=== PATIENT | female | born 1940 | race Caucasian/White ===

== ENCOUNTER → 2016-09-17 | Outpatient (CLI) | payer OTHER, BC ==
[~2016-09-17] MED LIST: ASPEC81 PO; BIOTCAP2 PO; CHOL100010 PO; CLON1TAB3 PO; CPXI INJ; CYAN100020 PO; CZR25 PO; FENT25DI2 TD; FLV400 PO; GABA800T2 PO; GLC/500 PO; GLIP-197 PO; ISOS30TA35 PO; LEVO50TA PO; LISI20TA3 PO; METH500T37 PO; METO-551 PO; NITR0.4D6; OMEP40CA PO; PANT40TA PO; PROP20TA67 PO; SIMV20TA5 PO; VITA1CRE PO; WARF1TAB6 PO; ZNT/150 PO
--- NOTE | 2016-09-17 15:05 | DIAGNOSTIC IMAGING REPORT ---
ABDOMEN AND PELVIS CT WITH ORAL CONTRAST CT DOSE: 959.81 mGycm HISTORY: Generalized abdominal pain. TECHNIQUE: Multiaxial CT images of the abdomen and pelvis were performed following the use of oral contrast. COMPARISON STUDY: Abdomen and pelvis CT 06/04/2015. FINDINGS: The lung bases are clear. No pneumoperitoneum. No pneumatosis. No suspicious lytic or blastic osseous lesions. Degenerative changes within the lumbar spine are again noted. Cholecystectomy. The unenhanced liver, spleen, pancreas, and adrenal glands are unremarkable. There are punctate bilateral intrarenal calculi. No hydronephrosis. Normal bladder. The uterus and appendix are surgically absent. No retroperitoneal lymphadenopathy. A few colonic diverticula. No bowel wall thickening or obstruction. IMPRESSION: 1. No bowel wall thickening or obstruction. 2. Punctate bilateral intrarenal calculi. No hydronephrosis. 3. Colonic diverticulosis. 4. Postoperative changes as described above. Electronically signed by: Kristopher Farooq M.D. 09/17/2016 3:03 PM Dictated Date/Time: 09/17/2016 2:55 PM
== END | disposition home or self-care (01) ==
LOC: C.CTS 11:51
DX: R10.9 Unspecified abdominal pain (principal); N20.2 Calculus of kidney with calculus of ureter; K57.30 Diverticulosis of large intestine without perforation or abscess without bleeding

== ENCOUNTER → 2016-12-30 | Outpatient (CLI) | payer OTHER, BC ==
[~2016-12-30] MED LIST changes: +ASPI81TA28 PO; +CHOLCAP2 PO; +CMD5 PO; +FING1CAP PO; +FNTTP25 TD; +FOLI1TAB7 PO; +FOLI400T41 PO; +GLC500 PO; +GLIP10TA10 PO; +HYDR-5688 PO; +LEVO75TA5 PO; +LSN20 PO; +NIFE60TA55 PO; +NORT10CA4 PO; +NRN600 PO; +NRN800 PO; +PANT40TA2 PO; +PIOG1TAB25 PO; +PRCSR30 PO; +PRED10TA PO; +RANI150T2 PO; +ROPI1TAB29 PO; +SENN8.6T7 PO; +ULT50 PO; +VALE530C3 PO; +WARF-285 PO
--- NOTE | 2016-12-30 15:08 | MAMMOGRAPHY REPORT ---
BILATERAL DIGITAL SCREENING MAMMOGRAM WITH CAD: 12/30/2016 CLINICAL HISTORY: Routine screening. Patient has no complaints. TECHNIQUE: Current study was also evaluated with a Computer Aided Detection (CAD) system. Bilatera l CC and MLO views were obtained. COMPARISON: Comparison is made to exam dated: 12/18/2015 mammogram - [facility]. BREAST COMPOSITION: The tissue of both breasts is almost entirely fatty. FINDINGS: No suspicious masses, calcifications, or areas of architectural distortion are noted in e ither breast. There has been no significant interval change compared to prior exams. Scattered bilat eral benign-appearing calcifications are not significantly changed. IMPRESSION: ACR BI-RADS CATEGORY 2: BENIGN There is no mammographic evidence of malignancy. A 1 year screening mammogram is recommended. The p atient will receive written notification of the results. Approximately 10% of breast cancers are not detected with mammography. A negative mammographic repor t should not delay biopsy if a clinically suggestive mass is present. Isabel Raphael M.D. ah/:12/30/2016 10:03:16 Attending Technologist: Tana TABOR(R)(M), [facility] Blending Technician: Smiley Tabares, [facility] letter sent: Normal 1/2 BI-RADS Code: ACR BI-RADS Category 2: Benign
== END | disposition home or self-care (01) ==
LOC: C.MAMM 09:28
DX: Z12.31 Encounter for screening mammogram for malignant neoplasm of breast (principal)

== ENCOUNTER → 2017-01-11 | Outpatient (CLI) | payer OTHER, BC ==
[2017-01-11 12:10] LABS: BASO % 0.3 %; BASO ABS # 0.02 K/uL (0-0.2); COMPLETE YES; EOS % 2.5 %; HEMATOCRIT 34.3 % (37-47); IG% 0.1 %; LYMPH % 9.8 %; LYMPH ABS # 0.74 K/uL (1.2-3.4); MEAN CELL VOLUME 93.5 fL (80-100); MEAN CORPUSCULAR HEMOGLOBIN 30.2 pg (25-34); MEAN CORPUSCULAR HGB CONC 32.4 g/dl (32-36); MEAN PLATELET VOLUME 11.4 fL (7.4-10.4); MONO % 9.8 %; NEUT % 77.5 %; PLATELET COUNT 266 K/uL (130-400); RED BLOOD COUNT 3.67 M/uL (4.2-5.4); WHITE BLOOD COUNT 7.57 K/uL (4.8-10.8)
== END | disposition home or self-care (01) ==
LOC: C.LAB 10:14
PROVIDERS: ATTEND Psychiatry & Neurology Neurology
DX: G35 Multiple sclerosis (principal)

== ENCOUNTER → 2017-02-22 | Outpatient (CLI) | payer OTHER, BC ==
[~2017-02-22] MED LIST changes: +GABA-113 PO
--- NOTE | 2017-02-22 12:18 | DIAGNOSTIC IMAGING REPORT ---
ULTRASOUND RIGHT VENOUS DOPP LOWER EXT UNILAT CLINICAL HISTORY: Right leg pain. COMPARISON STUDY: December 2013 FINDINGS: There is echogenic fibrin stranding extending from the common femoral vein to the popliteal vein. This is likely chronic. No acute intraluminal thrombus is visualized. Incidental note is made of a 12 mm cystic structure within the right medial thigh. This abuts the superficial muscle fascia but appears to lie within the subcutaneous fat. IMPRESSION: 1. No evidence of acute right lower extremity DVT 2. Fibrin stranding extending from the common femoral vein to the popliteal vein. This is felt to be chronic 3. 12 mm cystic focus within the fat of the right medial thigh Electronically signed by: Adam Khoury M.D. 02/22/2017 12:17 PM Dictated Date/Time: 02/22/2017 12:14 PM
== END | disposition home or self-care (01) ==
LOC: C.ULTRBC 11:32
DX: M79.661 Pain in right lower leg (principal); I82.501 Chronic embolism and thrombosis of unspecified deep veins of right lower extremity; M79.89 Other specified soft tissue disorders

== ENCOUNTER → 2017-05-27 | Outpatient (CLI) | payer OTHER, BC ==
[~2017-05-27] MED LIST changes: -CMD5 PO; -FOLI400T41 PO; -GABA-113 PO; -HYDR-5688 PO; -NORT10CA4 PO; -NRN600 PO; -PANT40TA2 PO; -PRCSR30 PO; +PRT/40 PO; -SENN8.6T7 PO
[2017-05-27 11:04] LABS: BASO % 0.2 %; BASO ABS # 0.01 K/uL (0-0.2); COMPLETE YES; EOS % 7.7 %; HEMATOCRIT 31.4 % (37-47); IG% 0.2 %; LYMPH % 5.9 %; LYMPH ABS # 0.36 K/uL (1.2-3.4); MEAN CELL VOLUME 92.1 fL (80-100); MEAN CORPUSCULAR HEMOGLOBIN 30.8 pg (25-34); MEAN CORPUSCULAR HGB CONC 33.4 g/dl (32-36); MEAN PLATELET VOLUME 10.6 fL (7.4-10.4); MONO % 14.5 %; NEUT % 71.5 %; PLATELET COUNT 253 K/uL (130-400); RED BLOOD COUNT 3.41 M/uL (4.2-5.4); WHITE BLOOD COUNT 6.13 K/uL (4.8-10.8)
== END | disposition home or self-care (01) ==
LOC: C.LAB 09:38
PROVIDERS: ATTEND Physician Assistant
DX: G35 Multiple sclerosis (principal)

== ENCOUNTER 2017-06-19 07:35 | Emergency (ER) | payer OTHER, BC ==
[~2017-06-19] VITALS: Ht 152.4 cm; Wt 80.0 kg
[~2017-06-19 07:35] MED LIST changes: -ASPI81TA28 PO; -CHOLCAP2 PO; -FING1CAP PO; -FNTTP25 TD; -FOLI1TAB7 PO; -GLC500 PO; -GLIP10TA10 PO; -LEVO75TA5 PO; -LSN20 PO; -NIFE60TA55 PO; -NRN800 PO; -PIOG1TAB25 PO; -PRED10TA PO; -PRT/40 PO; -RANI150T2 PO; -ROPI1TAB29 PO; -ULT50 PO; -VALE530C3 PO; -WARF-285 PO
[2017-06-19 07:41] VITALS: TEMP 36.4; Ht 152.4 cm; Wt 80.0 kg
[2017-06-19] MEDS ORDERED: MoRPHine SULFATE 2 MG/ML CARP IV STA ×3 (08:14→14:12)
[2017-06-19] MEDS ORDERED: FNTTP25 TD (08:38)
[2017-06-19] MEDS ORDERED: FING1CAP PO (08:38)
[2017-06-19] MEDS ORDERED: ROPI1TAB29 PO (08:38)
[2017-06-19] MEDS ORDERED: PRT/40 PO (08:38)
[2017-06-19] MEDS ORDERED: CHOLCAP2 PO (08:38)
[2017-06-19] MEDS ORDERED: GLC500 PO (08:38)
[2017-06-19] MEDS ORDERED: PIOG1TAB25 PO (08:38)
[2017-06-19] MEDS ORDERED: FOLI1TAB7 PO (08:38)
[2017-06-19] MEDS ORDERED: ULT50 PO (08:38)
[2017-06-19] MEDS ORDERED: NIFE60TA55 PO (08:38)
[2017-06-19] MEDS ORDERED: LEVO75TA5 PO (08:38)
[2017-06-19] MEDS ORDERED: NRN800 PO (08:38)
[2017-06-19] MEDS ORDERED: LSN20 PO (08:38)
[2017-06-19] MEDS ORDERED: RANI150T2 PO (08:38)
[2017-06-19] MEDS ORDERED: WARF-285 PO (08:38)
[2017-06-19] MEDS ORDERED: ASPI81TA28 PO (08:38)
[2017-06-19] MEDS ORDERED: GLIP10TA10 PO (08:38)
[2017-06-19] MEDS ORDERED: VALE530C3 PO (08:38)
[2017-06-19] MEDS ORDERED: PROMETHAZINE HCL INJ 12.5 MG in SODIUM CHLORIDE 0.9% 50ML 50 ML IV STA (08:45)
[2017-06-19 08:49] LABS: BASO % 0.6 %; BASO ABS # 0.03 K/uL (0-0.2); COMPLETE YES; EOS % 4.7 %; HEMATOCRIT 34.5 % (37-47); IG% 0.2 %; LYMPH % 8.1 %; LYMPH ABS # 0.43 K/uL (1.2-3.4); MEAN CORPUSCULAR HEMOGLOBIN 31.2 pg (25-34); MEAN CORPUSCULAR HGB CONC 33.9 g/dl (32-36); MEAN PLATELET VOLUME 10.5 fL (7.4-10.4); MONO % 14.8 %; NEUT % 71.6 %; PLATELET COUNT 301 K/uL (130-400); RED BLOOD COUNT 3.75 M/uL (4.2-5.4); WHITE BLOOD COUNT 5.34 K/uL (4.8-10.8)
[2017-06-19 09:06] LABS: URINE APPEARANCE CLEAR (CLEAR); URINE BILIRUBIN NEG (NEG); URINE COLOR YELLOW; URINE EPITHELIAL CELL AUTO >30 /lpf (0-5); URINE NITRITE NEG (NEG); URINE SPECIFIC GRAVITY 1.015 (1.000-1.030); UROBILINOGEN NEG (NEG)
[2017-06-19 09:08] LABS: BUN/CREATININE RATIO 17.8 (10-20); CALCIUM 9.5 mg/dl (8.5-10.1); CREATININE 1.4 mg/dl (0.60-1.20); POTASSIUM 4.6 mmol/L (3.5-5.1)
[2017-06-19 09:09] LABS: ALB/GLOB RATIO 0.8 (0.9-2)
[2017-06-19 09:09] LABS: MANUAL MICROSCOPIC REQUIRED? NO; REVIEW REQ? NO
--- NOTE | 2017-06-19 09:51 | DIAGNOSTIC IMAGING REPORT ---
LUMBAR SPINE 5 VIEWS HISTORY: lumbar back pain COMPARISON: None. FINDINGS: There is no fracture. No subluxation. Cholecystectomy. Mild levoscoliosis of the lumbar spine. Mild to moderate facet degenerative changes most pronounced within the lower lumbar spine. Mild disc space narrowing at L4-L5 and L5-S1. Endplate osteophytes throughout the lumbar spine. IMPRESSION: No fracture or subluxation within the lumbar spine. Degenerative changes and levoscoliosis as described above. Electronically signed by: Kristopher Farooq M.D. 06/19/2017 9:50 AM Dictated Date/Time: 06/19/2017 9:49 AM
--- NOTE | 2017-06-19 09:52 | DIAGNOSTIC IMAGING REPORT ---
LEFT HIP 2 VIEWS HISTORY: Left hip pain COMPARISON: None. FINDINGS: There is no fracture or dislocation. Soft tissues are unremarkable. No radiopaque foreign bodies. IMPRESSION: No fracture or dislocation within the left hip. Electronically signed by: Kristopher Farooq M.D. 06/19/2017 9:51 AM Dictated Date/Time: 06/19/2017 9:50 AM
[2017-06-19] MEDS ORDERED: OPTIRAY 320 IV PRN (11:00)
--- NOTE | 2017-06-19 12:16 | DIAGNOSTIC IMAGING REPORT ---
ABDOMEN AND PELVIS CT WITH IV CONTRAST CT DOSE: 635.36 mGy.cm HISTORY: Left abd pain/flank pain TECHNIQUE: Multiaxial CT images of the abdomen and pelvis were performed following the use of intravenous contrast. A dose lowering technique was utilized adhering to the principles of ALARA. COMPARISON STUDY: Abdomen and pelvis CT 09/17/2016. FINDINGS: Mild dependent changes seen at the lung bases. No pneumoperitoneum. No pneumatosis. Degenerative changes within the lumbar spine are again noted. Cholecystectomy. The liver, pancreas, spleen, adrenal glands are unremarkable. There are few punctate bilateral renal calculi. No ureteral calculi. No hydronephrosis. No retroperitoneal lymphadenopathy. The bladder is unremarkable. The uterus and appendix are surgically absent. Colonic diverticulosis. No bowel wall thickening or obstruction. IMPRESSION: 1. Bilateral nephrolithiasis. No ureteral stones. No hydronephrosis. 2. Colonic diverticulosis. 3. No bowel wall thickening or obstruction. Electronically signed by: Kristopher Farooq M.D. 06/19/2017 12:14 PM Dictated Date/Time: 06/19/2017 12:09 PM
[2017-06-19] MEDS ORDERED: PRED10TA PO (14:22)
[2017-06-19 15:25] VITALS: BP 161/72; PULSE 61; O2SAT 96
--- NOTE | 2017-06-21 05:33 | EMERGENCY ROOM VISIT NOTE ---
ED Visit Note First contact with patient: 07:46 Physician Crisis Manager Supervision Note: I interviewed and examined the patient. Discussed with Michael Rene PA-C and agree with findings and plan as documented in the note. Any exceptions or clarifications are listed here: [None]. XRay results were reviewed with pt and her . Lab work reveals a mild renal insufficiency c/w previous history. Pt continued to complain of pain, CT abd pelvis was ordered and is negative for acute inflammatory process. Pt was informed her chronic narcotic Rx would need to be written by her PCP/neurologist. Pt was d/c to the care of and will return to the ED for worsening of symptoms or any medical concerns. Documented By: Blanka Dodge
--- NOTE | 2017-06-21 15:05 | EMERGENCY ROOM VISIT NOTE ---
History First contact with patient: 07:58 Chief Complaint: PAIN (GENERALIZED) Stated Complaint: SEVERE PAIN IN LT HIP AND BACK History of Present Illness The patient is a 77 year old white female who presents to the Emergency Room with complaints of severe left-sided body pain extends from her abdomen through her left calf. Patient has chronic lower extremity pain, but states it is worse today. She feels as though it must be coming from her hip. With further questioning, she actually has left-sided back pain, left-sided abdominal pain, left-sided hip pain, and pain into her left thigh and calf. She denies any numbness or tingling. There were no falls. She is on narcotics. She uses fennel patches 25 g daily. She has been doubling her patches over the last week. She states she will run out of them. She did call Dr. Pierce's office for refill on Tuesday, but has not heard back from the office. She denies any chest pain or shortness of breath. Her accompanies her today. She denies any urinary symptoms. No cold symptoms such as fevers, chills, sweats, nausea, vomiting, or diarrhea. Review of Systems REVIEW OF SYSTEM: HEENT: No dizziness or tinnitus. There is no difficulty swallowing and no oral lesions are present. LYMPH: No adenopathy. PULMONARY: No cough, shortness of breath, sputum production or hemoptysis. CARDIOVASCULAR: No chest pain, palpitations, shortness of breath or peripheral edema. GASTROINTESTINAL: No diarrhea, constipation, nausea, vomiting. GENITOURINARY: No frequency, urgency or nocturia. NEUROLOGIC: No weakness, muscle tenderness, epilepsy or history of neurological problems. No history of chronic headaches. MUSCULOSKELETAL: No history of joint tenderness/swelling. Positive history of arthritis and arthralgias. Positive history of MS. SKIN: No rashes or lesions. PSYCHIATRIC: Positive history of depression. ENDOCRINE: No history of thyroid disorders, or abnormal hair growth. Positive history of diabetes. Past Medical/Surgical History Medical Problems: (1) Blindness of both eyes (2) Diabetes (3) DVT (deep venous thrombosis) (4) Heart disease (5) HTN (hypertension) (6) MS (multiple sclerosis) Surgical Problems: (1) Hx of cholecystectomy (2) Stented coronary artery Family History Diabetes mellitus FHx: heart disease Hypertension Social History Smoking Status: Never Smoker Smokeless Tobacco Use: No Alcohol Use: none Drug Use: none Marital Status: Housing Status: lives with significant other Occupation Status: retired Current/Historical Medications Scheduled Aspirin (Aspirin Ec), 81 MG PO DAILY Biotin (Biotin 5000), 1 CAP PO QAM Cholecalciferol (D3-50), 1 CAP PO WK Cyanocobalamin (Vitamin B12), 1 TAB PO DAILY Fentanyl (Fentanyl), 1 PATCH TD [id number] Fingolimod Hcl (Gilenya), 1 CAP PO DAILY Folic Acid (Folvite), 1 MG PO DAILY Gabapentin (Gabapentin), 1 TAB PO TID Glipizide (Glipizide), 1 TAB PO BID Levothyroxine Sodium (Levothyroxine Sodium), 1 TAB PO DAILY Lisinopril (Prinivil), 1 TAB PO DAILY Lisinopril (Lisinopril), 1 TAB PO DAILY Metformin HCl (Metformin HCl), 1 TAB PO DAILY Metoprolol Tartrate (Lopressor), 50 MG PO DAILY Nifedipine (Procardia Xl Ext Rel), 1 TAB PO DAILY Pantoprazole (Pantoprazole Sodium), 1 TAB PO DAILY Pioglitazone Hcl (Pioglitazone Hcl), 1 TAB PO DAILY Prednisone Tab (Prednisone), 10 MG PO DIRECTED Ranitidine HCl (Ranitidine HCl), 1 TAB PO BID Ropinirole HCl (Ropinirole HCl), 1 TAB PO BID Simvastatin (Zocor), 1 TAB PO HS Tramadol HCl (Tramadol HCl), 1 TAB PO PRN Valerian (Valeriana Officinali (Valerian Root), 1 CAP PO HS Warfarin Sodium (Warfarin Sodium), 1 TAB PO DAILY Scheduled PRN Clonazepam (Klonopin), 1 MG PO TID PRN for ANXIETY Nitroglycerin (Nitroglycerin), for Chest Pain Allergies Coded Allergies: [place] Blue FCF (Verified Allergy, Unknown, UNKNOWN, 06/19/17) Dimethyl Fumarate (Verified Allergy, Unknown, UNKNOWN, 06/19/17) Physical Exam Vital Signs Date Time Temp Pulse Resp B/P (MAP) Pulse Ox O2 Delivery O2 Flow Rate FiO2 06/19/17 15:25 61 16 161/72 96 06/19/17 14:40 58 17 175/75 95 Room Air 06/19/17 14:01 61 17 182/70 95 Room Air 06/19/17 13:03 62 06/19/17 12:00 63 17 145/82 91 Room Air 06/19/17 11:44 61 14 151/73 95 Room Air 06/19/17 11:00 62 16 166/81 97 Room Air 06/19/17 10:37 58 22 155/71 94 Room Air 06/19/17 09:03 58 18 155/71 98 Room Air 06/19/17 08:55 63 06/19/17 07:41 36.4 64 18 132/71 96 Room Air Physical Exam Gen.: Frail, elderly white female, in no acute distress. Obese. Laying on a bed. Alert and oriented. She does not appear in 06/14 pain. Skin:Warm and dry with good turgor. No rashes or lesions. No ecchymosis or erythema. The patient is not diaphoretic. No abrasions. HEENT: Normocephalic atraumatic. Eyes PERRLA, EOMI. No conjunctiva or scleral injection. Nares patent bilaterally without turbinate enlargement. No significant drainage. No epistaxis. Oropharynx without erythema or exudate. Uvula midline, oral mucosa moist. No lesions present. Heart: Heart RRR. No MGR. Peripheral pulses are 2+. Lungs: Lungs are clear to auscultation. No rhonchi or wheezing. Mild basilar crackles. Fair air movement. The patient is able to take a deep breath. Abdomen: Abdomen was inspected, auscultated, and palpated. Obese. Bowel sounds present x 4. Soft, left-sided tenderness to palpation. No hepato- splenomegaly. No masses noted. No rebound, negative Tavarez sign. No pain over McBurney's point. Mild left CVA tenderness. Musculoskeletal: Low back evaluation reveals no obvious asymmetry or deformity. She has discomfort with palpation from the L3 through S1 vertebrae and disc spaces. Pain extends into the left paraspinal musculature. Pain wraps around to her left flank and hip. She has tenderness with palpation over her quadriceps and hamstring musculature on the left leg. Pain extends into the left gastroc. Intact motor function to the ankle and knee without discomfort. Motion of the left hip is painful for flexion and extension but not for log rolling. She has intact motor function to the hip and is able to perform a straight leg raise with pain. Neurologic: Gross sensation is intact across both lower extremities by soft touch. Peripheral pulses are 2+. Medical Decision & Procedures ER Provider Diagnostic Interpretation: EKG obtained today shows a sinus bradycardia with a rate of 59. No acute ST or T-wave changes. This was reviewed with Dr. Dodge. Lumbar spine and left hip films obtained today arthritic change of the lumbar spine. No significant arthritis within the left hip. No evidence for fracture. CT scan imaging of the abdomen and pelvis with IV contrast was also obtained. This was read by radiology as1. Bilateral nephrolithiasis. No ureteral stones. No hydronephrosis. 2. Colonic diverticulosis. 3. No bowel wall thickening or obstruction Laboratory Results 06/19/17 08:00 Red Blood Count 3.75, Mean Corpuscular Volume 92.0, Mean Corpuscular Hemoglobin 31.2, Mean Corpuscular Hemoglobin Concent 33.9, Mean Platelet Volume 10.5, Neutrophils (%) (Auto) 71.6, Lymphocytes (%) (Auto) 8.1, Monocytes (%) (Auto) 14.8, Eosinophils (%) (Auto) 4.7, Basophils (%) (Auto) 0.6, Neutrophils # (Auto ) 3.83, Lymphocytes # (Auto) 0.43, Monocytes # (Auto) 0.79, Eosinophils # (Auto ) 0.25, Basophils # (Auto) 0.03 06/19/17 08:00 Test 06/19/17 08:00 06/19/17 08:45 White Blood Count 5.34 K/uL (4.8-10.8) Red Blood Count 3.75 M/uL (4.2-5.4) Hemoglobin 11.7 g/dL (12.0-16.0) Hematocrit 34.5 % (37-47) Mean Corpuscular Volume 92.0 fL (80-100) Mean Corpuscular Hemoglobin 31.2 pg (25-34) Mean Corpuscular Hemoglobin Concent 33.9 g/dl (32-36) Platelet Count 301 K/uL (130-400) Mean Platelet Volume 10.5 fL (7.4-10.4) Neutrophils (%) (Auto) 71.6 % Lymphocytes (%) (Auto) 8.1 % Monocytes (%) (Auto) 14.8 % Eosinophils (%) (Auto) 4.7 % Basophils (%) (Auto) 0.6 % Neutrophils # (Auto) 3.83 K/uL (1.4-6.5) Lymphocytes # (Auto) 0.43 K/uL (1.2-3.4) Monocytes # (Auto) 0.79 K/uL (0.11-0.59) Eosinophils # (Auto) 0.25 K/uL (0-0.5) Basophils # (Auto) 0.03 K/uL (0-0.2) RDW Standard Deviation 46.4 fL (36.4-46.3) RDW Coefficient of Variation 13.8 % (11.5-14.5) Immature Granulocyte % (Auto) 0.2 % Immature Granulocyte # (Auto) 0.01 K/uL (0.00-0.02) Anion Gap 6.0 mmol/L (3-11) Est Creatinine Clear Calc Drug Dose 32.0 ml/min Estimated GFR () 42.2 Estimated GFR (Non- 36.4 BUN/Creatinine Ratio 17.8 (10-20) Calcium Level 9.5 mg/dl (8.5-10.1) Total Bilirubin 0.3 mg/dl (0.2-1) Aspartate Amino Transf (AST/SGOT) 30 U/L (15-37) Alanine Aminotransferase (ALT/SGPT) 26 U/L (12-78) Alkaline Phosphatase 74 U/L (45-117) Total Protein 7.8 gm/dl (6.4-8.2) Albumin 3.4 gm/dl (3.4-5.0) Globulin 4.4 gm/dl (2.5-4.0) Albumin/Globulin Ratio 0.8 (0.9-2) Chemistry Specimen Hemolysis Urine Color YELLOW Urine Appearance CLEAR (CLEAR) Urine pH 5.0 (4.5-7.5) Urine Specific Britton 1.015 (1.000-1.030) Urine Protein NEG (NEG) Urine Glucose (UA) NEG (NEG) Urine Ketones NEG (NEG) Urine Occult Blood NEG (NEG) Urine Nitrite NEG (NEG) Urine Bilirubin NEG (NEG) Urine Urobilinogen NEG (NEG) Urine Leukocyte Esterase TRACE (NEG) Urine WBC (Auto) 1-5 /hpf (0-5) Urine RBC (Auto) 0-4 /hpf (0-4) Urine Hyaline Casts (Auto) 1-5 /lpf (0-5) Urine Epithelial Cells (Auto) >30 /lpf (0-5) Urine Bacteria (Auto) NEG (NEG) CBC, chem panel, and UA were obtained. They are unremarkable. Medications Administered Medications (Trade) Dose Ordered Sig/Love Route Start Time Stop Time Status Last Admin Dose Admin Morphine Sulfate (MoRPHine SULFATE INJ) 2 mg NOW STAT IV 06/19/17 08:14 06/19/17 08:30 DC 06/19/17 08:46 2 MG Promethazine HCl 12.5 mg/Sodium Chloride 50.5 ml @ 204 mls/hr NOW STAT IV 06/19/17 08:45 06/19/17 08:59 DC 06/19/17 09:01 204 MLS/HR Morphine Sulfate (MoRPHine SULFATE INJ) 2 mg NOW STAT IV 06/19/17 10:43 06/19/17 10:46 DC 06/19/17 11:12 2 MG Morphine Sulfate (MoRPHine SULFATE INJ) 2 mg NOW STAT IV 06/19/17 14:12 06/19/17 14:13 DC 06/19/17 14:39 2 MG Morphine 2 mg IV 3, Phenergan 12.5 mg IV ED Course Patient and her were educated regarding today's findings. Conservative care measures were discussed. IV was established. Labs were obtained. EKG was also obtained. No significant abnormalities were noted. Lumbar spine and left hip imaging was obtained. No evidence for fracture. She does have considerable arthritic change in the lumbar spine. Imaging of the abdomen and pelvis was obtained using CT. This was unremarkable. She was given multiple doses of morphine 2 mg IV for pain control. She was also given Phenergan 12.5 mg IV. She had some improvement in her pain. She was asking for additional fentanyl patches. I informed her that she must receive these through her neurologist her PCP. I did provide her with a prescription for low-dose prednisone to see if this would improve her discomfort. Continue with her fentanyl patches. She was cautioned about taking too many narcotic medications. Her is also aware. She has Percocet at home to use for breakthrough pain. She may require further imaging such as MRI, of her lumbar spine to evaluate nerve root impingement or disc pathology. Follow-up with her PCP or neurologist this week for further exam. Return to the ED for any inability to void or worsening symptoms. Patient was seen in conjunction with Dr. Dodge, who also evaluated the patient and concurred with today's diagnosis and treatment plan. Medical Decision Possibility of cardiac source, bowel obstruction, ovarian cyst, colitis, hip fracture, DJD, UTI, kidney stone, and radiculopathy were considered, among others. Impression Primary Impression: Lumbar radiculopathy, chronic Departure Information Dispostion Home / Self-Care Condition GOOD Prescriptions Prednisone Tab (PREDNISONE) 10 Mg Tab 10 MG PO DIRECTED, #7 TAB take 2 pills daily x 2 days, then take 1 pill daily x 2 days, then take 1/2 pill daily x 2 days Prov: Michael Rene,P.A. 06/19/17 Referrals Martha Pierce M.D. Forms WORK / SCHOOL INSTRUCTIONS, HOME CARE DOCUMENTATION FORM, IMPORTANT VISIT INFORMATION Patient Instructions My [facility] [employer] Additional Instructions Continue your fentanyl patches as previously directed Start prednisone daily-monitor your sugars Take your oxycodone at home if needed for breakthrough pain Ice to the low back and left hip as needed for discomfort Call your PCP and Dr. Pierce tomorrow to discuss further medication You may require MRI imaging of your lumbar spine for further evaluation Return to the ED for any other worsening of symptoms
== END 2017-06-19 15:25 | disposition home or self-care (01) ==
LOC: C.EDB 07:36
DX: M47.26 Other spondylosis with radiculopathy, lumbar region (principal); G89.29 Other chronic pain; F32.9 Major depressive disorder, single episode, unspecified; E11.9 Type 2 diabetes mellitus without complications; H54.7 Unspecified visual loss; I10 Essential (primary) hypertension; G35 Multiple sclerosis; R00.1 Bradycardia, unspecified; Z86.718 Personal history of other venous thrombosis and embolism; Z95.5 Presence of coronary angioplasty implant and graft; Z79.82 Long term (current) use of aspirin; Z79.01 Long term (current) use of anticoagulants; Z79.84 Long term (current) use of oral hypoglycemic drugs; Z83.3 Family history of diabetes mellitus; Z82.49 Family history of ischemic heart disease and other diseases of the circulatory system

== ENCOUNTER 2017-07-15 12:05 | Inpatient (IN) | payer OTHER, BC ==
[~2017-07-15] VITALS: Ht 152.4 cm; Wt 80.0 kg
[~2017-07-15 12:05] MED LIST changes: -ASPEC81 PO; +ASPI81TA28 PO; -CHOL100010 PO; +CHOLCAP2 PO; -CPXI INJ; -CZR25 PO; -FENT25DI2 TD; +FING1CAP PO; -FLV400 PO; +FNTTP25 TD; +FOLI1TAB7 PO; -GABA800T2 PO; -GLC/500 PO; +GLC500 PO; -GLIP-197 PO; +GLIP10TA10 PO; -ISOS30TA35 PO; -LEVO50TA PO; +LEVO75TA5 PO; +LSN20 PO; -METH500T37 PO; +NIFE60TA55 PO; +NRN800 PO; -OMEP40CA PO; -PANT40TA PO; +PANT40TA2 PO; +PIOG1TAB25 PO; +PRED10TA PO; -PROP20TA67 PO; +RANI150T2 PO; +ROPI1TAB29 PO; +ULT50 PO; +VALE530C3 PO; -VITA1CRE PO; +WARF-285 PO; -WARF1TAB6 PO; -ZNT/150 PO
[2017-07-15] MEDS ORDERED: ONDANSETRON INJ 2 MG/ML 2 ML VIAL IV PRN (12:30)
--- NOTE | 2017-07-15 12:49 | EMERGENCY ROOM VISIT NOTE ---
History Report prepared by Altaf: Maggie Pina Under the Supervision of: Dr. Junito Alvarado M.D. First contact with patient: 12:17 Chief Complaint: HIP PAIN Stated Complaint: LEFT HIP PAIN History of Present Illness The patient is a 77 year old female who presents to the Emergency Room with complaints of persistent left hip pain that began several weeks ago. She currently rates her discomfort as a 10/10 in severity. The patient's states that the patient was evaluated in the emergency department 2 weeks ago and was placed on Prednisone. He states that the patient followed up with her PCP's office and states that her pain has persisted. The patient states that she has been prescribed pain medications that have not alleviated her pain. She states that she is scheduled for an MRI in one week. The patient denies any rash. She states that she is on Coumadin and 81 mg of Aspirin. Source of History: patient Onset: several weeks ago Position: other (left hip) Symptom Intensity: 10/10 Timing: other (persistent) Associated Symptoms: No rash Review of Systems All systems have been listed, reviewed, and are negative other than those previously mentioned. Please see Additional Medical History Sheet. Past Medical & Surgical Medical Problems: (1) Blindness of both eyes (2) Chronic lumbosacral pain (3) Diabetes (4) DVT (deep venous thrombosis) (5) Heart disease (6) HTN (hypertension) (7) MS (multiple sclerosis) (8) Multiple sclerosis exacerbation Surgical Problems: (1) Hx of cholecystectomy (2) Stented coronary artery Family History Diabetes mellitus FHx: heart disease Hypertension Social History Smoking Status: Never Smoker Alcohol Use: none Drug Use: none Marital Status: Housing Status: lives with significant other Occupation Status: retired Current/Historical Medications Scheduled Aspirin (Aspirin Ec), 81 MG PO DAILY Biotin (Biotin 5000), 1 CAP PO QAM Cholecalciferol (D3-50), 1 CAP PO WK Cyanocobalamin (Vitamin B12), 1 TAB PO DAILY Fentanyl (Fentanyl), 1 PATCH TD [id number] Fingolimod Hcl (Gilenya), 1 CAP PO DAILY Folic Acid (Folvite), 400 MCG PO DAILY Gabapentin (Gabapentin), 1 TAB PO BID Glipizide (Glipizide), 1 TAB PO BID Levothyroxine Sodium (Levothyroxine Sodium), 1 TAB PO DAILY Lisinopril (Prinivil), 1 TAB PO DAILY Metformin HCl (Metformin HCl), 1 TAB PO DAILY Nifedipine (Procardia Xl Ext Rel), 1 TAB PO DAILY Pantoprazole (Pantoprazole Sodium), 1 TAB PO DAILY Pioglitazone Hcl (Pioglitazone Hcl), 1 TAB PO DAILY Ranitidine HCl (Ranitidine HCl), 1 TAB PO BID Ropinirole HCl (Ropinirole HCl), 1 TAB PO BID Simvastatin (Zocor), 1 TAB PO HS Tramadol HCl (Tramadol HCl), 1 TAB PO PRN Valerian (Valeriana Officinali (Valerian Root), 1 CAP PO HS Warfarin Sodium (Warfarin Sodium), 1 TAB PO UD Scheduled PRN Nitroglycerin (Nitroglycerin), for Chest Pain Allergies Coded Allergies: [place] Blue FCF (Verified Allergy, Unknown, UNKNOWN, 06/19/17) Dimethyl Fumarate (Verified Allergy, Unknown, UNKNOWN, 06/19/17) Physical Exam Vital Signs Date Time Temp Pulse Resp B/P (MAP) Pulse Ox O2 Delivery O2 Flow Rate FiO2 07/15/17 16:00 60 20 97 Nasal Cannula 2.0 07/15/17 14:32 59 16 100/51 98 Nasal Cannula 2.0 07/15/17 13:22 Nasal Cannula 2.0 07/15/17 13:22 92 Room Air 07/15/17 12:56 60 18 98 Room Air 07/15/17 12:10 36.4 64 22 156/107 96 Room Air Physical Exam GENERAL: Patient awake, alert, oriented x 3. Patient follows commands. Patient is extremely anxious and tearful, appears to be in moderate to severe distress. Patient does not appear toxic. Patient is adequately hydrated and well-nourished. SKIN: No erythema, pallor, cyanosis, rash or signs of trauma. HEENT: Normal head, pupils equal, reactive to light and accommodation. LUNGS: Clear to auscultation. No wheezes, no rales, no rhonchi. HEART: No murmurs. No gallops. No rubs ABDOMEN: Obese, soft, marked left lower quadrant tenderness. EXTREMITIES: Good range of motion of both hips. No signs of trauma. No pedal or pretibial edema. No calf or thigh tenderness. NEUROLOGIC: Cranial nerves II-XII within normal limits. No gross motor sensory function deficits. Medical Decision & Procedures ER Provider Diagnostic Interpretation: Radiology results as stated below per my review and radiologist interpretation: MRI OF THE LUMBAR SPINE WITHOUT IV CONTRAST CLINICAL HISTORY: Lumbar radiculopathy. COMPARISON STUDY: Abdominal CT dated 06/19/2017. TECHNIQUE: MRI of the lumbar spine is performed utilizing various T1 and T2-weighted sequences in the axial and sagittal planes. IV contrast was not administered for this examination. FINDINGS: Marrow signal intensity is heterogeneous. Vertebral body height is maintained throughout the lumbar spine. Minimal anterolisthesis is noted at L4-L5. Alignment is otherwise preserved. Small anterior osteophytes are seen throughout. The transverse and spinous processes appear intact. There is no evidence of spondylolysis. No destructive bony lesion is seen. Chronic degenerative endplate change is seen at all lumbar levels. No significant marrow edema is identified. Intervertebral discs: Degenerative disc desiccation and mild loss of height is seen throughout the lumbar spine. Spinal cord: The partially imaged spinal cord is normal in morphology and signal intensity. The conus medullaris terminates at the level of L1. The nerve roots of the cauda equina are normal in morphology. T12-L1: There is a small posterior disc bulge seen on the lateral projection. The central canal is clear. L1-L2: There is a posterior disc bulge eccentric to the left. There is no significant acquired compromise of the central canal. The disc bulge causes left-sided subarticular stenosis and may impinge on the exiting left L1 and the transiting left L2 nerve roots. The neural foramina are patent. L2-L3: There is a small posterior disc bulge. In conjunction with hypertrophy of the ligamentum flavum, there is minimal acquired compromise of the central canal with a minimum AP diameter of 9.5 mm. There is mild bilateral subarticular stenosis. The neural foramina are patent. L3-L4: There is posterior disc bulge with annular fissure. There is no significant acquired compromise of the central canal at this level. There is mild bilateral subarticular stenosis. Facet arthropathy causes minimal left neural foraminal stenosis. L4-L5: There is broad-based posterior disc bulge with annular fissure eccentric to the right. In conjunction with hypertrophy of the ligamentum flavum, this causes moderate acquired compromise of the central canal with a minimum AP diameter of 6 mm. There is bilateral subarticular stenosis, right greater than left with possible impingement on the exiting right L4 and both transiting nerve roots. There is minimal tethering of the cauda equina at this level. Facet arthropathy causes mild bilateral neural foraminal stenosis. L5-S1: There is a posterior disc bulge with annular fissure. There is no significant acquired compromise of the central canal at this level. There is bilateral subarticular stenosis with possible impingement on the exiting bilateral L5 and the transiting bilateral nerve roots. Facet arthropathy causes moderate bilateral neural foraminal stenosis. Sacrum: The visual sacrum is normal in morphology and signal intensity. Soft tissues: There is fatty atrophy of the paraspinous and iliopsoas musculature. The kidneys demonstrate cortical atrophy. The retroperitoneal structures are grossly unremarkable but incompletely assessed. IMPRESSION: 1. Multilevel lumbosacral spondylosis as above with acquired compromise of the central canal that is greatest at L4-L5. See discussion for detailed [id number] analysis. 2. No destructive bony lesion is seen. Dictated: 07/15/2017 2:49 PM Transcribed: 07/15/2017 3:05 PM [email or web address] Laboratory Results Test 07/15/17 13:00 Immature Granulocyte % (Auto) 0.2 % White Blood Count 5.18 K/uL (4.8-10.8) Red Blood Count 3.54 M/uL (4.2-5.4) Hemoglobin 10.9 g/dL (12.0-16.0) Hematocrit 33.1 % (37-47) Mean Corpuscular Volume 93.5 fL (80-100) Mean Corpuscular Hemoglobin 30.8 pg (25-34) Mean Corpuscular Hemoglobin Concent 32.9 g/dl (32-36) Platelet Count 227 K/uL (130-400) Mean Platelet Volume 10.3 fL (7.4-10.4) Neutrophils (%) (Auto) 73.4 % Lymphocytes (%) (Auto) 10.0 % Monocytes (%) (Auto) 11.2 % Eosinophils (%) (Auto) 4.6 % Basophils (%) (Auto) 0.6 % Neutrophils # (Auto) 3.80 K/uL (1.4-6.5) Lymphocytes # (Auto) 0.52 K/uL (1.2-3.4) Monocytes # (Auto) 0.58 K/uL (0.11-0.59) Eosinophils # (Auto) 0.24 K/uL (0-0.5) Basophils # (Auto) 0.03 K/uL (0-0.2) Immature Granulocyte # (Auto) 0.01 K/uL (0.00-0.02) Erythrocyte Sedimentation Rate 43 mm/hr (0-21) Total Bilirubin 0.2 mg/dl (0.2-1) Aspartate Amino Transf (AST/SGOT) 21 U/L (15-37) Alanine Aminotransferase (ALT/SGPT) 33 U/L (12-78) Alkaline Phosphatase 68 U/L (45-117) Total Creatine Kinase 62 U/L (26-192) Total Protein 7.1 gm/dl (6.4-8.2) Albumin 3.2 gm/dl (3.4-5.0) Globulin 3.9 gm/dl (2.5-4.0) Albumin/Globulin Ratio 0.8 (0.9-2) Laboratory results as stated above per my review. Medications Administered Medications (Trade) Dose Ordered Sig/Love Route Start Time Stop Time Status Last Admin Dose Admin Morphine Sulfate (MoRPHine SULFATE INJ) 4 mg Q1H PRN IV 07/15/17 12:30 07/15/17 23:18 DC 07/15/17 14:33 4 MG Ondansetron HCl (Zofran Inj) 4 mg Q1HWA PRN IV 07/15/17 12:30 07/15/17 23:20 DC 07/15/17 12:56 4 MG Lorazepam (Ativan Inj) 1 mg NOW STAT IV 07/15/17 13:02 07/15/17 13:03 DC 07/15/17 13:18 1 MG ED Course 1218: Past medical records reviewed. The patient was evaluated in room A12B. A complete history and physical examination was performed. 1230: Ordered Zofran Inj 4 mg IV, Morphine Sulfate 4 mg IV. 1302: Ordered Ativan Inj 1 mg IV. 1409: I reevaluated the patient and she is experiencing intractable pain. I discussed the exam findings with her and I discussed the treatment plan. She verbalized complete understanding and agreement. She is going to be evaluated for further treatment. Medical Decision Nurses notes reviewed. Medical history sheet reviewed. Differential diagnosis includes but is not limited to: intraabdominal/pelvic mass, sciatica, lumbar radiculopathy, hip fracture, degenerative joint disease, anxiety. Labs and imaging were obtained. Please see above. The patient's significant degenerative changes in her lower back which I believe is a source of her pain. The patient was complaining of significant pain and did not feel she was capable of returning home. I discussed care with the hospitalist who agreed to further evaluate the patient. The patient was given pain medication here in the ED. Medication Reconcilliation Current Medication List: was personally reviewed by me Blood Pressure Screening Patient's blood pressure: Normal blood pressure Impression Primary Impression: Spinal stenosis Additional Impressions: Degenerative joint disease Intractable pain Scribe Attestation The scribe's documentation has been prepared under my direction and personally reviewed by me in its entirety. I confirm that the note above accurately reflects all work, treatment, procedures, and medical decision making performed by me. Departure Information Dispostion Being Evaluated By Hospitalist Referrals Chris Reis PA-C (PCP) Problem Qualifiers
[2017-07-15] MEDS: MoRPHine SULFATE 4 MG/ML 1 ML CARP\\VIAL IV PRN ×2 (12:56→14:33)
[2017-07-15] MEDS ORDERED: LORAZEPAM 2 MG/ML 1 ML VIAL IV STA (13:02)
[2017-07-15 13:15] LABS: BASO % 0.6 %; BASO ABS # 0.03 K/uL (0-0.2); COMPLETE YES; EOS % 4.6 %; HEMATOCRIT 33.1 % (37-47); IG% 0.2 %; LYMPH ABS # 0.52 K/uL (1.2-3.4); MEAN CELL VOLUME 93.5 fL (80-100); MEAN CORPUSCULAR HEMOGLOBIN 30.8 pg (25-34); MEAN CORPUSCULAR HGB CONC 32.9 g/dl (32-36); MEAN PLATELET VOLUME 10.3 fL (7.4-10.4); MONO % 11.2 %; NEUT % 73.4 %; PLATELET COUNT 227 K/uL (130-400); RED BLOOD COUNT 3.54 M/uL (4.2-5.4); WHITE BLOOD COUNT 5.18 K/uL (4.8-10.8)
[2017-07-15 13:23] LABS: INR 1.9 (0.9-1.1); PROTHROMBIN TIME (PATIENT) 21.4 SECONDS (9.0-12.0)
[2017-07-15 13:43] LABS: BUN/CREATININE RATIO 18.1 (10-20); CREATININE 1.56 mg/dl (0.60-1.20); POTASSIUM 4.9 mmol/L (3.5-5.1)
[2017-07-15 13:45] LABS: ALB/GLOB RATIO 0.8 (0.9-2)
--- NOTE | 2017-07-15 15:05 | DIAGNOSTIC IMAGING REPORT ---
MRI OF THE LUMBAR SPINE WITHOUT IV CONTRAST CLINICAL HISTORY: Lumbar radiculopathy. COMPARISON STUDY: Abdominal CT dated 06/19/2017. TECHNIQUE: MRI of the lumbar spine is performed utilizing various T1 and T2-weighted sequences in the axial and sagittal planes. IV contrast was not administered for this examination. FINDINGS: Marrow signal intensity is heterogeneous. Vertebral body height is maintained throughout the lumbar spine. Minimal anterolisthesis is noted at L4-L5. Alignment is otherwise preserved. Small anterior osteophytes are seen throughout. The transverse and spinous processes appear intact. There is no evidence of spondylolysis. No destructive bony lesion is seen. Chronic degenerative endplate change is seen at all lumbar levels. No significant marrow edema is identified. Intervertebral discs: Degenerative disc desiccation and mild loss of height is seen throughout the lumbar spine. Spinal cord: The partially imaged spinal cord is normal in morphology and signal intensity. The conus medullaris terminates at the level of L1. The nerve roots of the cauda equina are normal in morphology. T12-L1: There is a small posterior disc bulge seen on the lateral projection. The central canal is clear. L1-L2: There is a posterior disc bulge eccentric to the left. There is no significant acquired compromise of the central canal. The disc bulge causes left-sided subarticular stenosis and may impinge on the exiting left L1 and the transiting left L2 nerve roots. The neural foramina are patent. L2-L3: There is a small posterior disc bulge. In conjunction with hypertrophy of the ligamentum flavum, there is minimal acquired compromise of the central canal with a minimum AP diameter of 9.5 mm. There is mild bilateral subarticular stenosis. The neural foramina are patent. L3-L4: There is posterior disc bulge with annular fissure. There is no significant acquired compromise of the central canal at this level. There is mild bilateral subarticular stenosis. Facet arthropathy causes minimal left neural foraminal stenosis. L4-L5: There is broad-based posterior disc bulge with annular fissure eccentric to the right. In conjunction with hypertrophy of the ligamentum flavum, this causes moderate acquired compromise of the central canal with a minimum AP diameter of 6 mm. There is bilateral subarticular stenosis, right greater than left with possible impingement on the exiting right L4 and both transiting nerve roots. There is minimal tethering of the cauda equina at this level. Facet arthropathy causes mild bilateral neural foraminal stenosis. L5-S1: There is a posterior disc bulge with annular fissure. There is no significant acquired compromise of the central canal at this level. There is bilateral subarticular stenosis with possible impingement on the exiting bilateral L5 and the transiting bilateral nerve roots. Facet arthropathy causes moderate bilateral neural foraminal stenosis. Sacrum: The visual sacrum is normal in morphology and signal intensity. Soft tissues: There is fatty atrophy of the paraspinous and iliopsoas musculature. The kidneys demonstrate cortical atrophy. The retroperitoneal structures are grossly unremarkable but incompletely assessed. IMPRESSION: 1. Multilevel lumbosacral spondylosis as above with acquired compromise of the central canal that is greatest at L4-L5. See discussion for detailed [id number] analysis. 2. No destructive bony lesion is seen. Dictated: 07/15/2017 2:49 PM Transcribed: 07/15/2017 3:05 PM Renate Electronically signed by: Marty Hester M.D. 07/15/2017 3:10 PM Dictated Date/Time: 07/15/2017 2:49 PM
[2017-07-15] MEDS ORDERED: IV FLUIDS COMPLETED PRN (16:30)
[2017-07-15] MEDS ORDERED: GLUCOSE 40% GEL 15 GM TUBE PO PRN (17:00)
[2017-07-15] MEDS ORDERED: DEXTROSE 50% 50 ML SYR IV PRN (17:00)
[2017-07-15] MEDS ORDERED: GLUCAGON FOR INJ 1 MG VIAL SQ PRN (17:00)
[2017-07-15] MEDS ORDERED: GLUCOSE 10 TABS/TUBE PO PRN (17:00)
[2017-07-15 17:05] VITALS: O2SAT 98; BMI 34.4
[2017-07-15] MEDS ORDERED: FOLI400T41 PO (17:09)
[2017-07-15] MEDS ORDERED: PHARMACY GLYCEMIC MGMT CONSULT PRN (18:03)
[2017-07-15 18:35] VITALS: BP 122/74; PULSE 61; TEMP 36.6; O2SAT 94
[2017-07-15] MEDS: MoRPHine SULFATE 2 MG/ML CARP IV PRN (19:13)
[2017-07-15 19:32] VITALS: O2SAT 94
[2017-07-15] MEDS ORDERED: METHYLPREDNISOLONE IV 1,000 MG in DEXTROSE 5% 250ML 250 ML IV ONE (20:30)
--- NOTE | 2017-07-15 20:51 | Pharmacy Progress Note ---
Glycemic Control Intl Consult Date of Service Jul 15, 2017. Scope Glycemic Pharmacist consulted by Lynda Shah PA-C on 07/15/17 for glycemic control and to write orders per [facility] inpatient glycemic control protocol Objective Weight (Kilograms): 80.000 Accuchecks BSG (last 24hrs): Test 07/15/17 13:00 Random Glucose 192 mg/dl (70-99) Laboratory Data (last 24hrs) Test 07/15/17 13:00 Anion Gap 8.0 mmol/L BUN/Creatinine Ratio 18.1 Blood Urea Nitrogen 28 mg/dl Creatinine 1.56 mg/dl Potassium Level 4.9 mmol/L Sodium Level 137 mmol/L White Blood Count 5.18 K/uL Red Blood Count 3.54 M/uL Hemoglobin 10.9 g/dL Hematocrit 33.1 % Mean Corpuscular Volume 93.5 fL Mean Corpuscular Hemoglobin 30.8 pg Mean Corpuscular Hemoglobin Concent 32.9 g/dl Platelet Count 227 K/uL Mean Platelet Volume 10.3 fL Neutrophils (%) (Auto) 73.4 % Lymphocytes (%) (Auto) 10.0 % Monocytes (%) (Auto) 11.2 % Eosinophils (%) (Auto) 4.6 % Basophils (%) (Auto) 0.6 % Neutrophils # (Auto) 3.80 K/uL Lymphocytes # (Auto) 0.52 K/uL Monocytes # (Auto) 0.58 K/uL Eosinophils # (Auto) 0.24 K/uL Basophils # (Auto) 0.03 K/uL Recent Pertinent Medications Outpatient Anti-diabetic Regimen: * Metformin 500 mg po daily * [id number] mg po BID * Pioglitazone 15 mg po daily * A1c = pending for tomorrow Risk Factors for Insulin Resistance: * Steroids: methylprednisolone 1000 mg IV x1 * Diet: T2DM/AHA Assessment & Plan ASSESSMENT: * 77 yo F with T2DM on 3 oral medications as outpatient (unknown efficacy, HbA1c pending). Receiving high dose steroids for possible MS exacerbation. * Will initiate weight-based, high stress insulin per glycemic calculator ( slightly looser CHO ratio for now 2nd limited history at this time) * Will have high goal range to help prevent hypoglycemia in case initial estimate of insulin needs is too aggressive PLAN FOR INPATIENT GLYCEMIC CONTROL: * Holding all outpatient oral diabetes medications * Basal insulin with LANTUS 20 units SQ x1 now then 0-20 units BID based on BSG * Correctional Insulin with NOVOLOG per scale ACHS or Q6hrs while NPO - additional check at 0200 * Goal Range: Low 140 mg/dL - High 180 mg/dL * Correction Factor: 20 mg/dL/unit * Nutritional / Prandial insulin per carb ratio of 1 unit per 8 grams CHO consumed * Please note that the plan above was derived based on current level of insulin resistance and hospital stress. These recommendations are appropriate for inpatient admission only. Plan of care upon discharge will need to be reassessed to avoid potential outpatient hypo/hyperglycemia. Thank you.
[2017-07-15] MEDS: INSULIN ASPART 100 UNITS/ML 3 ML PEN SC SCH (21:03)
[2017-07-15] MEDS ORDERED: INSULIN GLARGINE SOLOSTAR 100 UNITS/ML 3 ML PEN SC ONE (21:30)
[2017-07-15] MEDS: CHECK FENTANYL PATCH PLACEMENT SCH (23:37)
[2017-07-16 00:01] VITALS: O2SAT 96
[2017-07-16 00:13] VITALS: BP 149/79; PULSE 56; TEMP 36.6; O2SAT 96
--- NOTE | 2017-07-16 00:36 | History and Physical ---
History & Physical Date & Time of Service: Jul 16, 2017 at 16:30 Chief Complaint: Chronic Lumbosacral Pain Primary Care Physician: Chris Reis PA-C History of Present Illness Source: patient, clinic records, hospital records This is a 77yo F with a PMH of MS, DM II, HTN, HLD, CAD (s/p stents x 3 in 2008) , hypothyroidism, h/o DVT (on coumadin) who presents with worsening lower back pain over the past few weeks. Patient reports chronic lower back pain, but it has progressed in severity over the last few weeks. Was evaluated in the ER for similar symptoms 2 weeks ago and was discharged on a steroid taper, which helped somewhat. Over the last few days, pain has become sharper with radiation to L hip as well. Has also noticed weakness in her L leg with her "foot dragging " while ambulating with walker. Patient follows with Dr Pierce for MS. States that recent L leg weakness is similar to previous MS flares. Usually experiences worsening symptoms with weather changes. Denies any numbness/tingling in extremities or changes with bowel/bladder function. Patient is blind in both eyes. Takes Gilenya daily. Denies any fever, chills, URI symptoms, CP, palpitations, SOB, nausea, vomiting , dysuria, LE swelling. Past Medical/Surgical History Medical Problems: (1) Blindness of both eyes Status: Chronic (2) Diabetes Status: Chronic (3) DVT (deep venous thrombosis) Status: Resolved (4) Heart disease Status: Chronic (5) HTN (hypertension) Status: Chronic (6) MS (multiple sclerosis) Status: Chronic Surgical Problems: (1) Hx of cholecystectomy Status: Resolved (2) Stented coronary artery Status: Resolved Family History Diabetes mellitus FHx: heart disease Hypertension Social History Smoking Status: Never Smoker Drug Use: none Marital Status: Occupational Status: retired Immunizations History of Influenza Vaccine: No History of Tetanus Vaccine?: Yes History of Pneumococcal: Yes History of Hepatitis B Vaccine: No Multi-Drug Resistant Organisms History of MDRO: No Allergies Coded Allergies: [place] Blue FCF (Verified Allergy, Unknown, UNKNOWN, 06/19/17) Dimethyl Fumarate (Verified Allergy, Unknown, UNKNOWN, 06/19/17) Home Medications Scheduled Aspirin (Aspirin Ec), 81 MG PO DAILY Biotin (Biotin 5000), 1 CAP PO QAM Cholecalciferol (D3-50), 1 CAP PO WK Cyanocobalamin (Vitamin B12), 1 TAB PO DAILY Fentanyl (Fentanyl), 1 PATCH TD [id number] Fingolimod Hcl (Gilenya), 1 CAP PO DAILY Folic Acid (Folvite), 400 MCG PO DAILY Gabapentin (Gabapentin), 1 TAB PO BID Glipizide (Glipizide), 1 TAB PO BID Levothyroxine Sodium (Levothyroxine Sodium), 1 TAB PO DAILY Lisinopril (Prinivil), 1 TAB PO DAILY Metformin HCl (Metformin HCl), 1 TAB PO DAILY Nifedipine (Procardia Xl Ext Rel), 1 TAB PO DAILY Pantoprazole (Pantoprazole Sodium), 1 TAB PO DAILY Pioglitazone Hcl (Pioglitazone Hcl), 1 TAB PO DAILY Ranitidine HCl (Ranitidine HCl), 1 TAB PO BID Ropinirole HCl (Ropinirole HCl), 1 TAB PO BID Simvastatin (Zocor), 1 TAB PO HS Tramadol HCl (Tramadol HCl), 1 TAB PO PRN Valerian (Valeriana Officinali (Valerian Root), 1 CAP PO HS Warfarin Sodium (Warfarin Sodium), 1 TAB PO UD Scheduled PRN Nitroglycerin (Nitroglycerin), for Chest Pain Review of Systems Ten systems reviewed and negative except as noted in the HPI. Physical Exam Vital Signs Date Time Temp Pulse Resp B/P (MAP) Pulse Ox O2 Delivery O2 Flow Rate FiO2 07/15/17 19:32 94 Nasal Cannula 1.0 07/15/17 18:35 36.6 61 18 122/74 (90) 94 Nasal Cannula 1.0 07/15/17 17:08 36.5 60 18 120/51 98 Nasal Cannula 2.0 07/15/17 17:05 98 Nasal Cannula 2.0 07/15/17 16:00 60 20 97 Nasal Cannula 2.0 07/15/17 14:32 59 16 100/51 98 Nasal Cannula 2.0 07/15/17 13:22 Nasal Cannula 2.0 07/15/17 13:22 92 Room Air 07/15/17 12:56 60 18 98 Room Air 07/15/17 12:10 36.4 64 22 156/107 96 Room Air General Appearance: + mild distress Head: normocephalic, atraumatic Eyes: normal inspection (Blind in both eyes), PERRL, sclerae normal ENT: normal ENT inspection, hearing grossly normal, pharynx normal (moist mucous membranes ) Neck: supple, thyroid normal, trachea midline Respiratory/Chest: chest non-tender, lungs clear, normal breath sounds, no respiratory distress, no accessory muscle use Cardiovascular: regular rate, rhythm, no murmur Abdomen/GI: normal bowel sounds, soft, no organomegaly, + tenderness ( Diffusely tender) Back: normal inspection, no muscle spasm, + pertinent finding (TTP of lumbosacral spine and paraspinal muscles.) Extremities/Musculoskelatal: no calf tenderness, no pedal edema, non-tender Neurologic/Psych: reheater II-XII nml as tested, alert, normal mood/affect, oriented x 3, + motor weakness (L LE weakness. Otherwise normal MARIELA in BUE and RLE ) Skin: normal color, warm/dry, no rash Diagnostics Laboratory Results Results Past 24 Hours Test 07/15/17 13:00 07/15/17 18:06 07/15/17 19:52 Range/Units White Blood Count 5.18 4.8-10.8 K/uL Red Blood Count 3.54 4.2-5.4 M/uL Hemoglobin 10.9 12.0-16.0 g/dL Hematocrit 33.1 37-47 % Mean Corpuscular Volume 93.5 80-100 fL Mean Corpuscular Hemoglobin 30.8 25-34 pg Mean Corpuscular Hemoglobin Concent 32.9 32-36 g/dl Platelet Count 227 130-400 K/uL Mean Platelet Volume 10.3 7.4-10.4 fL Neutrophils (%) (Auto) 73.4 % Lymphocytes (%) (Auto) 10.0 % Monocytes (%) (Auto) 11.2 % Eosinophils (%) (Auto) 4.6 % Basophils (%) (Auto) 0.6 % Neutrophils # (Auto) 3.80 1.4-6.5 K/uL Lymphocytes # (Auto) 0.52 1.2-3.4 K/uL Monocytes # (Auto) 0.58 0.11-0.59 K/uL Eosinophils # (Auto) 0.24 0-0.5 K/uL Basophils # (Auto) 0.03 0-0.2 K/uL RDW Standard Deviation 48.8 36.4-46.3 fL RDW Coefficient of Variation 14.2 11.5-14.5 % Immature Granulocyte % (Auto) 0.2 % Immature Granulocyte # (Auto) 0.01 0.00-0.02 K/uL Erythrocyte Sedimentation Rate 43 0-21 mm/hr Prothrombin Time 21.4 9.0-12.0 SECONDS Prothromb Time International Ratio 1.9 0.9-1.1 Sodium Level 137 136-145 mmol/L Potassium Level 4.9 3.5-5.1 mmol/L Chloride Level 104 98-107 mmol/L Carbon Dioxide Level 25 21-32 mmol/L Anion Gap 8.0 3-11 mmol/L Blood Urea Nitrogen 28 7-18 mg/dl Creatinine 1.56 0.60-1.20 mg/dl Est Creatinine Clear Calc Drug Dose 28.7 ml/min Estimated GFR () 37.0 Estimated GFR (Non- 31.9 BUN/Creatinine Ratio 18.1 10-20 Random Glucose 192 70-99 mg/dl Calcium Level 9.0 8.5-10.1 mg/dl Total Bilirubin 0.2 0.2-1 mg/dl Aspartate Amino Transf (AST/SGOT) 21 15-37 U/L Alanine Aminotransferase (ALT/SGPT) 33 12-78 U/L Alkaline Phosphatase 68 45-117 U/L Total Creatine Kinase 62 26-192 U/L Total Protein 7.1 6.4-8.2 gm/dl Albumin 3.2 3.4-5.0 gm/dl Globulin 3.9 2.5-4.0 gm/dl Albumin/Globulin Ratio 0.8 0.9-2 Bedside Glucose 147 153 70-90 mg/dl Diagnostic Radiology Lumbar spine MRI: IMPRESSION: 1. Multilevel lumbosacral spondylosis as above with acquired compromise of the central canal that is greatest at L4-L5. See discussion for detailed [id number] analysis. 2. No destructive bony lesion is seen. Impression Assessment and Plan This is a 77yo F with a PMH of MS, DM II, HTN, HLD, CAD (s/p stents x 3 in 2008) , hypothyroidism, h/o DVT (on coumadin) who presents with worsening lower back pain over the past few weeks. Lower back pain, L hip pain: -Multifactorial, likely MS exacerbation as well as chronic degenerative changes -L LE weakness similar to previous MS flares -Initiated high dose solu-medrol -Neuro consulted for continued management -Cont home dose Gilenya -Lumbar spine MRI with multilevel lumbosacral spondylosis -Morphine 2mg Q 4 with bowel regimen -Pain management consulted -Recommend: -Continue home dose fentanyl patch, gabapentin, tramadol -Add Nucynta 50mg Q4 PRN DM II: -Hgb a1c of 8.1 in 2013 -Recheck hgb a1c -Hold home agents -Glycemic consult placed in setting of high dose steroids -BSG checks AC HS CAD (s/p stents x 3): -Asymptomatic -Continue baby aspirin, statin Hypothyroidism: -Continue home dose levothyroxine H/o DVT: -On chronic anticoagulation with coumadin -Continue home dose HTN: -Normotensive -Continue home lisinopril, nifedipine DVT Ppx: on coumadin Code status: FULL PCP: Celi Dispo: Plan to return home once medically stable Patient seen in collaboration with Dr. Zaman. Please see addendum. ADDENDUM: This is a 77 year old female with a PMH of MS, DM2, CAD presents with worsening lower back pain. Likely MS flare as per patient, she is getting weaker. Lumbar spondylosis on lumbar MRI. Plan: consult neurology for possible MS flare-up. consult pain management for lower back pain; may need Nucynta Level of Care Med/Surg Advanced Directives Existing Living Will: Yes Existing Power of County Director Welfare: Yes Resuscitation Status FULL RESUSCITATION VTE Prophylaxis VTE Risk Assessment Done? Y/N: Yes Risk Level: Moderate Given or contraindicated: Warfarin (Coumadin)
[2017-07-16] MEDS ORDERED: MAGNESIUM HYDROXIDE SUSP 30 ML UDC PO PRN (00:45)
[2017-07-16] MEDS ORDERED: POLYETHYLENE (MIRALAX) 17 GM PACK PO PRN (00:45)
[2017-07-16] MEDS ORDERED: INSULIN ASPART 100 UNITS/ML 3 ML PEN SC ONE (02:00)
[2017-07-16] MEDS: MoRPHine SULFATE 2 MG/ML CARP IV PRN ×3 (06:24→12:46)
[2017-07-16] MEDS: LEVOTHYROXINE 75 MCG TAB PO SCH (06:25)
[2017-07-16 07:53] LABS: HEMATOCRIT 34.3 % (37-47); MEAN CORPUSCULAR HEMOGLOBIN 30.6 pg (25-34); MEAN CORPUSCULAR HGB CONC 32.9 g/dl (32-36); MEAN PLATELET VOLUME 10.2 fL (7.4-10.4); PLATELET COUNT 195 K/uL (130-400); RED BLOOD COUNT 3.69 M/uL (4.2-5.4); WHITE BLOOD COUNT 2.23 K/uL (4.8-10.8)
[2017-07-16] MEDS ORDERED: NON-FORMULARY MEDICATION (Biotin (Biotin 5000) 1 CAP) PO SCH (08:00)
[2017-07-16] MEDS ORDERED: GABAPENTIN 800 MG TAB PO SCH (08:00)
[2017-07-16] MEDS: CHECK FENTANYL PATCH PLACEMENT SCH ×2 (08:00→15:43)
[2017-07-16] MEDS ORDERED: NIFEdipine 30 MG CR TAB PO SCH (08:00)
[2017-07-16] MEDS ORDERED: LISINOPRIL 20 MG TAB PO SCH (08:00)
[2017-07-16] MEDS: ONDANSETRON INJ 2 MG/ML 2 ML VIAL IV PRN ×2 (08:02→15:42)
[2017-07-16 08:05] LABS: INR 1.9 (0.9-1.1); PROTHROMBIN TIME (PATIENT) 20.6 SECONDS (9.0-12.0)
[2017-07-16 08:19] LABS: BUN/CREATININE RATIO 20.2 (10-20); CALCIUM 9.7 mg/dl (8.5-10.1); CREATININE 1.74 mg/dl (0.60-1.20); POTASSIUM 5.6 mmol/L (3.5-5.1)
[2017-07-16 08:36] VITALS: BP 170/81; PULSE 100; TEMP 36.4; O2SAT 95
[2017-07-16 08:38] LABS: ESTIMATED AVERAGE GLUCOSE 212 mg/dl; HA1C FLAG Normal (Normal)
[2017-07-16] MEDS ORDERED: FENTANYL 25 MCG/HR TDSY TD SCH (09:00)
[2017-07-16] MEDS: ASPIRIN 81 MG ECTAB PO SCH (09:20)
[2017-07-16] MEDS: RANITIDINE HCL 150 MG TAB PO SCH ×2 (09:20→20:58)
[2017-07-16] MEDS: CYANOCOBALAMIN 500 MCG TAB (VIT B-12) PO SCH (09:20)
[2017-07-16] MEDS: FoLIC ACID TAB 400 MCG TAB PO SCH (09:21)
[2017-07-16] MEDS: ROPINIROLE HCL 1 MG TAB PO SCH ×2 (09:21→20:58)
[2017-07-16] MEDS: PANTOprazole SOD 40 MG TAB PO SCH (09:21)
[2017-07-16] MEDS: ACETAMINOPHEN 325 MG TAB PO PRN (09:28)
[2017-07-16] MEDS: INSULIN ASPART 100 UNITS/ML 3 ML PEN SC SCH ×4 (09:36→21:00)
[2017-07-16] MEDS: INSULIN GLARGINE SOLOSTAR 100 UNITS/ML 3 ML PEN SC SCH ×2 (09:37→21:00)
--- NOTE | 2017-07-16 09:39 | Pharmacy Progress Note ---
Glycemic Control Progress Note Date of Service Jul 16, 2017. Scope Glycemic Pharmacist consulted for glycemic control to write orders per [facility] inpatient glycemic control protocol. Objective Accuchecks BSG (last 24hrs): Test 07/15/17 13:00 07/15/17 18:06 07/15/17 19:52 07/16/17 01:55 Random Glucose 192 mg/dl (70-99) Bedside Glucose 147 mg/dl (70-90) 153 mg/dl (70-90) 219 mg/dl (70-90) Test 07/16/17 07:27 Random Glucose 264 mg/dl (70-99) HbA1c: Test 07/16/17 07:27 Hemoglobin A1c 9.0 % (4.5-5.6) H Recent Pertinent Medications The patient is currently receiving: * Basal insulin: Lantus 20 units x 1 last night * Correctional Insulin: Novolog Correction per scale ACHS Goal Range: Low 140 mg/dL - High 180 mg/dL Correction Factor: 20 mg/dL/unit * Prandial insulin: Per carb ratio of 1 unit per 8 grams CHO consumed Outpatient Anti-Diabetic Meds Oral Agents Assessment & Plan ASSESSMENT: * 77 yo T2DM female admitted overnight with back pain - likely MS flare * Pt on orals only as outpatient and A1c this AM indicative of suboptimal outpatient control; however, given comorbidities her goal could be 8-8.5% * Pt receiving SQ basal bolus insulin regimen for hyperglycemia secondary to baseline DM (outpatient regimen on hold), stress from pain/MS flare, and high dose IV solumedrol 1 g IV administered last night * Patient Fasting BSG now 264 mg/dL, which is expected * Pharmacist overnight initiated basal/bolus regimen, wt based/stress of 3, which is appropriate given high dose IV steroids * At this point I will tighten/loosen regimen based on continuation? of IV steroids and BSG trend PLAN FOR INPATIENT GLYCEMIC CONTROL: * Oral Agents * Continue to hold outpatient oral diabetes medications. * Basal insulin * Lantus 20 units SQ BID * Reduce dose to 10-15 units once BSGs start to trend within goal range * Bolus insulin * NovoLog per scale ACHS or Q6hrs while NPO * Goal Range: Low 110 mg/dL - High 140 mg/dL * Correction Factor: 15 mg/dL/unit * Nutritional / Prandial insulin per carb ratio of 1 unit per 6 grams CHO consumed * Please note that the plan above was derived based on current level of insulin resistance and hospital stress. These recommendations are appropriate for inpatient admission only. Plan of care upon discharge will need to be reassessed to avoid potential outpatient hypo/hyperglycemia. Thank you.
--- NOTE | 2017-07-16 11:14 | Neurology Consultation ---
Neurology Consultation Date of Consultation: Jul 16, 2017. Attending Physician: Stevo Kumari MD Primary Care Physician: Chris Reis PA-C Reason for Consultation: "MS exacerbation" History of Present Illness Source: patient, clinic records, hospital records The patient is a 77-year-old female who was diagnosed with multiple sclerosis diagnosed over 20 years ago while she was living in [place]. She has been following with Dr. Pierce for greater than 10 years and has been prescribed a variety of disease modifying medications including Copaxone, and most recently Gilenya which he has been taking for the past few years. Her demyelinating disease has caused progressive difficulty with balance, coordination, and walking. 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 She follows regularly with optometry at [facility]. This patient also has a history of benign essential tremor which apparently runs in her family for which she is prescribed propranolol. Her history is also notable for chronic low back pain/radiculopathy with associated neurogenic claudication on the basis of multilevel degenerative spondylosis and stenosis. This patient presented to the emergency department yesterday with a chief complaint of left hip pain which has been bothersome for the past few weeks. The pain radiates from the left hip down the lateral aspect of the leg and into the groin. She complains of associated low back pain. The patient reports that typically, her low back pain is worse to the right, with radiation into the right leg. She also indicates that standing and bending exacerbate her left hip pain. She has been finding it difficult to get comfortable and has been finding it increasingly difficult to walk due to her pain. I reviewed the images and radiologist's interpretation of the recently completed MRI of the lumbar spine. The study reveals multilevel spondylosis, most severe at L4-5 associated central canal stenosis. There is bilateral neural compromise at L4-5 end L5-S1. There is tethering of the cauda equina at L4-5 subsequent to spondylosis at this level. Past medical history also notable for diabetes mellitus, coronary artery disease, DVT currently treated with anticoagulation, ischemic optic neuropathies. Past Medical/Surgical History Medical Problems: (1) Lumbar radiculopathy, chronic Status: Acute Family History Family history notable for diabetes mellitus and hypertension Social History Smoking Status: Never smoker Drug Use: none Marital Status: Housing Status: lives with significant other Occupation Status: retired Allergies Coded Allergies: [place] Blue FCF (Verified Allergy, Unknown, UNKNOWN, 06/19/17) Dimethyl Fumarate (Verified Allergy, Unknown, UNKNOWN, 06/19/17) Current Inpatient Medications Current Inpatient Medications Medications (Trade) Dose Ordered Sig/Love Route Start Time Stop Time Status Last Admin Dose Admin Miscellaneous (Iv Fluids Completed) 1 ea PRN PRN N/A 07/15/17 16:30 07/15/18 16:29 Acetaminophen (Tylenol Tab) 650 mg Q4H PRN PO 07/15/17 16:30 08/14/17 16:29 07/16/17 09:28 650 MG Ondansetron HCl (Zofran Inj) 4 mg Q6H PRN IV 07/15/17 16:30 08/14/17 16:29 07/16/17 08:02 4 MG Morphine Sulfate (MoRPHine SULFATE INJ) 2 mg Q4 PRN IV 07/15/17 16:30 07/29/17 16:29 07/16/17 06:24 2 MG Miscellaneous Information (Consult Glycemic Management Pharmacy) 1 ea UD PRN N/A 07/15/17 18:03 08/14/17 18:02 Insulin Glargine (Lantus Solostar Pen) Q12 SC 07/16/17 09:00 08/15/17 08:59 07/16/17 09:37 20 UNITS Insulin Aspart (novoLOG ASPART) SLIDING SCALE If C... ACHS SC 07/15/17 21:00 08/14/17 20:59 07/16/17 09:36 7 UNITS Glucose (Glucose 40% Gel) 15-30 GRAMS 15 GRAMS... UD PRN PO 07/15/17 17:00 08/14/17 16:59 Glucose (Glucose Chew Tab) 4-8 Tablets 4 Tabl... UD PRN PO 07/15/17 17:00 08/14/17 16:59 Dextrose (Dextrose 50% 50ML Syringe) 25-50ML OF 50% DW IV FOR... UD PRN IV 07/15/17 17:00 08/14/17 16:59 Glucagon (Glucagon Inj) 1 mg UD PRN SQ 07/15/17 17:00 08/14/17 16:59 Aspirin (Ecotrin Tab) 81 mg DAILY PO 07/16/17 08:00 08/15/17 07:59 07/16/17 09:20 81 MG Fentanyl (Duragesic Patch) 25 mcg Q3D@0900 TD 07/16/17 09:00 07/30/17 08:59 07/16/17 09:28 25 MCG Folic Acid (Folvite Tab) 400 mcg DAILY PO 07/16/17 08:00 08/15/17 07:59 07/16/17 09:21 400 MCG Gabapentin (Neurontin Tab) 800 mg BID PO 07/16/17 08:00 08/15/17 07:59 07/16/17 09:20 800 MG Levothyroxine Sodium (Synthroid Tab) 75 mcg DAILYBB PO 07/16/17 06:30 08/15/17 06:29 07/16/17 06:25 75 MCG Lisinopril (Zestril Tab) 20 mg DAILY PO 07/16/17 08:00 08/15/17 07:59 07/16/17 09:21 20 MG Nifedipine (Procardia Xl Tab) 60 mg DAILY PO 07/16/17 08:00 08/15/17 07:59 07/16/17 09:21 60 MG Pantoprazole Sodium (Protonix Tab) 40 mg DAILY PO 07/16/17 08:00 08/15/17 07:59 07/16/17 09:21 40 MG Ranitidine HCl (zANTac TAB) 150 mg BID PO 07/16/17 08:00 08/15/17 07:59 07/16/17 09:20 150 MG Ropinirole HCl (Requip Tab) 1 mg BID PO 07/16/17 08:00 08/15/17 07:59 07/16/17 09:21 1 MG Simvastatin (Zocor Tab) 20 mg HS PO 07/16/17 22:00 08/15/17 21:59 Tramadol HCl (Ultram Tab) 50 mg BID PRN PO 07/15/17 23:00 08/14/17 22:59 Warfarin Sodium (Coumadin Tab) 3 mg DAILY@1600 PO 07/16/17 16:00 08/15/17 15:59 Cyanocobalamin (Vitamin B-12 Tab) 1,000 mcg DAILY PO 07/16/17 08:00 08/15/17 07:59 07/16/17 09:20 1,000 MCG Miscellaneous Information (Order Awaiting Action) 1 ea QS N/A 07/15/17 23:30 08/14/17 23:29 Tapentadol (Nucynta Tab) 50 mg Q4H PRN PO 07/16/17 08:00 08/15/17 07:59 Miscellaneous (Fentanyl Patch Remove & Waste) 1 ea Q3D N/A 07/19/17 09:00 08/18/17 08:59 Miscellaneous Information (Check Fentanyl Patch Placement) 1 ea QS N/A 07/16/17 00:00 08/15/17 00:00 Magnesium Hydroxide (Milk Of Magnesia Susp) 30 ml Q12H PRN PO 07/16/17 00:45 08/15/17 00:44 Polyethylene (Miralax Powder Packet) 17 gm DAILY PRN PO 07/16/17 00:45 08/15/17 00:44 Review of Systems Constitutional: Positive for fatigue, no fever or chills Eyes: Bilateral vision loss, severe, able to make out light and shapes but no details ENT: No hearing loss or vertigo Cardiovascular: No chest pain or palpitations Respiratory: No coughing wheezing or shortness of breath Musculoskeletal: As per history of present illness Neurological: As per history of present illness A full 10 point review of systems was obtained in this patient with pertinent positives and negatives described in history of present illness and listed above. All remaining systems reviewed and are negative. Physical Exam Vital Signs (Past 24 Hrs): Date Time Temp Pulse Resp B/P (MAP) Pulse Ox O2 Delivery O2 Flow Rate FiO2 07/16/17 08:36 36.4 100 20 170/81 (110) 95 07/16/17 00:13 36.6 56 18 149/79 (102) 96 1.0 07/16/17 00:01 96 Nasal Cannula 1.0 07/15/17 19:32 94 Nasal Cannula 1.0 07/15/17 18:35 36.6 61 18 122/74 (90) 94 Nasal Cannula 1.0 07/15/17 17:08 36.5 60 18 120/51 98 Nasal Cannula 2.0 07/15/17 17:05 98 Nasal Cannula 2.0 07/15/17 16:00 60 20 97 Nasal Cannula 2.0 07/15/17 14:32 59 16 100/51 98 Nasal Cannula 2.0 07/15/17 13:22 Nasal Cannula 2.0 07/15/17 13:22 92 Room Air 07/15/17 12:56 60 18 98 Room Air 07/15/17 12:10 36.4 64 22 156/107 96 Room Air The patient is a well-developed, well-nourished, elderly female. She appears mildly uncomfortable. She was examined while lying in bed. The patient is alert and oriented to person place and time. Recent and remote memory intact. Attention and concentration normal. Patient exhibits a normal spontaneous speech pattern as well as an age-appropriate fund of knowledge and normal vocabulary. Profound vision loss throughout the visual tamayo with confrontation testing noted. Visual acuity severely impaired, unable to read or count fingers. Patient is able to perceive light with both eyes. Pupils equal round reactive to light and accommodation. Eye movements normal. No nystagmus. Facial sensation intact and symmetric. Normal facial symmetry and strength. No facial droop. Hearing intact to finger rub bilaterally. Palate elevates to midline. Shoulder shrug strength intact bilaterally. Tongue protrudes to midline. There is diminished sensation in both lower limbs corresponding to an L5 dermatome bilaterally. Sensory deficit affects all modalities including light touch, temperature, and vibration. Proprioception seems to be preserved. Deep tendon reflexes are diffusely diminished. There is no dysdiadochokinesia. Patient exhibits mild dysmetria with finger to nose bilaterally. The optic nerves and posterior segments cannot be adequately visualize with direct ophthalmoscopy due to relatively small pupil size. Carotid pulses normal bilaterally, no bruits to auscultation. Gait and station could not be tested pain and safety concerns. Muscle strength normal for the arms and legs bilaterally although there may be subtle weakness of the left lower extremity due to pain. There is no foot drop although there is mild weakness of left great toe dorsiflexion. Muscle tone normal throughout. No atrophy. Patient exhibits a bilateral upper extremity postural and action tremor as well as an associated head tremor. Laboratory Results Past 24 Hours: 07/16/17 07:27 07/16/17 07:27 Test 07/15/17 13:00 07/16/17 01:55 07/16/17 07:27 Immature Granulocyte % (Auto) 0.2 % White Blood Count 5.18 K/uL (4.8-10.8) Red Blood Count 3.54 M/uL (4.2-5.4) 3.69 M/uL (4.2-5.4) Hemoglobin 10.9 g/dL (12.0-16.0) Hematocrit 33.1 % (37-47) Mean Corpuscular Volume 93.5 fL (80-100) 93.0 fL (80-100) Mean Corpuscular Hemoglobin 30.8 pg (25-34) 30.6 pg (25-34) Mean Corpuscular Hemoglobin Concent 32.9 g/dl (32-36) 32.9 g/dl (32-36) Platelet Count 227 K/uL (130-400) Mean Platelet Volume 10.3 fL (7.4-10.4) 10.2 fL (7.4-10.4) Neutrophils (%) (Auto) 73.4 % Lymphocytes (%) (Auto) 10.0 % Monocytes (%) (Auto) 11.2 % Eosinophils (%) (Auto) 4.6 % Basophils (%) (Auto) 0.6 % Neutrophils # (Auto) 3.80 K/uL (1.4-6.5) Lymphocytes # (Auto) 0.52 K/uL (1.2-3.4) Monocytes # (Auto) 0.58 K/uL (0.11-0.59) Eosinophils # (Auto) 0.24 K/uL (0-0.5) Basophils # (Auto) 0.03 K/uL (0-0.2) Immature Granulocyte # (Auto) 0.01 K/uL (0.00-0.02) Erythrocyte Sedimentation Rate 43 mm/hr (0-21) Total Bilirubin 0.2 mg/dl (0.2-1) Aspartate Amino Transf (AST/SGOT) 21 U/L (15-37) Alanine Aminotransferase (ALT/SGPT) 33 U/L (12-78) Alkaline Phosphatase 68 U/L (45-117) Total Creatine Kinase 62 U/L (26-192) Total Protein 7.1 gm/dl (6.4-8.2) Albumin 3.2 gm/dl (3.4-5.0) Globulin 3.9 gm/dl (2.5-4.0) Albumin/Globulin Ratio 0.8 (0.9-2) Bedside Glucose 219 mg/dl (70-90) RDW Standard Deviation 47.6 fL (36.4-46.3) RDW Coefficient of Variation 14.0 % (11.5-14.5) Prothrombin Time 20.6 SECONDS (9.0-12.0) Prothromb Time International Ratio 1.9 (0.9-1.1) Anion Gap 8.0 mmol/L (3-11) Est Creatinine Clear Calc Drug Dose 25.7 ml/min Estimated GFR () 32.4 Estimated GFR (Non- 28.0 BUN/Creatinine Ratio 20.2 (10-20) Estimated Average Glucose 212 mg/dl Hemoglobin A1c 9.0 % (4.5-5.6) Calcium Level 9.7 mg/dl (8.5-10.1) Imaging This patient's last brain MRI was completed in November 2015 and revealed multiple foci of increased T2/FLAIR signal throughout the supratentorial brain parenchyma consistent with chronic foci of demyelination versus chronic cerebrovascular disease. These findings were considered unchanged compared with the previous MRI done in September 2014. Impression This is a 77-year-old female who was diagnosed with multiple sclerosis over 20 years ago. She has been taking Gilenya for several years and her MS has been stable. The medical record suggests that her vision loss is due to ischemic optic neuropathies. She has a chronic, stable, essential tremor as well as chronic low back pain/radiculopathy on the basis of degenerative lumbar spinal stenosis. This patient's presenting complaint of left hip pain radiating into the groin and down the left leg, worse with standing is most suggestive of lumbar radiculopathy rather than her multiple sclerosis. The recently completed lumbar spine MRI does suggest bilateral nerve root compromise at L4-5 and L5-S1 with associated tethering of the cauda equine at L4-5. I do find a bilateral L5 dermatomal sensory loss on examination as well as mild weakness of left great toe dorsiflexion. Plan Continue Gilenya for multiple sclerosis Continue to monitor white blood cell count. If this patient's leukopenia persists over the next 2-3 weeks, her Gilenya may need to be held. Change gabapentin from 800 mg twice a day to 600 mg 3 times a day Would check an up-to-date MRI of the brain, cervical spine, and thoracic spine to assess the status of her multiple sclerosis Duragesic and Nucynta are probably appropriate for her chronic low back pain/ radiculopathy. Pain management can probably make suggestions regarding adjusting the dosages of these medications if necessary. Given that this patient is prescribed warfarin, however, I'm uncertain if an epidural steroid injection is feasible at this time. Consultation with PT/OT
[2017-07-16] MEDS ORDERED: HydrALAZINE HCL 20 MG/ML VIAL IV. PRN (14:00)
--- NOTE | 2017-07-16 14:12 | Progress Note ---
Internal Med Progress Note Date of Service: Jul 16, 2017. Provider Documentation: SUBJECTIVE: Seen and examined at bedside States having persistent lower back pain radiating down left leg Numbness in feet resolved Also reports nausea Has left sided weakness Denies chest pain, SOB, dizziness Family at bedside OBJECTIVE: Vital Signs-as noted below Physical Exam: General Appearance:Moderately built and nourished, no apparent distress Head: normocephalic, Atraumatic Eyes: normal inspection, EOMI, PERRL Neck: supple, Trachea midline Respiratory/Chest: Normal breath sounds, CTA Cardiovascular: S1, S2, No murmur Abdomen/GI:Soft, Non tender, Bowel sounds present Back: Paraspinal tenderness L region Extremities/Musculoskelatal:normal inspection, no edema Neurologic/Psych:AAOX3, LLE weakness Skin: normal color, warm Lab data as noted below. ASSESSMENT & PLAN: Patient is a 77yr female with a PMH of MS, DM II, HTN, HLD, CAD (s/p stents x 3 in 2008), hypothyroidism, h/o DVT (on coumadin) who presents with worsening lower back pain over the past few weeks. Lower back pain, L hip pain: Likely multifactorial, Lumbar radiculopathy, Possible MS exacerbation as well as chronic degenerative changes Patient states L LE weakness similar to previous MS flares Received high dose solu-medrol on presentation Appreciate Neurology Input Continue home dose Gilenya Lumbar spine MRI with multilevel lumbosacral spondylosis Plan to get MRI Brain, Cervical and Thoracic Spine when renal function better Continue Morphine, Fentanyl patch, gabapentin, tramadol and Nucynta 50mg Q4 PRN for pain control Monitor WBC while on Gilenya. Plan to hold Gilenya if leukopenia persists in next 2-3 weeks period. Appreciate Pain management Input Neurontin dose increased to 600mg TID MARY/Hyperkalemia: Hold Lisinopril Gentle IV fluids Monitor renal function Avoid nephrotoxic agents as able DM II: Hgb a1c of 8.1 in 2012 hgb a1c:9.0, likley from recent prednisone use Hold home agents BSG checks AC HS ISS, lantus CAD (s/p stents x 3): Asymptomatic Continue aspirin, statin Hypothyroidism: Continue levothyroxine H/o DVT: On chronic anticoagulation with coumadin Continue coumadin Monitor INR HTN: Stable Hold Lisinopril secondary to MARY Nifedipine dose increased to 90mg daily DVT Ppx: on coumadin Code status: FULL PCP: Celi Dispo: Plan to return home once medically stable Vital Signs: Date Time Temp Pulse Resp B/P (MAP) Pulse Ox O2 Delivery O2 Flow Rate FiO2 07/16/17 08:36 36.4 100 20 170/81 (110) 95 07/16/17 08:30 Room Air 07/16/17 00:13 36.6 56 18 149/79 (102) 96 1.0 07/16/17 00:01 96 Nasal Cannula 1.0 07/15/17 19:32 94 Nasal Cannula 1.0 07/15/17 18:35 36.6 61 18 122/74 (90) 94 Nasal Cannula 1.0 07/15/17 17:08 36.5 60 18 120/51 98 Nasal Cannula 2.0 07/15/17 17:05 98 Nasal Cannula 2.0 07/15/17 16:00 60 20 97 Nasal Cannula 2.0 07/15/17 14:32 59 16 100/51 98 Nasal Cannula 2.0 Lab Results: Results Past 24 Hours Test 07/15/17 18:06 07/15/17 19:52 07/16/17 01:55 07/16/17 07:27 Range/Units Bedside Glucose 147 153 219 70-90 mg/dl White Blood Count 2.23 4.8-10.8 K/uL Red Blood Count 3.69 4.2-5.4 M/uL Hemoglobin 11.3 12.0-16.0 g/dL Hematocrit 34.3 37-47 % Mean Corpuscular Volume 93.0 80-100 fL Mean Corpuscular Hemoglobin 30.6 25-34 pg Mean Corpuscular Hemoglobin Concent 32.9 32-36 g/dl RDW Standard Deviation 47.6 36.4-46.3 fL RDW Coefficient of Variation 14.0 11.5-14.5 % Platelet Count 195 130-400 K/uL Mean Platelet Volume 10.2 7.4-10.4 fL Prothrombin Time 20.6 9.0-12.0 SECONDS Prothromb Time International Ratio 1.9 0.9-1.1 Sodium Level 136 136-145 mmol/L Potassium Level 5.6 3.5-5.1 mmol/L Chloride Level 102 98-107 mmol/L Carbon Dioxide Level 26 21-32 mmol/L Anion Gap 8.0 3-11 mmol/L Blood Urea Nitrogen 35 7-18 mg/dl Creatinine 1.74 0.60-1.20 mg/dl Est Creatinine Clear Calc Drug Dose 25.7 ml/min Estimated GFR () 32.4 Estimated GFR (Non- 28.0 BUN/Creatinine Ratio 20.2 10-20 Random Glucose 264 70-99 mg/dl Estimated Average Glucose 212 mg/dl Hemoglobin A1c 9.0 4.5-5.6 % Calcium Level 9.7 8.5-10.1 mg/dl
[2017-07-16] MEDS: GABAPENTIN 600 MG TAB PO SCH ×2 (14:20→20:58)
[2017-07-16] MEDS ORDERED: SODIUM CHLORIDE 0.9% 1000ML 1,000 ML IV ONE (14:30)
[2017-07-16 15:23] VITALS: BP 134/74; PULSE 60; TEMP 36.7; O2SAT 93
[2017-07-16] MEDS: TAPENTADOL HCL 50 MG TAB PO PRN (15:42)
[2017-07-16] MEDS: WARFARIN SOD 3 MG TAB PO SCH (15:43)
[2017-07-16] MEDS: SIMVASTATIN 20 MG TAB PO SCH (20:58)
[2017-07-16 23:35] VITALS: BP 131/60; PULSE 74; TEMP 36.9; O2SAT 94
[2017-07-17] MEDS: CHECK FENTANYL PATCH PLACEMENT SCH ×3 (00:03→15:59)
[2017-07-17] MEDS: MoRPHine SULFATE 2 MG/ML CARP IV PRN ×3 (02:28→15:27)
[2017-07-17] MEDS: ONDANSETRON INJ 2 MG/ML 2 ML VIAL IV PRN ×2 (02:30→14:19)
[2017-07-17] MEDS: INSULIN ASPART 100 UNITS/ML 3 ML PEN SC SCH ×6 (03:50→21:02)
[2017-07-17] MEDS: LEVOTHYROXINE 75 MCG TAB PO SCH (06:09)
[2017-07-17 06:59] VITALS: BP 161/68; PULSE 58; TEMP 36.7; O2SAT 93
[2017-07-17 07:01] LABS: COMPLETE YES; HEMATOCRIT 31.3 % (37-47); IG% 0.3 %; LYMPH % 4.9 %; LYMPH ABS # 0.38 K/uL (1.2-3.4); MEAN CELL VOLUME 93.2 fL (80-100); MEAN CORPUSCULAR HEMOGLOBIN 30.7 pg (25-34); MEAN CORPUSCULAR HGB CONC 32.9 g/dl (32-36); MEAN PLATELET VOLUME 10.1 fL (7.4-10.4); MONO % 9.2 %; NEUT % 85.6 %; PLATELET COUNT 206 K/uL (130-400); RED BLOOD COUNT 3.36 M/uL (4.2-5.4); WHITE BLOOD COUNT 7.83 K/uL (4.8-10.8)
[2017-07-17 07:29] LABS: INR 1.5 (0.9-1.1); PROTHROMBIN TIME (PATIENT) 16.8 SECONDS (9.0-12.0)
[2017-07-17 07:31] LABS: BUN/CREATININE RATIO 23.4 (10-20); CALCIUM 9.5 mg/dl (8.5-10.1); CREATININE 1.45 mg/dl (0.60-1.20); MAGNESIUM 2.2 mg/dl (1.8-2.4)
[2017-07-17] MEDS: RANITIDINE HCL 150 MG TAB PO SCH ×2 (08:29→21:04)
[2017-07-17] MEDS: PANTOprazole SOD 40 MG TAB PO SCH (08:29)
[2017-07-17] MEDS: ROPINIROLE HCL 1 MG TAB PO SCH ×2 (08:30→21:04)
[2017-07-17] MEDS: FoLIC ACID TAB 400 MCG TAB PO SCH (08:30)
[2017-07-17] MEDS: ASPIRIN 81 MG ECTAB PO SCH (08:30)
[2017-07-17] MEDS: CYANOCOBALAMIN 500 MCG TAB (VIT B-12) PO SCH (08:30)
[2017-07-17] MEDS: FINGOLIMOD HCL 0.5 MG CAP PO SCH (08:31)
[2017-07-17] MEDS: NIFEdipine 30 MG CR TAB PO SCH (08:31)
[2017-07-17] MEDS: GABAPENTIN 600 MG TAB PO SCH ×3 (08:31→21:04)
[2017-07-17] MEDS: INSULIN GLARGINE SOLOSTAR 100 UNITS/ML 3 ML PEN SC SCH ×2 (08:39→21:02)
[2017-07-17] MEDS ORDERED: DIAZEPAM 5MG TAB ONE (09:49)
[2017-07-17] MEDS ORDERED: DIAZEPAM 5MG TAB PO ONE (10:00)
--- NOTE | 2017-07-17 10:24 | Neurology Progress Notes ---
Neurology Progress Note Date of Service Jul 17, 2017. Subjective Follow-up for multiple sclerosis and lumbar radiculopathy The patient continues to complain of low back and left hip pain with radiation into the left groin and down the left leg, worse with standing. Walking to the bathroom this morning significantly aggravated her symptoms. MRI of the brain, cervical spine, and thoracic spine has been ordered. This testing should be completed today. I increased this patient's dose to gabapentin yesterday, switching from 2 times per day to 3 times per day dosing. The patient and her family are requesting an increase in her Duragesic dose. She is currently taking 25 g every 72 hours. Pain management was consulted although has not seen the patient yet. Objective Date Time Temp Pulse Resp B/P (MAP) Pulse Ox O2 Delivery O2 Flow Rate FiO2 07/17/17 06:59 36.7 58 18 161/68 (99) 93 Room Air 07/16/17 23:58 Room Air 07/16/17 23:35 36.9 74 20 131/60 (83) 94 Room Air 07/16/17 16:00 Room Air 07/16/17 15:23 36.7 60 20 134/74 (94) 93 Room Air Last 24 Hours Test 07/16/17 11:20 07/16/17 16:22 07/16/17 19:59 07/17/17 00:01 Bedside Glucose 300 mg/dl 228 mg/dl 203 mg/dl 110 mg/dl Test 07/17/17 03:48 07/17/17 06:40 07/17/17 07:08 Bedside Glucose 127 mg/dl 110 mg/dl White Blood Count 7.83 K/uL Red Blood Count 3.36 M/uL Hemoglobin 10.3 g/dL Hematocrit 31.3 % Mean Corpuscular Volume 93.2 fL Mean Corpuscular Hemoglobin 30.7 pg Mean Corpuscular Hemoglobin Concent 32.9 g/dl Platelet Count 206 K/uL Mean Platelet Volume 10.1 fL Neutrophils (%) (Auto) 85.6 % Lymphocytes (%) (Auto) 4.9 % Monocytes (%) (Auto) 9.2 % Eosinophils (%) (Auto) 0.0 % Basophils (%) (Auto) 0.0 % Neutrophils # (Auto) 6.71 K/uL Lymphocytes # (Auto) 0.38 K/uL Monocytes # (Auto) 0.72 K/uL Eosinophils # (Auto) 0.00 K/uL Basophils # (Auto) 0.00 K/uL RDW Standard Deviation 48.1 fL RDW Coefficient of Variation 14.2 % Immature Granulocyte % (Auto) 0.3 % Immature Granulocyte # (Auto) 0.02 K/uL Prothrombin Time 16.8 SECONDS Prothromb Time International Ratio 1.5 Sodium Level 140 mmol/L Potassium Level 5.0 mmol/L Chloride Level 107 mmol/L Carbon Dioxide Level 29 mmol/L Anion Gap 4.0 mmol/L Blood Urea Nitrogen 34 mg/dl Creatinine 1.45 mg/dl Est Creatinine Clear Calc Drug Dose 30.9 ml/min Estimated GFR () 40.4 Estimated GFR (Non- 34.9 BUN/Creatinine Ratio 23.4 Random Glucose 122 mg/dl Calcium Level 9.5 mg/dl Magnesium Level 2.2 mg/dl Exam: The patient is alert and fully oriented. She is pleasant and cooperative and in no acute distress. She exhibits normal attention and concentration as well as a normal fluent speech pattern. Her family is at bedside this morning. Current Inpatient Medications Medications (Trade) Dose Ordered Sig/Love Route Start Time Stop Time Status Last Admin Dose Admin Miscellaneous (Iv Fluids Completed) 1 ea PRN PRN N/A 07/15/17 16:30 07/15/18 16:29 07/17/17 02:40 1 EA Acetaminophen (Tylenol Tab) 650 mg Q4H PRN PO 07/15/17 16:30 08/14/17 16:29 07/16/17 09:28 650 MG Ondansetron HCl (Zofran Inj) 4 mg Q6H PRN IV 07/15/17 16:30 08/14/17 16:29 07/17/17 02:30 4 MG Morphine Sulfate (MoRPHine SULFATE INJ) 2 mg Q4 PRN IV 07/15/17 16:30 07/29/17 16:29 07/17/17 09:34 2 MG Miscellaneous Information (Consult Glycemic Management Pharmacy) 1 ea UD PRN N/A 07/15/17 18:03 08/14/17 18:02 Insulin Glargine (Lantus Solostar Pen) Q12 SC 07/16/17 09:00 08/15/17 08:59 07/17/17 08:39 10 UNITS Insulin Aspart (novoLOG ASPART) SLIDING SCALE If C... ACHS SC 07/15/17 21:00 08/14/17 20:59 07/17/17 08:38 8 UNITS Glucose (Glucose 40% Gel) 15-30 GRAMS 15 GRAMS... UD PRN PO 07/15/17 17:00 08/14/17 16:59 Glucose (Glucose Chew Tab) 4-8 Tablets 4 Tabl... UD PRN PO 07/15/17 17:00 08/14/17 16:59 Dextrose (Dextrose 50% 50ML Syringe) 25-50ML OF 50% DW IV FOR... UD PRN IV 07/15/17 17:00 08/14/17 16:59 Glucagon (Glucagon Inj) 1 mg UD PRN SQ 07/15/17 17:00 08/14/17 16:59 Aspirin (Ecotrin Tab) 81 mg DAILY PO 07/16/17 08:00 08/15/17 07:59 07/17/17 08:30 81 MG Fentanyl (Duragesic Patch) 25 mcg Q3D@0900 TD 07/16/17 09:00 07/30/17 08:59 07/16/17 09:28 25 MCG Folic Acid (Folvite Tab) 400 mcg DAILY PO 07/16/17 08:00 08/15/17 07:59 07/17/17 08:30 400 MCG Levothyroxine Sodium (Synthroid Tab) 75 mcg DAILYBB PO 07/16/17 06:30 08/15/17 06:29 07/17/17 06:09 75 MCG Lisinopril (Zestril Tab) 20 mg DAILY PO 07/16/17 08:00 08/15/17 07:59 Future Hold 07/16/17 09:21 20 MG Pantoprazole Sodium (Protonix Tab) 40 mg DAILY PO 07/16/17 08:00 08/15/17 07:59 07/17/17 08:29 40 MG Ranitidine HCl (zANTac TAB) 150 mg BID PO 07/16/17 08:00 08/15/17 07:59 07/17/17 08:29 150 MG Ropinirole HCl (Requip Tab) 1 mg BID PO 07/16/17 08:00 08/15/17 07:59 07/17/17 08:30 1 MG Simvastatin (Zocor Tab) 20 mg HS PO 07/16/17 22:00 08/15/17 21:59 07/16/17 20:58 20 MG Tramadol HCl (Ultram Tab) 50 mg BID PRN PO 07/15/17 23:00 08/14/17 22:59 Warfarin Sodium (Coumadin Tab) 3 mg DAILY@1600 PO 07/16/17 16:00 08/15/17 15:59 07/16/17 15:43 3 MG Cyanocobalamin (Vitamin B-12 Tab) 1,000 mcg DAILY PO 07/16/17 08:00 08/15/17 07:59 07/17/17 08:30 1,000 MCG Tapentadol (Nucynta Tab) 50 mg Q4H PRN PO 07/16/17 08:00 08/15/17 07:59 07/16/17 15:42 50 MG Miscellaneous (Fentanyl Patch Remove & Waste) 1 ea Q3D N/A 07/19/17 09:00 08/18/17 08:59 Miscellaneous Information (Check Fentanyl Patch Placement) 1 ea QS N/A 07/16/17 00:00 08/15/17 00:00 07/17/17 08:32 1 EA Magnesium Hydroxide (Milk Of Magnesia Susp) 30 ml Q12H PRN PO 07/16/17 00:45 08/15/17 00:44 07/17/17 02:28 30 ML Polyethylene (Miralax Powder Packet) 17 gm DAILY PRN PO 07/16/17 00:45 08/15/17 00:44 07/16/17 17:34 17 GM Gabapentin (Neurontin Tab) 600 mg TID PO 07/16/17 14:00 08/15/17 07:59 07/17/17 08:31 600 MG Nifedipine (Procardia Xl Tab) 90 mg DAILY PO 07/17/17 08:00 08/15/17 07:59 07/17/17 08:31 90 MG Hydralazine HCl (HydrALAZINE INJ) 10 mg Q6H PRN IV. 07/16/17 14:00 08/15/17 13:59 Impression Lumbar radiculopathy on the basis of multilevel intravertebral degenerative disc disease with associated spinal stenosis, most severe at L4-5. Multiple sclerosis, probably stable on Gilenya. (Improved leukopenia today.) Plan Patient will complete the requested MRI of the brain, cervical spine, and thoracic spine today to assess the status of her multiple sclerosis. She will continue with Gilenya for treatment of her MS. I did order this patient diazepam, as premedication, prior to her MRI per her request this morning. Continue with gabapentin 600 mg 3 times per day for chronic lumbar radiculopathy. Please consider increasing this patient's Duragesic to 50 g every 72 hours. ( Dr. Pierce has not been managing this patient's Duragesic or Nucynta.) Follow-up with recommendations from pain management when available. Consider obtaining a surgical consultation for her spinal stenosis. Dr. Pierce will be coming on service tomorrow morning and may handle any further problems pertaining to this patient's neurologic management at that time.
[2017-07-17] MEDS ORDERED: GADAVIST IV PRN (11:45)
--- NOTE | 2017-07-17 12:01 | DIAGNOSTIC IMAGING REPORT ---
THORACIC SPINE COMBO HISTORY: 77 years-old Female MS acute back pain which radiates into the left hip for approximately 3 weeks. History of multiple sclerosis. No reticular symptoms, injury or history of stroke. Concern for possible acute MS flare. COMPARISON: Lumbar spine MR 07/15/2017, CT abdomen and pelvis 06/19/2017, CT chest 06/04/2015 TECHNIQUE: Multiplanar multisequence MRI of the thoracic spine was obtained both with and without the use of 8 mL Gadavist FINDINGS: The large [id number] steel melter localizer images demonstrate mild cardiomegaly without acute abnormality identified involving the head, neck or chest. Dependent bibasilar opacities suggest atelectasis. There is no focal bone marrow edema, fracture, subluxation or marrow replacing process. Signal within the thoracic spinal cord is within normal limits. No abnormal cord enhancement identified. Conus medullaris terminates at the L1 level. Moderate multilevel endplate spurring, intervertebral disc space narrowing and facet arthropathy is noted. Posterior annular disc bulging is most pronounced at the T10-T11 and T12-L1 levels where there is flattening of the ventral thecal sac without significant central canal narrowing. At T10-T11 on the right there is moderate right foraminal narrowing secondary to combination of facet arthropathy and broad-based posterior disc bulge with posterior spondylitic spurring. At T11-T12 there is mild right foraminal stenosis. No additional significant central canal or foraminal narrowing identified throughout the thoracic spine. IMPRESSION: 1. Normal signal within the cord without abnormal signal abnormalities or enhancement to suggest multiple sclerosis. 2. Multilevel endplate spurring, intervertebral disc space narrowing and facet arthropathy as above, most pronounced at the T10-T11 and T12-L1 levels as detailed above. 3. No fracture, subluxation or focal bone marrow edema. The above report was generated using voice recognition software. It may contain grammatical, syntax or spelling errors. Electronically signed by: Hal Pratt M.D. 07/17/2017 11:59 AM Dictated Date/Time: 07/17/2017 11:49 AM
[2017-07-17] MEDS: TRAMADOL HCL 50 MG TAB PO PRN (12:19)
[2017-07-17] MEDS: FENTANYL PATCH REMOVE & WASTE SCH (12:44)
--- NOTE | 2017-07-17 12:49 | DIAGNOSTIC IMAGING REPORT ---
BRAIN COMBO FOR MS HISTORY: 77 years-old Female MS acute back pain with history of multiple sclerosis. Concern for acute multiple sclerosis flareup. COMPARISON: MRI of the brain 11/06/2015 TECHNIQUE: Multiplanar multisequence MRI the brain was obtained both with and without the use of 8 mL Gadavist utilizing multiple sclerosis institutional protocol FINDINGS: The large [id number] localizer images demonstrate no gross abnormality. There is a focal area of increased signal involving the right adame radiata on the diffusion-weighted sequence image 13 series 7 measuring 5 x 4 mm which corresponds with a focal area of increased T2/FLAIR signal within this distribution. No decreased signal on the ADC map. There is suggestion of mild enhancement within this region as seen on image 13 series 35, image 13 series 36 and image 13 series 34. The midline structures including the corpus callosum, brainstem, optic chiasm, pituitary and pineal glands are unremarkable on the sagittal T1 sequence. No cerebellar tonsillar herniation. Degenerative changes are seen involving the imaged upper cervical spine. There is no acute intracranial hemorrhage, midline shift, abnormal extra-axial collections or hydrocephalus. No intracranial mass identified. Mild to moderate cerebral and cerebellar atrophy. There is no abnormal enhancement identified. Patchy and confluent areas of T2/FLAIR prolongation are again seen within the subcortical, deep and periventricular white matter of the cerebral hemispheres bilaterally. No infratentorial lesions are identified. The pattern of disease appears generally stable from prior study with the exception of the single focus of increased T2/FLAIR signal within the right adame radiata, as described above. The major flow voids at the level of the skull base appear patent. Moderate left and small right mastoid effusions. Mild ethmoid sinus disease. Soft tissues are unremarkable. The calvarium and scalp are within normal limits. IMPRESSION: 1. Within the right daame radiata there is a 5 x 4 mm area of mildly increased signal on the T2, FLAIR and diffusion-weighted sequences, with normal signal on the ADC map demonstrating mild ill-defined enhancement. This is a nonspecific finding with differential considerations including a subacute lacunar infarction or T2 shine through with an active demyelinating plaque. Correlate with patient presentation and history. 2. Atrophy with redemonstration of otherwise stable patchy and confluent T2/FLAIR signal abnormalities within the cerebral hemispheres bilaterally as above suggesting chronic microvascular ischemic changes and/or demyelinating disease. 3. Moderate left and small right mastoid effusions. The above report was generated using voice recognition software. It may contain grammatical, syntax or spelling errors. Electronically signed by: Hal Pratt M.D. 07/17/2017 12:48 PM Dictated Date/Time: 07/17/2017 12:30 PM
[2017-07-17] MEDS: FENTANYL 25 MCG/HR TDSY TD SCH (12:50)
--- NOTE | 2017-07-17 13:04 | DIAGNOSTIC IMAGING REPORT ---
CERVICAL SPINE COMBO HISTORY: 77 years-old Female MS follow-up study in a patient with multiple sclerosis. Acute back pain. COMPARISON: Brain MRI and thoracic spine MRI of same day TECHNIQUE: Multiplanar multisequence MRI of the cervical spine was obtained both with and without the use of 8 mL Gadavist utilizing institutional multiple sclerosis protocol FINDINGS: The large [id number] [employer] localizer images demonstrate no gross abnormality. There is no cerebellar tonsillar herniation identified. Signal within the cervical spinal cord is within normal limits. No abnormal enhancement identified. There is no focal bone marrow edema, marrow replacing process, fracture or subluxation. Multilevel spondylitic changes, intervertebral disc space narrowing, disc bulging and facet arthropathy noted as below. C2-C3: Moderate intervertebral disc space narrowing with spondylitic spurring and moderate facet arthropathy. Broad-based posterior disc bulge flattens the ventral thecal sac. No central canal or foraminal narrowing. C3-C4: Moderate intervertebral disc space narrowing with posterior spondylitic spurring and moderate facet arthropathy. There is mild left foraminal stenosis. The central canal and right foramen are patent. Mild flattening of the ventral thecal sac. C4-C5: Moderate intervertebral disc space narrowing with broad-based posterior disc osteophyte complex and moderate facet arthrosis causes mild central canal, mild right and mild to moderate right foraminal stenosis. C5-C6: Moderate intervertebral disc space narrowing with broad-based posterior disc osteophyte complex favoring the left lateral recess and left foramen is noted in addition to moderate facet arthropathy. There is mild central canal, moderate left lateral recess and mild to moderate left foraminal narrowing. Mild right foraminal stenosis. C6-C7: Mild to moderate intervertebral disc space narrowing with mild to moderate facet arthropathy. Broad-based posterior disc osteophyte complex flattens the ventral thecal sac without significant central canal or foraminal narrowing. C7-T1: Mild to moderate intervertebral disc space narrowing with posterior spondylitic spurring and broad-based posterior disc bulge with moderate facet arthropathy. Flattening of the ventral thecal sac without significant central canal or foraminal stenosis. Mild endplate changes are seen within the imaged upper thoracic spine. IMPRESSION: 1. Normal signal within the cervical spinal cord without evidence of the demyelinating disease or abnormal enhancement. 2. No bone marrow or soft tissue edema, acute fracture or subluxation. 3. Multilevel discogenic degenerative changes and facet arthropathy as detailed level by level above with varying degrees of central canal and foraminal narrowing, most pronounced at the C4-C5 and C5-C6 levels. The above report was generated using voice recognition software. It may contain grammatical, syntax or spelling errors. Electronically signed by: Hal Pratt M.D. 07/17/2017 1:03 PM Dictated Date/Time: 07/17/2017 12:53 PM
--- NOTE | 2017-07-17 13:28 | Pharmacy Progress Note ---
Glycemic: Assessment & Plan Date of Service Jul 17, 2017. Assessment & Plan ASSESSMENT: * 77 yo T2DM female admitted with back pain - likely MS flare * Pt on orals only as outpatient and A1c indicative of suboptimal outpatient control; however, given comorbidities her goal could be 8-8.5% * Pt receiving SQ basal bolus insulin regimen for hyperglycemia secondary to baseline DM (outpatient regimen on hold), stress from pain/MS flare, and high dose IV solumedrol 1 g IV administered 07/15/17 ~2200 * Over the past 24 hours, pt has required ~83 units of insulin * Fasting BSG this AM = 110 mg/dL * BSGs have significantly trended down as the effects of the steroid bolus dissipate * Plan will be to loosen Novolog coverage and continue a Lantus BID based on BSG trend PLAN FOR INPATIENT GLYCEMIC CONTROL: * Oral Agents * Continue to hold outpatient oral diabetes medications. * Basal insulin: Reduce * Lantus 0-15 units SQ BID * BSG <120: HOLD * BSG 120-180: 8 UNITS * BSG >180: 14 UNITS * Bolus insulin: Loosen * NovoLog per scale ACHS or Q6hrs while NPO * Goal Range: Low 110 mg/dL - High 140 mg/dL * Correction Factor: 30 mg/dL/unit * Nutritional / Prandial insulin per carb ratio of 1 unit per 10 grams CHO consumed * Please note that the plan above was derived based on current level of insulin resistance and hospital stress. These recommendations are appropriate for inpatient admission only. Plan of care upon discharge will need to be reassessed to avoid potential outpatient hypo/hyperglycemia. Thank you.
--- NOTE | 2017-07-17 14:16 | Progress Note ---
Internal Med Progress Note Date of Service: Jul 17, 2017. Provider Documentation: SUBJECTIVE: Seen and examined at bedside States having persistent lower back pain radiating down left leg which worsens with ambulation reports nausea but no vomiting Denies chest pain, SOB, dizziness Family at bedside Patient prefers to be avoided any surgical procedure if able OBJECTIVE: Vital Signs-as noted below Physical Exam: General Appearance:Moderately built and nourished, no apparent distress Head: normocephalic, Atraumatic Eyes: normal inspection, EOMI, PERRL Neck: supple, Trachea midline Respiratory/Chest: Normal breath sounds, CTA Cardiovascular: S1, S2, No murmur Abdomen/GI:Soft, Non tender, Bowel sounds present Back: Paraspinal tenderness L region Extremities/Musculoskelatal:normal inspection, no edema Neurologic/Psych:AAOX3, LLE weakness Skin: normal color, warm Lab data as noted below. ASSESSMENT & PLAN: Patient is a 77yr female with a PMH of MS, DM II, HTN, HLD, CAD (s/p stents x 3 in 2008), hypothyroidism, h/o DVT (on coumadin) who presents with worsening lower back pain over the past few weeks. Lower back pain, L hip pain: Likely multifactorial, Lumbar radiculopathy, less likely MS exacerbation, chronic degenerative changes Patient states L LE weakness similar to previous MS flares Received high dose solu-medrol on presentation Appreciate Neurology Input Continue home dose Gilenya Lumbar spine MRI with multilevel lumbosacral spondylosis MRI Brain, Cervical and Thoracic Spine as below Continue Morphine, Fentanyl patch, gabapentin, tramadol and Nucynta 50mg Q4 PRN for pain control Monitor WBC while on Gilenya. Plan to hold Gilenya if leukopenia persists in next 2-3 weeks period. Appreciate Pain management Input Neurontin dose increased to 600mg TID Patient prefers to avoid any surgical procedure if able May need SI injection, await for pain management input Will consider Orthopedics eval if patient agreeable continue current meds MARY/Hyperkalemia: Hold Lisinopril Cr better S/P IV fluids Monitor renal function Avoid nephrotoxic agents as able DM II: Hgb a1c of 8.1 in 2012 hgb a1c:9.0, likley from recent prednisone use Hold home agents BSG checks AC HS ISS, lantus CAD (s/p stents x 3): Asymptomatic Continue aspirin, statin Also on coumadin Hypothyroidism: Continue levothyroxine H/o DVT: On chronic anticoagulation with coumadin Continue coumadin Monitor INR: subtherapeutic INR:1.5 today HTN: Stable, labile Hold Lisinopril secondary to MARY Nifedipine dose increased to 90mg daily DVT Ppx: on coumadin Code status: FULL PCP: Celi Dispo: Plan to return home once medically stable PROCEDURES: MRI Brain: 1. Within the right adame radiata there is a 5 x 4 mm area of mildly increased signal on the T2, FLAIR and diffusion-weighted sequences, with normal signal on the ADC map demonstrating mild ill-defined enhancement. This is a nonspecific finding with differential considerations including a subacute lacunar infarction or T2 shine through with an active demyelinating plaque. Correlate with patient presentation and history. 2. Atrophy with redemonstration of otherwise stable patchy and confluent T2/FLAIR signal abnormalities within the cerebral hemispheres bilaterally as above suggesting chronic microvascular ischemic changes and/or demyelinating disease. 3. Moderate left and small right mastoid effusions. MRI C-spine: 1. Normal signal within the cervical spinal cord without evidence of the demyelinating disease or abnormal enhancement. 2. No bone marrow or soft tissue edema, acute fracture or subluxation. 3. Multilevel discogenic degenerative changes and facet arthropathy as detailed level by level above with varying degrees of central canal and foraminal narrowing, most pronounced at the C4-C5 and C5-C6 levels. MRI T-spine: 1. Normal signal within the cord without abnormal signal abnormalities or enhancement to suggest multiple sclerosis. 2. Multilevel endplate spurring, intervertebral disc space narrowing and facet arthropathy as above, most pronounced at the T10-T11 and T12-L1 levels as detailed above. 3. No fracture, subluxation or focal bone marrow edema. MRI L-spine: 1. Multilevel lumbosacral spondylosis as above with acquired compromise of the central canal that is greatest at L4-L5. See discussion for detailed [id number] analysis. 2. No destructive bony lesion is seen. Vital Signs: Date Time Temp Pulse Resp B/P (MAP) Pulse Ox O2 Delivery O2 Flow Rate FiO2 07/17/17 08:10 Room Air 07/17/17 06:59 36.7 58 18 161/68 (99) 93 Room Air 07/16/17 23:58 Room Air 07/16/17 23:35 36.9 74 20 131/60 (83) 94 Room Air 07/16/17 16:00 Room Air 07/16/17 15:23 36.7 60 20 134/74 (94) 93 Room Air Lab Results: Results Past 24 Hours Test 07/16/17 16:22 07/16/17 19:59 07/17/17 00:01 07/17/17 03:48 Range/Units Bedside Glucose 228 203 110 127 70-90 mg/dl Test 07/17/17 06:40 07/17/17 07:08 07/17/17 12:09 Range/Units White Blood Count 7.83 4.8-10.8 K/uL Red Blood Count 3.36 4.2-5.4 M/uL Hemoglobin 10.3 12.0-16.0 g/dL Hematocrit 31.3 37-47 % Mean Corpuscular Volume 93.2 80-100 fL Mean Corpuscular Hemoglobin 30.7 25-34 pg Mean Corpuscular Hemoglobin Concent 32.9 32-36 g/dl Platelet Count 206 130-400 K/uL Mean Platelet Volume 10.1 7.4-10.4 fL Neutrophils (%) (Auto) 85.6 % Lymphocytes (%) (Auto) 4.9 % Monocytes (%) (Auto) 9.2 % Eosinophils (%) (Auto) 0.0 % Basophils (%) (Auto) 0.0 % Neutrophils # (Auto) 6.71 1.4-6.5 K/uL Lymphocytes # (Auto) 0.38 1.2-3.4 K/uL Monocytes # (Auto) 0.72 0.11-0.59 K/uL Eosinophils # (Auto) 0.00 0-0.5 K/uL Basophils # (Auto) 0.00 0-0.2 K/uL RDW Standard Deviation 48.1 36.4-46.3 fL RDW Coefficient of Variation 14.2 11.5-14.5 % Immature Granulocyte % (Auto) 0.3 % Immature Granulocyte # (Auto) 0.02 0.00-0.02 K/uL Prothrombin Time 16.8 9.0-12.0 SECONDS Prothromb Time International Ratio 1.5 0.9-1.1 Sodium Level 140 136-145 mmol/L Potassium Level 5.0 3.5-5.1 mmol/L Chloride Level 107 98-107 mmol/L Carbon Dioxide Level 29 21-32 mmol/L Anion Gap 4.0 3-11 mmol/L Blood Urea Nitrogen 34 7-18 mg/dl Creatinine 1.45 0.60-1.20 mg/dl Est Creatinine Clear Calc Drug Dose 30.9 ml/min Estimated GFR () 40.4 Estimated GFR (Non- 34.9 BUN/Creatinine Ratio 23.4 10-20 Random Glucose 122 70-99 mg/dl Calcium Level 9.5 8.5-10.1 mg/dl Magnesium Level 2.2 1.8-2.4 mg/dl Bedside Glucose 110 114 70-90 mg/dl
[2017-07-17 14:47] VITALS: BP 109/51; PULSE 57; TEMP 36.6; O2SAT 94
[2017-07-17] MEDS: WARFARIN SOD 3 MG TAB PO SCH (15:59)
[2017-07-17] MEDS: TAPENTADOL HCL 50 MG TAB PO PRN (16:52)
[2017-07-17] MEDS: SIMVASTATIN 20 MG TAB PO SCH (21:03)
[2017-07-17 22:54] VITALS: BP 131/57; PULSE 59; TEMP 36.3; O2SAT 92
[2017-07-18] MEDS: LEVOTHYROXINE 75 MCG TAB PO SCH (05:45)
[2017-07-18] MEDS: TAPENTADOL HCL 50 MG TAB PO PRN (05:45)
[2017-07-18 07:18] VITALS: BP 145/54; PULSE 55; TEMP 36.4; O2SAT 92
[2017-07-18 07:23] LABS: BASO % 0.2 %; BASO ABS # 0.01 K/uL (0-0.2); COMPLETE YES; EOS % 2.5 %; HEMATOCRIT 32.7 % (37-47); LYMPH % 9.4 %; LYMPH ABS # 0.38 K/uL (1.2-3.4); MEAN CELL VOLUME 94.8 fL (80-100); MEAN CORPUSCULAR HEMOGLOBIN 30.7 pg (25-34); MEAN CORPUSCULAR HGB CONC 32.4 g/dl (32-36); MEAN PLATELET VOLUME 10.6 fL (7.4-10.4); MONO % 15.4 %; NEUT % 72.5 %; PLATELET COUNT 214 K/uL (130-400); RED BLOOD COUNT 3.45 M/uL (4.2-5.4); WHITE BLOOD COUNT 4.03 K/uL (4.8-10.8)
[2017-07-18 07:36] LABS: INR 1.6 (0.9-1.1)
--- NOTE | 2017-07-18 07:47 | Pharmacy Progress Note ---
Glycemic: Assessment & Plan Date of Service Jul 18, 2017. Assessment & Plan ASSESSMENT: * 77 yo T2DM female admitted with back pain - likely MS flare * Pt on orals only as outpatient and A1c indicative of suboptimal outpatient control; however, given comorbidities her goal could be 8-8.5% * Pt receiving SQ basal bolus insulin regimen for hyperglycemia secondary to baseline DM (outpatient regimen on hold), stress from pain/MS flare, and high dose IV solumedrol 1 g IV administered 07/15/17 ~2200 * On 07/16 (the day following the solumedrol bolus) --> pt required 83 units of insulin total * Over the past 24 hours, her needs have dramatically decreased and she has only required 39 units of insulin * Fasting BSG this AM = 73 mg/dL which is below goal range * Hold basal insulin for today and re-evaluate need for maybe a small daily dose in the AM * Restart oral metformin and pioglitazone as we may be nearing discharge PLAN FOR INPATIENT GLYCEMIC CONTROL: * Oral Agents * Add Metformin 500 mg PO daily * Add Pioglitazone 15 mg PO daily * Basal insulin: Hold - reevaluate tomorrow * Bolus insulin: * NovoLog per scale ACHS or Q6hrs while NPO * Goal Range: Low 110 mg/dL - High 140 mg/dL * Correction Factor: 25 mg/dL/unit * Nutritional / Prandial insulin per carb ratio of 1 unit per 9 grams CHO consumed * Please note that the plan above was derived based on current level of insulin resistance and hospital stress. These recommendations are appropriate for inpatient admission only. Plan of care upon discharge will need to be reassessed to avoid potential outpatient hypo/hyperglycemia. Thank you.
[2017-07-18 07:58] LABS: BUN/CREATININE RATIO 21.1 (10-20); CALCIUM 9.3 mg/dl (8.5-10.1); CREATININE 1.55 mg/dl (0.60-1.20); MAGNESIUM 2.4 mg/dl (1.8-2.4); POTASSIUM 5.1 mmol/L (3.5-5.1)
[2017-07-18] MEDS: INSULIN GLARGINE SOLOSTAR 100 UNITS/ML 3 ML PEN SC SCH (08:44)
[2017-07-18] MEDS: PIOGLITAZONE TAB 15 MG TAB PO SCH (08:46)
[2017-07-18] MEDS: ROPINIROLE HCL 1 MG TAB PO SCH ×2 (08:47→21:47)
[2017-07-18] MEDS: FoLIC ACID TAB 400 MCG TAB PO SCH (08:47)
[2017-07-18] MEDS: CYANOCOBALAMIN 500 MCG TAB (VIT B-12) PO SCH (08:47)
[2017-07-18] MEDS: RANITIDINE HCL 150 MG TAB PO SCH ×2 (08:47→21:47)
[2017-07-18] MEDS: METFORMIN HCL 500 MG TAB PO SCH (08:47)
[2017-07-18] MEDS: FINGOLIMOD HCL 0.5 MG CAP PO SCH (08:47)
[2017-07-18] MEDS: PANTOprazole SOD 40 MG TAB PO SCH (08:47)
[2017-07-18] MEDS: GABAPENTIN 600 MG TAB PO SCH ×2 (08:47→11:44)
[2017-07-18] MEDS: ASPIRIN 81 MG ECTAB PO SCH (08:47)
[2017-07-18] MEDS: NIFEdipine 30 MG CR TAB PO SCH (08:47)
[2017-07-18] MEDS: INSULIN ASPART 100 UNITS/ML 3 ML PEN SC SCH ×4 (08:48→21:49)
[2017-07-18] MEDS: CHECK FENTANYL PATCH PLACEMENT SCH ×4 (08:49→23:41)
[2017-07-18] MEDS: MoRPHine SULFATE 2 MG/ML CARP IV PRN ×2 (08:52→18:36)
--- NOTE | 2017-07-18 09:32 | Clinical Documentation Query ---
CLINICAL DOCUMENTATION QUERY Dr. BOBO, In your clinical opinion is this patient being managed for: ( X ) Chronic kidney disease, stage 3 ( ) Not Agree ( ) Other explanation of clinical findings (Please Explain) ( ) Unable to determine (Please Define) ( ) Need to Discuss The medical record reflects the following clinical findings, treatment, and risk factors. Clinical Indicators: 77 yo female presenting with back and hip pain. Review of GFR range over the past 2 years reveals a range of 31.9-40.4 Treatment: monitor PRP's, treat comorbid diseases Risk Factors:DM, age, HTN, heart disease Please clarify and document your clinical opinion in the progress notes and discharge summary. Terms such as "probable", "suspected", "likely", "questionable", "possible", or "still to be ruled out" are acceptable. IF IN AGREEMENT, YOU MUST DOCUMENT ABOVE DIAGNOSTIC STATEMENT IN DAILY PROGRESS NOTES AND DISCHARGE SUMMARY. This document is not part of the patient's record. Thank You, Karoline Hernandez, LISETTE [phone]
--- NOTE | 2017-07-18 10:16 | Neurology Progress Notes ---
Neurology Progress Note Date of Service Jul 18, 2017. Subjective Patient is accompanied by her and daughter at the bedside. She has significant low back and left lower extremity pain with weakness in the left leg. This is somewhat better since admission but still prominent. She continues to have tremor in her arms as before. She has no other new weakness, numbness, vision, or other new issue, such as would be related to her MS. MRI of the brain showed extensive white matter changes bilaterally, periventricular early consistent with MS. There are "Carreno's fingers" noted periventricular early bilaterally, which is her reminiscent of multiple sclerosis lesions. Otherwise, I cannot distinguish MS in this setting from chronic ischemia. There was 1 new slightly enhancing lesion on the right. This is likely subacute. Incidentally, there was some left greater than right mastoiditis changes present. MRI of the cervical spine shows some degenerative changes and no MS lesions. MRI of the thoracic spine showed no MS lesions. MRI of the lumbar spine showed diffuse degenerative changes of disc in bone with significant spinal stenosis at L5. I have reviewed the MRI films of the brain and lumbar spine with the patient and her family as well as all of the MRI reports. Objective Date Time Temp Pulse Resp B/P (MAP) Pulse Ox O2 Delivery O2 Flow Rate FiO2 07/18/17 08:00 Room Air 07/18/17 07:18 36.4 55 16 145/54 (84) 92 07/18/17 00:00 Room Air 07/17/17 22:54 36.3 59 18 131/57 (81) 92 Room Air 07/17/17 20:00 Room Air 07/17/17 16:00 Room Air 07/17/17 14:47 36.6 57 20 109/51 (70) 94 Last 24 Hours Test 07/17/17 12:09 07/17/17 15:49 07/17/17 16:03 07/17/17 19:58 Bedside Glucose 114 mg/dl 185 mg/dl 126 mg/dl Troponin I < 0.015 ng/ml Test 07/17/17 20:47 07/18/17 06:48 Troponin I < 0.015 ng/ml White Blood Count 4.03 K/uL Red Blood Count 3.45 M/uL Hemoglobin 10.6 g/dL Hematocrit 32.7 % Mean Corpuscular Volume 94.8 fL Mean Corpuscular Hemoglobin 30.7 pg Mean Corpuscular Hemoglobin Concent 32.4 g/dl Platelet Count 214 K/uL Mean Platelet Volume 10.6 fL Neutrophils (%) (Auto) 72.5 % Lymphocytes (%) (Auto) 9.4 % Monocytes (%) (Auto) 15.4 % Eosinophils (%) (Auto) 2.5 % Basophils (%) (Auto) 0.2 % Neutrophils # (Auto) 2.92 K/uL Lymphocytes # (Auto) 0.38 K/uL Monocytes # (Auto) 0.62 K/uL Eosinophils # (Auto) 0.10 K/uL Basophils # (Auto) 0.01 K/uL RDW Standard Deviation 50.4 fL RDW Coefficient of Variation 14.6 % Immature Granulocyte % (Auto) 0.0 % Immature Granulocyte # (Auto) 0.00 K/uL Prothrombin Time 17.0 SECONDS Prothromb Time International Ratio 1.6 Sodium Level 142 mmol/L Potassium Level 5.1 mmol/L Chloride Level 104 mmol/L Carbon Dioxide Level 29 mmol/L Anion Gap 9.0 mmol/L Blood Urea Nitrogen 33 mg/dl Creatinine 1.55 mg/dl Est Creatinine Clear Calc Drug Dose 28.9 ml/min Estimated GFR () 37.3 Estimated GFR (Non- 32.2 BUN/Creatinine Ratio 21.1 Random Glucose 73 mg/dl Calcium Level 9.3 mg/dl Magnesium Level 2.4 mg/dl Imaging: BRAIN COMBO FOR MS HISTORY: 77 years-old Female MS acute back pain with history of multiple sclerosis. Concern for acute multiple sclerosis flareup. COMPARISON: MRI of the brain 11/06/2015 TECHNIQUE: Multiplanar multisequence MRI the brain was obtained both with and without the use of 8 mL Gadavist utilizing multiple sclerosis institutional protocol FINDINGS: The large [id number] localizer images demonstrate no gross abnormality. There is a focal area of increased signal involving the right adame radiata on the diffusion-weighted sequence image 13 series 7 measuring 5 x 4 mm which corresponds with a focal area of increased T2/FLAIR signal within this distribution. No decreased signal on the ADC map. There is suggestion of mild enhancement within this region as seen on image 13 series 35, image 13 series 36 and image 13 series 34. The midline structures including the corpus callosum, brainstem, optic chiasm, pituitary and pineal glands are unremarkable on the sagittal T1 sequence. No cerebellar tonsillar herniation. Degenerative changes are seen involving the imaged upper cervical spine. There is no acute intracranial hemorrhage, midline shift, abnormal extra-axial collections or hydrocephalus. No intracranial mass identified. Mild to moderate cerebral and cerebellar atrophy. There is no abnormal enhancement identified. Patchy and confluent areas of T2/FLAIR prolongation are again seen within the subcortical, deep and periventricular white matter of the cerebral hemispheres bilaterally. No infratentorial lesions are identified. The pattern of disease appears generally stable from prior study with the exception of the single focus of increased T2/FLAIR signal within the right adame radiata, as described above. The major flow voids at the level of the skull base appear patent. Moderate left and small right mastoid effusions. Mild ethmoid sinus disease. Soft tissues are unremarkable. The calvarium and scalp are within normal limits. IMPRESSION: 1. Within the right adame radiata there is a 5 x 4 mm area of mildly increased signal on the T2, FLAIR and diffusion-weighted sequences, with normal signal on the ADC map demonstrating mild ill-defined enhancement. This is a nonspecific finding with differential considerations including a subacute lacunar infarction or T2 shine through with an active demyelinating plaque. Correlate with patient presentation and history. 2. Atrophy with redemonstration of otherwise stable patchy and confluent T2/FLAIR signal abnormalities within the cerebral hemispheres bilaterally as above suggesting chronic microvascular ischemic changes and/or demyelinating disease. 3. Moderate left and small right mastoid effusions. The above report was generated using voice recognition software. It may contain grammatical, syntax or spelling errors. Electronically signed by: Hal Pratt M.D. 07/17/2017 12:48 PM MRI OF THE LUMBAR SPINE WITHOUT IV CONTRAST CLINICAL HISTORY: Lumbar radiculopathy. COMPARISON STUDY: Abdominal CT dated 06/19/2017. TECHNIQUE: MRI of the lumbar spine is performed utilizing various T1 and T2-weighted sequences in the axial and sagittal planes. IV contrast was not administered for this examination. FINDINGS: Marrow signal intensity is heterogeneous. Vertebral body height is maintained throughout the lumbar spine. Minimal anterolisthesis is noted at L4-L5. Alignment is otherwise preserved. Small anterior osteophytes are seen throughout. The transverse and spinous processes appear intact. There is no evidence of spondylolysis. No destructive bony lesion is seen. Chronic degenerative endplate change is seen at all lumbar levels. No significant marrow edema is identified. Intervertebral discs: Degenerative disc desiccation and mild loss of height is seen throughout the lumbar spine. Spinal cord: The partially imaged spinal cord is normal in morphology and signal intensity. The conus medullaris terminates at the level of L1. The nerve roots of the cauda equina are normal in morphology. T12-L1: There is a small posterior disc bulge seen on the lateral projection. The central canal is clear. L1-L2: There is a posterior disc bulge eccentric to the left. There is no significant acquired compromise of the central canal. The disc bulge causes left-sided subarticular stenosis and may impinge on the exiting left L1 and the transiting left L2 nerve roots. The neural foramina are patent. L2-L3: There is a small posterior disc bulge. In conjunction with hypertrophy of the ligamentum flavum, there is minimal acquired compromise of the central canal with a minimum AP diameter of 9.5 mm. There is mild bilateral subarticular stenosis. The neural foramina are patent. L3-L4: There is posterior disc bulge with annular fissure. There is no significant acquired compromise of the central canal at this level. There is mild bilateral subarticular stenosis. Facet arthropathy causes minimal left neural foraminal stenosis. L4-L5: There is broad-based posterior disc bulge with annular fissure eccentric to the right. In conjunction with hypertrophy of the ligamentum flavum, this causes moderate acquired compromise of the central canal with a minimum AP diameter of 6 mm. There is bilateral subarticular stenosis, right greater than left with possible impingement on the exiting right L4 and both transiting nerve roots. There is minimal tethering of the cauda equina at this level. Facet arthropathy causes mild bilateral neural foraminal stenosis. L5-S1: There is a posterior disc bulge with annular fissure. There is no significant acquired compromise of the central canal at this level. There is bilateral subarticular stenosis with possible impingement on the exiting bilateral L5 and the transiting bilateral nerve roots. Facet arthropathy causes moderate bilateral neural foraminal stenosis. Sacrum: The visual sacrum is normal in morphology and signal intensity. Soft tissues: There is fatty atrophy of the paraspinous and iliopsoas musculature. The kidneys demonstrate cortical atrophy. The retroperitoneal structures are grossly unremarkable but incompletely assessed. IMPRESSION: 1. Multilevel lumbosacral spondylosis as above with acquired compromise of the central canal that is greatest at L4-L5. See discussion for detailed [id number] analysis. 2. No destructive bony lesion is seen. Exam: She is awake and alert. Speech is without aphasia dysarthric. Mood is reasonable and affect is appropriate. Thought processes are intact for long and short-term memory. Extraocular eye muscles are intact without nystagmus. There is no facial droop. Tongue is midline. With outstretched arms, there is no drift but she does have significant postural and action tremor bilaterally. There is no resting tremor. Strength is symmetrical in the arms bilaterally both proximally and distally. The right lower extremity has diffusely normal strength proximally and distally. The left lower extremity is 4/5 diffusely. Reflexes are trace to absent in all 4 limbs. Toes are downgoing with plantar stimulation bilaterally. Current Inpatient Medications Medications (Trade) Dose Ordered Sig/Love Route Start Time Stop Time Status Last Admin Dose Admin Miscellaneous (Iv Fluids Completed) 1 ea PRN PRN N/A 07/15/17 16:30 07/15/18 16:29 07/17/17 02:40 1 EA Acetaminophen (Tylenol Tab) 650 mg Q4H PRN PO 07/15/17 16:30 08/14/17 16:29 07/16/17 09:28 650 MG Ondansetron HCl (Zofran Inj) 4 mg Q6H PRN IV 07/15/17 16:30 08/14/17 16:29 07/17/17 14:19 4 MG Miscellaneous Information (Consult Glycemic Management Pharmacy) 1 ea UD PRN N/A 07/15/17 18:03 08/14/17 18:02 Insulin Glargine (Lantus Solostar Pen) Q12 SC 07/16/17 09:00 08/15/17 08:59 07/17/17 21:02 8 UNITS Insulin Aspart (novoLOG ASPART) SLIDING SCALE If C... ACHS SC 07/15/17 21:00 08/14/17 20:59 07/18/17 08:48 5 UNITS Glucose (Glucose 40% Gel) 15-30 GRAMS 15 GRAMS... UD PRN PO 07/15/17 17:00 08/14/17 16:59 Glucose (Glucose Chew Tab) 4-8 Tablets 4 Tabl... UD PRN PO 07/15/17 17:00 08/14/17 16:59 Dextrose (Dextrose 50% 50ML Syringe) 25-50ML OF 50% DW IV FOR... UD PRN IV 07/15/17 17:00 08/14/17 16:59 Glucagon (Glucagon Inj) 1 mg UD PRN SQ 07/15/17 17:00 08/14/17 16:59 Aspirin (Ecotrin Tab) 81 mg DAILY PO 07/16/17 08:00 08/15/17 07:59 07/18/17 08:47 81 MG Folic Acid (Folvite Tab) 400 mcg DAILY PO 07/16/17 08:00 08/15/17 07:59 07/18/17 08:47 400 MCG Levothyroxine Sodium (Synthroid Tab) 75 mcg DAILYBB PO 07/16/17 06:30 08/15/17 06:29 07/18/17 05:45 75 MCG Lisinopril (Zestril Tab) 20 mg DAILY PO 07/16/17 08:00 08/15/17 07:59 Future Hold 07/16/17 09:21 20 MG Pantoprazole Sodium (Protonix Tab) 40 mg DAILY PO 07/16/17 08:00 08/15/17 07:59 07/18/17 08:47 40 MG Ranitidine HCl (zANTac TAB) 150 mg BID PO 07/16/17 08:00 08/15/17 07:59 07/18/17 08:47 150 MG Ropinirole HCl (Requip Tab) 1 mg BID PO 07/16/17 08:00 08/15/17 07:59 07/18/17 08:47 1 MG Simvastatin (Zocor Tab) 20 mg HS PO 07/16/17 22:00 08/15/17 21:59 07/17/17 21:03 20 MG Tramadol HCl (Ultram Tab) 50 mg BID PRN PO 07/15/17 23:00 08/14/17 22:59 07/17/17 12:19 50 MG Warfarin Sodium (Coumadin Tab) 3 mg DAILY@1600 PO 07/16/17 16:00 08/15/17 15:59 07/17/17 15:59 3 MG Cyanocobalamin (Vitamin B-12 Tab) 1,000 mcg DAILY PO 07/16/17 08:00 12/11/17 07:59 07/18/17 08:47 1,000 MCG Miscellaneous Information (Check Fentanyl Patch Placement) 1 ea QS N/A 07/16/17 00:00 08/15/17 00:00 07/18/17 08:49 1 EA Magnesium Hydroxide (Milk Of Magnesia Susp) 30 ml Q12H PRN PO 07/16/17 00:45 08/15/17 00:44 07/17/17 02:28 30 ML Polyethylene (Miralax Powder Packet) 17 gm DAILY PRN PO 07/16/17 00:45 08/15/17 00:44 07/16/17 17:34 17 GM Nifedipine (Procardia Xl Tab) 90 mg DAILY PO 07/17/17 08:00 08/15/17 07:59 07/18/17 08:47 90 MG Hydralazine HCl (HydrALAZINE INJ) 10 mg Q6H PRN IV. 07/16/17 14:00 08/15/17 13:59 Gadobutrol (Gadavist) 8 mmol UD PRN IV 07/17/17 11:45 07/21/17 11:44 Fentanyl (Duragesic Patch) 25 mcg Q3D@1200 TD 07/17/17 12:00 07/31/17 11:59 07/17/17 12:50 25 MCG Miscellaneous (Fentanyl Patch Remove & Waste) 1 ea Q3D@1200 N/A 07/17/17 12:30 08/16/17 12:29 07/17/17 12:44 1 EA Metformin HCl (Glucophage Tab) 500 mg DAILY PO 07/18/17 08:00 08/17/17 07:59 07/18/17 08:47 500 MG Pioglitazone HCl (ACTos TAB) 15 mg DAILY PO 07/18/17 08:00 08/17/17 07:59 07/18/17 08:46 15 MG Gabapentin (Neurontin Cap) 900 mg BID PO 07/18/17 20:00 08/17/17 19:59 Morphine Sulfate (MoRPHine SULFATE INJ) 2 mg Q8H PRN IV 07/18/17 09:00 08/01/17 08:59 Gabapentin (Neurontin Tab) 600 mg QDL PO 07/18/17 12:00 08/17/17 11:59 Docusate Sodium (coLACE CAP) 100 mg BID PO 07/18/17 20:00 08/17/17 19:59 Impression 1. The acute low back and left lower extremity pain She has known lumbar spinal stenosis and suspected left leg radiculopathy likely L5 over S1. MRI shows significant spinal stenosis around the L5 level. She is not getting adequate pain relief currently. 2. Multiple sclerosis. She has been fairly stable on Gilenya. This will be kept the same. She has 1 new lesion of a subacute nature on the right. I am not sure this correlates with any clinical symptomatology. 3. Bilateral essential tremor, significant, help somewhat with propranolol. Plan 1. Tapering prednisone course, 60 mg today, 50 mg tomorrow, and tapering by 10 mg a day until off Take with food and watch glucose 2. Continue physical therapy. Consider [facility] stay 3. Consider lumbar injection by Pain Management. This should give her considerable help. We are trying to avoid surgery if possible. 4. I think it is reasonable to increase the fentanyl patch to 37.5 mg instead of 25 5. I see no need for any additional neurologic testing at this time. I spoke with Dr. Kumari regarding this case including differential diagnosis and treatment options. I spent a total of 45 minutes with this patient including records review, discussion at the bedside with the patient and her family, and discussion with her care providers including nursing staff and physician.
--- NOTE | 2017-07-18 11:00 | Pain Management Consultation ---
Pain Management Consultation Date of Consultation Jul 18, 2017. Reason for Consultation 77-year-old female with long-standing history of low back pain and fairly recent onset of about 3 months worth of left lower extremity radicular symptoms down her L4 dermatome. He denies any trauma or falls or etiology of her pain. She states that her pain is worse with ambulation and activities of daily living and slightly improved with rest. She denies any bowel or bladder incontinence motor weakness foot drop or any falls recently. She denies any night sweats or fever or chills. She reports the pain ranges between 6 and 10 out of 10 currently 6 out of 10 characterizes sharp shooting and radiating down her left lower extremity predominantly. She also notes some pain over her proximal left buttock with some radiation into left hip. She reports long-standing utilization of fentanyl patches as prescribed by her primary care physician up at [facility]. The patient reports that she recently presented to their office and requested an increase in her final patches and was denied pending further workup. She readily admits that she doubled her fentanyl patches on her own despite knowing the risks of oversedation, overdose, respiratory depression. She reports she doesn't understand why no one will give her additional fentanyl. She reports that she has had some additional weakness in her left lower extremity and attributes this to possibly her multiple sclerosis which she's had is a long-standing diagnosis. 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 She has not previously had epidural steroid injections or adjuvant medications to diminish her pain. She has utilized tramadol off for the last 2 months on a when necessary basis to diminish breakthrough pain. She's tried stretching as well as oral steroids without relief of her pain. Pain Location 1 - 2 - Past Medical/Surgical History (1) Chest pain (2) Lumbar radiculopathy, chronic (3) Multiple sclerosis exacerbation (4) Chronic lumbosacral pain (5) Degenerative joint disease (6) Spinal stenosis (7) Intractable pain (8) Diabetes (9) Heart disease (10) HTN (hypertension) (11) DVT (deep venous thrombosis) (12) MS (multiple sclerosis) (13) Blindness of both eyes (14) Stented coronary artery (15) Hx of cholecystectomy (16) Lumbar radiculopathy, chronic Family History Diabetes mellitus FHx: heart disease Hypertension Family Hx Review: history personally reviewed by me Social / Work History Smokeless Tobacco Use: No Drug Use: none Marital Status: Occupation: retired Allergies Coded Allergies: [place] Blue FCF (Verified Allergy, Unknown, UNKNOWN, 06/19/17) Dimethyl Fumarate (Verified Allergy, Unknown, UNKNOWN, 06/19/17) Medications Current Inpatient Medications Medications (Trade) Dose Ordered Sig/Love Route Start Time Stop Time Status Last Admin Dose Admin Miscellaneous (Iv Fluids Completed) 1 ea PRN PRN N/A 07/15/17 16:30 07/15/18 16:29 07/17/17 02:40 1 EA Acetaminophen (Tylenol Tab) 650 mg Q4H PRN PO 07/15/17 16:30 08/14/17 16:29 07/16/17 09:28 650 MG Ondansetron HCl (Zofran Inj) 4 mg Q6H PRN IV 07/15/17 16:30 08/14/17 16:29 07/17/17 14:19 4 MG Miscellaneous Information (Consult Glycemic Management Pharmacy) 1 ea UD PRN N/A 07/15/17 18:03 08/14/17 18:02 Insulin Glargine (Lantus Solostar Pen) Q12 SC 07/16/17 09:00 08/15/17 08:59 07/17/17 21:02 8 UNITS Insulin Aspart (novoLOG ASPART) SLIDING SCALE If C... ACHS SC 07/15/17 21:00 08/14/17 20:59 07/18/17 08:48 5 UNITS Glucose (Glucose 40% Gel) 15-30 GRAMS 15 GRAMS... UD PRN PO 07/15/17 17:00 08/14/17 16:59 Glucose (Glucose Chew Tab) 4-8 Tablets 4 Tabl... UD PRN PO 07/15/17 17:00 08/14/17 16:59 Dextrose (Dextrose 50% 50ML Syringe) 25-50ML OF 50% DW IV FOR... UD PRN IV 07/15/17 17:00 08/14/17 16:59 Glucagon (Glucagon Inj) 1 mg UD PRN SQ 07/15/17 17:00 08/14/17 16:59 Aspirin (Ecotrin Tab) 81 mg DAILY PO 07/16/17 08:00 08/15/17 07:59 07/18/17 08:47 81 MG Folic Acid (Folvite Tab) 400 mcg DAILY PO 07/16/17 08:00 08/15/17 07:59 07/18/17 08:47 400 MCG Levothyroxine Sodium (Synthroid Tab) 75 mcg DAILYBB PO 07/16/17 06:30 08/15/17 06:29 07/18/17 05:45 75 MCG Lisinopril (Zestril Tab) 20 mg DAILY PO 07/16/17 08:00 08/15/17 07:59 Future Hold 07/16/17 09:21 20 MG Pantoprazole Sodium (Protonix Tab) 40 mg DAILY PO 07/16/17 08:00 08/15/17 07:59 07/18/17 08:47 40 MG Ranitidine HCl (zANTac TAB) 150 mg BID PO 07/16/17 08:00 08/15/17 07:59 07/18/17 08:47 150 MG Ropinirole HCl (Requip Tab) 1 mg BID PO 07/16/17 08:00 08/15/17 07:59 07/18/17 08:47 1 MG Simvastatin (Zocor Tab) 20 mg HS PO 07/16/17 22:00 08/15/17 21:59 07/17/17 21:03 20 MG Tramadol HCl (Ultram Tab) 50 mg BID PRN PO 07/15/17 23:00 08/14/17 22:59 07/17/17 12:19 50 MG Warfarin Sodium (Coumadin Tab) 3 mg DAILY@1600 PO 07/16/17 16:00 08/15/17 15:59 07/17/17 15:59 3 MG Cyanocobalamin (Vitamin B-12 Tab) 1,000 mcg DAILY PO 07/16/17 08:00 08/15/17 07:59 07/18/17 08:47 1,000 MCG Miscellaneous Information (Check Fentanyl Patch Placement) 1 ea QS N/A 07/16/17 00:00 08/15/17 00:00 07/18/17 08:49 1 EA Magnesium Hydroxide (Milk Of Magnesia Susp) 30 ml Q12H PRN PO 07/16/17 00:45 08/15/17 00:44 07/17/17 02:28 30 ML Polyethylene (Miralax Powder Packet) 17 gm DAILY PRN PO 07/16/17 00:45 08/15/17 00:44 07/16/17 17:34 17 GM Nifedipine (Procardia Xl Tab) 90 mg DAILY PO 07/17/17 08:00 08/15/17 07:59 07/18/17 08:47 90 MG Hydralazine HCl (HydrALAZINE INJ) 10 mg Q6H PRN IV. 07/16/17 14:00 08/15/17 13:59 Gadobutrol (Gadavist) 8 mmol UD PRN IV 07/17/17 11:45 07/21/17 11:44 Fentanyl (Duragesic Patch) 25 mcg Q3D@1200 TD 07/17/17 12:00 07/31/17 11:59 07/17/17 12:50 25 MCG Miscellaneous (Fentanyl Patch Remove & Waste) 1 ea Q3D@1200 N/A 07/17/17 12:30 08/16/17 12:29 07/17/17 12:44 1 EA Metformin HCl (Glucophage Tab) 500 mg DAILY PO 07/18/17 08:00 08/17/17 07:59 07/18/17 08:47 500 MG Pioglitazone HCl (ACTos TAB) 15 mg DAILY PO 07/18/17 08:00 08/17/17 07:59 07/18/17 08:46 15 MG Gabapentin (Neurontin Cap) 900 mg BID PO 07/18/17 20:00 08/17/17 19:59 Morphine Sulfate (MoRPHine SULFATE INJ) 2 mg Q8H PRN IV 07/18/17 09:00 08/01/17 08:59 Gabapentin (Neurontin Tab) 600 mg QDL PO 07/18/17 12:00 08/17/17 11:59 Docusate Sodium (coLACE CAP) 100 mg BID PO 07/18/17 20:00 08/17/17 19:59 Review of Systems 10 point review of systems was otherwise negative aside from HPI Physical Exam Height & Weight: Height 5 feet, 0.00 inches. Weight 80.000 (Kilograms) 176 (Pounds) Last Vital Signs Documentation Date Time Temp Pulse Resp B/P (MAP) Pulse Ox O2 Delivery O2 Flow Rate FiO2 07/18/17 08:00 Room Air 07/18/17 07:18 36.4 55 16 145/54 (84) 92 07/16/17 00:13 1.0 Exam: GENERAL: 77-year-old female who is awake, alert and oriented. Appears well developed. Is in no distress at the present time. She is petite and overweight and significantly deconditioned PSYCHIATRIC: Demonstrates normal and clear sensorium. Mood and affect are appropriate. Short-term and long-term memory is intact. HEAD AND NECK: No obvious trauma. Demonstrates full range of motion of the cervical spine. No lymphadenopathy is noted. Trachea midline. EARS, EYES AND NOSE: Mucous membranes pink and moist. No mucosal lesions noted. Tongue midline. LUNGS: No audible wheezes or rhonchi. Normal chest excursion. CARDIAC: Regular rate and rhythm. ABDOMEN: Normal bowel sounds. Soft nontender. No organomegaly appreciated. Obese BACK: Inspection of the lumbar spine demonstrates slight loss of lumbar lordosis. No lesions are noted in the lumbar spine region. Provocative testing of the facet joints bilaterally is negative. She is tender over the left greater trochanter nontender over the right. She is exquisitely tender over her left sacroiliac joint nontender over the right. She has a negative Fabere bilaterally negative Gaenslen's bilaterally. No myofascial tenderness or trigger points identifiable in the paraspinous musculature. Neurologically, straight leg raising is negative bilaterally past 90 and no changes noted Achilles stretch. She has decreased range of motion in all planes of her lumbar spine. NEUROLOGICAL: Cranial nerves II through XII grossly intact. No gross sensory or motor deficits noted in the upper extremity. Sensation and motor strength in the lower extremity are symmetrical without deficit. No pathologic reflexes are noted in the lower extremities. Gait is [unremarkable]. Reflexes: patellar Reflex L [+ 1] R [+ 1] Achilles Reflex L [+ 1] R [+ 1] Laboratory Laboratory Results (Last CBC): 07/18/17 06:48 Red Blood Count 3.45 L, Mean Corpuscular Volume 94.8, Mean Corpuscular Hemoglobin 30.7, Mean Corpuscular Hemoglobin Concent 32.4, Mean Platelet Volume 10.6 H, Neutrophils (%) (Auto) 72.5, Lymphocytes (%) (Auto) 9.4, Monocytes (%) ( Auto) 15.4, Eosinophils (%) (Auto) 2.5, Basophils (%) (Auto) 0.2, Neutrophils # (Auto) 2.92, Lymphocytes # (Auto) 0.38 L, Monocytes # (Auto) 0.62 H, Eosinophils # (Auto) 0.10, Basophils # (Auto) 0.01 Imaging MRI: enhanced, non enhanced, reports reviewed MRI Findings Patient: LAURYN JO [address] [facility] Rec: [id number] Address2: Acct ID: [id number] [facility] Zip: [place] Date: 1940 Sex: F Room/Bed: [facility] Ref Phy: Chris Reis PA-C SC: [id number] Att Phy: Stevo Kumari MD Report #: [id number] Karlee Phy: Chris Reis PA-C Test: BRCMS Admit Phy: Patricia Zaman DO Hod Carrier: EDGAR Interpreting Phy: Juan Carlos Pratt D.O. Diagnosis: CHRONIC LUMBOSACRAL PAIN Ordering Phy: Eladio Collins MD Service Date: 07/17/17 Admit Date: 07/15/1711/10/17 MNE: [id number] CONF: DICTATED BY: Juan Carlos Pratt D.O.]] CC: Eladio Collins M.D. Lazorka, Jeremy D. PA-C Vangala, Satish K., MD Endcc: [~ rep ct add3]] BRAIN COMBO FOR MS HISTORY: 77 years-old Female MS acute back pain with history of multiple sclerosis. Concern for acute multiple sclerosis flareup. COMPARISON: MRI of the brain 11/06/2015 TECHNIQUE: Multiplanar multisequence MRI the brain was obtained both with and without the use of 8 mL Gadavist utilizing multiple sclerosis institutional protocol FINDINGS: The large ybjcf-[id number] localizer images demonstrate no gross abnormality. There is a focal area of increased signal involving the right adame radiata on the diffusion-weighted sequence image 13 series 7 measuring 5 x 4 mm which corresponds with a focal area of increased T2/FLAIR signal within this distribution. No decreased signal on the ADC map. There is suggestion of mild enhancement within this region as seen on image 13 series 35, image 13 series 36 and image 13 series 34. The midline structures including the corpus callosum, brainstem, optic chiasm, pituitary and pineal glands are unremarkable on the sagittal T1 sequence. No cerebellar tonsillar herniation. Degenerative changes are seen involving the imaged upper cervical spine. There is no acute intracranial hemorrhage, midline shift, abnormal extra-axial collections or hydrocephalus. No intracranial mass identified. Mild to moderate cerebral and cerebellar atrophy. There is no abnormal enhancement identified. Patchy and confluent areas of T2/FLAIR prolongation are again seen within the subcortical, deep and periventricular white matter of the cerebral hemispheres bilaterally. No infratentorial lesions are identified. The pattern of disease appears generally stable from prior study with the exception of the single focus of increased T2/FLAIR signal within the right adame radiata, as described above. The major flow voids at the level of the skull base appear patent. Moderate left and small right mastoid effusions. Mild ethmoid sinus disease. Soft tissues are unremarkable. The calvarium and scalp are within normal limits. IMPRESSION: 1. Within the right adame radiata there is a 5 x 4 mm area of mildly increased signal on the T2, FLAIR and diffusion-weighted sequences, with normal signal on the ADC map demonstrating mild ill-defined enhancement. This is a nonspecific finding with differential considerations including a subacute lacunar infarction or T2 shine through with an active demyelinating plaque. Correlate with patient presentation and history. 2. Atrophy with redemonstration of otherwise stable patchy and confluent T2/FLAIR signal abnormalities within the cerebral hemispheres bilaterally as above suggesting chronic microvascular ischemic changes and/or demyelinating disease. 3. Moderate left and small right mastoid effusions. Patient: LAURYN JO Address1: [address] [facility] Rec: [id number] Address2: Acct ID: [id number] [facility] Zip: [place] [address] Date: 1940 Sex: F Room/Bed: [facility] Ref Phy: Chris Reis PA-C SC: [id number] Att Phy: Stevo Kumari MD Report #: [id number] Karlee Phy: Chris Reis PA-C Test: CVC Admit Phy: Patricia Zaman DO Hod Carrier: EDGAR Interpreting Phy: Juan Carlos Pratt D.O. Diagnosis: CHRONIC LUMBOSACRAL PAIN Ordering Phy: Elaido Collins MD Service Date: 07/17/17 Admit Date: 07/15/1711/10/17 MNE: [id number] CONF: DICTATED BY: Juan Carlos Pratt D.O.]] CC: Eladio Collins M.D. Lazorka, Jeremy D. PA-C Vangala, Satish K., MD Endcc: [~ rep ct add3]] CERVICAL SPINE COMBO HISTORY: 77 years-old Female MS follow-up study in a patient with multiple sclerosis. Acute back pain. COMPARISON: Brain MRI and thoracic spine MRI of same day TECHNIQUE: Multiplanar multisequence MRI of the cervical spine was obtained both with and without the use of 8 mL Gadavist utilizing institutional multiple sclerosis protocol FINDINGS: The large dttvr-nz-fktw retail aide localizer images demonstrate no gross abnormality. There is no cerebellar tonsillar herniation identified. Signal within the cervical spinal cord is within normal limits. No abnormal enhancement identified. There is no focal bone marrow edema, marrow replacing process, fracture or subluxation. Multilevel spondylitic changes, intervertebral disc space narrowing, disc bulging and facet arthropathy noted as below. C2-C3: Moderate intervertebral disc space narrowing with spondylitic spurring and moderate facet arthropathy. Broad-based posterior disc bulge flattens the ventral thecal sac. No central canal or foraminal narrowing. C3-C4: Moderate intervertebral disc space narrowing with posterior spondylitic spurring and moderate facet arthropathy. There is mild left foraminal stenosis. The central canal and right foramen are patent. Mild flattening of the ventral thecal sac. C4-C5: Moderate intervertebral disc space narrowing with broad-based posterior disc osteophyte complex and moderate facet arthrosis causes mild central canal, mild right and mild to moderate right foraminal stenosis. C5-C6: Moderate intervertebral disc space narrowing with broad-based posterior disc osteophyte complex favoring the left lateral recess and left foramen is noted in addition to moderate facet arthropathy. There is mild central canal, moderate left lateral recess and mild to moderate left foraminal narrowing. Mild right foraminal stenosis. C6-C7: Mild to moderate intervertebral disc space narrowing with mild to moderate facet arthropathy. Broad-based posterior disc osteophyte complex flattens the ventral thecal sac without significant central canal or foraminal narrowing. C7-T1: Mild to moderate intervertebral disc space narrowing with posterior spondylitic spurring and broad-based posterior disc bulge with moderate facet arthropathy. Flattening of the ventral thecal sac without significant central canal or foraminal stenosis. Mild endplate changes are seen within the imaged upper thoracic spine. IMPRESSION: 1. Normal signal within the cervical spinal cord without evidence of the demyelinating disease or abnormal enhancement. 2. No bone marrow or soft tissue edema, acute fracture or subluxation. 3. Multilevel discogenic degenerative changes and facet arthropathy as detailed level by level above with varying degrees of central canal and foraminal narrowing, most pronounced at the C4-C5 and C5-C6 levels. Patient: LAURYN JO Address1: [address] [place] [address] Rec: [id number] Address2: Acct ID: [id number] [facility] Zip: [place] [address] Date: 1940 Sex: F Room/Bed: [facility] Ref Phy: Chris Reis PA-C SC: [id number] Att Phy: Stevo Kumari MD Report #: [id number] Karlee Phy: Chris Reis PA-C Test: TSCO Admit Phy: Patricia Zaman DO Hod Carrier: EDGAR Interpreting Phy: Juan Carlos Pratt D.O. Diagnosis: CHRONIC LUMBOSACRAL PAIN Ordering Phy: Eladio Collins MD Service Date: 07/17/17 Admit Date: 07/15/1711/10/17 MNE: PWRSCRIBE CONF: DICTATED BY: Juan Carlos Pratt D.O.]] CC: Eladio Collins M.D. Lazorka, Jeremy D. PA-C Vangala, Satish K., MD Endcc: [~ rep ct add3]] THORACIC SPINE COMBO HISTORY: 77 years-old Female MS acute back pain which radiates into the left hip for approximately 3 weeks. History of multiple sclerosis. No reticular symptoms, injury or history of stroke. Concern for possible acute MS flare. COMPARISON: Lumbar spine MR 07/15/2017, CT abdomen and pelvis 06/19/2017, CT chest 06/04/2015 TECHNIQUE: Multiplanar multisequence MRI of the thoracic spine was obtained both with and without the use of 8 mL Gadavist FINDINGS: The large wezhs-eo-qgpb retail aide localizer images demonstrate mild cardiomegaly without acute abnormality identified involving the head, neck or chest. Dependent bibasilar opacities suggest atelectasis. There is no focal bone marrow edema, fracture, subluxation or marrow replacing process. Signal within the thoracic spinal cord is within normal limits. No abnormal cord enhancement identified. Conus medullaris terminates at the L1 level. Moderate multilevel endplate spurring, intervertebral disc space narrowing and facet arthropathy is noted. Posterior annular disc bulging is most pronounced at the T10-T11 and T12-L1 levels where there is flattening of the ventral thecal sac without significant central canal narrowing. At T10-T11 on the right there is moderate right foraminal narrowing secondary to combination of facet arthropathy and broad-based posterior disc bulge with posterior spondylitic spurring. At T11-T12 there is mild right foraminal stenosis. No additional significant central canal or foraminal narrowing identified throughout the thoracic spine. IMPRESSION: 1. Normal signal within the cord without abnormal signal abnormalities or enhancement to suggest multiple sclerosis. 2. Multilevel endplate spurring, intervertebral disc space narrowing and facet arthropathy as above, most pronounced at the T10-T11 and T12-L1 levels as detailed above. 3. No fracture, subluxation or focal bone marrow edema. Patient: LAURYN JO Address1: [address] [facility] Rec: [id number] [facility]: [id number] Zip: [place] [address] Date: 1940 Sex: F Room/Bed: Ref Phy: Chris Reis PA-C SC: RUBEN Blanton Phy: Report #: [id number] Karlee Phy: Chris Reis PA-C Test: LSWOC Admit Phy: Hod Carrier: EDGAR Interpreting Phy: Marty Hester M.D. Diagnosis: LEFT HIP PAIN Ordering Phy: Junito Alvarado M.D. Service Date: 07/15/17 Admit Date: 07/15/17 MNE: [id number] CONF: DICTATED BY: Marty Hester M.D.]] CC: Chris Reis PA-C, Theodore, M.D. Endcc: [~ rep ct add3]] MRI OF THE LUMBAR SPINE WITHOUT IV CONTRAST CLINICAL HISTORY: Lumbar radiculopathy. COMPARISON STUDY: Abdominal CT dated 06/19/2017. TECHNIQUE: MRI of the lumbar spine is performed utilizing various T1 and T2-weighted sequences in the axial and sagittal planes. IV contrast was not administered for this examination. FINDINGS: Marrow signal intensity is heterogeneous. Vertebral body height is maintained throughout the lumbar spine. Minimal anterolisthesis is noted at L4-L5. Alignment is otherwise preserved. Small anterior osteophytes are seen throughout. The transverse and spinous processes appear intact. There is no evidence of spondylolysis. No destructive bony lesion is seen. Chronic degenerative endplate change is seen at all lumbar levels. No significant marrow edema is identified. Intervertebral discs: Degenerative disc desiccation and mild loss of height is seen throughout the lumbar spine. Spinal cord: The partially imaged spinal cord is normal in morphology and signal intensity. The conus medullaris terminates at the level of L1. The nerve roots of the cauda equina are normal in morphology. T12-L1: There is a small posterior disc bulge seen on the lateral projection. The central canal is clear. L1-L2: There is a posterior disc bulge eccentric to the left. There is no significant acquired compromise of the central canal. The disc bulge causes left-sided subarticular stenosis and may impinge on the exiting left L1 and the transiting left L2 nerve roots. The neural foramina are patent. L2-L3: There is a small posterior disc bulge. In conjunction with hypertrophy of the ligamentum flavum, there is minimal acquired compromise of the central canal with a minimum AP diameter of 9.5 mm. There is mild bilateral subarticular stenosis. The neural foramina are patent. L3-L4: There is posterior disc bulge with annular fissure. There is no significant acquired compromise of the central canal at this level. There is mild bilateral subarticular stenosis. Facet arthropathy causes minimal left neural foraminal stenosis. L4-L5: There is broad-based posterior disc bulge with annular fissure eccentric to the right. In conjunction with hypertrophy of the ligamentum flavum, this causes moderate acquired compromise of the central canal with a minimum AP diameter of 6 mm. There is bilateral subarticular stenosis, right greater than left with possible impingement on the exiting right L4 and both transiting nerve roots. There is minimal tethering of the cauda equina at this level. Facet arthropathy causes mild bilateral neural foraminal stenosis. L5-S1: There is a posterior disc bulge with annular fissure. There is no significant acquired compromise of the central canal at this level. There is bilateral subarticular stenosis with possible impingement on the exiting bilateral L5 and the transiting bilateral nerve roots. Facet arthropathy causes moderate bilateral neural foraminal stenosis. Sacrum: The visual sacrum is normal in morphology and signal intensity. Soft tissues: There is fatty atrophy of the paraspinous and iliopsoas musculature. The kidneys demonstrate cortical atrophy. The retroperitoneal structures are grossly unremarkable but incompletely assessed. IMPRESSION: 1. Multilevel lumbosacral spondylosis as above with acquired compromise of the central canal that is greatest at L4-L5. See discussion for detailed [id number] analysis. 2. No destructive bony lesion is seen. Past Records Previous Records: none available for review [place] Drug Monitoring Program Search Results: patient reviewed within database Opioid Risk Assessment Risk assessment performed, moderate risk identified 1 practice noted to be prescribing fentanyl patches and a second practice is noted to be prescribing tramadol. She does have consistent use of the same pharmacy. She does predominantly utilize Medicare for insurance but does have private pay noted for tramadol Assessment 1. Multiple sclerosis 2. History of DVT on Coumadin with a current INR of 1.6 3. Multifactorial multilevel lumbar spinal stenosis worst at L4 to 5 4. Lumbar radiculitis 5. Opiate dependence Recommendations 1. Will speak with Dr. Kumari about the feasibility of holding her Coumadin during this hospitalization in preparation for an L4 to 5 interlaminar lumbar epidural steroid injection. I spoke with the patient about epidural steroid injections and she wishes for more conservative measures and would like to have injection performed prior to the hospital discharge. We will monitor her INR and once it is less than 1.3 with plan for epidural steroid injection at that time 2. Would not recommend increase in fentanyl patch at this time due to pain being predominantly neuropathic in character 3. Will discontinue Nucynta. Patient may utilize tramadol for when necessary breakthrough pain 4. We will increase gabapentin to 900 mg a.m. and daily at bedtime and 600 mg at lunch. 5. Consider addition of antidepressant in the future for adjunctive pain relief.
[2017-07-18 11:02] VITALS: BP 140/60
[2017-07-18 11:26] VITALS: Ht 152.4 cm; Wt 80.0 kg
[2017-07-18] MEDS: TRAMADOL HCL 50 MG TAB PO PRN ×2 (11:44→17:39)
--- NOTE | 2017-07-18 14:48 | Progress Note ---
Internal Med Progress Note Date of Service: Jul 18, 2017. Provider Documentation: SUBJECTIVE: Seen and examined at bedside' States back pain is controlled with meds No new complaints Denies Nausea, vomiting, chest pain, SOB, dizziness Patient prefers to be avoided any surgical procedure if able OBJECTIVE: Vital Signs-as noted below Physical Exam: General Appearance:Moderately built and nourished, no apparent distress Head: normocephalic, Atraumatic Eyes: normal inspection, EOMI, PERRL Neck: supple, Trachea midline Respiratory/Chest: Normal breath sounds, CTA Cardiovascular: S1, S2, No murmur Abdomen/GI:Soft, Non tender, Bowel sounds present Back: Paraspinal tenderness L region Extremities/Musculoskelatal:normal inspection, no edema Neurologic/Psych:AAOX3, LLE weakness Skin: normal color, warm Lab data as noted below. ASSESSMENT & PLAN: Patient is a 77yr female with a PMH of MS, DM II, HTN, HLD, CAD (s/p stents x 3 in 2008), hypothyroidism, h/o DVT (on coumadin) who presents with worsening lower back pain over the past few weeks. Lower back pain, L hip pain: Lumbar radiculitis Likely multifactorial, Lumbar radiculopathy, less likely MS exacerbation, chronic degenerative changes Patient states L LE weakness similar to previous MS flares Received high dose solu-medrol on presentation Continue prednisone taper per Neurology (Start 60mg today>>> taper down by 10mg till stop) Appreciate Neurology/Pain management Input Continue home dose Gilenya Lumbar spine MRI with multilevel lumbosacral spondylosis/ spinal stenosis MRI Brain, Cervical and Thoracic Spine as below Continue Morphine, Fentanyl patch, gabapentin, tramadol as per pain management DC Nucynta Monitor WBC while on Gilenya. Plan to hold Gilenya if leukopenia persists in next 2-3 weeks period. Appreciate Pain management Input Planned for L4 to 5 interlaminar lumbar epidural steroid injection once INR <1.3 Patient prefers to avoid any surgical procedure if able Hold coumadin today. Plan to resume as able May need rehab placement MARY on CKD III Hyperkalemia: Hold Lisinopril for now Cr better S/P IV fluids Monitor renal function Avoid nephrotoxic agents as able DM II: Hgb a1c of 8.1 in 2012 hgb a1c:9.0, likley from recent prednisone use Hold home agents BSG checks AC HS ISS, lantus CAD (s/p stents x 3): Asymptomatic Continue aspirin, statin Also on coumadin Hypothyroidism: Continue levothyroxine H/o DVT: On chronic anticoagulation with coumadin coumadin on hold for epidural steroid injection Monitor INR: subtherapeutic INR:1.6 today HTN: Stable, labile Hold Lisinopril secondary to MARY Nifedipine dose increased to 90mg daily DVT Ppx: on coumadin Code status: FULL PCP: Celi Disposition: May need rehab placement PROCEDURES: MRI Brain: 1. Within the right adame radiata there is a 5 x 4 mm area of mildly increased signal on the T2, FLAIR and diffusion-weighted sequences, with normal signal on the ADC map demonstrating mild ill-defined enhancement. This is a nonspecific finding with differential considerations including a subacute lacunar infarction or T2 shine through with an active demyelinating plaque. Correlate with patient presentation and history. 2. Atrophy with redemonstration of otherwise stable patchy and confluent T2/FLAIR signal abnormalities within the cerebral hemispheres bilaterally as above suggesting chronic microvascular ischemic changes and/or demyelinating disease. 3. Moderate left and small right mastoid effusions. MRI C-spine: 1. Normal signal within the cervical spinal cord without evidence of the demyelinating disease or abnormal enhancement. 2. No bone marrow or soft tissue edema, acute fracture or subluxation. 3. Multilevel discogenic degenerative changes and facet arthropathy as detailed level by level above with varying degrees of central canal and foraminal narrowing, most pronounced at the C4-C5 and C5-C6 levels. MRI T-spine: 1. Normal signal within the cord without abnormal signal abnormalities or enhancement to suggest multiple sclerosis. 2. Multilevel endplate spurring, intervertebral disc space narrowing and facet arthropathy as above, most pronounced at the T10-T11 and T12-L1 levels as detailed above. 3. No fracture, subluxation or focal bone marrow edema. MRI L-spine: 1. Multilevel lumbosacral spondylosis as above with acquired compromise of the central canal that is greatest at L4-L5. See discussion for detailed [id number] analysis. 2. No destructive bony lesion is seen. Vital Signs: Date Time Temp Pulse Resp B/P (MAP) Pulse Ox O2 Delivery O2 Flow Rate FiO2 07/18/17 15:48 36.9 60 18 106/67 (80) 94 Room Air 07/18/17 08:00 Room Air 07/18/17 07:18 36.4 55 16 145/54 (84) 92 07/18/17 00:00 Room Air 07/17/17 22:54 36.3 59 18 131/57 (81) 92 Room Air 07/17/17 20:00 Room Air Lab Results: Results Past 24 Hours Test 07/17/17 19:58 07/17/17 20:47 07/18/17 06:48 07/18/17 07:46 Range/Units Bedside Glucose 126 66 70-90 mg/dl Troponin I < 0.015 0-0.045 ng/ml White Blood Count 4.03 4.8-10.8 K/uL Red Blood Count 3.45 4.2-5.4 M/uL Hemoglobin 10.6 12.0-16.0 g/dL Hematocrit 32.7 37-47 % Mean Corpuscular Volume 94.8 80-100 fL Mean Corpuscular Hemoglobin 30.7 25-34 pg Mean Corpuscular Hemoglobin Concent 32.4 32-36 g/dl Platelet Count 214 130-400 K/uL Mean Platelet Volume 10.6 7.4-10.4 fL Neutrophils (%) (Auto) 72.5 % Lymphocytes (%) (Auto) 9.4 % Monocytes (%) (Auto) 15.4 % Eosinophils (%) (Auto) 2.5 % Basophils (%) (Auto) 0.2 % Neutrophils # (Auto) 2.92 1.4-6.5 K/uL Lymphocytes # (Auto) 0.38 1.2-3.4 K/uL Monocytes # (Auto) 0.62 0.11-0.59 K/uL Eosinophils # (Auto) 0.10 0-0.5 K/uL Basophils # (Auto) 0.01 0-0.2 K/uL RDW Standard Deviation 50.4 36.4-46.3 fL RDW Coefficient of Variation 14.6 11.5-14.5 % Immature Granulocyte % (Auto) 0.0 % Immature Granulocyte # (Auto) 0.00 0.00-0.02 K/uL Prothrombin Time 17.0 9.0-12.0 SECONDS Prothromb Time International Ratio 1.6 0.9-1.1 Sodium Level 142 136-145 mmol/L Potassium Level 5.1 3.5-5.1 mmol/L Chloride Level 104 98-107 mmol/L Carbon Dioxide Level 29 21-32 mmol/L Anion Gap 9.0 3-11 mmol/L Blood Urea Nitrogen 33 7-18 mg/dl Creatinine 1.55 0.60-1.20 mg/dl Est Creatinine Clear Calc Drug Dose 28.9 ml/min Estimated GFR () 37.3 Estimated GFR (Non- 32.2 BUN/Creatinine Ratio 21.1 10-20 Random Glucose 73 70-99 mg/dl Calcium Level 9.3 8.5-10.1 mg/dl Magnesium Level 2.4 1.8-2.4 mg/dl Test 07/18/17 08:11 07/18/17 11:30 07/18/17 16:04 Range/Units Bedside Glucose 101 164 106 70-90 mg/dl
[2017-07-18] MEDS ORDERED: NovoLIN-N (NPH) PER UNIT CHARGE SQ ONE (15:45)
[2017-07-18 15:48] VITALS: BP 106/67; PULSE 60; TEMP 36.9; O2SAT 94
[2017-07-18] MEDS ORDERED: HEPARIN SOD 5000 UNIT/0.5 ML CARP SQ ONE (16:00)
[2017-07-18] MEDS: ONDANSETRON INJ 2 MG/ML 2 ML VIAL IV PRN ×2 (17:37→23:39)
[2017-07-18] MEDS: ACETAMINOPHEN 325 MG TAB PO PRN (21:46)
[2017-07-18] MEDS: GABAPENTIN 300 MG CAP PO SCH (21:46)
[2017-07-18] MEDS: SIMVASTATIN 20 MG TAB PO SCH (21:47)
[2017-07-18] MEDS: DOCUSATE SODIUM 100 MG CAP PO SCH (21:48)
[2017-07-18 23:27] VITALS: BP 163/68; PULSE 70; TEMP 36.6; O2SAT 95
[2017-07-19] MEDS ORDERED: MoRPHine SULFATE 2 MG/ML CARP IV PRN (00:15)
[2017-07-19] MEDS: LEVOTHYROXINE 75 MCG TAB PO SCH (06:16)
[2017-07-19 06:17] LABS: COMPLETE YES; EOS % 0.2 %; IG% 0.2 %; LYMPH % 7.2 %; LYMPH ABS # 0.47 K/uL (1.2-3.4); MEAN CORPUSCULAR HEMOGLOBIN 30.7 pg (25-34); MEAN CORPUSCULAR HGB CONC 33.1 g/dl (32-36); MEAN PLATELET VOLUME 10.7 fL (7.4-10.4); MONO % 5.1 %; NEUT % 87.3 %; PLATELET COUNT 240 K/uL (130-400); RED BLOOD COUNT 3.87 M/uL (4.2-5.4); WHITE BLOOD COUNT 6.53 K/uL (4.8-10.8)
[2017-07-19 06:30] LABS: INR 1.5 (0.9-1.1); PROTHROMBIN TIME (PATIENT) 15.8 SECONDS (9.0-12.0)
[2017-07-19 06:56] LABS: BUN/CREATININE RATIO 18.4 (10-20); CALCIUM 9.3 mg/dl (8.5-10.1); CREATININE 1.56 mg/dl (0.60-1.20); MAGNESIUM 2.2 mg/dl (1.8-2.4); POTASSIUM 5.4 mmol/L (3.5-5.1)
[2017-07-19 07:03] VITALS: BP 158/76; PULSE 67; TEMP 36.8; O2SAT 92
[2017-07-19] MEDS: ASPIRIN 81 MG ECTAB PO SCH (08:11)
[2017-07-19] MEDS: GABAPENTIN 300 MG CAP PO SCH ×2 (08:11→21:26)
[2017-07-19] MEDS: TRAMADOL HCL 50 MG TAB PO PRN ×2 (08:11→18:09)
[2017-07-19] MEDS: DOCUSATE SODIUM 100 MG CAP PO SCH ×2 (08:11→21:25)
[2017-07-19] MEDS: RANITIDINE HCL 150 MG TAB PO SCH ×2 (08:11→21:25)
[2017-07-19] MEDS: FINGOLIMOD HCL 0.5 MG CAP PO SCH (08:11)
[2017-07-19] MEDS: METFORMIN HCL 500 MG TAB PO SCH (08:11)
[2017-07-19] MEDS: FoLIC ACID TAB 400 MCG TAB PO SCH (08:11)
[2017-07-19] MEDS: PIOGLITAZONE TAB 15 MG TAB PO SCH (08:11)
[2017-07-19] MEDS: NIFEdipine 30 MG CR TAB PO SCH (08:11)
[2017-07-19] MEDS: PANTOprazole SOD 40 MG TAB PO SCH (08:11)
[2017-07-19] MEDS: CYANOCOBALAMIN 500 MCG TAB (VIT B-12) PO SCH (08:11)
[2017-07-19] MEDS: ROPINIROLE HCL 1 MG TAB PO SCH ×2 (08:11→21:26)
[2017-07-19] MEDS: CHECK FENTANYL PATCH PLACEMENT SCH ×3 (08:18→23:44)
[2017-07-19] MEDS: INSULIN ASPART 100 UNITS/ML 3 ML PEN SC SCH ×4 (08:18→21:28)
--- NOTE | 2017-07-19 08:28 | Neurology Progress Notes ---
Neurology Progress Note Date of Service Jul 19, 2017. Subjective Patient is feeling little better this morning. She had increased pain last night requiring morphine. She is up sitting in the chair eating breakfast. She denies confusion, headaches, vision problems, or dizziness. Objective Date Time Temp Pulse Resp B/P (MAP) Pulse Ox O2 Delivery O2 Flow Rate FiO2 07/19/17 07:03 36.8 67 18 158/76 (103) 92 Room Air 07/19/17 01:46 Room Air 07/18/17 23:27 36.6 70 18 163/68 (99) 95 Room Air 07/18/17 16:10 Room Air 07/18/17 15:48 36.9 60 18 106/67 (80) 94 Room Air Last 24 Hours Test 07/18/17 11:30 07/18/17 16:04 07/18/17 20:37 07/19/17 05:54 Bedside Glucose 164 mg/dl 106 mg/dl 174 mg/dl White Blood Count 6.53 K/uL Red Blood Count 3.87 M/uL Hemoglobin 11.9 g/dL Hematocrit 36.0 % Mean Corpuscular Volume 93.0 fL Mean Corpuscular Hemoglobin 30.7 pg Mean Corpuscular Hemoglobin Concent 33.1 g/dl Platelet Count 240 K/uL Mean Platelet Volume 10.7 fL Neutrophils (%) (Auto) 87.3 % Lymphocytes (%) (Auto) 7.2 % Monocytes (%) (Auto) 5.1 % Eosinophils (%) (Auto) 0.2 % Basophils (%) (Auto) 0.0 % Neutrophils # (Auto) 5.71 K/uL Lymphocytes # (Auto) 0.47 K/uL Monocytes # (Auto) 0.33 K/uL Eosinophils # (Auto) 0.01 K/uL Basophils # (Auto) 0.00 K/uL RDW Standard Deviation 46.6 fL RDW Coefficient of Variation 13.7 % Immature Granulocyte % (Auto) 0.2 % Immature Granulocyte # (Auto) 0.01 K/uL Prothrombin Time 15.8 SECONDS Prothromb Time International Ratio 1.5 Sodium Level 138 mmol/L Potassium Level 5.4 mmol/L Chloride Level 102 mmol/L Carbon Dioxide Level 27 mmol/L Anion Gap 9.0 mmol/L Blood Urea Nitrogen 29 mg/dl Creatinine 1.56 mg/dl Est Creatinine Clear Calc Drug Dose 28.7 ml/min Estimated GFR () 37.0 Estimated GFR (Non- 31.9 BUN/Creatinine Ratio 18.4 Random Glucose 191 mg/dl Calcium Level 9.3 mg/dl Magnesium Level 2.2 mg/dl Exam: She is awake and alert. Speech is without aphasia or dysarthria. Mood and affect are normal appropriate. Thought processes seem intact. Extraocular eye muscles are intact without nystagmus. There is no facial droop. Tongue is midline. Stance sitting up in chair is normal. Coordination is normal in the arms. Strength is symmetrical in the arms. Leg strength is as per yesterday. Current Inpatient Medications Medications (Trade) Dose Ordered Sig/Love Route Start Time Stop Time Status Last Admin Dose Admin Miscellaneous (Iv Fluids Completed) 1 ea PRN PRN N/A 07/15/17 16:30 07/15/18 16:29 07/17/17 02:40 1 EA Acetaminophen (Tylenol Tab) 650 mg Q4H PRN PO 07/15/17 16:30 08/14/17 16:29 07/18/17 21:46 650 MG Ondansetron HCl (Zofran Inj) 4 mg Q6H PRN IV 07/15/17 16:30 08/14/17 16:29 07/18/17 23:39 4 MG Miscellaneous Information (Consult Glycemic Management Pharmacy) 1 ea UD PRN N/A 07/15/17 18:03 08/14/17 18:02 Insulin Aspart (novoLOG ASPART) SLIDING SCALE If C... ACHS SC 07/15/17 21:00 08/14/17 20:59 07/19/17 08:18 10 UNITS Glucose (Glucose 40% Gel) 15-30 GRAMS 15 GRAMS... UD PRN PO 07/15/17 17:00 08/14/17 16:59 Glucose (Glucose Chew Tab) 4-8 Tablets 4 Tabl... UD PRN PO 07/15/17 17:00 08/14/17 16:59 Dextrose (Dextrose 50% 50ML Syringe) 25-50ML OF 50% DW IV FOR... UD PRN IV 07/15/17 17:00 08/14/17 16:59 Glucagon (Glucagon Inj) 1 mg UD PRN SQ 07/15/17 17:00 08/14/17 16:59 Aspirin (Ecotrin Tab) 81 mg DAILY PO 07/16/17 08:00 08/15/17 07:59 07/19/17 08:11 81 MG Folic Acid (Folvite Tab) 400 mcg DAILY PO 07/16/17 08:00 08/15/17 07:59 07/19/17 08:11 400 MCG Levothyroxine Sodium (Synthroid Tab) 75 mcg DAILYBB PO 07/16/17 06:30 08/15/17 06:29 07/19/17 06:16 75 MCG Lisinopril (Zestril Tab) 20 mg DAILY PO 07/16/17 08:00 08/15/17 07:59 Future Hold 07/16/17 09:21 20 MG Pantoprazole Sodium (Protonix Tab) 40 mg DAILY PO 07/16/17 08:00 08/15/17 07:59 07/19/17 08:11 40 MG Ranitidine HCl (zANTac TAB) 150 mg BID PO 07/16/17 08:00 08/15/17 07:59 07/19/17 08:11 150 MG Ropinirole HCl (Requip Tab) 1 mg BID PO 07/16/17 08:00 08/15/17 07:59 07/19/17 08:11 1 MG Simvastatin (Zocor Tab) 20 mg HS PO 07/16/17 22:00 08/15/17 21:59 07/18/17 21:47 20 MG Tramadol HCl (Ultram Tab) 50 mg BID PRN PO 07/15/17 23:00 08/14/17 22:59 07/19/17 08:11 50 MG Warfarin Sodium (Coumadin Tab) 3 mg DAILY@1600 PO 07/16/17 16:00 08/15/17 15:59 Future Hold 07/17/17 15:59 3 MG Cyanocobalamin (Vitamin B-12 Tab) 1,000 mcg DAILY PO 07/16/17 08:00 08/15/17 07:59 07/19/17 08:11 1,000 MCG Miscellaneous Information (Check Fentanyl Patch Placement) 1 ea QS N/A 07/16/17 00:00 08/15/17 00:00 07/19/17 08:18 1 EA Magnesium Hydroxide (Milk Of Magnesia Susp) 30 ml Q12H PRN PO 07/16/17 00:45 08/15/17 00:44 07/17/17 02:28 30 ML Polyethylene (Miralax Powder Packet) 17 gm DAILY PRN PO 07/16/17 00:45 08/15/17 00:44 07/16/17 17:34 17 GM Nifedipine (Procardia Xl Tab) 90 mg DAILY PO 07/17/17 08:00 08/15/17 07:59 07/19/17 08:11 90 MG Hydralazine HCl (HydrALAZINE INJ) 10 mg Q6H PRN IV. 07/16/17 14:00 08/15/17 13:59 Gadobutrol (Gadavist) 8 mmol UD PRN IV 07/17/17 11:45 07/21/17 11:44 Fentanyl (Duragesic Patch) 25 mcg Q3D@1200 TD 07/17/17 12:00 07/31/17 11:59 07/17/17 12:50 25 MCG Miscellaneous (Fentanyl Patch Remove & Waste) 1 ea Q3D@1200 N/A 07/17/17 12:30 08/16/17 12:29 07/17/17 12:44 1 EA Metformin HCl (Glucophage Tab) 500 mg DAILY PO 07/18/17 08:00 08/17/17 07:59 07/19/17 08:11 500 MG Pioglitazone HCl (ACTos TAB) 15 mg DAILY PO 07/18/17 08:00 08/17/17 07:59 07/19/17 08:11 15 MG Gabapentin (Neurontin Cap) 900 mg BID PO 07/18/17 20:00 08/17/17 19:59 07/19/17 08:11 900 MG Morphine Sulfate (MoRPHine SULFATE INJ) 2 mg Q8H PRN IV 07/18/17 09:00 08/01/17 08:59 07/18/17 18:36 2 MG Gabapentin (Neurontin Tab) 600 mg QDL PO 07/18/17 12:00 08/17/17 11:59 07/18/17 11:44 600 MG Docusate Sodium (coLACE CAP) 100 mg BID PO 07/18/17 20:00 08/17/17 19:59 07/19/17 08:11 100 MG Prednisone (PredniSONE TAB) 50 mg ONE ONCE PO 07/20/17 14:00 07/20/17 14:01 Impression 1. The acute low back and left lower extremity pain She has known lumbar spinal stenosis and suspected left leg radiculopathy likely L5 or S1. MRI shows significant spinal stenosis around the L5 level. She received adequate pain relief last night. 2. Multiple sclerosis. She has been fairly stable on Gilenya. This will be kept the same. She has 1 new lesion of a subacute nature on the right. I am not sure this correlates with any clinical symptomatology. 3. Bilateral essential tremor, significant, help somewhat with propranolol. Plan 1. Continue the tapering prednisone course, decreasing by 10 mg daily until off. Take with food and watch glucose 2. Continue physical therapy. Consider [facility] stay 3. Consider lumbar injection by Pain Management. This should give her considerable help. We are trying to avoid surgery if possible. 4. I will defer all treatment of her pain to Pain Management for now. I will follow.
[2017-07-19] MEDS ORDERED: FENTANYL PATCH REMOVE & WASTE SCH (09:00)
[2017-07-19] MEDS ORDERED: PHYTONADIONE 5 MG TAB PO ONE (10:00)
[2017-07-19] MEDS ORDERED: INSULIN HUMAN NPH SC ONE (11:00)
--- NOTE | 2017-07-19 11:01 | Pharmacy Progress Note ---
Glycemic Control Progress Note Date of Service Jul 19, 2017. Scope Glycemic Pharmacist consulted for glycemic control to write orders per [facility] inpatient glycemic control protocol. Objective Accuchecks BSG (last 24hrs): Test 07/18/17 11:30 07/18/17 16:04 07/18/17 20:37 07/19/17 05:54 Bedside Glucose 164 mg/dl (70-90) 106 mg/dl (70-90) 174 mg/dl (70-90) Random Glucose 191 mg/dl (70-99) Test 07/19/17 07:30 Bedside Glucose 164 mg/dl (70-90) HbA1c: Test 07/16/17 07:27 Hemoglobin A1c 9.0 % (4.5-5.6) H Recent Pertinent Medications The patient is currently receiving: * Basal insulin: NPH 32 units x 1 last evening (to coincide with prednisone dose) * Correctional Insulin: Novolog Correction per scale ACHS Goal Range: Low 110 mg/dL - High 140 mg/dL Correction Factor: 30 mg/dL/unit * Prandial insulin: Per carb ratio of 1 unit per 10 grams CHO consumed * Oral Agents: Metformin + Actos Outpatient Anti-Diabetic Meds Oral Agents Assessment & Plan ASSESSMENT: * See progress note from 07/18 for more background info, in short: * Pt receiving SQ basal bolus insulin regimen for hyperglycemia secondary to baseline DM (outpatient regimen on hold), steroids * Patient is currently receiving an average of 50 units of insulin per day * BSGs ranging 106 - 191 mg/dl over the past 24hrs * NPH dose (0.4 units/kg) was ordered yesterday afternoon when prednisone dose was ordered - this seemed to work well to cover BSGs * I spoke with Dr. Figueroa this AM as no prednisone was ordered today but a 50 mg dose was ordered tomorrow * A prednisone taper has been ordered as per neuro's recs with 50 mg to start today * Will plan to continue utilizing NPH to cover the steroid dose (0.4 units/kg for doses 40 mg or greater) * I had tightened the CF/CR this AM due to a slightly higher fasting (from the prednisone dose given later) but will plan to loosen back to 30 and 10 now that the NPH has been ordered PLAN FOR INPATIENT GLYCEMIC CONTROL: * NPH 32 units x 1 to coincide with prednisone dose * Will continue to order one time doses of NPH to coincide with prednisone doses * CF tightened to 20 this AM, loosen back to 30 with lunch * CR tightened to 7 this AM, loosen back to 10 with lunch * Will place metformin on hold tomorrow AM since patient will be NPO for an epidural injection and CrCl borderline for holding altogether RECOMMENDATIONS FOR DISCHARGE: * A1c 9%, above goal * May consider initiating a single daily dose of basal insulin or a GLP-1 agent on discharge or have patient f/u with outpatient provider to discuss options Thank you.
--- NOTE | 2017-07-19 11:10 | Pain Clinic Return Visit ---
Pain Clinic Return Visit Date of Service Jul 19, 2017. Reason For Visit 77-year-old female with long-standing history of low back pain and fairly recent onset of about 3 months worth of left lower extremity radicular symptoms down her L4 dermatome. She states that her pain continues to be worse with ambulation and activities of daily living and slightly improved with rest. She had an exacerbation of pain yesterday requiring morphine 2 mg. She denies any bowel or bladder incontinence motor weakness foot drop or any falls. She denies any night sweats or fever or chills. She reports the pain ranges between 3 and 10 out of 10 currently 4 out of 10 characterizes sharp shooting and radiating down her left lower extremity predominantly. She also notes some pain over her proximal left buttock with some radiation into left hip the same as yesterday. Home Medications Scheduled Aspirin (Aspirin Ec), 81 MG PO DAILY Biotin (Biotin 5000), 1 CAP PO QAM Cholecalciferol (D3-50), 1 CAP PO WK Cyanocobalamin (Vitamin B12), 1 TAB PO DAILY Fentanyl (Fentanyl), 1 PATCH TD [id number] Fingolimod Hcl (Gilenya), 1 CAP PO DAILY Folic Acid (Folvite), 400 MCG PO DAILY Gabapentin (Gabapentin), 1 TAB PO BID Glipizide (Glipizide), 1 TAB PO BID Levothyroxine Sodium (Levothyroxine Sodium), 1 TAB PO DAILY Lisinopril (Prinivil), 1 TAB PO DAILY Metformin HCl (Metformin HCl), 1 TAB PO DAILY Nifedipine (Procardia Xl Ext Rel), 1 TAB PO DAILY Pantoprazole (Pantoprazole Sodium), 1 TAB PO DAILY Pioglitazone Hcl (Pioglitazone Hcl), 1 TAB PO DAILY Ranitidine HCl (Ranitidine HCl), 1 TAB PO BID Ropinirole HCl (Ropinirole HCl), 1 TAB PO BID Simvastatin (Zocor), 1 TAB PO HS Tramadol HCl (Tramadol HCl), 1 TAB PO PRN Valerian (Valeriana Officinali (Valerian Root), 1 CAP PO HS Warfarin Sodium (Warfarin Sodium), 1 TAB PO UD Scheduled PRN Nitroglycerin (Nitroglycerin), for Chest Pain Allergies Coded Allergies: Harrison Blue FCF (Verified Allergy, Unknown, UNKNOWN, 06/19/17) Dimethyl Fumarate (Verified Allergy, Unknown, UNKNOWN, 06/19/17) Medications & Allergies Reconciled: Yes Review of Systems 10 point review of systems was otherwise negative aside from HPI Objective Date Time Temp Pulse Resp B/P (MAP) Pulse Ox O2 Delivery O2 Flow Rate FiO2 07/19/17 08:00 Room Air 07/19/17 07:03 36.8 67 18 158/76 (103) 92 Room Air 07/19/17 01:46 Room Air 07/18/17 23:27 36.6 70 18 163/68 (99) 95 Room Air 07/18/17 16:10 Room Air 07/18/17 15:48 36.9 60 18 106/67 (80) 94 Room Air Height 5 feet, 0.00 inches. Weight 80.000 (Kilograms) 176 (Pounds) Physical Exam GENERAL: 77-year-old female who is awake, alert and oriented. Appears well developed. Is in no distress at the present time. She is petite and overweight and significantly deconditioned PSYCHIATRIC: Demonstrates normal and clear sensorium. Mood and affect are appropriate. Short-term and long-term memory is intact. HEAD AND NECK: No obvious trauma. Demonstrates full range of motion of the cervical spine. No lymphadenopathy is noted. Trachea midline. EARS, EYES AND NOSE: Mucous membranes pink and moist. No mucosal lesions noted. Tongue midline. LUNGS: No audible wheezes or rhonchi. Normal chest excursion. CARDIAC: Regular rate and rhythm. ABDOMEN: Normal bowel sounds. Soft nontender. No organomegaly appreciated. Obese BACK: Inspection of the lumbar spine demonstrates slight loss of lumbar lordosis. No lesions are noted in the lumbar spine region. Provocative testing of the facet joints bilaterally is negative. She is tender over the left greater trochanter nontender over the right. She is exquisitely tender over her left sacroiliac joint nontender over the right. She has a negative Fabere bilaterally negative Gaenslen's bilaterally. No myofascial tenderness or trigger points identifiable in the paraspinous musculature. Neurologically, straight leg raising is negative bilaterally past 90 and no changes noted Achilles stretch. She has decreased range of motion in all planes of her lumbar spine. NEUROLOGICAL: Cranial nerves II through XII grossly intact. No gross sensory or motor deficits noted in the upper extremity. Sensation and motor strength in the lower extremity are symmetrical without deficit. No pathologic reflexes are noted in the lower extremities. Gait is [unremarkable]. Reflexes: patellar Reflex L [+ 1] R [+ 1] Achilles Reflex L [+ 1] R [+ 1] Laboratory Laboratory Findings Test 06/19/17 08:00 06/19/17 08:45 07/15/17 13:00 07/16/17 07:27 Range/Units Chemistry Specimen Hemolysis Urine Color YELLOW Urine Appearance CLEAR CLEAR Urine pH 5.0 4.5-7.5 Urine Specific [place] 1.015 1.000-1.030 Urine Protein NEG NEG Urine Glucose (UA) NEG NEG Urine Ketones NEG NEG Urine Occult Blood NEG NEG Urine Nitrite NEG NEG Urine Bilirubin NEG NEG Urine Urobilinogen NEG NEG Urine Leukocyte Esterase TRACE H NEG Urine WBC (Auto) 1-5 0-5 /hpf Urine RBC (Auto) 0-4 0-4 /hpf Urine Hyaline Casts (Auto) 1-5 0-5 /lpf Urine Epithelial Cells (Auto) >30 H 0-5 /lpf Urine Bacteria (Auto) NEG NEG Erythrocyte Sedimentation Rate 43 H 0-21 mm/hr Total Bilirubin 0.2 0.2-1 mg/dl Aspartate Amino Transferase (AST) 21 15-37 U/L Alanine Aminotransferase (ALT) 33 12-78 U/L Alkaline Phosphatase 68 45-117 U/L Total Creatine Kinase 62 26-192 U/L Total Protein 7.1 6.4-8.2 gm/dl Albumin 3.2 L 3.4-5.0 gm/dl Globulin 3.9 2.5-4.0 gm/dl Albumin/Globulin Ratio 0.8 L 0.9-2 Estimated Average Glucose 212 mg/dl Hemoglobin A1c 9.0 H 4.5-5.6 % Test 07/17/17 20:47 07/19/17 05:54 07/19/17 07:30 Range/Units Troponin I < 0.015 0-0.045 ng/ml White Blood Count 6.53 4.8-10.8 K/uL Red Blood Count 3.87 L 4.2-5.4 M/uL Hemoglobin 11.9 L 12.0-16.0 g/dL Hematocrit 36.0 L 37-47 % Mean Corpuscular Volume 93.0 80-100 fL Mean Corpuscular Hemoglobin 30.7 25-34 pg Mean Corpuscular Hemoglobin Concent 33.1 32-36 g/dl Platelet Count 240 130-400 K/uL Mean Platelet Volume 10.7 H 7.4-10.4 fL Neutrophils (%) (Auto) 87.3 % Lymphocytes (%) (Auto) 7.2 % Monocytes (%) (Auto) 5.1 % Eosinophils (%) (Auto) 0.2 % Basophils (%) (Auto) 0.0 % Neutrophils # (Auto) 5.71 1.4-6.5 K/uL Lymphocytes # (Auto) 0.47 L 1.2-3.4 K/uL Monocytes # (Auto) 0.33 0.11-0.59 K/uL Eosinophils # (Auto) 0.01 0-0.5 K/uL Basophils # (Auto) 0.00 0-0.2 K/uL RDW Standard Deviation 46.6 H 36.4-46.3 fL RDW Coefficient of Variation 13.7 11.5-14.5 % Immature Granulocyte % (Auto) 0.2 % Immature Granulocyte # (Auto) 0.01 0.00-0.02 K/uL Prothrombin Time 15.8 H 9.0-12.0 SECONDS Prothrombin Time INR 1.5 H 0.9-1.1 Sodium Level 138 136-145 mmol/L Potassium Level 5.4 H 3.5-5.1 mmol/L Chloride Level 102 98-107 mmol/L Carbon Dioxide Level 27 21-32 mmol/L Anion Gap 9.0 3-11 mmol/L Blood Urea Nitrogen 29 H 7-18 mg/dl Creatinine 1.56 H 0.60-1.20 mg/dl Est Creatinine Clear Calc Drug Dose 28.7 ml/min Estimated GFR () 37.0 Estimated GFR (Non- 31.9 BUN/Creatinine Ratio 18.4 10-20 Random Glucose 191 H 70-99 mg/dl Calcium Level 9.3 8.5-10.1 mg/dl Magnesium Level 2.2 1.8-2.4 mg/dl POC Glucose 164 H 70-90 mg/dl Assessment 1. Multiple sclerosis 2. History of DVT on Coumadin with a current INR of 1.6 3. Multifactorial multilevel lumbar spinal stenosis worst at L4 to 5 4. Lumbar radiculitis 5. Opiate dependence Recommendations 1. We'll give her a dose of vitamin K today to ensure her INR is acceptable for a L4 to 5 interlaminar lumbar epidural steroid injection tomorrow at 8 AM. Consent was signed and orders were placed to make her nothing by mouth and for radiology fluoroscopic guidance 2. Would not recommend increase in fentanyl patch at this time due to pain being predominantly neuropathic in character 3. PT and OT 4. Continue gabapentin at 900 mg a.m. and daily at bedtime and 600 mg at lunch. 5. Consider addition of antidepressant in the future for adjunctive pain relief.
[2017-07-19] MEDS: GABAPENTIN 600 MG TAB PO SCH (12:27)
[2017-07-19] MEDS: MoRPHine SULFATE 2 MG/ML CARP IV PRN (12:28)
[2017-07-19] MEDS ORDERED: LIDODERM (LIDOCAINE) PATCH 5% TD ONE (13:00)
[2017-07-19 15:26] VITALS: BP 139/73; PULSE 62; TEMP 36.6; O2SAT 92
--- NOTE | 2017-07-19 16:28 | Progress Note ---
Medicine Progress Note Date & Time of Visit: Jul 19, 2017 at 16:02. Subjective patient seen sitting at the edge of the bed, not in distress very pleasant states back pain is about the same denies leg weakness/paresthesias no other symptoms Objective Last 8 Hrs Date Time Temp Pulse Resp B/P (MAP) Pulse Ox O2 Delivery O2 Flow Rate FiO2 07/19/17 15:26 36.6 62 20 139/73 (95) 92 Room Air Physical Exam: General- oriented x 3, not in distress, speaks in sentences with no effort Head- atraumatic Eyes- PERRL, EOMI, anicteric ENT- oropharynx clear Neck- supple, no JVD, no adenopathy, no thyromegaly Lungs- clear breath sounds bilaterally, no rales/wheezes Heart- regular rhythm; no murmur, normal rate Abdomen- normal bowel sounds, soft, nontender Extremities- no pretibial edema, no calf tenderness; peripheral pulses intact Back- (+) tenderness on the low back Neuro- alert, oriented x 3; no gross focal deficits Skin- warm & dry Laboratory Results: Last 24 Hours Test 07/18/17 16:04 07/18/17 20:37 07/19/17 05:54 07/19/17 07:30 Bedside Glucose 106 mg/dl 174 mg/dl 164 mg/dl White Blood Count 6.53 K/uL Red Blood Count 3.87 M/uL Hemoglobin 11.9 g/dL Hematocrit 36.0 % Mean Corpuscular Volume 93.0 fL Mean Corpuscular Hemoglobin 30.7 pg Mean Corpuscular Hemoglobin Concent 33.1 g/dl Platelet Count 240 K/uL Mean Platelet Volume 10.7 fL Neutrophils (%) (Auto) 87.3 % Lymphocytes (%) (Auto) 7.2 % Monocytes (%) (Auto) 5.1 % Eosinophils (%) (Auto) 0.2 % Basophils (%) (Auto) 0.0 % Neutrophils # (Auto) 5.71 K/uL Lymphocytes # (Auto) 0.47 K/uL Monocytes # (Auto) 0.33 K/uL Eosinophils # (Auto) 0.01 K/uL Basophils # (Auto) 0.00 K/uL RDW Standard Deviation 46.6 fL RDW Coefficient of Variation 13.7 % Immature Granulocyte % (Auto) 0.2 % Immature Granulocyte # (Auto) 0.01 K/uL Prothrombin Time 15.8 SECONDS Prothromb Time International Ratio 1.5 Sodium Level 138 mmol/L Potassium Level 5.4 mmol/L Chloride Level 102 mmol/L Carbon Dioxide Level 27 mmol/L Anion Gap 9.0 mmol/L Blood Urea Nitrogen 29 mg/dl Creatinine 1.56 mg/dl Est Creatinine Clear Calc Drug Dose 28.7 ml/min Estimated GFR () 37.0 Estimated GFR (Non- 31.9 BUN/Creatinine Ratio 18.4 Random Glucose 191 mg/dl Calcium Level 9.3 mg/dl Magnesium Level 2.2 mg/dl Test 07/19/17 11:19 07/19/17 11:54 Bedside Glucose 191 mg/dl Potassium Level 4.6 mmol/L Assessment & Plan Patient is a 77yr female with a PMH of MS, DM II, HTN, HLD, CAD (s/p stents x 3 in 2008), hypothyroidism, h/o DVT (on coumadin) who presents with worsening lower back pain over the past few weeks. LOW BACK PAIN SECONDARY, LUMBAR SPINE STENOSIS, RADICULOPATHY Lumbar spine MRI with multilevel lumbosacral spondylosis/ spinal stenosis -- Pain Management consulted -- on Fentanyl Patch, Gapabentin, Tramadol, PRN Morphine -- for Epidural Steroid Injection tomorrow AM Vit K given, ff up INR ASA held MARY on CKD III Hyperkalemia: Hold Lisinopril for now Cr better, likely this is her new baseline -- monitor crea DM II: Hgb a1c of 8.1 in 2012 hgb a1c:9.0, likley from recent prednisone use Hold home agents BSG checks AC HS ISS, lantus CAD (s/p stents x 3): Asymptomatic Continue aspirin, statin Also on coumadin Hypothyroidism: Continue levothyroxine H/o DVT: On chronic anticoagulation with coumadin coumadin on hold for epidural steroid injection Monitor INR: subtherapeutic -- Vit K given, ff up INR HTN: Stable, labile Hold Lisinopril secondary to MARY Nifedipine dose increased to 90mg daily DVT Ppx: on coumadin Code status: FULL PCP: Celi Disposition: May need rehab placement Current Inpatient Medications: Current Inpatient Medications Medications (Trade) Dose Ordered Sig/Love Route Start Time Stop Time Status Last Admin Dose Admin Miscellaneous (Iv Fluids Completed) 1 ea PRN PRN N/A 07/15/17 16:30 07/15/18 16:29 07/17/17 02:40 1 EA Acetaminophen (Tylenol Tab) 650 mg Q4H PRN PO 07/15/17 16:30 08/14/17 16:29 07/18/17 21:46 650 MG Ondansetron HCl (Zofran Inj) 4 mg Q6H PRN IV 07/15/17 16:30 08/14/17 16:29 07/18/17 23:39 4 MG Miscellaneous Information (Consult Glycemic Management Pharmacy) 1 ea UD PRN N/A 07/15/17 18:03 08/14/17 18:02 Insulin Aspart (novoLOG ASPART) SLIDING SCALE If C... ACHS SC 07/15/17 21:00 08/14/17 20:59 07/19/17 12:31 6 UNITS Glucose (Glucose 40% Gel) 15-30 GRAMS 15 GRAMS... UD PRN PO 07/15/17 17:00 08/14/17 16:59 Glucose (Glucose Chew Tab) 4-8 Tablets 4 Tabl... UD PRN PO 07/15/17 17:00 08/14/17 16:59 Dextrose (Dextrose 50% 50ML Syringe) 25-50ML OF 50% DW IV FOR... UD PRN IV 07/15/17 17:00 08/14/17 16:59 Glucagon (Glucagon Inj) 1 mg UD PRN SQ 07/15/17 17:00 08/14/17 16:59 Folic Acid (Folvite Tab) 400 mcg DAILY PO 07/16/17 08:00 08/15/17 07:59 07/19/17 08:11 400 MCG Levothyroxine Sodium (Synthroid Tab) 75 mcg DAILYBB PO 07/16/17 06:30 08/15/17 06:29 07/19/17 06:16 75 MCG Lisinopril (Zestril Tab) 20 mg DAILY PO 07/16/17 08:00 08/15/17 07:59 Future Hold 07/16/17 09:21 20 MG Pantoprazole Sodium (Protonix Tab) 40 mg DAILY PO 07/16/17 08:00 08/15/17 07:59 07/19/17 08:11 40 MG Ranitidine HCl (zANTac TAB) 150 mg BID PO 07/16/17 08:00 08/15/17 07:59 07/19/17 08:11 150 MG Ropinirole HCl (Requip Tab) 1 mg BID PO 07/16/17 08:00 08/15/17 07:59 07/19/17 08:11 1 MG Simvastatin (Zocor Tab) 20 mg HS PO 07/16/17 22:00 08/15/17 21:59 07/18/17 21:47 20 MG Tramadol HCl (Ultram Tab) 50 mg BID PRN PO 07/15/17 23:00 08/14/17 22:59 07/19/17 08:11 50 MG Warfarin Sodium (Coumadin Tab) 3 mg DAILY@1600 PO 07/16/17 16:00 08/15/17 15:59 Future Hold 07/17/17 15:59 3 MG Cyanocobalamin (Vitamin B-12 Tab) 1,000 mcg DAILY PO 07/16/17 08:00 08/15/17 07:59 07/19/17 08:11 1,000 MCG Miscellaneous Information (Check Fentanyl Patch Placement) 1 ea QS N/A 07/16/17 00:00 08/15/17 00:00 07/19/17 15:43 1 EA Magnesium Hydroxide (Milk Of Magnesia Susp) 30 ml Q12H PRN PO 07/16/17 00:45 08/15/17 00:44 07/17/17 02:28 30 ML Polyethylene (Miralax Powder Packet) 17 gm DAILY PRN PO 07/16/17 00:45 08/15/17 00:44 07/16/17 17:34 17 GM Nifedipine (Procardia Xl Tab) 90 mg DAILY PO 07/17/17 08:00 08/15/17 07:59 07/19/17 08:11 90 MG Hydralazine HCl (HydrALAZINE INJ) 10 mg Q6H PRN IV. 07/16/17 14:00 08/15/17 13:59 Gadobutrol (Gadavist) 8 mmol UD PRN IV 07/17/17 11:45 07/21/17 11:44 Fentanyl (Duragesic Patch) 25 mcg Q3D@1200 TD 07/17/17 12:00 07/31/17 11:59 07/17/17 12:50 25 MCG Miscellaneous (Fentanyl Patch Remove & Waste) 1 ea Q3D@1200 N/A 07/17/17 12:30 08/16/17 12:29 07/17/17 12:44 1 EA Metformin HCl (Glucophage Tab) 500 mg DAILY PO 07/18/17 08:00 08/17/17 07:59 Future hold 07/19/17 08:11 500 MG Pioglitazone HCl (ACTos TAB) 15 mg DAILY PO 07/18/17 08:00 08/17/17 07:59 07/19/17 08:11 15 MG Gabapentin (Neurontin Cap) 900 mg BID PO 07/18/17 20:00 08/17/17 19:59 07/19/17 08:11 900 MG Morphine Sulfate (MoRPHine SULFATE INJ) 2 mg Q8H PRN IV 07/18/17 09:00 08/01/17 08:59 07/19/17 12:28 2 MG Gabapentin (Neurontin Tab) 600 mg QDL PO 07/18/17 12:00 08/17/17 11:59 07/19/17 12:27 600 MG Docusate Sodium (coLACE CAP) 100 mg BID PO 07/18/17 20:00 08/17/17 19:59 07/19/17 08:11 100 MG Prednisone (PredniSONE TAB) 50 mg Taper QAM PO 07/19/17 11:00 07/24/17 10:59 07/19/17 12:27 50 MG Lidocaine (Lidoderm Patch 5%) 1 patch QAM TD 07/20/17 08:00 08/19/17 07:59 Miscellaneous (Remove Lidoderm Patch) 1 ea DAILY@21 N/A 07/19/17 21:00 08/18/17 20:59
[2017-07-19] MEDS: ONDANSETRON INJ 2 MG/ML 2 ML VIAL IV PRN (18:08)
[2017-07-19] MEDS: SIMVASTATIN 20 MG TAB PO SCH (21:25)
[2017-07-19 23:56] VITALS: BP 152/84; PULSE 64; TEMP 36.7; O2SAT 92
[2017-07-20] VITALS (7 sets, daily range): BP systolic 125–175; BP diastolic 67–87; PULSE 57–67; TEMP 36.3–37; O2SAT 94–98
[2017-07-20] MEDS ORDERED: INSULIN ASPART 100 UNITS/ML 3 ML PEN SC SCH (02:00)
[2017-07-20] MEDS: MoRPHine SULFATE 2 MG/ML CARP IV PRN ×3 (04:08→15:42)
[2017-07-20 05:18] LABS: INR 1.1 (0.9-1.1); PROTHROMBIN TIME (PATIENT) 11.7 SECONDS (9.0-12.0)
[2017-07-20 05:33] LABS: BUN/CREATININE RATIO 18.3 (10-20); CALCIUM 9.8 mg/dl (8.5-10.1); CREATININE 1.48 mg/dl (0.60-1.20); POTASSIUM 4.7 mmol/L (3.5-5.1)
[2017-07-20] MEDS: LEVOTHYROXINE 75 MCG TAB PO SCH (05:47)
[2017-07-20] MEDS ORDERED: TRIAMCINOLONE ACET 40 MG/ML VIAL ONE ×2 (08:09→09:18)
[2017-07-20] MEDS: INSULIN ASPART 100 UNITS/ML 3 ML PEN SC SCH ×4 (09:32→20:44)
[2017-07-20] MEDS: CHECK FENTANYL PATCH PLACEMENT SCH ×2 (09:32→15:36)
[2017-07-20] MEDS: FoLIC ACID TAB 400 MCG TAB PO SCH (09:37)
[2017-07-20] MEDS: FINGOLIMOD HCL 0.5 MG CAP PO SCH (09:37)
[2017-07-20] MEDS: DOCUSATE SODIUM 100 MG CAP PO SCH (09:37)
[2017-07-20] MEDS: ROPINIROLE HCL 1 MG TAB PO SCH ×2 (09:37→20:38)
[2017-07-20] MEDS: PANTOprazole SOD 40 MG TAB PO SCH (09:37)
[2017-07-20] MEDS: PIOGLITAZONE TAB 15 MG TAB PO SCH (09:37)
[2017-07-20] MEDS: GABAPENTIN 300 MG CAP PO SCH ×2 (09:37→20:37)
[2017-07-20] MEDS: NIFEdipine 30 MG CR TAB PO SCH (09:37)
[2017-07-20] MEDS: RANITIDINE HCL 150 MG TAB PO SCH ×2 (09:38→20:38)
[2017-07-20] MEDS: CYANOCOBALAMIN 500 MCG TAB (VIT B-12) PO SCH (09:38)
[2017-07-20] MEDS: ONDANSETRON INJ 2 MG/ML 2 ML VIAL IV PRN ×2 (09:42→15:42)
[2017-07-20] MEDS ORDERED: NURSING VERBAL MED ORDER ONE (09:45)
[2017-07-20] MEDS ORDERED: MIDAZOLAM HCL 1 MG/ML 2ML VIAL ONE ×2 (11:31→12:10)
[2017-07-20] MEDS ORDERED: SODIUM CHLORIDE 0.9% PF 50 ML VIAL ONE (11:33)
[2017-07-20] MEDS ORDERED: LIDOCAINE HCL 1% 20 ML VIAL ONE (11:33)
[2017-07-20] MEDS ORDERED: INSULIN HUMAN NPH SC ONE (11:45)
--- NOTE | 2017-07-20 11:47 | Pain Management Progress Note ---
Pain Management Progress Note Date of Service Jul 20, 2017. Subjective Continues to experience her typical left lower extremity radicular pain today. He reports no changes in symptoms. She consents to proceed with an intralaminar epidural steroid injection today. Her INR is 1.1 this morning. Objective Vital Signs: Last Vital Signs Documentation Date Time Temp Pulse Resp B/P (MAP) Pulse Ox O2 Delivery O2 Flow Rate FiO2 07/20/17 09:34 67 164/87 (112) 07/20/17 07:40 Room Air 07/20/17 06:54 36.7 18 97 07/16/17 00:13 1.0 Physical Exam: Porsha is awake and alert. She appears to be acute discomfort. She is extremely anxious. She continues to have positive straight-leg raising on the left side. Laboratory Laboratory Findings 07/19/17 05:54 Red Blood Count 3.87 L, Mean Corpuscular Volume 93.0, Mean Corpuscular Hemoglobin 30.7, Mean Corpuscular Hemoglobin Concent 33.1, Mean Platelet Volume 10.7 H, Neutrophils (%) (Auto) 87.3, Lymphocytes (%) (Auto) 7.2, Monocytes (%) ( Auto) 5.1, Eosinophils (%) (Auto) 0.2, Basophils (%) (Auto) 0.0, Neutrophils # ( Auto) 5.71, Lymphocytes # (Auto) 0.47 L, Monocytes # (Auto) 0.33, Eosinophils # (Auto) 0.01, Basophils # (Auto) 0.00 Assessment 1. Lumbar spinal stenosis from multifactorial reasons with left lower extremity radicular pain. 2. Anxiety. Recommendations 1. Proceed with interlaminar or transforaminal epidural steroid injection today.
[2017-07-20] MEDS ORDERED: FENTANYL CITRATE INJ 50 MCG/1 ML 2 ML VIAL ONE (12:05)
[2017-07-20] MEDS ORDERED: ATROPINE SULFATE 0.1 MG/ML 5ML SYR IV PRN (12:30)
[2017-07-20] MEDS ORDERED: FENTANYL CITRATE INJ 50 MCG/1 ML 2 ML VIAL IV PRN (12:30)
[2017-07-20] MEDS ORDERED: EpHEDrine SULFATE INJ 50 MG/ML AMP IV PRN (12:30)
[2017-07-20] MEDS ORDERED: MEPERIDINE HCL 25 MG/ML CARP IV PRN (12:30)
[2017-07-20] MEDS ORDERED: HYDROmorphone INJ 1 MG/ML SYR IV PRN (12:30)
[2017-07-20] MEDS ORDERED: ONDANSETRON INJ 2 MG/ML 2 ML VIAL IV PRN (12:30)
[2017-07-20] MEDS ORDERED: LABETALOL HCL IV 5 MG/ML 20ML IV PRN (12:30)
--- NOTE | 2017-07-20 12:46 | [facility] Operative Report ---
Operative Report Operative Date Jul 20, 2017. Pre-Operative Diagnosis Lumbar spinal stenosis Post-Operative Diagnosis same Procedure(s) Performed Left L4/L5 Lumbar Epidural steroid Injection Surgeon Dr Durán Academic Success Coordinator Surgeon(s) none Estimated Blood Loss o ml Findings See below Specimens none Anesthesia monitored anesthesia care Disposition Recovery Room / PACU Indications Lumbar spinal stenosis with left leg radicular pain. Description of Procedure INTERLAMINAR EPIDURAL STEROID INJECTION Diagnosis: Lumbar radiculitis, intervertebral disc disease Level injected: Left L4/L5 interlaminar. Surgeon: Dr. Durán Prior to starting, the Patients diagnosis and the procedure were reviewed with the patient in detail. Possible risks, complications and alternative therapies were also reviewed. Patients questions were answered. Informed consent was obtained. Allergies and medication list was reviewed. The patient was brought to the fluoroscopy room and placed in prone position on the table. Immediately prior to starting the procedure, a time out was conducted with the staff and the patient where the patient was identified, proposed procedure was verified, consent was reviewed and the proper site for the planned procedure was identified. Fluoroscopy was utilized in performing the procedure to assist the placement of the needle, to evaluate the final position of the needle prior to injection and to avoid intravascular injection. Monitors used included intermittent blood pressure with automated device, continuous pulse oximetry and level of consciousness. Patient was not given any intravenous sedation and constant verbal contact was maintained throughout the procedure. Biplanar fluoroscopy was used to assist the placement of the needle and to evaluate final needle position prior to injection. Lumbar-sacral area was prepped with DuraPrep and Betadine solution. Sterile drapes were applied. A true AP view of the superior endplate of the L5 vertebra was obtained. Skin and soft tissue over the inferior aspect of the interlaminar laminar notch was infiltrated with 1 mL of 1% Xylocaine using a 25 gauge needle. Midline approach was utilized. A 20 gauge, 3.5 inch Tuohy needle was then inserted through the anesthetized area and advanced under fluoroscopic guidance through the intraspinous ligaments. C-arm was then turned to a true lateral view and the needle was advanced through the ligamentum flavum into the epidural space with [id number] technique with air. Upon entering the epidural space the patient did not experience pain or paresthesia. Bevel of the needle was directed in the cephalad direction. 6 inch micro bore tubing was attached to the needle and aspiration via the needle demonstrated no CSF or blood. In a lateral view, 1cc Isovue 300 contrast was injected via the needle under live fluoroscopy. The contrast was noted to be in the dorsal epidural space. No subarachnoid spread of contrast was noted. Presence of contrast was verified and contralateral oblique view. Finally, an AP view was then checked and additional 1cc of the contrast was injected under live fluoroscopy. Neither subdural or subarachnoid spread nor intravascular uptake was noted on plain fluoroscopy. No vascular uptake was noted on a 10 second run of digital subtraction angiography at rate of 8 fps. Next, 60 mg Kenalog followed by 3cc of preservation free 0.9% saline was injected via the epidural needle gradually. Patient did not experience any pain , paresthesia or discomfort throughout the injection period. Needle was flushed with additional 0.5 ML of saline withdrawn. Adequate hemostasis was noted. A sterile Band-Aid was applied at the injection site. Patient was then placed in sitting position. Patient was monitored for additional 30 minutes in the waiting area and discharged with an accompanying adult. Discharge instructions were reviewed with the Patient. Any specific questions were answered. Patient voiced understanding of the instructions. Follow-up appointment has been scheduled. I attest to the content of the Intraoperative Record and any orders documented therein. Any exceptions are noted below.
--- NOTE | 2017-07-20 13:22 | Anesthesiology Progress Note ---
Anesthesia Post Op Note Date & Time Jul 20, 2017 at 13:21 Vital Signs Pain Intensity: 0 Vital Signs Past 12 Hours Date Time Temp Pulse Resp B/P (MAP) Pulse Ox O2 Delivery O2 Flow Rate FiO2 07/20/17 13:10 37.0 60 16 125/67 (86) 96 Nasal Cannula 2.0 07/20/17 13:00 36.5 59 18 192/88 99 Nasal Cannula 2 07/20/17 12:50 59 18 190/81 99 Nasal Cannula 2 07/20/17 12:45 60 18 173/88 98 Nasal Cannula 2 07/20/17 12:42 37.5 60 18 197/109 95 Nasal Cannula 2 07/20/17 09:34 67 164/87 (112) 07/20/17 07:40 Room Air 07/20/17 06:54 36.7 61 18 157/69 (98) 97 Room Air Notes Mental Status: alert / awake / arousable, participated in evaluation Pt Amnestic to Procedure: Yes Nausea / Vomiting: adequately controlled Pain: adequately controlled Airway Patency, RR, SpO2: stable & adequate BP & HR: stable & adequate Hydration State: stable & adequate Anesthetic Complications: no major complications apparent
[2017-07-20] MEDS: GABAPENTIN 600 MG TAB PO SCH (13:47)
[2017-07-20] MEDS: LIDODERM (LIDOCAINE) PATCH 5% TD SCH (13:47)
[2017-07-20] MEDS: FENTANYL PATCH REMOVE & WASTE SCH (13:47)
[2017-07-20] MEDS: FENTANYL 25 MCG/HR TDSY TD SCH (13:48)
--- NOTE | 2017-07-20 15:08 | Progress Note ---
Medicine Progress Note Date & Time of Visit: Jul 20, 2017 at 14:59. Subjective patient s/p lumbar spine epidural injection today states low back pain is better, still reports LLQ pain and tenderness no BM x 4 days, (+) flatus denies other symptoms Objective Last 8 Hrs Date Time Temp Pulse Resp B/P (MAP) Pulse Ox O2 Delivery O2 Flow Rate FiO2 07/20/17 14:58 36.3 65 18 136/81 (99) 94 Nasal Cannula 2.5 07/20/17 14:16 36.4 64 18 152/78 (102) 94 Nasal Cannula 2.0 07/20/17 13:40 36.6 66 20 175/76 (109) 98 Room Air 07/20/17 13:10 37.0 60 16 125/67 (86) 96 Nasal Cannula 2.0 07/20/17 13:00 36.5 59 18 192/88 99 Nasal Cannula 2 07/20/17 12:50 59 18 190/81 99 Nasal Cannula 2 07/20/17 12:45 60 18 173/88 98 Nasal Cannula 2 07/20/17 12:42 37.5 60 18 197/109 95 Nasal Cannula 2 07/20/17 09:34 67 164/87 (112) 07/20/17 07:40 Room Air Physical Exam: General- oriented x 3, not in distress, speaks in sentences with no effort Eyes- EOMI, anicteric Neck- supple, no JVD Lungs- clear breath sounds b/l no rales/wheezes Heart- regular rhythm; no murmur, normal rate Abdomen- normal bowel sounds, soft, (+) LLQ tenderness Extremities- no pretibial edema, no calf tenderness; peripheral pulses intact Neuro- alert, oriented x 3; no gross focal deficits Skin- warm & dry Laboratory Results: Last 24 Hours Test 07/19/17 16:45 07/19/17 19:52 07/20/17 01:58 07/20/17 04:44 Bedside Glucose 141 mg/dl 379 mg/dl 172 mg/dl Prothrombin Time 11.7 SECONDS Prothromb Time International Ratio 1.1 Sodium Level 138 mmol/L Potassium Level 4.7 mmol/L Chloride Level 102 mmol/L Carbon Dioxide Level 32 mmol/L Anion Gap 4.0 mmol/L Blood Urea Nitrogen 27 mg/dl Creatinine 1.48 mg/dl Est Creatinine Clear Calc Drug Dose 30.3 ml/min Estimated GFR () 39.5 Estimated GFR (Non- 34.0 BUN/Creatinine Ratio 18.3 Random Glucose 136 mg/dl Calcium Level 9.8 mg/dl Test 07/20/17 09:29 07/20/17 10:55 07/20/17 13:28 Bedside Glucose 118 mg/dl 113 mg/dl 160 mg/dl Assessment & Plan Patient is a 77yr female with a PMH of MS, DM II, HTN, HLD, CAD (s/p stents x 3 in 2008), hypothyroidism, h/o DVT (on coumadin) who presents with worsening lower back pain over the past few weeks. LOW BACK PAIN SECONDARY, LUMBAR SPINE STENOSIS, RADICULOPATHY Lumbar spine MRI with multilevel lumbosacral spondylosis/ spinal stenosis -- Pain Management consulted -- on Fentanyl Patch, Gapabentin, Tramadol, PRN Morphine -- : Epidural Steroid Injection Vit K given, INR 1.0 ASA held -- will monitor response will discuss with Pain Mgt if Coumadin and ASA may be resumed tomorrow LLQ PAIN -- r/o Diverticulitis -- Check CT abdomen/Pelvis CONSTIPATION -- add Senokot S PRN Dulcolax Suppository and Lactulose MARY on CKD III Hyperkalemia: Hold Lisinopril for now Cr better, likely this is her new baseline -- monitor crea DM II: Hgb a1c of 8.1 in 2012 hgb a1c:9.0, likley from recent prednisone use Hold home agents BSG checks AC HS ISS, lantus CAD (s/p stents x 3): Asymptomatic ASA and coumadin on hold in light of epidural injection today Hypothyroidism: Continue levothyroxine H/o DVT: On chronic anticoagulation with coumadin coumadin on hold for epidural steroid injection Monitor INR: subtherapeutic -- INR 1.0 possible resumption of Coumadin tomorrow HTN: Stable, labile Hold Lisinopril secondary to MARY Nifedipine dose increased to 90mg daily -- continue to monitor DVT Ppx: SCDs coumadin on hold Code status: FULL PCP: Celi Disposition: Rehab Current Inpatient Medications: Current Inpatient Medications Medications (Trade) Dose Ordered Sig/Love Route Start Time Stop Time Status Last Admin Dose Admin Miscellaneous (Iv Fluids Completed) 1 ea PRN PRN N/A 07/15/17 16:30 07/15/18 16:29 07/17/17 02:40 1 EA Acetaminophen (Tylenol Tab) 650 mg Q4H PRN PO 07/15/17 16:30 08/14/17 16:29 07/18/17 21:46 650 MG Ondansetron HCl (Zofran Inj) 4 mg Q6H PRN IV 07/15/17 16:30 08/14/17 16:29 07/20/17 09:42 4 MG Miscellaneous Information (Consult Glycemic Management Pharmacy) 1 ea UD PRN N/A 07/15/17 18:03 08/14/17 18:02 Insulin Aspart (novoLOG ASPART) SLIDING SCALE If C... ACHS SC 07/15/17 21:00 08/14/17 20:59 07/20/17 14:10 4 UNITS Glucose (Glucose 40% Gel) 15-30 GRAMS 15 GRAMS... UD PRN PO 07/15/17 17:00 08/14/17 16:59 Glucose (Glucose Chew Tab) 4-8 Tablets 4 Tabl... UD PRN PO 07/15/17 17:00 08/14/17 16:59 Dextrose (Dextrose 50% 50ML Syringe) 25-50ML OF 50% DW IV FOR... UD PRN IV 07/15/17 17:00 08/14/17 16:59 Glucagon (Glucagon Inj) 1 mg UD PRN SQ 07/15/17 17:00 08/14/17 16:59 Folic Acid (Folvite Tab) 400 mcg DAILY PO 07/16/17 08:00 08/15/17 07:59 07/20/17 09:37 400 MCG Levothyroxine Sodium (Synthroid Tab) 75 mcg DAILYBB PO 07/16/17 06:30 08/15/17 06:29 07/19/17 06:16 75 MCG Lisinopril (Zestril Tab) 20 mg DAILY PO 07/16/17 08:00 08/15/17 07:59 Future Hold 07/16/17 09:21 20 MG Pantoprazole Sodium (Protonix Tab) 40 mg DAILY PO 07/16/17 08:00 08/15/17 07:59 07/20/17 09:37 40 MG Ranitidine HCl (zANTac TAB) 150 mg BID PO 07/16/17 08:00 08/15/17 07:59 07/20/17 09:38 150 MG Ropinirole HCl (Requip Tab) 1 mg BID PO 07/16/17 08:00 08/15/17 07:59 07/20/17 09:37 1 MG Simvastatin (Zocor Tab) 20 mg HS PO 07/16/17 22:00 08/15/17 21:59 07/19/17 21:25 20 MG Tramadol HCl (Ultram Tab) 50 mg BID PRN PO 07/15/17 23:00 08/14/17 22:59 07/19/17 18:09 50 MG Warfarin Sodium (Coumadin Tab) 3 mg DAILY@1600 PO 07/16/17 16:00 08/15/17 15:59 Future hold 07/17/17 15:59 3 MG Cyanocobalamin (Vitamin B-12 Tab) 1,000 mcg DAILY PO 07/16/17 08:00 08/15/17 07:59 07/20/17 09:38 1,000 MCG Miscellaneous Information (Check Fentanyl Patch Placement) 1 ea QS N/A 07/16/17 00:00 08/15/17 00:00 07/20/17 09:32 1 EA Magnesium Hydroxide (Milk Of Magnesia Susp) 30 ml Q12H PRN PO 07/16/17 00:45 08/15/17 00:44 07/17/17 02:28 30 ML Polyethylene (Miralax Powder Packet) 17 gm DAILY PRN PO 07/16/17 00:45 08/15/17 00:44 07/16/17 17:34 17 GM Nifedipine (Procardia Xl Tab) 90 mg DAILY PO 07/17/17 08:00 08/15/17 07:59 07/20/17 09:37 90 MG Hydralazine HCl (HydrALAZINE INJ) 10 mg Q6H PRN IV. 07/16/17 14:00 08/15/17 13:59 Gadobutrol (Gadavist) 8 mmol UD PRN IV 07/17/17 11:45 07/21/17 11:44 Fentanyl (Duragesic Patch) 25 mcg Q3D@1200 TD 07/17/17 12:00 07/31/17 11:59 07/20/17 13:48 25 MCG Miscellaneous (Fentanyl Patch Remove & Waste) 1 ea Q3D@1200 N/A 07/17/17 12:30 08/16/17 12:29 07/20/17 13:47 1 EA Metformin HCl (Glucophage Tab) 500 mg DAILY PO 07/18/17 08:00 08/17/17 07:59 Future hold 07/19/17 08:11 500 MG Pioglitazone HCl (ACTos TAB) 15 mg DAILY PO 07/18/17 08:00 08/17/17 07:59 07/20/17 09:37 15 MG Gabapentin (Neurontin Cap) 900 mg BID PO 07/18/17 20:00 08/17/17 19:59 07/20/17 09:37 900 MG Gabapentin (Neurontin Tab) 600 mg QDL PO 07/18/17 12:00 08/17/17 11:59 07/20/17 13:47 600 MG Docusate Sodium (coLACE CAP) 100 mg BID PO 07/18/17 20:00 08/17/17 19:59 07/20/17 09:37 100 MG Lidocaine (Lidoderm Patch 5%) 1 patch QAM TD 07/20/17 08:00 08/19/17 07:59 07/20/17 13:47 1 PATCH Miscellaneous (Remove Lidoderm Patch) 1 ea DAILY@21 N/A 07/19/17 21:00 08/18/17 20:59 07/19/17 21:27 1 EA Morphine Sulfate (MoRPHine SULFATE INJ) 2 mg Q4H PRN IV 07/20/17 09:45 08/03/17 09:44 07/20/17 09:43 2 MG Fentanyl Citrate (Fentanyl Inj) 50 mcg Q5M PRN IV 07/20/17 12:30 07/20/17 18:00 Hydromorphone HCl (Dilaudid Inj) 0.5 mg Q5M PRN IV 07/20/17 12:30 07/20/17 18:00 Meperidine HCl (Demerol Inj) 25 mg Q5M PRN IV 07/20/17 12:30 07/20/17 18:00 Ondansetron HCl (Zofran Inj) 4 mg ONE PRN IV 07/20/17 12:30 07/20/17 18:00 Labetalol HCl (Normodyne IV) 5 mg Q5M PRN IV 07/20/17 12:30 07/20/17 18:00 Ephedrine Sulfate (EpHEDrine SULFATE INJ) 5 mg Q5M PRN IV 07/20/17 12:30 07/20/17 18:00 Atropine Sulfate (Atropine Sulfate 0.1MG/Ml Inj) 0.5 mg Q1M PRN IV 07/20/17 12:30 07/20/17 18:00 Prednisone (PredniSONE TAB) 40 mg Taper QAM PO 07/21/17 08:00 07/25/17 07:59
[2017-07-20] MEDS ORDERED: LACTULOSE SYRUP 30 GM/45 ML UDP PO PRN (15:15)
[2017-07-20] MEDS ORDERED: BISACODYL 10 MG SUPP PR PRN (15:15)
--- NOTE | 2017-07-20 15:21 | Pharmacy Progress Note ---
Pharmacy Glycemic Short Note 2 Date of Service Jul 20, 2017. OUTPATIENT ANTIDIABETIC REGIMEN: * Metformin, glipizide and pioglitazone ASSESSMENT: * Patient remains on a prednisone taper and using the NPH to cover this has been working well * She was NPO for 1/2 of today because of going to the OR for an epidural injection * She still received her prednisone dose but I will plan to cut the NPH dose by ~1/3 since she did not have her breakfast and lunch today * Of note, she had a very high BSG last night but this was due to eating a frosty and not being covered PLAN FOR INPATIENT GLYCEMIC CONTROL: * Resume metformin tomorrow since diet resumed * Continue Actos * NPH 22 units x 1 today, will order further doses tomorrow * Continue Novolog ACHS * Goal 110-140 * CF 30 * CR 10
[2017-07-20] MEDS ORDERED: DOCUSATE SODIUM/SENNA 50/8.6MG TAB PO ONE (15:30)
--- NOTE | 2017-07-20 16:27 | DIAGNOSTIC IMAGING REPORT ---
ADDENDUM Impression #4- Moderate thickening of the left piriformis musculature appears unchanged from comparison study suggesting chronic piriformis syndrome. Correlate with patient history. Electronically signed by: Hal Pratt M.D. 07/20/2017 5:19 PM Dictated Date/Time: 07/20/2017 5:18 PM ORIGINAL REPORT ABDOMEN AND PELVIS CT WITHOUT CONTRAST CT DOSE: 877.57 mGy.cm HISTORY: Acute left lower quadrant abdominal pain with concern for possible acute diverticulitis. r/o diverticulitis TECHNIQUE: Multiaxial CT images of the abdomen and pelvis were performed without contrast. A dose lowering technique was utilized adhering to the principles of ALARA. COMPARISON STUDY: Spot fluoroscopic images from epidural injection of same day, CT abdomen and pelvis 06/19/2017. FINDINGS: The imaged lung bases are generally clear with mild dependent bibasilar atelectasis and/or minimal pleural parenchymal scarring. There is no pneumoperitoneum identified. Imaged inferior cardiac chambers are unremarkable. Coronary arterial calcifications are noted. Evaluation of the solid abdominal organs is limited without use of contrast. Within the limitations of the study, the liver, and adrenal glands are unremarkable. Prior cholecystectomy. No intrahepatic biliary ductal dilation. There are a few scattered nonspecific calcifications throughout the splenic parenchyma. Moderate to extensive diffuse pancreatic atrophy. Nonspecific perinephric stranding is present bilaterally. There are at least 3 nonobstructing calculi of the right kidney, largest of which measures 4 mm within the interpolar right kidney. No definite left-sided renal calculi, ureteral calculi or obstructive uropathy. Mild nonspecific perinephric stranding is again seen. Urinary bladder is partially collapsed. Prior hysterectomy. Abdominal aorta is normal in course and caliber with moderate atrophy chronic plaquing. No bulky adenopathy. There is no bowel obstruction or focal bowel wall thickening. There is mild colonic diverticulosis without CT evidence of acute diverticulitis. The appendix is not definitively visualized. No secondary signs of acute appendicitis. Injection granulomas of the gluteal tissues noted. There is a moderate amount of air in the posterior epidural space extending from L3-L4 through the lower sacrum. Mild amount of air is also seen tracking along the neurovascular bundle within the left sciatic notch and adjacent to the left Piriformis musculature. No associated significant inflammatory stranding identified. No focal fluid collections. Degenerative changes are noted throughout the spine and pelvis. The bones appear osteopenic. IMPRESSION: 1. Moderate amount of air within the posterior epidural space extends from L3-L4 through the lower sacrum with mild amount of air also noted tracking along the neurovascular bundle of the left sciatic notch and tracking along the left Piriformis musculature. This is likely related to patient's recent epidural injection. No associated soft tissue collection or significant inflammatory changes. 2. Mild colonic diverticulosis without diverticulitis. 3. Nonobstructing right-sided nephrolithiasis. Electronically signed by: Hal Pratt M.D. 07/20/2017 4:26 PM Dictated Date/Time: 07/20/2017 4:14 PM
[2017-07-20] MEDS: SIMVASTATIN 20 MG TAB PO SCH (20:38)
[2017-07-21] MEDS: CHECK FENTANYL PATCH PLACEMENT SCH ×4 (00:15→23:54)
[2017-07-21] MEDS: MoRPHine SULFATE 2 MG/ML CARP IV PRN ×2 (02:58→08:47)
[2017-07-21] MEDS: LEVOTHYROXINE 75 MCG TAB PO SCH (06:08)
[2017-07-21 07:05] VITALS: BP 175/80; PULSE 63; TEMP 36.8; O2SAT 94
[2017-07-21] MEDS ORDERED: INSULIN HUMAN NPH SC ONE (08:00)
[2017-07-21] MEDS: LIDODERM (LIDOCAINE) PATCH 5% TD SCH (08:50)
[2017-07-21] MEDS: ONDANSETRON INJ 2 MG/ML 2 ML VIAL IV PRN ×2 (08:53→14:47)
--- NOTE | 2017-07-21 08:59 | Neurology Progress Notes ---
Neurology Progress Note Date of Service Jul 21, 2017. Subjective Patient is in a lot of left low back pain. She points to her left SI joint area and feels that this is tender. The L3-4 epidural steroid injection done yesterday did not help her pain. Nursing reports no new issues otherwise. Glucose levels have been elevated since the injection. Objective Date Time Temp Pulse Resp B/P (MAP) Pulse Ox O2 Delivery O2 Flow Rate FiO2 07/21/17 07:05 36.8 63 18 175/80 (111) 94 Room Air 07/21/17 00:02 Room Air 07/20/17 23:56 36.7 57 18 128/72 (90) 95 Room Air 07/20/17 16:23 Room Air 07/20/17 14:58 36.3 65 18 136/81 (99) 94 Nasal Cannula 2.5 07/20/17 14:16 36.4 64 18 152/78 (102) 94 Nasal Cannula 2.0 07/20/17 13:40 36.6 66 20 175/76 (109) 98 Room Air 07/20/17 13:10 37.0 60 16 125/67 (86) 96 Nasal Cannula 2.0 07/20/17 13:00 36.5 59 18 192/88 99 Nasal Cannula 2 07/20/17 12:50 59 18 190/81 99 Nasal Cannula 2 07/20/17 12:45 60 18 173/88 98 Nasal Cannula 2 07/20/17 12:42 37.5 60 18 197/109 95 Nasal Cannula 2 07/20/17 09:34 67 164/87 (112) Last 24 Hours Test 07/20/17 09:29 07/20/17 10:55 07/20/17 13:28 07/20/17 16:53 Bedside Glucose 118 mg/dl 113 mg/dl 160 mg/dl 242 mg/dl Test 07/20/17 20:14 07/21/17 08:09 Bedside Glucose 274 mg/dl Exam: She is awake and alert. Speech is normal without aphasia or dysarthria. Mood is down and affect is appropriate. She is tearful and in pain. Extraocular eye muscles are intact without nystagmus. There is no facial droop. Mentation thought processes are intact. Right lower extremity is 5/5 strength diffusely with good tone and no atrophy. Left lower extremity strength had 4/5 strength proximally in the hip flexor and quadriceps muscles secondary to giveaway weakness from pain. Distally in the left lower extremity strength is 5/5. Toes are downgoing with plantar stimulation bilaterally. Reflexes are 1/4 in the quadriceps and right Achilles and absent in the left Achilles tendons. Arm strength is symmetrical and there are no abnormal involuntary movements. Patient is tender over the left SI joint area. Current Inpatient Medications Medications (Trade) Dose Ordered Sig/Love Route Start Time Stop Time Status Last Admin Dose Admin Miscellaneous (Iv Fluids Completed) 1 ea PRN PRN N/A 07/15/17 16:30 07/15/18 16:29 07/17/17 02:40 1 EA Acetaminophen (Tylenol Tab) 650 mg Q4H PRN PO 07/15/17 16:30 08/14/17 16:29 07/18/17 21:46 650 MG Ondansetron HCl (Zofran Inj) 4 mg Q6H PRN IV 07/15/17 16:30 08/14/17 16:29 07/20/17 15:42 4 MG Miscellaneous Information (Consult Glycemic Management Pharmacy) 1 ea UD PRN N/A 07/15/17 18:03 08/14/17 18:02 Insulin Aspart (novoLOG ASPART) SLIDING SCALE If C... ACHS SC 07/15/17 21:00 08/14/17 20:59 07/20/17 20:44 5 UNITS Glucose (Glucose 40% Gel) 15-30 GRAMS 15 GRAMS... UD PRN PO 07/15/17 17:00 08/14/17 16:59 Glucose (Glucose Chew Tab) 4-8 Tablets 4 Tabl... UD PRN PO 07/15/17 17:00 08/14/17 16:59 Dextrose (Dextrose 50% 50ML Syringe) 25-50ML OF 50% DW IV FOR... UD PRN IV 07/15/17 17:00 08/14/17 16:59 Glucagon (Glucagon Inj) 1 mg UD PRN SQ 07/15/17 17:00 08/14/17 16:59 Folic Acid (Folvite Tab) 400 mcg DAILY PO 07/16/17 08:00 08/15/17 07:59 07/20/17 09:37 400 MCG Levothyroxine Sodium (Synthroid Tab) 75 mcg DAILYBB PO 07/16/17 06:30 08/15/17 06:29 07/21/17 06:08 75 MCG Lisinopril (Zestril Tab) 20 mg DAILY PO 07/16/17 08:00 08/15/17 07:59 Future Hold 07/16/17 09:21 20 MG Pantoprazole Sodium (Protonix Tab) 40 mg DAILY PO 07/16/17 08:00 08/15/17 07:59 07/20/17 09:37 40 MG Ranitidine HCl (zANTac TAB) 150 mg BID PO 07/16/17 08:00 08/15/17 07:59 07/20/17 20:38 150 MG Ropinirole HCl (Requip Tab) 1 mg BID PO 07/16/17 08:00 08/15/17 07:59 07/20/17 20:38 1 MG Simvastatin (Zocor Tab) 20 mg HS PO 07/16/17 22:00 08/15/17 21:59 07/20/17 20:38 20 MG Tramadol HCl (Ultram Tab) 50 mg BID PRN PO 07/15/17 23:00 08/14/17 22:59 07/19/17 18:09 50 MG Cyanocobalamin (Vitamin B-12 Tab) 1,000 mcg DAILY PO 07/16/17 08:00 08/15/17 07:59 07/20/17 09:38 1,000 MCG Miscellaneous Information (Check Fentanyl Patch Placement) 1 ea QS N/A 07/16/17 00:00 08/15/17 00:00 07/21/17 08:01 1 EA Magnesium Hydroxide (Milk Of Magnesia Susp) 30 ml Q12H PRN PO 07/16/17 00:45 08/15/17 00:44 07/17/17 02:28 30 ML Polyethylene (Miralax Powder Packet) 17 gm DAILY PRN PO 07/16/17 00:45 08/15/17 00:44 07/16/17 17:34 17 GM Nifedipine (Procardia Xl Tab) 90 mg DAILY PO 07/17/17 08:00 08/15/17 07:59 07/20/17 09:37 90 MG Hydralazine HCl (HydrALAZINE INJ) 10 mg Q6H PRN IV. 07/16/17 14:00 08/15/17 13:59 Gadobutrol (Gadavist) 8 mmol UD PRN IV 07/17/17 11:45 07/21/17 11:44 Fentanyl (Duragesic Patch) 25 mcg Q3D@1200 TD 07/17/17 12:00 07/31/17 11:59 07/20/17 13:48 25 MCG Miscellaneous (Fentanyl Patch Remove & Waste) 1 ea Q3D@1200 N/A 07/17/17 12:30 08/16/17 12:29 07/20/17 13:47 1 EA Metformin HCl (Glucophage Tab) 500 mg DAILY PO 07/18/17 08:00 08/17/17 07:59 Future Hold 07/19/17 08:11 500 MG Pioglitazone HCl (ACTos TAB) 15 mg DAILY PO 07/18/17 08:00 08/17/17 07:59 07/20/17 09:37 15 MG Gabapentin (Neurontin Cap) 900 mg BID PO 07/18/17 20:00 08/17/17 19:59 07/20/17 20:37 900 MG Gabapentin (Neurontin Tab) 600 mg QDL PO 07/18/17 12:00 08/17/17 11:59 07/20/17 13:47 600 MG Lidocaine (Lidoderm Patch 5%) 1 patch QAM TD 07/20/17 08:00 08/19/17 07:59 07/20/17 13:47 1 PATCH Miscellaneous (Remove Lidoderm Patch) 1 ea DAILY@21 N/A 07/19/17 21:00 08/18/17 20:59 07/20/17 20:38 1 EA Morphine Sulfate (MoRPHine SULFATE INJ) 2 mg Q4H PRN IV 07/20/17 09:45 08/03/17 09:44 07/21/17 02:58 2 MG Prednisone (PredniSONE TAB) 40 mg Taper QAM PO 07/21/17 08:00 07/25/17 07:59 Senna/Docusate Sodium (Senokot S Tab) 1 tab QAM PO 07/21/17 08:00 08/20/17 07:59 Bisacodyl (Dulcolax Supp) 10 mg DAILY PRN VA 07/20/17 15:15 08/19/17 15:14 Lactulose (Chronulac Syrup) 30 gm BID PRN PO 07/20/17 15:15 08/19/17 15:14 Impression 1. The acute low back and left lower extremity pain She has known lumbar spinal stenosis and known radiculopathy, in the right lower extremity as far back as 2009, and in the left lower extremity this year. MRI shows significant spinal stenosis around the L5 level. She is not getting adequate pain relief and the L3/4 epidural steroid injection yesterday did not help. I have discussed this case with pain management at bedside today and they are concerned about an SI joint origin to the pain and want to inject the left SI joint. Given her pain pattern around the left groin it, proximal anterior thigh, and left lower quadrant abdominally, this may be a little higher at L2 or L3. 2. Multiple sclerosis. She has been fairly stable on [place]. This will be kept the same. She has 1 new lesion of a subacute nature on the right. I am not sure this correlates with any clinical symptomatology. 3. Bilateral essential tremor, significant, help somewhat with propranolol. This is stable Plan 1. Continue the tapering prednisone course, decreasing by 10 mg daily until off. Take with food and watch glucose 2. Continue physical therapy. Consider [facility] stay 3. Pain management is considering left SI joint injection We are trying to avoid surgery if possible. 4. Consider increasing gabapentin to 900 milligrams 3 times a day. 5. Consider increasing tramadol usage. I will follow. I spoke with Dr. Figueroa regarding this case including differential diagnosis and treatment options.
[2017-07-21 09:02] LABS: BUN/CREATININE RATIO 19.8 (10-20); CREATININE 1.48 mg/dl (0.60-1.20); POTASSIUM 4.2 mmol/L (3.5-5.1)
--- NOTE | 2017-07-21 09:09 | Anesthesiology Progress Note ---
Anesthesia Post Op Note Date & Time Jul 21, 2017 at 09:07 Vital Signs Pain Intensity: 10.0 Vital Signs Past 12 Hours Date Time Temp Pulse Resp B/P (MAP) Pulse Ox O2 Delivery O2 Flow Rate FiO2 07/21/17 07:05 36.8 63 18 175/80 (111) 94 Room Air 07/21/17 00:02 Room Air 07/20/17 23:56 36.7 57 18 128/72 (90) 95 Room Air Notes Mental Status: alert / awake / arousable, participated in evaluation Pt Amnestic to Procedure: Yes Nausea / Vomiting: adequately controlled Pain: see Notes Airway Patency, RR, SpO2: stable & adequate BP & HR: stable & adequate Hydration State: stable & adequate Anesthetic Complications: no major complications apparent Pt in tears c/o terrible pain in her left hip. Dr. Welch notified.
--- NOTE | 2017-07-21 09:14 | DIAGNOSTIC IMAGING REPORT ---
LEFT HIP 2 VIEWS CLINICAL HISTORY: Left hip and groin pain. FINDINGS: AP and frog-leg views of the left hip are compared to study dated 06/19/2017. The skeletal structures are osteopenic. No fracture is seen in the left hip or the visualized left hemipelvis. Mild arthritic change and joint space narrowing are observed in the left hip. Enthesophytes arise from the greater trochanter of left femur and the left anterior superior iliac spine. The left sacroiliac joint is normal as imaged. The overlying soft tissues are within normal limits. A calcified granuloma is noted in the left gluteal region. IMPRESSION: Osteopenia and mild arthritic change as above. No acute bony abnormality seen in the left hip and there has been no significant change from 06/19/2017. Electronically signed by: Marty Hester M.D. 07/21/2017 9:12 AM Dictated Date/Time: 07/21/2017 9:11 AM
[2017-07-21] MEDS: ROPINIROLE HCL 1 MG TAB PO SCH ×2 (09:26→21:32)
[2017-07-21] MEDS: PANTOprazole SOD 40 MG TAB PO SCH (09:26)
[2017-07-21] MEDS: PIOGLITAZONE TAB 15 MG TAB PO SCH (09:27)
[2017-07-21] MEDS: RANITIDINE HCL 150 MG TAB PO SCH ×2 (09:27→21:32)
[2017-07-21] MEDS: DOCUSATE SODIUM/SENNA 50/8.6MG TAB PO SCH (09:27)
[2017-07-21] MEDS ORDERED: MoRPHine SULFATE 2 MG/ML CARP IV ONE (09:30)
[2017-07-21] MEDS ORDERED: METFORMIN HCL 500 MG TAB PO ONE (09:30)
[2017-07-21] MEDS: NIFEdipine 30 MG CR TAB PO SCH (09:31)
[2017-07-21] MEDS: FINGOLIMOD HCL 0.5 MG CAP PO SCH (09:32)
[2017-07-21] MEDS: CYANOCOBALAMIN 500 MCG TAB (VIT B-12) PO SCH (09:33)
[2017-07-21] MEDS: GABAPENTIN 300 MG CAP PO SCH ×3 (09:33→21:30)
[2017-07-21] MEDS: FoLIC ACID TAB 400 MCG TAB PO SCH (09:33)
[2017-07-21] MEDS: INSULIN ASPART 100 UNITS/ML 3 ML PEN SC SCH ×4 (09:48→21:27)
--- NOTE | 2017-07-21 09:49 | Pain Management Progress Note ---
Pain Management Progress Note Date of Service Jul 21, 2017. Subjective Patient has history of low back pain with radiation towards the left lower extremity and underwent a left paramedian L4-5 interlaminar CARTER performed by Dr. Durán yesterday 07/20/2017. The patient is reporting no improvement in her low back or left lower extremity pain since the time of this procedure. She is having severe pain in the left lumbosacral region extending towards the hip and groin and occasionally the medial thigh. She describes the pain as fairly constant, aching and sharp in characteristic aggravated with any movements. She reports an inability to stand or ambulate due to the pain. Patient rates her current pain at a 6-8/10, ranging between a 3-8/10. Patient denies any bowel or bladder incontinence. Patient expresses no side effects from the epidural procedure. She has no further constitutional complaints at this time. Plan of care discussed with Dr. Winifred Welch. Attending physician addendum Approximately noon 07/21/2017 I had a discussion with the patient and her daughter. The patient reported that she was having improvement of her low back pain as well as resolution of her radicular symptoms distal to her knee. She continues to request an increase in her fentanyl patch. Pain Location 1 - 2 - Objective Vital Signs: Last Vital Signs Documentation Date Time Temp Pulse Resp B/P (MAP) Pulse Ox O2 Delivery O2 Flow Rate FiO2 07/21/17 07:05 36.8 63 18 175/80 (111) 94 Room Air 07/20/17 14:58 2.5 Physical Exam: General: Patient sitting up upon entering the room in apparent distress aggravated with any movements. Speech and thought process appropriate. Mood and affect appropriate. Cognition intact. Back/spine: Loss of lumbar lordosis. No evidence of edema, erythema or skin breakdown at site of CARTER. Patient is closely tender over the left SI joint to provocative testing and moderately tender to the left gluteal region. Patient moderately tender to provocative testing of the right SI joint. No focal facet joint tenderness. Moderately tender in the paravertebral musculature to lumbar sacral junction. Range of motion limited in all planes. Lower extremities: SLR negative with slight increase in axial pain. Teo maneuver was marginally positive on the left and equivocal on the right. Thigh thrust test was positive on the left and negative on the right. Patient is tender over the left greater trochanter to direct palpation and minimally tender correspondingly on the right. Left hip is tender with internal and external rotation. She is tender to palpation along the inguinal ligament without evidence of inguinal adenopathy. No visible abnormalities. Neurologic: Cranial nerves grossly intact. Ambulatory function not witnessed. Laboratory Laboratory Findings 07/19/17 05:54 Red Blood Count 3.87 L, Mean Corpuscular Volume 93.0, Mean Corpuscular Hemoglobin 30.7, Mean Corpuscular Hemoglobin Concent 33.1, Mean Platelet Volume 10.7 H, Neutrophils (%) (Auto) 87.3, Lymphocytes (%) (Auto) 7.2, Monocytes (%) ( Auto) 5.1, Eosinophils (%) (Auto) 0.2, Basophils (%) (Auto) 0.0, Neutrophils # ( Auto) 5.71, Lymphocytes # (Auto) 0.47 L, Monocytes # (Auto) 0.33, Eosinophils # (Auto) 0.01, Basophils # (Auto) 0.00 Assessment 1. Lumbago 2. Left lower extremity radicular pain 3. Sacroiliitis 4. Left hip pain 5. Multiple sclerosis Recommendations 1. We discussed etiologies and treatment options. Will request left-sided hip series x-ray. 2. Will discuss the possibility of pursuing a left SI joint injection for diagnostic/therapy purposes further with Dr. Welch prior to scheduling. 3. We discussed the possibility of benefit from CARTER over the next 3-7 days Attending physician addendum 4. Recommend deferring a left SI joint injection for the time being until we see full effect of her interlaminar epidural steroid injection at the 10-14 day shahrzad postinjection as she is starting to get benefit with improvement in her low back pain and resolution of her distal to the knee radicular symptoms. 5. She may utilize [place] 5/325 mg 1 by mouth every 4 when necessary pain. Orders were written, and tramadol discontinued as breakthrough pain medication 6. Will initiate nortriptyline 10 mg by mouth daily at bedtime and increase her gabapentin to 900 mg by mouth 3 times a day. 7. Recommend reconditioning with physical therapy post discharge to improve pain, function, and instruct her on lumbar spine protective techniques 8. I did attempt to explain this to her daughter and the patient, however these seemed frustrated by lack of progress in her pain. I did express to them that I had counseled the patient preinjection, that it would take up to 2 weeks for maximal effect of epidural steroid injections and there is nothing that I can do to make this process go any faster. 9. She may continue her oral steroids under the direction of the hospitalist service. 10. I will speak with Dr. Alfaro in regards to these concerns.
[2017-07-21 11:19] VITALS: BP 168/82; PULSE 59; TEMP 36.9; O2SAT 92
[2017-07-21] MEDS ORDERED: CLONIDINE HCL 0.1 MG TAB PO PRN (11:45)
[2017-07-21] MEDS ORDERED: D5W AND NSS 1,000 ML IV SCH (12:15)
[2017-07-21 12:50] VITALS: BP 186/80
[2017-07-21] MEDS: HYDROCODONE/ACETAMOPHEN 5/325MG TAB PO PRN ×2 (13:45→21:33)
[2017-07-21] MEDS: MoRPHine SULFATE 4 MG/ML 1 ML CARP\\VIAL IV PRN (14:48)
[2017-07-21 14:56] VITALS: BP 109/56; PULSE 61; TEMP 36.7; O2SAT 95
--- NOTE | 2017-07-21 15:19 | Pharmacy Progress Note ---
Pharmacy Glycemic Short Note 2 Date of Service Jul 21, 2017. ASSESSMENT: * Ms. Muhammad received 43 units of insulin yesterday with BSGs ranging from 113 -274 mg/dL in the past 24 hours * BSG management has been difficult due to: * ongoing oral steroid taper * changes to NPO status * receiving an epidural steroid injection yesterday * ongoing pain * The NPH dose was reduced yesterday because of getting it later in the day, however, she could have used the full dose * She received the 0.4 unit/kg dose of NPH today but BSGs have remained elevated - most likely from the epidural steroid injection * Will plan to tighten the CF/CR further and further doses of NPH will need to be guided by the BSGs PLAN FOR INPATIENT GLYCEMIC CONTROL: * Metformin was held today for NPO status - can resume tomorrow, continue pioglitazone * NPH 32 units x 1 today, further doses to be ordered daily * Bolus insulin * NovoLog per scale ACHS or Q6hrs while NPO * Goal Range: Low 110 mg/dL - High 140 mg/dL * TIGHTEN Correction Factor to : 25 mg/dL/unit * TIGHTEN Nutritional / Prandial insulin to carb ratio of 1 unit per 8 grams CHO consumed
[2017-07-21] MEDS ORDERED: LACTULOSE SYRUP 30 GM/45 ML UDP PO ONE (15:45)
[2017-07-21] MEDS ORDERED: BISACODYL 10 MG SUPP PR PRN (15:45)
--- NOTE | 2017-07-21 15:51 | Progress Note ---
Medicine Progress Note Date & Time of Visit: Jul 21, 2017 at 15:50. Subjective tearful, still having significant pain today pain mostly in the LLQ and groin no BMs yet denies chest pain, dyspnea, dizziness, nausea, palpitations no other symptoms Objective Last 8 Hrs Date Time Temp Pulse Resp B/P (MAP) Pulse Ox O2 Delivery O2 Flow Rate FiO2 07/21/17 14:56 36.7 61 18 109/56 (73) 95 Room Air 07/21/17 12:50 186/80 (115) 07/21/17 11:19 36.9 59 16 168/82 (110) 92 Room Air Physical Exam: General- oriented x 3, not in distress, speaks in sentences with no effort Eyes- EOMI, anicteric Neck- sno JVD Lungs- clear breath sounds bilaterally, no rales/wheezes Heart- regular rhythm; no murmur, normal rate Abdomen- normal bowel sounds, soft, (+) LLQ tenderness Extremities- no pretibial edema, no calf tenderness; peripheral pulses intact Neuro- alert, oriented x 3; no gross focal deficits Skin- warm & dry Laboratory Results: Last 24 Hours Test 07/20/17 16:53 07/20/17 20:14 07/21/17 07:29 07/21/17 08:09 Bedside Glucose 242 mg/dl 274 mg/dl 182 mg/dl Sodium Level 136 mmol/L Potassium Level 4.2 mmol/L Chloride Level 100 mmol/L Carbon Dioxide Level 29 mmol/L Anion Gap 8.0 mmol/L Blood Urea Nitrogen 29 mg/dl Creatinine 1.48 mg/dl Est Creatinine Clear Calc Drug Dose 30.3 ml/min Estimated GFR () 39.5 Estimated GFR (Non- 34.0 BUN/Creatinine Ratio 19.8 Random Glucose 185 mg/dl Calcium Level 10.0 mg/dl Test 07/21/17 11:16 Bedside Glucose 265 mg/dl Assessment & Plan Patient is a 77yr female with a PMH of MS, DM II, HTN, HLD, CAD (s/p stents x 3 in 2008), hypothyroidism, h/o DVT (on coumadin) who presents with worsening lower back pain over the past few weeks. LOW BACK PAIN SECONDARY, LUMBAR SPINE STENOSIS, RADICULOPATHY Lumbar spine MRI with multilevel lumbosacral spondylosis/ spinal stenosis -- Pain Management consulted -- on Fentanyl Patch, Gapabentin, Tramadol, PRN Morphine -- : Epidural Steroid Injection Vit K given ASA held -- still having significant pain [place] PRN ordered Nortryptiline added Gabapentin increased Morphine increased Fentanyl continued -- continue to monitor response -- discussed with Dr. Welch may resume coumadin, heparin for DVT prophylaxis LLQ PAIN -- CT abdomen/Pelvis: no diverticulitis -- may be related to lumbar spine stenosis CONSTIPATION -- add Senokot S -- Lactulose ordered PRN Dulcolax suppository MARY on CKD III Hyperkalemia: Hold Lisinopril for now Cr better, likely this is her new baseline -- monitor crea DM II: Hgb a1c of 8.1 in 2012 hgb a1c:9.0, likely from recent prednisone use Hold home agents BSG checks AC HS ISS, lantus CAD (s/p stents x 3): Asymptomatic ASA and coumadin resumed Hypothyroidism: Continue levothyroxine H/o DVT: On chronic anticoagulation with coumadin coumadin on hold for epidural steroid injection Monitor INR: subtherapeutic -- INR 1.0 coumadin resumed HTN: Stable, labile Hold Lisinopril secondary to MARY Nifedipine dose increased to 90mg daily -- continue to monitor DVT Ppx: SCDs coumadin + heparin subcutaneously Code status: FULL PCP: Celi Disposition: Rehab Current Inpatient Medications: Current Inpatient Medications Medications (Trade) Dose Ordered Sig/Love Route Start Time Stop Time Status Last Admin Dose Admin Miscellaneous (Iv Fluids Completed) 1 ea PRN PRN N/A 07/15/17 16:30 07/15/18 16:29 07/17/17 02:40 1 EA Acetaminophen (Tylenol Tab) 650 mg Q4H PRN PO 07/15/17 16:30 08/14/17 16:29 07/18/17 21:46 650 MG Ondansetron HCl (Zofran Inj) 4 mg Q6H PRN IV 07/15/17 16:30 08/14/17 16:29 07/21/17 14:47 4 MG Miscellaneous Information (Consult Glycemic Management Pharmacy) 1 ea UD PRN N/A 07/15/17 18:03 08/14/17 18:02 Insulin Aspart (novoLOG ASPART) SLIDING SCALE If C... ACHS SC 07/15/17 21:00 08/14/17 20:59 07/21/17 13:36 8 UNITS Glucose (Glucose 40% Gel) 15-30 GRAMS 15 GRAMS... UD PRN PO 07/15/17 17:00 08/14/17 16:59 Glucose (Glucose Chew Tab) 4-8 Tablets 4 Tabl... UD PRN PO 07/15/17 17:00 08/14/17 16:59 Dextrose (Dextrose 50% 50ML Syringe) 25-50ML OF 50% DW IV FOR... UD PRN IV 07/15/17 17:00 08/14/17 16:59 Glucagon (Glucagon Inj) 1 mg UD PRN SQ 07/15/17 17:00 08/14/17 16:59 Folic Acid (Folvite Tab) 400 mcg DAILY PO 07/16/17 08:00 08/15/17 07:59 07/21/17 09:33 400 MCG Levothyroxine Sodium (Synthroid Tab) 75 mcg DAILYBB PO 07/16/17 06:30 08/15/17 06:29 07/21/17 06:08 75 MCG Lisinopril (Zestril Tab) 20 mg DAILY PO 07/16/17 08:00 08/15/17 07:59 Future Hold 07/16/17 09:21 20 MG Pantoprazole Sodium (Protonix Tab) 40 mg DAILY PO 07/16/17 08:00 08/15/17 07:59 07/21/17 09:26 40 MG Ranitidine HCl (zANTac TAB) 150 mg BID PO 07/16/17 08:00 08/15/17 07:59 07/21/17 09:27 150 MG Ropinirole HCl (Requip Tab) 1 mg BID PO 07/16/17 08:00 08/15/17 07:59 07/21/17 09:26 1 MG Simvastatin (Zocor Tab) 20 mg HS PO 07/16/17 22:00 08/15/17 21:59 07/20/17 20:38 20 MG Cyanocobalamin (Vitamin B-12 Tab) 1,000 mcg DAILY PO 07/16/17 08:00 08/15/17 07:59 07/21/17 09:33 1,000 MCG Miscellaneous Information (Check Fentanyl Patch Placement) 1 ea QS N/A 07/16/17 00:00 08/15/17 00:00 07/21/17 08:01 1 EA Magnesium Hydroxide (Milk Of Magnesia Susp) 30 ml Q12H PRN PO 07/16/17 00:45 08/15/17 00:44 07/17/17 02:28 30 ML Polyethylene (Miralax Powder Packet) 17 gm DAILY PRN PO 07/16/17 00:45 08/15/17 00:44 07/16/17 17:34 17 GM Nifedipine (Procardia Xl Tab) 90 mg DAILY PO 07/17/17 08:00 08/15/17 07:59 07/21/17 09:31 90 MG Hydralazine HCl (HydrALAZINE INJ) 10 mg Q6H PRN IV. 07/16/17 14:00 08/15/17 13:59 Fentanyl (Duragesic Patch) 25 mcg Q3D@1200 TD 07/17/17 12:00 07/31/17 11:59 07/20/17 13:48 25 MCG Miscellaneous (Fentanyl Patch Remove & Waste) 1 ea Q3D@1200 N/A 07/17/17 12:30 08/16/17 12:29 07/20/17 13:47 1 EA Metformin HCl (Glucophage Tab) 500 mg DAILY PO 07/18/17 08:00 08/17/17 07:59 Future hold 07/19/17 08:11 500 MG Pioglitazone HCl (ACTos TAB) 15 mg DAILY PO 07/18/17 08:00 08/17/17 07:59 07/21/17 09:27 15 MG Lidocaine (Lidoderm Patch 5%) 1 patch QAM TD 07/20/17 08:00 08/19/17 07:59 07/21/17 08:50 1 PATCH Miscellaneous (Remove Lidoderm Patch) 1 ea DAILY@21 N/A 07/19/17 21:00 08/18/17 20:59 07/20/17 20:38 1 EA Prednisone (PredniSONE TAB) 40 mg Taper QAM PO 07/21/17 08:00 07/25/17 07:59 07/21/17 09:34 40 MG Senna/Docusate Sodium (Senokot S Tab) 1 tab QAM PO 07/21/17 08:00 08/20/17 07:59 07/21/17 09:27 1 TAB Bisacodyl (Dulcolax Supp) 10 mg DAILY PRN [place] 07/20/17 15:15 08/19/17 15:14 Lactulose (Chronulac Syrup) 30 gm BID PRN PO 07/20/17 15:15 08/19/17 15:14 Morphine Sulfate (MoRPHine SULFATE INJ) 4 mg Q4H PRN IV 07/21/17 09:30 08/03/17 09:44 07/21/17 14:48 4 MG Clonidine HCl (Catapres Tab) 0.1 mg Q6H PRN PO 07/21/17 11:45 08/20/17 11:44 07/21/17 12:53 0.1 MG Gabapentin (Neurontin Cap) 900 mg TID PO 07/21/17 14:00 08/20/17 13:59 07/21/17 13:33 900 MG Nortriptyline HCl (Pamelor Cap) 10 mg HS PO 07/21/17 22:00 08/20/17 21:59 Acetaminophen/ Hydrocodone Bitart ([place] 5/325 Tab) 1 tab Q4H PRN PO 07/21/17 13:45 08/04/17 13:44 07/21/17 13:45 1 TAB
[2017-07-21] MEDS ORDERED: ASPIRIN 81 MG ECTAB PO STA (16:12)
[2017-07-21] MEDS: WARFARIN SOD 3 MG TAB PO SCH (17:32)
[2017-07-21] MEDS: HEPARIN SOD 5000 UNIT/0.5 ML CARP SQ SCH (21:29)
[2017-07-21] MEDS: NORTRIPTYLINE HCL 10 MG CAP PO SCH (21:30)
[2017-07-21] MEDS: SIMVASTATIN 20 MG TAB PO SCH (21:32)
[2017-07-21 23:59] VITALS: O2SAT 94
[2017-07-22] VITALS (7 sets, daily range): BP systolic 107–161; BP diastolic 63–77; PULSE 54–72; TEMP 36.5–36.9; O2SAT 91–98
[2017-07-22] MEDS: MoRPHine SULFATE 4 MG/ML 1 ML CARP\\VIAL IV PRN ×2 (01:58→07:12)
[2017-07-22] MEDS: HYDROCODONE/ACETAMOPHEN 5/325MG TAB PO PRN ×2 (05:04→17:45)
[2017-07-22] MEDS: LEVOTHYROXINE 75 MCG TAB PO SCH (05:05)
[2017-07-22] MEDS: HEPARIN SOD 5000 UNIT/0.5 ML CARP SQ SCH (05:11)
[2017-07-22] MEDS ORDERED: INSULIN HUMAN NPH SC ONE (08:00)
[2017-07-22 08:01] LABS: INR 0.9 (0.9-1.1); PROTHROMBIN TIME (PATIENT) 9.5 SECONDS (9.0-12.0)
[2017-07-22 08:15] LABS: BUN/CREATININE RATIO 22.8 (10-20); CALCIUM 9.4 mg/dl (8.5-10.1); CREATININE 1.59 mg/dl (0.60-1.20); POTASSIUM 4.3 mmol/L (3.5-5.1)
[2017-07-22] MEDS: PIOGLITAZONE TAB 15 MG TAB PO SCH (08:34)
[2017-07-22] MEDS: ASPIRIN 81 MG ECTAB PO SCH (08:35)
[2017-07-22] MEDS: FoLIC ACID TAB 400 MCG TAB PO SCH (08:35)
[2017-07-22] MEDS: CYANOCOBALAMIN 500 MCG TAB (VIT B-12) PO SCH (08:35)
[2017-07-22] MEDS: RANITIDINE HCL 150 MG TAB PO SCH ×2 (08:36→21:04)
[2017-07-22] MEDS: METFORMIN HCL 500 MG TAB PO SCH (08:37)
[2017-07-22] MEDS: PANTOprazole SOD 40 MG TAB PO SCH (08:37)
[2017-07-22] MEDS: ROPINIROLE HCL 1 MG TAB PO SCH ×2 (08:38→21:04)
[2017-07-22] MEDS: GABAPENTIN 300 MG CAP PO SCH ×3 (08:38→21:05)
[2017-07-22] MEDS: DOCUSATE SODIUM/SENNA 50/8.6MG TAB PO SCH (08:38)
[2017-07-22] MEDS: FINGOLIMOD HCL 0.5 MG CAP PO SCH (08:39)
[2017-07-22] MEDS: CHECK FENTANYL PATCH PLACEMENT SCH ×2 (08:39→15:57)
[2017-07-22] MEDS: LIDODERM (LIDOCAINE) PATCH 5% TD SCH (08:40)
[2017-07-22] MEDS: NIFEdipine 30 MG CR TAB PO SCH (08:40)
[2017-07-22] MEDS: INSULIN ASPART 100 UNITS/ML 3 ML PEN SC SCH ×4 (08:43→21:05)
--- NOTE | 2017-07-22 09:34 | Pharmacy Progress Note ---
Pharmacy Glycemic Short Note 2 Date of Service Jul 22, 2017. OUTPATIENT ANTIDIABETIC REGIMEN: * Metformin 500mg PO Daily * Glipizide 10mg PO BIDM * Pioglitazone 15mg PO Daily * A1c = 9% on 07/16/17 ASSESSMENT: * BSGs 169, 264, 233, 265, 185 over the past 24hrs * Pt has been receiving ~ 50 units of insulin per day {while oral agents are on hold} with near adequate control. * SQ basal bolus insulin regimen changed from Lantus + NovoLog to NPH + NovoLog to match steroid induced hyperglycemia with once daily prednisone. * Prednisone tapering from 40mg daily to 30mg daily today. Expect decrease in total daily insulin dose needed. * Recommended dose of NPH is 0.3 units/kg for 30mg of prednisone. PLAN FOR INPATIENT GLYCEMIC CONTROL: * Hold outpatient oral diabetes medications * Basal insulin * reduce NPH from 32 units to 24 units (0.3 units/kg) to cover 30mg of prednisone daily. * Bolus insulin: no changes needed * NovoLog per scale ACHS or Q6hrs while NPO * Goal Range: Low 110 mg/dL - High 140 mg/dL * Correction Factor: 25 mg/dL/unit * Nutritional / Prandial insulin per carb ratio of 1 unit per 8 grams CHO consumed PLAN FOR DISCHARGE: * Pt may require basal insulin at discharge with A1c >9% * May consider d/c one oral outpatient agent (glipizide or actos) with the addition of basal insulin
[2017-07-22] MEDS ORDERED: LIDOCAINE HCL 2% LOCAL 50ML VIAL ONE (10:51)
[2017-07-22] MEDS ORDERED: TRIAMCINOLONE ACET 40 MG/ML VIAL ONE (10:51)
[2017-07-22] MEDS ORDERED: CONRAY 30% 150ML BOTTLE ONE (10:52)
[2017-07-22] MEDS ORDERED: BUPIVACAINE 0.5 % 5 MG/1 ML MPF 30ML VIAL ONE (10:52)
--- NOTE | 2017-07-22 11:11 | Pain Management Progress Note ---
Pain Management Progress Note Date of Service Jul 22, 2017. Subjective Luisana reports significant improvement of her radicular component. However, she continues experience exquisite pain over left SI joint. She reports pain to be sharp and stabbing and occurs with any movement including log rolling. Denies any side effects from the epidural steroid injection. Pain Location 1 - Objective Vital Signs: Last Vital Signs Documentation Date Time Temp Pulse Resp B/P (MAP) Pulse Ox O2 Delivery O2 Flow Rate FiO2 07/22/17 08:00 Room Air 07/22/17 07:16 36.8 56 18 129/74 (92) 91 07/20/17 14:58 2.5 Physical Exam: Exam demonstrates her to be awake and alert. She is extremely anxious. Straight raising is negative bilaterally. Provocative testing of the SI joint reproduces her pain on the left buttock region. Laboratory Laboratory Findings 07/19/17 05:54 Red Blood Count 3.87 L, Mean Corpuscular Volume 93.0, Mean Corpuscular Hemoglobin 30.7, Mean Corpuscular Hemoglobin Concent 33.1, Mean Platelet Volume 10.7 H, Neutrophils (%) (Auto) 87.3, Lymphocytes (%) (Auto) 7.2, Monocytes (%) ( Auto) 5.1, Eosinophils (%) (Auto) 0.2, Basophils (%) (Auto) 0.0, Neutrophils # ( Auto) 5.71, Lymphocytes # (Auto) 0.47 L, Monocytes # (Auto) 0.33, Eosinophils # (Auto) 0.01, Basophils # (Auto) 0.00 Assessment 1. Multilevel spinal stenosis. 2. Lumbar radiculitis. 3. Left sacroiliitis. 4. Anxiety. Recommendations 1. Recommend SI joint injection left side today. Patient resumed her Coumadin yesterday and has received 3 mg. Her INR this morning is 0.9. Because she is not nothing by mouth, she would not be receiving IV sedation and the procedure will be performed under local anesthetic. Informed consent was obtained.
--- NOTE | 2017-07-22 11:50 | Pain Clinic Procedure Note ---
Pain Management Procedure Note Date of Procedure Jul 22, 2017. Procedure Description Procedure: Left SI joint injection. Procedure Time Out: side/site verified, patient ID confirmed, correct procedure Consent Obtained: written Performed By: Dr. Durán Indications: diagnostic, therapeutic Contraindications: none Pre Procedure Vital Signs Date Time Temp Pulse Resp B/P (MAP) Pulse Ox O2 Delivery O2 Flow Rate FiO2 07/22/17 08:00 Room Air 07/22/17 07:16 36.8 56 18 129/74 (92) 91 Room Air ASA Class: 3 Description: SACROILIAC JOINT INJECTION Diagnosis: Inflammatory Sacroiliitis and Lumbago Side: Left. Surgeon: Dr. Durán Prior to starting, the Patients diagnosis and the procedure were reviewed with the patient in detail. Possible risks, complications and alternative therapies were also reviewed. Patients questions were answered. Informed consent was obtained. Allergies and medication list was reviewed. The patient was brought to the fluoroscopy room and placed in prone position on the table. Immediately prior to starting the procedure, a time out was conducted with the staff and the patient where the patient was identified, proposed procedure was verified, consent was reviewed and the proper site for the planned procedure was identified. Fluoroscopy was utilized in performing the procedure to assist the placement of the needle, to evaluate the final position of the needle prior to injection and to avoid intravascular injection. Monitors used included intermittent blood pressure with automated device, continuous pulse oximetry and level of consciousness. Patient was not given any intravenous sedation and constant verbal contact was maintained throughout the procedure. Biplanar fluoroscopy was used to assist in the placement of the needle as well as evaluate final needle position prior to the injection. On examination, no signs of skin breakdown or infection were noted at the injection site. Lumbar-sacral area was prepped with duraprep and Betadine solution. Sterile drapes were applied. Posterior superior iliac spine was identified by palpation and under fluoroscopy. Fluoroscope was rotated in the axial plane to obtain an ideal view if the inferior portion of the posterior aspect of the sacroiliac joint. Fluoroscope was then angled in a slight caudal direction. Skin and subcutaneous tissues were infiltrated with local anesthetic and a 22 gauge 3.5 inch Quincke point spinal needle with approximately 15 degree curve was advanced through the skin and subcutaneous tissues towards the sacroiliac joint under direct fluoroscopic guidance into the affected joint. Needle position was verified to be in the joint in a lateral view. 0.5 cc of Isovue 300 was injected via the needle and the contrast was noted to confirm intra-articular needle placement. Next, a solution containing 40 mg of Triamcinalone acetonide and 3cc of 0.5% Bupivacaine-MPF was injected. Needle was then flushed with 0.5 cc of the local anesthetic and withdrawn. Adequate hemostasis was noted. A sterile band aid was applied at the injection site. Patient was monitored for additional 30 minutes in the waiting area and discharged with an accompanying adult. Discharge instructions were reviewed with the Patient. Any specific questions were answered. Emergency phone numbers and contact information was relayed. Patient voiced understanding of the instructions. Follow-up appointment has been scheduled. Complications: none Patient Tolerated Procedure: well Post-Procedure Vital Signs: Vital Signs Date Time Temp Pulse Resp B/P (MAP) Pulse Ox O2 Delivery O2 Flow Rate FiO2 07/22/17 08:00 Room Air 07/22/17 07:16 36.8 56 18 129/74 (92) 91 07/20/17 14:58 2.5 Discharge Instructions: reviewed & understood
[2017-07-22] MEDS ORDERED: FENTANYL PATCH REMOVE & WASTE ONE (12:00)
[2017-07-22] MEDS ORDERED: FENTANYL 25 MCG/HR TDSY TD ONE (12:30)
[2017-07-22] MEDS: WARFARIN SOD 3 MG TAB PO SCH (16:00)
--- NOTE | 2017-07-22 20:03 | Progress Note ---
Medicine Progress Note Date & Time of Visit: Jul 22, 2017 at 19:57. Subjective patient seen resting in bed s/p SI joint injection today tolerated well left sided pain is much better, able to ambulate better no other symptoms Objective Last 8 Hrs Date Time Temp Pulse Resp B/P (MAP) Pulse Ox O2 Delivery O2 Flow Rate FiO2 07/22/17 16:45 Room Air 07/22/17 14:41 36.9 64 18 107/63 (78) 94 Room Air 07/22/17 12:30 36.7 72 16 150/67 97 Room Air 07/22/17 12:00 36.5 72 16 150/67 98 Room Air Physical Exam: General- oriented x 3, not in distress, speaks in sentences with no effort Eyes- anicteric Neck- no JVD Lungs- clear BS BL Heart- regular rhythm; no murmur, normal rate Abdomen- normal bowel sounds, soft, (+) mild LLQ tenderness Extremities- no pretibial edema, no calf tenderness; peripheral pulses intact Neuro- alert, oriented x 3; no gross focal deficits Skin- warm & dry Laboratory Results: Last 24 Hours Test 07/21/17 20:04 07/22/17 07:28 07/22/17 07:30 07/22/17 07:32 Bedside Glucose 264 mg/dl 169 mg/dl Prothrombin Time 9.5 SECONDS Prothromb Time International Ratio 0.9 Sodium Level 137 mmol/L Potassium Level 4.3 mmol/L Chloride Level 99 mmol/L Carbon Dioxide Level 29 mmol/L Anion Gap 9.0 mmol/L Blood Urea Nitrogen 36 mg/dl Creatinine 1.59 mg/dl Est Creatinine Clear Calc Drug Dose 28.2 ml/min Estimated GFR () 36.2 Estimated GFR (Non- 31.2 BUN/Creatinine Ratio 22.8 Random Glucose 170 mg/dl Calcium Level 9.4 mg/dl Test 07/22/17 13:07 Bedside Glucose 111 mg/dl Assessment & Plan Patient is a 77yr female with a PMH of MS, DM II, HTN, HLD, CAD (s/p stents x 3 in 2008), hypothyroidism, h/o DVT (on coumadin) who presents with worsening lower back pain over the past few weeks. LOW BACK PAIN secondary to LUMBAR SPINE STENOSIS, RADICULOPATHY, LEFT SACROILIITIS Lumbar spine MRI with multilevel lumbosacral spondylosis/ spinal stenosis -- Pain Management consulted -- on Fentanyl Patch, Gapabentin, Tramadol, PRN Morphine -- : Epidural Steroid Injection Vit K given ASA held 07/22/17: SI Joint Injection -- pain significantly improved [place] PRN ordered Nortryptiline added Gabapentin increased Morphine increased Fentanyl continued -- continue to monitor response -- resume heparin tomorrow coumadin and aspirin may be resumed today as per Dr. Durán LLQ PAIN -- CT abdomen/Pelvis: no diverticulitis -- may be related to lumbar spine stenosis, sacroiliitis CONSTIPATION -- add Senokot S -- Lactulose ordered PRN Dulcolax suppository MARY on CKD III Hyperkalemia: Hold Lisinopril for now -- monitor crea DM II: Hgb a1c of 8.1 in 2012 hgb a1c:9.0, likely from recent prednisone use Hold home agents BSG checks AC HS ISS, lantus CAD (s/p stents x 3): Asymptomatic ASA and coumadin resumed Hypothyroidism: Continue levothyroxine H/o DVT: On chronic anticoagulation with coumadin Monitor INR: subtherapeutic -- INR 0.9 coumadin resumed HTN: Stable, labile Hold Lisinopril secondary to MARY Nifedipine dose increased to 90mg daily -- continue to monitor DVT Ppx: SCDs coumadin + heparin subcutaneously Code status: FULL PCP: Celi Disposition: patient prefers to go home with home health if possible, will repeat PT/OT eval tomorrow Current Inpatient Medications: Current Inpatient Medications Medications (Trade) Dose Ordered Sig/Love Route Start Time Stop Time Status Last Admin Dose Admin Miscellaneous (Iv Fluids Completed) 1 ea PRN PRN N/A 07/15/17 16:30 07/15/18 16:29 07/17/17 02:40 1 EA Acetaminophen (Tylenol Tab) 650 mg Q4H PRN PO 07/15/17 16:30 08/14/17 16:29 07/18/17 21:46 650 MG Ondansetron HCl (Zofran Inj) 4 mg Q6H PRN IV 07/15/17 16:30 08/14/17 16:29 07/21/17 14:47 4 MG Miscellaneous Information (Consult Glycemic Management Pharmacy) 1 ea UD PRN N/A 07/15/17 18:03 08/14/17 18:02 Insulin Aspart (novoLOG ASPART) SLIDING SCALE If C... ACHS SC 07/15/17 21:00 08/14/17 20:59 07/22/17 17:42 12 UNITS Glucose (Glucose 40% Gel) 15-30 GRAMS 15 GRAMS... UD PRN PO 07/15/17 17:00 08/14/17 16:59 Glucose (Glucose Chew Tab) 4-8 Tablets 4 Tabl... UD PRN PO 07/15/17 17:00 08/14/17 16:59 Dextrose (Dextrose 50% 50ML Syringe) 25-50ML OF 50% DW IV FOR... UD PRN IV 07/15/17 17:00 08/14/17 16:59 Glucagon (Glucagon Inj) 1 mg UD PRN SQ 07/15/17 17:00 08/14/17 16:59 Folic Acid (Folvite Tab) 400 mcg DAILY PO 07/16/17 08:00 08/15/17 07:59 07/22/17 08:35 400 MCG Levothyroxine Sodium (Synthroid Tab) 75 mcg DAILYBB PO 07/16/17 06:30 08/15/17 06:29 07/22/17 05:05 75 MCG Lisinopril (Zestril Tab) 20 mg DAILY PO 07/16/17 08:00 08/15/17 07:59 Future Hold 07/16/17 09:21 20 MG Pantoprazole Sodium (Protonix Tab) 40 mg DAILY PO 07/16/17 08:00 08/15/17 07:59 07/22/17 08:37 40 MG Ranitidine HCl (zANTac TAB) 150 mg BID PO 07/16/17 08:00 08/15/17 07:59 07/22/17 08:36 150 MG Ropinirole HCl (Requip Tab) 1 mg BID PO 07/16/17 08:00 08/15/17 07:59 07/22/17 08:38 1 MG Simvastatin (Zocor Tab) 20 mg HS PO 07/16/17 22:00 08/15/17 21:59 07/21/17 21:32 20 MG Cyanocobalamin (Vitamin B-12 Tab) 1,000 mcg DAILY PO 07/16/17 08:00 08/15/17 07:59 07/22/17 08:35 1,000 MCG Miscellaneous Information (Check Fentanyl Patch Placement) 1 ea QS N/A 07/16/17 00:00 08/15/17 00:00 07/22/17 15:57 1 EA Magnesium Hydroxide (Milk Of Magnesia Susp) 30 ml Q12H PRN PO 07/16/17 00:45 08/15/17 00:44 07/17/17 02:28 30 ML Polyethylene (Miralax Powder Packet) 17 gm DAILY PRN PO 07/16/17 00:45 08/15/17 00:44 07/16/17 17:34 17 GM Nifedipine (Procardia Xl Tab) 90 mg DAILY PO 07/17/17 08:00 08/15/17 07:59 07/22/17 08:40 90 MG Hydralazine HCl (HydrALAZINE INJ) 10 mg Q6H PRN IV. 07/16/17 14:00 08/15/17 13:59 Metformin HCl (Glucophage Tab) 500 mg DAILY PO 07/18/17 08:00 08/17/17 07:59 Future hold 07/22/17 08:37 500 MG Pioglitazone HCl (ACTos TAB) 15 mg DAILY PO 07/18/17 08:00 08/17/17 07:59 07/22/17 08:34 15 MG Lidocaine (Lidoderm Patch 5%) 1 patch QAM TD 07/20/17 08:00 08/19/17 07:59 07/22/17 08:40 1 PATCH Miscellaneous (Remove Lidoderm Patch) 1 ea DAILY@21 N/A 07/19/17 21:00 08/18/17 20:59 07/21/17 21:31 1 EA Prednisone (PredniSONE TAB) 30 mg Taper QAM PO 07/21/17 08:00 07/25/17 07:59 07/22/17 08:37 30 MG Senna/Docusate Sodium (Senokot S Tab) 1 tab QAM PO 07/21/17 08:00 08/20/17 07:59 07/22/17 08:38 1 TAB Bisacodyl (Dulcolax Supp) 10 mg DAILY PRN [place] 07/20/17 15:15 08/19/17 15:14 Lactulose (Chronulac Syrup) 30 gm BID PRN PO 07/20/17 15:15 08/19/17 15:14 Morphine Sulfate (MoRPHine SULFATE INJ) 4 mg Q4H PRN IV 07/21/17 09:30 08/03/17 09:44 07/22/17 07:12 4 MG Clonidine HCl (Catapres Tab) 0.1 mg Q6H PRN PO 07/21/17 11:45 08/20/17 11:44 07/21/17 12:53 0.1 MG Gabapentin (Neurontin Cap) 900 mg TID PO 07/21/17 14:00 08/20/17 13:59 07/22/17 14:36 900 MG Nortriptyline HCl (Pamelor Cap) 10 mg HS PO 07/21/17 22:00 08/20/17 21:59 07/21/17 21:30 10 MG Acetaminophen/ Hydrocodone Bitart ([place] 5/325 Tab) 1 tab Q4H PRN PO 07/21/17 13:45 08/04/17 13:44 07/22/17 17:45 1 TAB Warfarin Sodium (Coumadin Tab) 3 mg DAILY@16 PO 07/21/17 16:30 08/20/17 16:29 07/22/17 16:00 3 MG Aspirin (Ecotrin Tab) 81 mg QAM PO 07/22/17 08:00 08/21/17 07:59 07/22/17 08:35 81 MG Insulin Human NPH (novoLIN-N NPH) 20 units QDB SC 07/23/17 08:00 08/22/17 07:59 Heparin Sodium (Porcine) (Heparin Sq 5000 Unit/0.5ml) 5,000 unit Q8H SQ 07/23/17 09:00 08/22/17 08:59
[2017-07-22] MEDS: SIMVASTATIN 20 MG TAB PO SCH (21:04)
[2017-07-22] MEDS: NORTRIPTYLINE HCL 10 MG CAP PO SCH (21:07)
[2017-07-23] MEDS: CHECK FENTANYL PATCH PLACEMENT SCH ×4 (00:14→15:35)
[2017-07-23 00:30] VITALS: O2SAT 94
[2017-07-23] MEDS: LEVOTHYROXINE 75 MCG TAB PO SCH (06:04)
[2017-07-23] MEDS: HYDROCODONE/ACETAMOPHEN 5/325MG TAB PO PRN ×3 (06:05→17:54)
[2017-07-23 07:14] VITALS: BP 135/79; PULSE 64; TEMP 36.5; O2SAT 98
[2017-07-23 07:43] VITALS: O2SAT 94
[2017-07-23 07:43] LABS: PROTHROMBIN TIME (PATIENT) 11.1 SECONDS (9.0-12.0)
[2017-07-23] MEDS ORDERED: INSULIN HUMAN NPH SC SCH ×2 (08:00→08:30)
[2017-07-23 08:04] LABS: BUN/CREATININE RATIO 24.7 (10-20); CALCIUM 9.3 mg/dl (8.5-10.1); CREATININE 1.46 mg/dl (0.60-1.20); POTASSIUM 4.1 mmol/L (3.5-5.1)
[2017-07-23] MEDS: GABAPENTIN 300 MG CAP PO SCH ×3 (09:11→21:04)
[2017-07-23] MEDS: FoLIC ACID TAB 400 MCG TAB PO SCH (09:11)
[2017-07-23] MEDS: PANTOprazole SOD 40 MG TAB PO SCH (09:12)
[2017-07-23] MEDS: ASPIRIN 81 MG ECTAB PO SCH (09:12)
[2017-07-23] MEDS: RANITIDINE HCL 150 MG TAB PO SCH ×2 (09:12→21:04)
[2017-07-23] MEDS: ROPINIROLE HCL 1 MG TAB PO SCH ×2 (09:13→21:04)
[2017-07-23] MEDS: METFORMIN HCL 500 MG TAB PO SCH (09:13)
[2017-07-23] MEDS: PIOGLITAZONE TAB 15 MG TAB PO SCH (09:14)
[2017-07-23] MEDS: CYANOCOBALAMIN 500 MCG TAB (VIT B-12) PO SCH (09:14)
[2017-07-23] MEDS: DOCUSATE SODIUM/SENNA 50/8.6MG TAB PO SCH (09:15)
[2017-07-23] MEDS: NIFEdipine 30 MG CR TAB PO SCH (09:15)
[2017-07-23] MEDS: LIDODERM (LIDOCAINE) PATCH 5% TD SCH (09:16)
[2017-07-23] MEDS: INSULIN ASPART 100 UNITS/ML 3 ML PEN SC SCH ×4 (09:22→21:09)
[2017-07-23] MEDS: INSULIN HUMAN NPH SC SCH (09:23)
[2017-07-23] MEDS: HEPARIN SOD 5000 UNIT/0.5 ML CARP SQ SCH ×2 (09:23→18:02)
[2017-07-23] MEDS: FINGOLIMOD HCL 0.5 MG CAP PO SCH (09:29)
--- NOTE | 2017-07-23 11:01 | Pharmacy Progress Note ---
Pharmacy Glycemic Short Note 2 Date of Service Jul 23, 2017. OUTPATIENT ANTIDIABETIC REGIMEN: * Metformin 500mg PO Daily * Glipizide 10mg PO BIDM * Pioglitazone 15mg PO Daily * A1c = 9% on 07/16/17 ASSESSMENT: * BSGs 169, 111, 284, 296, 180 over the past 24hrs * Pt has been receiving ~ 60 units of insulin per day {while oral agents are on hold} with near adequate control. AM bsgs are in goal range but dinner and HS BSGs hyperglycemic d/t prednisone and insufficient NPH dosing. * SQ basal bolus insulin regimen changed from Lantus + NovoLog to NPH + NovoLog to match steroid induced hyperglycemia with once daily prednisone. * Prednisone tapering daily therefore I have been tapering the NPH daily per recommended weight/mg prednisone regimen dosing. * Rec dose of NPH is 0.4 units/kg for 40mg of prednisone. {gave NPH 32 units on 07/21 with 40mg prednisone but, BSGs 185, 265, 233, 264} * Rec dose of NPH is 0.3 units/kg for 30mg of prednisone. {gave NPH 24 units on 07/22 with 30mg prednisone but, BSGs 169, 111, 284, 296} * Rec dose of NPH is 0.2 units/kg for 20mg of prednisone. {today, will increase back to 32 units today since patient appears more insulin resistant than typical weight based NPH/prednisone dosing. PLAN FOR INPATIENT GLYCEMIC CONTROL: * Hold outpatient oral diabetes medications * Basal insulin * Increase NPH from 24 units to 32 units (0.4 units/kg) to prednisone daily. * Bolus insulin: no changes needed. Will loosen parameters if BSGs start trending downwards with increased NPH dosing. * NovoLog per scale ACHS or Q6hrs while NPO * Goal Range: Low 110 mg/dL - High 140 mg/dL * Correction Factor: 25 mg/dL/unit * Nutritional / Prandial insulin per carb ratio of 1 unit per 8 grams CHO consumed PLAN FOR DISCHARGE: * Pt may require basal insulin at discharge with A1c >9% * May consider d/c one oral outpatient agent (glipizide or actos) with the addition of basal insulin
--- NOTE | 2017-07-23 12:09 | Progress Note ---
Medicine Progress Note Date & Time of Visit: Jul 23, 2017 at 12:04. Subjective patient seen resting in bed not in distress, but states her LLQ /inguinal pain is mild-moderate today denies other symptoms Objective Last 8 Hrs Date Time Temp Pulse Resp B/P (MAP) Pulse Ox O2 Delivery O2 Flow Rate FiO2 07/23/17 07:43 94 Room Air 07/23/17 07:14 36.5 64 18 135/79 (97) 98 Room Air Physical Exam: General- oriented x 3, not in distress, speaks in sentences with no effort Eyes- anicteric Neck- no JVD Lungs- clear breath sounds bilaterally, no rales/wheezes Heart- regular rhythm; no murmur, normal rate Abdomen- normal bowel sounds, soft, (+) mild LLQ tenderness Extremities- no pretibial edema, no calf tenderness; peripheral pulses intact Neuro- alert, oriented x 3; no gross focal deficits Skin- warm & dry Laboratory Results: Last 24 Hours Test 07/22/17 13:07 07/22/17 16:53 07/22/17 20:47 07/23/17 07:05 Bedside Glucose 111 mg/dl 284 mg/dl 296 mg/dl Prothrombin Time 11.1 SECONDS Prothromb Time International Ratio 1.0 Sodium Level 136 mmol/L Potassium Level 4.1 mmol/L Chloride Level 101 mmol/L Carbon Dioxide Level 27 mmol/L Anion Gap 8.0 mmol/L Blood Urea Nitrogen 36 mg/dl Creatinine 1.46 mg/dl Est Creatinine Clear Calc Drug Dose 30.7 ml/min Estimated GFR () 40.1 Estimated GFR (Non- 34.6 BUN/Creatinine Ratio 24.7 Random Glucose 166 mg/dl Calcium Level 9.3 mg/dl Test 07/23/17 07:44 07/23/17 11:26 Bedside Glucose 180 mg/dl 226 mg/dl Assessment & Plan Patient is a 77yr female with a PMH of MS, DM II, HTN, HLD, CAD (s/p stents x 3 in 2008), hypothyroidism, h/o DVT (on coumadin) who presents with worsening lower back pain over the past few weeks. LOW BACK PAIN secondary to LUMBAR SPINE STENOSIS, RADICULOPATHY, LEFT SACROILIITIS Lumbar spine MRI with multilevel lumbosacral spondylosis/ spinal stenosis -- Pain Management consulted -- on Fentanyl Patch, Gapabentin, Tramadol, PRN Morphine -- : Epidural Steroid Injection Vit K given ASA held 07/22/17: SI Joint Injection -- pain significantly improved after SI joint injection [place] PRN ordered Nortryptiline added Gabapentin increased Morphine increased Fentanyl continued -- having increased pain again today, but not as intense as 2 days ago PT/OT -- Heparin for DVT proph coumadin and aspirin also resumed LLQ PAIN -- CT abdomen/Pelvis: no diverticulitis -- may be related to lumbar spine stenosis, sacroiliitis CONSTIPATION -- added Senokot S -- Lactulose ordered PRN Dulcolax suppository -- resolving MARY on CKD III Hyperkalemia: Hold Lisinopril for now -- monitor crea DM II: hgb a1c:9.0, likely from recent prednisone use Hold home agents BSG checks AC HS ISS, lantus CAD (s/p stents x 3): Asymptomatic ASA and coumadin resumed Hypothyroidism: Continue levothyroxine H/o DVT: On chronic anticoagulation with coumadin Monitor INR: subtherapeutic -- INR 1.0 coumadin 5mg daily HTN: Stable, labile Hold Lisinopril secondary to MARY Nifedipine dose increased to 90mg daily -- continue to monitor DVT Ppx: SCDs coumadin + heparin subcutaneously Code status: FULL PCP: Celi Disposition: patient prefers to go home with home health if possible, will repeat PT/OT eval Current Inpatient Medications: Current Inpatient Medications Medications (Trade) Dose Ordered Sig/Love Route Start Time Stop Time Status Last Admin Dose Admin Miscellaneous (Iv Fluids Completed) 1 ea PRN PRN N/A 07/15/17 16:30 07/15/18 16:29 07/17/17 02:40 1 EA Acetaminophen (Tylenol Tab) 650 mg Q4H PRN PO 07/15/17 16:30 08/14/17 16:29 07/18/17 21:46 650 MG Ondansetron HCl (Zofran Inj) 4 mg Q6H PRN IV 07/15/17 16:30 08/14/17 16:29 07/21/17 14:47 4 MG Miscellaneous Information (Consult Glycemic Management Pharmacy) 1 ea UD PRN N/A 07/15/17 18:03 08/14/17 18:02 Insulin Aspart (novoLOG ASPART) SLIDING SCALE If C... ACHS SC 07/15/17 21:00 08/14/17 20:59 07/23/17 09:22 10 UNITS Glucose (Glucose 40% Gel) 15-30 GRAMS 15 GRAMS... UD PRN PO 07/15/17 17:00 08/14/17 16:59 Glucose (Glucose Chew Tab) 4-8 Tablets 4 Tabl... UD PRN PO 07/15/17 17:00 08/14/17 16:59 Dextrose (Dextrose 50% 50ML Syringe) 25-50ML OF 50% DW IV FOR... UD PRN IV 07/15/17 17:00 08/14/17 16:59 Glucagon (Glucagon Inj) 1 mg UD PRN SQ 07/15/17 17:00 08/14/17 16:59 Folic Acid (Folvite Tab) 400 mcg DAILY PO 07/16/17 08:00 08/15/17 07:59 07/23/17 09:11 400 MCG Levothyroxine Sodium (Synthroid Tab) 75 mcg DAILYBB PO 07/16/17 06:30 08/15/17 06:29 07/23/17 06:04 75 MCG Lisinopril (Zestril Tab) 20 mg DAILY PO 07/16/17 08:00 08/15/17 07:59 Future Hold 07/16/17 09:21 20 MG Pantoprazole Sodium (Protonix Tab) 40 mg DAILY PO 07/16/17 08:00 08/15/17 07:59 07/23/17 09:12 40 MG Ranitidine HCl (zANTac TAB) 150 mg BID PO 07/16/17 08:00 08/15/17 07:59 07/23/17 09:12 150 MG Ropinirole HCl (Requip Tab) 1 mg BID PO 07/16/17 08:00 08/15/17 07:59 07/23/17 09:13 1 MG Simvastatin (Zocor Tab) 20 mg HS PO 07/16/17 22:00 08/15/17 21:59 07/22/17 21:04 20 MG Cyanocobalamin (Vitamin B-12 Tab) 1,000 mcg DAILY PO 07/16/17 08:00 08/15/17 07:59 07/23/17 09:14 1,000 MCG Miscellaneous Information (Check Fentanyl Patch Placement) 1 ea QS N/A 07/16/17 00:00 08/15/17 00:00 07/23/17 08:00 1 EA Magnesium Hydroxide (Milk Of Magnesia Susp) 30 ml Q12H PRN PO 07/16/17 00:45 08/15/17 00:44 07/17/17 02:28 30 ML Polyethylene (Miralax Powder Packet) 17 gm DAILY PRN PO 07/16/17 00:45 08/15/17 00:44 07/16/17 17:34 17 GM Nifedipine (Procardia Xl Tab) 90 mg DAILY PO 07/17/17 08:00 08/15/17 07:59 07/23/17 09:15 90 MG Hydralazine HCl (HydrALAZINE INJ) 10 mg Q6H PRN IV. 07/16/17 14:00 08/15/17 13:59 Metformin HCl (Glucophage Tab) 500 mg DAILY PO 07/18/17 08:00 08/17/17 07:59 Future hold 07/23/17 09:13 500 MG Pioglitazone HCl (ACTos TAB) 15 mg DAILY PO 07/18/17 08:00 08/17/17 07:59 07/23/17 09:14 15 MG Lidocaine (Lidoderm Patch 5%) 1 patch QAM TD 07/20/17 08:00 08/19/17 07:59 07/23/17 09:16 1 PATCH Miscellaneous (Remove Lidoderm Patch) 1 ea DAILY@21 N/A 07/19/17 21:00 08/18/17 20:59 07/22/17 21:08 1 EA Prednisone (PredniSONE TAB) 20 mg Taper QAM PO 07/21/17 08:00 07/25/17 07:59 07/23/17 09:12 20 MG Senna/Docusate Sodium (Senokot S Tab) 1 tab QAM PO 07/21/17 08:00 08/20/17 07:59 07/23/17 09:15 1 TAB Bisacodyl (Dulcolax Supp) 10 mg DAILY PRN TN 07/20/17 15:15 08/19/17 15:14 Lactulose (Chronulac Syrup) 30 gm BID PRN PO 07/20/17 15:15 08/19/17 15:14 07/22/17 22:53 30 GM Morphine Sulfate (MoRPHine SULFATE INJ) 4 mg Q4H PRN IV 07/21/17 09:30 08/03/17 09:44 07/22/17 07:12 4 MG Clonidine HCl (Catapres Tab) 0.1 mg Q6H PRN PO 07/21/17 11:45 08/20/17 11:44 07/21/17 12:53 0.1 MG Gabapentin (Neurontin Cap) 900 mg TID PO 07/21/17 14:00 08/20/17 13:59 07/23/17 09:11 900 MG Nortriptyline HCl (Pamelor Cap) 10 mg HS PO 07/21/17 22:00 08/20/17 21:59 07/22/17 21:07 10 MG Acetaminophen/ Hydrocodone Bitart ([place] 5/325 Tab) 1 tab Q4H PRN PO 07/21/17 13:45 08/04/17 13:44 07/23/17 06:05 1 TAB Warfarin Sodium (Coumadin Tab) 3 mg DAILY@16 PO 07/21/17 16:30 08/20/17 16:29 07/22/17 16:00 3 MG Aspirin (Ecotrin Tab) 81 mg QAM PO 07/22/17 08:00 08/21/17 07:59 07/23/17 09:12 81 MG Heparin Sodium (Porcine) (Heparin Sq 5000 Unit/0.5ml) 5,000 unit Q8H SQ 07/23/17 09:00 08/22/17 08:59 07/23/17 09:23 5,000 UNIT Insulin Human NPH (novoLIN-N NPH) 32 units DAILY SC 07/23/17 08:40 08/22/17 08:39 07/23/17 09:23 32 UNITS
[2017-07-23 14:26] VITALS: BP 135/73; PULSE 64; TEMP 36.8; O2SAT 96
[2017-07-23 16:00] VITALS: O2SAT 96
[2017-07-23] MEDS ORDERED: WARFARIN SOD 5 MG TAB PO SCH (16:00)
[2017-07-23] MEDS: ONDANSETRON INJ 2 MG/ML 2 ML VIAL IV PRN (17:54)
[2017-07-23] MEDS: NORTRIPTYLINE HCL 10 MG CAP PO SCH (21:04)
[2017-07-23] MEDS: SIMVASTATIN 20 MG TAB PO SCH (21:05)
[2017-07-24 00:13] VITALS: BP 181/77; PULSE 59; TEMP 36.7; O2SAT 96
[2017-07-24] MEDS: CHECK FENTANYL PATCH PLACEMENT SCH ×4 (00:25→08:00)
[2017-07-24] MEDS: HEPARIN SOD 5000 UNIT/0.5 ML CARP SQ SCH ×2 (00:29→08:59)
[2017-07-24 01:30] VITALS: BP 161/68; PULSE 59
[2017-07-24] MEDS: ONDANSETRON INJ 2 MG/ML 2 ML VIAL IV PRN (05:20)
[2017-07-24] MEDS: HYDROCODONE/ACETAMOPHEN 5/325MG TAB PO PRN ×2 (05:20→12:33)
[2017-07-24] MEDS: LEVOTHYROXINE 75 MCG TAB PO SCH (06:22)
[2017-07-24 06:58] LABS: INR 1.4 (0.9-1.1); PROTHROMBIN TIME (PATIENT) 15.1 SECONDS (9.0-12.0)
[2017-07-24 07:03] VITALS: BP 180/80; PULSE 62; TEMP 36.6; O2SAT 91
[2017-07-24 07:22] LABS: BUN/CREATININE RATIO 23.9 (10-20); CALCIUM 9.2 mg/dl (8.5-10.1); CREATININE 1.47 mg/dl (0.60-1.20); POTASSIUM 4.3 mmol/L (3.5-5.1)
[2017-07-24 08:38] VITALS: BP 133/50; PULSE 70
[2017-07-24] MEDS: PANTOprazole SOD 40 MG TAB PO SCH (08:39)
[2017-07-24] MEDS: DOCUSATE SODIUM/SENNA 50/8.6MG TAB PO SCH (08:39)
[2017-07-24] MEDS: ROPINIROLE HCL 1 MG TAB PO SCH (08:39)
[2017-07-24] MEDS: NIFEdipine 30 MG CR TAB PO SCH (08:40)
[2017-07-24] MEDS: RANITIDINE HCL 150 MG TAB PO SCH (08:41)
[2017-07-24] MEDS: CYANOCOBALAMIN 500 MCG TAB (VIT B-12) PO SCH (08:42)
[2017-07-24] MEDS: PIOGLITAZONE TAB 15 MG TAB PO SCH (08:42)
[2017-07-24] MEDS: GABAPENTIN 300 MG CAP PO SCH (08:42)
[2017-07-24] MEDS: FoLIC ACID TAB 400 MCG TAB PO SCH (08:42)
[2017-07-24] MEDS: FINGOLIMOD HCL 0.5 MG CAP PO SCH (08:44)
[2017-07-24] MEDS: LIDODERM (LIDOCAINE) PATCH 5% TD SCH (08:44)
[2017-07-24] MEDS: ASPIRIN 81 MG ECTAB PO SCH (08:45)
[2017-07-24] MEDS: INSULIN ASPART 100 UNITS/ML 3 ML PEN SC SCH ×2 (08:51→12:36)
[2017-07-24] MEDS: INSULIN HUMAN NPH SC SCH (08:53)
[2017-07-24 10:11] VITALS: O2SAT 94
[2017-07-24 10:14] VITALS: BP 133/50; PULSE 70; TEMP 36.6; O2SAT 94
--- NOTE | 2017-07-24 10:57 | Pharmacy Progress Note ---
Pharmacy Glycemic Short Note 2 Date of Service Jul 24, 2017. OUTPATIENT ANTIDIABETIC REGIMEN: * Metformin 500mg PO Daily * Glipizide 10mg PO BIDM * Pioglitazone 15mg PO Daily * A1c = 9% on 07/16/17 ASSESSMENT: * Pt has been receiving ~ 60-70 units of insulin per day {while oral agents are on hold} with near adequate control. AM bsgs are in goal range but dinner and HS BSGs hyperglycemic d/t prednisone and insufficient NPH dosing. * SQ basal bolus insulin regimen changed from Lantus + NovoLog to NPH + NovoLog to match steroid induced hyperglycemia with once daily prednisone. * Prednisone tapering daily therefore I have been tapering the NPH daily per recommended weight/mg prednisone regimen dosing. * Rec dose of NPH is 0.4 units/kg for 40mg of prednisone. {gave NPH 32 units on 07/21 with 40mg prednisone but, BSGs 185, 265, 233, 264} * Rec dose of NPH is 0.3 units/kg for 30mg of prednisone. {gave NPH 24 units on 07/22 with 30mg prednisone but, BSGs 169, 111, 284, 296} * Rec dose of NPH is 0.2 units/kg for 20mg of prednisone. {gave NPH 32 units on 07/23 with 20mg prednisone but, BSGs 180, 226, 170, 217} * Patient appears more insulin resistant than typical weight based NPH/ prednisone dosing. * FDA has updated its recommendations on the use of metformin with renal impairment. It is appropriate to initiate metformin when eGFR >45 ml/min. If eGFR later falls below 45 ml/min the benefits/risks need assessed. The ADA and others suggest it is reasonable to decrease the dose by 50% (or use one-half the maximum recommended dose) and monitor renal function every 3 months in those with an eGFR less than 45 ml/min. Pt is currently appropriately ordered half dosing of metformin, however eGFR is hovering right around 30 ml/min- use with metformin is contraindicated with eGFR <30 ml/min. Will hold metformin with current calculated eGFR. PLAN FOR INPATIENT GLYCEMIC CONTROL: * Outpatient oral diabetes medications * Hold Glipizide * Hold Metformin * Continue Actos 15mg PO daily * Basal insulin * Continue 32 units (0.4 units/kg) to prednisone daily. * May need to lower dose tomorrow since today is the last dose of prednisone * Bolus insulin: tighten parameters for BSGs trending upwards throughout the day. Also, holding metformin for elevated Scr/decreased CrCl * NovoLog per scale ACHS or Q6hrs while NPO * Goal Range: Low 110 mg/dL - High 140 mg/dL * Correction Factor: 20 mg/dL/unit * Nutritional / Prandial insulin per carb ratio of 1 unit per 7 grams CHO consumed PLAN FOR DISCHARGE: * Pt may require basal insulin at discharge with A1c >9% * May consider d/c one oral outpatient agent (glipizide or actos) with the addition of basal insulin * Could consider once daily NPH in the morning since patient seems to have somewhat adequate basal insulin secretion from HS --> AM. Expensive, 24hr insulin (Lantus) may not be needed. * Could also consider NPH/regular pre-mixed insulin once daily in the morning with breakfast. * Both of these options are relatively inexpensive (~$25/vial at [facility])
--- NOTE | 2017-07-24 11:24 | Progress Note ---
Medicine Progress Note Date & Time of Visit: Jul 24, 2017 at 11:18. Subjective seen resting in bed, comfortable, in good spirits states she feels much better pain scale ids about 3/10, patient smiling, pleasant denies dizziness, weakness, chest pain, dyspnea, palpitations, abdominal pain, problems with urination/BM denies other symptoms states she is ready and would like to be discharged today no other symptoms Objective Last 8 Hrs Date Time Temp Pulse Resp B/P (MAP) Pulse Ox O2 Delivery O2 Flow Rate FiO2 07/24/17 10:14 36.6 70 19 94 Room Air 07/24/17 10:11 94 Room Air 07/24/17 08:38 70 133/50 (77) 07/24/17 07:03 36.6 62 19 180/80 (113) 91 Room Air Physical Exam: General- oriented x 3, not in distress, speaks in sentences with no effort Eyes- anicteric Neck- no JVD Lungs- clear breath sounds bilaterally, no rales/wheezes Heart- regular rhythm; no murmur, normal rate Abdomen- normal bowel sounds, soft, (+) NO LLQ tenderness Back- NO tenderness Extremities- no pretibial edema, no calf tenderness; peripheral pulses intact Neuro- alert, oriented x 3; no gross focal deficits Skin- warm & dry Laboratory Results: Last 24 Hours Test 07/23/17 11:26 07/23/17 16:40 07/23/17 20:19 07/24/17 06:11 Bedside Glucose 226 mg/dl 170 mg/dl 217 mg/dl Prothrombin Time 15.1 SECONDS Prothromb Time International Ratio 1.4 Sodium Level 138 mmol/L Potassium Level 4.3 mmol/L Chloride Level 104 mmol/L Carbon Dioxide Level 29 mmol/L Anion Gap 6.0 mmol/L Blood Urea Nitrogen 35 mg/dl Creatinine 1.47 mg/dl Est Creatinine Clear Calc Drug Dose 30.5 ml/min Estimated GFR () 39.8 Estimated GFR (Non- 34.3 BUN/Creatinine Ratio 23.9 Random Glucose 142 mg/dl Calcium Level 9.2 mg/dl Test 07/24/17 07:32 Bedside Glucose 141 mg/dl Assessment & Plan Patient is a 77yr female with a PMH of MS, DM II, HTN, HLD, CAD (s/p stents x 3 in 2008), hypothyroidism, h/o DVT (on coumadin) who presents with worsening lower back pain over the past few weeks. LOW BACK PAIN secondary to LUMBAR SPINE STENOSIS, RADICULOPATHY, LEFT SACROILIITIS Lumbar spine MRI with multilevel lumbosacral spondylosis/ spinal stenosis -- Pain Management consulted -- on Fentanyl Patch, Gapabentin, Tramadol, PRN Morphine -- : Epidural Steroid Injection Vit K given ASA held 07/22/17: SI Joint Injection -- pain significantly improved after SI joint injection [place] PRN ordered Nortryptiline added Gabapentin increased Morphine increased Fentanyl continued -- pain much better after SI joint injection PT: recommend to return home, use walker all the time -- Heparin for DVT proph given coumadin and aspirin also resumed -- ff up with [facility]- Dr. Durán in 1-2 weeks LLQ PAIN -- CT abdomen/Pelvis: no diverticulitis -- may be related to lumbar spine stenosis, sacroiliitis -- resolved CONSTIPATION -- added Senokot S -- Lactulose ordered PRN Dulcolax suppository -- resolved MARY on CKD III crea 1.4-1.5 -- Hold Lisinopril for now -- monitor crea as outpatient and resume Lisinopril accordingly DM II: hgb a1c:9.0, likely from recent prednisone use -- continue usual regimen monitor closely as outpatient CAD (s/p stents x 3): Asymptomatic ASA and coumadin resumed Hypothyroidism: Continue levothyroxine History of DVT: On chronic anticoagulation with coumadin given Vit K to reverse INR for Lumbar spine Injection -- INR 1.5 advised to take coumadin 5mg 07/24/17 then call Primary Care Physician/Coumadin Clinic 07/25/17 to request for INR check and advice on coumadin dose HTN: Stable, labile Hold Lisinopril secondary to MARY Nifedipine dose increased to 90mg daily -- continue to monitor as outpatient DVT Ppx: SCDs coumadin + heparin subcutaneously Code status: FULL PCP: Celi Disposition: d/c home with home health ff up with [facility]in Clinic 07/25 ff up with PCP in 1 week ff up with [facility] Dr. Durán in 1 week Current Inpatient Medications: Current Inpatient Medications Medications (Trade) Dose Ordered Sig/Love Route Start Time Stop Time Status Last Admin Dose Admin Miscellaneous (Iv Fluids Completed) 1 ea PRN PRN N/A 07/15/17 16:30 07/15/18 16:29 07/17/17 02:40 1 EA Acetaminophen (Tylenol Tab) 650 mg Q4H PRN PO 07/15/17 16:30 08/14/17 16:29 07/18/17 21:46 650 MG Ondansetron HCl (Zofran Inj) 4 mg Q6H PRN IV 07/15/17 16:30 08/14/17 16:29 07/24/17 05:20 4 MG Miscellaneous Information (Consult Glycemic Management Pharmacy) 1 ea UD PRN N/A 07/15/17 18:03 08/14/17 18:02 Insulin Aspart (novoLOG ASPART) SLIDING SCALE If C... ACHS SC 07/15/17 21:00 08/14/17 20:59 07/24/17 08:51 10 UNITS Glucose (Glucose 40% Gel) 15-30 GRAMS 15 GRAMS... UD PRN PO 07/15/17 17:00 08/14/17 16:59 Glucose (Glucose Chew Tab) 4-8 Tablets 4 Tabl... UD PRN PO 07/15/17 17:00 08/14/17 16:59 Dextrose (Dextrose 50% 50ML Syringe) 25-50ML OF 50% DW IV FOR... UD PRN IV 07/15/17 17:00 08/14/17 16:59 Glucagon (Glucagon Inj) 1 mg UD PRN SQ 07/15/17 17:00 08/14/17 16:59 Folic Acid (Folvite Tab) 400 mcg DAILY PO 07/16/17 08:00 08/15/17 07:59 07/24/17 08:42 400 MCG Levothyroxine Sodium (Synthroid Tab) 75 mcg DAILYBB PO 07/16/17 06:30 08/15/17 06:29 07/24/17 06:22 75 MCG Lisinopril (Zestril Tab) 20 mg DAILY PO 07/16/17 08:00 08/15/17 07:59 Future Hold 07/16/17 09:21 20 MG Pantoprazole Sodium (Protonix Tab) 40 mg DAILY PO 07/16/17 08:00 08/15/17 07:59 07/24/17 08:39 40 MG Ranitidine HCl (zANTac TAB) 150 mg BID PO 07/16/17 08:00 08/15/17 07:59 07/24/17 08:41 150 MG Ropinirole HCl (Requip Tab) 1 mg BID PO 07/16/17 08:00 08/15/17 07:59 07/24/17 08:39 1 MG Simvastatin (Zocor Tab) 20 mg HS PO 07/16/17 22:00 08/15/17 21:59 07/23/17 21:05 20 MG Cyanocobalamin (Vitamin B-12 Tab) 1,000 mcg DAILY PO 07/16/17 08:00 08/15/17 07:59 07/24/17 08:42 1,000 MCG Miscellaneous Information (Check Fentanyl Patch Placement) 1 ea QS N/A 07/16/17 00:00 08/15/17 00:00 07/24/17 08:00 1 EA Magnesium Hydroxide (Milk Of Magnesia Susp) 30 ml Q12H PRN PO 07/16/17 00:45 08/15/17 00:44 07/17/17 02:28 30 ML Polyethylene (Miralax Powder Packet) 17 gm DAILY PRN PO 07/16/17 00:45 08/15/17 00:44 07/16/17 17:34 17 GM Nifedipine (Procardia Xl Tab) 90 mg DAILY PO 07/17/17 08:00 08/15/17 07:59 07/24/17 08:40 90 MG Hydralazine HCl (HydrALAZINE INJ) 10 mg Q6H PRN IV. 07/16/17 14:00 08/15/17 13:59 07/24/17 07:19 10 MG Metformin HCl (Glucophage Tab) 500 mg DAILY PO 07/18/17 08:00 08/17/17 07:59 Future Hold 07/23/17 09:13 500 MG Pioglitazone HCl (ACTos TAB) 15 mg DAILY PO 07/18/17 08:00 08/17/17 07:59 07/24/17 08:42 15 MG Lidocaine (Lidoderm Patch 5%) 1 patch QAM TD 07/20/17 08:00 08/19/17 07:59 07/24/17 08:44 1 PATCH Miscellaneous (Remove Lidoderm Patch) 1 ea DAILY@21 N/A 07/19/17 21:00 08/18/17 20:59 07/23/17 21:05 1 EA Prednisone (PredniSONE TAB) 10 mg Taper QAM PO 07/21/17 08:00 07/25/17 07:59 07/24/17 08:40 10 MG Senna/Docusate Sodium (Senokot S Tab) 1 tab QAM PO 07/21/17 08:00 08/20/17 07:59 07/24/17 08:39 1 TAB Bisacodyl (Dulcolax Supp) 10 mg DAILY PRN [place] 07/20/17 15:15 08/19/17 15:14 Lactulose (Chronulac Syrup) 30 gm BID PRN PO 07/20/17 15:15 08/19/17 15:14 07/22/17 22:53 30 GM Morphine Sulfate (MoRPHine SULFATE INJ) 4 mg Q4H PRN IV 07/21/17 09:30 08/03/17 09:44 07/22/17 07:12 4 MG Clonidine HCl (Catapres Tab) 0.1 mg Q6H PRN PO 07/21/17 11:45 08/20/17 11:44 07/21/17 12:53 0.1 MG Gabapentin (Neurontin Cap) 900 mg TID PO 07/21/17 14:00 08/20/17 13:59 07/24/17 08:42 900 MG Nortriptyline HCl (Pamelor Cap) 10 mg HS PO 07/21/17 22:00 08/20/17 21:59 07/23/17 21:04 10 MG Acetaminophen/ Hydrocodone Bitart ([place] 5/325 Tab) 1 tab Q4H PRN PO 07/21/17 13:45 08/04/17 13:44 07/24/17 05:20 1 TAB Aspirin (Ecotrin Tab) 81 mg QAM PO 07/22/17 08:00 08/21/17 07:59 07/24/17 08:45 81 MG Heparin Sodium (Porcine) (Heparin Sq 5000 Unit/0.5ml) 5,000 unit Q8H SQ 07/23/17 09:00 08/22/17 08:59 07/24/17 00:29 5,000 UNIT Insulin Human NPH (novoLIN-N NPH) 32 units DAILY SC 07/23/17 08:40 08/22/17 08:39 07/24/17 08:53 32 UNITS Fentanyl (Duragesic Patch) 25 mcg Q3D@0900 TD 07/25/17 09:00 08/08/17 08:59 Miscellaneous (Fentanyl Patch Remove & Waste) 1 ea Q3D@0859 N/A 07/25/17 08:59 08/24/17 08:58 Miscellaneous Information (Check Fentanyl Patch Placement) 1 ea QS N/A 07/23/17 16:00 08/22/17 15:59 07/23/17 15:35 1 EA Warfarin Sodium (Coumadin Tab) 5 mg DAILY@16 PO 07/23/17 16:00 08/20/17 16:29 07/23/17 15:37 5 MG
[2017-07-24] MEDS ORDERED: WARF-285 PO (11:38)
[2017-07-24] MEDS ORDERED: SENN8.6T7 PO (11:39)
[2017-07-24] MEDS ORDERED: HYDR-5688 PO (11:39)
[2017-07-24] MEDS ORDERED: NORT10CA4 PO (11:39)
[2017-07-24] MEDS ORDERED: NRN600 PO (11:39)
[2017-07-24] MEDS ORDERED: PRCSR30 PO (11:39)
[2017-07-24] MEDS ORDERED: CMD5 PO (11:39)
--- NOTE | 2017-07-24 11:44 | Discharge Instructions ---
Discharge Instructions Date of Service Jul 24, 2017. Admission Reason for Admission: Chronic Lumbosacral Pain Discharge Discharge Diagnosis / Problem: LUMBAR SPINE STENOSIS, SACROILIITIS Discharge Goals Goal(s): Diagnostic testing, Therapeutic intervention Activity Recommendations Activity Limitations: as noted below (NO HEAVY EXERTION UNTIL RE-EVALUATED BY PRIMARY CARE PHYSICIAN) Lifting Limitations: until after follow-up appointment Exercise/Sports Limitations: until after follow-up appointment . Instructions / Follow-Up Instructions / Follow-Up PLEASE REVIEW YOUR NEW MEDICATION LIST AND FOLLOW INSTRUCTIONS CAREFULLY. NO BATHING IN THE TUB UNTIL FOLLOW UP WITH PRIMARY CARE PHYSICIAN. DRINK PLENTY OF FLUIDS. CALL YOUR PRIMARY CARE PHYSICIAN TOMORROW 07/25/17 TO REQUEST FOR REPEAT BLOODWORK (INR) AND FURTHER ADVICE REGARDING COUMADIN DOSING. FOLLOW UP WITH PRIMARY CARE PHYSICIAN IN 3-5 DAYS. FOLLOW UP WITH [facility] DR. CHRIS IN 1 WEEK. TEL NO. Current Hospital Diet Patient's current hospital diet: Diabetes Type 2 Diet, AHA Diet (Heart Healthy) Discharge Diet Recommended Diet: AHA Diet (Heart Healthy), Diabetes Type 2 Diet Procedures Procedures Performed: Left L4/L5 Lumbar Epidural steroid Injection; SI joint injection Pending Studies Studies pending at discharge: yes List of pending studies: CALL YOUR PRIMARY CARE PHYSICIAN TOMORROW 07/25/17 TO REQUEST FOR REPEAT BLOODWORK (INR) AND FURTHER ADVICE REGARDING COUMADIN DOSING. Laboratory Results Hemoglobin A1c Test 07/16/17 07:27 Range/Units Estimated Average Glucose 212 mg/dl Hemoglobin A1c 9.0 H 4.5-5.6 % Medical Emergencies . Who to Call and When: Medical Emergencies: If at any time you feel your situation is an emergency, please call 911 immediately. . Non-Emergent Contact Non-Emergency issues call your: Primary Care Provider, Specialist ([facility] Nurse) Call Non-Emergent contact if: you have a fever, your pain is not controlled, your pain is worsening, wound has increased drainage, wound has increased redness, wound has increased pain, you have any medication questions . . "Provider Documentation" section prepared by John Figueroa. . VTE Core Measure Inpt VTE Proph given/why not?: Warfarin (Coumadin)
--- NOTE | 2017-07-24 12:21 | Discharge Summary ---
Discharge Summary Date of Service Jul 24, 2017. Discharge Summary Admission Date: Jul 17, 2017 at 14:18 Discharge Date: Jul 24, 2017 Discharge Disposition: Home with services Principal Diagnosis: LOW BACK PAIN secondary to LUMBAR SPINE STENOSIS, RADICULOPATHY, LEFT SACROILIITIS Secondary Diagnoses/Problems: Please refer to hospital course below. Procedures: MRI OF THE LUMBAR SPINE WITHOUT IV CONTRAST CLINICAL HISTORY: Lumbar radiculopathy. COMPARISON STUDY: Abdominal CT dated 06/19/2017. TECHNIQUE: MRI of the lumbar spine is performed utilizing various T1 and T2-weighted sequences in the axial and sagittal planes. IV contrast was not administered for this examination. FINDINGS: Marrow signal intensity is heterogeneous. Vertebral body height is maintained throughout the lumbar spine. Minimal anterolisthesis is noted at L4-L5. Alignment is otherwise preserved. Small anterior osteophytes are seen throughout. The transverse and spinous processes appear intact. There is no evidence of spondylolysis. No destructive bony lesion is seen. Chronic degenerative endplate change is seen at all lumbar levels. No significant marrow edema is identified. Intervertebral discs: Degenerative disc desiccation and mild loss of height is seen throughout the lumbar spine. Spinal cord: The partially imaged spinal cord is normal in morphology and signal intensity. The conus medullaris terminates at the level of L1. The nerve roots of the cauda equina are normal in morphology. T12-L1: There is a small posterior disc bulge seen on the lateral projection. The central canal is clear. L1-L2: There is a posterior disc bulge eccentric to the left. There is no significant acquired compromise of the central canal. The disc bulge causes left-sided subarticular stenosis and may impinge on the exiting left L1 and the transiting left L2 nerve roots. The neural foramina are patent. L2-L3: There is a small posterior disc bulge. In conjunction with hypertrophy of the ligamentum flavum, there is minimal acquired compromise of the central canal with a minimum AP diameter of 9.5 mm. There is mild bilateral subarticular stenosis. The neural foramina are patent. L3-L4: There is posterior disc bulge with annular fissure. There is no significant acquired compromise of the central canal at this level. There is mild bilateral subarticular stenosis. Facet arthropathy causes minimal left neural foraminal stenosis. L4-L5: There is broad-based posterior disc bulge with annular fissure eccentric to the right. In conjunction with hypertrophy of the ligamentum flavum, this causes moderate acquired compromise of the central canal with a minimum AP diameter of 6 mm. There is bilateral subarticular stenosis, right greater than left with possible impingement on the exiting right L4 and both transiting nerve roots. There is minimal tethering of the cauda equina at this level. Facet arthropathy causes mild bilateral neural foraminal stenosis. L5-S1: There is a posterior disc bulge with annular fissure. There is no significant acquired compromise of the central canal at this level. There is bilateral subarticular stenosis with possible impingement on the exiting bilateral L5 and the transiting bilateral nerve roots. Facet arthropathy causes moderate bilateral neural foraminal stenosis. Sacrum: The visual sacrum is normal in morphology and signal intensity. Soft tissues: There is fatty atrophy of the paraspinous and iliopsoas musculature. The kidneys demonstrate cortical atrophy. The retroperitoneal structures are grossly unremarkable but incompletely assessed. IMPRESSION: 1. Multilevel lumbosacral spondylosis as above with acquired compromise of the central canal that is greatest at L4-L5. See discussion for detailed [id number]-[id number] analysis. 2. No destructive bony lesion is seen. THORACIC SPINE COMBO HISTORY: 77 years-old Female MS acute back pain which radiates into the left hip for approximately 3 weeks. History of multiple sclerosis. No reticular symptoms, injury or history of stroke. Concern for possible acute MS flare. COMPARISON: Lumbar spine MR 07/15/2017, CT abdomen and pelvis 06/19/2017, CT chest 06/04/2015 TECHNIQUE: Multiplanar multisequence MRI of the thoracic spine was obtained both with and without the use of 8 mL Gadavist FINDINGS: The large mviid-hd-irdp halal butcher localizer images demonstrate mild cardiomegaly without acute abnormality identified involving the head, neck or chest. Dependent bibasilar opacities suggest atelectasis. There is no focal bone marrow edema, fracture, subluxation or marrow replacing process. Signal within the thoracic spinal cord is within normal limits. No abnormal cord enhancement identified. Conus medullaris terminates at the L1 level. Moderate multilevel endplate spurring, intervertebral disc space narrowing and facet arthropathy is noted. Posterior annular disc bulging is most pronounced at the T10-T11 and T12-L1 levels where there is flattening of the ventral thecal sac without significant central canal narrowing. At T10-T11 on the right there is moderate right foraminal narrowing secondary to combination of facet arthropathy and broad-based posterior disc bulge with posterior spondylitic spurring. At T11-T12 there is mild right foraminal stenosis. No additional significant central canal or foraminal narrowing identified throughout the thoracic spine. IMPRESSION: 1. Normal signal within the cord without abnormal signal abnormalities or enhancement to suggest multiple sclerosis. 2. Multilevel endplate spurring, intervertebral disc space narrowing and facet arthropathy as above, most pronounced at the T10-T11 and T12-L1 levels as detailed above. 3. No fracture, subluxation or focal bone marrow edema. CERVICAL SPINE COMBO HISTORY: 77 years-old Female MS follow-up study in a patient with multiple sclerosis. Acute back pain. COMPARISON: Brain MRI and thoracic spine MRI of same day TECHNIQUE: Multiplanar multisequence MRI of the cervical spine was obtained both with and without the use of 8 mL Gadavist utilizing institutional multiple sclerosis protocol FINDINGS: The large nlvpv-hh-gbpu halal butcher localizer images demonstrate no gross abnormality. There is no cerebellar tonsillar herniation identified. Signal within the cervical spinal cord is within normal limits. No abnormal enhancement identified. There is no focal bone marrow edema, marrow replacing process, fracture or subluxation. Multilevel spondylitic changes, intervertebral disc space narrowing, disc bulging and facet arthropathy noted as below. C2-C3: Moderate intervertebral disc space narrowing with spondylitic spurring and moderate facet arthropathy. Broad-based posterior disc bulge flattens the ventral thecal sac. No central canal or foraminal narrowing. C3-C4: Moderate intervertebral disc space narrowing with posterior spondylitic spurring and moderate facet arthropathy. There is mild left foraminal stenosis. The central canal and right foramen are patent. Mild flattening of the ventral thecal sac. C4-C5: Moderate intervertebral disc space narrowing with broad-based posterior disc osteophyte complex and moderate facet arthrosis causes mild central canal, mild right and mild to moderate right foraminal stenosis. C5-C6: Moderate intervertebral disc space narrowing with broad-based posterior disc osteophyte complex favoring the left lateral recess and left foramen is noted in addition to moderate facet arthropathy. There is mild central canal, moderate left lateral recess and mild to moderate left foraminal narrowing. Mild right foraminal stenosis. C6-C7: Mild to moderate intervertebral disc space narrowing with mild to moderate facet arthropathy. Broad-based posterior disc osteophyte complex flattens the ventral thecal sac without significant central canal or foraminal narrowing. C7-T1: Mild to moderate intervertebral disc space narrowing with posterior spondylitic spurring and broad-based posterior disc bulge with moderate facet arthropathy. Flattening of the ventral thecal sac without significant central canal or foraminal stenosis. Mild endplate changes are seen within the imaged upper thoracic spine. IMPRESSION: 1. Normal signal within the cervical spinal cord without evidence of the demyelinating disease or abnormal enhancement. 2. No bone marrow or soft tissue edema, acute fracture or subluxation. 3. Multilevel discogenic degenerative changes and facet arthropathy as detailed level by level above with varying degrees of central canal and foraminal narrowing, most pronounced at the C4-C5 and C5-C6 levels. BRAIN COMBO FOR MS HISTORY: 77 years-old Female MS acute back pain with history of multiple sclerosis. Concern for acute multiple sclerosis flareup. COMPARISON: MRI of the brain 11/06/2015 TECHNIQUE: Multiplanar multisequence MRI the brain was obtained both with and without the use of 8 mL Gadavist utilizing multiple sclerosis institutional protocol FINDINGS: The large upmbi-ly-lsys localizer images demonstrate no gross abnormality. There is a focal area of increased signal involving the right adame radiata on the diffusion-weighted sequence image 13 series 7 measuring 5 x 4 mm which corresponds with a focal area of increased T2/FLAIR signal within this distribution. No decreased signal on the ADC map. There is suggestion of mild enhancement within this region as seen on image 13 series 35, image 13 series 36 and image 13 series 34. The midline structures including the corpus callosum, brainstem, optic chiasm, pituitary and pineal glands are unremarkable on the sagittal T1 sequence. No cerebellar tonsillar herniation. Degenerative changes are seen involving the imaged upper cervical spine. There is no acute intracranial hemorrhage, midline shift, abnormal extra-axial collections or hydrocephalus. No intracranial mass identified. Mild to moderate cerebral and cerebellar atrophy. There is no abnormal enhancement identified. Patchy and confluent areas of T2/FLAIR prolongation are again seen within the subcortical, deep and periventricular white matter of the cerebral hemispheres bilaterally. No infratentorial lesions are identified. The pattern of disease appears generally stable from prior study with the exception of the single focus of increased T2/FLAIR signal within the right adame radiata, as described above. The major flow voids at the level of the skull base appear patent. Moderate left and small right mastoid effusions. Mild ethmoid sinus disease. Soft tissues are unremarkable. The calvarium and scalp are within normal limits. IMPRESSION: 1. Within the right adame radiata there is a 5 x 4 mm area of mildly increased signal on the T2, FLAIR and diffusion-weighted sequences, with normal signal on the ADC map demonstrating mild ill-defined enhancement. This is a nonspecific finding with differential considerations including a subacute lacunar infarction or T2 shine through with an active demyelinating plaque. Correlate with patient presentation and history. 2. Atrophy with redemonstration of otherwise stable patchy and confluent T2/FLAIR signal abnormalities within the cerebral hemispheres bilaterally as above suggesting chronic microvascular ischemic changes and/or demyelinating disease. 3. Moderate left and small right mastoid effusions. ADDENDUM Impression #4- Moderate thickening of the left piriformis musculature appears unchanged from comparison study suggesting chronic piriformis syndrome. Correlate with patient history. Electronically signed by: Hal Pratt M.D. 07/20/2017 5:19 PM Dictated Date/Time: 07/20/2017 5:18 PM ORIGINAL REPORT ABDOMEN AND PELVIS CT WITHOUT CONTRAST CT DOSE: 877.57 mGy.cm HISTORY: Acute left lower quadrant abdominal pain with concern for possible acute diverticulitis. r/o diverticulitis TECHNIQUE: Multiaxial CT images of the abdomen and pelvis were performed without contrast. A dose lowering technique was utilized adhering to the principles of ALARA. COMPARISON STUDY: Spot fluoroscopic images from epidural injection of same day, CT abdomen and pelvis 06/19/2017. FINDINGS: The imaged lung bases are generally clear with mild dependent bibasilar atelectasis and/or minimal pleural parenchymal scarring. There is no pneumoperitoneum identified. Imaged inferior cardiac chambers are unremarkable. Coronary arterial calcifications are noted. Evaluation of the solid abdominal organs is limited without use of contrast. Within the limitations of the study, the liver, and adrenal glands are unremarkable. Prior cholecystectomy. No intrahepatic biliary ductal dilation. There are a few scattered nonspecific calcifications throughout the splenic parenchyma. Moderate to extensive diffuse pancreatic atrophy. Nonspecific perinephric stranding is present bilaterally. There are at least 3 nonobstructing calculi of the right kidney, largest of which measures 4 mm within the interpolar right kidney. No definite left-sided renal calculi, ureteral calculi or obstructive uropathy. Mild nonspecific perinephric stranding is again seen. Urinary bladder is partially collapsed. Prior hysterectomy. Abdominal aorta is normal in course and caliber with moderate atrophy chronic plaquing. No bulky adenopathy. There is no bowel obstruction or focal bowel wall thickening. There is mild colonic diverticulosis without CT evidence of acute diverticulitis. The appendix is not definitively visualized. No secondary signs of acute appendicitis. Injection granulomas of the gluteal tissues noted. There is a moderate amount of air in the posterior epidural space extending from L3-L4 through the lower sacrum. Mild amount of air is also seen tracking along the neurovascular bundle within the left sciatic notch and adjacent to the left Piriformis musculature. No associated significant inflammatory stranding identified. No focal fluid collections. Degenerative changes are noted throughout the spine and pelvis. The bones appear osteopenic. IMPRESSION: 1. Moderate amount of air within the posterior epidural space extends from L3-L4 through the lower sacrum with mild amount of air also noted tracking along the neurovascular bundle of the left sciatic notch and tracking along the left Piriformis musculature. This is likely related to patient's recent epidural injection. No associated soft tissue collection or significant inflammatory changes. 2. Mild colonic diverticulosis without diverticulitis. 3. Nonobstructing right-sided nephrolithiasis. LEFT HIP 2 VIEWS CLINICAL HISTORY: Left hip and groin pain. FINDINGS: AP and frog-leg views of the left hip are compared to study dated 06/19/2017. The skeletal structures are osteopenic. No fracture is seen in the left hip or the visualized left hemipelvis. Mild arthritic change and joint space narrowing are observed in the left hip. Enthesophytes arise from the greater trochanter of left femur and the left anterior superior iliac spine. The left sacroiliac joint is normal as imaged. The overlying soft tissues are within normal limits. A calcified granuloma is noted in the left gluteal region. IMPRESSION: Osteopenia and mild arthritic change as above. No acute bony abnormality seen in the left hip and there has been no significant change from 06/19/2017. Consultations: Pain Management Dr. Durán, Neurologist Dr. Pierce Pending Studies/Follow-Up: Please refer to hospital course below. Medication Reconciliation New Medications: Gabapentin (Gabapentin) 600 Mg Tab 1.5 TAB PO TID for 30 Days, #45 TABS 0 Refills Hydrocodone/Acetaminophen 5MG/325MG (Moshannon 5MG/325MG) Tab 1 TAB PO Q4H PRN for Pain for 7 Days, #15 TAB 0 Refills PRN PAIN Nifedipine (Adalat Cc Ext Rel) 30 Mg Tab 90 MG PO DAILY for 30 Days, #90 TAB 2 Refills Nortriptyline HCl (Nortriptyline HCl) 10 Mg Cap 10 MG PO HS for 15 Days, #15 CAP 0 Refills Sennosides-Docusate Sodium (Senokot S) 1 Tab Tab 1 TAB PO QAM for 15 Days, #15 TAB 2 Refills Warfarin Sod (Coumadin) 5 Mg Tab 5 MG PO UD for 1 Day take 1 tab on 07/24/17 Changed Medications: Warfarin Sodium (Warfarin Sodium) 3 Mg Tab 1 TAB PO UD for 30 Days (Medication details modified) resume taking 3mg po daily on 07/25/17; call Primary Care Physician on 07/25/17 for repeat INR and further advice on coumadin dose Continued Medications: Aspirin (Aspirin Ec) 81 Mg Tab 81 MG PO DAILY Biotin (Biotin 5000) 5 Mg Cap 1 CAP PO QAM Cholecalciferol (D3-50) 50,000 Unit Cap 1 CAP PO WK Cyanocobalamin (Vitamin B12) 1,000 Mcg Tab 1 TAB PO DAILY Fentanyl (Fentanyl) 25 Mcg Tdsy 1 PATCH TD [id number] Fingolimod Hcl (Gilenya) 0.5 Mg Cap 1 CAP PO DAILY Folic Acid (Folvite) 400 Mcg Tab 400 MCG PO DAILY, TAB Glipizide (Glipizide) 10 Mg Tab 1 TAB PO BID Levothyroxine Sodium (Levothyroxine Sodium) 75 Mcg Tab 1 TAB PO DAILY Metformin HCl (Metformin HCl) 500 Mg Tab 1 TAB PO DAILY Nitroglycerin (Nitroglycerin) 0.4 Mg/Hr Dis PRN for Chest Pain Pantoprazole (Pantoprazole Sodium) 40 Mg Tab 1 TAB PO DAILY Pioglitazone Hcl (Pioglitazone Hcl) 15 Mg Tab 1 TAB PO DAILY Ranitidine HCl (Ranitidine HCl) 150 Mg Tab 1 TAB PO BID Ropinirole HCl (Ropinirole HCl) 1 Mg Tab 1 TAB PO BID Simvastatin (Zocor) 20 Mg Tab 1 TAB PO HS, TAB Valerian (Valeriana Officinali (Valerian Root) 530 Mg Cap 1 CAP PO HS Discontinued Medications: Gabapentin (Gabapentin) 800 Mg Tab 1 TAB PO BID Lisinopril (Prinivil) 20 Mg Tab 1 TAB PO DAILY, TAB Nifedipine (Procardia Xl Ext Rel) 60 Mg Tab 1 TAB PO DAILY Tramadol HCl (Tramadol HCl) 50 Mg Tab 1 TAB PO PRN for Pain Admission Information HPI (per Admitting provider): This is a 77yo F with a PMH of MS, DM II, HTN, HLD, CAD (s/p stents x 3 in 2008) , hypothyroidism, h/o DVT (on coumadin) who presents with worsening lower back pain over the past few weeks. Patient reports chronic lower back pain, but it has progressed in severity over the last few weeks. Was evaluated in the ER for similar symptoms 2 weeks ago and was discharged on a steroid taper, which helped somewhat. Over the last few days, pain has become sharper with radiation to L hip as well. Has also noticed weakness in her L leg with her "foot dragging " while ambulating with walker. Patient follows with Dr Pierce for MS. States that recent L leg weakness is similar to previous MS flares. Usually experiences worsening symptoms with weather changes. Denies any numbness/tingling in extremities or changes with bowel/bladder function. Patient is blind in both eyes. Takes Gilenya daily. Denies any fever, chills, URI symptoms, CP, palpitations, SOB, nausea, vomiting , dysuria, LE swelling. Physical Exam (per Admitting): General Appearance: + mild distress Head: normocephalic, atraumatic Eyes: normal inspection (Blind in both eyes), PERRL, sclerae normal ENT: normal ENT inspection, hearing grossly normal, pharynx normal (moist mucous membranes ) Neck: supple, thyroid normal, trachea midline Respiratory/Chest: chest non-tender, lungs clear, normal breath sounds, no respiratory distress, no accessory muscle use Cardiovascular: regular rate, rhythm, no murmur Abdomen/GI: normal bowel sounds, soft, no organomegaly, + tenderness ( Diffusely tender) Back: normal inspection, no muscle spasm, + pertinent finding (TTP of lumbosacral spine and paraspinal muscles.) Extremities/Musculoskelatal: no calf tenderness, no pedal edema, non-tender Neurologic/Psych: filling and packing supervisor II-XII nml as tested, alert, normal mood/affect, oriented x 3, + motor weakness (L LE weakness. Otherwise normal MARIELA in BUE and RLE ) Skin: normal color, warm/dry, no rash Hospital Course Patient is a 77yr female with a PMH of MS, DM II, HTN, HLD, CAD (s/p stents x 3 in 2008), hypothyroidism, h/o DVT (on coumadin) who presents with worsening lower back pain over the past few weeks. LOW BACK PAIN secondary to LUMBAR SPINE STENOSIS, RADICULOPATHY, LEFT SACROILIITIS --Lumbar spine MRI with multilevel lumbosacral spondylosis/ spinal stenosis (Full Reports in the Procedure Section above) -- Pain Management consulted- Dt. Welch, Dr. Durán -- placed on Fentanyl Patch, Gapabentin, Tramadol, PRN Morphine -- : Left L4/L5 Lumbar Epidural steroid Injection Vit K given ASA held 07/22/17: SI Joint Injection -- pain significantly improved after SI joint injection Moshannon PRN ordered Nortryptiline added Gabapentin increased Morphine increased Fentanyl continued -- pain much better after SI joint injection continue Fentanyl patch, PRN Moshannon, Nortriptyline, Gabapentin increased PT: recommend to return home, use walker all the time -- Heparin for DVT proph given coumadin and aspirin also resumed -- ff up with [facility]- Dr. Durán in 1-2 weeks LLQ PAIN -- CT abdomen/Pelvis: no diverticulitis -- may be related to lumbar spine stenosis, sacroiliitis -- resolved CONSTIPATION -- added Senokot S -- Lactulose ordered PRN Dulcolax suppository -- resolved MARY on CKD III crea 1.4-1.5 -- Hold Lisinopril for now -- monitor crea as outpatient and resume Lisinopril accordingly DM II: hgb a1c:9.0, likely from recent prednisone use -- continue usual regimen monitor closely as outpatient CAD (s/p stents x 3): Asymptomatic ASA and coumadin resumed Hypothyroidism: Continue levothyroxine History of DVT: On chronic anticoagulation with coumadin given Vit K to reverse INR for Lumbar spine Injection -- INR 1.5 advised to take coumadin 5mg 07/24/17 then call Primary Care Physician/Coumadin Clinic 07/25/17 to request for INR check and advice on coumadin dose HTN: Stable, labile Hold Lisinopril secondary to MARY Nifedipine dose increased to 90mg daily -- continue to monitor as outpatient DVT Ppx: SCDs coumadin + heparin subcutaneously Code status: FULL PCP: Celi Disposition: d/c home with home health ff up with [facility] Clinic 07/25 ff up with PCP in 1 week ff up with [facility] Dr. Durán in 1 week Total time spent on discharge = 50 mins This includes examination of the patient, discharge planning, medication reconciliation, and communication with other providers. Discharge Instructions Discharge Instructions Date of Service Jul 24, 2017. Admission Reason for Admission: Chronic Lumbosacral Pain Discharge Discharge Diagnosis / Problem: LUMBAR SPINE STENOSIS, SACROILIITIS Discharge Goals Goal(s): Diagnostic testing, Therapeutic intervention Activity Recommendations Activity Limitations: as noted below (NO HEAVY EXERTION UNTIL RE-EVALUATED BY PRIMARY CARE PHYSICIAN) Lifting Limitations: until after follow-up appointment Exercise/Sports Limitations: until after follow-up appointment . Instructions / Follow-Up Instructions / Follow-Up PLEASE REVIEW YOUR NEW MEDICATION LIST AND FOLLOW INSTRUCTIONS CAREFULLY. NO BATHING IN THE TUB UNTIL FOLLOW UP WITH PRIMARY CARE PHYSICIAN. DRINK PLENTY OF FLUIDS. CALL YOUR PRIMARY CARE PHYSICIAN TOMORROW 07/25/17 TO REQUEST FOR REPEAT BLOODWORK (INR) AND FURTHER ADVICE REGARDING COUMADIN DOSING. FOLLOW UP WITH PRIMARY CARE PHYSICIAN IN 3-5 DAYS. FOLLOW UP WITH FINAL TESTER DR. DURÁN IN 1 WEEK. TEL NO. Current Hospital Diet Patient's current hospital diet: Diabetes Type 2 Diet, AHA Diet (Heart Healthy) Discharge Diet Recommended Diet: AHA Diet (Heart Healthy), Diabetes Type 2 Diet Procedures Procedures Performed: Left L4/L5 Lumbar Epidural steroid Injection; SI joint injection Pending Studies Studies pending at discharge: yes List of pending studies: CALL YOUR PRIMARY CARE PHYSICIAN TOMORROW 07/25/17 TO REQUEST FOR REPEAT BLOODWORK (INR) AND FURTHER ADVICE REGARDING COUMADIN DOSING. Laboratory Results Hemoglobin A1c Test 07/16/17 07:27 Range/Units Estimated Average Glucose 212 mg/dl Hemoglobin A1c 9.0 H 4.5-5.6 % Medical Emergencies . Who to Call and When: Medical Emergencies: If at any time you feel your situation is an emergency, please call 911 immediately. . Non-Emergent Contact Non-Emergency issues call your: Primary Care Provider, Specialist (Panel Builder) Call Non-Emergent contact if: you have a fever, your pain is not controlled, your pain is worsening, wound has increased drainage, wound has increased redness, wound has increased pain, you have any medication questions . . "Provider Documentation" section prepared by John Figueroa. . VTE Core Measure Inpt VTE Proph given/why not?: Warfarin (Coumadin)
[2017-07-25] MEDS ORDERED: FENTANYL PATCH REMOVE & WASTE SCH (08:59)
[2017-07-25] MEDS ORDERED: FENTANYL 25 MCG/HR TDSY TD SCH (09:00)
== END 2017-07-24 13:07 | disposition home health service (06) | DRG 552 ==
LOC: C.EDB 12:06 → C.MS4W 16:18 → ENRESERV 16:59 → OBSVTOIN 07-17 14:18
PROVIDERS: ADMIT Family Medicine; ATTEND Internal Medicine
PROC: 3E0S33Z Introduction of Anti-inflammatory into Epidural Space, Percutaneous Approach (ICD-10-PCS; principal; 2017-07-20 08:45)
PROC: 3E0U33Z Introduction of Anti-inflammatory into Joints, Percutaneous Approach (ICD-10-PCS; 2017-07-22)
PROC: 3E0U3BZ Introduction of Anesthetic Agent into Joints, Percutaneous Approach (ICD-10-PCS; 2017-07-22)
DX: M51.16 Intervertebral disc disorders with radiculopathy, lumbar region (principal); N17.9 Acute kidney failure, unspecified; M48.062 Spinal stenosis, lumbar region with neurogenic claudication; M47.26 Other spondylosis with radiculopathy, lumbar region; M46.1 Sacroiliitis, not elsewhere classified; G35 Multiple sclerosis; G25.0 Essential tremor; E87.5 Hyperkalemia; R10.32 Left lower quadrant pain; K59.00 Constipation, unspecified; E11.9 Type 2 diabetes mellitus without complications; I12.9 Hypertensive chronic kidney disease with stage 1 through stage 4 chronic kidney disease, or unspecified chronic kidney disease; N18.3 Chronic kidney disease, stage 3 (moderate); I25.10 Atherosclerotic heart disease of native coronary artery without angina pectoris; E03.9 Hypothyroidism, unspecified; E78.5 Hyperlipidemia, unspecified; H47.013 Ischemic optic neuropathy, bilateral; Z86.718 Personal history of other venous thrombosis and embolism; Z95.5 Presence of coronary angioplasty implant and graft; Z79.01 Long term (current) use of anticoagulants; Z79.82 Long term (current) use of aspirin; Z79.84 Long term (current) use of oral hypoglycemic drugs; Z79.891 Long term (current) use of opiate analgesic; Z79.899 Other long term (current) drug therapy; Z83.3 Family history of diabetes mellitus; Z82.49 Family history of ischemic heart disease and other diseases of the circulatory system

== ENCOUNTER 2017-08-31 13:55 | Emergency (ER) | payer OTHER, BC ==
[~2017-08-31] VITALS: Ht 152.4 cm; Wt 82.0 kg
[~2017-08-31 13:55] MED LIST changes: -CLON1TAB3 PO; +CMD5 PO; -FOLI1TAB7 PO; +FOLI400T41 PO; +GABA-113 PO; +HYDR-5688 PO; -LISI20TA3 PO; -LSN20 PO; -METO-551 PO; -NIFE60TA55 PO; -NRN800 PO; +PRCSR30 PO; -PRED10TA PO; +SENN8.6T7 PO; -ULT50 PO
[2017-08-31 13:58] VITALS: TEMP 36.7; Ht 152.4 cm; Wt 82.0 kg
[2017-08-31 14:28] VITALS: O2SAT 97
--- NOTE | 2017-08-31 15:17 | EMERGENCY ROOM VISIT NOTE ---
History Report prepared by Altaf: Angela Cruz Under the Supervision of: Dr. Blanka Dodge M.D. First contact with patient: 15:09 Chief Complaint: NEURO SYMPTOMS Stated Complaint: MS, LAZY RT LEG Nursing Triage Summary: spouse reports when pt awoke this am did not recognize him and grandkids. had right foot drop last approx 2 hours . smile equal unable to tell what town knows at hospital and [facility] History of Present Illness The patient is a 77 year old female who presents to the Emergency Room with complaints of neurological symptoms beginning at 0800 this morning. Per her family, the patient woke up at 0800 this morning and did not recognize her grandchildren or family. Her family states that the patient has MS and that she was dragging her leg this morning, but that this does happen sometimes when she has an MS flare-up. Her family states that the patient's symptoms lasted for about 2 hours, and that her symptoms started to get better as the day went on. The patient denies having vomiting, diarrhea, urinary symptoms, and recent stresses. She reports that she had toast with jelly and water during the 2 hours she had her symptoms. The patient's family states that the patient has a history of hypertension and diabetes. Source of History: patient, family Onset: 0800 this morning Position: other (global) Quality: other (neurological symptoms) Timing: intermittent Associated Symptoms: No vomiting, No diarrhea, No urinary symptoms Review of Systems See HPI for pertinent positives & negatives. A total of 10 systems reviewed and were otherwise negative. Past Medical & Surgical Medical Problems: (1) Blindness of both eyes (2) Chronic lumbosacral pain (3) Diabetes (4) DVT (deep venous thrombosis) (5) Heart disease (6) HTN (hypertension) (7) MS (multiple sclerosis) (8) Multiple sclerosis exacerbation Surgical Problems: (1) Hx of cholecystectomy (2) Stented coronary artery Family History Diabetes mellitus FHx: heart disease Hypertension Social History Smoking Status: Never Smoker Alcohol Use: none Drug Use: none Marital Status: Housing Status: lives with significant other Occupation Status: retired Current/Historical Medications Scheduled Aspirin (Aspirin Ec), 81 MG PO DAILY Biotin (Biotin 5000), 1 CAP PO QAM Cholecalciferol (D3-50), 1 CAP PO WK Cyanocobalamin (Vitamin B12), 1 TAB PO DAILY Fentanyl (Fentanyl), 1 PATCH TD [id number] Fingolimod Hcl (Gilenya), 1 CAP PO DAILY Folic Acid (Folvite), 400 MCG PO DAILY Gabapentin (Neurontin), 300 MG PO TID Glipizide (Glipizide), 1 TAB PO BID Levothyroxine Sodium (Levothyroxine Sodium), 1 TAB PO DAILY Lisinopril (Lisinopril), 20 MG PO QAM Metformin HCl (Metformin HCl), 1 TAB PO DAILY Nifedipine (Nifedipine Er), 30 MG PO TID Pantoprazole (Pantoprazole Sodium), 1 TAB PO DAILY Ranitidine HCl (Ranitidine HCl), 1 TAB PO BID Ropinirole HCl (Ropinirole HCl), 1 TAB PO BID Sennosides-Docusate Sodium (Senokot S), 1 TAB PO QAM Simvastatin (Zocor), 1 TAB PO HS Valerian (Valeriana Officinali (Valerian Root), 1 CAP PO HS Warfarin Sod (Jantoven), 2 MG PO 2XWK Warfarin Sod (Jantoven), 3 MG PO 5XWK Scheduled PRN Hydrocodone/Acetaminophen 5MG/325MG ([place] 5MG/325MG), 1 TAB PO Q4H PRN for Pain Nitroglycerin (Nitroglycerin), for Chest Pain Promethazine (Phenergan ), 12.5 MG PO QAM PRN for Nausea Allergies Coded Allergies: Allopurinol (Unverified Allergy, Unknown, COUGH, 08/31/17) [place] Blue FCF (Verified Allergy, Unknown, UNKNOWN, 06/19/17) Dimethyl Fumarate (Verified Allergy, Unknown, UNKNOWN, 06/19/17) Physical Exam Vital Signs Date Time Temp Pulse Resp B/P (MAP) Pulse Ox O2 Delivery O2 Flow Rate FiO2 08/31/17 19:10 67 18 135/66 95 08/31/17 18:19 69 18 135/66 95 Room Air 08/31/17 18:19 67 08/31/17 17:29 72 20 143/68 96 Room Air 08/31/17 16:43 71 24 154/62 95 Room Air 08/31/17 15:30 74 24 172/86 94 Room Air 08/31/17 14:28 97 Room Air 08/31/17 14:27 71 20 148/82 98 08/31/17 14:20 72 08/31/17 13:58 36.7 74 18 155/77 97 Room Air Physical Exam Vital signs reviewed. General: Elderly-appearing female, obese, well-appearing, in no significant distress. HEENT: No scleral icterus, PERRLA, neck supple. Atraumatic. Cardiovascular: Regular rate and rhythm, no extra sounds. Pulmonary: Clear to auscultation bilaterally, normal work of breathing. Abdomen: Soft, nontender, nondistended, positive bowel sounds. Musculoskeletal: Atraumatic, no peripheral edema. Neurologic: Patient awake alert and oriented x 3. 4/5 strength to right lower extremity, 5/5 strength to left lower extremity. Cranial nerves 2 through 12 grossly intact. Skin: Warm, dry, no rash Medical Decision & Procedures ER Provider Diagnostic Interpretation: Radiology results as stated below per my review and radiologist interpretation: CHEST ONE VIEW PORTABLE CLINICAL HISTORY: 77 years-old Female presenting with CVA Sx. TECHNIQUE: Portable upright AP view of the chest was obtained. COMPARISON: 12/11/2013. FINDINGS: Atherosclerosis of the aortic arch. Cardiac silhouette normal in size. Lungs and pleural spaces clear. Degenerative changes of the thoracic spine. Upper abdomen normal. IMPRESSION: 1. No acute cardiopulmonary disease. Electronically signed by: Roland Koenig M.D. 08/31/2017 3:41 PM Dictated Date/Time: 08/31/2017 3:[address] SCAN OF THE BRAIN WITHOUT IV CONTRAST CLINICAL HISTORY: Strokelike symptoms. COMPARISON STUDY: CT of the brain dated 12/30/2008. TECHNIQUE: Unenhanced axial CT scan of the brain is performed from the vertex to the skull base. A dose lowering technique was utilized adhering to the principles of ALARA. CT DOSE: 921.40 mGy.cm FINDINGS: Brain parenchyma: There are age-related involutional changes noting moderate subcortical and periventricular microangiopathic change. There is no hemorrhage, mass effect, or evidence of acute territorial ischemia by CT criteria. Helms-white matter is preserved. No extra-axial fluid collection is seen. Ventricles, sulci, cisterns: Prominent secondary to involutional change. Intracranial vasculature: There is atherosclerotic calcification of the cavernous carotid and vertebral arteries. Calvarium: Unremarkable. Sinuses and mastoids: The visualized paranasal sinuses are clear. There is a trace left mastoid effusion. The right mastoid air cells are well pneumatized. Orbits: The bony orbits are grossly intact. IMPRESSION: There is no hemorrhage, mass effect, or evidence of acute territorial ischemia by CT criteria. Electronically signed by: Marty Hester M.D. 08/31/2017 4:36 PM Dictated Date/Time: 08/31/2017 4:32 PM Laboratory Results 08/31/17 15:51 Red Blood Count 3.38, Mean Corpuscular Volume 93.8, Mean Corpuscular Hemoglobin 32.5, Mean Corpuscular Hemoglobin Concent 34.7, Mean Platelet Volume 10.3, Neutrophils (%) (Auto) 79.7, Lymphocytes (%) (Auto) 3.4, Monocytes (%) (Auto) 14.2, Eosinophils (%) (Auto) 2.3, Basophils (%) (Auto) 0.2, Neutrophils # (Auto ) 4.49, Lymphocytes # (Auto) 0.19, Monocytes # (Auto) 0.80, Eosinophils # (Auto ) 0.13, Basophils # (Auto) 0.01 08/31/17 15:51 Test 08/31/17 15:51 08/31/17 18:18 White Blood Count 5.63 K/uL (4.8-10.8) Red Blood Count 3.38 M/uL (4.2-5.4) Hemoglobin 11.0 g/dL (12.0-16.0) Hematocrit 31.7 % (37-47) Mean Corpuscular Volume 93.8 fL (80-100) Mean Corpuscular Hemoglobin 32.5 pg (25-34) Mean Corpuscular Hemoglobin Concent 34.7 g/dl (32-36) Platelet Count 285 K/uL (130-400) Mean Platelet Volume 10.3 fL (7.4-10.4) Neutrophils (%) (Auto) 79.7 % Lymphocytes (%) (Auto) 3.4 % Monocytes (%) (Auto) 14.2 % Eosinophils (%) (Auto) 2.3 % Basophils (%) (Auto) 0.2 % Neutrophils # (Auto) 4.49 K/uL (1.4-6.5) Lymphocytes # (Auto) 0.19 K/uL (1.2-3.4) Monocytes # (Auto) 0.80 K/uL (0.11-0.59) Eosinophils # (Auto) 0.13 K/uL (0-0.5) Basophils # (Auto) 0.01 K/uL (0-0.2) RDW Standard Deviation 50.6 fL (36.4-46.3) RDW Coefficient of Variation 14.8 % (11.5-14.5) Immature Granulocyte % (Auto) 0.2 % Immature Granulocyte # (Auto) 0.01 K/uL (0.00-0.02) Urine Color YELLOW Urine Appearance CLEAR (CLEAR) Urine pH 5.0 (4.5-7.5) Urine Specific [place] 1.034 (1.000-1.030) Urine Protein NEG (NEG) Urine Glucose (UA) 3+ (NEG) Urine Ketones NEG (NEG) Urine Occult Blood NEG (NEG) Urine Nitrite NEG (NEG) Urine Bilirubin NEG (NEG) Urine Urobilinogen NEG (NEG) Urine Leukocyte Esterase TRACE (NEG) Urine WBC (Auto) 10-30 /hpf (0-5) Urine RBC (Auto) 0-4 /hpf (0-4) Urine Hyaline Casts (Auto) 1-5 /lpf (0-5) Urine Epithelial Cells (Auto) >30 /lpf (0-5) Urine Bacteria (Auto) NEG (NEG) Anion Gap 10.0 mmol/L (3-11) Est Creatinine Clear Calc Drug Dose 33.1 ml/min Estimated GFR () 43.3 Estimated GFR (Non- 37.4 BUN/Creatinine Ratio 17.3 (10-20) Calcium Level 9.2 mg/dl (8.5-10.1) Magnesium Level 1.7 mg/dl (1.8-2.4) Total Bilirubin 0.2 mg/dl (0.2-1) Direct Bilirubin mg/dl (0-0.2) Aspartate Amino Transf (AST/SGOT) 15 U/L (15-37) Alanine Aminotransferase (ALT/SGPT) 26 U/L (12-78) Alkaline Phosphatase 57 U/L (45-117) Total Creatine Kinase 68 U/L (26-192) Creatine Kinase MB 0.7 ng/ml (0.5-3.6) Creatine Kinase MB Ratio 1.0 (0-3.0) Total Protein 6.5 gm/dl (6.4-8.2) Albumin 3.0 gm/dl (3.4-5.0) Beta-Hydroxybutyric Acid 0.87 mg/dL (0.2-2.81) Thyroid Stimulating Hormone (TSH) 1.960 uIu/ml (0.300-4.500) Chemistry Specimen Hemolysis Bedside Glucose 347 mg/dl (70-90) Laboratory results per my review. Medications Administered Medications (Trade) Dose Ordered Sig/Love Route Start Time Stop Time Status Last Admin Dose Admin Insulin Human Regular (novoLIN-R U-100 PER UNIT) 10 units NOW STAT SC 08/31/17 17:19 08/31/17 17:20 DC 08/31/17 17:28 10 UNITS Insulin Human Regular (novoLIN-R) 6 units NOW STAT SC 08/31/17 18:23 08/31/17 18:24 DC 08/31/17 18:47 6 UNITS ECG Indication: weakness Rate (beats per minute): 74 Rhythm: sinus with SA Findings: no acute ischemic change, no ectopy ED Course 151: Past medical records reviewed. The patient was evaluated in room B10. A complete history and physical examination was performed. 1719: Ordered Insulin Human Regular 10 units SC. 1737: I checked on the patient and reassessed her. 1823: Ordered Insulin Human Regular 6 units SC. 1835: Upon reevaluation, the patient appeared to have improvement of her symptoms. I discussed findings with her. She verbalized agreement of the treatment plan. She was discharged home. Medical Decision Differential diagnosis: Etiologies such as metabolic, infection, hypo/hyperglycemia, electrolyte abnormalities, cardiac sources, intracerebral event, toxicologic, neurologic, as well as others were entertained. This patient was evaluated and appeared to be in no significant distress. IV access was obtained and laboratory work was drawn. The patient was placed on the cardiac cath lab manager and found to be in a normal sinus rhythm. Laboratory work reveals a hyperglycemia. The patient has not evaluated her blood glucose level today. It seems that she may be a poorly controlled diabetic. It is difficult to say if this episode represents a TIA or hyper/hyperglycemia. The patient was given 10 units of subcutaneous regular insulin and observed for the better part of an hour. Her blood glucose dropped by 20 points. The patient was anxious for discharge and did not want to wait any longer. We did discuss the option of admission for which she adamantly refused. The patient was given 6 units of regular insulin subcutaneously and advised to check her blood sugar this evening. She will eat a high-protein snack prior to going to bed and will follow-up with her physician tomorrow morning at 10 AM as scheduled. She will return to the ER for worsening of symptoms or any medical concerns. Medication Reconcilliation Current Medication List: was personally reviewed by me Blood Pressure Screening Patient's blood pressure: Elevated blood pressure Blood pressure disposition: Elevated BP felt to be situational Impression Primary Impression: Altered mental status Additional Impression: Hyperglycemia Scribe Attestation The scribe's documentation has been prepared under my direction and personally reviewed by me in its entirety. I confirm that the note above accurately reflects all work, treatment, procedures, and medical decision making performed by me. Departure Information Dispostion Home / Self-Care Referrals Chris Reis PA-C (PCP) Forms HOME CARE DOCUMENTATION FORM, IMPORTANT VISIT INFORMATION, WORK / SCHOOL INSTRUCTIONS Patient Instructions My [facility] Additional Instructions Diagnosis: Hyperglycemia, altered mental status Please check your blood sugar prior to going to bed this evening. Have a high-protein snack prior to bedtime. Follow-up with your primary care provider tomorrow as scheduled. Return to the ER immediately for worsening of symptoms or any medical concerns. Problem Qualifiers
--- NOTE | 2017-08-31 15:42 | DIAGNOSTIC IMAGING REPORT ---
CHEST ONE VIEW PORTABLE CLINICAL HISTORY: 77 years-old Female presenting with CVA Sx. TECHNIQUE: Portable upright AP view of the chest was obtained. COMPARISON: 12/11/2013. FINDINGS: Atherosclerosis of the aortic arch. Cardiac silhouette normal in size. Lungs and pleural spaces clear. Degenerative changes of the thoracic spine. Upper abdomen normal. IMPRESSION: 1. No acute cardiopulmonary disease. Electronically signed by: Roland Koenig M.D. 08/31/2017 3:41 PM Dictated Date/Time: 08/31/2017 3:40 PM
[2017-08-31] MEDS ORDERED: WARF3TAB6 PO (15:46)
[2017-08-31] MEDS ORDERED: WARF2TAB8 PO (15:46)
[2017-08-31] MEDS ORDERED: NIFE1TAB53 PO (15:48)
[2017-08-31] MEDS ORDERED: LSN20 PO (15:48)
[2017-08-31] MEDS ORDERED: PROM12.57 PO (15:49)
[2017-08-31 16:18] LABS: BASO % 0.2 %; BASO ABS # 0.01 K/uL (0-0.2); COMPLETE YES; EOS % 2.3 %; HEMATOCRIT 31.7 % (37-47); IG% 0.2 %; LYMPH % 3.4 %; LYMPH ABS # 0.19 K/uL (1.2-3.4); MEAN CELL VOLUME 93.8 fL (80-100); MEAN CORPUSCULAR HEMOGLOBIN 32.5 pg (25-34); MEAN CORPUSCULAR HGB CONC 34.7 g/dl (32-36); MEAN PLATELET VOLUME 10.3 fL (7.4-10.4); MONO % 14.2 %; NEUT % 79.7 %; PLATELET COUNT 285 K/uL (130-400); RED BLOOD COUNT 3.38 M/uL (4.2-5.4); WHITE BLOOD COUNT 5.63 K/uL (4.8-10.8)
[2017-08-31 16:35] LABS: URINE APPEARANCE CLEAR (CLEAR); URINE BILIRUBIN NEG (NEG); URINE COLOR YELLOW; URINE EPITHELIAL CELL AUTO >30 /lpf (0-5); URINE NITRITE NEG (NEG); URINE SPECIFIC GRAVITY 1.034 (1.000-1.030); UROBILINOGEN NEG (NEG); ZZUR CULT IF INDIC CLEAN CATCH YES
--- NOTE | 2017-08-31 16:38 | DIAGNOSTIC IMAGING REPORT ---
CT SCAN OF THE BRAIN WITHOUT IV CONTRAST CLINICAL HISTORY: Strokelike symptoms. COMPARISON STUDY: CT of the brain dated 12/30/2008. TECHNIQUE: Unenhanced axial CT scan of the brain is performed from the vertex to the skull base. A dose lowering technique was utilized adhering to the principles of ALARA. CT DOSE: 921.40 mGy.cm FINDINGS: Brain parenchyma: There are age-related involutional changes noting moderate subcortical and periventricular microangiopathic change. There is no hemorrhage, mass effect, or evidence of acute territorial ischemia by CT criteria. Helms-white matter is preserved. No extra-axial fluid collection is seen. Ventricles, sulci, cisterns: Prominent secondary to involutional change. Intracranial vasculature: There is atherosclerotic calcification of the cavernous carotid and vertebral arteries. Calvarium: Unremarkable. Sinuses and mastoids: The visualized paranasal sinuses are clear. There is a trace left mastoid effusion. The right mastoid air cells are well pneumatized. Orbits: The bony orbits are grossly intact. IMPRESSION: There is no hemorrhage, mass effect, or evidence of acute territorial ischemia by CT criteria. Electronically signed by: Marty Hester M.D. 08/31/2017 4:36 PM Dictated Date/Time: 08/31/2017 4:32 PM
[2017-08-31 16:41] LABS: MANUAL MICROSCOPIC REQUIRED? NO; REVIEW REQ? NO
[2017-08-31 17:07] LABS: ALKALINE PHOSPHATASE 57 U/L (45-117); ALT/SGPT 26 U/L (12-78); AST/SGOT 15 U/L (15-37); BLOOD UREA NITROGEN 24 mg/dl (7-18); BUN/CREATININE RATIO 17.3 (10-20); CALCIUM 9.2 mg/dl (8.5-10.1); CARBON DIOXIDE 24 mmol/L (21-32); CHLORIDE 100 mmol/L (98-107); CREATININE 1.37 mg/dl (0.60-1.20); GLUCOSE 364 mg/dl (70-99); MAGNESIUM 1.7 mg/dl (1.8-2.4); POTASSIUM 3.9 mmol/L (3.5-5.1); SODIUM 134 mmol/L (136-145)
[2017-08-31] MEDS ORDERED: NovoLIN-R INSULIN PER UNIT CHARGE SC STA (17:19)
[2017-08-31 17:21] LABS: BETA-HYDROXYBUTYRATE 0.87 mg/dL (0.2-2.81)
[2017-08-31] MEDS ORDERED: INSULIN HUMAN REGULAR SC STA (18:23)
[2017-08-31 19:10] VITALS: BP 135/66; PULSE 67; O2SAT 95
== END 2017-08-31 18:40 | disposition home or self-care (01) ==
LOC: C.EDB 13:56
DX: R41.82 Altered mental status, unspecified (principal); E11.65 Type 2 diabetes mellitus with hyperglycemia; G35 Multiple sclerosis; I10 Essential (primary) hypertension; Z79.01 Long term (current) use of anticoagulants; Z79.82 Long term (current) use of aspirin; Z79.84 Long term (current) use of oral hypoglycemic drugs; Z79.899 Other long term (current) drug therapy; Z86.718 Personal history of other venous thrombosis and embolism; Z86.79 Personal history of other diseases of the circulatory system; Z82.49 Family history of ischemic heart disease and other diseases of the circulatory system; Z83.3 Family history of diabetes mellitus

== ENCOUNTER → 2017-11-09 | Outpatient (CLI) | payer OTHER, BC ==
[~2017-11-09] MED LIST changes: -CMD5 PO; +LSN20 PO; +NIFE1TAB53 PO; -PIOG1TAB25 PO; -PRCSR30 PO; +PROM12.57 PO; -WARF-285 PO; +WARF2TAB8 PO; +WARF3TAB6 PO
[2017-11-09 12:12] LABS: BASO % 0.5 %; BASO ABS # 0.03 K/uL (0-0.2); EOS % 2.7 %; EOS ABS # 0.16 K/uL (0-0.5); HEMATOCRIT 33.7 % (37-47); HEMOGLOBIN 11.2 g/dL (12.0-16.0); IG# 0.01 K/uL (0.00-0.02); LYMPH % 5.7 %; LYMPH ABS # 0.34 K/uL (1.2-3.4); MEAN CELL VOLUME 96.6 fL (80-100); MEAN CORPUSCULAR HEMOGLOBIN 32.1 pg (25-34); MEAN CORPUSCULAR HGB CONC 33.2 g/dl (32-36); MEAN PLATELET VOLUME 10.9 fL (7.4-10.4); MONO % 14.3 %; MONO ABS # 0.85 K/uL (0.11-0.59); NEUT % 76.6 %; NEUT ABS # 4.55 K/uL (1.4-6.5); PLATELET COUNT 272 K/uL (130-400); RED CELL DISTRIBUTION WIDTH CV 13.7 % (11.5-14.5); RED CELL DISTRIBUTION WIDTH SD 48.4 fL (36.4-46.3); WHITE BLOOD COUNT 5.94 K/uL (4.8-10.8)
[2017-11-09 12:26] LABS: ALBUMIN 3.2 gm/dl (3.4-5.0); ALT/SGPT 26 U/L (12-78); BLOOD UREA NITROGEN 19 mg/dl (7-18); CALCIUM 9.3 mg/dl (8.5-10.1); CARBON DIOXIDE 27 mmol/L (21-32); CREATININE 1.16 mg/dl (0.60-1.20); GLUCOSE 252 mg/dl (70-99); POTASSIUM 4.1 mmol/L (3.5-5.1); SODIUM 137 mmol/L (136-145)
[2017-11-09 12:39] LABS: ALKALINE PHOSPHATASE 59 U/L (45-117); AST/SGOT 14 U/L (15-37); TOTAL PROTEIN 7.2 gm/dl (6.4-8.2)
== END | disposition home or self-care (01) ==
LOC: C.LAB 10:45
PROVIDERS: ATTEND Physician Assistant
DX: G35 Multiple sclerosis (principal); E55.9 Vitamin D deficiency, unspecified; R25.1 Tremor, unspecified; E53.8 Deficiency of other specified B group vitamins; R41.3 Other amnesia

== ENCOUNTER 2017-11-18 11:05 | Emergency (ER) | payer OTHER, BC ==
[~2017-11-18] VITALS: Ht 152.4 cm; Wt 82.0 kg
[~2017-11-18 11:05] MED LIST changes: -BIOTCAP2 PO; -FOLI400T41 PO; -NIFE1TAB53 PO; -WARF2TAB8 PO; -WARF3TAB6 PO
[2017-11-18 11:07] VITALS: TEMP 36.4; Ht 152.4 cm; Wt 82.0 kg
[2017-11-18] MEDS ORDERED: BIOTCAP2 PO (11:28)
[2017-11-18] MEDS ORDERED: NTRGSL/4 UT (11:41)
[2017-11-18] MEDS ORDERED: HYDR-3419 PO (11:41)
[2017-11-18] MEDS ORDERED: GABA800T PO (11:41)
[2017-11-18] MEDS ORDERED: TRAMADOL HCL 50 MG TAB PO STA (11:58)
[2017-11-18] MEDS ORDERED: ACETAMINOPHEN 500 MG TAB PO STA (11:58)
[2017-11-18 12:35] LABS: BASO % 0.2 %; BASO ABS # 0.01 K/uL (0-0.2); EOS % 1.1 %; EOS ABS # 0.06 K/uL (0-0.5); HEMATOCRIT 36.1 % (37-47); HEMOGLOBIN 11.8 g/dL (12.0-16.0); IG# 0.01 K/uL (0.00-0.02); LYMPH ABS # 0.34 K/uL (1.2-3.4); MEAN CELL VOLUME 94.5 fL (80-100); MEAN CORPUSCULAR HEMOGLOBIN 30.9 pg (25-34); MEAN CORPUSCULAR HGB CONC 32.7 g/dl (32-36); MEAN PLATELET VOLUME 10.6 fL (7.4-10.4); MONO % 11.9 %; MONO ABS # 0.67 K/uL (0.11-0.59); NEUT % 80.6 %; NEUT ABS # 4.56 K/uL (1.4-6.5); PLATELET COUNT 287 K/uL (130-400); RED CELL DISTRIBUTION WIDTH CV 13.6 % (11.5-14.5); RED CELL DISTRIBUTION WIDTH SD 47.1 fL (36.4-46.3); WHITE BLOOD COUNT 5.65 K/uL (4.8-10.8)
[2017-11-18 12:41] LABS: INR 2.1 (0.9-1.1); PTT PATIENT 31.7 SECONDS (21.0-31.0)
[2017-11-18 12:45] LABS: CALCIUM 9.7 mg/dl (8.5-10.1); CREATININE 1.24 mg/dl (0.60-1.20)
--- NOTE | 2017-11-18 12:53 | EMERGENCY ROOM VISIT NOTE ---
History Report prepared by Altaf: Juan Aguilar Under the Supervision of: Dr. Bhavesh Rod M.D. First contact with patient: 11:31 Chief Complaint: REFERRED BY DOCTOR Stated Complaint: HEAD INJURY History of Present Illness The patient is a 77 year old white female with a past medical history of visual impairment, DVT on Coumadin, DM, HTN, MS, s/p coronary stent who presents to the ED with a cc of constant head pain s/p fall occurring last night (about 7.5 hours ago). Patient reports slipping out of bed and hitting her head. She rates her pain as a 9/10 in severity. Pain has been worsening since it began. She describes her pain as "sharp". Patient is on Coumadin for DVT. She was seen by her PCP this morning for the fall, and had an outpatient CT ordered, but it was ordered incorrectly and will now not be covered by insurance. Patient notes that she has fallen three times this week. She denies passing out prior to the fall. She reports falling when getting up to go to the bathroom. Positive neck pain. Negative chest pain. Patient notes that she has a walker at home, but only uses it occasionally. Source of History: patient Onset: about 7.5 hours ago Position: head Symptom Intensity: 9/10 Quality: sharp Timing: constant, worsening Associated Symptoms: + neck pain, No chest pain Review of Systems See HPI for pertinent positives and negatives. A total of ten systems were reviewed and were otherwise negative. Past Medical & Surgical Medical Problems: (1) Blindness of both eyes (2) Chronic lumbosacral pain (3) Diabetes (4) DVT (deep venous thrombosis) (5) Heart disease (6) HTN (hypertension) (7) MS (multiple sclerosis) (8) Multiple sclerosis exacerbation Surgical Problems: (1) Hx of cholecystectomy (2) Stented coronary artery Family History Diabetes mellitus FHx: heart disease Hypertension Social History Smoking Status: Never Smoker Alcohol Use: none Drug Use: none Marital Status: Housing Status: lives with significant other Occupation Status: retired Current/Historical Medications Scheduled Aspirin (Aspirin Ec), 81 MG PO DAILY Biotin (Biotin 5000), 5 MG PO QAM Cholecalciferol (D3-50), 50,000 UNITS PO WK Cyanocobalamin (Vitamin B12), 1,000 MG PO DAILY Fentanyl (Fentanyl), 25 MCG TD [id number] Fingolimod Hcl (Gilenya), 0.5 MG PO DAILY Folic Acid (Folvite), 400 MCG PO DAILY Gabapentin (Neurontin), 800 MG PO TID Glipizide (Glipizide), 10 MG PO BID Levothyroxine Sodium (Levothyroxine Sodium), Unknown Dose PO DAILY Metformin HCl (Metformin HCl), 500 MG PO DAILY Nifedipine (Nifedipine Er), 30 MG PO TID Nitroglycerin (Nitrostat), 0.4 MG UT PRN Pantoprazole (Pantoprazole Sodium), 40 MG PO DAILY Ranitidine HCl (Ranitidine HCl), 150 MG PO BID Ropinirole HCl (Ropinirole HCl), 1 TAB PO BID Sennosides-Docusate Sodium (Senokot S), 1 TAB PO QAM Simvastatin (Zocor), 20 MG PO HS Warfarin Sod (Jantoven), 2 MG PO 2XWK Warfarin Sod (Jantoven), 3 MG PO 5XWK Scheduled PRN Hydrocodon/Acetaminophen 5MG/300MG (Vicodin (5MG/300MG)), 1 TAB PO QID PRN for Pain Allergies Coded Allergies: Allopurinol (Unverified Allergy, Unknown, COUGH, 11/18/17) [place] Blue FCF (Verified Allergy, Unknown, UNKNOWN, 11/18/17) Dimethyl Fumarate (Verified Allergy, Unknown, UNKNOWN, 11/18/17) Physical Exam Vital Signs Date Time Temp Pulse Resp B/P (MAP) Pulse Ox O2 Delivery O2 Flow Rate FiO2 11/18/17 13:01 55 16 178/74 96 Room Air 11/18/17 11:07 36.4 83 18 159/73 96 Room Air Physical Exam GENERAL: Awake, alert, well-appearing, NAD HENT: Normocephalic. Small contusion/abrasion to the right parietal area, hemostatic. No evidence of depressed skull fracture. EYES: Normal conjunctiva. Sclera non-icteric. NECK: Supple. No nuchal rigidity. FROM. No midline c-spine TTP. RESPIRATORY: CTAB, no rhonchi, wheezing, crackles CARDIAC: RRR, no MRG ABDOMEN: Soft, NTND, BS+ MSK: No LE edema. No reproducible leg, arm, chest, back, abdominal, or pelvic TTP. NEURO: GCS 15, CN 2-12 intact, moves all 4s on command SKIN: No rash or jaundice noted. Medical Decision & Procedures ER Provider Diagnostic Interpretation: Radiology results as stated below per my review and radiologist interpretation: CT SCAN OF THE BRAIN WITHOUT IV CONTRAST FINDINGS: Brain parenchyma: There are age-related involutional changes noting moderate subcortical and periventricular microangiopathic change. There is no hemorrhage, mass effect, or evidence of acute territorial ischemia by CT criteria. Helms-white matter is preserved. No extra-axial fluid collection is seen. Ventricles, sulci, cisterns: Prominent secondary to involutional change. Intracranial vasculature: There is atherosclerotic calcification of the cavernous carotid and vertebral arteries. Calvarium: The skeletal structures are osteopenic. No depressed calvarial fracture is seen. Soft tissues: There is a small high right parietal scalp hematoma. Sinuses and mastoids: Trace mucosal thickening is seen in the right maxillary antrum. Moderate mucosal thickening is noted in the ethmoid sinuses. There is a trace left mastoid effusion. The right mastoid air cells are well pneumatized. Orbits: The bony orbits are grossly intact. IMPRESSION: There is no hemorrhage, mass effect, or evidence of acute territorial ischemia by CT criteria. Electronically signed by: Marty Hester M.D. 11/18/2017 1:19 PM Laboratory Results 11/18/17 12:15 Red Blood Count 3.82, Mean Corpuscular Volume 94.5, Mean Corpuscular Hemoglobin 30.9, Mean Corpuscular Hemoglobin Concent 32.7, Mean Platelet Volume 10.6, Neutrophils (%) (Auto) 80.6, Lymphocytes (%) (Auto) 6.0, Monocytes (%) (Auto) 11.9, Eosinophils (%) (Auto) 1.1, Basophils (%) (Auto) 0.2, Neutrophils # (Auto ) 4.56, Lymphocytes # (Auto) 0.34, Monocytes # (Auto) 0.67, Eosinophils # (Auto ) 0.06, Basophils # (Auto) 0.01 11/18/17 12:15 Test 11/18/17 12:15 White Blood Count 5.65 K/uL (4.8-10.8) Red Blood Count 3.82 M/uL (4.2-5.4) Hemoglobin 11.8 g/dL (12.0-16.0) Hematocrit 36.1 % (37-47) Mean Corpuscular Volume 94.5 fL (80-100) Mean Corpuscular Hemoglobin 30.9 pg (25-34) Mean Corpuscular Hemoglobin Concent 32.7 g/dl (32-36) Platelet Count 287 K/uL (130-400) Mean Platelet Volume 10.6 fL (7.4-10.4) Neutrophils (%) (Auto) 80.6 % Lymphocytes (%) (Auto) 6.0 % Monocytes (%) (Auto) 11.9 % Eosinophils (%) (Auto) 1.1 % Basophils (%) (Auto) 0.2 % Neutrophils # (Auto) 4.56 K/uL (1.4-6.5) Lymphocytes # (Auto) 0.34 K/uL (1.2-3.4) Monocytes # (Auto) 0.67 K/uL (0.11-0.59) Eosinophils # (Auto) 0.06 K/uL (0-0.5) Basophils # (Auto) 0.01 K/uL (0-0.2) RDW Standard Deviation 47.1 fL (36.4-46.3) RDW Coefficient of Variation 13.6 % (11.5-14.5) Immature Granulocyte % (Auto) 0.2 % Immature Granulocyte # (Auto) 0.01 K/uL (0.00-0.02) Prothrombin Time 21.3 SECONDS (9.0-12.0) Prothromb Time International Ratio 2.1 (0.9-1.1) Activated Partial Thromboplast Time 31.7 SECONDS (21.0-31.0) Partial Thromboplastin Ratio 1.2 Anion Gap 8.0 mmol/L (3-11) Est Creatinine Clear Calc Drug Dose 36.6 ml/min Estimated GFR () 48.9 Estimated GFR (Non- 42.2 BUN/Creatinine Ratio 24.4 (10-20) Calcium Level 9.7 mg/dl (8.5-10.1) Laboratory results reviewed by me Medications Administered Medications (Trade) Dose Ordered Sig/Love Route Start Time Stop Time Status Last Admin Dose Admin Acetaminophen (Tylenol Tab) 500 mg NOW STAT PO 11/18/17 11:58 11/18/17 12:02 DC 11/18/17 12:23 500 MG Tramadol HCl (Ultram Tab) 25 mg NOW STAT PO 11/18/17 11:58 11/18/17 12:02 DC 11/18/17 12:23 25 MG ED Course 1144: The patient was evaluated in room B5. A complete history and physical exam was performed. 1335: I reevaluated the patient. Discussed results and discharge instructions: she verbalized understanding and agreement. The patient is ready for discharge. Medical Decision The patient is a 77 year old white female with a past medical history of visual impairment, DVT on Coumadin, DM, HTN, MS, s/p coronary stent who presents to the ED with a cc of constant head pain s/p fall occurring last night (about 7.5 hours ago). Differential diagnosis: Etiologies such as fracture, dislocation, intra-abdominal, pneumothorax, intrathoracic , intracranial, neurologic, as well as other traumatic pathologies were entertained. Prior records were reviewed. Patient was seen and evaluated the bedside. Patient did have a fall earlier this morning around 4 AM. Patient states that she did get up had a fall fell forward from standing onto a hard surface. Patient denies any LOC, tongue biting, bowel or bladder incontinence. Patient has no prior history of seizures. Patient does have a baseline tremor. Patient states that she uses a walker but only occasionally. I did discuss the bedside that it would be important that the patient uses a walker at all times to help avoid mechanical falls. Again patient denies any syncope. Patient does take Coumadin was seen as an outpatient in clinic. There was a CT scan ordered however was unable to be obtained and would require prior authorizations the patient was referred here for further evaluation and treatment. On exam the patient does have a mild abrasion to the right parietal area. Patient has a nonfocal neurologic exam. Patient did have blood work completed including coag studies. Patient does have chronic but stable anemia. Patient does have mild elevations in her BUN and creatinine compared to prior however this is likely just mild dehydration. Patient's INR is therapeutic at 2.1. Patient did have a CT of the brain. Patient was also given medications for symptom control. Patient CT the brain negative acute. Patient's headache only mildly improved. She was given some Fioricet as well. Patient was told that if she has any persistent headache troubled word finding, dysarthria, numbness, or weakness she should return. Patient was deemed suitable for outpatient follow-up and treatment this time. Patient was told that her INR was therapeutic. Patient was given strict follow- up, discharge, and return precautions. All questions were answered. Patient was deemed suitable for outpatient follow-up at this time. Patient agreed with the plan of care and was safely discharged home. Medication Reconcilliation Current Medication List: was personally reviewed by me Blood Pressure Screening Patient's blood pressure: Elevated blood pressure Blood pressure disposition: Referred to PCP Impression Primary Impression: Fall Additional Impressions: Headache Contusion Anemia Scribe Attestation The scribe's documentation has been prepared under my direction and personally reviewed by me in its entirety. I confirm that the note above accurately reflects all work, treatment, procedures, and medical decision making performed by me. Departure Information Dispostion Home / Self-Care Referrals Chris Reis PA-C (PCP) Patient Instructions Bruises Contusions, ED Mechanical Fall, My [facility], [facility] Additional Instructions Please return to the emergency department if you have worsening or recurrent symptoms not amenable to at-home treatment. Please call for a follow-up appointment with her primary care physician. Please take your medications as prescribed. If you have other concerns and/or complaints please feel free to also call your primary care physician's office or return the ED for further evaluation, management, and treatment. You may take tylenol 500 mg every 6 hours as needed for pain. Consider returning if you have worsening or persistent headache, numbness, weakness, word finding difficulty or slurred speech. Your INR was therapeutic at 2.1 today. Consider applying ice and/or compression bandage to contusion on your head to help w/ swelling and pain. Take your medications as prescribed. You have been examined and treated today on an emergency basis only. This is not a substitute for, or an effort to provide, complete comprehensive medical care. It is impossible to recognize and treat all injuries or illnesses in a single emergency department visit. It is therefore important that you follow up closely with [facility], your PCP, and/or your specialist(s). Call as soon as possible for an appointment. Thank you for your time and consideration. I look forward to speaking with you again soon. Please don't hesitate to call us if you have any questions. Problem Qualifiers Primary Impression: Fall Encounter type: initial encounter Qualified Codes: W19.XXXA - Unspecified fall, initial encounter Additional Impressions: Headache Headache type: unspecified Headache chronicity pattern: acute headache Intractability: not intractable Qualified Codes: R51 - Headache Contusion Encounter type: initial encounter Contusion area: head Contusion of head detail: scalp Qualified Codes: S00.03XA - Contusion of scalp, initial encounter Anemia Anemia type: unspecified type Qualified Codes: D64.9 - Anemia, unspecified
[2017-11-18 13:01] VITALS: O2SAT 96
--- NOTE | 2017-11-18 13:20 | DIAGNOSTIC IMAGING REPORT ---
CT SCAN OF THE BRAIN WITHOUT IV CONTRAST CLINICAL HISTORY: Fall. COMPARISON STUDY: CT of the brain dated 08/31/2017. TECHNIQUE: Unenhanced axial CT scan of the brain is performed from the vertex to the skull base. A dose lowering technique was utilized adhering to the principles of ALARA. CT DOSE: 638.56 mGycm FINDINGS: Brain parenchyma: There are age-related involutional changes noting moderate subcortical and periventricular microangiopathic change. There is no hemorrhage, mass effect, or evidence of acute territorial ischemia by CT criteria. Helms-white matter is preserved. No extra-axial fluid collection is seen. Ventricles, sulci, cisterns: Prominent secondary to involutional change. Intracranial vasculature: There is atherosclerotic calcification of the cavernous carotid and vertebral arteries. Calvarium: The skeletal structures are osteopenic. No depressed calvarial fracture is seen. Soft tissues: There is a small high right parietal scalp hematoma. Sinuses and mastoids: Trace mucosal thickening is seen in the right maxillary antrum. Moderate mucosal thickening is noted in the ethmoid sinuses. There is a trace left mastoid effusion. The right mastoid air cells are well pneumatized. Orbits: The bony orbits are grossly intact. IMPRESSION: There is no hemorrhage, mass effect, or evidence of acute territorial ischemia by CT criteria. Electronically signed by: Marty Hester M.D. 11/18/2017 1:19 PM Dictated Date/Time: 11/18/2017 1:17 PM
[2017-11-18] MEDS ORDERED: BUTALBITAL/ACETAMIN/CAFFEINE TAB PO STA (13:32)
[2017-11-18 14:16] VITALS: BP 168/70; PULSE 79
[2017-11-18] MEDS ORDERED: WARF2TAB8 PO (15:46)
[2017-11-18] MEDS ORDERED: WARF3TAB6 PO (15:46)
[2017-11-18] MEDS ORDERED: NIFE30TA86 PO (15:48)
[2017-11-18] MEDS ORDERED: FOLI400T41 PO (17:09)
== END 2017-11-18 14:19 | disposition home or self-care (01) ==
LOC: C.EDB 11:07
DX: S00.03XA Contusion of scalp, initial encounter (principal); W06.XXXA Fall from bed, initial encounter; D64.9 Anemia, unspecified; Z86.718 Personal history of other venous thrombosis and embolism; Z79.01 Long term (current) use of anticoagulants; E11.9 Type 2 diabetes mellitus without complications; I10 Essential (primary) hypertension; G35 Multiple sclerosis; H54.8 Legal blindness, as defined in USA; Z90.49 Acquired absence of other specified parts of digestive tract; Z95.5 Presence of coronary angioplasty implant and graft; Z83.3 Family history of diabetes mellitus; Z82.49 Family history of ischemic heart disease and other diseases of the circulatory system; Z79.82 Long term (current) use of aspirin; Z79.84 Long term (current) use of oral hypoglycemic drugs; Z79.899 Other long term (current) drug therapy; Z88.8 Allergy status to other drugs, medicaments and biological substances; R25.1 Tremor, unspecified

== ENCOUNTER → 2018-04-05 | Day surgery (SDC) | payer OTHER, BC ==
[2018-03-16 14:59] VITALS: Ht 152.4 cm; Wt 85.9 kg
[~2018-04-05] VITALS: Ht 152.4 cm; Wt 85.9 kg
[~2018-04-05] MED LIST changes: +500ML BSS 0.3ML EPI 1:1000PF IRRIG ONE; +ACETAMINOPHEN 325 MG TAB PO PRN; +ACT15 PO; +AMVISC PLUS 0.8ML SYRINGE INT OCU ONE; +ATROPINE SULFATE 0.1 MG/ML 5ML SYR IV PRN; +BIOTCAP2 PO; +BSS FLUSH ONE; -CHOLCAP2 PO; +CYCLOPENTOLATE HCL 1% OP SOLN PER DROP CHARGE OPL ONE; +ENDOCOAT 0.85ML SYRINGE INT OCU ONE; +EpHEDrine SULFATE INJ 50 MG/ML AMP IV PRN; +EpINEphrine INJ 1MG/ML AMP 1 MG/ML AMP ONE; +FOLI400T41 PO; -GABA-113 PO; +GABA800T PO; -GLIP10TA10 PO; +HYDR-3419 PO; -HYDR-5688 PO; +HydrALAZINE HCL 20 MG/ML VIAL ONE; +LACTATED RINGER'S 1000ML 500 ML IV SCH; +LIDOCAINE 4% OP SOLN DROP CHARGE ONE; +LIDOCAINE 4% OP SOLN DROP CHARGE OPL SCH; +LIDOCAINE HCL 1% MPF 2 ML VIAL ONE; -LSN20 PO; +MIDAZOLAM HCL 1 MG/ML 2ML VIAL ONE; +MIX: 4ML BSS 1ML EPI 1:1000 PF TOP ONE; +MOXIFLOXACIN OPH SOLN PER DROP CHARGE ONE; -NITR0.4D6; +NTRGSL/4 UT; +NURSING VERBAL MED ORDER ONE; -PANT40TA2 PO; +PHENYLEPHRINE HCL 2.5% OP SOLN PER DROP CHARGE OPL ONE; +POVIDONE-IODINE OP SOLN 30 ML BTL ONE; -PROM12.57 PO; +PROP80TA2 PO; +PROPARACAINE 0.5% OP SOLN PER DROP CHARGE OPL SCH; +TOBRAMYCIN/DEXAMETHASONE OPH OINT PER APPLN CHARGE ONE; +TROPICAMIDE 1% OP SOLN PER DROP CHARGE OPL ONE; -VALE530C3 PO; +VITA10004 PO; +WARF3TAB6 PO
[2018-04-05] MEDS: PHENYLEPHRINE HCL 2.5% OP SOLN PER DROP CHARGE OPL SCH ×3 (08:36→08:46)
[2018-04-05] MEDS: TROPICAMIDE 1% OP SOLN PER DROP CHARGE OPL SCH ×3 (08:37→08:47)
[2018-04-05] MEDS: CYCLOPENTOLATE HCL 1% OP SOLN PER DROP CHARGE OPL SCH ×3 (08:38→08:48)
[2018-04-05] MEDS: MOXIFLOXACIN OPH SOLN PER DROP CHARGE OPL SCH ×3 (08:39→08:54)
--- NOTE | 2018-04-05 08:40 | History & Physical Bridge - SC ---
H&P Re-Evaluation Bridge Note: I have examined the patient, reviewed the History & Physical and in the interval since the performance of the History & Physical I have noted the following changes of clinical significance: No changes noted
--- NOTE | 2018-04-05 09:50 | [facility] Post Operative Brief Note ---
Immediate Operative Summary Operative Date Apr 05, 2018. Pre-Operative Diagnosis Left Eye Cataract Post-Operative Diagnosis Same Procedure(s) Performed Left Cataract Phacoemulsification With Intraocular Lens Implant Surgeon Dr. Deborah Figueroa Cooking Instructor Surgeon(s) None Estimated Blood Loss 0 Findings Consistent with Post-Op Diagnosis Specimens None Anesthesia Type MAC Complication(s) none Disposition Accompanied Pt To Recover: no Disposition:
--- NOTE | 2018-04-05 09:51 | [facility] Operative Report ---
Operative Report Date of Service Apr 05, 2018. Operative Report DATE OF OPERATION: 04/05/18 PREOPERATIVE DIAGNOSIS: Senile nuclear cataract, left eye POSTOPERATIVE DIAGNOSIS: Senile nuclear cataract, left eye PROCEDURE PERFORMED: Phacoemulsification with intraocular lens implantation, left eye SURGEON: Dr. David Figueroa ANESTHESIA: Topical with 1% intracameral lidocaine and monitored anesthesia care COMPLICATIONS: None DESCRIPTION OF PROCEDURE: After positively identifying the patient both verbally and by wristband in the preoperative area, the left eye was marked as the operative eye. The patient was then brought back to the operating room by the anesthesia and nursing staff where they were given a drop of Lidocaine and betadine into the operative eye. They were then sterilely prepped and draped in the standard fashion typical for ophthalmic surgery. Steri-strips were placed along the upper eyelids to keep the lashes back, and a lid speculum was placed into the operative eye. At this point, a documented time out was performed with members of the ophthalmology, nursing, and anesthesia staffs all agreeing upon the correct patient, correct location for surgery, correct procedure, and correct type and power of intraocular lens to be implanted. The microscope was then swung into position. First, a paracentesis wound was made using a sideport blade. Then, in sequence, 1% preservative-free lidocaine followed by Endocoat viscoelastic was injected into the anterior chamber. Next , the main incision was made with a keratome blade in triplanar fashion. A sharp cystotome was introduced into the eye and used to create a tear in the anterior capsule, which was directed into a continuous curvilinear capsulorrhexis using Utrata forceps. Hydrodissection was then performed with BSS on a flat-tip cannula. Next, the phacoemulsification handpiece was introduced into the eye and used to remove the nucleus in a [id number] fashion. This was done without complication and then the irrigation-aspiration handpiece was introduced into the eye and used to remove all remaining cortical and epinuclear material. Amvisc was then injected into the anterior chamber as well as into the capsular bag and using the lens injector system, an MX60 23.5 D lens, serial number [id number], and expiration date 10/2020 was injected into the capsular bag and rotated into the correct position. Next, the irrigation- aspiration handpiece was used to remove all remaining Amvisc. BSS was used to hydrate the main wound, and then BSS was injected into the paracentesis site to reach physiologic pressure and then the main wound was checked and found to be watertight. The patient was given drops of Vigamox and Tobradex ointment into the operative eye, and then the surrounding area was cleaned and dried. A clear plastic shield was placed over the eye and the patient was then sat up and taken from the operating room by the anesthesia staff having tolerated the procedure well and suffering no complications. DISPOSITION: The patient was returned to the recovery room in stable condition. I attest to the content of the Intraoperative Record and any orders documented therein. Any exceptions are noted below.
--- NOTE | 2018-04-05 09:52 | Discharge Instructions-SurgCtr ---
Discharge Instructions Date of Service Apr 05, 2018. Visit Reason for Visit: Cataract Left Eye Discharge Discharge Diagnosis / Problem: left cataract Discharge Goals Goal(s): Decrease discomfort, Improve function Medications Stopped Medications Name(s): metformin last dose tuesday Activity Recommendations Activity Limitations: as noted below Anesthesia . Post Anesthesia Instructions: If you have had General Anesthesia or IV Sedation: * Do not drive today. * Resume driving when surgeon permits. * Do not make important decisions or sign legal documents today. * Call surgeon for: 1. Temperature elevations greater than 101 degrees F. 2. Uncontrollable pain. 3. Excessive bleeding. 4. Persistent nausea and vomiting. 5. Medication intolerance (nausea, vomiting or rash). * For nausea and vomiting use only clear liquids such as: tea, soda, bouillon until nausea subsides, then gradually increase diet as tolerated. * If you have any concerns or questions, call your surgeon's office. If physician is unavailable and it is an emergency, call 911 or go to the nearest emergency room. . Instructions / Follow-Up Instructions / Follow-Up ACTIVITY RECOMMENDATIONS: * Light activities. * You may walk outside, read, watch television. * You may notice redness on the white part of the eye and some blurry vision - this is normal. MEDICATIONS: Resume previous medications unless instructed otherwise by your surgeon. Start all eye drops at 12 pm today: * Eye drops (today): Prednisone - one drop in operative eye every 2 hours while awake Ofloxacin - one drop in operative eye every 2 hours while awake Ketorolac - one drop in operative eye 4 times daily SPECIAL CARE INSTRUCTIONS: * Tape plastic shield over eye to sleep at night. Call your doctor at with any concerns or problems. FOLLOW UP VISIT: Follow-up with Dr Figueroa at [place] office as scheduled. Diet Recommendations Home Diet: no limitations Procedures Procedures Performed: Left Cataract Phacoemulsification With Intraocular Lens Implant Pending Studies Studies pending at discharge: no Medical Emergencies . Who to Call and When: Medical Emergencies: If at any time you feel your situation is an emergency, please call 911 immediately. . Non-Emergent Contact Non-Emergency issues call your: Surgeon . . "Provider Documentation" section prepared by David Figueroa. .
[2018-04-05 09:55] VITALS: TEMP 36.6
--- NOTE | 2018-04-05 10:10 | Anesthesia Progress Nt - [facility] ---
Anesthesia Post Op Note Date & Time Apr 05, 2018 at 10:10 Vital Signs Pain Intensity: 0 Vital Signs Past 12 Hours Date Time Temp Pulse Resp B/P (MAP) Pulse Ox O2 Delivery O2 Flow Rate FiO2 04/05/18 09:55 36.6 60 20 175/72 (106) 97 Room Air 04/05/18 08:29 36.4 60 24 185/81 (115) 90 Room Air Notes Mental Status: alert / awake / arousable, participated in evaluation Pt Amnestic to Procedure: Yes Nausea / Vomiting: adequately controlled Pain: adequately controlled Airway Patency, RR, SpO2: stable & adequate BP & HR: stable & adequate Hydration State: stable & adequate Anesthetic Complications: no major complications apparent
[2018-04-05 10:25] VITALS: BP 150/59; PULSE 78; O2SAT 95
== END | disposition home or self-care (01) ==
LOC: X.SURG 07:48
PROVIDERS: ATTEND Ophthalmology
DX: E11.36 Type 2 diabetes mellitus with diabetic cataract (principal); H25.12 Age-related nuclear cataract, left eye; G35 Multiple sclerosis; I25.2 Old myocardial infarction; I48.91 Unspecified atrial fibrillation; Z86.718 Personal history of other venous thrombosis and embolism; I10 Essential (primary) hypertension; G20 Parkinson's disease; Z86.73 Personal history of transient ischemic attack (TIA), and cerebral infarction without residual deficits; E66.9 Obesity, unspecified; Z68.37 Body mass index [BMI] 37.0-37.9, adult

== ENCOUNTER → 2018-04-19 | Day surgery (SDC) | payer OTHER, BC ==
[2018-04-18 08:21] VITALS: Ht 152.4 cm; Wt 86.4 kg
[~2018-04-19] VITALS: Ht 152.4 cm; Wt 86.4 kg
[~2018-04-19] MED LIST changes: -CYCLOPENTOLATE HCL 1% OP SOLN PER DROP CHARGE OPL ONE; -LIDOCAINE 4% OP SOLN DROP CHARGE OPL SCH; +LIDOCAINE 4% OP SOLN DROP CHARGE OPR SCH; -NURSING VERBAL MED ORDER ONE; -PHENYLEPHRINE HCL 2.5% OP SOLN PER DROP CHARGE OPL ONE; -PROPARACAINE 0.5% OP SOLN PER DROP CHARGE OPL SCH; +PROPARACAINE 0.5% OP SOLN PER DROP CHARGE OPR SCH; -TROPICAMIDE 1% OP SOLN PER DROP CHARGE OPL ONE
[2018-04-19] MEDS: PHENYLEPHRINE HCL 2.5% OP SOLN PER DROP CHARGE OPR SCH ×3 (08:17→08:30)
[2018-04-19] MEDS: TROPICAMIDE 1% OP SOLN PER DROP CHARGE OPR SCH ×3 (08:18→08:31)
[2018-04-19] MEDS: CYCLOPENTOLATE HCL 1% OP SOLN PER DROP CHARGE OPR SCH ×3 (08:19→08:32)
[2018-04-19] MEDS: MOXIFLOXACIN OPH SOLN PER DROP CHARGE OPR SCH ×3 (08:20→08:35)
--- NOTE | 2018-04-19 09:06 | [facility] Post Operative Brief Note ---
Immediate Operative Summary Operative Date Apr 19, 2018. Pre-Operative Diagnosis Right eye cataract Post-Operative Diagnosis same as preop Procedure(s) Performed Right Cataract Phacoemulsification With Intraocular Lens Implant Surgeon Carolina Plaster Machine Tender Surgeon(s) none Estimated Blood Loss 0ml Findings Consistent with Post-Op Diagnosis Specimens none per surgeon Anesthesia Type MAC Complication(s) none Disposition Accompanied Pt To Recover: no Disposition:
--- NOTE | 2018-04-19 09:07 | [facility] Operative Report ---
Operative Report Date of Service Apr 19, 2018. Operative Report Phaco with monofocal IOL DATE OF OPERATION: 04/19/18 PREOPERATIVE DIAGNOSIS: Senile nuclear cataract, right eye POSTOPERATIVE DIAGNOSIS: Senile nuclear cataract, right eye PROCEDURE PERFORMED: Phacoemulsification with intraocular lens implantation, right eye SURGEON: Dr. David Figueroa ANESTHESIA: Topical with 1% intracameral lidocaine and monitored anesthesia care COMPLICATIONS: None DESCRIPTION OF PROCEDURE: After positively identifying the patient both verbally and by wristband in the preoperative area, the right eye was marked as the operative eye. The patient was then brought back to the operating room by the anesthesia and nursing staff where they were given a drop of Lidocaine and betadine into the operative eye. They were then sterilely prepped and draped in the standard fashion typical for ophthalmic surgery. Steri-strips were placed along the upper eyelids to keep the lashes back, and a lid speculum was placed into the operative eye. At this point, a documented time out was performed with members of the ophthalmology, nursing, and anesthesia staffs all agreeing upon the correct patient, correct location for surgery, correct procedure, and correct type and power of intraocular lens to be implanted. The microscope was then swung into position. First, a paracentesis wound was made using a sideport blade. Then, in sequence, 1% preservative-free lidocaine followed by Endocoat viscoelastic was injected into the anterior chamber. Next , the main incision was made with a keratome blade in triplanar fashion. A sharp cystotome was introduced into the eye and used to create a tear in the anterior capsule, which was directed into a continuous curvilinear capsulorrhexis using Utrata forceps. Hydrodissection was then performed with BSS on a flat-tip cannula. Next, the phacoemulsification handpiece was introduced into the eye and used to remove the nucleus in a [id number] fashion. This was done without complication and then the irrigation-aspiration handpiece was introduced into the eye and used to remove all remaining cortical and epinuclear material. Amvisc was then injected into the anterior chamber as well as into the capsular bag and using the lens injector system, an MX60 23.5 D lens, serial number [id number], and expiration date 11/2020 was injected into the capsular bag and rotated into the correct position. Next, the irrigation- aspiration handpiece was used to remove all remaining Amvisc. BSS was used to hydrate the main wound, and then BSS was injected into the paracentesis site to reach physiologic pressure and then the main wound was checked and found to be watertight. The patient was given drops of Vigamox and Tobradex ointment into the operative eye, and then the surrounding area was cleaned and dried. A clear plastic shield was placed over the eye and the patient was then sat up and taken from the operating room by the anesthesia staff having tolerated the procedure well and suffering no complications. DISPOSITION: The patient was returned to the recovery room in stable condition. I attest to the content of the Intraoperative Record and any orders documented therein. Any exceptions are noted below.
[2018-04-19 09:08] VITALS: TEMP 36.2
--- NOTE | 2018-04-19 09:08 | Discharge Instructions-SurgCtr ---
Discharge Instructions Date of Service Apr 19, 2018. Visit Reason for Visit: Cataract Right Eye Discharge Discharge Diagnosis / Problem: right cataract Discharge Goals Goal(s): Decrease discomfort, Improve function Activity Recommendations Activity Limitations: as noted below Anesthesia . Post Anesthesia Instructions: If you have had General Anesthesia or IV Sedation: * Do not drive today. * Resume driving when surgeon permits. * Do not make important decisions or sign legal documents today. * Call surgeon for: 1. Temperature elevations greater than 101 degrees F. 2. Uncontrollable pain. 3. Excessive bleeding. 4. Persistent nausea and vomiting. 5. Medication intolerance (nausea, vomiting or rash). * For nausea and vomiting use only clear liquids such as: tea, soda, bouillon until nausea subsides, then gradually increase diet as tolerated. * If you have any concerns or questions, call your surgeon's office. If physician is unavailable and it is an emergency, call 911 or go to the nearest emergency room. . Instructions / Follow-Up Instructions / Follow-Up ACTIVITY RECOMMENDATIONS: * Light activities. * You may walk outside, read, watch television. * You may notice redness on the white part of the eye and some blurry vision - this is normal. MEDICATIONS: Resume previous medications unless instructed otherwise by your surgeon. Start all eye drops at 11 am today: * Eye drops (today): Prednisone - one drop in operative eye every 2 hours while awake Ofloxacin - one drop in operative eye every 2 hours while awake Ketorolac - one drop in operative eye 4 times daily SPECIAL CARE INSTRUCTIONS: * Tape plastic shield over eye to sleep at night. Call your doctor at with any concerns or problems. FOLLOW UP VISIT: Follow-up with Dr Figueroa at [facility] as scheduled. Diet Recommendations Home Diet: no limitations Procedures Procedures Performed: Right Cataract Phacoemulsification With Intraocular Lens Implant Pending Studies Studies pending at discharge: no Medical Emergencies . Who to Call and When: Medical Emergencies: If at any time you feel your situation is an emergency, please call 911 immediately. . Non-Emergent Contact Non-Emergency issues call your: Surgeon . . "Provider Documentation" section prepared by David Figueroa. .
--- NOTE | 2018-04-19 09:40 | Anesthesia Progress Nt - [facility] ---
Anesthesia Post Op Note Date & Time Apr 19, 2018 at 09:40 Vital Signs Pain Intensity: 0 Vital Signs Past 12 Hours Date Time Temp Pulse Resp B/P (MAP) Pulse Ox O2 Delivery O2 Flow Rate FiO2 04/19/18 09:08 36.2 54 24 151/74 (99) 95 Room Air 04/19/18 07:56 36.4 54 20 200/83 (122) 97 Room Air Notes Mental Status: alert / awake / arousable, participated in evaluation Pt Amnestic to Procedure: Yes Nausea / Vomiting: adequately controlled Pain: adequately controlled Airway Patency, RR, SpO2: stable & adequate BP & HR: stable & adequate Hydration State: stable & adequate Anesthetic Complications: no major complications apparent
[2018-04-19 09:42] VITALS: BP 179/75; PULSE 56; O2SAT 95
== END | disposition home or self-care (01) ==
LOC: X.SURG 07:36
PROVIDERS: ATTEND Ophthalmology
DX: H25.11 Age-related nuclear cataract, right eye (principal); G35 Multiple sclerosis; I10 Essential (primary) hypertension; I25.2 Old myocardial infarction; G20 Parkinson's disease; E11.9 Type 2 diabetes mellitus without complications; Z79.899 Other long term (current) drug therapy; Z79.84 Long term (current) use of oral hypoglycemic drugs; Z86.718 Personal history of other venous thrombosis and embolism; Z86.73 Personal history of transient ischemic attack (TIA), and cerebral infarction without residual deficits; Z98.42 Cataract extraction status, left eye; I48.91 Unspecified atrial fibrillation; M19.90 Unspecified osteoarthritis, unspecified site

== ENCOUNTER 2019-09-19 18:21 | Inpatient (IN) ==
--- NOTE | 2019-09-19 19:20 | XRay Report ---
XR chest 1V portable CLINICAL HISTORY: Shortness of breath COMPARISON STUDY: 08/31/2017 FINDINGS: The heart is borderline enlarged. There is a prominent left cardiac phrenic angle fat pad. There is subtle increased density within the right hemithorax. This could be artifactual, or related to asymmetric edema or a right lung inflammatory process. A follow-up PA and lateral study is recomme nded.[ IMPRESSION: Subtle increased right lung markings. It is unclear whether this is artifactual, related to asymmetric edema, or a right lung inflammatory process. A follow-up PA and lateral study is recomm ended. ACT 112: Negative or not required by law. Electronically signed by: Adam Khoury M.D. 09/19/2019 7:19 PM
[2019-09-19] MEDS ORDERED: ALBUT/IPRATROP 3MG/0.5MG NEB 3 ML VIAL NEB ONE (19:25)
[2019-09-19 19:39] LABS: Basophils # (auto) 0.01 K/uL (0-0.2); Basophils % (auto) 0.1 %; Hematocrit (blood only) 31.2 % (37-47); Hemoglobin 10.3 g/dL (12.0-16.0); Immature Granulocytes # (auto) 0.01 K/uL (0.00-0.02); Immature Granulocytes % (auto) 0.1 %; Lymphocytes # (auto) 0.64 K/uL (1.2-3.4); Lymphocytes % (auto) 6.9 %; Mean Corpuscular Hemoglobin 33.3 pg (25-34); Mean Platelet Volume 10.8 fL (7.4-10.4); Monocytes # (auto) 0.33 K/uL (0.11-0.59); Monocytes % (auto) 3.5 %; Neutrophils # (auto) 8.33 K/uL (1.4-6.5); Neutrophils % (auto) 89.4 %; Platelet Count 291 K/uL (130-400); RDW Coefficient of Variation 13.3 % (11.5-14.5); RDW Standard Deviation 48.8 fL (36.4-46.3); Red Blood Count 3.09 M/uL (4.2-5.4); White Blood Count 9.32 K/uL (4.8-10.8)
[2019-09-19 19:45] LABS: Oxygen Saturation VBG 71.4 %; pH VBG 7.38 (7.36-7.41)
[2019-09-19 19:54] LABS: INR 1.9 (0.9-1.1); Partial Thromboplastin Ratio 1.2; Partial Thromboplastin Time 32.3 Seconds (21.0-31.0); Prothrombin Time 18.5 Seconds (9.0-12.0)
[2019-09-19 20:09] LABS: Albumin Globulin Ratio 0.8 (0.9-2); Albumin Level 3.3 gm/dl (3.4-5.0); BUN Creatinine Ratio 10.8 (10-20); Bilirubin,Total 0.3 mg/dl (0.2-1); Creatinine Clr Calc Pharmacy 31.7 ml/min; Est GFR (African American) 36.2; Est GFR (Non-African American) 31.3; Total Protein 7.3 gm/dl (6.4-8.2); Troponin I 0.097 ng/ml (0-0.045)
[2019-09-19 20:11] LABS: Influenza A virus by PCR Neg for Influ A (Neg); Influenza B virus by PCR Neg for Influ B (Neg)
[2019-09-19] MEDS ORDERED: ASPIRIN CHEW 324 MG PO STA (20:12)
[2019-09-19 20:21] LABS: Beta-Hydroxybutyrate 3.46 mg/dl (0.2-2.81)
[2019-09-19 20:30] LABS: Magnesium 1.4 mg/dl (1.8-2.4); Thyroid Stimulating Hormone 0.604 uIu/ml (0.300-4.500)
[2019-09-19] MEDS ORDERED: FUROSEMIDE 40 MG/4 ML VIAL IV STA (20:43)
[2019-09-19] MEDS ORDERED: ASPIRIN 81 MG CHEW ONE (20:49)
[2019-09-19] MEDS ORDERED: MAGNESIUM SULFATE / D5W 1 GM/100 ML BAG IV STA (20:56)
[2019-09-19] MEDS ORDERED: INSULIN HUMAN REGULAR PER UNIT 10 UNITS in SYRINGE 9.9 ML IV STA (21:04)
[2019-09-19] MEDS ORDERED: INSULIN GLARGINE SOLOSTAR 100 UNITS/ML 3 ML PEN SC STA (21:07)
--- NOTE | 2019-09-19 21:36 | History & Physical Report ---
Date of Service September 19, 2019 Assessment & Plan (1) Acute on chronic respiratory failure with hypoxia: Please refer to Dr. Julian's addendum for assessment and plan. History of Present Illness Chief Complaint: Shortness of breath Primary Care Provider: Chris Hernandezfrancisco jvito 79-year-old female who presents the ED for evaluation of shortness of breath. Patient reports her symptoms began 3 days ago. She was seen by her PCP yesterday who placed her on prednisone. Shortness of breath progressively worse today. She also reports a persistent chest pain that developed today. Describes the pain as midsternally with radiation up into the neck and is a burning sensation. Patient reports taking 4 nitroglycerin at home without any relief of the discomfort. She reportedly received 3 nitroglycerin for EMS and currently reports she is chest pain-free. Patient reports orthopnea, worsening lower extremity edema, and abdominal distention. She does not weigh herself on a daily basis. She reports a dry, nonproductive cough that developed today. Chronically wears 2.5 L of oxygen at home. Patient had a fall last week. Reports that when she stood up, her legs simply would not go forward and she stumbled backwards falling onto her oxygen tank. She denies any loss of consciousness. No lightheadedness, dizziness, diaphoresis. She denies abdominal pain, nausea, vomiting, diarrhea. No fevers or chills. She denies any urinary symptoms. In the ED, patient was found to be hypoxic at 85%, this improved with oxygen 4 L via nasal cannula. Labs show elevated troponin 0.09, glucose 446, lactate 4.6, BNP 4776. CXR suggesting asymmetric pulmonary edema. Patient was given nebulizer treatment, full dose aspirin, Lasix 40 mg IV. Allergies Allergy/AdvReac Type Severity Reaction Status Date / Time allopurinol Allergy Unknown COUGH Verified 09/19/19 21:24 blue dye Allergy Unknown BRILLIANT Verified 09/19/19 23:05 BLUE FCF dimethyl fumarate Allergy Unknown UNKNOWN Verified 09/19/19 21:24 Home Medications Home Medications Medication Instructions Recorded Confirmed Type Oxygen Home #1 ea 05/25/19 09/03/19 History ascorbic acid (vitamin C) 1,000 mg 1,000 mg PO Q12H 05/25/19 09/19/19 History tablet,extended release aspirin 81 mg tablet,delayed 81 mg PO DAILY tab 05/25/19 09/19/19 History release biotin 5 mg tablet 5 tab PO DAILY tab 05/25/19 09/19/19 History cyanocobalamin (vitamin B-12) 2,000 mcg PO DAILY tab 05/25/19 09/19/19 History 1,000 mcg tablet fentanyl 25 mcg/hr transdermal 1 patch TD .COMPLEX ea 05/25/19 09/19/19 History patch lidocaine 5 % topical patch See Rx Instructions TRANSDERMAL 05/25/19 09/19/19 History .COMPLEX ea pioglitazone 15 mg tablet 15 mg PO DAILY tab 05/25/19 09/19/19 History warfarin 1 mg tablet 4.5 mg PO DAILY tab 05/25/19 09/19/19 History buspirone 10 mg tablet 10 mg PO BID 09/03/19 09/19/19 History carbamazepine 200 mg tablet 200 mg PO DAILY tab 09/03/19 09/19/19 History dulaglutide 1.5 mg/0.5 mL 1.5 mg SQ WEEKLY ml 09/03/19 09/19/19 History subcutaneous pen injector furosemide 40 mg tablet 40 mg PO DAILY PRN 09/03/19 09/19/19 History gabapentin 800 mg tablet 800 mg PO TID #270 tab 09/03/19 09/19/19 Rx glipizide 10 mg tablet 10 mg PO BID 09/03/19 09/19/19 History isosorbide mononitrate 60 mg 60 mg PO DAILY 09/03/19 09/19/19 History tablet,extended release 24 hr levothyroxine 100 mcg tablet 100 mcg PO DAILY 09/03/19 09/19/19 History lorazepam 0.5 mg tablet 0.5 mg PO DAILY PRN 09/03/19 09/19/19 History metformin 500 mg tablet 500 mg PO QAM 09/03/19 09/19/19 History nitroglycerin 0.4 mg sublingual 0.4 mg SL Q5M PRN 09/03/19 09/19/19 History tablet potassium chloride 10 mEq 10 meq PO DAILY 09/03/19 09/19/19 History tablet,extended release acetaminophen [Tylenol] 650 mg PO Q6 PRN 09/19/19 09/19/19 History albuterol sulfate 2.5 mg INHALATION Q4 PRN 09/19/19 09/19/19 History ergocalciferol (vitamin D2) 1,250 mcg PO WK 09/19/19 09/19/19 History [Vitamin D2] folic acid 0.4 mg PO DAILY 09/19/19 09/19/19 History hydrochlorothiazide 12.5 mg PO DAILY 09/19/19 09/19/19 History promethazine 12.5 - 25 mg PO UD PRN 09/19/19 09/19/19 History propranolol 80 mg PO .STOPPED PER PT 09/19/19 09/19/19 History ranitidine HCl 150 mg PO BID 09/19/19 09/19/19 History senna 8.6 mg PO BID 09/19/19 09/19/19 History vitamin E 1,000 unit PO DAILY 09/19/19 09/19/19 History Past Med/Surg History Medical History CAD (coronary artery disease) July 2009 -NSTEMI 2009-2 KYLER to circumflex obtuse marginal, 1 KYLER to RCA Carotid artery stenosis Chronic diastolic CHF (congestive heart failure) Chronic respiratory failure with hypoxia CKD (chronic kidney disease), stage III DM type 2 (diabetes mellitus, type 2) Dyslipidemia History of DVT (deep vein thrombosis) Hypertension Hypothyroidism Interstitial lung disease Legally blind Multiple sclerosis Seizure disorder Surgical History History of hysterectomy History of tonsillectomy Hx of cholecystectomy Family History Mother Heart disease Social History Preferred Language: [place] Beliefs That Will Affect Care: None Current Living Situation: Spouse and Family Feels Safe at Home: Yes Safety Concerns: Feels Safe At This Time Smoking Status: Never smoker Hx Alcohol Use: No Hx Substance Use: No Review of Systems Review of Systems: ROS per HPI, all other systems reviewed and negative Physical Exam Constitutional: WD/WN, vitals as above + obese Eyes: Blind ENMT: external ear and nose normal, oropharynx normal Respiratory: normal respiratory effort and able to speak in complete sentences; no respiratory distress Auscultation: + crackles (Bilateral, mid to lower lung tamayo) Cardiovascular: Rate/Rhythm: regular rate and regular rhythm Vessels: normal peripheral pulses Extremities: + pedal edema (Trace, bilateral) Gastrointestinal (Abdomen): normal bowel sounds, soft, nontender, no hepatosplenomegaly Musculoskeletal: no cyanosis or clubbing, extremities motor strength 5/5 Skin: no rashes, warm and dry Neurologic: PERRL, EOMI, accommodation nl, no face palsy, no dysarthria Psychiatric: A+Ox3, euthymic affect Results & Data Vital Signs (Past 12 Hours) Vital Signs Temp Pulse Pulse Resp BP Pulse Ox 09/19/19 20:50 110 H 17 97 09/19/19 20:40 108 H 18 100 09/19/19 20:31 107 H 30 H 125/69 96 09/19/19 20:30 107 H 27 H 97 09/19/19 20:20 104 H 20 97 09/19/19 20:10 100 H 19 96 09/19/19 20:00 100 H 29 H 95 09/19/19 19:50 99 H 22 97 09/19/19 19:40 99 H 29 H 97 09/19/19 19:39 100 H 100 H 27 H 95 09/19/19 19:31 102 H 35 H 143/53 H 95 09/19/19 19:30 102 H 26 H 85 L 09/19/19 19:20 106 H 28 H 95 09/19/19 19:11 105 H 27 H 96 09/19/19 18:58 94 09/19/19 18:56 93 09/19/19 18:36 36.9 C 115 H 35 H 173/86 H 94 09/19/19 18:32 105 H 15 173/86 H 94 Laboratory Results Short CBC 09/19/19 Range/Units 19:26 WBC 9.32 (4.8-10.8) K/uL Hgb 10.3 L (12.0-16.0) g/dL Hct 31.2 L (37-47) % Plt Count 291 (130-400) K/uL BMP 09/19/19 19:26 Sodium 133 L Potassium 4.0 Chloride 97 L Carbon Dioxide 26 BUN 17 Creatinine 1.57 H Glucose 446 H* Calcium 9.0 Cardiac Enzymes 09/19/19 Range/Units 19:26 Troponin I 0.097 H* (0-0.045) ng/ml Liver Function 09/19/19 Range/Units 19:26 Total Bilirubin 0.3 (0.2-1) mg/dl AST 16 (15-37) U/L ALT 22 (12-78) U/L Alkaline Phosphatase 56 (45-117) U/L Albumin 3.3 L (3.4-5.0) gm/dl Diagnostic Findings CXR IMPRESSION: Subtle increased right lung markings. It is unclear whether this is artifactual, related to asymmetric edema, or a right lung inflammatory process. A follow-up PA and lateral study is recommended. Supervising Physician Co-Signing Physician Notes IM ATTENDING : Patient seen and examined. History obtained from patient, family, and records. Preceding documentation by CARLOS Us reviewed. FINAL ASSESSMENT AND PLAN as follows : Acute on chronic hypoxemic respiratory failure (hx chronic O2 for possible ILD as per records) Secondary to decompensated HF hx chronic diastolic heart failure (EF 50%, TTE 2018) Dietary indiscretion ([employer] chips consumption), viral bronchitis,? uncontrolled BP, ARF on CRI contributory to CHF Chest pain, troponin elevation secondary to CHF, uncontrolled BP History CAD status post stent possible ACS given patient account of chest pain being similar to heart attack in the past DM2, insulin requiring Suboptimal control as of recent hemoglobin A1c of 9 from 2017 Patient markedly hyperglycemic after recent outpatient steroid course for viral bronchitis. Chronic anemia secondary to CKD, hemoglobin at baseline Recurrent DVT on Coumadin, INR slightly subtherapeutic History MS/tremors, stable as per outpatient [facility] Neurology visit 2 weeks ago. Chronic pain on Fentanyl patch ? Functional disability PCU Supplemental O2 Diuretic Rx Strict I/Os, daily weights, CHF education Daily renal function while on diuretic Rx Titrate BP meds, initiate Norvasc if still uncontrolled TTE, Cardiology consult RE decompensated CHF, chest pain Follow troponin, n.p.o. after midnight, hold Coumadin until patient seen by Cardiology in a.m. Supportive measures for viral bronchitis Stop outpatient prednisone course Basal insulin adjusted for n.p.o. status after midnight, ISS BG goal [id number], carb count coverage, update hemoglobin A1c PT OT eval DVT prophylaxis. IV heparin while INR subtherapeutic while Coumadin on hold Full code Patient's great granddaughter requesting updates for providers. Ms. Diazissa Deric, contact #[phone].
[2019-09-19] MEDS: ALBUMIN 25% 50 ML IV STA ×2 (22:02→23:52)
--- NOTE | 2019-09-19 22:52 | Emergency Department Note ---
Entered by Jagjit Miranda acting as a scribe for Dash Grubbs M.D. History of Present Illness General Chief complaint: Shortness of Breath/Dyspnea Stated complaint: RESP DIFF. Time Seen by Provider: 09/19/19 19:10 Source: patient, family () and RN notes reviewed History of Present Illness Onset (ago): hour(s) (throughout today) Location: chest Pain Consistency: + other (worsening) Maximum Pain Intensity: 5 Quality: + other (shortness of breath) Associated symptoms: + chest pain and + other (-abdominal pain; -sinus congestion; +woresning tremors ); no nausea/vomiting Treatments prior to arrival: other (duobeb, albuterol, and 3 nitro ) The patient is a 79 year old female, with past medical history of MS, CAD, GERD, and diabetes, who presents to the Emergency Room with complaints of worsening shortness of breath throughout today. The RN of the patient states that the patient received a duoneb treatment, albuterol treatment, and 3 nitro en route via EMS. The RN also reports that the patient is on 2.5 L of oxygen at all times at home, but she states that the patient is currently on 4 liters. The patient states she will experience shortness of breath and chest pain with walking. The patient denies recent fall, abdominal pain, nausea, or sinus congestion. The patient notes she experiences tremors, but she states that her tremors have been worse recently. The of the patient states the patient was put on prednisone two days ago via the patients PCP, Dr. Reis. The or the patient cannot recall why the patient was put on the prednisone. The patient denies being a smoker. The patient states she has been on oxygen for the last 3 years. Home Medications Home Medications Medication Instructions Recorded Confirmed Type Oxygen Home #1 ea 05/25/19 09/03/19 History ascorbic acid (vitamin C) 1,000 mg 1,000 mg PO Q12H 05/25/19 09/19/19 History tablet,extended release aspirin 81 mg tablet,delayed 81 mg PO DAILY tab 05/25/19 09/19/19 History release biotin 5 mg tablet 5 tab PO DAILY tab 05/25/19 09/19/19 History cyanocobalamin (vitamin B-12) 2,000 mcg PO DAILY tab 05/25/19 09/19/19 History 1,000 mcg tablet fentanyl 25 mcg/hr transdermal 1 patch TD .COMPLEX ea 05/25/19 09/19/19 History patch lidocaine 5 % topical patch See Rx Instructions TRANSDERMAL 05/25/19 09/19/19 History .COMPLEX ea pioglitazone 15 mg tablet 15 mg PO DAILY tab 05/25/19 09/19/19 History warfarin 1 mg tablet 4.5 mg PO DAILY tab 05/25/19 09/19/19 History buspirone 10 mg tablet 10 mg PO BID 09/03/19 09/19/19 History carbamazepine 200 mg tablet 200 mg PO DAILY tab 09/03/19 09/19/19 History dulaglutide 1.5 mg/0.5 mL 1.5 mg SQ WEEKLY ml 09/03/19 09/19/19 History subcutaneous pen injector furosemide 40 mg tablet 40 mg PO DAILY PRN 09/03/19 09/19/19 History gabapentin 800 mg tablet 800 mg PO TID #270 tab 09/03/19 09/19/19 Rx glipizide 10 mg tablet 10 mg PO BID 09/03/19 09/19/19 History isosorbide mononitrate 60 mg 60 mg PO DAILY 09/03/19 09/19/19 History tablet,extended release 24 hr levothyroxine 100 mcg tablet 100 mcg PO DAILY 09/03/19 09/19/19 History lorazepam 0.5 mg tablet 0.5 mg PO DAILY PRN 09/03/19 09/19/19 History metformin 500 mg tablet 500 mg PO QAM 09/03/19 09/19/19 History nitroglycerin 0.4 mg sublingual 0.4 mg SL Q5M PRN 09/03/19 09/19/19 History tablet potassium chloride 10 mEq 10 meq PO DAILY 09/03/19 09/19/19 History tablet,extended release acetaminophen [Tylenol] 650 mg PO Q6 PRN 09/19/19 09/19/19 History albuterol sulfate 2.5 mg INHALATION Q4 PRN 09/19/19 09/19/19 History ergocalciferol (vitamin D2) 1,250 mcg PO WK 09/19/19 09/19/19 History [Vitamin D2] folic acid 0.4 mg PO DAILY 09/19/19 09/19/19 History hydrochlorothiazide 12.5 mg PO DAILY 09/19/19 09/19/19 History promethazine 12.5 - 25 mg PO UD PRN 09/19/19 09/19/19 History propranolol 80 mg PO .STOPPED PER PT 09/19/19 09/19/19 History ranitidine HCl 150 mg PO BID 09/19/19 09/19/19 History senna 8.6 mg PO BID 09/19/19 09/19/19 History vitamin E 1,000 unit PO DAILY 09/19/19 09/19/19 History Allergies Allergy/AdvReac Type Severity Reaction Status Date / Time allopurinol Allergy Unknown COUGH Verified 09/19/19 21:24 dimethyl fumarate Allergy Unknown UNKNOWN Verified 09/19/19 21:24 [place] [facility] Allergy Unknown UNKNOWN Uncoded 09/19/19 21:24 Past Med/Surg History Medical History CAD (coronary artery disease) July 2009 -NSTEMI 2009-2 KYLER to circumflex obtuse marginal, 1 KYLER to RCA Carotid artery stenosis Chronic diastolic CHF (congestive heart failure) Chronic respiratory failure with hypoxia CKD (chronic kidney disease), stage III DM type 2 (diabetes mellitus, type 2) Dyslipidemia History of DVT (deep vein thrombosis) Hypertension Hypothyroidism Interstitial lung disease Legally blind Multiple sclerosis Seizure disorder Surgical History History of hysterectomy History of tonsillectomy Hx of cholecystectomy Family History Mother Heart disease Social History Feels Safe at Home: Yes Smoking Status: Never smoker Hx Alcohol Use: No Review of Systems See HPI for pertinent positives & negatives. and A total of 10 systems reviewed and were otherwise negative Physical Exam Vital Signs Vital Signs - 24 hr 09/19/19 18:32 09/19/19 18:36 09/19/19 18:56 Temperature 36.9 C Temperature Source Oral Pulse Rate 105 H 115 H Pulse Rate [Left Finger] Pulse Rate from SpO2 Sensor 105 H Respiratory Rate 15 35 H Respiratory Effort / Characteristics Spontaneous Labored Short of Breath Respiratory Depth Shallow Respiratory Pattern Rapid/Shallow Tachypnea Blood Pressure 173/86 H 173/86 H Blood Pressure Mean 125 115 Blood Pressure Position Sitting Pulse Oximetry 94 94 93 Oxygen Delivery Method Nasal Cannula Nasal Cannula Oxygen Flow Rate 3 3 Fraction of Inspired Oxygen Sepsis Recent Fever Within 48 Hours No Sepsis Action Taken by Nursing No Action Required 09/19/19 18:58 09/19/19 19:11 09/19/19 19:20 Temperature Temperature Source Pulse Rate 105 H 106 H Pulse Rate [Left Finger] Pulse Rate from SpO2 Sensor 105 H 111 H Respiratory Rate 27 H 28 H Respiratory Effort / Characteristics Respiratory Depth Respiratory Pattern Blood Pressure Blood Pressure Mean Blood Pressure Position Pulse Oximetry 94 96 95 Oxygen Delivery Method Nasal Cannula Oxygen Flow Rate 3 Fraction of Inspired Oxygen Sepsis Recent Fever Within 48 Hours Sepsis Action Taken by Nursing 09/19/19 19:30 09/19/19 19:31 09/19/19 19:39 Temperature Temperature Source Pulse Rate 102 H 102 H 100 H Pulse Rate [Left Finger] 100 H Pulse Rate from SpO2 Sensor 101 H 102 H Respiratory Rate 26 H 35 H 27 H Respiratory Effort / Characteristics Spontaneous Labored Respiratory Depth Respiratory Pattern Blood Pressure 143/53 H Blood Pressure Mean 90 Blood Pressure Position Pulse Oximetry 85 L 95 95 Oxygen Delivery Method BiPAP Oxygen Flow Rate Fraction of Inspired Oxygen 30 Sepsis Recent Fever Within 48 Hours Sepsis Action Taken by Nursing 09/19/19 19:40 09/19/19 19:50 09/19/19 20:00 Temperature Temperature Source Pulse Rate 99 H 99 H 100 H Pulse Rate [Left Finger] Pulse Rate from SpO2 Sensor 100 H 99 H 100 H Respiratory Rate 29 H 22 29 H Respiratory Effort / Characteristics Respiratory Depth Respiratory Pattern Blood Pressure Blood Pressure Mean Blood Pressure Position Pulse Oximetry 97 97 95 Oxygen Delivery Method BiPAP Nasal Cannula Oxygen Flow Rate 3 Fraction of Inspired Oxygen Sepsis Recent Fever Within 48 Hours Sepsis Action Taken by Nursing 09/19/19 20:10 09/19/19 20:20 09/19/19 20:30 Temperature Temperature Source Pulse Rate 100 H 104 H 107 H Pulse Rate [Left Finger] Pulse Rate from SpO2 Sensor 100 H 104 H 115 H Respiratory Rate 19 20 27 H Respiratory Effort / Characteristics Respiratory Depth Respiratory Pattern Blood Pressure Blood Pressure Mean Blood Pressure Position Pulse Oximetry 96 97 97 Oxygen Delivery Method Oxygen Flow Rate Fraction of Inspired Oxygen Sepsis Recent Fever Within 48 Hours Sepsis Action Taken by Nursing 09/19/19 20:31 09/19/19 20:40 09/19/19 20:50 Temperature Temperature Source Pulse Rate 107 H 108 H 110 H Pulse Rate [Left Finger] Pulse Rate from SpO2 Sensor 139 H 107 H 110 H Respiratory Rate 30 H 18 17 Respiratory Effort / Characteristics Respiratory Depth Respiratory Pattern Blood Pressure 125/69 Blood Pressure Mean 89 Blood Pressure Position Pulse Oximetry 96 100 97 Oxygen Delivery Method Oxygen Flow Rate Fraction of Inspired Oxygen Sepsis Recent Fever Within 48 Hours Sepsis Action Taken by Nursing 09/19/19 21:00 09/19/19 21:01 09/19/19 21:10 Temperature Temperature Source Pulse Rate 114 H 112 H 112 H Pulse Rate [Left Finger] Pulse Rate from SpO2 Sensor 116 H 112 H 118 H Respiratory Rate 23 26 H 26 H Respiratory Effort / Characteristics Respiratory Depth Respiratory Pattern Blood Pressure Blood Pressure Mean Blood Pressure Position Pulse Oximetry 98 99 93 Oxygen Delivery Method Oxygen Flow Rate Fraction of Inspired Oxygen Sepsis Recent Fever Within 48 Hours Sepsis Action Taken by Nursing 09/19/19 21:20 09/19/19 21:30 09/19/19 21:31 Temperature Temperature Source Pulse Rate 109 H 108 H 109 H Pulse Rate [Left Finger] Pulse Rate from SpO2 Sensor 109 H 108 H 111 H Respiratory Rate 23 23 29 H Respiratory Effort / Characteristics Respiratory Depth Respiratory Pattern Blood Pressure 104/86 Blood Pressure Mean 91 Blood Pressure Position Pulse Oximetry 99 99 100 Oxygen Delivery Method Oxygen Flow Rate Fraction of Inspired Oxygen Sepsis Recent Fever Within 48 Hours Sepsis Action Taken by Nursing 09/19/19 21:40 09/19/19 21:50 09/19/19 22:00 Temperature Temperature Source Pulse Rate 110 H 113 H 107 H Pulse Rate [Left Finger] Pulse Rate from SpO2 Sensor 110 H 113 H 107 H Respiratory Rate 27 H 19 22 Respiratory Effort / Characteristics Respiratory Depth Respiratory Pattern Blood Pressure Blood Pressure Mean Blood Pressure Position Pulse Oximetry 100 100 98 Oxygen Delivery Method Oxygen Flow Rate Fraction of Inspired Oxygen Sepsis Recent Fever Within 48 Hours Sepsis Action Taken by Nursing 09/19/19 22:02 09/19/19 22:10 09/19/19 22:27 Temperature Temperature Source Pulse Rate 108 H 107 H Pulse Rate [Left Finger] Pulse Rate from SpO2 Sensor 123 H 106 H Respiratory Rate 25 H 26 H Respiratory Effort / Characteristics Respiratory Depth Respiratory Pattern Blood Pressure 129/77 Blood Pressure Mean 79 Blood Pressure Position Pulse Oximetry 92 93 Oxygen Delivery Method Nasal Cannula Oxygen Flow Rate 3 Fraction of Inspired Oxygen Sepsis Recent Fever Within 48 Hours Sepsis Action Taken by Nursing GENERAL: Awake, alert, uncomfortable-appearing, in respiratory distress HENT: Normocephalic, atraumatic. EYES: Normal conjunctiva. Sclera non-icteric. NECK: Supple. No nuchal rigidity. RESPIRATORY: Increased work of breathing. Scattered wheezes. Tachypneic. CARDIAC: Tachycardic rate. Normal rhythm. Extremities warm and well perfused. GI: Soft, non-distended. No tenderness to palpation. RECTAL: Deferred. MUSCULOSKELETAL: Atraumatic. Chest examination reveals no tenderness. LOWER EXTREMITIES: Calves are equal size bilaterally and non-tender. Minimal pedal edema NEURO: No motor deficits noted but with tremor. No facial droop. SKIN: Warm and dry. No rash or jaundice noted. Course Course 1909: Past medical records reviewed. The patient was evaluated in room C4. A complete history and physical exam was performed. 1934: I reevaluated and updated the patient. The patient was put on BIPAP, and she reports of mild improvement. 2046: I reviewed the patient's case with Dr. [facility]. Dr. Julian will evaluate the patient for further management. Consultations Consultation #1: I reviewed the patient's case [facility] Hilar[facility] chaidez. Dr. Julian will evaluate the patient for further management. Time: 20:47 Administered Medications Discontinued Medications Albuterol (Duoneb) 12 ml NEB ONE ONE Stop: 09/19/19 19:26 Last Admin: 09/19/19 19:35 Dose: 12 ml Documented by: [id number] Aspirin (Aspirin) 324 mg PO NOW STA Stop: 09/19/19 20:13 Last Admin: 09/19/19 20:30 Dose: 324 mg Documented by: [id number] Aspirin (Aspirin Chew) Confirm Administered Dose 81 mg .ROUTE .STK-MED ONE Stop: 09/19/19 20:50 Last Admin: 09/19/19 21:55 Dose: Not Given Documented by: [id number] Furosemide (Lasix) 40 mg IV NOW STA Stop: 09/19/19 20:44 Last Admin: 09/19/19 20:45 Dose: 40 mg Documented by: [id number] Magnesium Sulfate/Dextrose (Magnesium Sulfate / D5w) 1 gm in 100 mls @ 100 mls/hr IV Q1H STA Stop: 09/19/19 21:55 Last Admin: 09/19/19 21:56 Dose: 100 mls/hr Documented by: [id number] Insulin Human Regular 10 units (/ Syringe) 10 mls @ 60 mls/min IV ONE STA Stop: 09/19/19 21:05 Last Admin: 09/19/19 21:56 Dose: 60 mls/min Documented by: [id number] Cosigned by: [id number] Insulin Glargine (Lantus Solostar Pen) 30 units SC NOW STA Stop: 09/19/19 21:08 Last Admin: 09/19/19 21:57 Dose: 30 units Documented by: [id number] Cosigned by: [id number] Critical Care Time Critical Care Time: Yes Total Critical Care Time: 44 I have personally spent 44 minutes of critical care time in the direct management of this patient. This includes bedside care, interpretation of diagno stic studies, and testing, discussion with consultants, patient, and family members, and other required patient management activities. This 44 minutes is in excess of all separately billable procedures. Medical Decision Making Differential Diagnosis Differential diagnosis: Etiologies such as infections, reactive airway disease, pneumonia, pneumothorax, COPD, CHF, cardiac ischemia, pulmonary embolism, musculoskeletal, gas trointestinal, as well as others were entertained. Medical Records Attestation: I reviewed the patient's medical records. Home Medications Current Medication List: was personally reviewed by me Laboratory Data Attestation: I reviewed the patient's lab results. Result diagrams: 09/19/19 19:26 09/19/19 19:26 Lab Results 09/19/19 09/19/19 09/19/19 Range/Units 19:26 19:26 19:26 WBC 9.32 (4.8-10.8) K/uL RBC 3.09 L (4.2-5.4) M/uL Hgb 10.3 L (12.0-16.0) g/dL Hct 31.2 L (37-47) % MCV 101.0 H (80-100) fL MCH 33.3 (25-34) pg MCHC 33.0 (32-36) g/dL RDW Std Deviation 48.8 H (36.4-46.3) fL RDW Coeff of Gillian 13.3 (11.5-14.5) % Plt Count 291 (130-400) K/uL MPV 10.8 H (7.4-10.4) fL Immature Gran % (Auto) 0.1 % Neut % (Auto) 89.4 % Lymph % (Auto) 6.9 % [place] % (Auto) 3.5 % Eos % (Auto) 0.0 % Baso % (Auto) 0.1 % Immature Gran # (Auto) 0.01 (0.00-0.02) K/uL Neut # (Auto) 8.33 H (1.4-6.5) K/uL Lymph # (Auto) 0.64 L (1.2-3.4) K/uL [place] # (Auto) 0.33 (0.11-0.59) K/uL Eos # (Auto) 0.00 (0-0.5) K/uL Baso # (Auto) 0.01 (0-0.2) K/uL PT 18.5 H (9.0-12.0) Seconds INR 1.9 H (0.9-1.1) APTT 32.3 H (21.0-31.0) Seconds PTT Ratio 1.2 VBG pH (7.36-7.41) VBG pCO2 (38-50) mmHg VBG pO2 mmHg VBG HCO3 mmol/L VBG O2 Saturation % VBG Base Excess mEq/L Barometric Pressure mm/Hg Sodium 133 L (136-145) mmol/L Potassium 4.0 (3.5-5.1) mmol/L Chloride 97 L (98-107) mmol/L Carbon Dioxide 26 (21-32) mmol/L Anion Gap 10.0 (3-11) BUN 17 (7-18) mg/dl Creatinine 1.57 H (0.6-1.2) mg/dl Est Cr Clr Drug Dosing 31.7 ml/min Est GFR ( Amer) 36.2 Est GFR (Non-Af Amer) 31.3 BUN/Creatinine Ratio 10.8 (10-20) Glucose 446 H* (70-99) mg/dl POC Glucose (70-99) mg/dl Lactate (0.4-2.0) mmol/L Calcium 9.0 (8.5-10.1) mg/dl Magnesium (1.8-2.4) mg/dl Total Bilirubin 0.3 (0.2-1) mg/dl AST 16 (15-37) U/L ALT 22 (12-78) U/L Alkaline Phosphatase 56 (45-117) U/L Troponin I 0.097 H* (0-0.045) ng/ml NT-Pro-B Natriuret Pep (0-1800) pg/ml Total Protein 7.3 (6.4-8.2) gm/dl Albumin 3.3 L (3.4-5.0) gm/dl Globulin 4.0 (2.5-4.0) gm/dl Albumin/Globulin Ratio 0.8 L (0.9-2) Beta-Hydroxybutyric Acd 3.46 H (0.2-2.81) mg/dl Procalcitonin (0-0.5) ng/ml TSH (0.300-4.500) uIu/ml Influenza Type A (PCR) (Neg) Influenza Type B (PCR) (Neg) 09/19/19 09/19/19 09/19/19 Range/Units 19:27 19:27 19:27 WBC (4.8-10.8) K/uL RBC (4.2-5.4) M/uL Hgb (12.0-16.0) g/dL Hct (37-47) % MCV (80-100) fL MCH (25-34) pg MCHC (32-36) g/dL RDW Std Deviation (36.4-46.3) fL RDW Coeff of Gillian (11.5-14.5) % Plt Count (130-400) K/uL MPV (7.4-10.4) fL Immature Gran % (Auto) % Neut % (Auto) % Lymph % (Auto) % [place] % (Auto) % Eos % (Auto) % Baso % (Auto) % Immature Gran # (Auto) (0.00-0.02) K/uL Neut # (Auto) (1.4-6.5) K/uL Lymph # (Auto) (1.2-3.4) K/uL [place] # (Auto) (0.11-0.59) K/uL Eos # (Auto) (0-0.5) K/uL Baso # (Auto) (0-0.2) K/uL PT (9.0-12.0) Seconds INR (0.9-1.1) APTT (21.0-31.0) Seconds PTT Ratio VBG pH 7.38 (7.36-7.41) VBG pCO2 44 (38-50) mmHg VBG pO2 40 mmHg VBG HCO3 25 mmol/L VBG O2 Saturation 71.4 % VBG Base Excess 0 mEq/L Barometric Pressure 732.0 mm/Hg Sodium (136-145) mmol/L Potassium (3.5-5.1) mmol/L Chloride (98-107) mmol/L Carbon Dioxide (21-32) mmol/L Anion Gap (3-11) BUN (7-18) mg/dl Creatinine (0.6-1.2) mg/dl Est Cr Clr Drug Dosing ml/min Est GFR ( Amer) Est GFR (Non-Af Amer) BUN/Creatinine Ratio (10-20) Glucose (70-99) mg/dl POC Glucose (70-99) mg/dl Lactate 4.6 H* (0.4-2.0) mmol/L Calcium (8.5-10.1) mg/dl Magnesium 1.4 L (1.8-2.4) mg/dl Total Bilirubin (0.2-1) mg/dl AST (15-37) U/L ALT (12-78) U/L Alkaline Phosphatase (45-117) U/L Troponin I (0-0.045) ng/ml NT-Pro-B Natriuret Pep 4776 H (0-1800) pg/ml Total Protein (6.4-8.2) gm/dl Albumin (3.4-5.0) gm/dl Globulin (2.5-4.0) gm/dl Albumin/Globulin Ratio (0.9-2) Beta-Hydroxybutyric Acd (0.2-2.81) mg/dl Procalcitonin (0-0.5) ng/ml TSH 0.604 (0.300-4.500) uIu/ml Influenza Type A (PCR) (Neg) Influenza Type B (PCR) (Neg) 09/19/19 09/19/19 09/19/19 Range/Units 19:27 19:29 21:34 WBC (4.8-10.8) K/uL RBC (4.2-5.4) M/uL Hgb (12.0-16.0) g/dL Hct (37-47) % MCV (80-100) fL MCH (25-34) pg MCHC (32-36) g/dL RDW Std Deviation (36.4-46.3) fL RDW Coeff of Gillian (11.5-14.5) % Plt Count (130-400) K/uL MPV (7.4-10.4) fL Immature Gran % (Auto) % Neut % (Auto) % Lymph % (Auto) % [place] % (Auto) % Eos % (Auto) % Baso % (Auto) % Immature Gran # (Auto) (0.00-0.02) K/uL Neut # (Auto) (1.4-6.5) K/uL Lymph # (Auto) (1.2-3.4) K/uL [place] # (Auto) (0.11-0.59) K/uL Eos # (Auto) (0-0.5) K/uL Baso # (Auto) (0-0.2) K/uL PT (9.0-12.0) Seconds INR (0.9-1.1) APTT (21.0-31.0) Seconds PTT Ratio VBG pH (7.36-7.41) VBG pCO2 (38-50) mmHg VBG pO2 mmHg VBG HCO3 mmol/L VBG O2 Saturation % VBG Base Excess mEq/L Barometric Pressure mm/Hg Sodium (136-145) mmol/L Potassium (3.5-5.1) mmol/L Chloride (98-107) mmol/L Carbon Dioxide (21-32) mmol/L Anion Gap (3-11) BUN (7-18) mg/dl Creatinine (0.6-1.2) mg/dl Est Cr Clr Drug Dosing ml/min Est GFR ( Amer) Est GFR (Non-Af Amer) BUN/Creatinine Ratio (10-20) Glucose (70-99) mg/dl POC Glucose (70-99) mg/dl Lactate 5.9 H* (0.4-2.0) mmol/L Calcium (8.5-10.1) mg/dl Magnesium (1.8-2.4) mg/dl Total Bilirubin (0.2-1) mg/dl AST (15-37) U/L ALT (12-78) U/L Alkaline Phosphatase (45-117) U/L Troponin I (0-0.045) ng/ml NT-Pro-B Natriuret Pep (0-1800) pg/ml Total Protein (6.4-8.2) gm/dl Albumin (3.4-5.0) gm/dl Globulin (2.5-4.0) gm/dl Albumin/Globulin Ratio (0.9-2) Beta-Hydroxybutyric Acd (0.2-2.81) mg/dl Procalcitonin < 0.05 (0-0.5) ng/ml TSH (0.300-4.500) uIu/ml Influenza Type A (PCR) Neg for Influ A (Neg) Influenza Type B (PCR) Neg for Influ B (Neg) 09/19/19 Range/Units 21:53 WBC (4.8-10.8) K/uL RBC (4.2-5.4) M/uL Hgb (12.0-16.0) g/dL Hct (37-47) % MCV (80-100) fL MCH (25-34) pg MCHC (32-36) g/dL RDW Std Deviation (36.4-46.3) fL RDW Coeff of Gillian (11.5-14.5) % Plt Count (130-400) K/uL MPV (7.4-10.4) fL Immature Gran % (Auto) % Neut % (Auto) % Lymph % (Auto) % [place] % (Auto) % Eos % (Auto) % Baso % (Auto) % Immature Gran # (Auto) (0.00-0.02) K/uL Neut # (Auto) (1.4-6.5) K/uL Lymph # (Auto) (1.2-3.4) K/uL [place] # (Auto) (0.11-0.59) K/uL Eos # (Auto) (0-0.5) K/uL Baso # (Auto) (0-0.2) K/uL PT (9.0-12.0) Seconds INR (0.9-1.1) APTT (21.0-31.0) Seconds PTT Ratio VBG pH (7.36-7.41) VBG pCO2 (38-50) mmHg VBG pO2 mmHg VBG HCO3 mmol/L VBG O2 Saturation % VBG Base Excess mEq/L Barometric Pressure mm/Hg Sodium (136-145) mmol/L Potassium (3.5-5.1) mmol/L Chloride (98-107) mmol/L Carbon Dioxide (21-32) mmol/L Anion Gap (3-11) BUN (7-18) mg/dl Creatinine (0.6-1.2) mg/dl Est Cr Clr Drug Dosing ml/min Est GFR ( Amer) Est GFR (Non-Af Amer) BUN/Creatinine Ratio (10-20) Glucose (70-99) mg/dl POC Glucose 430 H* (70-99) mg/dl Lactate (0.4-2.0) mmol/L Calcium (8.5-10.1) mg/dl Magnesium (1.8-2.4) mg/dl Total Bilirubin (0.2-1) mg/dl AST (15-37) U/L ALT (12-78) U/L Alkaline Phosphatase (45-117) U/L Troponin I (0-0.045) ng/ml NT-Pro-B Natriuret Pep (0-1800) pg/ml Total Protein (6.4-8.2) gm/dl Albumin (3.4-5.0) gm/dl Globulin (2.5-4.0) gm/dl Albumin/Globulin Ratio (0.9-2) Beta-Hydroxybutyric Acd (0.2-2.81) mg/dl Procalcitonin (0-0.5) ng/ml TSH (0.300-4.500) uIu/ml Influenza Type A (PCR) (Neg) Influenza Type B (PCR) (Neg) Imaging Data Radiologist's Impression: Radiology results as stated below per my review and the radiologist's interpretation: XR chest 1V portable CLINICAL HISTORY: Shortness of breath COMPARISON STUDY: 08/31/2017 FINDINGS: The heart is borderline enlarged. There is a prominent left cardiac phrenic angle fat pad. There is subtle increased density within the right hemithorax. This could be artifactual, or related to asymmetric edema or a right lung inflammatory process. A follow-up PA and lateral study is recommended.[ IMPRESSION: Subtle increased right lung markings. It is unclear whether this is artifactual, related to asymmetric edema, or a right lung inflammatory process. A follow-up PA and lateral study is recommended. ACT 112: Negative or not required by law. Electronically signed by: Adam Khoury M.D. 09/19/2019 7:19 PM ECG Data Attestation: I personally reviewed and interpreted this ECG as follows: Indication: + SOB/dyspnea Rate (beats per minute): 107 Rhythm: + sinus tachycardia ECG ST segments: no ST depression and no ST elevation ECG Findings: + PACs and + Other (T wave flattening laterally ) Blood Pressure Blood Pressure Findings: Elevated blood pressure Blood Pressure Disposition: further management by hospitalist MDM Narrative 79-year-old female with a history including MS, diabetes, tremor, hypertension, CAD status post stenting, hypothyroidism, DVT on Coumadin presenting today via ambulance with complaints of 2 days of worsening shortness of breath prickly worse today. Normally on chronic oxygen at 2 L with increased work of breathing today. PCP started on prednisone 2 days ago. No significant new edema. Increased work of breathing and tachypneic and tachycardic upon evaluation in the room. Not apparently significantly hypoxic but with a work of breathing transition quickly to BiPAP. Received DuoNebs prior to arrival given an add itional here. Given her anticoagulation low suspicion for PE. Patient states she is having some exertional chest pain and worsening shortness of breath with exertion today concerning with a cardiac history and believe this is likely more related to underlying respiratory problem rather than primarily cardiac. Query demand situation. EKG and troponin were completed however with mild elevation. Chest x-ray shows evidence of slightly increased right lung markings possibly asymmetric edema versus inflammatory process. No evidence of acute hepatitis or pancreatitis. Do not believe this represents PE with anticoagulation. Patient on BiPAP had improvement of symptoms. VBG is unimpressive and patient without significant leukocytosis. Given aspirin and Lasix. Hypomagnesemia noted. Discussed with the [facility] further care in the inpatient setting. Believe she is likely suffering from some fluid overload causing some demand ischemia. Impression & Plan Respiratory failure, Non-ST elevation [place] (NSTEMI), Breath shortness, Fluid overload Discharge Plan Visit Data Chief Complaint: Shortness of Breath/Dyspnea Stated Complaint: RESP DIFF. ED Provider: Dash Grubbs Discharge Problem: Respiratory failure, Non-ST elevation [place] (NSTEMI), Breath shortness, Fluid overload Patient Disposition: Being Evaluated by Hospitalist Discharge Instructions Interventions: ED Discharge Assessment Last Done: 09/19/19 22:27 Forms Stand Alone Forms: My [facility] Prescriptions Prescriptions: No Action lidocaine 5 % adhesive patch,medicated See Rx Instructions transdermal .COMPLEX RF: 0 fentanyl 25 mcg/hr patch 72 hour 1 patch TD .COMPLEX RF: 0 biotin 5 mg tablet 5 tab PO DAILY RF: 0 warfarin 1 mg tablet 4.5 mg PO DAILY RF: 0 aspirin 81 mg tablet,delayed release (DR/EC) 81 mg PO DAILY RF: 0 cyanocobalamin (vitamin B-12) 1,000 mcg tablet 2,000 mcg PO DAILY RF: 0 pioglitazone 15 mg tablet 15 mg PO DAILY RF: 0 ascorbic acid (vitamin C) 1,000 mg tablet extended release 1,000 mg PO Q12H RF: 0 (DME) Oxygen Home Liters Per Minute See Dose Instructions .ROUTE .MEDSUPPLY Qty: 1 RF: 0 buspirone 10 mg tablet 10 mg PO BID RF: 0 carbamazepine 200 mg tablet 200 mg PO DAILY RF: 0 furosemide 40 mg tablet 40 mg PO DAILY PRN (Reason: Edema) RF: 0 glipizide 10 mg tablet 10 mg PO BID RF: 0 isosorbide mononitrate 60 mg tablet extended release 24 hr 60 mg PO DAILY RF: 0 potassium chloride [Klor-Con 10] 10 mEq tablet extended release 10 meq PO DAILY RF: 0 levothyroxine [Synthroid] 100 mcg tablet 100 mcg PO DAILY RF: 0 lorazepam 0.5 mg tablet 0.5 mg PO DAILY PRN (Reason: Anxiety) RF: 0 Trulicity 1.5 mg/0.5 mL pen injector 1.5 mg SQ WEEKLY RF: 0 metformin 500 mg tablet 500 mg PO QAM RF: 0 nitroglycerin 0.4 mg tablet, sublingual 0.4 mg SL Q5M PRN (Reason: Chest Pain) RF: 0 gabapentin 800 mg tablet 800 mg PO TID Qty: 270 RF: 3 promethazine 12.5 mg tablet 12.5 - 25 mg PO UD PRN (Reason: Nausea) RF: 0 ranitidine HCl 150 mg tablet 150 mg PO BID RF: 0 senna 8.6 mg Capsule 8.6 mg PO BID RF: 0 hydrochlorothiazide 12.5 mg tablet 12.5 mg PO DAILY RF: 0 vitamin E 1,000 unit Capsule 1,000 unit PO DAILY RF: 0 acetaminophen [Tylenol] 325 mg Tablet 650 mg PO Q6 PRN (Reason: Pain) RF: 0 albuterol sulfate 2.5 mg /3 mL (0.083 %) Solution For Nebulization 2.5 mg INHALATION Q4 PRN (Reason: Shortness Of Breath) RF: 0 folic acid 400 mcg Tablet 0.4 mg PO DAILY RF: 0 propranolol 80 mg capsule,extended release 24 hr 80 mg PO .STOPPED PER PT RF: 0 ergocalciferol (vitamin D2) [Vitamin D2] 1,250 mcg (50,000 unit) Capsule 1,250 mcg PO WK RF: 0 Referrals Referrals: Chris Reis PA-C [Primary Care Provider] - The scribe's documentation has been prepared under my direction and personally reviewed by me in its entirety. I confirm that the note above accurately reflects all work, treatment, procedures, and medical decision making performed by me.
[2019-09-19] MEDS ORDERED: LORazepam 0.25 MG/0.5 ML VIAL IV PRN (23:01)
[2019-09-19] MEDS ORDERED: NITROGLYCERIN SL 0.4 MG/TAB TAB SL PRN (23:01)
[2019-09-19] MEDS ORDERED: HYDROmorphone INJ 0.5 MG/0.5 ML SYR IV PRN (23:01)
[2019-09-19] MEDS ORDERED: PROMETHAZINE HCL 12.5 MG in SODIUM CHLORIDE 0.9% 50 ML IV PRN (23:01)
[2019-09-19] MEDS ORDERED: GLUCOSE 40% GEL 15 GM TUBE PO PRN (23:01)
[2019-09-19] MEDS ORDERED: DEXTROSE 50% 50 ML SYRINGE IV PRN (23:01)
[2019-09-19] MEDS ORDERED: Heparin IV Standard *NO* Bolus STA (23:01)
[2019-09-19] MEDS ORDERED: CARBOHYDRATES FOR HYPOGLYCEMIA PO PRN (23:01)
[2019-09-19] MEDS ORDERED: ACETAMINOPHEN 325 MG TAB PO PRN (23:01)
[2019-09-19] MEDS ORDERED: GLUCOSE 10 TABS/TUBE PO PRN (23:01)
[2019-09-19] MEDS ORDERED: OXYCODONE HCL IR 5 MG TAB (IMMEDIATE RELEASE) PO PRN (23:01)
[2019-09-19] MEDS ORDERED: GLUCAGON FOR INJ 1 MG VIAL SQ PRN (23:01)
[2019-09-19] MEDS ORDERED: MAGNESIUM SULFATE / D5W 1 GM/100 ML BAG IV ONE (23:15)
[2019-09-19] MEDS ORDERED: METOPROLOL TARTRATE 1 MG/ML VIAL IV STA (23:17)
[2019-09-19] MEDS ORDERED: fentaNYL 25 MCG/HR TDSY TD SCH (23:30)
[2019-09-19] MEDS: HEPARIN SODIUM/DEXTROSE 25,000 UNITS/500 ML BAG IV SCH (23:59)
[2019-09-20] MEDS: INSULIN ASPART 100 UNITS/ML 3 ML PEN SC SCH ×5 (00:07→20:55)
[2019-09-20] MEDS: guaiFENesin 600 MG TABCR PO SCH ×3 (00:07→20:53)
[2019-09-20 00:22] LABS: Appearance Urine Clear (Clear); Bilirubin Urine Negative (Negative); Blood Urine Negative (Negative); Color Urine Yellow; Glucose Urine UA 3+ (Negative); Ketones Urine Negative (Negative); Leukocyte Esterase Urine Negative (Negative); Nitrite Urine Negative (Negative); Protein Urine Negative (Negative); Specific Gravity Urine 1.015 (1.000-1.030); Urobilinogen Urine Negative (Negative)
[2019-09-20] MEDS: LEVALBUTEROL 1.25MG/0.5ML NEB INH SCH ×4 (00:24→19:41)
[2019-09-20] MEDS: IPRATROPIUM BROMIDE NEB SOLN 0.02% 2.5 ML VIAL INH SCH ×4 (00:24→19:41)
[2019-09-20] MEDS ORDERED: INSULIN GLARGINE SOLOSTAR 100 UNITS/ML 3 ML PEN SC STA ×2 (00:40→06:07)
[2019-09-20] MEDS ORDERED: XOPENEX/ATROVENT 1.25mg/0.5MG NEB COMBO NEB SCH (01:00)
[2019-09-20] MEDS: PROPRANOLOL HCL 60 MG LA CAP PO SCH (06:09)
[2019-09-20] MEDS: LEVOTHYROXINE SODIUM 100 MCG TABLET PO SCH (06:10)
[2019-09-20 06:20] LABS: Basophils # (auto) 0.01 K/uL (0-0.2); Basophils % (auto) 0.1 %; Eosinophils # (auto) 0.01 K/uL (0-0.5); Eosinophils % (auto) 0.1 %; Hematocrit (blood only) 28.1 % (37-47); Hemoglobin 9.3 g/dL (12.0-16.0); Immature Granulocytes # (auto) 0.02 K/uL (0.00-0.02); Immature Granulocytes % (auto) 0.2 %; Lymphocytes # (auto) 0.89 K/uL (1.2-3.4); Lymphocytes % (auto) 9.2 %; Mean Corpuscular Hemoglobin 33.2 pg (25-34); Mean Corpuscular Hgb Conc 33.1 g/dL (32-36); Mean Corpuscular Volume 100.4 fL (80-100); Mean Platelet Volume 10.1 fL (7.4-10.4); Monocytes # (auto) 1.02 K/uL (0.11-0.59); Monocytes % (auto) 10.6 %; Neutrophils % (auto) 79.8 %; Platelet Count 244 K/uL (130-400); RDW Coefficient of Variation 13.2 % (11.5-14.5); RDW Standard Deviation 48.5 fL (36.4-46.3); White Blood Count 9.65 K/uL (4.8-10.8)
[2019-09-20 06:46] LABS: BUN Creatinine Ratio 13.6 (10-20); Calcium 8.9 mg/dl (8.5-10.1); Creatinine Clr Calc Pharmacy 32.8 ml/min; Est GFR (African American) 40.6; Potassium 3.6 mmol/L (3.5-5.1)
[2019-09-20 07:01] LABS: Troponin I 0.266 ng/ml (0-0.045)
[2019-09-20 07:06] LABS: Estimated Average Glucose 203 mg/dl; Hemoglobin A1C 8.7 % (4.5-5.6)
[2019-09-20 07:07] LABS: INR 1.7 (0.9-1.1); Partial Thromboplastin Ratio 2.2; Prothrombin Time 16.8 Seconds (9.0-12.0)
[2019-09-20 07:09] LABS: Partial Thromboplastin Time 60.9 Seconds (21.0-31.0)
[2019-09-20] MEDS ORDERED: PROPRANOLOL HCL 60 MG LA CAP PO SCH (09:00)
[2019-09-20] MEDS: GABAPENTIN 800 MG TAB PO SCH ×3 (09:11→20:53)
[2019-09-20] MEDS: CYANOCOBALAMIN 500 MCG TABLET (VITAMIN B-12) PO SCH (09:11)
[2019-09-20] MEDS: ISOSORBIDE MONO EXTENDED REL 60 MG TABCR PO SCH (09:12)
[2019-09-20] MEDS: ASPIRIN 81 MG ECTAB PO SCH (09:12)
[2019-09-20] MEDS: POTASSIUM CHLORIDE 20 MEQ TABCR PO SCH (09:12)
[2019-09-20] MEDS: FAMOTIDINE 20 MG TAB PO SCH (09:12)
[2019-09-20] MEDS: carBAMazepine 200 MG TABLET PO SCH (09:12)
[2019-09-20] MEDS: CHECK FENTANYL PATCH PLACEMENT SCH ×3 (09:13→23:16)
[2019-09-20] MEDS: ALBUMIN 25% 50 ML with FUROSEMIDE 60 MG IV SCH (09:27)
--- NOTE | 2019-09-20 10:43 | Cardiology Consultation ---
Date of Consultation September 20, 2019 Assessment & Plan (1) Acute on chronic respiratory failure with hypoxia: Multifactorial decline. Possible component of angina and diastolic heart failure present though initial exacerbation appears to be pulmonary in etiology followed by additional corticosteroid. Patient has responded to therapies. Chest x-ray exam does not suggest profound volume overload but agree with cautious diuresis. Blood sugars significantly elevated, patient more anemic than past BMP, troponin are both elevated however EKG and echocardiogram without significant change with preserved LV systolic function IV heparin will be continued unless anemia becomes more profound or bleeding evident Will titrate therapeutic medications adding increased nitrates for blood pressure control. Single additional dose of albumin furosemide will be given but no further pending clinical course Ultimately goals medical stabilization, no indications for acute coronary invention/cardiac catheterization at this time (2) CKD (chronic kidney disease), stage III: (3) Chronic diastolic CHF (congestive heart failure): (4) Interstitial lung disease: (5) Hypertension: (6) CAD (coronary artery disease): (7) DM type 2 (diabetes mellitus, type 2): History of Present Illness Reason for Consultation: Elevated troponin acute dyspnea with respiratory failure Requesting Physician: Dr. Olmos Attending Physician: Luis Olmos MD History of Present Illness Patient is a 79-year-old female with chronic complex medical issues which include 1. ASCVD. Non ST segment elevation [place] in July 2009. Cardiac catheterization at [facility] in 2009 receiving a total of 3 drug eluting stents including 2 stents to the circumflex obtuse marginal territory in 1 drug eluting stent to the right coronary artery. Patient has chronic class 2- 3 angina pectoris with negative stress nuclear imaging June 2018 2. Chronic hypoxemic respiratory failure, on supplemental oxygen, 2.5 liters/minute via nasal cannula 28/03 with recent increased to 4 L nasal cannula 3. Possible interstitial lung disease with chronic left basilar atelectasis 4. Moderate asymptomatic carotid artery stenosis, followed by [facility] [place] [facility] 5. Hypertension 6. Dyslipidemia 7. Type 2 diabetes mellitus 8. History of multiple recurrent DVT's (RLE), prescribed chronic coumadin anticoagulation. s. 9. Multiple sclerosis with chronic parkinsonian-like tremor 10. History of seizure disorder. 11. Hypothyroidism Patient presents noting acute decline in overall function over the past 2 weeks notes possible viral exposure with worsening cough and wheezing. Saw primary provider 3 days prior to admission was begun on oral prednisone for symptoms. Date of admission she began experiencing worsening dyspnea as well as chest pressure pain upper epigastric and lower substernal region. Sublingual nitroglycerin appeared to aid in symptoms but did not relieve it completely until ER visit. On presentation patient was significantly hypoxic with marked hyperglycemia, anemia, elevated lactate BNP and troponin. Patient has responded to initial therapies that included albuterol nebulizer, sublingual nitroglycerin and single dose of IV furosemide with brisk diuresis. Patient currently without acute symptoms. Notes increasing dyspnea and weakness times several days to weeks. Notes a fall approximately 2 weeks ago striking her back. Denies headache or visual changes chronic tremor remains present. Notes no bleeding difficulties melena medication of the hemoglobins are trending downward. Has chronic leg tenderness no rash or erythema. Appetite and weight per patient stable no acute indigestion or reflux. Propanolol recently increased due to increasing tremor though patient does not feel she is currently taking increased dose Allergies Allergy/AdvReac Type Severity Reaction Status Date / Time allopurinol Allergy Unknown COUGH Verified 09/19/19 21:24 blue dye Allergy Unknown BRILLIANT Verified 09/19/19 23:05 BLUE FCF dimethyl fumarate Allergy Unknown UNKNOWN Verified 09/19/19 21:24 Home Medications Home Medications Medication Instructions Recorded Confirmed Type Oxygen Home #1 ea 05/25/19 09/03/19 History ascorbic acid (vitamin C) 1,000 mg 1,000 mg PO Q12H 05/25/19 09/19/19 History tablet,extended release aspirin 81 mg tablet,delayed 81 mg PO DAILY tab 05/25/19 09/19/19 History release biotin 5 mg tablet 5 tab PO DAILY tab 05/25/19 09/19/19 History cyanocobalamin (vitamin B-12) 2,000 mcg PO DAILY tab 05/25/19 09/19/19 History 1,000 mcg tablet fentanyl 25 mcg/hr transdermal 1 patch TD .COMPLEX ea 05/25/19 09/19/19 History patch lidocaine 5 % topical patch See Rx Instructions TRANSDERMAL 05/25/19 09/19/19 History .COMPLEX ea pioglitazone 15 mg tablet 15 mg PO DAILY tab 05/25/19 09/19/19 History warfarin 1 mg tablet 4.5 mg PO DAILY tab 05/25/19 09/19/19 History buspirone 10 mg tablet 10 mg PO BID 09/03/19 09/19/19 History carbamazepine 200 mg tablet 200 mg PO DAILY tab 09/03/19 09/19/19 History dulaglutide 1.5 mg/0.5 mL 1.5 mg SQ WEEKLY ml 09/03/19 09/19/19 History subcutaneous pen injector furosemide 40 mg tablet 40 mg PO DAILY PRN 09/03/19 09/19/19 History gabapentin 800 mg tablet 800 mg PO TID #270 tab 09/03/19 09/19/19 Rx glipizide 10 mg tablet 10 mg PO BID 09/03/19 09/19/19 History isosorbide mononitrate 60 mg 60 mg PO DAILY 09/03/19 09/19/19 History tablet,extended release 24 hr levothyroxine 100 mcg tablet 100 mcg PO DAILY 09/03/19 09/19/19 History lorazepam 0.5 mg tablet 0.5 mg PO DAILY PRN 09/03/19 09/19/19 History metformin 500 mg tablet 500 mg PO QAM 09/03/19 09/19/19 History nitroglycerin 0.4 mg sublingual 0.4 mg SL Q5M PRN 09/03/19 09/19/19 History tablet potassium chloride 10 mEq 10 meq PO DAILY 09/03/19 09/19/19 History tablet,extended release acetaminophen [Tylenol] 650 mg PO Q6 PRN 09/19/19 09/19/19 History albuterol sulfate 2.5 mg INHALATION Q4 PRN 09/19/19 09/19/19 History ergocalciferol (vitamin D2) 1,250 mcg PO WK 09/19/19 09/19/19 History [Vitamin D2] folic acid 0.4 mg PO DAILY 09/19/19 09/19/19 History hydrochlorothiazide 12.5 mg PO DAILY 09/19/19 09/19/19 History promethazine 12.5 - 25 mg PO UD PRN 09/19/19 09/19/19 History propranolol 80 mg PO .STOPPED PER PT 09/19/19 09/19/19 History ranitidine HCl 150 mg PO BID 09/19/19 09/19/19 History senna 8.6 mg PO BID 09/19/19 09/19/19 History vitamin E 1,000 unit PO DAILY 09/19/19 09/19/19 History Patient History Medical History CAD (coronary artery disease) July 2009 -NSTEMI 2009-2 KYLER to circumflex obtuse marginal, 1 KYLER to RCA Carotid artery stenosis Chronic diastolic CHF (congestive heart failure) Chronic respiratory failure with hypoxia CKD (chronic kidney disease), stage III DM type 2 (diabetes mellitus, type 2) Dyslipidemia History of DVT (deep vein thrombosis) Hypertension Hypothyroidism Interstitial lung disease Legally blind Multiple sclerosis Seizure disorder Surgical History History of hysterectomy History of tonsillectomy Hx of cholecystectomy Family History Mother Heart disease Social History Preferred Language: Slovak Communication Ability: Effective Beliefs That Will Affect Care: None Current Living Situation: Spouse and Family Feels Safe at Home: Yes Safety Concerns: Feels Safe At This Time Smoking Status: Never smoker Hx Alcohol Use: No Hx Substance Use: No Review of Systems Review of Systems: All systems reviewed & are unremarkable except as noted in HPI & below Physical Exam Constitutional: WD/WN, vitals as above + obese Eyes: PERRL, conjunctivae normal, anicteric sclerae ENMT: external ear and nose normal, oropharynx normal Neck: trachea midline, no thyromegaly + thick neck Respiratory: Auscultation: + diminished lung sounds and + wheezes (More pronounced with cough) Cardiovascular: Rate/Rhythm: regular rate and regular rhythm Heart Sounds: normal S1 and normal S2; no gallop and no murmur Palpation: normal PMI Vessels: normal carotid upstroke and radial pulses present; no JVD and no carotid bruit Extremities: no edema Gastrointestinal (Abdomen): normal bowel sounds, soft, nontender, no hepatosplenomegaly Musculoskeletal: no cyanosis or clubbing, extremities motor strength 5/5 Skin: no rashes, warm and dry Neurologic: PERRL, EOMI, accommodation nl, no face palsy, no dysarthria Psychiatric: A+Ox3, euthymic affect Results & Data Vital Signs (Past 12 Hours) Vital Signs Temp Pulse Pulse Resp BP Pulse Ox 09/20/19 07:51 36.6 C 80 20 157/77 H 96 09/20/19 07:34 88 18 97 09/20/19 04:40 36.7 C 87 20 161/85 H 100 09/20/19 00:27 88 20 97 09/20/19 00:00 117 H 09/19/19 23:02 36.7 C 105 H 22 180/83 H 100 Laboratory Results Laboratory Results - last 24 hr 09/19/19 09/19/19 09/19/19 19:26 19:26 19:26 WBC 9.32 RBC 3.09 L Hgb 10.3 L Hct 31.2 L MCV 101.0 H MCH 33.3 MCHC 33.0 RDW Std Deviation 48.8 H RDW Coeff of Gillian 13.3 Plt Count 291 MPV 10.8 H Immature Gran % (Auto) 0.1 Neut % (Auto) 89.4 Lymph % (Auto) 6.9 Stevens % (Auto) 3.5 Eos % (Auto) 0.0 Baso % (Auto) 0.1 Immature Gran # (Auto) 0.01 Neut # (Auto) 8.33 H Lymph # (Auto) 0.64 L Stevens # (Auto) 0.33 Eos # (Auto) 0.00 Baso # (Auto) 0.01 PT 18.5 H INR 1.9 H APTT 32.3 H PTT Ratio 1.2 VBG pH VBG pCO2 VBG pO2 VBG HCO3 VBG O2 Saturation VBG Base Excess Barometric Pressure Sodium 133 L Potassium 4.0 Chloride 97 L Carbon Dioxide 26 Anion Gap 10.0 BUN 17 Creatinine 1.57 H Est Cr Clr Drug Dosing 31.7 Est GFR ( Amer) 36.2 Est GFR (Non-Af Amer) 31.3 BUN/Creatinine Ratio 10.8 Glucose 446 H* POC Glucose Estimat Average Glucose Hemoglobin A1c Lactate Calcium 9.0 Magnesium Total Bilirubin 0.3 AST 16 ALT 22 Alkaline Phosphatase 56 Troponin I 0.097 H* NT-Pro-B Natriuret Pep Total Protein 7.3 Albumin 3.3 L Globulin 4.0 Albumin/Globulin Ratio 0.8 L Triglycerides Cholesterol LDL Cholesterol, Calc VLDL Cholesterol, Calc HDL Cholesterol Cholesterol/HDL Ratio Beta-Hydroxybutyric Acd 3.46 H Procalcitonin TSH Urine Color Urine Appearance Urine pH Ur Specific [place] Urine Protein Urine Glucose (UA) Urine Ketones Urine Blood Urine Nitrite Urine Bilirubin Urine Urobilinogen Ur Leukocyte Esterase Carbamazepine Influenza Type A (PCR) Influenza Type B (PCR) 09/19/19 09/19/19 09/19/19 19:27 19:27 19:27 WBC RBC Hgb Hct MCV MCH MCHC RDW Std Deviation RDW Coeff of Gillian Plt Count MPV Immature Gran % (Auto) Neut % (Auto) Lymph % (Auto) Stevens % (Auto) Eos % (Auto) Baso % (Auto) Immature Gran # (Auto) Neut # (Auto) Lymph # (Auto) Stevens # (Auto) Eos # (Auto) Baso # (Auto) PT INR APTT PTT Ratio VBG pH 7.38 VBG pCO2 44 VBG pO2 40 VBG HCO3 25 VBG O2 Saturation 71.4 VBG Base Excess 0 Barometric Pressure 732.0 Sodium Potassium Chloride Carbon Dioxide Anion Gap BUN Creatinine Est Cr Clr Drug Dosing Est GFR ( Amer) Est GFR (Non-Af Amer) BUN/Creatinine Ratio Glucose POC Glucose Estimat Average Glucose Hemoglobin A1c Lactate 4.6 H* Calcium Magnesium 1.4 L Total Bilirubin AST ALT Alkaline Phosphatase Troponin I NT-Pro-B Natriuret Pep 4776 H Total Protein Albumin Globulin Albumin/Globulin Ratio Triglycerides Cholesterol LDL Cholesterol, Calc VLDL Cholesterol, Calc HDL Cholesterol Cholesterol/HDL Ratio Beta-Hydroxybutyric Acd Procalcitonin TSH 0.604 Urine Color Urine Appearance Urine pH Ur Specific [place] Urine Protein Urine Glucose (UA) Urine Ketones Urine Blood Urine Nitrite Urine Bilirubin Urine Urobilinogen Ur Leukocyte Esterase Carbamazepine Influenza Type A (PCR) Influenza Type B (PCR) 09/19/19 09/19/19 09/19/19 19:27 19:29 21:34 WBC RBC Hgb Hct MCV MCH MCHC RDW Std Deviation RDW Coeff of Gillian Plt Count MPV Immature Gran % (Auto) Neut % (Auto) Lymph % (Auto) Stevens % (Auto) Eos % (Auto) Baso % (Auto) Immature Gran # (Auto) Neut # (Auto) Lymph # (Auto) Stevens # (Auto) Eos # (Auto) Baso # (Auto) PT INR APTT PTT Ratio VBG pH VBG pCO2 VBG pO2 VBG HCO3 VBG O2 Saturation VBG Base Excess Barometric Pressure Sodium Potassium Chloride Carbon Dioxide Anion Gap BUN Creatinine Est Cr Clr Drug Dosing Est GFR ( Amer) Est GFR (Non-Af Amer) BUN/Creatinine Ratio Glucose POC Glucose Estimat Average Glucose Hemoglobin A1c Lactate 5.9 H* Calcium Magnesium Total Bilirubin AST ALT Alkaline Phosphatase Troponin I NT-Pro-B Natriuret Pep Total Protein Albumin Globulin Albumin/Globulin Ratio Triglycerides Cholesterol LDL Cholesterol, Calc VLDL Cholesterol, Calc HDL Cholesterol Cholesterol/HDL Ratio Beta-Hydroxybutyric Acd Procalcitonin < 0.05 TSH Urine Color Urine Appearance Urine pH Ur Specific [place] Urine Protein Urine Glucose (UA) Urine Ketones Urine Blood Urine Nitrite Urine Bilirubin Urine Urobilinogen Ur Leukocyte Esterase Carbamazepine Influenza Type A (PCR) Neg for Influ A Influenza Type B (PCR) Neg for Influ B 09/19/19 09/19/19 09/19/19 21:53 23:00 23:01 WBC RBC Hgb Hct MCV MCH MCHC RDW Std Deviation RDW Coeff of Gillian Plt Count MPV Immature Gran % (Auto) Neut % (Auto) Lymph % (Auto) Stevens % (Auto) Eos % (Auto) Baso % (Auto) Immature Gran # (Auto) Neut # (Auto) Lymph # (Auto) Stevens # (Auto) Eos # (Auto) Baso # (Auto) PT INR APTT PTT Ratio VBG pH VBG pCO2 VBG pO2 VBG HCO3 VBG O2 Saturation VBG Base Excess Barometric Pressure Sodium Potassium Chloride Carbon Dioxide Anion Gap BUN Creatinine Est Cr Clr Drug Dosing Est GFR ( Amer) Est GFR (Non-Af Amer) BUN/Creatinine Ratio Glucose POC Glucose 430 H* 411 H* 434 H* Estimat Average Glucose Hemoglobin A1c Lactate Calcium Magnesium Total Bilirubin AST ALT Alkaline Phosphatase Troponin I NT-Pro-B Natriuret Pep Total Protein Albumin Globulin Albumin/Globulin Ratio Triglycerides Cholesterol LDL Cholesterol, Calc VLDL Cholesterol, Calc HDL Cholesterol Cholesterol/HDL Ratio Beta-Hydroxybutyric Acd Procalcitonin TSH Urine Color Urine Appearance Urine pH Ur Specific [place] Urine Protein Urine Glucose (UA) Urine Ketones Urine Blood Urine Nitrite Urine Bilirubin Urine Urobilinogen Ur Leukocyte Esterase Carbamazepine Influenza Type A (PCR) Influenza Type B (PCR) 09/19/19 09/20/19 09/20/19 23:30 00:10 00:10 WBC RBC Hgb Hct MCV MCH MCHC RDW Std Deviation RDW Coeff of Gillian Plt Count MPV Immature Gran % (Auto) Neut % (Auto) Lymph % (Auto) Stevens % (Auto) Eos % (Auto) Baso % (Auto) Immature Gran # (Auto) Neut # (Auto) Lymph # (Auto) Stevens # (Auto) Eos # (Auto) Baso # (Auto) PT INR APTT PTT Ratio VBG pH VBG pCO2 VBG pO2 VBG HCO3 VBG O2 Saturation VBG Base Excess Barometric Pressure Sodium Potassium Chloride Carbon Dioxide Anion Gap BUN Creatinine Est Cr Clr Drug Dosing Est GFR ( Amer) Est GFR (Non-Af Amer) BUN/Creatinine Ratio Glucose POC Glucose Estimat Average Glucose Hemoglobin A1c Lactate Calcium Magnesium Total Bilirubin AST ALT Alkaline Phosphatase Troponin I 0.106 H* NT-Pro-B Natriuret Pep Total Protein Albumin Globulin Albumin/Globulin Ratio Triglycerides Cholesterol LDL Cholesterol, Calc VLDL Cholesterol, Calc HDL Cholesterol Cholesterol/HDL Ratio Beta-Hydroxybutyric Acd Procalcitonin TSH Urine Color Yellow Urine Appearance Clear Urine pH 5.0 Ur Specific [place] 1.015 Urine Protein Negative Urine Glucose (UA) 3+ H Urine Ketones Negative Urine Blood Negative Urine Nitrite Negative Urine Bilirubin Negative Urine Urobilinogen Negative Ur Leukocyte Esterase Negative Carbamazepine 4.1 Influenza Type A (PCR) Influenza Type B (PCR) 09/20/19 09/20/19 09/20/19 06:02 06:03 06:11 WBC RBC Hgb Hct MCV MCH MCHC RDW Std Deviation RDW Coeff of Gillian Plt Count MPV Immature Gran % (Auto) Neut % (Auto) Lymph % (Auto) Stevens % (Auto) Eos % (Auto) Baso % (Auto) Immature Gran # (Auto) Neut # (Auto) Lymph # (Auto) Stevens # (Auto) Eos # (Auto) Baso # (Auto) PT INR APTT PTT Ratio VBG pH VBG pCO2 VBG pO2 VBG HCO3 VBG O2 Saturation VBG Base Excess Barometric Pressure Sodium Potassium Chloride Carbon Dioxide Anion Gap BUN Creatinine Est Cr Clr Drug Dosing Est GFR ( Amer) Est GFR (Non-Af Amer) BUN/Creatinine Ratio Glucose POC Glucose 323 H* 342 H* Estimat Average Glucose 203 Hemoglobin A1c 8.7 H Lactate Calcium Magnesium Total Bilirubin AST ALT Alkaline Phosphatase Troponin I NT-Pro-B Natriuret Pep Total Protein Albumin Globulin Albumin/Globulin Ratio Triglycerides Cholesterol LDL Cholesterol, Calc VLDL Cholesterol, Calc HDL Cholesterol Cholesterol/HDL Ratio Beta-Hydroxybutyric Acd Procalcitonin TSH Urine Color Urine Appearance Urine pH Ur Specific [place] Urine Protein Urine Glucose (UA) Urine Ketones Urine Blood Urine Nitrite Urine Bilirubin Urine Urobilinogen Ur Leukocyte Esterase Carbamazepine Influenza Type A (PCR) Influenza Type B (PCR) 09/20/19 09/20/19 09/20/19 06:11 06:11 06:12 WBC 9.65 RBC 2.80 L Hgb 9.3 L Hct 28.1 L MCV 100.4 H MCH 33.2 MCHC 33.1 RDW Std Deviation 48.5 H RDW Coeff of Gillian 13.2 Plt Count 244 MPV 10.1 Immature Gran % (Auto) 0.2 Neut % (Auto) 79.8 Lymph % (Auto) 9.2 Stevens % (Auto) 10.6 Eos % (Auto) 0.1 Baso % (Auto) 0.1 Immature Gran # (Auto) 0.02 Neut # (Auto) 7.70 H Lymph # (Auto) 0.89 L Stevens # (Auto) 1.02 H Eos # (Auto) 0.01 Baso # (Auto) 0.01 PT 16.8 H INR 1.7 H APTT 60.9 H* PTT Ratio 2.2 VBG pH VBG pCO2 VBG pO2 VBG HCO3 VBG O2 Saturation VBG Base Excess Barometric Pressure Sodium 136 Potassium 3.6 Chloride 99 Carbon Dioxide 31 Anion Gap 6.0 BUN 20 H Creatinine 1.43 H Est Cr Clr Drug Dosing 32.8 Est GFR ( Amer) 40.6 Est GFR (Non-Af Amer) 35.0 BUN/Creatinine Ratio 13.6 Glucose 295 H POC Glucose Estimat Average Glucose Hemoglobin A1c Lactate Calcium 8.9 Magnesium 2.0 Total Bilirubin AST ALT Alkaline Phosphatase Troponin I 0.266 H* NT-Pro-B Natriuret Pep Total Protein Albumin Globulin Albumin/Globulin Ratio Triglycerides 120 Cholesterol 199 LDL Cholesterol, Calc 116 VLDL Cholesterol, Calc 24 HDL Cholesterol 59 Cholesterol/HDL Ratio 3 Beta-Hydroxybutyric Acd Procalcitonin TSH Urine Color Urine Appearance Urine pH Ur Specific [place] Urine Protein Urine Glucose (UA) Urine Ketones Urine Blood Urine Nitrite Urine Bilirubin Urine Urobilinogen Ur Leukocyte Esterase Carbamazepine Influenza Type A (PCR) Influenza Type B (PCR) 09/20/19 06:12 WBC RBC Hgb Hct MCV MCH MCHC RDW Std Deviation RDW Coeff of Gillian Plt Count MPV Immature Gran % (Auto) Neut % (Auto) Lymph % (Auto) Stevens % (Auto) Eos % (Auto) Baso % (Auto) Immature Gran # (Auto) Neut # (Auto) Lymph # (Auto) Stevens # (Auto) Eos # (Auto) Baso # (Auto) PT INR APTT PTT Ratio VBG pH VBG pCO2 VBG pO2 VBG HCO3 VBG O2 Saturation VBG Base Excess Barometric Pressure Sodium Potassium Chloride Carbon Dioxide Anion Gap BUN Creatinine Est Cr Clr Drug Dosing Est GFR ( Amer) Est GFR (Non-Af Amer) BUN/Creatinine Ratio Glucose POC Glucose Estimat Average Glucose Hemoglobin A1c Lactate 2.3 H* Calcium Magnesium Total Bilirubin AST ALT Alkaline Phosphatase Troponin I NT-Pro-B Natriuret Pep Total Protein Albumin Globulin Albumin/Globulin Ratio Triglycerides Cholesterol LDL Cholesterol, Calc VLDL Cholesterol, Calc HDL Cholesterol Cholesterol/HDL Ratio Beta-Hydroxybutyric Acd Procalcitonin TSH Urine Color Urine Appearance Urine pH Ur Specific [place] Urine Protein Urine Glucose (UA) Urine Ketones Urine Blood Urine Nitrite Urine Bilirubin Urine Urobilinogen Ur Leukocyte Esterase Carbamazepine Influenza Type A (PCR) Influenza Type B (PCR) Diagnostic Findings EKG: Sinus rhythm with nonspecific inferolateral ST segment changes unchanged from prior start outpatient study of 08/22/2019 Echocardiogram: Preliminary moderate left hypertrophy with preserved LV systolic function
[2019-09-20] MEDS: NITROGLYCERIN 2% OINTMENT 30GM TUBE EXT SCH ×3 (13:05→23:16)
--- NOTE | 2019-09-20 16:44 | Electrocardiogram Report ---
Test Reason : Blood Pressure : / mmHG Vent. Rate : 107 BPM Atrial Rate : 107 BPM P-R Int : 182 ms QRS Dur : 090 ms QT Int : 348 ms P-R-T Axes : 078 010 110 degrees QTc Int : 464 ms Sinus tachycardia with Premature atrial complexes Abnormal ECG When compared with ECG of 31-AUG-2017 14:36, ST now depressed in Lateral leads T wave inversion now evident in Lateral leads Confirmed by Nirmal Cummins ([id number]) on 09/20/2019 4:43:48 PM Referred By: REFERRED SELF Confirmed By:Nirmal Cummins
--- NOTE | 2019-09-20 17:22 | Electrocardiogram Report ---
Test Reason : Blood Pressure : / mmHG Vent. Rate : 080 BPM Atrial Rate : 080 BPM P-R Int : 204 ms QRS Dur : 086 ms QT Int : 392 ms P-R-T Axes : 068 009 196 degrees QTc Int : 452 ms Normal sinus rhythm Abnormal ECG When compared with ECG of 19-SEP-2019 18:34, (unconfirmed) Premature atrial complexes are no longer Present Nonspecific T wave abnormality now evident in Inferior leads T wave inversion now evident in Anterior leads Confirmed by Nirmal Cummins ([id number]) on 09/20/2019 5:21:59 PM Referred By: REFERRED SELF Confirmed By:Nirmal Cummins
--- NOTE | 2019-09-20 17:47 | Hospitalist Progress Note ---
Date of Service September 20, 2019 Assessment & Plan (1) Acute on chronic respiratory failure with hypoxia: Present on admission with worsening SOB associated with SOB CXR showed subtle increased right lung markings. ProBNP 4776 on admission Received Lasix 40mg IV on admission Cardiology on board Lasix 60mg with albumin given today Echo showed moderate concentric left ventricular hypertrophy. Left ventricular wall motion is normal with ejection fraction 60 to 65%. Monitor I/O Will do fluid restriction to 1.5L daily Monitor BMP while getting IV laisx Elevated troponin Possible related to demand ischemia due to CHF Troponin peak to 0.3 EKG showed no acute ischemic changes Continue heparin drip since INR subtherapeutic Will trend troponin No indications for acute coronary invention/cardiac catheterization at this time as per cardio Continue aspirin and metoprolol DM type 2 Hba1c 8.7 Will hold oral DM meds On Lantus and novolog sliding scale Continue monitor BS Elevated Lactate Mostly related to hypoxia Afebrile and no leukocytosis No sign of infection Lactic acid normalized HTN Continue BP meds Hypothyroidism Continue Levothyroxine Hx DVT on heparin drip INR 1.7 today Will resume coumadin DVT px on heparin drip CODE Status FULL CODE Subjective Pt was seen and examined Lying in bed with no distress Pt said that her breathing is slightly better today Denies any chest pain, palpitation, dizziness and SOB Physical Exam Physical Exam: General- No acute distress Head- atraumatic Eyes- PERRL, EOMI, ENT- oropharynx clear Neck- supple, no JVD Lungs- +crackles Heart- regular rhythm; no murmur Abdomen- normal bowel sounds, soft, nontender Extremities- no calf tenderness Neuro- alert, oriented x 3; PERRL, EOMI; no facial palsy; no dysarthria Skin- warm & dry Results & Data Vital Signs (Past 12 Hours) Vital Signs Temp Pulse Pulse Resp BP Pulse Ox 09/20/19 15:32 36.9 C 81 18 155/79 H 98 09/20/19 15:00 81 09/20/19 13:23 75 18 99 09/20/19 07:51 36.6 C 80 20 157/77 H 96 09/20/19 07:34 88 18 97
[2019-09-20] MEDS ORDERED: WARFARIN SOD 5 MG TAB PO ONE (18:18)
[2019-09-20] MEDS ORDERED: Nursing to Pharmacy Communication ONE (19:36)
[2019-09-20] MEDS: HEPARIN SODIUM/DEXTROSE 25,000 UNITS/500 ML BAG IV SCH (20:52)
[2019-09-20] MEDS: INSULIN GLARGINE SOLOSTAR 100 UNITS/ML 3 ML PEN SC SCH (20:54)
[2019-09-20] MEDS ORDERED: INSULIN GLARGINE SOLOSTAR 100 UNITS/ML 3 ML PEN SC SCH (21:00)
[2019-09-21] MEDS: IPRATROPIUM BROMIDE NEB SOLN 0.02% 2.5 ML VIAL INH SCH ×4 (00:10→19:41)
[2019-09-21] MEDS: LEVALBUTEROL 1.25MG/0.5ML NEB INH SCH ×4 (00:11→19:40)
[2019-09-21] MEDS: NITROGLYCERIN 2% OINTMENT 30GM TUBE EXT SCH (05:59)
[2019-09-21] MEDS: LEVOTHYROXINE SODIUM 100 MCG TABLET PO SCH (05:59)
[2019-09-21 07:10] LABS: Hematocrit (blood only) 30.2 % (37-47); Hemoglobin 9.7 g/dL (12.0-16.0); Mean Corpuscular Hgb Conc 32.1 g/dL (32-36); Mean Corpuscular Volume 102.7 fL (80-100); Mean Platelet Volume 10.3 fL (7.4-10.4); Platelet Count 239 K/uL (130-400); RDW Coefficient of Variation 13.5 % (11.5-14.5); RDW Standard Deviation 50.5 fL (36.4-46.3); Red Blood Count 2.94 M/uL (4.2-5.4); White Blood Count 6.81 K/uL (4.8-10.8)
[2019-09-21 07:32] LABS: INR 1.4 (0.9-1.1); Partial Thromboplastin Ratio 3.7; Prothrombin Time 14.3 Seconds (9.0-12.0)
[2019-09-21 07:35] LABS: Partial Thromboplastin Time 100.8 Seconds (21.0-31.0)
[2019-09-21 07:40] LABS: BUN Creatinine Ratio 13.8 (10-20); Calcium 8.8 mg/dl (8.5-10.1); Creatinine Clr Calc Pharmacy 40.3 ml/min; Est GFR (African American) 52.2; Est GFR (Non-African American) 45.1
[2019-09-21] MEDS: carBAMazepine 200 MG TABLET PO SCH (08:29)
[2019-09-21] MEDS: PROPRANOLOL HCL 60 MG LA CAP PO SCH (08:30)
[2019-09-21] MEDS: CYANOCOBALAMIN 500 MCG TABLET (VITAMIN B-12) PO SCH (08:30)
[2019-09-21] MEDS: POTASSIUM CHLORIDE 20 MEQ TABCR PO SCH (08:30)
[2019-09-21] MEDS: FAMOTIDINE 20 MG TAB PO SCH (08:30)
[2019-09-21] MEDS: ISOSORBIDE MONO EXTENDED REL 60 MG TABCR PO SCH (08:31)
[2019-09-21] MEDS: guaiFENesin 600 MG TABCR PO SCH ×2 (08:31→21:12)
[2019-09-21] MEDS: ASPIRIN 81 MG ECTAB PO SCH (08:31)
[2019-09-21] MEDS: GABAPENTIN 800 MG TAB PO SCH ×3 (08:32→21:12)
[2019-09-21] MEDS: INSULIN ASPART 100 UNITS/ML 3 ML PEN SC SCH ×4 (08:33→21:09)
[2019-09-21] MEDS: INSULIN GLARGINE SOLOSTAR 100 UNITS/ML 3 ML PEN SC SCH ×2 (08:33→21:11)
[2019-09-21] MEDS: ALBUMIN 25% 50 ML with FUROSEMIDE 60 MG IV SCH (08:34)
[2019-09-21] MEDS: CHECK FENTANYL PATCH PLACEMENT SCH ×2 (08:34→15:24)
[2019-09-21] MEDS ORDERED: CALCIUM CARBONATE 500 MG CHEWABLE TAB ONE (08:53)
[2019-09-21] MEDS ORDERED: CALCIUM CARBONATE 500 MG CHEWABLE TAB PO PRN (08:54)
--- NOTE | 2019-09-21 11:02 | Cardiology Progress Note ---
Date of Service September 21, 2019 Assessment & Plan (1) Acute on chronic respiratory failure with hypoxia: Multifactorial decline. Possible component of angina and diastolic heart failure present though initial exacerbation appears to be pulmonary in etiology followed by additional corticosteroid. Patient has responded to therapies. Chest x-ray exam does not suggest profound volume overload but agree with cautious diuresis. Blood sugars significantly elevated, patient more anemic than past BMP, troponin are both elevated however EKG and echocardiogram without significant change with preserved LV systolic function IV heparin will be continued unless anemia becomes more profound or bleeding evident Will titrate therapeutic medications adding increased nitrates for blood pressure control. Single additional dose of albumin furosemide will be given but no further pending clinical course Ultimately goals medical stabilization, no indications for acute coronary invention/cardiac catheterization at this time Troponin elevation remains flat and likely reflects acute illness and demand ischemia from acute coronary syndrome Patient clinically improved today will increase isosorbide mononitrate to 120 mg p.o. daily, discontinue Nitropaste Patient should continue oral furosemide on discharge 40 mg p.o. daily (2) CKD (chronic kidney disease), stage III: (3) Chronic diastolic CHF (congestive heart failure): (4) Interstitial lung disease: (5) Hypertension: (6) CAD (coronary artery disease): (7) DM type 2 (diabetes mellitus, type 2): Subjective Patient seen, chart medications and telemetry reviewed. Feels clinically improved other than mild nausea this morning. No worsening shortness of breath. No further chest pain or chest pressure. No dizziness or lightheadedness. No arrhythmias on telemetry. Blood sugars better controlled. Adequate diuresis with doses of furosemide received Review of Systems Review of Systems: All systems reviewed & are unremarkable except as noted in HPI & below Physical Exam Constitutional: WD/WN, vitals as above + obese Eyes: PERRL, conjunctivae normal, anicteric sclerae ENMT: external ear and nose normal, oropharynx normal Neck: trachea midline, no thyromegaly + thick neck Respiratory: Auscultation: + diminished lung sounds and + wheezes (Less prono unced than day prior) Cardiovascular: Rate/Rhythm: regular rate and regular rhythm Heart Sounds: normal S1 and normal S2; no gallop and no murmur Palpation: normal PMI Vessels: normal carotid upstroke and radial pulses present; no JVD and no carotid bruit Extremities: no edema Gastrointestinal (Abdomen): normal bowel sounds, soft, nontender, no hepatosplenomegaly Musculoskeletal: no cyanosis or clubbing, extremities motor strength 5/5 Skin: no rashes, warm and dry Neurologic: PERRL, EOMI, accommodation nl, no face palsy, no dysarthria Psychiatric: A+Ox3, euthymic affect Results & Data Vital Signs (Past 12 Hours) Vital Signs Temp Pulse Resp BP Pulse Ox 09/21/19 08:05 36.8 C 74 18 159/69 H 96 09/21/19 06:55 76 18 98 09/21/19 04:34 36.5 C 68 20 167/86 H 97 09/21/19 00:11 73 18 98 09/20/19 23:10 36.6 C 68 20 152/83 H 99 Laboratory Results Laboratory Results - last 24 hr 09/20/19 09/20/19 09/20/19 11:32 12:26 12:26 WBC RBC Hgb Hct MCV MCH MCHC RDW Std Deviation RDW Coeff of Gillian Plt Count MPV PT INR APTT PTT Ratio Sodium Potassium Chloride Carbon Dioxide Anion Gap BUN Creatinine Est Cr Clr Drug Dosing Est GFR ( Amer) Est GFR (Non-Af Amer) BUN/Creatinine Ratio Glucose POC Glucose 180 H Lactate 1.2 Calcium Troponin I 0.359 H* 09/20/19 09/20/19 09/20/19 16:08 18:26 20:02 WBC RBC Hgb Hct MCV MCH MCHC RDW Std Deviation RDW Coeff of Gillian Plt Count MPV PT INR APTT PTT Ratio Sodium Potassium Chloride Carbon Dioxide Anion Gap BUN Creatinine Est Cr Clr Drug Dosing Est GFR ( Amer) Est GFR (Non-Af Amer) BUN/Creatinine Ratio Glucose POC Glucose 219 H 260 H Lactate Calcium Troponin I 0.278 H* 09/21/19 09/21/19 09/21/19 06:46 06:46 06:46 WBC 6.81 RBC 2.94 L Hgb 9.7 L Hct 30.2 L MCV 102.7 H MCH 33.0 MCHC 32.1 RDW Std Deviation 50.5 H RDW Coeff of Gillian 13.5 Plt Count 239 MPV 10.3 PT 14.3 H INR 1.4 H APTT 100.8 H* PTT Ratio 3.7 Sodium 139 Potassium 4.0 Chloride 103 Carbon Dioxide 33 H Anion Gap 3.0 BUN 16 Creatinine 1.16 Est Cr Clr Drug Dosing 40.3 Est GFR ( Amer) 52.2 Est GFR (Non-Af Amer) 45.1 BUN/Creatinine Ratio 13.8 Glucose 112 H POC Glucose Lactate Calcium 8.8 Troponin I 09/21/19 07:25 WBC RBC Hgb Hct MCV MCH MCHC RDW Std Deviation RDW Coeff of Gillian Plt Count MPV PT INR APTT PTT Ratio Sodium Potassium Chloride Carbon Dioxide Anion Gap BUN Creatinine Est Cr Clr Drug Dosing Est GFR ( Amer) Est GFR (Non-Af Amer) BUN/Creatinine Ratio Glucose POC Glucose 120 H Lactate Calcium Troponin I
[2019-09-21] MEDS ORDERED: ISOSORBIDE MONO EXTENDED REL 60 MG TABCR PO STA (11:17)
[2019-09-21 16:05] LABS: Partial Thromboplastin Ratio 1.9
[2019-09-21 16:37] LABS: Partial Thromboplastin Time 51.3 Seconds (21.0-31.0)
--- NOTE | 2019-09-21 18:21 | Hospitalist Progress Note ---
Date of Service September 21, 2019 Assessment & Plan (1) Acute on chronic respiratory failure with hypoxia: Acute on chronic diastolic CHF Present on admission with worsening SOB associated with SOB CXR showed subtle increased right lung markings. ProBNP 4776 on admission Received Lasix 40mg IV on admission Cardiology on board Lasix 60mg with albumin given yesterday and today Pt diuresis well Echo showed moderate concentric left ventricular hypertrophy. Left ventricular wall motion is normal with ejection fraction 60 to 65%. Continue fluid restriction to 1.5L daily Case discussed with cardiology recommended to resume oral lasix 40mg OK from cardiology standpoint to discharge home Elevated troponin Possible related to demand ischemia due to CHF Troponin peak to 0.3, then trending down EKG showed no acute ischemic changes Continue heparin drip since INR subtherapeutic while in the hospital No indications for acute coronary invention/cardiac catheterization at this time as per cardio Continue aspirin and metoprolol DM type 2 Hba1c 8.7 Will hold oral DM meds On Lantus and novolog sliding scale Continue monitor BS Elevated Lactate Mostly related to hypoxia Afebrile and no leukocytosis No sign of infection Lactic acid normalized HTN Continue BP meds Hypothyroidism Continue Levothyroxine Hx DVT on heparin drip INR 1.4 today Continue coumadin DVT px on heparin drip CODE Status FULL CODE Disposition Will discharge home tomorrow Follow up with your primary care provider Subjective Pt was seen and examined Lying in bed with no distress Pt said that her breathing feels much better today She said that she is on daily oxygen use Denies any chest pain, palpitation, dizziness and SOB Physical Exam Physical Exam: General- No acute distress Head- atraumatic Eyes- PERRL, EOMI, ENT- oropharynx clear Neck- supple, no JVD Lungs- Diminished BS Heart- regular rhythm; no murmur Abdomen- normal bowel sounds, soft, nontender Extremities- no calf tenderness Neuro- alert, oriented x 3; PERRL, EOMI; no facial palsy; no dysarthria Skin- warm & dry Results & Data Vital Signs (Past 12 Hours) Vital Signs Temp Pulse Resp BP Pulse Ox 09/21/19 16:05 36.8 C 70 18 121/69 98 09/21/19 14:01 76 20 98 09/21/19 11:08 36.7 C 80 18 135/80 97 09/21/19 08:05 36.8 C 74 18 159/69 H 96 09/21/19 06:55 76 18 98
[2019-09-21] MEDS ORDERED: WARFARIN SOD 5 MG TAB PO ONE (18:45)
[2019-09-21] MEDS: HEPARIN SODIUM/DEXTROSE 25,000 UNITS/500 ML BAG IV SCH (23:20)
[2019-09-22] MEDS: IPRATROPIUM BROMIDE NEB SOLN 0.02% 2.5 ML VIAL INH SCH ×2 (00:49→06:54)
[2019-09-22] MEDS: LEVALBUTEROL 1.25MG/0.5ML NEB INH SCH ×2 (00:49→06:54)
[2019-09-22] MEDS: LEVOTHYROXINE SODIUM 100 MCG TABLET PO SCH (06:12)
[2019-09-22 06:42] LABS: INR 1.4 (0.9-1.1); Partial Thromboplastin Ratio 2.7; Prothrombin Time 14.3 Seconds (9.0-12.0)
[2019-09-22 06:52] LABS: BUN Creatinine Ratio 13.9 (10-20); Calcium 9.1 mg/dl (8.5-10.1); Est GFR (African American) 42.7; Est GFR (Non-African American) 36.9
[2019-09-22 07:14] LABS: Partial Thromboplastin Time 73.9 Seconds (21.0-31.0)
[2019-09-22] MEDS: guaiFENesin 600 MG TABCR PO SCH (08:26)
[2019-09-22] MEDS: POTASSIUM CHLORIDE 20 MEQ TABCR PO SCH (08:26)
[2019-09-22] MEDS: carBAMazepine 200 MG TABLET PO SCH (08:27)
[2019-09-22] MEDS: GABAPENTIN 800 MG TAB PO SCH (08:27)
[2019-09-22] MEDS: ASPIRIN 81 MG ECTAB PO SCH (08:27)
[2019-09-22] MEDS: PROPRANOLOL HCL 60 MG LA CAP PO SCH (08:27)
[2019-09-22] MEDS: INSULIN GLARGINE SOLOSTAR 100 UNITS/ML 3 ML PEN SC SCH (08:28)
[2019-09-22] MEDS: INSULIN ASPART 100 UNITS/ML 3 ML PEN SC SCH (08:28)
[2019-09-22] MEDS: CYANOCOBALAMIN 500 MCG TABLET (VITAMIN B-12) PO SCH (08:28)
[2019-09-22] MEDS: FAMOTIDINE 20 MG TAB PO SCH (08:28)
[2019-09-22] MEDS: CHECK FENTANYL PATCH PLACEMENT SCH ×2 (08:29)
[2019-09-22] MEDS ORDERED: ISOSORBIDE MONO EXTENDED REL 60 MG TABCR PO SCH (09:00)
--- NOTE | 2019-09-22 09:34 | Hospitalist Progress Note ---
Date of Service September 22, 2019 Assessment & Plan (1) Acute on chronic respiratory failure with hypoxia: Acute on chronic diastolic CHF Present on admission with worsening SOB associated with SOB CXR showed subtle increased right lung markings. ProBNP 4776 on admission Received Lasix 40mg IV on admission Cardiology on board Lasix 60mg with albumin given yesterday and today Pt diuresis well Echo showed moderate concentric left ventricular hypertrophy. Left ventricular wall motion is normal with ejection fraction 60 to 65%. Continue fluid restriction to 1.5L daily Case discussed with cardiology recommended to resume oral lasix 40mg daily OK from cardiology standpoint to discharge home Check BMP in 1 week Elevated troponin Possible related to demand ischemia due to CHF Troponin peak to 0.3, then trending down EKG showed no acute ischemic changes Continue heparin drip since INR subtherapeutic while in the hospital No indications for acute coronary invention/cardiac catheterization at this time as per cardio Continue aspirin and metoprolol DM type 2 Hba1c 8.7 On Lantus and novolog sliding scale Will resume oral DM meds on discharge Continue monitor BS CKD stage 3 Creatinine 1.3 today, baseline 1.4-1.5 Oral lasix resume Check BMP in 1 week Elevated Lactate Mostly related to hypoxia Afebrile and no leukocytosis No sign of infection Lactic acid normalized HTN Isosorbide mononitrate increased to 120mg yesterday BP stable Hypothyroidism Continue Levothyroxine Hx DVT on heparin drip INR 1.4 today Continue coumadin DVT px on heparin drip CODE Status FULL CODE Disposition Will discharge home today Follow up with your primary care provider Subjective Pt was seen and examined Sitting in bed with no distress Pt said that her breathing feels much better She is said that she ready to be discharge today Denies any chest pain, palpitation, dizziness and fever Physical Exam Physical Exam: General- No acute distress Head- atraumatic Eyes- PERRL, EOMI, ENT- oropharynx clear Neck- supple, no JVD Lungs- Diminished BS Heart- regular rhythm; no murmur Abdomen- normal bowel sounds, soft, nontender Extremities- no calf tenderness Neuro- alert, oriented x 3; PERRL, EOMI; no facial palsy; no dysarthria Skin- warm & dry Results & Data Vital Signs (Past 12 Hours) Vital Signs Temp Pulse Pulse Resp BP Pulse Ox 09/22/19 06:57 72 18 100 09/22/19 06:39 36.5 C 70 20 144/80 H 100 09/22/19 04:24 36.7 C 72 19 157/80 H 100 09/22/19 00:49 77 16 97 09/22/19 00:00 73 09/21/19 23:16 36.8 C 71 16 110/69 97
[2019-09-22] MEDS ORDERED: FUROSEMIDE 40 MG TAB PO SCH (09:45)
--- NOTE | 2019-09-23 07:53 | Discharge Summary ---
Date of Service September 22, 2019 Admission HPI Per Admitting Provider 79-year-old female who presents the ED for evaluation of shortness of breath. Patient reports her symptoms began 3 days ago. She was seen by her PCP yesterday who placed her on prednisone. Shortness of breath progressively worse today. She also reports a persistent chest pain that developed today. Describes the pain as midsternally with radiation up into the neck and is a burning sensation. Patient reports taking 4 nitroglycerin at home without any relief of the discomfort. She reportedly received 3 nitroglycerin for EMS and currently reports she is chest pain-free. Patient reports orthopnea, worsening lower extremity edema, and abdominal distention. She does not weigh herself on a daily basis. She reports a dry, nonproductive cough that developed today. Chronically wears 2.5 L of oxygen at home. Patient had a fall last week. Reports that when she stood up, her legs simply would not go forward and she stumbled backwards falling onto her oxygen tank. She denies any loss of consciousness. No lightheadedness, dizziness, diaphoresis. She denies abdominal pain, nausea, vomiting, diarrhea. No fevers or chills. She denies any urinary symptoms. In the ED, patient was found to be hypoxic at 85%, this improved with oxygen 4 L via nasal cannula. Labs show elevated troponin 0.09, glucose 446, lactate 4.6, BNP 4776. CXR suggesting asymmetric pulmonary edema. Patient was given nebulizer treatment, full dose aspirin, Lasix 40 mg IV. Admission Exam Per Admitting Provider Constitutional: WD/WN, vitals as above + obese Eyes: Blind ENMT: external ear and nose normal, oropharynx normal Respiratory: normal respiratory effort and able to speak in complete sentences; no respiratory distress Auscultation: + crackles (Bilateral, mid to lower lung tamayo) Cardiovascular: regular rate and regular rhythm Vessels: normal peripheral pulses Extremities: + pedal edema (Trace, bilateral) Gastrointestinal: normal bowel sounds, soft, nontender, no hepatosplenomegaly Musculoskeletal: no cyanosis or clubbing, extremities motor strength 5/5 Skin: no rashes, warm and dry Neurologic: PERRL, EOMI, accommodation nl, no face palsy, no dysarthria Psychiatric: A+Ox3, euthymic affect Principal Diagnosis Acute on chronic respiratory failure with hypoxia: Acute on chronic diastolic CHF Elevated troponin Diabetes type 2 Chronic Kidney failure stage 3 Elevated Lactate Hypertension Hypothyroidism Hx DVT Discharge Exam General- No acute distress Head- atraumatic Eyes- PERRL, EOMI, ENT- oropharynx clear Neck- supple, no JVD Lungs- Diminished BS Heart- regular rhythm; no murmur Abdomen- normal bowel sounds, soft, nontender Extremities- no calf tenderness Neuro- alert, oriented x 3; PERRL, EOMI; no facial palsy; no dysarthria Skin- warm & dry Discharge Data Allergies Allergy/AdvReac Type Severity Reaction Status Date / Time allopurinol Allergy Unknown COUGH Verified 09/19/19 21:24 blue dye Allergy Unknown BRILLIANT Verified 09/19/19 23:05 BLUE FCF dimethyl fumarate Allergy Unknown UNKNOWN Verified 09/19/19 21:24 Consultations 09/19/19 20:48 ED Decision to Admit Stat 09/19/19 23:01 Consult Cardiology Routine Consult Case Management - Discharge Planning Routine Ordered Studies XR chest 1V portable CLINICAL HISTORY: Shortness of breath COMPARISON STUDY: 08/31/2017 FINDINGS: The heart is borderline enlarged. There is a prominent left cardiac phrenic angle fat pad. There is subtle increased density within the right hemithorax. This could be artifactual, or related to asymmetric edema or a right lung inflammatory process. A follow-up PA and lateral study is recommended.[ IMPRESSION: Subtle increased right lung markings. It is unclear whether this is artifactual, related to asymmetric edema, or a right lung inflammatory process. A follow-up PA and lateral study is recommended. ACT 112: Negative or not required by law. Electronically signed by: Adam Khoury M.D. 09/19/2019 7:19 PM Dictated: 09/19/191916 Transcribed: 09/19/191916 Hospital Course (1) Acute on chronic respiratory failure with hypoxia: Acute on chronic diastolic CHF Present on admission with worsening SOB associated with SOB CXR showed subtle increased right lung markings. ProBNP 4776 on admission Received Lasix 40mg IV on admission Cardiology on board Lasix 60mg with albumin given yesterday and today Pt diuresis well Echo showed moderate concentric left ventricular hypertrophy. Left ventricular wall motion is normal with ejection fraction 60 to 65%. Continue fluid restriction to 1.5L daily Case discussed with cardiology recommended to resume oral lasix 40mg daily OK from cardiology standpoint to discharge home Check BMP in 1 week Elevated troponin Possible related to demand ischemia due to CHF Troponin peak to 0.3, then trending down EKG showed no acute ischemic changes Continue heparin drip since INR subtherapeutic while in the hospital No indications for acute coronary invention/cardiac catheterization at this time as per cardio Continue aspirin and metoprolol DM type 2 Hba1c 8.7 On Lantus and novolog sliding scale Will resume oral DM meds on discharge Continue monitor BS CKD stage 3 Creatinine 1.3 today, baseline 1.4-1.5 Oral lasix resume Check BMP in 1 week Elevated Lactate Mostly related to hypoxia Afebrile and no leukocytosis No sign of infection Lactic acid normalized HTN Isosorbide mononitrate increased to 120mg yesterday BP stable Hypothyroidism Continue Levothyroxine Hx DVT on heparin drip INR 1.4 today Continue coumadin DVT px on heparin drip CODE Status FULL CODE Disposition Will discharge home today Follow up with your primary care provider Total Time Total Time Spent Total Time Spent (In Minutes): 35 minutes Total Time Includes: Examination of the Patient, Discharge Planning, Medication Reconciliation, Communication With Other Providers and Other Discharge Plan Discharge Items Patient Disposition: Home - Self-Care Reason For Visit: RESP FAILURE Discharge Diagnosis: Acute on chronic respiratory failure with hypoxia: Acute on chronic diastolic CHF Elevated troponin Diabetes type 2 Chronic Kidney failure stage 3 Elevated Lactate Hypertension Hypothyroidism Hx DVT Activity: Resume your previous activity Non-emergency contact: 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 Call non-emergency contact if: you have any medication questions Follow-up/Referrals: Chris Reis PA-C [Primary Care Provider] - Diet: Carb Consistent or DM2 and Heart Healthy Addtl Attending Provider Instructions: Please follow up with your primary care provider on Tuesday Follow up with your cardiology ( Please call to schedule for the appointment) Check BMP within 1 week to monitor electrolytes and renal function Monitor PT/INR with the coumadin clinic (Take coumadin 5 mg today) Fall precaution Continue oxygen supplement Continue fluid restriction with 1.5L daily Encourage outpatient physical therapy (Your physician can refer you if you are interested in therapy) Pending Studies at Discharge: No Stand-Alone Forms: My Real Time Content, Smoking Cessation Medications and DC Order Prescriptions: New isosorbide mononitrate 60 mg Tablet Extended Release 24 Hr 120 mg PO DAILY 30 Days Qty: 60 RF: 0 Continued lidocaine 5 % adhesive patch,medicated See Rx Instructions transdermal .COMPLEX RF: 0 fentanyl 25 mcg/hr patch 72 hour 1 patch TD .COMPLEX RF: 0 biotin 5 mg tablet 5 tab PO DAILY RF: 0 warfarin 1 mg tablet 4.5 mg PO DAILY RF: 0 aspirin 81 mg tablet,delayed release (DR/EC) 81 mg PO DAILY RF: 0 cyanocobalamin (vitamin B-12) 1,000 mcg tablet 2,000 mcg PO DAILY RF: 0 pioglitazone 15 mg tablet 15 mg PO DAILY RF: 0 ascorbic acid (vitamin C) 1,000 mg tablet extended release 1,000 mg PO Q12H RF: 0 (DME) Oxygen Home Liters Per Minute See Dose Instructions .ROUTE .MEDSUPPLY Qty: 1 RF: 0 buspirone 10 mg tablet 10 mg PO BID RF: 0 carbamazepine 200 mg tablet 200 mg PO DAILY RF: 0 glipizide 10 mg tablet 10 mg PO BID RF: 0 potassium chloride [Klor-Con 10] 10 mEq tablet extended release 10 meq PO DAILY RF: 0 levothyroxine [Synthroid] 100 mcg tablet 100 mcg PO DAILY RF: 0 lorazepam 0.5 mg tablet 0.5 mg PO DAILY PRN (Reason: Anxiety) RF: 0 Trulicity 1.5 mg/0.5 mL pen injector 1.5 mg SQ WEEKLY RF: 0 metformin 500 mg tablet 500 mg PO QAM RF: 0 nitroglycerin 0.4 mg tablet, sublingual 0.4 mg SL Q5M PRN (Reason: Chest Pain) RF: 0 gabapentin 800 mg tablet 800 mg PO TID Qty: 270 RF: 3 promethazine 12.5 mg tablet 12.5 - 25 mg PO UD PRN (Reason: Nausea) RF: 0 ranitidine HCl 150 mg tablet 150 mg PO BID RF: 0 senna 8.6 mg Capsule 8.6 mg PO BID RF: 0 vitamin E 1,000 unit Capsule 1,000 unit PO DAILY RF: 0 acetaminophen [Tylenol] 325 mg Tablet 650 mg PO Q6 PRN (Reason: Pain) RF: 0 albuterol sulfate 2.5 mg /3 mL (0.083 %) Solution For Nebulization 2.5 mg INHALATION Q4 PRN (Reason: Shortness Of Breath) RF: 0 folic acid 400 mcg Tablet 0.4 mg PO DAILY RF: 0 propranolol 80 mg capsule,extended release 24 hr 80 mg PO .STOPPED PER PT RF: 0 ergocalciferol (vitamin D2) [Vitamin D2] 1,250 mcg (50,000 unit) Capsule 1,250 mcg PO WK RF: 0 Changed furosemide 40 mg tablet 40 mg PO DAILY 30 Days Qty: 30 RF: 0 Discontinued isosorbide mononitrate 60 mg tablet extended release 24 hr 60 mg PO DAILY RF: 0 hydrochlorothiazide 12.5 mg tablet 12.5 mg PO DAILY RF: 0 Discharge Orders: Discharge Order (Routine); Ordered 09/22/19 Ordered By: Luis Szymanski/Other Patient Handouts: Heart Failure, Heart Failure Tracking Weight, Isosorbide Dinitrate Oral tablet Admission Data Admit Date/Time: 09/19/19 22:06 Attending Provider: Luis Olmos Admit Provider: Catracho Julian Primary Care Provider: Chris Reis Other Providers: Catracho Julian ; Perez Borja Other Interventions: Discharge Summary Assessment (RN) Last Done: 09/22/19 10:16 DC Date/Time DO NOT enter until pt leaves facility: 09/22/19 11:28
== END 2019-09-22 11:28 | disposition home or self-care (01) | DRG 291 ==
LOC: ED 18:21 → 2S 22:06

== ENCOUNTER 2020-05-13 15:27 | Inpatient (IN) ==
[2020-05-13 16:03] LABS: Basophils # (auto) 0.01 K/uL (0-0.2); Basophils % (auto) 0.1 %; Eosinophils # (auto) 0.08 K/uL (0-0.5); Eosinophils % (auto) 0.7 %; Hematocrit (blood only) 30.8 % (37-47); Hemoglobin 9.9 g/dL (12.0-16.0); Immature Granulocytes # (auto) 0.03 K/uL (0.00-0.02); Immature Granulocytes % (auto) 0.3 %; Lymphocytes # (auto) 0.47 K/uL (1.2-3.4); Lymphocytes % (auto) 4.3 %; Mean Corpuscular Hemoglobin 31.7 pg (25-34); Mean Corpuscular Hgb Conc 32.1 g/dL (32-36); Mean Corpuscular Volume 98.7 fL (80-100); Mean Platelet Volume 10.5 fL (7.4-10.4); Monocytes # (auto) 1.07 K/uL (0.11-0.59); Monocytes % (auto) 9.9 %; Neutrophils # (auto) 9.17 K/uL (1.4-6.5); Neutrophils % (auto) 84.7 %; Platelet Count 244 K/uL (130-400); RDW Coefficient of Variation 12.8 % (11.5-14.5); RDW Standard Deviation 46.3 fL (36.4-46.3); Red Blood Count 3.12 M/uL (4.2-5.4); White Blood Count 10.83 K/uL (4.8-10.8)
--- NOTE | 2020-05-13 16:21 | XRay Report ---
XR chest 1V portable CLINICAL HISTORY: weakness COMPARISON STUDY: Chest radiograph September 19, 2019. Chest CT June 04, 2015. FINDINGS: Lung volumes are normal. There is no pneumothorax or pleural effusion. Apparent left basila r opacity is likely due to epicardial fat pad and atelectasis. This is unchanged. Note is made of car diomegaly without evidence for pulmonary edema. There is no consolidation. IMPRESSION: No acute cardiopulmonary findings. ACT 112: Negative or not required by law. Electronically signed by: Kd Collins M.D. 05/13/2020 4:20 PM
[2020-05-13 16:35] LABS: Alanine Aminotransferase 22 U/L (12-78); Albumin Level 3.2 gm/dl (3.4-5.0); Aspartate Aminotransferase 15 U/L (15-37); BUN Creatinine Ratio 12.4 (10-20); Blood Urea Nitrogen 19 mg/dl (7-18); Calcium 9.7 mg/dl (8.5-10.1); Carbon Dioxide 28 mmol/L (21-32); Chloride 98 mmol/L (98-107); Creatinine Clr Calc Pharmacy 29.9 ml/min; Est GFR (African American) 37.1; Glucose 144 mg/dl (70-99); Potassium 4.8 mmol/L (3.5-5.1); Sodium 134 mmol/L (136-145)
[2020-05-13] MEDS ORDERED: SODIUM CHLORIDE 0.9% 500 ML IV ONE (16:42)
[2020-05-13 16:46] LABS: Albumin Globulin Ratio 0.7 (0.9-2); Alkaline Phosphatase 59 U/L (45-117); Bilirubin,Total 0.4 mg/dl (0.2-1); Creatine Kinase 58 U/L (26-192); Globulin 4.3 gm/dl (2.5-4.0); NT Pro B Type Natriuretic Pept 1946 pg/ml (0-1800); Total Protein 7.5 gm/dl (6.4-8.2); Troponin I < 0.015 ng/ml (0-0.045)
[2020-05-13 16:50] LABS: Appearance Urine Cloudy (Clear); Bacteria Urine Automated 4+ (Negative); Bilirubin Urine Negative (Negative); Blood Urine 2+ (Negative); Color Urine Yellow; Epithelial Cell Urine Auto 0-5 /lpf (0-5); Glucose Urine UA Negative (Negative); Ketones Urine Negative (Negative); Leukocyte Esterase Urine 2+ (Negative); Nitrite Urine Positive (Negative); Protein Urine 1+ (Negative); Specific Gravity Urine 1.016 (1.000-1.030); Urobilinogen Urine Negative (Negative); WBC Urine Automated >30 /hpf (0-5)
[2020-05-13] MEDS ORDERED: LEVOFLOXACIN/D5W 750 MG/150 ML BAG IV STA (16:55)
[2020-05-13] MEDS ORDERED: PIPERACILL/TAZOBAC CONSULT ACTIVE PRN (16:55)
[2020-05-13] MEDS ORDERED: PIPERACILLIN/TAZOBACTAM 4.5 GM/120 ML BAG IV ONE (16:55)
[2020-05-13 16:59] LABS: T4 Free Thyroxine 1.42 ng/dl (0.8-1.6)
--- NOTE | 2020-05-13 18:13 | History & Physical Report ---
Date of Service May 13, 2020 Assessment & Plan (1) Urinary tract infection: Ms. Neves is a 80 yo female with h/o Multiple Sclerosis, CAD (3 stents in 2009), Diastolic Heart Failure, T2DM, CKD Stage III, history of DVT, who presents to [facility] on 05/13 after a fall at her home earlier today as well as recent history of UTI. Urinary Tract Infection - h/o urinary symptoms for the last 10 days with residual dysuria, increased urinary frequency/urgency, flank pain today - UA cloudy, positive nitrites, 2+ leuko, >30WBCs, 4+ bacteria, 2+ blood, no epithelial cells - Urine cx pending - CBC WNL - Lactate 1.6 - Initially started on Levaquin/Zosyn in the ED - Will transition to Ceftriaxone 1g IV daily x7 days for complicated UTI without increased risk for Pseudomonas UTI (not coming from skilled nursing, no risk factors) - trend CBC daily Recent Fall - suspect due to orthostatic hypotension secondary to decreased PO intake and UTI - given NSS 500cc bolus in the ED - ordered additional NSS 500cc at 80cc/hr - d/c'd home Furosemide 40 mg PO daily due to suspected dehydration - encourage PO intake while hospitalized - continue to monitor volume status clinically given h/o Diastolic Heart Failure Chronic Diastolic Heart Failure - last Echo in 09/20/2019 showed EF of 55-60% and Grade II Diastolic Dysfunction - currently euvolemic on exam (no JVD, crackles on lung exam, LE edema) - no signs of pulmonary edema on CXR - BNP 1946 today (4776 on 09/19/2019) - d/c'd home Furosemide and cautious mIVFs as mentioned above Multiple Sclerosis - with associated blindness, essential tremor, cervical/lumbosacral radiculopathy - follows with Neurology on outpatient basis - continued home Fentanyl patch for associated pain while hospitalized Type 2 Diabetes Mellitus - basal insulin and SSI while hospitalized CKD, stage III - Cr 1.53, approximate baseline - trend BMP daily Stable Angina - h/o CAD with 3 stents placed in 2009 - several times a month, resolved after resting and nitro - Troponin negative in the ED - follow clinically for chest pain in the hospital - continue home Aspirin 81 mg daily - continue Isosorbide Mononitrate 120mg daily Hypertension - continue Lisinopril 2.5, HCTZ 12.5 - given recent decreased PO intake, monitor for hypovolemia on exam and BPs Interstitial Lung Disease - uses 3-3.5 L supplemental O2 via NC at home - continue supplemental O2 while hospitalized H/o DVT - continue Warfarin 1mg PO daily while hospitalized - trend PT/INR FEN/GI: Heart Healthy/DM2 diet, mIVFs NSS 80cc/hr - 500cc bag DVT Prophylaxis: Warfarin 1 mg PO daily as mentioned above Code Status: Full Code Disposition: Med/Surg (2) Essential tremor: (3) Lumbosacral radiculopathy: (4) Cervical radiculopathy: (5) Legally blind: (6) CKD (chronic kidney disease), stage III: (7) Chronic diastolic CHF (congestive heart failure): (8) Multiple sclerosis: (9) History of DVT (deep vein thrombosis): (10) DM type 2 (diabetes mellitus, type 2): (11) Hypertension: (12) Interstitial lung disease: (13) CAD (coronary artery disease): (14) History of recent fall: History of Present Illness Chief Complaint: weakness, fall, recent UTI Primary Care Provider: Chris Reis Luisana Muhammad is a 80 yo female with h/o Multiple Sclerosis, CAD (3 stents in 2009), Diastolic Heart Failure, T2DM, CKD Stage III, history of DVT, who presents to [facility] after a fall at her home earlier today as well as recent history of UTI. Patient reports that she was standing up from a chair and walking to the kitchen table when she began to feel dizzy, lightheaded and nauseous. She subsequently lost her balance and fell on her backside; she was holding her walker to lighten the fall and denies associated LOC, head trauma, or hip/arm/leg pain after the fall. Reports that her symptoms quickly resolved after falling to the ground. Her was not able to lift her up, so they decided to call 911 and EMS transported the patient to the ED. Additionally, Ms. Muhammad reports urinary symptoms of dysuria, increased urinary frequency/urgency, flank pain and 100-101F fevers approximately 10 days ago; visited her PCP (Dr. Reis) who diagnosed her with UTI and gave her 5-day course of unknown medication (although upon searching the chart for recently filled medications, the patient filled a 5-day prescription of Amoxicillin on 05/09). The patient reports that she finished her antibiotics several days ago but her urinary symptoms only mildly improved. Denies further fevers since finishing antibiotics but reports that she has had decreased PO intake over the last several days due to feeling more fatigued. Patient reports occasional moderate substernal chest pain that radiates to her left arm, but says this has happened several times per month for ~1 year and rest/nitro completes resolves symptoms. Also reports using oxygen at home (3- 3.5L NC) due to chronic lung disease - denies past/present tobacco smoking. Chronically blind with bilateral lumbar radiculopathy, back/leg pain and facial/bilateral arm tremor secondary to MS. Occasional easy bruising secondary to warfarin use. Lives in [place], [place] with her , John, and two great-grandchildren (ages 20 and 17). Patient and her have been primary caregivers for the children. She does well with all ADLs and some iADLS but her and great- grandchildren help her with bills, transportation, shopping, etc. Denies alcohol/drug use. Allergies Allergy/AdvReac Type Severity Reaction Status Date / Time allopurinol Allergy Unknown COUGH Verified 05/13/20 18:35 blue dye Allergy Unknown BRILLIANT Verified 05/13/20 18:35 BLUE FCF dimethyl fumarate Allergy Unknown UNKNOWN Verified 05/13/20 18:35 Home Medications Home Medications Medication Instructions Recorded Confirmed Type Oxygen Home #1 ea 05/25/19 02/27/20 History aspirin 81 mg tablet,delayed 81 mg PO DAILY tab 05/25/19 05/13/20 History release biotin 5 mg tablet 5 tab PO DAILY tab 05/25/19 05/13/20 History fentanyl 25 mcg/hr transdermal 1 patch TD .COMPLEX ea 05/25/19 05/13/20 History patch pioglitazone 15 mg tablet 15 mg PO DAILY tab 05/25/19 05/13/20 History warfarin 1 mg tablet 0 mg PO DAILY tab 05/25/19 05/13/20 History buspirone 10 mg tablet 10 mg PO BID PRN 09/03/19 05/13/20 History carbamazepine 200 mg tablet 200 mg PO DAILY tab 09/03/19 05/13/20 History dulaglutide 1.5 mg/0.5 mL 0 mg SQ WEEKLY ml 09/03/19 05/13/20 History subcutaneous pen injector gabapentin 800 mg tablet 800 mg PO TID #270 tab 09/03/19 05/13/20 Rx glipizide 10 mg tablet 10 mg PO BID 09/03/19 05/13/20 History levothyroxine 100 mcg tablet 100 mcg PO DAILY 09/03/19 05/13/20 History lorazepam 0.5 mg tablet 0.5 mg PO DAILY PRN 09/03/19 05/13/20 History metformin 500 mg tablet 500 mg PO BID 09/03/19 05/13/20 History nitroglycerin 0.4 mg sublingual 0.4 mg SL Q5M PRN 09/03/19 05/13/20 History tablet acetaminophen [Tylenol] 650 mg PO Q6 PRN 09/19/19 05/13/20 History ergocalciferol (vitamin D2) 1,250 mcg PO WK 09/19/19 05/13/20 History [Vitamin D2] folic acid 0.4 mg PO DAILY 09/19/19 05/13/20 History promethazine 12.5 mg PO DAILY 09/19/19 05/13/20 History propranolol 80 mg PO BID 09/19/19 05/13/20 History senna 8.6 mg PO BID PRN 09/19/19 05/13/20 History amoxicillin 500 mg PO BID 05/13/20 05/13/20 History furosemide 40 mg PO DAILY PRN 05/13/20 05/13/20 History hydrochlorothiazide 12.5 mg PO BID 05/13/20 05/13/20 History isosorbide mononitrate 120 mg PO DAILY 05/13/20 05/13/20 History linaclotide [Linzess] 0 mcg PO DAILY 05/13/20 05/13/20 History lisinopril 2.5 mg PO DAILY 05/13/20 05/13/20 History ondansetron HCl 4 mg PO DAILY 05/13/20 05/13/20 History rosuvastatin 5 mg PO DAILY 05/13/20 05/13/20 History Past Med/Surg History Medical History CAD (coronary artery disease) July 2009 -NSTEMI 2009-2 KYLER to circumflex obtuse marginal, 1 KYLER to RCA Carotid artery stenosis Chronic diastolic CHF (congestive heart failure) Chronic respiratory failure with hypoxia CKD (chronic kidney disease), stage III DM type 2 (diabetes mellitus, type 2) Dyslipidemia History of DVT (deep vein thrombosis) Hypertension Hypothyroidism Interstitial lung disease Legally blind Multiple sclerosis Seizure disorder Surgical History History of hysterectomy History of tonsillectomy Hx of cholecystectomy Family History Mother Heart disease Social History Smoking Status: Never smoker Hx Alcohol Use: No Hx Substance Use: No Preferred Language: Serbian Communication Ability: Effective Communication Ability Comment: legally blind Lease Operator Required: No Beliefs That Will Affect Care: None Current Living Situation: Spouse and Family Other Information That Helps Us Care for You: No Feels Safe at Home: Yes Safety Concerns: Feels Safe At This Time Review of Systems Constitutional: + body aches; no fever, no chills, no weight loss and no weight gain Eyes: as per Subjective / HPI Ear, Nose, Mouth, Throat: no hearing loss Respiratory: + dyspnea and + dyspnea on exertion; no cough and no wheezing Cardiovascular: + chest pain with activity and + lightheadedness; no palpitations and no edema Gastrointestinal: + abdominal pain; no nausea and no vomiting Genitourinary: + dysuria, + difficulty urinating, + urinary frequency, + urinary urgency and + flank pain Musculoskeletal: + back pain, + radicular pain and + joint pain Neurologic: as per Subjective / HPI Hematologic / Lymphatic: + easy bruising Physical Exam Physical Exam: generalized moderate tenderness reported on palpation of entire abdomen, back and all four extremities - nonspecific Constitutional: WD/WN, vitals as above Eyes: blind in both eyes, reports seeing dim shadows ENMT: Mouth: no oropharynx abnormality Neck: trachea midline, no thyromegaly Respiratory: normal respiratory effort, lungs clear to auscultation Cardiovascular: RRR, no murmur, no edema Gastrointestinal (Abdomen): Inspection/Auscultation: abdomen normal to inspection and normal bowel sounds; abdomen not distended Skin: no rashes, warm and dry small hematoma on lower left abdomen Psychiatric: A+Ox3, euthymic affect Results & Data Results & Data ([facility]) Vital Signs (Past 12 Hours) Vital Signs Temp Pulse Resp BP Pulse Ox 05/13/20 17:41 80 16 123/64 99 05/13/20 17:31 79 13 123/66 98 05/13/20 17:30 81 18 100 05/13/20 17:00 83 20 120/52 L 99 05/13/20 16:30 84 24 136/51 L 100 05/13/20 16:00 80 20 121/75 99 05/13/20 15:46 80 24 145/78 H 97 05/13/20 15:43 84 20 99 05/13/20 15:34 82 20 179/79 H 99 05/13/20 15:27 37.7 C H 81 20 179/79 H 99 Urine Analysis / Culture Results Urinalysis: Urine Appearance Cloudy (Clear) A 05/13/20 Urine Color Yellow 05/13/20 Urine pH 7.0 (4.5-7.5) 05/13/20 Urine Protein 1+ (Negative) H 05/13/20 Ur Specific [place] 1.016 (1.000-1.030) 05/13/20 Ur Leukocyte Esterase 2+ (Negative) H 05/13/20 Urine Ketones Negative (Negative) 05/13/20 Urine Glucose (UA) Negative (Negative) 05/13/20 Urine Culture: Micro Urine Specimen 05/13/20 Code Status & VTE Plan Code Status Full Code VTE Prophylaxis Plan VTE Prophylaxis will be ordered: Yes Supervising Physician Co-Signing Physician Notes I supervised Lico Smith MD on this patient's care. I examined the patient today independently of him. I discussed the plan of care with him with the plan being as written in his note except for any following changes/exceptions: None. 80yo F w/ hx of MS who presents with fall and UTI symptoms x 10 days. Was treated with oral antibiotics (which per pharmacy external data appears to have been amoxicillin) about 10 days ago for 5 days. The symptoms improved, but did not fully resolve and have returned. Today she suffered a presyncopal event in which she felt lightheaded and dizzy and had to lie down, but did not lose consciousness or injure herself. At present, she is still tired and weak, but otherwise stable. Was cultured in the ED. Will treat with ceftriaxone IV. Presyncopal sensations may be slight hypovolemia, and she will be given gentle IV fluids as she appears mildly hypovolemic (keeping in mind her HF). Resident Activity Tracking Resident Involvement: Resident Care Provided Care Provided: Adult Hospital Medicine
--- NOTE | 2020-05-13 18:22 | Electrocardiogram Report ---
Test Reason : Blood Pressure : / mmHG Vent. Rate : 084 BPM Atrial Rate : 084 BPM P-R Int : 206 ms QRS Dur : 084 ms QT Int : 356 ms P-R-T Axes : 075 019 060 degrees QTc Int : 420 ms Normal sinus rhythm with sinus arrhythmia Normal ECG When compared with ECG of 20-SEP-2019 06:31, Nonspecific T wave abnormality no longer evident in Inferior leads T wave inversion no longer evident in Anterolateral leads Confirmed by Ashwin Humphries ([id number]) on 05/13/2020 6:21:53 PM Referred By: Confirmed By:Franco Humphries
[2020-05-13] MEDS ORDERED: GLUCAGON FOR INJ 1 MG VIAL SQ PRN (20:27)
[2020-05-13] MEDS ORDERED: CARBOHYDRATES FOR HYPOGLYCEMIA PO PRN (20:27)
[2020-05-13] MEDS ORDERED: DEXTROSE 50% 50 ML SYRINGE IV PRN (20:27)
[2020-05-13] MEDS ORDERED: GLUCOSE 10 TABS/TUBE PO PRN (20:27)
[2020-05-13] MEDS ORDERED: GLUCOSE 40% GEL 15 GM TUBE PO PRN (20:27)
[2020-05-13] MEDS ORDERED: SODIUM CHLORIDE 0.9% 500 ML IV SCH (20:30)
[2020-05-13] MEDS: GABAPENTIN 800 MG TAB PO SCH (21:06)
[2020-05-13] MEDS: hydroCHLOROthiazide 25 MG TAB PO SCH (21:06)
[2020-05-13] MEDS: CHECK FENTANYL PATCH PLACEMENT SCH (21:12)
[2020-05-13 21:26] LABS: Prothrombin Time 66.7 Seconds (9.0-12.0)
--- NOTE | 2020-05-13 21:39 | Billing Data ---
Date of Service May 13, 2020 Coding Level of Care Code 47715 Initial Inpt Care Lvl 3
[2020-05-13] MEDS: INSULIN ASPART 100 UNITS/ML 3 ML PEN SC SCH (21:44)
[2020-05-13] MEDS ORDERED: NITROGLYCERIN SL 0.4 MG/TAB TAB ONE (23:25)
[2020-05-14 05:39] LABS: Hematocrit (blood only) 27.4 % (37-47); Hemoglobin 9.1 g/dL (12.0-16.0); Mean Corpuscular Hemoglobin 32.6 pg (25-34); Mean Corpuscular Hgb Conc 33.2 g/dL (32-36); Mean Corpuscular Volume 98.2 fL (80-100); Mean Platelet Volume 10.2 fL (7.4-10.4); Platelet Count 189 K/uL (130-400); RDW Coefficient of Variation 12.8 % (11.5-14.5); RDW Standard Deviation 46.3 fL (36.4-46.3); Red Blood Count 2.79 M/uL (4.2-5.4); White Blood Count 7.68 K/uL (4.8-10.8)
[2020-05-14 06:00] LABS: Prothrombin Time 60.6 Seconds (9.0-12.0)
[2020-05-14] MEDS: LEVOTHYROXINE SODIUM 100 MCG TABLET PO SCH (06:02)
[2020-05-14 06:04] LABS: BUN Creatinine Ratio 12.9 (10-20); Calcium 8.6 mg/dl (8.5-10.1); Creatinine Clr Calc Pharmacy 30.8 ml/min; Est GFR (African American) 36.5; Est GFR (Non-African American) 31.5; Magnesium 1.1 mg/dl (1.8-2.4); Potassium 4.1 mmol/L (3.5-5.1)
[2020-05-14 06:11] LABS: Estimated Average Glucose 148 mg/dl; Hemoglobin A1C 6.8 % (4.5-5.6)
[2020-05-14 06:21] LABS: INR 6.4 (0.9-1.1)
[2020-05-14] MEDS ORDERED: cefTRIAXone SODIUM 2,000 MG in DEXTROSE 5% 50 ML IV SCH (07:00)
[2020-05-14] MEDS: ACETAMINOPHEN 325 MG TAB PO PRN (07:49)
[2020-05-14] MEDS: ROSUVASTATIN CALCIUM 5 MG TAB PO SCH (07:49)
[2020-05-14] MEDS: FOLIC ACID 400 MCG TAB PO SCH (07:50)
[2020-05-14] MEDS: ISOSORBIDE MONO EXTENDED REL 60 MG TABCR PO SCH (07:50)
[2020-05-14] MEDS: hydroCHLOROthiazide 25 MG TAB PO SCH (07:50)
[2020-05-14] MEDS: ASPIRIN 81 MG ECTAB PO SCH (07:50)
[2020-05-14] MEDS: carBAMazepine 200 MG TABLET PO SCH (07:50)
[2020-05-14] MEDS: GABAPENTIN 800 MG TAB PO SCH ×2 (07:51→14:36)
[2020-05-14] MEDS: CHECK FENTANYL PATCH PLACEMENT SCH ×2 (07:55→16:39)
[2020-05-14] MEDS: INSULIN ASPART 100 UNITS/ML 3 ML PEN SC SCH ×3 (08:56→18:23)
[2020-05-14] MEDS: MAGNESIUM SULFATE / D5W 1 GM/100 ML BAG IV SCH ×4 (09:54→16:38)
--- NOTE | 2020-05-14 09:58 | CT Scan Report ---
CT SCAN OF THE ABDOMEN AND PELVIS WITHOUT IV CONTRAST CLINICAL HISTORY: Fever. Urinary tract infection. COMPARISON STUDY: Abdominal CT dated 07/20/2017. TECHNIQUE: CT scan of the abdomen and pelvis is performed from the lung bases to the proximal femora. Images are reviewed in the axial, sagittal, and coronal planes. IV contrast was not administered for this examination. A dose lowering technique was utilized adhering to the principles of ALARA. CT DOSE: 843.33 mGy.cm FINDINGS: Lung bases: The heart is normal in size and without pericardial effusion. The coronary arteries are d ensely calcified. There is a small hiatal hernia. The lung bases are clear. Liver: The unenhanced liver is normal in size, contour, and attenuation. There is no intrahepatic page iary ductal dilatation. Gallbladder: Surgically absent noting clips in the gallbladder fossa. Spleen: Normal in size and attenuation. There are scattered calcified splenic granulomas. Pancreas: The unenhanced pancreas is moderately atrophic and grossly unremarkable. Adrenal glands: Unremarkable. Kidneys: The unenhanced kidneys demonstrate cortical atrophy. There is a 5 mm calculus in the right p roximal ureter just below the ureteropelvic junction seen on axial image #179. There is no associated hydronephrosis. An additional 4 mm nonobstructing calculus is seen in the interpolar right kidney. A punctate nonobstructing calculus is seen in the left lower pole. There is no evidence of contour def orming renal mass lesion. Abdominal vasculature: The abdominal aorta is normal in course and caliber noting advanced atheroscle rotic calcification. Bowel: There is moderate colonic diverticulosis without CT evidence of acute diverticulitis. No bowel obstruction is seen. Fecal retention is noted throughout the colon. The appendix is not identified and reported surgically absent. Peritoneum: There is no intraperitoneal free air or abdominal ascites. A small fat-containing ventral hernia is seen on image #154. Lymphadenopathy: None. Pelvic viscera: The bladder wall is mildly thickened is pericystic inflammation. The uterus is surgic ally absent. No adnexal lesion is seen. Skeletal structures: The skeletal structures are osteopenic. There is moderate to advanced lumbosacra l spondylosis. No lytic or blastic lesions are seen. IMPRESSION: 1. Findings suggest cystitis. Correlation with clinical findings and urinalysis will be required. 2. There is a 5 mm calculus in the right proximal ureter located just below the ureteropelvic junctio n. There is no associated hydronephrosis. 3. Additional small nonobstructing calculi are present in both kidneys. 4. Moderate colonic diverticulosis without CT evidence of acute diverticulitis. 5. Advanced coronary artery calcification. 6. Additional findings as above. ACT 112: Negative or not required by law. Electronically signed by: Marty Hester M.D. 05/14/2020 9:57 AM
[2020-05-14] MEDS ORDERED: PHYTONADIONE 2.5 MG in SODIUM CHLORIDE 0.9% 50 ML IV ONE (12:05)
--- NOTE | 2020-05-14 12:41 | Hospitalist Progress Note ---
Date of Service May 14, 2020 Assessment & Plan (1) Septicemia: 2nd to UTI in setting of right-sided kidney stone. blood cultures + for GNR. change to rocephin to cefepime for broader GNR coverage. repeat blood cultures in am. appreciate urology assistance. (2) Kidney stone on right side: likely cause of refractory UTI. NPO now. spoke with Dr Salvador from [facility] who plans to place right ureteral stent today. cont IVF, pain meds, etc. (3) Urinary tract infection: complicated by obstructing kidney stone on right. see above in septicemia. (4) Chronic diastolic CHF (congestive heart failure): compensated hold lasix in setting of receiving IV fluids (5) Essential tremor: noted (6) Lumbosacral radiculopathy: (7) Cervical radiculopathy: (8) Legally blind: (9) CKD (chronic kidney disease), stage III: baseline Cr about 1.3 to 1.5 bmp am (10) Multiple sclerosis: noted needs PT/OT (11) History of DVT (deep vein thrombosis): on coumadin INR supratherapeutic gave vit K 2.5mg IV x 1 with improved INR to <3 late today repeat INR am (12) DM type 2 (diabetes mellitus, type 2): novolog SSI BSGs ac/hs (13) Hypertension: cont home meds (14) Interstitial lung disease: likely cause of ILD/chronic hypoxic resp failure (15) CAD (coronary artery disease): no evidence of ACS cont normal cardiac meds (16) History of recent fall: (17) Chronic respiratory failure with hypoxia: cont NC O2 Admission and Anticipated Discharge Date Admission Date: May 13, 2020 Subjective patient w/o abdominal pain but has back pain - much of which is chronic had fevers/chills all night and this am appetite ok - did eat breakfast no dysuria is on chronic NC O2 - for several years was recently on antibiotics for UTI Review of Systems Constitutional: + fever, + chills and + fatigue Respiratory: no cough and no dyspnea Cardiovascular: no chest pain Gastrointestinal: no vomiting Physical Exam Constitutional: well developed and well nourished; no acute distress and no al tered mental status ENMT: Mouth: + dry oral mucous membranes Respiratory: normal respiratory effort, lungs clear to auscultation Cardiovascular: Rate/Rhythm: regular rate and regular rhythm Heart Sounds: normal S1 and normal S2 Vessels: posterior tibial pulses present and dorsalis pedis pulses present; no JVD Extremities: no edema Gastrointestinal (Abdomen): Inspection/Auscultation: normal bowel sounds; abdomen not distended Percussion/Palpation: + abdomen tender (Right side of abdomen ) and abdomen soft; no hepatosplenomegaly Psychiatric: A+Ox3, euthymic affect Results & Data Results & Data ([facility]) Vital Signs (Past 12 Hours) Vital Signs Temp Pulse Resp BP Pulse Ox 05/14/20 07:27 38.2 C H 05/14/20 07:25 38.6 C H 88 18 154/76 H 92 Laboratory Results Laboratory Results - last 24 hr 05/14/20 05/14/20 05/14/20 08:44 12:10 16:17 WBC RBC Hgb Hct MCV MCH MCHC RDW Std Deviation RDW Coeff of Gillian Plt Count MPV Immature Gran % (Auto) Neut % (Auto) Lymph % (Auto) Sanders % (Auto) Eos % (Auto) Baso % (Auto) Neut # (Auto) Lymph # (Auto) Sanders # (Auto) Eos # (Auto) Baso # (Auto) Immature Gran # (Auto) PT 27.3 H INR 2.7 H APTT 60.4 H* PTT Ratio 2.2 Sodium Potassium Chloride Carbon Dioxide Anion Gap BUN Creatinine Est Cr Clr Drug Dosing Est GFR ( Amer) Est GFR (Non-Af Amer) BUN/Creatinine Ratio Glucose POC Glucose 165 H 235 H Calcium Magnesium COVID-19 Eval Order SARS-CoV-2, RNA, NAAT 05/14/20 05/14/20 05/14/20 17:11 Unknown Unknown WBC RBC Hgb Hct MCV MCH MCHC RDW Std Deviation RDW Coeff of Gillian Plt Count MPV Immature Gran % (Auto) Neut % (Auto) Lymph % (Auto) Sanders % (Auto) Eos % (Auto) Baso % (Auto) Neut # (Auto) Lymph # (Auto) Sanders # (Auto) Eos # (Auto) Baso # (Auto) Immature Gran # (Auto) PT INR APTT PTT Ratio Sodium Potassium Chloride Carbon Dioxide Anion Gap BUN Creatinine Est Cr Clr Drug Dosing Est GFR ( Amer) Est GFR (Non-Af Amer) BUN/Creatinine Ratio Glucose POC Glucose 136 H Calcium Magnesium COVID-19 Eval [facility] SARS-CoV-2, RNA, NAAT NEGATIVE 05/15/20 05/15/20 05/15/20 00:07 05:50 05:50 WBC 6.74 RBC 3.11 L Hgb 9.9 L Hct 30.2 L MCV 97.1 MCH 31.8 MCHC 32.8 RDW Std Deviation 45.9 RDW Coeff of Gillian 12.9 Plt Count 204 MPV 10.4 Immature Gran % (Auto) 0.3 Neut % (Auto) 74.5 Lymph % (Auto) 9.3 Sanders % (Auto) 13.9 Eos % (Auto) 1.9 Baso % (Auto) 0.1 Neut # (Auto) 5.01 Lymph # (Auto) 0.63 L Sanders # (Auto) 0.94 H Eos # (Auto) 0.13 Baso # (Auto) 0.01 Immature Gran # (Auto) 0.02 PT INR APTT PTT Ratio Sodium Pending Potassium Pending Chloride Pending Carbon Dioxide Pending Anion Gap Pending BUN Pending Creatinine Pending Est Cr Clr Drug Dosing Pending Est GFR ( Amer) Pending Est GFR (Non-Af Amer) Pending BUN/Creatinine Ratio Pending Glucose Pending POC Glucose 211 H Calcium Pending Magnesium Pending COVID-19 Eval Order SARS-CoV-2, RNA, NAAT 05/15/20 05:50 WBC RBC Hgb Hct MCV MCH MCHC RDW Std Deviation RDW Coeff of Gillian Plt Count MPV Immature Gran % (Auto) Neut % (Auto) Lymph % (Auto) Sanders % (Auto) Eos % (Auto) Baso % (Auto) Neut # (Auto) Lymph # (Auto) Sanders # (Auto) Eos # (Auto) Baso # (Auto) Immature Gran # (Auto) PT 13.5 H INR 1.3 H APTT PTT Ratio Sodium Potassium Chloride Carbon Dioxide Anion Gap BUN Creatinine Est Cr Clr Drug Dosing Est GFR ( Amer) Est GFR (Non-Af Amer) BUN/Creatinine Ratio Glucose POC Glucose Calcium Magnesium COVID-19 Eval Order SARS-CoV-2, RNA, NAAT Diagnostic Findings CT abd/pelvis - 5mm right-sided kidney stone near UPJ PG Care Time/CCT Total # of Minutes Spent Total Time Spent with Patient: Total time spent is greater than 50% in coordination of care (as documented) at patient's floor/unit and/or counseling patient: Coding Level of Care Code 54761 Subseq Hosp Care Lvl 3 Diagnoses Septicemia A41.9 Kidney stone on right side N20.0 Urinary tract infection N39.0 Chronic diastolic CHF (congestive heart failure) I50.32 Essential tremor G25.0 Lumbosacral radiculopathy M54.17 Cervical radiculopathy M54.12 Legally blind H54.8 CKD (chronic kidney disease), stage III N18.3 Multiple sclerosis G35 History of DVT (deep vein thrombosis) Z86.718 DM type 2 (diabetes mellitus, type 2) E11.9 Hypertension I10 Interstitial lung disease J84.9 CAD (coronary artery disease) I25.10 History of recent fall Z91.81 Chronic respiratory failure with hypoxia J96.11
[2020-05-14] MEDS ORDERED: HYDROmorphone INJ 0.5 MG/0.5 ML SYR IV PRN (16:39)
[2020-05-14] MEDS: CEFEPIME 2,000 MG in SYRINGE 7.5 ML IV SCH (17:05)
[2020-05-14 17:07] LABS: INR 2.7 (0.9-1.1); Partial Thromboplastin Ratio 2.2; Prothrombin Time 27.3 Seconds (9.0-12.0)
[2020-05-14 17:15] LABS: Partial Thromboplastin Time 60.4 Seconds (21.0-31.0)
--- NOTE | 2020-05-14 18:32 | Urology Consultation ---
Date of Consultation 80-year-old female with a history of 10 days of having symptoms of urinary tract infection who yesterday fell and came to the hospital and was admitted. Because she was still having the symptoms and her urine grew out gram-negative rods a CAT scan was performed this morning and she was found to have a 5 mm nonobstructing right proximal stone a punctate left nonobstructing stone and a second nonobstructing right renal stone. The patient has multiple medical problems including COPD congestive heart failure multiple sclerosis history of DVT history of respiratory failure coronary artery disease type 2 diabetes. I was informed about the patient at 1240 and she had just finished lunch. She was not having fever since earlier in the morning and she was feeling much better after having antibiotics. Because her white blood cell count was normal and the stone was nonobstructing and she was feeling well I elected to wait until they gave her vitamin K to see if her PT improved as it was elevated at 6.4. I was concerned that placing a stent could cause bleeding that could cause obstruction and worsen her problem. I asked them to do a stat PT PTT at 4 PM and came to see her after work at 5 PM. The pro time came back down to 2.7 and when I saw the patient she seemed confused. I asked for set of vital signs and the patient had a temp of 39 4. She was having some emesis. And said that her abdomen was bothering her. It was difficult to pin down exactly where she was having pain but she did say she was having left hip pain and right upper quadrant pain. Her O2 sats are okay at 94 and her blood pressure was elevated at 180 over 90s pulse was 100. Because the patient was confused although responsive and alert I asked her for permission to place a right ureteral stent. I instructed the nurse to give a rectal suppository of Tylenol I am in the OR waiting for her to be brought down to place the stent instructed the that the main risk was inability to place a stent and that the patient could be sick even after placing a stent and that it would be difficult to remove the stone given her current condition. May 14, 2020 Assessment & Plan (1) Right ureteral stone: Plan to place right ureteral stent under sedation (2) Sepsis: History of Present Illness Attending Physician: Andrea Angela Allergies Allergy/AdvReac Type Severity Reaction Status Date / Time allopurinol Allergy Unknown COUGH Verified 05/13/20 18:35 blue dye Allergy Unknown BRILLIANT Verified 05/13/20 18:35 BLUE FCF dimethyl fumarate Allergy Unknown UNKNOWN Verified 05/13/20 18:35 Home Medications Home Medications Medication Instructions Recorded Confirmed Type Oxygen Home #1 ea 05/25/19 02/27/20 History aspirin 81 mg tablet,delayed 81 mg PO DAILY tab 05/25/19 05/13/20 History release biotin 5 mg tablet 5 tab PO DAILY tab 05/25/19 05/13/20 History fentanyl 25 mcg/hr transdermal 1 patch TD .COMPLEX ea 05/25/19 05/13/20 History patch pioglitazone 15 mg tablet 15 mg PO DAILY tab 05/25/19 05/13/20 History warfarin 1 mg tablet 0 mg PO DAILY tab 05/25/19 05/13/20 History buspirone 10 mg tablet 10 mg PO BID PRN 09/03/19 05/13/20 History carbamazepine 200 mg tablet 200 mg PO DAILY tab 09/03/19 05/13/20 History dulaglutide 1.5 mg/0.5 mL 0 mg SQ WEEKLY ml 09/03/19 05/13/20 History subcutaneous pen injector gabapentin 800 mg tablet 800 mg PO TID #270 tab 09/03/19 05/13/20 Rx glipizide 10 mg tablet 10 mg PO BID 09/03/19 05/13/20 History levothyroxine 100 mcg tablet 100 mcg PO DAILY 09/03/19 05/13/20 History lorazepam 0.5 mg tablet 0.5 mg PO DAILY PRN 09/03/19 05/13/20 History metformin 500 mg tablet 500 mg PO BID 09/03/19 05/13/20 History nitroglycerin 0.4 mg sublingual 0.4 mg SL Q5M PRN 09/03/19 05/13/20 History tablet acetaminophen [Tylenol] 650 mg PO Q6 PRN 09/19/19 05/13/20 History ergocalciferol (vitamin D2) 1,250 mcg PO WK 09/19/19 05/13/20 History [Vitamin D2] folic acid 0.4 mg PO DAILY 09/19/19 05/13/20 History promethazine 12.5 mg PO DAILY 09/19/19 05/13/20 History propranolol 80 mg PO BID 09/19/19 05/13/20 History senna 8.6 mg PO BID PRN 09/19/19 05/13/20 History amoxicillin 500 mg PO BID 05/13/20 05/13/20 History furosemide 40 mg PO DAILY PRN 05/13/20 05/13/20 History hydrochlorothiazide 12.5 mg PO BID 05/13/20 05/13/20 History isosorbide mononitrate 120 mg PO DAILY 05/13/20 05/13/20 History linaclotide [Linzess] 0 mcg PO DAILY 05/13/20 05/13/20 History lisinopril 2.5 mg PO DAILY 05/13/20 05/13/20 History ondansetron HCl 4 mg PO DAILY 05/13/20 05/13/20 History rosuvastatin 5 mg PO DAILY 05/13/20 05/13/20 History Patient History Medical History CAD (coronary artery disease) July 2009 -NSTEMI 2009-2 KYLER to circumflex obtuse marginal, 1 KYLER to RCA Carotid artery stenosis Chronic diastolic CHF (congestive heart failure) Chronic respiratory failure with hypoxia CKD (chronic kidney disease), stage III DM type 2 (diabetes mellitus, type 2) Dyslipidemia History of DVT (deep vein thrombosis) Hypertension Hypothyroidism Interstitial lung disease Legally blind Multiple sclerosis Seizure disorder Surgical History History of hysterectomy History of tonsillectomy Hx of cholecystectomy Family History Mother Heart disease Social History Smoking Status: Never smoker Hx Alcohol Use: No Hx Substance Use: No Preferred Language: French Communication Ability: Effective Group Practice Pediatrician Required: No Beliefs That Will Affect Care: None Current Living Situation: Spouse and Family Feels Safe at Home: Yes Review of Systems Constitutional: + body aches; no fever, no chills, no weight loss and no weight gain Eyes: as per Subjective / HPI Ear, Nose, Mouth, Throat: no hearing loss Respiratory: + dyspnea and + dyspnea on exertion; no cough and no wheezing Cardiovascular: + chest pain with activity and + lightheadedness; no palpitations and no edema Gastrointestinal: + abdominal pain; no nausea and no vomiting Genitourinary: + dysuria, + difficulty urinating, + urinary frequency, + urinary urgency and + flank pain Musculoskeletal: + back pain, + radicular pain and + joint pain Neurologic: as per Subjective / HPI Hematologic / Lymphatic: + easy bruising Physical Exam Physical Exam: Ill-appearing female with emesis Constitutional: + ill appearing Eyes: PERRL, conjunctivae normal, anicteric sclerae ENMT: external ear and nose normal, oropharynx normal Respiratory: + respiratory distress Cardiovascular: Rate/Rhythm: + tachycardic Gastrointestinal (Abdomen): Percussion/Palpation: + abdomen tender and abdomen soft Musculoskeletal: Extremities: + limited ROM of lower extremity Skin: no rashes, warm and dry Neurologic: patellar DTR's 2+ bilat, sensation intact Psychiatric: Orientation: cooperative Not oriented to place Lymphatic: no cervical or axillary lymphadenopathy Results & Data ([facility]) Vital Signs (Past 12 Hours) Vital Signs Temp Pulse Resp BP Pulse Ox 05/14/20 17:56 39.4 C H 101 H 24 184/78 H 96 05/14/20 15:32 36.8 C 74 16 177/76 H 100 05/14/20 13:10 36.9 C 68 16 147/70 H 100 05/14/20 12:45 36.8 C 68 16 126/74 98 05/14/20 07:27 38.2 C H 05/14/20 07:25 38.6 C H 88 18 154/76 H 92 PG Care Time/CCT Total # of Minutes Spent Total Time Spent with Patient: Total time spent is greater than 50% in coordination of care (as documented) at patient's floor/unit and/or counseling patient: Coding Level of Care Code 47158 Initial Inpt Care Lvl 3 Diagnoses Right ureteral stone N20.1 Sepsis A41.9 Sepsis type: sepsis due to unspecified organism (1) Sepsis Sepsis type: sepsis due to unspecified organism
--- NOTE | 2020-05-14 19:15 | Electrocardiogram Report ---
Test Reason : Blood Pressure : / mmHG Vent. Rate : 082 BPM Atrial Rate : 082 BPM P-R Int : 202 ms QRS Dur : 088 ms QT Int : 380 ms P-R-T Axes : 066 006 054 degrees QTc Int : 443 ms Normal sinus rhythm with sinus arrhythmia Normal ECG When compared with ECG of 13-MAY-2020 15:33, No significant change was found Confirmed by Ashwin Humphries ([id number]) on 05/14/2020 7:15:00 PM Referred By: REFERRED SELF Confirmed By:Franco Humphries
[2020-05-14] MEDS ORDERED: ACETAMINOPHEN 650 MG SUPP PR STA (19:37)
[2020-05-14] MEDS ORDERED: fentaNYL citrate 100 MCG/2 ML VIAL IV PRN (21:20)
[2020-05-14] MEDS ORDERED: ATROPINE SULFATE 0.1 MG/ML 10ML SYR IV PRN (21:20)
[2020-05-14] MEDS ORDERED: ePHEDrine sulfate 50 MG/ML AMP IV PRN (21:20)
[2020-05-14] MEDS ORDERED: ONDANSETRON INJ 2 MG/ML 2 ML VIAL IV PRN (21:20)
--- NOTE | 2020-05-14 21:20 | Anesthesiology Consultation ---
Date of Service May 14, 2020 Assessment & Plan (1) Encounter for pre-operative examination: Chart Review Chart Review: Acceptable Risk for Surgery and Patient NOT seen in Pre Admission Testing Consults Requested none ASA [id number] Proposed Anesthesia Anesthesia Type: MAC Risk / Benefits Reviewed With: PT / POA / Parent / Guardian, Accepts Plan and I nformed Consent Obtained History Surgery Operation Date: 05/14/20 19:30 Proposed Procedures p Cystoscopy - Nirmal Salvador MD s Right Ureteral Stent Insertion(Right) - Nirmal Salvador MD Height/Weight Height: 5 ft 3 in Weight: 87.4 kg Allergies Allergy/AdvReac Type Severity Reaction Status Date / Time allopurinol Allergy Unknown COUGH Verified 05/13/20 18:35 blue dye Allergy Unknown BRILLIANT Verified 05/13/20 18:35 BLUE FCF dimethyl fumarate Allergy Unknown UNKNOWN Verified 05/13/20 18:35 Medications Home Medications Medication Instructions Recorded Confirmed Last Taken Oxygen Home #1 ea 05/25/19 02/27/20 Unknown aspirin 81 mg tablet,delayed 81 mg PO DAILY tab 05/25/19 05/13/20 Unknown release biotin 5 mg tablet 5 tab PO DAILY tab 05/25/19 05/13/20 Unknown fentanyl 25 mcg/hr transdermal 1 patch TD .COMPLEX ea 05/25/19 05/13/20 05/12/20 patch pioglitazone 15 mg tablet 15 mg PO DAILY tab 05/25/19 05/13/20 Unknown warfarin 1 mg tablet 0 mg PO DAILY tab 05/25/19 05/13/20 Unknown buspirone 10 mg tablet 10 mg PO BID PRN 09/03/19 05/13/20 Unknown carbamazepine 200 mg tablet 200 mg PO DAILY tab 09/03/19 05/13/20 Unknown dulaglutide 1.5 mg/0.5 mL 0 mg SQ WEEKLY ml 09/03/19 05/13/20 Unknown subcutaneous pen injector gabapentin 800 mg tablet 800 mg PO TID #270 tab 09/03/19 05/13/20 Unknown glipizide 10 mg tablet 10 mg PO BID 09/03/19 05/13/20 Unknown levothyroxine 100 mcg tablet 100 mcg PO DAILY 09/03/19 05/13/20 Unknown lorazepam 0.5 mg tablet 0.5 mg PO DAILY PRN 09/03/19 05/13/20 Unknown metformin 500 mg tablet 500 mg PO BID 09/03/19 05/13/20 Unknown nitroglycerin 0.4 mg sublingual 0.4 mg SL Q5M PRN 09/03/19 05/13/20 Unknown tablet acetaminophen [Tylenol] 650 mg PO Q6 PRN 09/19/19 05/13/20 Unknown ergocalciferol (vitamin D2) 1,250 mcg PO WK 09/19/19 05/13/20 Unknown [Vitamin D2] folic acid 0.4 mg PO DAILY 09/19/19 05/13/20 Unknown promethazine 12.5 mg PO DAILY 09/19/19 05/13/20 Unknown propranolol 80 mg PO BID 09/19/19 05/13/20 Unknown senna 8.6 mg PO BID PRN 09/19/19 05/13/20 Unknown amoxicillin 500 mg PO BID 05/13/20 05/13/20 Unknown furosemide 40 mg PO DAILY PRN 05/13/20 05/13/20 Unknown hydrochlorothiazide 12.5 mg PO BID 05/13/20 05/13/20 Unknown isosorbide mononitrate 120 mg PO DAILY 05/13/20 05/13/20 Unknown linaclotide [Linzess] 0 mcg PO DAILY 05/13/20 05/13/20 Unknown lisinopril 2.5 mg PO DAILY 05/13/20 05/13/20 Unknown ondansetron HCl 4 mg PO DAILY 05/13/20 05/13/20 Unknown rosuvastatin 5 mg PO DAILY 05/13/20 05/13/20 Unknown Active Medications Generic Name Dose Route Start Last Admin Trade Name Gerardoq PRN Reason Stop Dose Admin Acetaminophen 650 mg 05/13/20 20:27 05/14/20 07:49 Acetaminophen 325 Mg Tab PO 06/12/20 20:26 650 mg Q4H PRN Administration pain/fever Aspirin 81 mg 05/14/20 09:00 05/14/20 07:50 Aspirin 81 Mg Ectab PO 06/13/20 08:59 81 mg DAILY NATHANIEL Administration Buspirone HCl 10 mg 05/13/20 21:00 05/14/20 07:49 Buspirone 5 Mg Tab PO 06/12/20 20:59 10 mg BID NATHANIEL Administration Carbamazepine 200 mg 05/14/20 09:00 05/14/20 07:50 Carbamazepine 200 Mg Tablet PO 06/13/20 08:59 200 mg DAILY NATHANIEL Administration Folic Acid 400 mcg 05/14/20 09:00 05/14/20 07:50 Folic Acid 400 Mcg Tab PO 06/13/20 08:59 400 mcg DAILY NATHANIEL Administration Gabapentin 800 mg 05/13/20 21:00 05/14/20 14:36 Gabapentin 800 Mg Tab PO 06/12/20 20:59 800 mg TID NATHANIEL Administration Hydrochlorothiazide 12.5 mg 05/13/20 21:00 05/14/20 07:50 Hydrochlorothiazide 25 Mg Tab PO 06/12/20 20:59 12.5 mg BID NATHANIEL Administration Hydromorphone HCl 0.25 mg 05/14/20 16:39 05/14/20 17:02 Hydromorphone Inj 0.5 Mg/0.5 Ml Syr IV 05/28/20 16:38 0.25 mg Q4H PRN Administration Pain Cefepime HCl 2,000 mg/ Syringe 20 mls @ 5.5 mls/min 05/14/20 16:00 05/14/20 17:05 IV 05/28/20 15:59 5.5 mls/min Q12H NATHANIEL Administration Protocol Insulin Aspart 0 units 05/13/20 21:00 05/14/20 18:23 Insulin Aspart 100 Units/Ml 3 Ml Pen SC 06/12/20 20:59 Not Given ACHS NATHANIEL Isosorbide Mononitrate 120 mg 05/14/20 09:00 05/14/20 07:50 Isosorbide Curry Extended Rel 60 Mg Tabcr PO 06/13/20 08:59 120 mg DAILY NATHANIEL Administration Levothyroxine Sodium 100 mcg 05/14/20 06:30 05/14/20 06:02 Levothyroxine Sodium 100 Mcg Tablet PO 06/13/20 06:29 100 mcg DAILYBB NATHANIEL Administration Lisinopril 2.5 mg 05/14/20 09:00 05/14/20 07:49 Lisinopril 2.5 Mg Tab PO 06/13/20 08:59 2.5 mg DAILY NATHANIEL Administration Miscellaneous 1 ea 05/13/20 20:45 05/14/20 16:39 Check Fentanyl Patch Placement N/A 06/12/20 20:44 1 ea QS NATHANIEL Administration Miscellaneous 1 ea 05/13/20 20:45 05/14/20 00:39 Warfarin~Order Awaiting Action N/A 06/12/20 20:44 Not Given QS NATHANIEL Rosuvastatin Calcium 5 mg 05/14/20 09:00 05/14/20 07:49 Rosuvastatin Calcium 5 Mg Tab PO 06/13/20 08:59 5 mg DAILY NATHANIEL Administration NPO Date Last Intake of Fluids: 05/14/20 Time Last Intake of Fluids: 12:00 Last Intake of Fluids Comment: "FEW BITES OF LUNCH" Date Last Intake of Solids: 05/14/20 Time Last Intake of Solids: 12:00 Past Medical History Medical History CAD (coronary artery disease) July 2009 -NSTEMI 2009-2 KYLER to circumflex obtuse marginal, 1 KYLER to RCA Carotid artery stenosis Chronic diastolic CHF (congestive heart failure) Chronic respiratory failure with hypoxia CKD (chronic kidney disease), stage III DM type 2 (diabetes mellitus, type 2) Dyslipidemia History of DVT (deep vein thrombosis) Hypertension Hypothyroidism Interstitial lung disease Legally blind Multiple sclerosis Seizure disorder Exercise / Class Metabolic Activity III < 4 Walking/Shop/Light housework Past Family History Family History Mother Heart disease Past Surgical History Surgical History History of hysterectomy History of tonsillectomy Hx of cholecystectomy Past Anesthesia History No Hx of Anesthesia Complications and No Family Hx of Anesthesia Complications History of PONV No Hx of PONV and No Hx of Motion Sickness Social History Smoking Status: Never smoker Hx Alcohol Use: No Hx Substance Use: No Physical Exam Vital Signs Last Vital Signs Temp 37.0 C 05/14/20 21:06 Pulse 95 H 05/14/20 21:06 Resp 20 05/14/20 21:06 BP 140/71 05/14/20 21:06 Pulse Ox 98 05/14/20 21:06 Constitutional + obese ENMT Mouth: + edentulous Thyromental Distance: > or= 3.5 Finger Breadths Mallampati Class: II Neck normal visual inspection Respiratory normal respiratory effort Auscultation: lungs clear to auscultation bilaterally Cardiovascular Rate/Rhythm: regular rate and regular rhythm Neurologic resting tremor Psychiatric Orientation: alert Testing Laboratory Results 05/14/20 05:27 05/14/20 05:27 PT 27.3 Seconds (9.0-12.0) H 05/14/20 16:17 INR 2.7 (0.9-1.1) H 05/14/20 16:17 APTT 60.4 Seconds (21.0-31.0) H* 05/14/20 16:17 Hemoglobin A1c 6.8 % (4.5-5.6) H 05/14/20 05:27 Urine Color Yellow 05/13/20 16:28 Urine Appearance Cloudy (Clear) A 05/13/20 16:28 Urine pH 7.0 (4.5-7.5) 05/13/20 16:28 Ur Specific [place] 1.016 (1.000-1.030) 05/13/20 16:28 Urine Protein 1+ (Negative) H 05/13/20 16:28 Urine Glucose (UA) Negative (Negative) 05/13/20 16:28 Urine Ketones Negative (Negative) 05/13/20 16:28 Urine Nitrite Positive (Negative) A 05/13/20 16:28 Ur Leukocyte Esterase 2+ (Negative) H 05/13/20 16:28 Urine WBC (Auto) >30 /hpf (0-5) H 05/13/20 16:28 Urine RBC (Auto) 10-30 /hpf (0-4) H 05/13/20 16:28 U Hyaline Cast (Auto) 1-5 /lpf (0-5) 05/13/20 16:28 U Epithel Cells (Auto) 0-5 /lpf (0-5) 05/13/20 16:28 Urine Bacteria (Auto) 4+ (Negative) H 05/13/20 16:28 05/13/20 15:50 Aerobic Blood Culture - Preliminary Blood No growth in Aerobic bottle after 24 hours. Anaerobic Blood Culture - Preliminary No growth in Anaerobic bottle after 24 hours. 05/13/20 15:40 Aerobic Blood Culture - Preliminary Blood Gram negative bacilli Anaerobic Blood Culture - Preliminary No growth in Anaerobic bottle after 24 hours. 05/13/20 16:28 Urine Culture - Preliminary Urine,Straight Cath Gram negative bacilli 05/14/20 05/14/20 17:11 12:10 POC Glucose 136 H 235 H
[2020-05-14] MEDS ORDERED: fentaNYL citrate 100 MCG/2 ML VIAL ONE (21:33)
[2020-05-14] MEDS ORDERED: LIDOCAINE HCL 2% 2 ML VIAL/AMP(20MG/ML) INFIL ONE (21:49)
[2020-05-14] MEDS ORDERED: PROPOFOL IV EMULSION 10 MG/ML 20 ML VIAL IV ONE (21:49)
[2020-05-14] MEDS ORDERED: IOTHALAMATE MEGLUMINE II 17.2% 250 ML VIAL INSTIL ONE (21:50)
--- NOTE | 2020-05-14 21:54 | Post Operative Brief Note ---
PG Immediate Post Op with CF Date of Surgery May 14, 2020 Pre & Post Diagnosis Operation Date: 05/14/20 19:30 Pre-Op Diagnosis: Right Ureteral Stone; Sepsis I identified the patient and participated in the time-out.: Yes Procedure Operation Date: 05/14/20 19:30 Actual Procedures p Cystoscopy, Bilateral Retrograde Pyelogram(Not Applicable) - Nirmal Salvador MD s Right Ureteral Stent Insertion(Right) - Nirmal Salvador MD Surgeon Nirmal Salvador MD Stacking Machine Operator none Estimated Blood Loss 5 Findings Consistent with Post-Op Diagnosis Drains Gonzalez Catheter
[2020-05-14] MEDS ORDERED: ACETAMINOPHEN 325 MG TAB PO PRN (23:35)
[2020-05-14] MEDS ORDERED: FUROSEMIDE 40 MG TAB PO PRN (23:35)
[2020-05-14] MEDS ORDERED: NITROGLYCERIN SL 0.4 MG/TAB TAB SL PRN (23:35)
--- NOTE | 2020-05-14 23:37 | Anesthesiology Progress Note ---
Date of Service May 14, 2020 Anesthesia Post Procedure Vital Signs Vital Signs: Temp Pulse Pulse Resp BP Pulse Ox 05/14/20 23:35 36.8 C 81 20 153/79 H 97 05/14/20 22:45 36.4 C L 80 19 163/72 H 96 05/14/20 22:30 77 19 158/68 H 96 05/14/20 22:20 84 23 155/83 H 97 05/14/20 22:10 82 21 159/65 H 95 05/14/20 22:00 36.5 C 87 20 108/92 98 05/14/20 21:19 36.7 C 94 H 22 160/58 H 98 05/14/20 21:06 37.0 C 95 H 20 140/71 98 05/14/20 20:00 102 H 22 176/89 H 99 05/14/20 19:38 39.1 C H 91 H 24 181/70 H 99 05/14/20 17:56 39.4 C H 101 H 24 184/78 H 96 05/14/20 15:32 36.8 C 74 16 177/76 H 100 05/14/20 13:10 36.9 C 68 16 147/70 H 100 05/14/20 12:45 36.8 C 68 16 126/74 98 05/14/20 07:27 38.2 C H 05/14/20 07:25 38.6 C H 88 18 154/76 H 92 05/14/20 00:00 37.6 C H 81 14 126/46 L 100 Pain Intensity Generalized: Pain Intensity: 2 Transfer of Care Handoff Completed per policy Notes Mental Status: alert / awake / arousable Patient Amnestic to Procedure: Yes Nausea / Vomiting: adequately controlled Pain: adequately controlled Airway Patency, RR, SpO2: stable & adequate BP & HR: stable & adequate Hydration State: stable & adequate Anesthetic Complications: no major complications apparent
[2020-05-15] MEDS: hydroCHLOROthiazide 25 MG TAB PO SCH ×2 (00:04→08:31)
[2020-05-15] MEDS: GABAPENTIN 800 MG TAB PO SCH ×4 (00:04→20:59)
[2020-05-15] MEDS: INSULIN ASPART 100 UNITS/ML 3 ML PEN SC SCH ×5 (00:08→20:59)
[2020-05-15] MEDS: CHECK FENTANYL PATCH PLACEMENT SCH ×4 (00:23→23:53)
--- NOTE | 2020-05-15 00:47 | Operative Report (OR) ---
DATE OF OPERATION: 05/13/2020 PROCEDURE PERFORMED: Cystoscopy, right stent, left retrograde. HISTORY OF PRESENTATION: The patient is a 80-year-old female with a 10-day history of urinary tract infection who came in yesterday after falling and was febrile, had a CAT scan this morning which showed a proximal right stone that appeared to be minimally obstructing. She also had an extremely elevated protime. She was given vitamin K, I was informed about this at 12:40 and got a protime at 4, that came back at 5 as 2.7. I went to see the patient who had been afebrile for most of the day and feeling well and when I saw her, she was hallucinating, did not know where was, she had a temperature of 39.4. Because of this, I elected to take her to the operating room for stent placement. DESCRIPTION OF THE PROCEDURE: The patient was taken to the operating room where she was given sedation. She was placed in dorsal lithotomy position, she was prepped and draped in the usual sterile fashion. The cystoscope was passed per urethra. There was quite a bit of debris in the bladder, appeared to be inflamed and there did actually appear to be some flow from the right ureter. However, I did a retrograde and placed a right stent of 4 x 0.8 x 24 cm stent without difficulty. Left retrograde was performed, which did not show any significant obstruction, then a Gonzalez catheter was placed. The patient was transferred to the recovery room in stable condition. I attest to the content of the Intraoperative Record and any orders documented therein. Any exception s are noted below.
[2020-05-15] MEDS: fentaNYL 25 MCG/HR TDSY TD SCH (01:45)
[2020-05-15] MEDS: CEFEPIME 2,000 MG in SYRINGE 7.5 ML IV SCH ×2 (03:32→16:09)
[2020-05-15] MEDS: LEVOTHYROXINE SODIUM 100 MCG TABLET PO SCH (05:43)
[2020-05-15 06:17] LABS: Basophils # (auto) 0.01 K/uL (0-0.2); Basophils % (auto) 0.1 %; Eosinophils # (auto) 0.13 K/uL (0-0.5); Eosinophils % (auto) 1.9 %; Hematocrit (blood only) 30.2 % (37-47); Hemoglobin 9.9 g/dL (12.0-16.0); Immature Granulocytes # (auto) 0.02 K/uL (0.00-0.02); Immature Granulocytes % (auto) 0.3 %; Lymphocytes # (auto) 0.63 K/uL (1.2-3.4); Lymphocytes % (auto) 9.3 %; Mean Corpuscular Hemoglobin 31.8 pg (25-34); Mean Corpuscular Hgb Conc 32.8 g/dL (32-36); Mean Corpuscular Volume 97.1 fL (80-100); Mean Platelet Volume 10.4 fL (7.4-10.4); Monocytes # (auto) 0.94 K/uL (0.11-0.59); Monocytes % (auto) 13.9 %; Neutrophils # (auto) 5.01 K/uL (1.4-6.5); Neutrophils % (auto) 74.5 %; Platelet Count 204 K/uL (130-400); RDW Coefficient of Variation 12.9 % (11.5-14.5); RDW Standard Deviation 45.9 fL (36.4-46.3); Red Blood Count 3.11 M/uL (4.2-5.4); White Blood Count 6.74 K/uL (4.8-10.8)
[2020-05-15 06:31] LABS: INR 1.3 (0.9-1.1); Prothrombin Time 13.5 Seconds (9.0-12.0)
[2020-05-15] MEDS: ONDANSETRON 4 MG OD TAB PO SCH (06:56)
[2020-05-15 06:58] LABS: BUN Creatinine Ratio 11.7 (10-20); Creatinine Clr Calc Pharmacy 33.7 ml/min; Est GFR (African American) 40.6; Magnesium 2.4 mg/dl (1.8-2.4); Potassium 3.8 mmol/L (3.5-5.1)
[2020-05-15] MEDS: NITROGLYCERIN SL 0.4 MG/TAB TAB SL PRN ×2 (07:22→07:42)
[2020-05-15] MEDS: LORazepam 0.5 MG TAB PO PRN (07:23)
[2020-05-15] MEDS ORDERED: MoRPHine SULFATE 2 MG/ML CARP IV STA (07:45)
--- NOTE | 2020-05-15 07:55 | Fluoroscopy Report ---
FL retrograde includes kub CLINICAL HISTORY: CYSTO/STENT COMPARISON STUDY: CT of the abdomen and pelvis May 14, 2020. FLUOROSCOPY TIME: 24 seconds. FLUOROSCOPIC IMAGES: 7 FINDINGS: Fluoroscopy was provided during bilateral retrograde exam with ureteral stent insertion. Th ere is no significant hydronephrosis. IMPRESSION: Fluoroscopy provided during bilateral retrograde exam with right ureteral stent insertio n. ACT 112: Negative or not required by law. Electronically signed by: Kd Collins M.D. 05/15/2020 7:54 AM
[2020-05-15] MEDS ORDERED: glipiZIDE 5 MG TAB PO SCH (08:00)
[2020-05-15] MEDS ORDERED: METOPROLOL TARTRATE 25 MG TAB PO STA (08:10)
[2020-05-15] MEDS ORDERED: NITROGLYCERIN 2% OINTMENT 30GM TUBE EXT ONE (08:28)
[2020-05-15] MEDS: ROSUVASTATIN CALCIUM 5 MG TAB PO SCH (08:32)
[2020-05-15] MEDS: ISOSORBIDE MONO EXTENDED REL 60 MG TABCR PO SCH (08:32)
[2020-05-15] MEDS: carBAMazepine 200 MG TABLET PO SCH (08:32)
[2020-05-15] MEDS: ASPIRIN 81 MG ECTAB PO SCH (08:32)
[2020-05-15] MEDS: FOLIC ACID 400 MCG TAB PO SCH (08:33)
[2020-05-15] MEDS ORDERED: ALUMINUM/MAGNESIUM SUSP 18 ML, LIDOCAINE HCL VISCOUS 2% 6 ML, BARCODE IDENTIFIER 1 EA PO ONE (08:50)
--- NOTE | 2020-05-15 08:54 | Hospitalist Progress Note ---
Date of Service May 15, 2020 Assessment & Plan (1) Acute and chronic respiratory failure with hypoxia: Significant respiratory distress this am in the setting of new-onset PAF, chest pain, and acute/chronic diastolic CHF. CXR c/w pulm edema. Lasix 40mg IV x 1 given. NC O2 changed to oxymask. Rate control for PAF. Control chest pain with meds. Chronic respiratory failure 2nd to ILD, on home NC O2. (2) NSTEMI (non-ST elevated myocardial infarction): EKG changes, symptoms, and initial troponin of 1 in the setting of known, long-standing CAD c/w NSTEMI. Appreciate the urgent cardiology consult by Dr Jacobson. Plan - * heparin drip now (adult, standard dosing) * nitrates topical or SL as needed for chest pain * rate control for PAF; metoprolol given this am PO * Cont aspirin * Cont statin * Check lipids in am * Cont imdur * serial troponins * in light of bacteremia, recent ureteral stent placement, etc - medically manage for now, but cardiac cath likely to be needed (3) Paroxysmal atrial fibrillation: I could not find evidence of PAF in the past. [id number] start with rate-control strategy with beta blockers. She may need rhythm control as well with amiodarone. Defer such to cardiology. Transfer to telemetry. Heparin drip started as INR <2 after reversing coumadin for urological intervention yesterday. Will need to resume coumadin in the future. (4) Acute on chronic diastolic heart failure: Decompensated clinically & radiographically this am. Lasix 40mg IV x 1 and follow response. may need additional diuresis later today. Repeat echo ordered by cardiology. (5) Septicemia: 2nd to UTI in setting of right-sided kidney stone. blood cultures also positive from 05/13/20. pathogen - e.coli, with quinolone resistance. cont cefepime - can narrow once repeat blood cultures show sterility. appreciate urology assistance. (6) Kidney stone on right side: POD #1 s/p right-sided ureteral stent. Appreciate urology assistance. Definitive stone management in the future; treat UTI/bacteremia and the heart issues. (7) Urinary tract infection: complicated by obstructing kidney stone on right and septicemia. 2nd to e.coli. see above. (8) Essential tremor: noted h/o [place] features was on inderal for such needs metoprolol for PAF rate control in [place] of inderal (9) Lumbosacral radiculopathy: (10) Cervical radiculopathy: (11) Legally blind: (12) CKD (chronic kidney disease), stage III: baseline Cr about 1.3 to 1.5 bmp again stable today BMP am (13) Multiple sclerosis: noted PT/OT when able (14) History of DVT (deep vein thrombosis): on coumadin INR was markedly supratherapeutic yesterday, s/p vit K for cystoscopy with stent placement INR now <2 heparin drip initiated for PAF, NSTEMI, and h/o DVT (15) DM type 2 (diabetes mellitus, type 2): novolog SSI BSGs elevated today due to stress of NSTEMI, infection, etc add lantus at HS (16) Hypertension: cont home meds but hold HCTZ since lasix to be given see changes above in beta silvia, etc (17) Interstitial lung disease: likely cause of chronic hypoxic resp failure (18) CAD (coronary artery disease): see discussion above in "NSTEMI" (19) History of recent fall: (20) Hypothyroidism: TSH scantly elevated on 05/13/20 leave levothyroxine dose as is for now total critical care time 75 min -- including NSTEMI and acute CHF management, initiation of heparin, coordinating care w/ cardiology, transfer of pt to higher level of care, updating daughter, etc Admission and Anticipated Discharge Date Admission Date: May 13, 2020 Subjective Called by nursing staff this am that patient had had nausea with emesis followed by 10/10 chest pain. Prior to the call had received SL nitro without relief of pain. Morphine 2mg IV x 1 also given. STAT EKG obtained - rapid a.fib with lateral ST depressions. Order for PO metoprolol given (25mg x 1). I went to assess her at bedside -- she was uncomfortable appearing, tachypneic/dyspneic, and c/o severe pain in the high epigastric region. The pain radiated into the chest and back. She said the pain was different from prior heart pain. Did eat a popcicle this am and had emesis with such. Pain was 8-9/10 during my assessment. Additional nitropaste ordered for her pain. On exam she was quite tender in the epigastric region to palpation and was wheezy with rales on lung exam with signs of resp distress (tachypnea, mild retractions, etc). Lasix 40mg IV x 1 given. Daughter arrived to bedside and I discussed with her the current issues and need for additional cardiac work-up. Told pt and her daughter she would be moved to telemetry. Shortly after my visit I called and spoke with Dr Jacobson from [facility]. Voiced my concerns that patient was having NSTEMI, rapid a.fib, etc. Was concerned that if pain was refractory would she need code heart alert. We both went back to the bedside. By that point the pt's chest pain had resolved. She only had residual back discomfort. We both agreed with IV lasix, rate (and/or rhythm) control of a.fib, moving to tele, heparin drip, and serial troponins. Review of Systems Constitutional: + fever (low grade this am ) and + fatigue Respiratory: + cough, + dyspnea and + wheezing Cardiovascular: as per Subjective / HPI, + chest pain and + dyspnea at rest Gastrointestinal: + abdominal pain, + nausea and + vomiting Genitourinary: guzman in place Musculoskeletal: as per Subjective / HPI and + back pain Physical Exam Constitutional: + acute distress (chest pain, tachypnea, mild retractions, dyspnea w/ talking), + ill appearing and + frail appearing; no altered mental status ENMT: external ear and nose normal, oropharynx normal Respiratory: + respiratory distress, + retractions and + tachypneic Auscultation: + crackles and + wheezes Cardiovascular: Rate/Rhythm: + tachycardic and + irregularly irregular Heart Sounds: normal S1 and normal S2; no murmur Vessels: + JVD, posterior tibial pulses present and dorsalis pedis pulses present Extremities: no edema Chest (Breasts): Additional Comments: nontender to palpation Gastrointestinal (Abdomen): Inspection/Auscultation: normal bowel sounds; abdomen not distended Percussion/Palpation: + abdomen tender (high epigastric region ) and abdomen soft; no hepatosplenomegaly Psychiatric: Orientation: alert and oriented x 3 Affect: + anxious affect Results & Data Results & Data ([facility]) Vital Signs (Past 12 Hours) Vital Signs Temp Pulse Pulse Resp BP Pulse Ox 05/15/20 07:44 37.4 C 84 20 135/79 91 05/15/20 07:28 36.7 C 84 22 118/61 05/15/20 05:49 99 05/15/20 03:48 36.8 C 75 20 155/82 H 92 05/15/20 02:34 36.7 C 74 20 152/75 H 96 05/15/20 01:30 36.9 C 76 16 134/70 95 05/15/20 00:26 36.5 C 75 18 148/83 H 97 05/14/20 23:35 36.8 C 81 20 153/79 H 97 05/14/20 23:10 37.2 C 87 16 163/81 H 96 05/14/20 22:45 36.4 C L 80 19 163/72 H 96 05/14/20 22:30 77 19 158/68 H 96 05/14/20 22:20 84 23 155/83 H 97 05/14/20 22:10 82 21 159/65 H 95 05/14/20 22:00 36.5 C 87 20 108/92 98 05/14/20 21:19 36.7 C 94 H 22 160/58 H 98 05/14/20 21:06 37.0 C 95 H 20 140/71 98 Laboratory Results Laboratory Results - last 24 hr 05/14/20 05/14/20 05/14/20 12:10 16:17 17:11 WBC RBC Hgb Hct MCV MCH MCHC RDW Std Deviation RDW Coeff of Gillian Plt Count MPV Immature Gran % (Auto) Neut % (Auto) Lymph % (Auto) [place] % (Auto) Eos % (Auto) Baso % (Auto) Neut # (Auto) Lymph # (Auto) [place] # (Auto) Eos # (Auto) Baso # (Auto) Immature Gran # (Auto) PT 27.3 H INR 2.7 H APTT 60.4 H* PTT Ratio 2.2 Sodium Potassium Chloride Carbon Dioxide Anion Gap BUN Creatinine Est Cr Clr Drug Dosing Est GFR ( Amer) Est GFR (Non-Af Amer) BUN/Creatinine Ratio Glucose POC Glucose 235 H 136 H Calcium Magnesium Troponin I Lipase COVID-19 Eval Order SARS-CoV-2, RNA, NAAT 05/14/20 05/14/20 05/15/20 Unknown Unknown 00:07 WBC RBC Hgb Hct MCV MCH MCHC RDW Std Deviation RDW Coeff of Gillian Plt Count MPV Immature Gran % (Auto) Neut % (Auto) Lymph % (Auto) [place] % (Auto) Eos % (Auto) Baso % (Auto) Neut # (Auto) Lymph # (Auto) [place] # (Auto) Eos # (Auto) Baso # (Auto) Immature Gran # (Auto) PT INR APTT PTT Ratio Sodium Potassium Chloride Carbon Dioxide Anion Gap BUN Creatinine Est Cr Clr Drug Dosing Est GFR ( Amer) Est GFR (Non-Af Amer) BUN/Creatinine Ratio Glucose POC Glucose 211 H Calcium Magnesium Troponin I Lipase COVID-19 Eval [facility] [place] SARS-CoV-2, RNA, NAAT NEGATIVE 05/15/20 05/15/20 05/15/20 05:50 05:50 05:50 WBC 6.74 RBC 3.11 L Hgb 9.9 L Hct 30.2 L MCV 97.1 MCH 31.8 MCHC 32.8 RDW Std Deviation 45.9 RDW Coeff of Gillian 12.9 Plt Count 204 MPV 10.4 Immature Gran % (Auto) 0.3 Neut % (Auto) 74.5 Lymph % (Auto) 9.3 [place] % (Auto) 13.9 Eos % (Auto) 1.9 Baso % (Auto) 0.1 Neut # (Auto) 5.01 Lymph # (Auto) 0.63 L [place] # (Auto) 0.94 H Eos # (Auto) 0.13 Baso # (Auto) 0.01 Immature Gran # (Auto) 0.02 PT 13.5 H INR 1.3 H APTT PTT Ratio Sodium 135 L Potassium 3.8 Chloride 99 Carbon Dioxide 27 Anion Gap 9.0 BUN 17 Creatinine 1.42 H Est Cr Clr Drug Dosing 33.7 Est GFR ( Amer) 40.6 Est GFR (Non-Af Amer) 35.0 BUN/Creatinine Ratio 11.7 Glucose 136 H POC Glucose Calcium 9.0 Magnesium 2.4 Troponin I Lipase COVID-19 Eval Order SARS-CoV-2, RNA, NAAT 05/15/20 05/15/20 08:27 08:42 WBC RBC Hgb Hct MCV MCH MCHC RDW Std Deviation RDW Coeff of Gillian Plt Count MPV Immature Gran % (Auto) Neut % (Auto) Lymph % (Auto) [place] % (Auto) Eos % (Auto) Baso % (Auto) Neut # (Auto) Lymph # (Auto) [place] # (Auto) Eos # (Auto) Baso # (Auto) Immature Gran # (Auto) PT INR APTT PTT Ratio Sodium Potassium Chloride Carbon Dioxide Anion Gap BUN Creatinine Est Cr Clr Drug Dosing Est GFR ( Amer) Est GFR (Non-Af Amer) BUN/Creatinine Ratio Glucose POC Glucose 179 H Calcium Magnesium Troponin I Pending Lipase Pending COVID-19 Eval Order SARS-CoV-2, RNA, NAAT EKG - my reading - a.fib with RVR, lateral ST segment depressions CXR - my reading - diffuse pulmonary edema PG Care Time/CCT Total # of Minutes Spent Total Time Spent with Patient: Total time spent is greater than 50% in coordination of care (as documented) at patient's floor/unit and/or counseling patient: Critical Care Time: Yes Total Critical Care Time: 75 Coding Level of Care Code None Diagnoses Acute and chronic respiratory failure with hypoxia J96.21 NSTEMI (non-ST elevated myocardial infarction) I21.4 Paroxysmal atrial fibrillation I48.0 Acute on chronic diastolic heart failure I50.33 Septicemia A41.9 Kidney stone on right side N20.0 Urinary tract infection N30.00 Urinary tract infection type: acute cystitis Hematuria presence: without hematuria Essential tremor G25.0 Lumbosacral radiculopathy M54.17 Cervical radiculopathy M54.12 Legally blind H54.8 CKD (chronic kidney disease), stage III N18.3 Multiple sclerosis G35 History of DVT (deep vein thrombosis) Z86.718 DM type 2 (diabetes mellitus, type 2) E11.69 Diabetes mellitus skilled nursing insulin use: without skilled nursing use Diabetes mellitus complication status: with other specified complication Hypertension I10 Hypertension type: essential hypertension Interstitial lung disease J84.9 CAD (coronary artery disease) I25.119 Coronary Disease-Associated Artery/Lesion type: lummi artery [place] vs. transplanted heart: lummi heart Associated angina: with unspecified angina History of recent fall Z91.81 Hypothyroidism E03.9 Hypothyroidism type: acquired Additional Codes Critical Care Time - Critical Care Time: Yes ([id number]) Time Spent (min) 75 (1) Urinary tract infection Urinary tract infection type: acute cystitis Hematuria presence: without hematuria Qualified Code(s): N30.00 - Acute cystitis without hematuria (2) DM type 2 (diabetes mellitus, type 2) Diabetes mellitus skilled nursing insulin use: without termite treater helper use Diabetes mellitus complication status: with other specified complication Qualified Code(s): E11.69 - Type 2 diabetes mellitus with other specified complication (3) CAD (coronary artery disease) Coronary Disease-Associated Artery/Lesion type: lummi artery [place] vs. transplanted heart: lummi heart Associated angina: with unspecified angina Qualified Code(s): I25.119 - Atherosclerotic heart disease of lummi coronary artery with unspecified angina pectoris (4) Hypertension Hypertension type: essential hypertension Qualified Code(s): I10 - Essential (primary) hypertension (5) Hypothyroidism Hypothyroidism type: acquired Qualified Code(s): E03.9 - Hypothyroidism, unspecified
[2020-05-15] MEDS ORDERED: fentaNYL 25 MCG/HR TDSY TD SCH (09:00)
[2020-05-15] MEDS ORDERED: PROMETHAZINE HCL 25 MG TAB PO SCH (09:00)
[2020-05-15] MEDS ORDERED: PIOGLITAZONE HCL 15 MG TAB PO SCH (09:00)
[2020-05-15] MEDS ORDERED: PROPRANOLOL HCL LA 80 MG CAPCR PO SCH (09:00)
--- NOTE | 2020-05-15 09:31 | Urology Progress Note ---
Date of Service May 15, 2020 Assessment & Plan (1) Right ureteral stone: Postop day 1 status post stent placement for sepsis with obstructing stone. Patient is tolerating. He has considerable chronic medical issues at baseline and is being supported with close medical management and monitoring. Patient is experiencing some increasing nausea. Discussed options for control including PRN medications. We will continue with supportive care. Will likely need antibiotics for the next 7 to 10 days at least depending on final cultures and sensitivities. Will likely need set up for intervention at some point once the illness and infection have subsided. We will plan to continue to be available if any new issues or problems. Otherwise agree with plan for supportive care (2) Sepsis: Admission and Anticipated Discharge Date Admission Date: May 13, 2020 Subjective Postop from stent placement for obstruction issues. Patient has been tolerating well. Had developed fevers chills and ill feelings. Also had a elevated bleeding time had to be reversed. Is having some minor chills but fevers improved. Had some considerable nausea with vomiting this morning. Has noticed some frequency and urgency. Has not had severe pain in the back and flank. Does have occasional burning and irritation. No severe episodes or major changes. Had tolerated anesthesia without major problems Review of Systems Review of Systems: All systems reviewed & are unremarkable except as noted in HPI & below Physical Exam Physical Exam: General: Alert in no acute distress. Advanced age. Chronic Medical issues. HEENT: Normocephalic. Inspection normal. Cranial Nerves 2-12 Grossly intact with some hearing issues. Normal inspection of face. Normal inspection of neck. Psychologic: Normal affect. Baseline issues with memory. Respiratory: Nonlabored. No use of accessory muscles. No tachypnea or dyspnea. Cardiovascular: No tachycardia Skin: [place] and Dry. No rashes or visible lesions. Extremities/Lymphatics: Minor Mobility issues. Slow Gait. Abdomen: Obese. No rebound or guarding. : Gonzalez in place draining clear urine Results & Data ([facility]) Vital Signs (Past 12 Hours) Vital Signs Temp Pulse Pulse Resp BP Pulse Ox 05/15/20 07:44 37.4 C 84 20 135/79 91 05/15/20 07:28 36.7 C 84 22 118/61 05/15/20 05:49 99 05/15/20 03:48 36.8 C 75 20 155/82 H 92 05/15/20 02:34 36.7 C 74 20 152/75 H 96 05/15/20 01:30 36.9 C 76 16 134/70 95 05/15/20 00:26 36.5 C 75 18 148/83 H 97 05/14/20 23:35 36.8 C 81 20 153/79 H 97 05/14/20 23:10 37.2 C 87 16 163/81 H 96 05/14/20 22:45 36.4 C L 80 19 163/72 H 96 05/14/20 22:30 77 19 158/68 H 96 05/14/20 22:20 84 23 155/83 H 97 05/14/20 22:10 82 21 159/65 H 95 05/14/20 22:00 36.5 C 87 20 108/92 98 PG Care Time/CCT Total # of Minutes Spent Total Time Spent with Patient: Total time spent is greater than 50% in coordination of care (as documented) at patient's floor/unit and/or counseling patient: Coding Level of Care Code 31178 Subseq Hosp Care Lvl 3 Diagnoses Right ureteral stone N20.1 Sepsis A41.9 Sepsis type: sepsis due to unspecified organism (1) Sepsis Sepsis type: sepsis due to unspecified organism
[2020-05-15 09:38] LABS: Troponin I 1.07 ng/ml (0-0.045)
[2020-05-15] MEDS ORDERED: Heparin IV Standard *NO* Bolus IV SCH (09:45)
--- NOTE | 2020-05-15 09:50 | XRay Report ---
XR chest 1V portable HISTORY: 80 years-old Female resp distress acute respiratory distress COMPARISON: Chest radiograph 05/13/2020 TECHNIQUE: Portable AP view of the chest FINDINGS: Cardiac silhouette is enlarged. Probable coronary artery calcifications. Pulmonary vascular congestio n with interval development of mixed interstitial and alveolar opacities. Trace pleural effusions. No pneumothorax. Degenerative changes of the shoulders and spine. There is mild gaseous distention of t he stomach. IMPRESSION: 1. Cardiomegaly with interval development of mixed interstitial and alveolar opacities suggestive of pulmonary edema. Multifocal pneumonia could appear similarly. 2. Trace pleural effusions. ACT 112: Negative or not required by law. The above report was generated using voice recognition software. It may contain grammatical, syntax o r spelling errors. Electronically signed by: Hal Pratt M.D. 05/15/2020 9:48 AM
[2020-05-15] MEDS ORDERED: FUROSEMIDE 40 MG in SYRINGE 0 ML IV SCH (10:15)
[2020-05-15] MEDS: HEPARIN SODIUM/DEXTROSE 25,000 UNITS/500 ML BAG IV SCH (11:37)
--- NOTE | 2020-05-15 12:01 | Cardiology Consultation ---
Date of Consultation May 15, 2020 Assessment & Plan (1) NSTEMI (non-ST elevated myocardial infarction): (2) Paroxysmal atrial fibrillation: (3) Acute on chronic diastolic heart failure: (4) Septicemia: The patient is typically anticoagulated with Coumadin due to her remote history of DVT. Coumadin has been discontinued, and related coagulopathy reversed in preparation for cystoscopy yesterday. Given development of atrial fibrillation, she is now on a heparin bridge. At this point I would characterize this as a non-ST segment elevation myocardial infarction as she had epigastric discomfort and shortness of breath, as well as ST segment depression on EKG. Symptoms as well as her tachycardia resolved with administration of IV furosemide and oral metoprolol. Troponin mildly elevated at 1 ng/ml. We will trend troponin levels, continue medical therapy to include aspirin, unfractionated heparin, and likely metoprolol. She is typically on propranolol on a chronic basis, but given the development of atrial fibrillation, I plan to transition her to metoprolol, once we reestablish her heart rate and blood pressure trend now that she has been transferred to telemetry. Continue rosuvastatin and isosorbide mononitrate. It sounds as if she has had symptoms suggestive of exertional angina occasionally a few times a month for at least the last year. I am not certain what the chronicity of this is. She had a nonischemic nuclear stress test in 2018, and is treated chronically with long-acting nitrate therapy. At present, with resolution of her symptoms, I do not think an emergent cardiac catheterization is indicated. Her symptoms seem to have been provoked by her tenuous volume status with mild volume overload, and atrial fibrillation related tachycardia. An echocardiogram has been requested and will be obtained. We will need to monitor her volume status closely. She typically takes furosemide 40 mg on as-needed basis, at home, typically at least once a week. DVT prophylaxis: She is on full anticoagulation dose unfractionated heparin. History of Present Illness Attending Physician: Andrea Angela History of Present Illness Luisana Muhammad is a 80 year old female seen in cardiology consultation per the request of Dr Angela for the evaluation of epigastric discomfort and atrial fibrillation with rapid ventricular rate. Her recent office visit had been with Tyrone Cortez PA-C of our practice in February, having been followed by Dr. Borja during her hospitalization September 2019, and had seen Dr. Borja in post hospital follow-up 10/11/2019. Luisana was admitted on 05/13/2020 after presenting to the emergency department with complaint of weakness, and recent fall. She had also been treated recently by her primary care provider for a urinary tract infection. She reported symptoms of dysuria and recent fevers at home. Her symptoms only partially improved after treatment with oral amoxicillin. A CT of the abdomen and pelvis performed yesterday revealed findings suggestive of cystitis per the radiology report, as well as a right ureter stone. 09/06 blood . Cultures has yielded growth of gram- negative bacilli, and her urine culture yielded growth of E. coli. The patient underwent cystoscopy, and placement of a right ureter stent last evening. This morning she had complained of epigastric discomfort, and mild chest discomfort. An EKG performed at 8 AM this morning revealed atrial fibrillation with rapid ventricular response, 149 bpm, with noted ST segment depression in the lateral leads as well as subtle J-point elevation limited to lead aVR consistent with ischemia. The patient had been assessed on an urgent basis by Dr. Angela and intervention was initiated including the administration of 40 mg of IV furosemide, 25 mg of oral metoprolol. Stat laboratories included findings of elevated troponin of 1.07 NG per mL, having had an undetectable troponin I 05/13/2020. At the time of my initial assessment of the patient in room 363, prior to transfer to PCU, she was already feeling subjectively improved. She has since been transferred to the PCU, and on telemetry, it is noted that she has reverted to sinus rhythm in the 60s. Repeat EKG is currently in process. Problem list: 1.ASCVD. Non ST segment elevation AR in July 2009. Cardiac catheterization at [facility] in 2009 receiving a total of 3 drug eluting stents including 2 stents to the circumflex obtuse marginal territory in 1 drug eluting stent to the right coronary artery. 2.Chronic diastolic heart failure compensated with preserved ejection fraction 3.Chronic hypoxemic respiratory failure, on supplemental oxygen, 2 liters/minute via nasal cannula 28/03 4.Possible interstitial lung disease, followed by Pulmonary Medicine 5.Moderate asymptomatic carotid artery stenosis, followed by Vascular Surgery 6.Hypertension 7.Dyslipidemia 8.Type 2 diabetes mellitus 9.History of multiple recurrent DVT's (RLE), prescribed chronic coumadin anticoagulation. Followed and managed by [facility]. 10.Multiple sclerosis 11.History of seizure disorder. 12.Hypothyroidism 13.Hospitalization in September for multifactorial respiratory distress. Symptoms preceded by possible viral illness treated with prednisone with worsening cough hypoxia and burning sensation mid abdomen. Patient treated for infection and possible diastolic heart failure with symptoms responding. She received only a single dose of IV furosemide. Troponins mildly elevated but flat consistent with acute illness rather than acute ischemic changes. No EKG abnormalities induced. Allergies Allergy/AdvReac Type Severity Reaction Status Date / Time allopurinol Allergy Unknown COUGH Verified 05/13/20 18:35 blue dye Allergy Unknown BRILLIANT Verified 05/13/20 18:35 BLUE FCF dimethyl fumarate Allergy Unknown UNKNOWN Verified 05/13/20 18:35 Home Medications Home Medications Medication Instructions Recorded Confirmed Type Oxygen Home #1 ea 05/25/19 02/27/20 History aspirin 81 mg tablet,delayed 81 mg PO DAILY tab 05/25/19 05/13/20 History release biotin 5 mg tablet 5 tab PO DAILY tab 05/25/19 05/13/20 History fentanyl 25 mcg/hr transdermal 1 patch TD .COMPLEX ea 05/25/19 05/13/20 History patch pioglitazone 15 mg tablet 15 mg PO DAILY tab 05/25/19 05/13/20 History warfarin 1 mg tablet 0 mg PO DAILY tab 05/25/19 05/13/20 History buspirone 10 mg tablet 10 mg PO BID PRN 09/03/19 05/13/20 History carbamazepine 200 mg tablet 200 mg PO DAILY tab 09/03/19 05/13/20 History dulaglutide 1.5 mg/0.5 mL 0 mg SQ WEEKLY ml 09/03/19 05/13/20 History subcutaneous pen injector gabapentin 800 mg tablet 800 mg PO TID #270 tab 09/03/19 05/13/20 Rx glipizide 10 mg tablet 10 mg PO BID 09/03/19 05/13/20 History levothyroxine 100 mcg tablet 100 mcg PO DAILY 09/03/19 05/13/20 History lorazepam 0.5 mg tablet 0.5 mg PO DAILY PRN 09/03/19 05/13/20 History metformin 500 mg tablet 500 mg PO BID 09/03/19 05/13/20 History nitroglycerin 0.4 mg sublingual 0.4 mg SL Q5M PRN 09/03/19 05/13/20 History tablet acetaminophen [Tylenol] 650 mg PO Q6 PRN 09/19/19 05/13/20 History ergocalciferol (vitamin D2) 1,250 mcg PO WK 09/19/19 05/13/20 History [Vitamin D2] folic acid 0.4 mg PO DAILY 09/19/19 05/13/20 History promethazine 12.5 mg PO DAILY 09/19/19 05/13/20 History propranolol 80 mg PO BID 09/19/19 05/13/20 History senna 8.6 mg PO BID PRN 09/19/19 05/13/20 History amoxicillin 500 mg PO BID 05/13/20 05/13/20 History furosemide 40 mg PO DAILY PRN 05/13/20 05/13/20 History hydrochlorothiazide 12.5 mg PO BID 05/13/20 05/13/20 History isosorbide mononitrate 120 mg PO DAILY 05/13/20 05/13/20 History linaclotide [Linzess] 0 mcg PO DAILY 05/13/20 05/13/20 History lisinopril 2.5 mg PO DAILY 05/13/20 05/13/20 History ondansetron HCl 4 mg PO DAILY 05/13/20 05/13/20 History rosuvastatin 5 mg PO DAILY 05/13/20 05/13/20 History Patient History Medical History CAD (coronary artery disease) July 2009 -NSTEMI 2009-2 KYLER to circumflex obtuse marginal, 1 KYLER to RCA Carotid artery stenosis Chronic diastolic CHF (congestive heart failure) Chronic respiratory failure with hypoxia CKD (chronic kidney disease), stage III DM type 2 (diabetes mellitus, type 2) Dyslipidemia History of DVT (deep vein thrombosis) Hypertension Hypothyroidism Interstitial lung disease Legally blind Multiple sclerosis Seizure disorder Surgical History History of hysterectomy History of tonsillectomy Hx of cholecystectomy Family History Mother Heart disease Social History Smoking Status: Never smoker Hx Alcohol Use: No Hx Substance Use: No Preferred Language: Japanese Communication Ability: Effective Tank Pumper Panelboard Required: No Beliefs That Will Affect Care: None Current Living Situation: Spouse and Family Feels Safe at Home: Yes Physical Exam Physical Exam: Temp Pulse Resp BP Pulse Ox 37.6 C H 77 20 113/70 96 05/15/20 11:00 05/15/20 11:00 05/15/20 11:00 05/15/20 11:00 05/15/20 11:00 Constitutional: + obese Respiratory: Mildly decreased breath sounds bilaterally at the bases Cardiovascular: Rate/Rhythm: regular rhythm Heart Sounds: no murmur Vessels: + JVD (Difficult to assess neck veins due to body habitus) Extremities: + edema (Trace lower extremity edema) Gastrointestinal (Abdomen): normal bowel sounds, soft, nontender, no hepatosplenomegaly Neurologic: Legally blind, no focal deficits Genitourinary: Gonzalez catheter draining clear yellow urine Results & Data ([facility]) Vital Signs (Past 12 Hours) Vital Signs Temp Pulse Pulse Resp BP Pulse Ox 05/15/20 11:00 37.6 C H 77 20 113/70 96 05/15/20 07:44 37.4 C 84 20 135/79 91 05/15/20 07:28 36.7 C 84 22 118/61 05/15/20 05:49 99 05/15/20 03:48 36.8 C 75 20 155/82 H 92 05/15/20 02:34 36.7 C 74 20 152/75 H 96 05/15/20 01:30 36.9 C 76 16 134/70 95 05/15/20 00:26 36.5 C 75 18 148/83 H 97 Laboratory Results Cardiac Enzymes 05/15/20 Range/Units 08:27 Troponin I 1.070 H* (0-0.045) ng/ml Coagulation 05/14/20 05/15/20 Range/Units 16:17 05:50 PT 27.3 H 13.5 H (9.0-12.0) Seconds APTT 60.4 H* (21.0-31.0) Seconds CBC 05/15/20 Range/Units 05:50 WBC 6.74 (4.8-10.8) K/uL RBC 3.11 L (4.2-5.4) M/uL Hgb 9.9 L (12.0-16.0) g/dL Hct 30.2 L (37-47) % Plt Count 204 (130-400) K/uL Neut # (Auto) 5.01 (1.4-6.5) K/uL Lymph # (Auto) 0.63 L (1.2-3.4) K/uL Bureau # (Auto) 0.94 H (0.11-0.59) K/uL Eos # (Auto) 0.13 (0-0.5) K/uL Baso # (Auto) 0.01 (0-0.2) K/uL Comprehensive Metabolic Panel 05/15/20 Range/Units 05:50 Sodium 135 L (136-145) mmol/L Potassium 3.8 (3.5-5.1) mmol/L Chloride 99 (98-107) mmol/L Carbon Dioxide 27 (21-32) mmol/L BUN 17 (7-18) mg/dl Creatinine 1.42 H (0.6-1.2) mg/dl Glucose 136 H (70-99) mg/dl Calcium 9.0 (8.5-10.1) mg/dl Intake and Output 05/14/20 05/15/20 05/15/20 22:59 06:59 14:59 Intake Total 1040 / 1460.25 100 / 1460.25 Output Total 705 / 2355 1350 / 2355 Balance 335 / -894.75 -1250 / -894.75 Intake: IV 200 / 520.25 MAGNESIUM SULFATE / D5W 1 gm In 200 / 400 100 ml @ 50 mls/hr IV Q2H [facility] Rx#:[id number] IV Perioperative 600 / 600 Oral 240 / 340 100 / 340 Output: Urine 600 / 900 Estimated Blood Loss 5 / 5 Urine Amount (Catheter) 100 / 1450 1350 / 1450 Gonzalez/Indwelling 100 / 1450 1350 / 1450 Other: # Unmeasured Voids 1 Weight 87.4 kg
[2020-05-15 18:02] LABS: Partial Thromboplastin Ratio 2.1
[2020-05-15 18:04] LABS: Partial Thromboplastin Time 59.5 Seconds (21.0-31.0)
--- NOTE | 2020-05-15 19:00 | Electrocardiogram Report ---
Test Reason : Blood Pressure : / mmHG Vent. Rate : 149 BPM Atrial Rate : 000 BPM P-R Int : 000 ms QRS Dur : 098 ms QT Int : 264 ms P-R-T Axes : 000 079 173 degrees QTc Int : 415 ms Atrial fibrillation with rapid ventricular response Nonspecific ST and T wave abnormality Abnormal ECG When compared with ECG of 13-MAY-2020 23:51, Atrial fibrillation has replaced Sinus rhythm Vent. rate has increased BY [address] now depressed in Lateral leads Nonspecific T wave abnormality now evident in Inferior leads Confirmed by Ashwin Humphries ([id number]) on 05/15/2020 6:59:57 PM Referred By: REFERRED SELF Confirmed By:Franco Humphries
--- NOTE | 2020-05-15 19:05 | Electrocardiogram Report ---
Test Reason : Blood Pressure : / mmHG Vent. Rate : 079 BPM Atrial Rate : 079 BPM P-R Int : 194 ms QRS Dur : 084 ms QT Int : 392 ms P-R-T Axes : 060 017 094 degrees QTc Int : 449 ms Sinus rhythm with Premature atrial complexes T wave abnormality, consider lateral ischemia Abnormal ECG When compared with ECG of 15-MAY-2020 08:00, (unconfirmed) Sinus rhythm has replaced Atrial fibrillation Vent. rate has decreased BY [address] no longer depressed in Lateral leads Confirmed by Ashwin Humphries ([id number]) on 05/15/2020 7:05:01 PM Referred By: REFERRED SELF Confirmed By:Fracno Humphries
[2020-05-15] MEDS: METOPROLOL TARTRATE 25 MG TAB PO SCH (20:59)
[2020-05-15] MEDS: SENNA 8.6 MG TAB PO PRN (21:41)
[2020-05-16] MEDS: ACETAMINOPHEN 325 MG TAB PO PRN (01:02)
[2020-05-16] MEDS: CEFEPIME 2,000 MG in SYRINGE 7.5 ML IV SCH (04:45)
--- NOTE | 2020-05-16 04:46 | Emergency Department Note ---
History of Present Illness General Chief complaint: Weakness Time Seen by Provider: 05/13/20 15:50 Source: patient, EMS, RN notes reviewed and old records reviewed Mode of arrival: EMS Limitations: no limitations History of Present Illness Provider complaint: Weakness, urinary frequency Onset (ago): day(s) 1 Location: pelvis Radiation: back Severity: moderate Pain Consistency: + intermittent and + colicky Maximum Pain Intensity: 9 Current Pain Intensity: 9 Quality: + burning Relieved By: + immobilization Exacerbated By: + movement Associated symptoms: + confusion, + fever/chills and + weakness This is a 80-year-old female who arrives via EMS from home over concerns that the patient is weak. The patient has a history of sepsis from a urinary tract infection. The patient's only complaint is she feels she is weak and that she is having urinary frequency. Home Medications Home Medications Medication Instructions Recorded Confirmed Type Oxygen Home #1 ea 05/25/19 02/27/20 History aspirin 81 mg tablet,delayed 81 mg PO DAILY tab 05/25/19 05/13/20 History release biotin 5 mg tablet 5 tab PO DAILY tab 05/25/19 05/13/20 History fentanyl 25 mcg/hr transdermal 1 patch TD .COMPLEX ea 05/25/19 05/13/20 History patch pioglitazone 15 mg tablet 15 mg PO DAILY tab 05/25/19 05/13/20 History warfarin 1 mg tablet 0 mg PO DAILY tab 05/25/19 05/13/20 History buspirone 10 mg tablet 10 mg PO BID PRN 09/03/19 05/13/20 History carbamazepine 200 mg tablet 200 mg PO DAILY tab 09/03/19 05/13/20 History dulaglutide 1.5 mg/0.5 mL 0 mg SQ WEEKLY ml 09/03/19 05/13/20 History subcutaneous pen injector gabapentin 800 mg tablet 800 mg PO TID #270 tab 09/03/19 05/13/20 Rx glipizide 10 mg tablet 10 mg PO BID 09/03/19 05/13/20 History levothyroxine 100 mcg tablet 100 mcg PO DAILY 09/03/19 05/13/20 History lorazepam 0.5 mg tablet 0.5 mg PO DAILY PRN 09/03/19 05/13/20 History metformin 500 mg tablet 500 mg PO BID 09/03/19 05/13/20 History nitroglycerin 0.4 mg sublingual 0.4 mg SL Q5M PRN 09/03/19 05/13/20 History tablet acetaminophen [Tylenol] 650 mg PO Q6 PRN 09/19/19 05/13/20 History ergocalciferol (vitamin D2) 1,250 mcg PO WK 09/19/19 05/13/20 History [Vitamin D2] folic acid 0.4 mg PO DAILY 09/19/19 05/13/20 History promethazine 12.5 mg PO DAILY 09/19/19 05/13/20 History propranolol 80 mg PO BID 09/19/19 05/13/20 History senna 8.6 mg PO BID PRN 09/19/19 05/13/20 History amoxicillin 500 mg PO BID 05/13/20 05/13/20 History furosemide 40 mg PO DAILY PRN 05/13/20 05/13/20 History hydrochlorothiazide 12.5 mg PO BID 05/13/20 05/13/20 History isosorbide mononitrate 120 mg PO DAILY 05/13/20 05/13/20 History linaclotide [Linzess] 0 mcg PO DAILY 05/13/20 05/13/20 History lisinopril 2.5 mg PO DAILY 05/13/20 05/13/20 History ondansetron HCl 4 mg PO DAILY 05/13/20 05/13/20 History rosuvastatin 5 mg PO DAILY 05/13/20 05/13/20 History Allergies Allergy/AdvReac Type Severity Reaction Status Date / Time allopurinol Allergy Unknown COUGH Verified 05/13/20 18:35 blue dye Allergy Unknown BRILLIANT Verified 05/13/20 18:35 [facility] dimethyl fumarate Allergy Unknown UNKNOWN Verified 05/13/20 18:35 Past Med/Surg History Medical History CAD (coronary artery disease) July 2009 -NSTEMI 2009-2 KYLER to circumflex obtuse marginal, 1 KYLER to RCA Carotid artery stenosis Chronic diastolic CHF (congestive heart failure) Chronic respiratory failure with hypoxia CKD (chronic kidney disease), stage III DM type 2 (diabetes mellitus, type 2) Dyslipidemia History of DVT (deep vein thrombosis) Hypertension Hypothyroidism Interstitial lung disease Legally blind Multiple sclerosis Seizure disorder Surgical History History of hysterectomy History of tonsillectomy Hx of cholecystectomy Family History Mother Heart disease Social History Smoking Status: Never smoker Hx Alcohol Use: No Hx Substance Use: No Preferred Language: Maltese Communication Ability: Effective Level Glass Vial Filler Required: No Beliefs That Will Affect Care: None Current Living Situation: Spouse and Family Feels Safe at Home: Yes Review of Systems A total of 10 systems reviewed and were otherwise negative Physical Exam VITAL SIGNS - Vital signs and nursing notes were reviewed. GENERAL - 80-year-old female appearing stated age who is in no acute distress. Communicates well with provider and answers questions appropriately. SKIN - Without rashes. HEAD - NC/AT. EYES - PERRL with EOMI bilaterally. Sclera anicteric. Palpebral conjunctiva pink and moist with no injection noted. EARS - No deformities of external structures noted on gross examination bilaterally. No pain elicited with palpation of the tragus bilaterally. External auditory canals without discharge or otorrhea. Tympanic membranes pearly graves without retraction or bulging. No fluid or purulent material visualized behind the TM. Handle of malleus, umbo, cone of light, pars tensa/flaccid all easily visualized. NOSE - Midline and without cyanosis. No epistaxis or purulent drainage noted. Septum midline without deviation or septal hematoma noted. MOUTH/OROPHARYNX - Without perioral cyanosis. Buccal mucosa pink and moist and without leukoplakia. Tongue midline with equal elevation of palate bilaterally. No tonsillar hypertrophy, erythema, or exudates noted. dentition noted. NECK - Neck with FROM. Supple to palpation. lymphadenopathy noted. No nuchal rigidity. LUNGS - Chest wall symmetric without accessory muscle use, intercostals retractions, or central cyanosis. Normal vesicular breath sounds CTA B/L. No wheezes, rales, or rhonchi appreciated. CARDIAC - RRR with S1/S2. No murmur, rubs, or gallops appreciated. ABDOMEN - Abdominal contour without pulsations or visible masses. BS normoactive all four quadrants. No tenderness, palpable masses, hepatosplenomegaly, or ascites noted. EXTREMITIES - No clubbing or peripheral cyanosis. No pretibial edema present. +3/5 radial, posterior tibial, and dorsalis pedis pulses palpated throughout. +5/5 strength noted in UE/LE bilaterally. NEUROLOGIC - Cranial nerves II through XII grossly intact. Sensory intact to light touch throughout. Patellar reflexes +2/4. PSYCH - A&Ox3 and cooperates fully with examiner. Pt is very pleasant and interacts well with examiner. Course Administered Medications Acetaminophen (Acetaminophen 325 Mg Tab) 650 mg PO Q4H PRN PRN Reason: pain/fever Stop: 06/12/20 20:26 Last Admin: 05/16/20 01:02 Dose: 650 mg Documented by: [id number] Admin: 05/14/20 07:49 Dose: 650 mg Documented by: [id number] Aspirin (Aspirin 81 Mg Ectab) 81 mg PO DAILY [facility] Stop: 06/13/20 08:59 Last Admin: 05/18/20 10:14 Dose: 81 mg Documented by: [id number] Admin: 05/17/20 08:59 Dose: 81 mg Documented by: [id number] Admin: 05/16/20 09:23 Dose: 81 mg Documented by: [id number] Admin: 05/15/20 08:32 Dose: 81 mg Documented by: [id number] Admin: 05/14/20 07:50 Dose: 81 mg Documented by: [id number] Buspirone HCl (Buspirone 5 Mg Tab) 10 mg PO BID [facility]ATHANIEL Stop: 06/12/20 20:59 Last Admin: 05/18/20 20:38 Dose: 10 mg Documented by: [id number] Admin: 05/18/20 10:14 Dose: 10 mg Documented by: [id number] Admin: 05/17/20 20:12 Dose: 10 mg Documented by: [id number] Admin: 05/17/20 08:59 Dose: 10 mg Documented by: [id number] Admin: 05/16/20 21:24 Dose: 10 mg Documented by: [id number] Admin: 05/16/20 09:23 Dose: 10 mg Documented by: [id number] Admin: 05/15/20 20:59 Dose: 10 mg Documented by: [id number] Admin: 05/15/20 08:31 Dose: 10 mg Documented by: [id number] Admin: 05/15/20 00:03 Dose: 10 mg Documented by: [id number] Admin: 05/14/20 07:49 Dose: 10 mg Documented by: [id number] Admin: 05/13/20 21:06 Dose: 10 mg Documented by: [id number] Carbamazepine (Carbamazepine 200 Mg Tablet) 200 mg PO DAILY [facility]ATH[facility]EL Stop: 06/13/20 08:59 Last Admin: 05/18/20 10:14 Dose: 200 mg Documented by: [id number] Admin: 05/17/20 09:00 Dose: 200 mg Documented by: [id number] Admin: 05/16/20 09:24 Dose: 200 mg Documented by: [id number] Admin: 05/15/20 08:32 Dose: 200 mg Documented by: [id number] Admin: 05/14/20 07:50 Dose: 200 mg Documented by: [id number] Fentanyl (Fentanyl 25 Mcg/Hr Tdsy) 25 mcg TD Q72H [facility] Stop: 05/29/20 00:59 Last Admin: 05/18/20 00:09 Dose: 25 mcg Documented by: [id number] Admin: 05/15/20 01:45 Dose: 25 mcg Documented by: [id number] Folic Acid (Folic Acid 400 Mcg Tab) 400 mcg PO DAILY NATH[facility]EL Stop: 06/13/20 08:59 Last Admin: 05/18/20 10:14 Dose: 400 mcg Documented by: [id number] Admin: 05/17/20 09:00 Dose: 400 mcg Documented by: [id number] Admin: 05/16/20 09:23 Dose: 400 mcg Documented by: [id number] Admin: 05/15/20 08:33 Dose: 400 mcg Documented by: [id number] Admin: 05/14/20 07:50 Dose: 400 mcg Documented by: [id number] Gabapentin (Gabapentin 800 Mg Tab) 800 mg PO TID NATHANIEL Stop: 06/12/20 20:59 Last Admin: 05/18/20 20:38 Dose: 800 mg Documented by: [id number] Admin: 05/18/20 16:07 Dose: 800 mg Documented by: [id number] Admin: 05/18/20 10:15 Dose: 800 mg Documented by: [id number] Admin: 05/17/20 20:11 Dose: 800 mg Documented by: [id number] Admin: 05/17/20 15:38 Dose: 800 mg Documented by: [id number] Admin: 05/17/20 09:00 Dose: 800 mg Documented by: [id number] Admin: 05/16/20 21:23 Dose: 800 mg Documented by: [id number] Admin: 05/16/20 15:06 Dose: 800 mg Documented by: [id number] Admin: 05/16/20 09:22 Dose: 800 mg Documented by: [id number] Admin: 05/15/20 20:59 Dose: 800 mg Documented by: [id number] Admin: 05/15/20 14:02 Dose: 800 mg Documented by: [id number] Admin: 05/15/20 08:31 Dose: 800 mg Documented by: [id number] Admin: 05/15/20 00:04 Dose: 800 mg Documented by: [id number] Admin: 05/14/20 14:36 Dose: 800 mg Documented by: [id number] Admin: 05/14/20 07:51 Dose: 800 mg Documented by: [id number] Admin: 05/13/20 21:06 Dose: 800 mg Documented by: [id number] Hydromorphone HCl (Hydromorphone Inj 0.5 Mg/0.5 Ml Syr) 0.25 mg IV Q4H PRN PRN Reason: Pain Stop: 05/28/20 16:38 Last Admin: 05/14/20 17:02 Dose: 0.25 mg Documented by: [id number] Heparin Sodium/Dextrose (Heparin Sodium/Dextrose) 25,000 units in 500 mls @ 14 mls/hr IV .Q24H NATHANIEL; Protocol Stop: 06/14/20 09:44 Last Titration: 05/18/20 22:42 Dose: 700 units/hr, 14 mls/hr Documented by: [id number] Cosigned by: [id number] Titration: 05/18/20 16:02 Dose: 700 units/hr, 14 mls/hr Documented by: [id number] Cosigned by: [id number] Titration: 05/18/20 15:00 Dose: 0 units/hr, 0 mls/hr Documented by: [id number] Cosigned by: [id number] Titration: 05/18/20 08:18 Dose: 900 units/hr, 18 mls/hr Documented by: [id number] Cosigned by: [id number] Admin: 05/18/20 08:18 Dose: 900 units/hr, 18 mls/hr Documented by: [id number] Cosigned by: [id number] Titration: 05/18/20 07:17 Dose: 900 units/hr, 18 mls/hr Documented by: [id number] Cosigned by: [id number] Admin: 05/17/20 20:07 Dose: 650 units/hr, 13 mls/hr Documented by: [id number] Cosigned by: [id number] Titration: 05/17/20 17:54 Dose: 650 units/hr, 13 mls/hr Documented by: [id number] Cosigned by: [id number] Titration: 05/17/20 07:14 Dose: 650 units/hr, 13 mls/hr Documented by: [id number] Cosigned by: [id number] Titration: 05/17/20 00:54 Dose: 650 units/hr, 13 mls/hr Documented by: [id number] Cosigned by: [id number] Titration: 05/17/20 00:22 Dose: 0 units/hr, 0 mls/hr Documented by: [id number] Cosigned by: [id number] Titration: 05/16/20 17:23 Dose: 800 units/hr, 16 mls/hr Documented by: [id number] Cosigned by: [id number] Titration: 05/16/20 09:38 Dose: 1,000 units/hr, 20 mls/hr Documented by: [id number] Cosigned by: [id number] Titration: 05/16/20 07:14 Dose: 0 units/hr, 0 mls/hr Documented by: [id number] Cosigned by: [id number] Titration: 05/16/20 07:01 Dose: 1,200 units/hr, 24 mls/hr Documented by: [id number] Cosigned by: [id number] Admin: 05/16/20 06:43 Dose: 1,200 units/hr, 24 mls/hr Documented by: [id number] Cosigned by: [id number] Titration: 05/16/20 06:43 Dose: 1,200 units/hr, 24 mls/hr Documented by: [id number] Cosigned by: [id number] Titration: 05/15/20 19:22 Dose: 1,200 units/hr, 24 mls/hr Documented by: [id number] Cosigned by: [id number] Titration: 05/15/20 18:34 Dose: 1,200 units/hr, 24 mls/hr Documented by: [id number] Cosigned by: [id number] Admin: 05/15/20 11:37 Dose: 1,200 units/hr, 24 mls/hr Documented by: [id number] Cosigned by: [id number] Amiodarone HCl/Dextrose (Nexterone / D5w) 360 mg in 200 mls @ 16.667 mls/hr IV .Q12H NATHANIEL Stop: 06/15/20 12:14 Last Admin: 05/18/20 12:14 Dose: 0.5 mg/min, 16.7 mls/hr Documented by: [id number] Cosigned by: [id number] Infusion: 05/18/20 12:07 Dose: 0.5 mg/min, 16.7 mls/hr Documented by: [id number] Cosigned by: [id number] Admin: 05/18/20 00:08 Dose: 0.5 mg/min, 16.7 mls/hr Documented by: [id number] Cosigned by: [id number] Infusion: 05/18/20 00:04 Dose: 0.5 mg/min, 16.7 mls/hr Documented by: [id number] Cosigned by: [id number] Admin: 05/17/20 12:05 Dose: 0.5 mg/min, 16.7 mls/hr Documented by: [id number] Cosigned by: [id number] Infusion: 05/17/20 12:05 Dose: 0.5 mg/min, 16.7 mls/hr Documented by: [id number] Cosigned by: [id number] Admin: 05/17/20 00:07 Dose: 0.5 mg/min, 16.7 mls/hr Documented by: [id number] Cosigned by: [id number] Infusion: 05/17/20 00:07 Dose: 0.5 mg/min, 16.7 mls/hr Documented by: [id number] Cosigned by: [id number] Admin: 05/16/20 12:21 Dose: 0.5 mg/min, 16.7 mls/hr Documented by: [id number] Cosigned by: [id number] Ceftriaxone Sodium 2,000 mg/ (Dextrose) 70 mls @ 140 mls/hr IV DAILY@1600 NATHANIEL Stop: 05/28/20 15:59 Last Infusion: 05/18/20 16:47 Dose: 0 mls/hr Documented by: [id number] Admin: 05/18/20 16:06 Dose: 140 mls/hr Documented by: [id number] Infusion: 05/17/20 16:05 Dose: 0 mls/hr Documented by: [id number] Admin: 05/17/20 15:35 Dose: 140 mls/hr Documented by: [id number] Infusion: 05/16/20 16:20 Dose: 0 mls/hr Documented by: [id number] Admin: 05/16/20 15:31 Dose: 140 mls/hr Documented by: [id number] Insulin Aspart (Insulin Aspart 100 Units/Ml 3 Ml Pen) 0 units SC ACHS NATHANIEL Stop: 06/12/20 20:59 Last Admin: 05/18/20 20:40 Dose: 3 units Documented by: [id number] Cosigned by: [id number] Admin: 05/18/20 18:05 Dose: 6 units Documented by: [id number] Cosigned by: [id number] Admin: 05/18/20 12:16 Dose: 8 units Documented by: [id number] Cosigned by: [id number] Admin: 05/18/20 10:16 Dose: 3 units Documented by: [id number] Cosigned by: [id number] Admin: 05/17/20 20:14 Dose: 2 units Documented by: [id number] Cosigned by: [id number] Admin: 05/17/20 17:52 Dose: 7 units Documented by: [id number] Cosigned by: [id number] Admin: 05/17/20 12:07 Dose: 12 units Documented by: [id number] Cosigned by: [id number] Admin: 05/17/20 09:02 Dose: 7 units Documented by: [id number] Cosigned by: [id number] Admin: 05/16/20 21:26 Dose: 5 units Documented by: [id number] Cosigned by: [id number] Admin: 05/16/20 17:05 Dose: 7 units Documented by: [id number] Cosigned by: [id number] Admin: 05/16/20 12:17 Dose: 5 units Documented by: [id number] Cosigned by: [id number] Admin: 05/16/20 08:00 Dose: 3 units Documented by: [id number] Cosigned by: [id number] Admin: 05/15/20 20:59 Dose: 4 units Documented by: [id number] Cosigned by: [id number] Admin: 05/15/20 17:47 Dose: 5 units Documented by: [id number] Cosigned by: [id number] Admin: 05/15/20 13:01 Dose: 5 units Documented by: [id number] Cosigned by: [id number] Admin: 05/15/20 10:00 Dose: 1 units Documented by: [id number] Cosigned by: [id number] Admin: 05/15/20 00:08 Dose: 2 units Documented by: [id number] Cosigned by: [id number] Admin: 05/14/20 18:23 Dose: Not Given Documented by: [id number] Admin: 05/14/20 12:20 Dose: 3 units Documented by: [id number] Cosigned by: [id number] Admin: 05/14/20 08:56 Dose: 3 units Documented by: [id number] Cosigned by: [id number] Admin: 05/13/20 21:44 Dose: Not Given Documented by: [id number] Insulin Glargine (Insulin Glargine Solostar 100 Units/Ml 3 Ml Pen) 10 units SC BID NATHANIEL Stop: 06/15/20 20:59 Last Admin: 05/18/20 20:38 Dose: 10 units Documented by: [id number] Cosigned by: [id number] Admin: 05/18/20 10:15 Dose: 10 units Documented by: [id number] Cosigned by: [id number] Admin: 05/17/20 20:09 Dose: 10 units Documented by: [id number] Cosigned by: [id number] Admin: 05/17/20 09:02 Dose: 10 units Documented by: [id number] Cosigned by: [id number] Admin: 05/16/20 21:24 Dose: 10 units Documented by: [id number] Cosigned by: [id number] Isosorbide Mononitrate (Isosorbide Yell Extended Rel 60 Mg Tabcr) 120 mg PO DAILY NATHANIEL Stop: 06/13/20 08:59 Last Admin: 05/18/20 10:14 Dose: 120 mg Documented by: [id number] Admin: 05/17/20 09:00 Dose: 120 mg Documented by: [id number] Admin: 05/16/20 09:22 Dose: 120 mg Documented by: [id number] Admin: 05/15/20 08:32 Dose: 120 mg Documented by: [id number] Admin: 05/14/20 07:50 Dose: 120 mg Documented by: [id number] Levothyroxine Sodium (Levothyroxine Sodium 100 Mcg Tablet) 100 mcg PO DAILYBB [facility] Stop: 06/13/20 06:29 Last Admin: 05/18/20 05:39 Dose: 100 mcg Documented by: [id number] Admin: 05/17/20 05:58 Dose: 100 mcg Documented by: [id number] Admin: 05/16/20 06:43 Dose: 100 mcg Documented by: [id number] Admin: 05/15/20 05:43 Dose: 100 mcg Documented by: [id number] Admin: 05/14/20 06:02 Dose: 100 mcg Documented by: [id number] Lorazepam (Lorazepam 0.5 Mg Tab) 0.5 mg PO DAILY PRN PRN Reason: Anxiety Stop: 06/12/20 20:26 Last Admin: 05/18/20 20:38 Dose: 0.5 mg Documented by: [id number] Admin: 05/17/20 20:08 Dose: 0.5 mg Documented by: [id number] Admin: 05/15/20 07:23 Dose: 0.5 mg Documented by: [id number] Metoprolol Tartrate (Metoprolol Tartrate 25 Mg Tab) 25 mg PO TID [facility] Stop: 06/17/20 13:59 Last Admin: 05/18/20 20:39 Dose: 25 mg Documented by: [id number] Admin: 05/18/20 12:18 Dose: 25 mg Documented by: [id number] Miscellaneous (Fentanyl Patch Remove & Waste) 1 ea N/A Q72H [facility] Stop: 06/14/20 00:58 Last Admin: 05/18/20 00:09 Dose: 1 ea Documented by: [id number] Cosigned by: [id number] Admin: 05/15/20 01:45 Dose: 1 ea Documented by: [id number] Cosigned by: [id number] Miscellaneous (Check Fentanyl Patch Placement) 1 ea N/A QS [facility] Stop: 06/14/20 07:59 Last Admin: 05/18/20 16:07 Dose: 1 ea Documented by: [id number] Admin: 05/18/20 10:15 Dose: 1 ea Documented by: [id number] Admin: 05/17/20 23:31 Dose: 1 ea Documented by: [id number] Admin: 05/17/20 15:38 Dose: 1 ea Documented by: [id number] Admin: 05/17/20 08:00 Dose: 1 ea Documented by: [id number] Admin: 05/16/20 23:42 Dose: 1 ea Documented by: [id number] Admin: 05/16/20 15:06 Dose: 1 ea Documented by: [id number] Admin: 05/16/20 08:06 Dose: 1 ea Documented by: [id number] Admin: 05/15/20 23:53 Dose: 1 ea Documented by: [id number] Admin: 05/15/20 16:04 Dose: 1 ea Documented by: [id number] Admin: 05/15/20 09:48 Dose: 1 ea Documented by: [id number] Ondansetron HCl (Ondansetron 4 Mg Od Tab) 4 mg PO DAILY [facility]ATHANIEL Stop: 06/14/20 08:59 Last Admin: 05/18/20 10:23 Dose: 4 mg Documented by: [id number] Admin: 05/17/20 09:13 Dose: 4 mg Documented by: [id number] Admin: 05/16/20 09:22 Dose: 4 mg Documented by: [id number] Admin: 05/15/20 06:56 Dose: 4 mg Documented by: [id number] Ondansetron HCl (Ondansetron Inj 2 Mg/Ml 2 Ml Vial) 4 mg IV Q4H PRN PRN Reason: Nausea Stop: 06/17/20 21:03 Last Admin: 05/18/20 21:24 Dose: 4 mg Documented by: [id number] Polyethylene Glycol (Polyethylene (Miralax) 17 Gm Pack) 17 gm PO DAILY PRN PRN Reason: Constipation Stop: 06/16/20 14:21 Last Admin: 05/17/20 15:37 Dose: 17 gm Documented by: [id number] Rosuvastatin Calcium (Rosuvastatin Calcium 5 Mg Tab) 5 mg PO DAILY [facility]ATHANIEL Stop: 06/13/20 08:59 Last Admin: 05/18/20 10:14 Dose: 5 mg Documented by: [id number] Admin: 05/17/20 08:59 Dose: 5 mg Documented by: [id number] Admin: 05/16/20 09:22 Dose: 5 mg Documented by: [id number] Admin: 05/15/20 08:32 Dose: 5 mg Documented by: [id number] Admin: 05/14/20 07:49 Dose: 5 mg Documented by: [id number] Senna/Docusate Sodium (Docusate Sodium/Senna 50/8.6mg Tab) 1 tab PO BID NATHANIEL Stop: 06/16/20 20:59 Last Admin: 05/18/20 20:39 Dose: 1 tab Documented by: [id number] Admin: 05/18/20 10:13 Dose: 1 tab Documented by: [id number] Admin: 05/17/20 20:08 Dose: 1 tab Documented by: [id number] Discontinued Medications Acetaminophen (Acetaminophen 650 Mg Supp) 650 mg OH NOW STA Stop: 05/14/20 19:38 Last Admin: 05/14/20 19:47 Dose: 650 mg Documented by: [id number] Hydrox/Mg Hydrox/Simethicone 18 ml/ Lidocaine HCl 6 ml/ [employer] 1 ea 0 ml PO ONE ONE Stop: 05/15/20 08:51 Last Admin: 05/15/20 10:00 Dose: 24 ml Documented by: [id number] Hydrochlorothiazide (Hydrochlorothiazide 25 Mg Tab) 12.5 mg PO BID NATHANIEL Stop: 06/12/20 20:59 Last Admin: 05/15/20 08:31 Dose: 12.5 mg Documented by: [id number] Admin: 05/15/20 00:04 Dose: 12.5 mg Documented by: [id number] Admin: 05/14/20 07:50 Dose: 12.5 mg Documented by: [id number] Admin: 05/13/20 21:06 Dose: 12.5 mg Documented by: [id number] Sodium Chloride (Nss) 500 mls @ 999 mls/hr IV .Q31M ONE Stop: 05/13/20 17:12 Last Infusion: 05/13/20 17:42 Dose: 0 mls/hr Documented by: [id number] Admin: 05/13/20 17:11 Dose: 999 mls/hr Documented by: [id number] Piperacillin Sod/Tazobactam Sod (Zosyn) 4.5 gm in 120 mls @ 240 mls/hr IV NOW ONE Stop: 05/13/20 17:24 Last Infusion: 05/13/20 17:47 Dose: 0 mls/hr Documented by: [id number] Admin: 05/13/20 17:14 Dose: 240 mls/hr Documented by: [id number] Levofloxacin/Dextrose (Levaquin/D5w) 750 mg in 150 mls @ 100 mls/hr IV NOW STA Stop: 05/13/20 18:24 Last Infusion: 05/13/20 21:47 Dose: 0 mls/hr Documented by: [id number] Admin: 05/13/20 18:09 Dose: 100 mls/hr Documented by: [id number] Ceftriaxone Sodium 2,000 mg/ (Dextrose) 70 mls @ 100 mls/hr IV Q24H [facility]; Protocol Stop: 05/24/20 06:59 Last Infusion: 05/14/20 07:12 Dose: 0 mls/hr Documented by: [id number] Admin: 05/14/20 06:02 Dose: 100 mls/hr Documented by: [id number] Sodium Chloride (Nss) 500 mls @ 80 mls/hr IV .Q6H15M NATHANIEL Stop: 05/14/20 02:44 Last Infusion: 05/14/20 03:49 Dose: 0 mls/hr Documented by: [id number] Admin: 05/13/20 21:14 Dose: 80 mls/hr Documented by: [id number] Magnesium Sulfate/Dextrose (Magnesium Sulfate / D5w) 1 gm in 100 mls @ 50 mls/hr IV Q2H [facility] Stop: 05/14/20 17:14 Last Infusion: 05/14/20 19:20 Dose: 0 mls/hr Documented by: [id number] Admin: 05/14/20 16:38 Dose: 50 mls/hr Documented by: [id number] Infusion: 05/14/20 16:36 Dose: 50 mls/hr Documented by: [id number] Admin: 05/14/20 14:36 Dose: 50 mls/hr Documented by: [id number] Infusion: 05/14/20 13:57 Dose: 50 mls/hr Documented by: [id number] Admin: 05/14/20 11:57 Dose: 50 mls/hr Documented by: [id number] Infusion: 05/14/20 11:54 Dose: 50 mls/hr Documented by: [id number] Admin: 05/14/20 09:54 Dose: 50 mls/hr Documented by: [id number] Phytonadione 2.5 mg/ Sodium (Chloride) 50.25 mls @ 100.5 mls/hr IV ONE ONE Stop: 05/14/20 12:34 Last Infusion: 05/14/20 13:17 Dose: 0 mls/hr Documented by: [id number] Admin: 05/14/20 12:44 Dose: 100.5 mls/hr Documented by: [id number] Cefepime HCl 2,000 mg/ Syringe 20 mls @ 5.5 mls/min IV Q12H [facility]; Protocol Stop: 05/28/20 15:59 Last Admin: 05/16/20 04:45 Dose: 5.5 mls/min Documented by: [id number] Admin: 05/15/20 16:09 Dose: 5.5 mls/min Documented by: [id number] Admin: 05/15/20 03:32 Dose: 5.5 mls/min Documented by: [id number] Admin: 05/14/20 17:05 Dose: 5.5 mls/min Documented by: [id number] Furosemide 40 mg/ Syringe 4 mls @ 4 mls/min IV 1015 [facility] Stop: 05/15/20 10:45 Last Admin: 05/15/20 11:08 Dose: 4 mls/min Documented by: [id number] Amiodarone HCl/Dextrose (Nexterone / D5w) 360 mg in 200 mls @ 33.333 mls/hr IV ONE ONE Stop: 05/16/20 12:14 Last Infusion: 05/16/20 12:40 Dose: 0 mls/hr Documented by: [id number] Cosigned by: [id number] Infusion: 05/16/20 07:01 Dose: 33.3 mls/hr Documented by: [id number] Cosigned by: [id number] Admin: 05/16/20 06:43 Dose: 33.3 mls/hr Documented by: [id number] Cosigned by: [id number] Amiodarone HCl/Dextrose (Nexterone / D5w) 150 mg in 100 mls @ 600 mls/hr IV NOW [facility] Stop: 05/16/20 06:10 Last Infusion: 05/16/20 07:10 Dose: 0 mls/hr, 0 mls/hr Documented by: [id number] Cosigned by: [id number] Admin: 05/16/20 06:13 Dose: 600 mls/hr, 600 mls/hr Documented by: [id number] Cosigned by: [id number] Furosemide 40 mg/ Syringe 4 mls @ 4 mls/min IV ONE ONE Stop: 05/16/20 10:01 Last Admin: 05/16/20 11:25 Dose: 4 mls/min Documented by: [id number] Magnesium Sulfate/Dextrose (Magnesium Sulfate / D5w) 1 gm in 100 mls @ 50 mls/hr IV ONE ONE Stop: 05/17/20 12:29 Last Infusion: 05/17/20 13:26 Dose: 0 mls/hr Documented by: [id number] Admin: 05/17/20 11:26 Dose: 50 mls/hr Documented by: [id number] Heparin Sodium (Porcine) 5,000 (units/ Syringe) 5 mls @ 10 mls/min IV ONE ONE Stop: 05/18/20 07:31 Last Admin: 05/18/20 08:18 Dose: 10 mls/min Documented by: [id number] Cosigned by: [id number] Insulin Glargine (Insulin Glargine Solostar 100 Units/Ml 3 Ml Pen) 8 units SC QAM NATHANIEL Stop: 06/15/20 08:59 Last Admin: 05/16/20 10:34 Dose: 8 units Documented by: [id number] Cosigned by: [id number] Iothalamate Meglumine (Iothalamate Meglumine Ii 17.2% 250 Ml Vial) 30 ml INSTIL ONCE ONE Stop: 05/14/20 21:51 Last Admin: 05/14/20 21:42 Dose: 11 ml Documented by: [id number] Lisinopril (Lisinopril 2.5 Mg Tab) 2.5 mg PO DAILY NATHANIEL Stop: 06/13/20 08:59 Last Admin: 05/15/20 08:32 Dose: 2.5 mg Documented by: [id number] Admin: 05/14/20 07:49 Dose: 2.5 mg Documented by: [id number] Magnesium Citrate (Magnesium Citrate 296 Ml/Btl) 148 ml PO NOW STA Stop: 05/18/20 12:47 Last Admin: 05/18/20 13:14 Dose: 148 ml Documented by: [id number] Metoprolol Tartrate (Metoprolol Tartrate 25 Mg Tab) 25 mg PO NOW STA Stop: 05/15/20 08:11 Last Admin: 05/15/20 08:30 Dose: 25 mg Documented by: [id number] Metoprolol Tartrate (Metoprolol Tartrate 25 Mg Tab) 12.5 mg PO BID NATHANIEL Stop: 06/14/20 20:59 Last Admin: 05/16/20 21:24 Dose: 12.5 mg Documented by: [id number] Admin: 05/16/20 09:23 Dose: 12.5 mg Documented by: [id number] Admin: 05/15/20 20:59 Dose: 12.5 mg Documented by: [id number] Metoprolol Tartrate (Metoprolol Tartrate 25 Mg Tab) 25 mg PO BID NATHANIEL Stop: 06/16/20 08:59 Last Admin: 05/18/20 10:14 Dose: 25 mg Documented by: [id number] Admin: 05/17/20 20:13 Dose: 25 mg Documented by: [id number] Admin: 05/17/20 08:59 Dose: 25 mg Documented by: [id number] Miscellaneous (Check Fentanyl Patch Placement) 1 ea N/A QS NATHANIEL Stop: 06/12/20 20:44 Last Admin: 05/15/20 00:23 Dose: 1 ea Documented by: [id number] Admin: 05/14/20 16:39 Dose: 1 ea Documented by: [id number] Admin: 05/14/20 07:55 Dose: 1 ea Documented by: [id number] Admin: 05/13/20 21:12 Dose: 1 ea Documented by: [id number] Miscellaneous (Warfarin~Order Awaiting Action) 1 ea N/A QS [facility] Stop: 06/12/20 20:44 Last Admin: 05/14/20 00:39 Dose: Not Given Documented by: [id number] Admin: 05/13/20 21:12 Dose: 1 ea Documented by: [id number] Morphine Sulfate (Morphine Sulfate 2 Mg/Ml Carp) 2 mg IV NOW STA Stop: 05/15/20 07:46 Last Admin: 05/15/20 08:04 Dose: 2 mg Documented by: [id number] Nitroglycerin (Nitroglycerin Sl 0.4 Mg/Tab Tab) 0.4 mg SL PRN PRN PRN Reason: Chest Pain Stop: 06/12/20 23:21 Last Admin: 05/15/20 07:42 Dose: 0.4 mg Documented by: [id number] Admin: 05/15/20 07:22 Dose: 0.4 mg Documented by: [id number] Nitroglycerin (Nitroglycerin Sl 0.4 Mg/Tab Tab) Confirm Administered Dose 0.4 mg .ROUTE .STK-MED ONE Stop: 05/13/20 23:26 Last Admin: 05/13/20 23:26 Dose: 0.4 mg Documented by: [id number] Nitroglycerin (Nitroglycerin 2% Ointment 30gm Tube) 0.5 inch EXT ONE ONE Stop: 05/15/20 08:29 Last Admin: 05/15/20 09:59 Dose: 0.5 inch Documented by: [id number] Potassium Chloride (Potassium Chloride 20 Meq Tabcr) 20 meq PO NOW STA Stop: 05/16/20 09:48 Last Admin: 05/16/20 11:25 Dose: 20 meq Documented by: [id number] Sennosides (Senna 8.6 Mg Tab) 8.6 mg PO BID PRN PRN Reason: Constipation Last Admin: 05/16/20 17:08 Dose: 8.6 mg Documented by: [id number] Admin: 05/15/20 21:41 Dose: 8.6 mg Documented by: [id number] Warfarin Sodium (Warfarin Sod 1 Mg Tab) 1 mg PO DAILY@1600 NATHANIEL Stop: 06/16/20 15:59 Last Admin: 05/17/20 15:39 Dose: 1 mg Documented by: [id number] Critical Care Time I have personally spent greater than 30 minutes of critical care time in the direct management of this patient. This includes bedside care, interpretation of diagnostic studies, and testing, discussion with consultants, patient, and family members, and other required patient management activities. This 30 minutes is in excess of all separately billable procedures. Medical Decision Making Differential Diagnosis Appendicitis, ovarian cyst, ovarian torsion, ectopic , TOA, PID, infections, diverticulitis, UTI, obstruction, mesenteric ischemia, aortic pathology, inflammatory bowel disease, renal colic, PUD, pancreatitis, biliary pathology, hernia, volvulus, constipation, as well as other pathologies. Medical Records Attestation: I reviewed the patient's medical records. Home Medications Current Medication List: was personally reviewed by me Laboratory Data Attestation: I reviewed the patient's lab results. Result diagrams: 05/18/20 06:34 05/18/20 06:34 Lab Results 05/13/20 05/13/20 05/13/20 Range/Units 15:40 15:40 16:28 WBC 10.83 H (4.8-10.8) K/uL RBC 3.12 L (4.2-5.4) M/uL Hgb 9.9 L (12.0-16.0) g/dL Hct 30.8 L (37-47) % MCV 98.7 (80-100) fL MCH 31.7 (25-34) pg MCHC 32.1 (32-36) g/dL RDW Std Deviation 46.3 (36.4-46.3) fL RDW Coeff of Glilian 12.8 (11.5-14.5) % Plt Count 244 (130-400) K/uL MPV 10.5 H (7.4-10.4) fL Immature Gran % (Auto) 0.3 % Neut % (Auto) 84.7 % Lymph % (Auto) 4.3 % Yell % (Auto) 9.9 % Eos % (Auto) 0.7 % Baso % (Auto) 0.1 % Neut # (Auto) 9.17 H (1.4-6.5) K/uL Lymph # (Auto) 0.47 L (1.2-3.4) K/uL Yell # (Auto) 1.07 H (0.11-0.59) K/uL Eos # (Auto) 0.08 (0-0.5) K/uL Baso # (Auto) 0.01 (0-0.2) K/uL Immature Gran # (Auto) 0.03 H (0.00-0.02) K/uL Sodium 134 L (136-145) mmol/L Potassium 4.8 (3.5-5.1) mmol/L Chloride 98 (98-107) mmol/L Carbon Dioxide 28 (21-32) mmol/L Anion Gap 8.0 (3-11) BUN 19 H (7-18) mg/dl Creatinine 1.53 H (0.6-1.2) mg/dl Est Cr Clr Drug Dosing 29.9 ml/min Est GFR ( Amer) 37.1 Est GFR (Non-Af Amer) 32.0 BUN/Creatinine Ratio 12.4 (10-20) Glucose 144 H (70-99) mg/dl Lactate (0.4-2.0) mmol/L Calcium 9.7 (8.5-10.1) mg/dl Total Bilirubin 0.4 (0.2-1) mg/dl AST 15 (15-37) U/L ALT 22 (12-78) U/L Alkaline Phosphatase 59 (45-117) U/L Total Creatine Kinase 58 (26-192) U/L Troponin I < 0.015 (0-0.045) ng/ml NT-Pro-B Natriuret Pep 1946 H (0-1800) pg/ml Total Protein 7.5 (6.4-8.2) gm/dl Albumin 3.2 L (3.4-5.0) gm/dl Globulin 4.3 H (2.5-4.0) gm/dl Albumin/Globulin Ratio 0.7 L (0.9-2) TSH 4.800 H (0.300-4.500) uIu/ml Free T4 1.42 (0.8-1.6) ng/dl Urine Color Yellow Urine Appearance Cloudy A (Clear) Urine pH 7.0 (4.5-7.5) Ur Specific [place] 1.016 (1.000-1.030) Urine Protein 1+ H (Negative) Urine Glucose (UA) Negative (Negative) Urine Ketones Negative (Negative) Urine Blood 2+ H (Negative) Urine Nitrite Positive A (Negative) Urine Bilirubin Negative (Negative) Urine Urobilinogen Negative (Negative) Ur Leukocyte Esterase 2+ H (Negative) Urine WBC (Auto) >30 H (0-5) /hpf Urine RBC (Auto) 10-30 H (0-4) /hpf U Hyaline Cast (Auto) 1-5 (0-5) /lpf U Epithel Cells (Auto) 0-5 (0-5) /lpf Urine Bacteria (Auto) 4+ H (Negative) 05/13/20 Range/Units 16:47 WBC (4.8-10.8) K/uL RBC (4.2-5.4) M/uL Hgb (12.0-16.0) g/dL Hct (37-47) % MCV (80-100) fL MCH (25-34) pg MCHC (32-36) g/dL RDW Std Deviation (36.4-46.3) fL RDW Coeff of Gillian (11.5-14.5) % Plt Count (130-400) K/uL MPV (7.4-10.4) fL Immature Gran % (Auto) % Neut % (Auto) % Lymph % (Auto) % Yell % (Auto) % Eos % (Auto) % Baso % (Auto) % Neut # (Auto) (1.4-6.5) K/uL Lymph # (Auto) (1.2-3.4) K/uL Yell # (Auto) (0.11-0.59) K/uL Eos # (Auto) (0-0.5) K/uL Baso # (Auto) (0-0.2) K/uL Immature Gran # (Auto) (0.00-0.02) K/uL Sodium (136-145) mmol/L Potassium (3.5-5.1) mmol/L Chloride (98-107) mmol/L Carbon Dioxide (21-32) mmol/L Anion Gap (3-11) BUN (7-18) mg/dl Creatinine (0.6-1.2) mg/dl Est Cr Clr Drug Dosing ml/min Est GFR ( Amer) Est GFR (Non-Af Amer) BUN/Creatinine Ratio (10-20) Glucose (70-99) mg/dl Lactate 1.6 (0.4-2.0) mmol/L Calcium (8.5-10.1) mg/dl Total Bilirubin (0.2-1) mg/dl AST (15-37) U/L ALT (12-78) U/L Alkaline Phosphatase (45-117) U/L Total Creatine Kinase (26-192) U/L Troponin I (0-0.045) ng/ml NT-Pro-B Natriuret Pep (0-1800) pg/ml Total Protein (6.4-8.2) gm/dl Albumin (3.4-5.0) gm/dl Globulin (2.5-4.0) gm/dl Albumin/Globulin Ratio (0.9-2) TSH (0.300-4.500) uIu/ml Free T4 (0.8-1.6) ng/dl Urine Color Urine Appearance (Clear) Urine pH (4.5-7.5) Ur Specific [place] (1.000-1.030) Urine Protein (Negative) Urine Glucose (UA) (Negative) Urine Ketones (Negative) Urine Blood (Negative) Urine Nitrite (Negative) Urine Bilirubin (Negative) Urine Urobilinogen (Negative) Ur Leukocyte Esterase (Negative) Urine WBC (Auto) (0-5) /hpf Urine RBC (Auto) (0-4) /hpf U Hyaline Cast (Auto) (0-5) /lpf U Epithel Cells (Auto) (0-5) /lpf Urine Bacteria (Auto) (Negative) Imaging Data [phone] Report Patient: LAURYN JO Date: 05/13/20 MR#: [id number]: [address] Acct ID:[id number]: Date: 1940[facility] Zip: [place] [id number] Age: 80Location: ED Sex: FRoom/Bed: Att Phy:Diagnosis: WEAKNESS Karlee Phy: Chris Reis-CService Date: 05/13/20 Fam Phy:Interpreting Phy: Kd Collins MD Admit Phy: Ordering Phy: Odell Naqvi MD cc: ~ XR chest 1V portable CLINICAL HISTORY: weakness COMPARISON STUDY: Chest radiograph September 19, 2019. Chest CT June 04, 2015. FINDINGS: Lung volumes are normal. There is no pneumothorax or pleural effusion. Apparent left basilar opacity is likely due to epicardial fat pad and atelectasis. This is unchanged. Note is made of cardiomegaly without evidence for pulmonary edema. There is no consolidation. IMPRESSION: No acute cardiopulmonary findings. ACT 112: Negative or not required by law. Electronically signed by: Kd Collins M.D. 05/13/2020 4:20 PM Dictated: 05/13/201618 Transcribed: 05/13/201618 ECG Data Attestation: I personally reviewed and interpreted this ECG as follows: Rate (beats per minute): 84 Rhythm: + sinus with SA ECG Intervals/blocks: + Normal QT-c (420) ECG Pelican: + Normal ECG ST segments: no ST depression and no ST elevation Comparison ECG Date: from (05/13/2020) Change: the following changes noted (T wave inversions normalized) MDM Narrative Patient was seen and evaluated as above in room . Review was performed of nursing notes and vital signs. I did review pertinent previous visits and patient history. After obtaining a thorough history and physical examination the above work up was performed. This 80-year-old female who presents emergency department tachycardic running a fever. A sepsis work-up was initiated. The patient does have an elevation in her white blood cell count and was started on broad-spectrum antibiotics. I did discuss the case with the hospitalist. An order was placed for continuous cardiac monitoring. The monitor shows a rate of 100 with Normal SInus rhythm. The patient was evaluated during the global COVID-19 pandemic, and that diagnosis was suspected/considered upon their initial presentation. Their evaluation, treatment and testing was consistent with current guidelines for patients who present with complaints or symptoms that may be related to COVID- 19. Impression & Plan Sepsis, Urinary tract infection Discharge Plan Visit Data Chief Complaint: Weakness ED Provider: Odell Naqvi Discharge Problem: Sepsis, Urinary tract infection Patient Disposition: Admitted As Inpatient Discharge Instructions Interventions: ED Discharge Assessment Last Done: 05/13/20 20:00 Discharge Problem: Sepsis Qualifiers: Sepsis type: sepsis due to unspecified organism Sepsis acute organ dysfunction status: unspecified Qualified Code(s): A41.9 - Sepsis, unspecified organism Urinary tract infection Qualifiers: Urinary tract infection type: site unspecified Hematuria presence: without hematuria Qualified Code(s): N39.0 - Urinary tract infection, site not specified
[2020-05-16 05:54] LABS: Hematocrit (blood only) 27.4 % (37-47); Hemoglobin 9.1 g/dL (12.0-16.0); Mean Corpuscular Hemoglobin 32.2 pg (25-34); Mean Corpuscular Hgb Conc 33.2 g/dL (32-36); Mean Corpuscular Volume 96.8 fL (80-100); Mean Platelet Volume 10.5 fL (7.4-10.4); Platelet Count 203 K/uL (130-400); RDW Coefficient of Variation 12.7 % (11.5-14.5); RDW Standard Deviation 44.8 fL (36.4-46.3); Red Blood Count 2.83 M/uL (4.2-5.4); White Blood Count 8.11 K/uL (4.8-10.8)
[2020-05-16] MEDS ORDERED: 0.2 MICRON FILTER SET 1 EA IV ONE (06:01)
[2020-05-16] MEDS ORDERED: AMIODARONE IV BOLUS & DRIP IV STA (06:01)
[2020-05-16] MEDS ORDERED: STAT IV Infusion **Titration per Protocol STA (06:01)
[2020-05-16] MEDS ORDERED: AMIODARONE / D5W 150 MG/100 ML BAG IV STA (06:01)
--- NOTE | 2020-05-16 06:08 | Communication Note ---
Date of Service: May 16, 2020 Pt reverted to AF at about 2:30 am. Per my discussion with her nurse , she is resting comfortably with ventricular rate of 110 bpm at present. Will start amiodarone infusion as rate / rhythm control is vital to minimize ongoing ischemia. Interaction between amiodarone and carbamazeinel noted. Will proceed with caution, hopefully only for short term course.
[2020-05-16] MEDS ORDERED: AMIODARONE / D5W 360 MG/200 ML BAG IV ONE (06:15)
[2020-05-16 06:18] LABS: INR 1.2 (0.9-1.1); Prothrombin Time 12.5 Seconds (9.0-12.0)
[2020-05-16 06:22] LABS: Albumin Level 2.4 gm/dl (3.4-5.0); BUN Creatinine Ratio 14.1 (10-20); Calcium 8.8 mg/dl (8.5-10.1); Creatinine Clr Calc Pharmacy 28.5 ml/min; Est GFR (African American) 33.1; Est GFR (Non-African American) 28.6; Potassium 3.6 mmol/L (3.5-5.1)
[2020-05-16 06:25] LABS: Albumin Globulin Ratio 0.6 (0.9-2); Bilirubin,Total 0.5 mg/dl (0.2-1); Total Protein 6.4 gm/dl (6.4-8.2)
[2020-05-16] MEDS: LEVOTHYROXINE SODIUM 100 MCG TABLET PO SCH (06:43)
[2020-05-16] MEDS: HEPARIN SODIUM/DEXTROSE 25,000 UNITS/500 ML BAG IV SCH (06:43)
[2020-05-16 07:06] LABS: Partial Thromboplastin Time > 139.0 Seconds (21.0-31.0)
[2020-05-16 07:08] LABS: Partial Thromboplastin Ratio > 5.0
[2020-05-16 07:10] LABS: Partial Thromboplastin Time > 139.0 Seconds (21.0-31.0)
[2020-05-16] MEDS: INSULIN ASPART 100 UNITS/ML 3 ML PEN SC SCH ×4 (08:00→21:26)
[2020-05-16] MEDS: CHECK FENTANYL PATCH PLACEMENT SCH ×3 (08:06→23:42)
[2020-05-16 08:16] LABS: Partial Thromboplastin Ratio > 5.0
[2020-05-16 08:18] LABS: Partial Thromboplastin Time > 139.0 Seconds (21.0-31.0)
[2020-05-16] MEDS ORDERED: INSULIN GLARGINE SOLOSTAR 100 UNITS/ML 3 ML PEN SC SCH (09:00)
[2020-05-16] MEDS: ROSUVASTATIN CALCIUM 5 MG TAB PO SCH (09:22)
[2020-05-16] MEDS: ONDANSETRON 4 MG OD TAB PO SCH (09:22)
[2020-05-16] MEDS: ISOSORBIDE MONO EXTENDED REL 60 MG TABCR PO SCH (09:22)
[2020-05-16] MEDS: GABAPENTIN 800 MG TAB PO SCH ×3 (09:22→21:23)
[2020-05-16] MEDS: ASPIRIN 81 MG ECTAB PO SCH (09:23)
[2020-05-16] MEDS: FOLIC ACID 400 MCG TAB PO SCH (09:23)
[2020-05-16] MEDS: METOPROLOL TARTRATE 25 MG TAB PO SCH ×2 (09:23→21:24)
[2020-05-16] MEDS: carBAMazepine 200 MG TABLET PO SCH (09:24)
[2020-05-16 09:25] LABS: Partial Thromboplastin Ratio 3.3
[2020-05-16 09:30] LABS: Partial Thromboplastin Time 90.9 Seconds (21.0-31.0)
[2020-05-16] MEDS ORDERED: POTASSIUM CHLORIDE 20 MEQ TABCR PO STA (09:47)
[2020-05-16] MEDS ORDERED: FUROSEMIDE 40 MG in SYRINGE 0 ML IV ONE (10:00)
--- NOTE | 2020-05-16 10:00 | Cardiology Progress Note ---
Date of Service May 16, 2020 Assessment & Plan (1) Acute on chronic diastolic heart failure: (2) Paroxysmal atrial fibrillation: (3) NSTEMI (non-ST elevated myocardial infarction): (4) Septicemia: (5) Acute on chronic renal failure: (6) Right ureteral stone: (7) Urinary tract infection: I had a long discussion with the patient and her daughter at bedside regarding her complex medical and cardiovascular status. I suspect her elevated troponin is related to atrial fibrillation and rapid ventricular response (demand ischemia), however, plaque rupture event not completely excluded. Recommend resting 2D transthoracic echocardiogram for further evaluation of LV systolic function and wall motion. She is currently asymptomatic without anginal symptoms at rest. Continue IV heparin infusion and single antiplatelet therapy at this time. We discussed potential invasive approach including diagnostic cardiac catheterization with intervention if indicated. Given her mildly progressive renal dysfunction, lack of symptoms currently, lack of evidence of ST elevation, I believe risk outweighs benefit of coronary angiography at this time. The potential need for dialysis due to contrast-induced nephropathy discussed. Patient states she would refuse dialysis at any point. Continue conservative medical management with consideration for invasive approach if clinical cardiovascular status deteriorates. X-ray performed 05/15/2020 demonstrates pulmonary vascular congestion with evidence of rales on examination. Recommend additional 40 mg IV Lasix today. Continue to follow fluid balance, daily weight, GFR, electrolytes. Recommend additional 20 mEq of oral potassium chloride today. In regard to atrial fibrillation, heart rate has improved slightly and she remains asymptomatic. Continue IV amiodarone infusion and oral beta-silvia therapy. Propranolol transition to metoprolol tartrate this admission. All questions answered to the satisfaction of both the patient and her daughter. Patient diet will be restarted this morning. I will continue to follow closely during hospitalization. Admission and Anticipated Discharge Date Admission Date: May 13, 2020 Subjective Patient seen and examined at the bedside. Converted to atrial fibrillation at approximately 2:45 AM. Heart rate ranging from 100 to 120 bpm overnight. Patient denies chest pain or palpitations. No recurrent chest heaviness or shortness of breath. Lying supine without conversational dyspnea. Fluid balance -1.1 L over the past 24 hours. Creatinine trending upward slightly. Repeat ECG this morning confirms presence of atrial fibrillation with rapid ventricular response. Daughter is present at bedside. She voices concern regarding potential coronary artery blockages. IV heparin on hold due to elevated APTT this morning. Intravenous amiodarone initiated overnight with mild improvement of rate control. Propranolol transition to metoprolol during hospitalization. Lisinopril and hydrochlorothiazide on hold currently. Review of Systems Review of Systems: All systems reviewed & are unremarkable except as noted in HPI & below Patient is blind. Mild hearing impairment. Physical Exam Constitutional: + obese; no acute distress Respiratory: no respiratory distress, no labored breathing, no retractions and does not use accessory muscles Auscultation: + rales (Bases bilaterally.); no rhonchi and no wheezes Cardiovascular: Rate/Rhythm: + tachycardic and + irregularly irregular Heart Sounds: normal S1 and normal S2; no murmur Vessels: + JVD (Difficult to assess due to body habitus.) and femoral pulses present; no carotid bruit and + radial pulses abnormal Extremities: no edema Gastrointestinal (Abdomen): Inspection/Auscultation: abdomen normal to inspection and normal bowel sounds; abdomen not distended Percussion/Palpation: abdomen soft; abdomen nontender, no guarding and abdomen not rigid Skin: no rashes, warm and dry Neurologic: moves all extremities; no focal motor deficits Blind. Psychiatric: A+Ox3, euthymic affect Results & Data ([facility]) Vital Signs (Past 12 Hours) Vital Signs Temp Pulse Resp BP Pulse Ox 05/16/20 08:07 36.8 C 100 H 18 90/52 L 98 05/16/20 04:57 36.4 C L 109 H 18 95/70 L 100 05/16/20 02:59 37.1 C 130 H 16 132/89 95 05/16/20 00:08 37.8 C H 87 18 131/72 98 (1) Urinary tract infection Hematuria presence: without hematuria Urinary tract infection type: site unspecified Qualified Code(s): N39.0 - Urinary tract infection, site not specified
[2020-05-16] MEDS: AMIODARONE / D5W 360 MG/200 ML BAG IV SCH (12:21)
--- NOTE | 2020-05-16 12:39 | Urology Progress Note ---
Date of Service May 16, 2020 Assessment & Plan (1) Kidney stone on right side: (2) Sepsis: (3) Right ureteral stone: antibx for 2 weeks at discharge guzman may be dced per the hospitalist service kub when able to get one downstairs Admission and Anticipated Discharge Date Admission Date: May 13, 2020 Subjective pt appears to have had an CA yesterday . She says she feels pressure in bladder but wants guzman because otherwise she wouold wet the bed . Discussed with cardiology and the hospitalist . Would discharge on appropriate antibiotic ( not macrobid)for at least 2 weeks and then macrodantin 50 mg bid . Will get kub to see if stone visible . Cardiology not sure if pt will need cath . She is poor operative candidate and if cant be cleared for anesthesia would d/c stent after 4 to 6 weeks to see if stone would pass spontaneously Results & Data ([facility]) Vital Signs (Past 12 Hours) Vital Signs Temp Pulse Resp BP Pulse Ox 05/16/20 12:00 37.0 C 94 H 16 104/60 99 05/16/20 08:07 36.8 C 100 H 18 90/52 L 98 05/16/20 04:57 36.4 C L 109 H 18 95/70 L 100 05/16/20 02:59 37.1 C 130 H 16 132/89 95 PG Care Time/CCT Total # of Minutes Spent Total Time Spent with Patient: Total time spent is greater than 50% in coordination of care (as documented) at patient's floor/unit and/or counseling patient: Coding Level of Care Code 31206 Subseq Hosp Care Lvl 3 Diagnoses Kidney stone on right side N20.0 Sepsis A41.9 Sepsis type: sepsis due to unspecified organism Sepsis acute organ dysfunction status: unspecified Right ureteral stone N20.1 (1) Sepsis Sepsis type: sepsis due to unspecified organism Sepsis acute organ dysfunction status: unspecified Qualified Code(s): A41.9 - Sepsis, unspecified organism
--- NOTE | 2020-05-16 12:46 | Electrocardiogram Report ---
Test Reason : Blood Pressure : / mmHG Vent. Rate : 119 BPM Atrial Rate : 081 BPM P-R Int : 000 ms QRS Dur : 084 ms QT Int : 378 ms P-R-T Axes : 000 056 237 degrees QTc Int : 531 ms Atrial fibrillation with rapid ventricular response T wave abnormality, consider inferolateral ischemia Prolonged QT Abnormal ECG When compared with ECG of 15-MAY-2020 11:54, Atrial fibrillation has replaced Sinus rhythm Vent. rate has increased BY 40 BPM T wave inversion now evident in Inferior leads Confirmed by Ashwin Humphries ([id number]) on 05/16/2020 12:45:58 PM Referred By: REFERRED SELF Confirmed By:Franco Humphries
[2020-05-16] MEDS: cefTRIAXone SODIUM 2,000 MG in DEXTROSE 5% 50 ML IV SCH (15:31)
[2020-05-16 16:01] LABS: Partial Thromboplastin Ratio 4.2
[2020-05-16 16:13] LABS: Partial Thromboplastin Time 117.1 Seconds (21.0-31.0)
[2020-05-16] MEDS: SENNA 8.6 MG TAB PO PRN (17:08)
--- NOTE | 2020-05-16 20:50 | Hospitalist Progress Note ---
Date of Service May 16, 2020 Assessment & Plan (1) Acute and chronic respiratory failure with hypoxia: Acute resp failure AM of 05/15 2nd to NSTEMI, rapid a.fib, and acute/chronic diastolic CHF. Marked improvement. O2 sats stable on home O2 amount today. Distress resolved. Has diuresed well since yesterday am. Chronic respiratory failure 2nd to ILD, on home NC O2. (2) NSTEMI (non-ST elevated myocardial infarction): EKG changes, symptoms, and initial troponin of 1 in the setting of known, long-standing CAD c/w NSTEMI. Peak troponin 7.9 with downtrending seen. Remains on heparin infusion. Remains on aspirin, statin, imdur, metoprolol 12.5mg BID. LDL this am 25 on lipids check. After patient converted to NSR yesterday afternoon repeat EKG showed anterolateral T wave inversions. Concern is that previously stented L Cx is culprit. Patient had been having frequent episodes of angina requiring SL nitro at home over the last 3-4 weeks. After much discussion - in light of bacteremia, recent ureteral stent placement, poor kidney function, numerous comorbidities, decompensated CHF, etc -- cardiac cath deferred at this time. Risks felt > benefits. Medically manage at this time. Control a.fib. (3) Paroxysmal atrial fibrillation: Recurrent rapid a.fib overnight. Amiodarone infusion started. Remains on heparin drip. INR had been reversed earlier this stay due to kidney stone requiring urological intervention. Remains on low-dose beta silvia. Rates modestly improved this am s/p amio initiation. Follow. Will need to resume coumadin in the near-future if procedures are not planned. (4) Acute on chronic diastolic heart failure: Improving. Additional IV lasix ordered by cardiology this am. Repeat labs and exam in am. holding PO lasix and HCTZ. Cont BB. repeat echo pending (ordered by cardiology). (5) Septicemia: 2nd to UTI in setting of right-sided kidney stone. blood cultures from admission along with urine cx with e.coli, quinolone resistant. remains on cefepime - downgrade to rocephin. blood cx's repeat from 05/15 thus far negative. when ready for PO abx transition - omnicef? other? (6) Kidney stone on right side: POD #2 s/p right-sided ureteral stent placement by Dr Salvador - appreciate his assistance. Definitive stone management in the future - timing uncertain? Dr Salvador feels she is poor candidate for lithotripsy. Will need to be decided down the line. treat UTI/bacteremia and cardiac issues. (7) Urinary tract infection: complicated by obstructing kidney stone on right and septicemia. 2nd to e.coli. see above. (8) Essential tremor: noted h/o Parkisonian features was on inderal for such needs metoprolol for PAF rate control in [place] of inderal (9) Lumbosacral radiculopathy: (10) Cervical radiculopathy: (11) Legally blind: (12) CKD (chronic kidney disease), stage III: baseline Cr about 1.3 to 1.5 Cr slightly higher today BMP am (13) Multiple sclerosis: noted PT/OT when able (14) History of DVT (deep vein thrombosis): on coumadin INR was markedly supratherapeutic at admission s/p vit K for cystoscopy with stent placement INR now <2 heparin drip initiated for PAF, NSTEMI, and h/o DVT resume coumadin in near future (15) DM type 2 (diabetes mellitus, type 2): novolog SSI BSGs elevated again today increase lantus to BID dosing adjust novolog again (16) Hypertension: cont home meds but hold HCTZ see changes above in beta silvia, etc (17) Interstitial lung disease: likely cause of chronic hypoxic resp failure (18) CAD (coronary artery disease): see discussion above in "NSTEMI" (19) History of recent fall: (20) Hypothyroidism: TSH scantly elevated on 05/13/20 leave levothyroxine dose as is for now (21) Hyponatremia: 2nd diuresis with lasix repeat BMP am daughter updated by phone again today Admission and Anticipated Discharge Date Admission Date: May 13, 2020 Subjective patient converted back to rapid a.fib overnight; night resident contacted, and amiodarone infusion was started. (was a.fib yesterday AM, then converted to NSR by mid-day yesterday) patient denies any new chest pain episodes, back pain or abdominal pain no dyspnea no orthopnea this am eating fine feels better than yesterday she is anxious -- she and her daughter spoke with cardiology this am; cath def erred; felt too risky including risk of contrast nephropathy thus cath not planned for today Review of Systems Constitutional: no fever and no chills Respiratory: no cough Cardiovascular: no chest pain Gastrointestinal: no abdominal pain, no nausea and no vomiting Physical Exam Constitutional: + ill appearing and + frail appearing; no acute distress and no altered mental status ENMT: external ear and nose normal, oropharynx normal Respiratory: no respiratory distress Auscultation: + crackles (Minimal bases); no wheezes Cardiovascular: Rate/Rhythm: + tachycardic and + irregularly irregular Heart Sounds: normal S1 and normal S2; no murmur Vessels: + JVD, posterior tibial pulses present and dorsalis pedis pulses present Extremities: no edema Gastrointestinal (Abdomen): Inspection/Auscultation: normal bowel sounds; abdomen not distended Percussion/Palpation: abdomen soft; abdomen nontender and no hepatosplenomegaly Psychiatric: Orientation: alert and oriented x 3 Affect: + anxious affect Results & Data Results & Data ([facility]) Vital Signs (Past 12 Hours) Vital Signs Temp Pulse Resp BP Pulse Ox 05/16/20 19:32 36.9 C 103 H 18 111/58 L 97 05/16/20 16:05 36.6 C 100 H 18 107/73 97 05/16/20 12:00 37.0 C 94 H 16 104/60 99 Laboratory Results Laboratory Results - last 24 hr 05/16/20 05/16/20 05/16/20 05:18 05:18 05:18 WBC 8.11 RBC 2.83 L Hgb 9.1 L Hct 27.4 L MCV 96.8 MCH 32.2 MCHC 33.2 RDW Std Deviation 44.8 RDW Coeff of Gillian 12.7 Plt Count 203 MPV 10.5 H PT 12.5 H INR 1.2 H APTT > 139.0 H* PTT Ratio 5.0 Sodium 131 L Potassium 3.6 Chloride 95 L Carbon Dioxide 30 Anion Gap 6.0 BUN 24 H Creatinine 1.68 H Est Cr Clr Drug Dosing 28.5 Est GFR ( Amer) 33.1 Est GFR (Non-Af Amer) 28.6 BUN/Creatinine Ratio 14.1 Glucose 183 H POC Glucose Calcium 8.8 Total Bilirubin 0.5 AST 43 H ALT 26 Alkaline Phosphatase 45 Total Protein 6.4 Albumin 2.4 L Globulin 4.0 Albumin/Globulin Ratio 0.6 L Triglycerides 84 Cholesterol 108 LDL Cholesterol, Calc 25 VLDL Cholesterol, Calc 17 HDL Cholesterol 66 Cholesterol/HDL Ratio 2 05/16/20 05/16/20 05/16/20 06:28 07:30 07:49 WBC RBC Hgb Hct MCV MCH MCHC RDW Std Deviation RDW Coeff of Gillian Plt Count MPV PT INR APTT > 139.0 H* > 139.0 H* PTT Ratio > 5.0 > 5.0 Sodium Potassium Chloride Carbon Dioxide Anion Gap BUN Creatinine Est Cr Clr Drug Dosing Est GFR ( Amer) Est GFR (Non-Af Amer) BUN/Creatinine Ratio Glucose POC Glucose 228 H Calcium Total Bilirubin AST ALT Alkaline Phosphatase Total Protein Albumin Globulin Albumin/Globulin Ratio Triglycerides Cholesterol LDL Cholesterol, Calc VLDL Cholesterol, Calc HDL Cholesterol Cholesterol/HDL Ratio 05/16/20 05/16/20 05/16/20 08:45 11:35 15:29 WBC RBC Hgb Hct MCV MCH MCHC RDW Std Deviation RDW Coeff of Gillian Plt Count MPV PT INR APTT 90.9 H* 117.1 H* PTT Ratio 3.3 4.2 Sodium Potassium Chloride Carbon Dioxide Anion Gap BUN Creatinine Est Cr Clr Drug Dosing Est GFR ( Amer) Est GFR (Non-Af Amer) BUN/Creatinine Ratio Glucose POC Glucose 261 H Calcium Total Bilirubin AST ALT Alkaline Phosphatase Total Protein Albumin Globulin Albumin/Globulin Ratio Triglycerides Cholesterol LDL Cholesterol, Calc VLDL Cholesterol, Calc HDL Cholesterol Cholesterol/HDL Ratio 05/16/20 16:45 WBC RBC Hgb Hct MCV MCH MCHC RDW Std Deviation RDW Coeff of Gillian Plt Count MPV PT INR APTT PTT Ratio Sodium Potassium Chloride Carbon Dioxide Anion Gap BUN Creatinine Est Cr Clr Drug Dosing Est GFR ( Amer) Est GFR (Non-Af Amer) BUN/Creatinine Ratio Glucose POC Glucose 272 H Calcium Total Bilirubin AST ALT Alkaline Phosphatase Total Protein Albumin Globulin Albumin/Globulin Ratio Triglycerides Cholesterol LDL Cholesterol, Calc VLDL Cholesterol, Calc HDL Cholesterol Cholesterol/HDL Ratio PG Care Time/CCT Total # of Minutes Spent Total Time Spent with Patient: Total time spent is greater than 50% in coordination of care (as documented) at patient's floor/unit and/or counseling patient: Coding Level of Care Code 65090 Subseq Hosp Care Lvl 3 Diagnoses Acute and chronic respiratory failure with hypoxia J96.21 NSTEMI (non-ST elevated myocardial infarction) I21.4 Paroxysmal atrial fibrillation I48.0 Acute on chronic diastolic heart failure I50.33 Septicemia A41.9 Kidney stone on right side N20.0 Urinary tract infection N39.0 Hematuria presence: without hematuria Urinary tract infection type: site unspecified Essential tremor G25.0 Lumbosacral radiculopathy M54.17 Cervical radiculopathy M54.12 Legally blind H54.8 CKD (chronic kidney disease), stage III N18.3 Multiple sclerosis G35 History of DVT (deep vein thrombosis) Z86.718 DM type 2 (diabetes mellitus, type 2) E11.69 Diabetes mellitus complication status: with other specified complication Diabetes mellitus technician terminal and repeater insulin use: without technician terminal and repeater use Hypertension I10 Hypertension type: essential hypertension Interstitial lung disease J84.9 CAD (coronary artery disease) I25.119 Associated angina: with unspecified angina Coronary Disease-Associated Artery/Lesion type: [place] artery [place] vs. transplanted heart: [place] heart History of recent fall Z91.81 Hypothyroidism E03.9 Hypothyroidism type: acquired Hyponatremia E87.1 (1) Urinary tract infection Hematuria presence: without hematuria Urinary tract infection type: site unspecified Qualified Code(s): N39.0 - Urinary tract infection, site not specified (2) DM type 2 (diabetes mellitus, type 2) Diabetes mellitus complication status: with other specified complication Diabetes mellitus [facility] insulin use: without [facility] use Qualified Code(s): E11.69 - Type 2 diabetes mellitus with other specified complication (3) CAD (coronary artery disease) Associated angina: with unspecified angina Coronary Disease-Associated Artery/Lesion type: [place] artery [place] vs. transplanted heart: [place] heart Qualified Code(s): I25.119 - Atherosclerotic heart disease of [place] coronary artery with unspecified angina pectoris (4) Hypothyroidism Hypothyroidism type: acquired Qualified Code(s): E03.9 - Hypothyroidism, unspecified (5) Hypertension Hypertension type: essential hypertension Qualified Code(s): I10 - Essential (primary) hypertension
[2020-05-16] MEDS: INSULIN GLARGINE SOLOSTAR 100 UNITS/ML 3 ML PEN SC SCH (21:24)
[2020-05-17] MEDS: AMIODARONE / D5W 360 MG/200 ML BAG IV SCH ×2 (00:07→12:05)
[2020-05-17 00:20] LABS: Partial Thromboplastin Time 84.6 Seconds (21.0-31.0)
[2020-05-17] MEDS: LEVOTHYROXINE SODIUM 100 MCG TABLET PO SCH (05:58)
[2020-05-17 07:32] LABS: Partial Thromboplastin Ratio 2.2
[2020-05-17 07:35] LABS: Partial Thromboplastin Time 61.4 Seconds (21.0-31.0)
[2020-05-17 07:42] LABS: BUN Creatinine Ratio 14.6 (10-20); Calcium 9.4 mg/dl (8.5-10.1); Creatinine Clr Calc Pharmacy 28.3 ml/min; Est GFR (African American) 33.4; Est GFR (Non-African American) 28.8; Magnesium 1.9 mg/dl (1.8-2.4); Potassium 3.7 mmol/L (3.5-5.1)
[2020-05-17] MEDS: CHECK FENTANYL PATCH PLACEMENT SCH ×3 (08:00→23:31)
[2020-05-17 08:36] LABS: Basophils # (auto) 0.01 K/uL (0-0.2); Basophils % (auto) 0.2 %; Eosinophils # (auto) 0.31 K/uL (0-0.5); Eosinophils % (auto) 5.1 %; Hematocrit (blood only) 26.9 % (37-47); Hemoglobin 9.1 g/dL (12.0-16.0); Immature Granulocytes # (auto) 0.01 K/uL (0.00-0.02); Immature Granulocytes % (auto) 0.2 %; Lymphocytes # (auto) 0.64 K/uL (1.2-3.4); Lymphocytes % (auto) 10.6 %; Mean Corpuscular Hemoglobin 32.6 pg (25-34); Mean Corpuscular Hgb Conc 33.8 g/dL (32-36); Mean Corpuscular Volume 96.4 fL (80-100); Mean Platelet Volume 10.7 fL (7.4-10.4); Monocytes # (auto) 0.98 K/uL (0.11-0.59); Monocytes % (auto) 16.2 %; Neutrophils # (auto) 4.11 K/uL (1.4-6.5); Neutrophils % (auto) 67.7 %; Platelet Count 223 K/uL (130-400); RDW Coefficient of Variation 12.7 % (11.5-14.5); RDW Standard Deviation 44.7 fL (36.4-46.3); Red Blood Count 2.79 M/uL (4.2-5.4); White Blood Count 6.06 K/uL (4.8-10.8)
[2020-05-17] MEDS: ROSUVASTATIN CALCIUM 5 MG TAB PO SCH (08:59)
[2020-05-17] MEDS: ASPIRIN 81 MG ECTAB PO SCH (08:59)
[2020-05-17] MEDS: METOPROLOL TARTRATE 25 MG TAB PO SCH ×2 (08:59→20:13)
[2020-05-17] MEDS: ISOSORBIDE MONO EXTENDED REL 60 MG TABCR PO SCH (09:00)
[2020-05-17] MEDS: carBAMazepine 200 MG TABLET PO SCH (09:00)
[2020-05-17] MEDS: FOLIC ACID 400 MCG TAB PO SCH (09:00)
[2020-05-17] MEDS: GABAPENTIN 800 MG TAB PO SCH ×3 (09:00→20:11)
[2020-05-17] MEDS: INSULIN GLARGINE SOLOSTAR 100 UNITS/ML 3 ML PEN SC SCH ×2 (09:02→20:09)
[2020-05-17] MEDS: INSULIN ASPART 100 UNITS/ML 3 ML PEN SC SCH ×4 (09:02→20:14)
[2020-05-17] MEDS: ONDANSETRON 4 MG OD TAB PO SCH (09:13)
--- NOTE | 2020-05-17 09:55 | Cardiology Progress Note ---
Date of Service May 17, 2020 Assessment & Plan (1) Acute on chronic diastolic heart failure: (2) Paroxysmal atrial fibrillation: (3) NSTEMI (non-ST elevated myocardial infarction): (4) Septicemia: (5) Acute on chronic renal failure: (6) Right ureteral stone: (7) Urinary tract infection: Patient remains in atrial fibrillation with fair rate control at rest. Recommend titration of metoprolol tartrate to 25 mg twice daily. Continue IV amiodarone infusion. Mild hypomagnesemia noted. Recommend 1 g intravenous magnesium today. Patient without recurrent anginal symptoms over the past 48 hours. Troponin peaking at 7.9 and trending downward. 2D transthoracic echocardiogram demonstrating mild left ventricular systolic dysfunction. Creatinine elevated above baseline, however, stable today. Will hold on additional Lasix at this time due to intermittent hypotension and a.m. lightheadedness, likely vasovagal origin. Continue intravenous heparin. Will ultimately require transition to oral anticoagulation, Coumadin prior to discharge. All questions answered to the satisfaction of both the patient and her daughter Admission and Anticipated Discharge Date Admission Date: May 13, 2020 Subjective Patient seen and examined at the bedside. Experienced an episode of lightheadedness after using the commode this morning. Subsequently developed some abdominal discomfort and nausea. No vomiting or diarrhea. Denies chest discomfort or unusual shortness of breath. Remains in atrial fibrillation on telemetry. Heart rate ranging from 90 to 110 bpm. Daughter present at bedside. She offers no additional concerns/complaints at this time. Review of Systems Review of Systems: All systems reviewed & are unremarkable except as noted in HPI & below Physical Exam Constitutional: + obese; no acute distress Respiratory: no respiratory distress, no labored breathing, no retractions and does not use accessory muscles Auscultation: + crackles (Dry crackles at the bases bilateral); no rhonchi and no wheezes Cardiovascular: Rate/Rhythm: + tachycardic and + irregularly irregular Heart Sounds: normal S1 and normal S2; no murmur Vessels: + JVD (Difficult to assess due to body habitus.) and femoral pulses present; no carotid bruit and + radial pulses abnormal Extremities: no edema Gastrointestinal (Abdomen): Inspection/Auscultation: abdomen normal to inspection and normal bowel sounds; abdomen not distended Percussion/Palpation: abdomen soft; abdomen nontender, no guarding and abdomen not rigid Skin: no rashes, warm and dry Neurologic: moves all extremities; no focal motor deficits Psychiatric: A+Ox3, euthymic affect Results & Data ([facility]) Vital Signs (Past 12 Hours) Vital Signs Temp Pulse Pulse Resp BP Pulse Ox 05/17/20 08:07 36.8 C 94 H 18 141/76 H 98 05/17/20 05:21 36.8 C 97 H 18 143/76 H 98 05/16/20 23:53 111 H 05/16/20 23:24 37.2 C 110 H 20 123/89 99 (1) Urinary tract infection Hematuria presence: without hematuria Urinary tract infection type: site unspecified Qualified Code(s): N39.0 - Urinary tract infection, site not specified
[2020-05-17] MEDS ORDERED: MAGNESIUM SULFATE / D5W 1 GM/100 ML BAG IV ONE (10:30)
--- NOTE | 2020-05-17 13:06 | Hospitalist Progress Note ---
Date of Service May 17, 2020 Assessment & Plan (1) Acute and chronic respiratory failure with hypoxia: Acute resp failure AM of 05/15 2nd to NSTEMI, rapid a.fib, and acute/chronic diastolic CHF. - O2 sats stable on home O2 amount today. 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 (2) NSTEMI (non-ST elevated myocardial infarction): EKG changes, symptoms, and initial troponin of 1 in the setting of known, long-standing CAD c/w NSTEMI. After much discussion - in light of bacteremia, recent ureteral stent placement, poor kidney function, numerous comorbidities, decompensated CHF, etc -- cardiac cath deferred at this time. Risks felt > benefits. - Peak troponin 7.9 with downtrending seen. - Remains on heparin infusion x 48 hours (at this point, done with NSTEMI usage, but still in atrial fibrillation). - Continue aspirin, statin, Imdur, & metoprolol (3) Paroxysmal atrial fibrillation: Recurrent rapid a.fib. - Continue amiodarone infusion - Remains on heparin drip as above - Continue beta silvia. - Will need to resume warfarin (4) Acute on chronic diastolic heart failure: Improving. - Holding PO Lasix and HCTZ. - Cont beta-silvia. (5) Urinary tract infection: Complicated by obstructing kidney stone on right and septicemia. Urine culture and blood culture from 05/13 growing E. coli. - Abx x 2 weeks per urology - End date: (6) Kidney stone on right side: S/p right-sided ureteral stent placement by Dr Salvador on 05/15/2020 - appreciate his assistance. - Definitive stone management in the future - Likely remove stent in 3-4 weeks and see if stone can pass spontaneously. (7) CKD (chronic kidney disease), stage III: Baseline Cr about 1.3 to 1.5. - Cr is 1.7 today. This represents a mild change in her renal function, but not as much given the already elevated Cr. - Monitor (8) Essential tremor: Noted. H/o Parkinsonian features. - Needs metoprolol for PAF rate control in lieu of propranolol. (9) Legally blind: Noted. (10) Multiple sclerosis: Noted. Follows with Dr. Pierce. Will inform him of her admission; however, no active neurologic events at present. - PT/OT when able (11) DM type 2 (diabetes mellitus, type 2): A1c of 6.8% this admission. - Continue Lantus 10 units BID - Sliding scale insulin - Post-meals seem the highest point and drive the evening sugar. Will increase meal-time dosing today. (12) Hypertension: BP stable today at 135/70. - Cont home meds but hold HCTZ (13) Interstitial lung disease: Likely cause of chronic hypoxic respiratory failure. (14) Hypothyroidism: TSH scantly elevated on 05/13/20 at 4.8. - Continue levothyroxine 100 mcg PO daily (15) History of DVT (deep vein thrombosis): On warfarin. INR was markedly supratherapeutic at admission s/p vit K for cystoscopy with stent placement. - Heparin drip initiated for PAF, NSTEMI, and h/o DVT Admission and Anticipated Discharge Date Admission Date: May 13, 2020 Subjective Constipation today. She had what sounds like a vasovagal episode while using the commode this morning. Reports no fevers/chills, chest pain, shortness of breath, abdominal pain, nausea, or vomiting. Physical Exam Constitutional: WD/WN, vitals as above Eyes: EOM intact bilaterally; no conjunctival abnormality ENMT: external ear and nose normal, oropharynx normal Neck: trachea midline, no thyromegaly normal visual inspection Respiratory: normal respiratory effort, lungs clear to auscultation no respiratory distress Cardiovascular: RRR, no murmur, no edema Gastrointestinal (Abdomen): Inspection/Auscultation: abdomen normal to inspection; abdomen not distended Musculoskeletal: no cyanosis or clubbing, extremities motor strength 5/5 Skin: no rashes, warm and dry Neurologic: moves all extremities and awake Psychiatric: Orientation: alert, oriented to person and cooperative Results & Data Results & Data ([facility]) Vital Signs (Past 12 Hours) Vital Signs Temp Pulse Resp BP Pulse Ox 05/17/20 12:13 36.8 C 92 H 18 136/68 98 05/17/20 08:07 36.8 C 94 H 18 141/76 H 98 05/17/20 05:21 36.8 C 97 H 18 143/76 H 98 PG Care Time/CCT Total # of Minutes Spent Total Time Spent with Patient: Total time spent is greater than 50% in coordination of care (as documented) at patient's floor/unit and/or counseling patient: Coding Level of Care Code 43902 Subseq Hosp Care Lvl 3 Diagnoses Acute and chronic respiratory failure with hypoxia J96.21 NSTEMI (non-ST elevated myocardial infarction) I21.4 Paroxysmal atrial fibrillation I48.0 Acute on chronic diastolic heart failure I50.33 Urinary tract infection N39.0 Hematuria presence: without hematuria Urinary tract infection type: site unspecified Kidney stone on right side N20.0 CKD (chronic kidney disease), stage III N18.3 Essential tremor G25.0 Legally blind H54.8 Multiple sclerosis G35 DM type 2 (diabetes mellitus, type 2) E11.69 Diabetes mellitus complication status: with other specified complication Diabetes mellitus terminal system operator insulin use: without skilled nursing use Hypertension I10 Hypertension type: essential hypertension Interstitial lung disease J84.9 Hypothyroidism E03.9 Hypothyroidism type: acquired History of DVT (deep vein thrombosis) Z86.718 (1) Urinary tract infection Hematuria presence: without hematuria Urinary tract infection type: site unspecified Qualified Code(s): N39.0 - Urinary tract infection, site not specified (2) DM type 2 (diabetes mellitus, type 2) Diabetes mellitus complication status: with other specified complication Diabetes mellitus terminal system operator insulin use: without terminal system operator use Qualified Code(s): E11.69 - Type 2 diabetes mellitus with other specified complication (3) Hypothyroidism Hypothyroidism type: acquired Qualified Code(s): E03.9 - Hypothyroidism, unspecified (4) Hypertension Hypertension type: essential hypertension Qualified Code(s): I10 - Essential (primary) hypertension
[2020-05-17] MEDS ORDERED: POLYETHYLENE (MIRALAX) 17 GM PACK PO PRN (14:22)
[2020-05-17] MEDS: cefTRIAXone SODIUM 2,000 MG in DEXTROSE 5% 50 ML IV SCH (15:35)
[2020-05-17] MEDS ORDERED: WARFARIN SOD 1 MG TAB PO SCH (16:00)
[2020-05-17] MEDS: HEPARIN SODIUM/DEXTROSE 25,000 UNITS/500 ML BAG IV SCH (20:07)
[2020-05-17] MEDS: LORazepam 0.5 MG TAB PO PRN (20:08)
[2020-05-17] MEDS: DOCUSATE SODIUM/SENNA 50/8.6MG TAB PO SCH (20:08)
[2020-05-18] MEDS: AMIODARONE / D5W 360 MG/200 ML BAG IV SCH ×2 (00:08→12:14)
[2020-05-18] MEDS: fentaNYL 25 MCG/HR TDSY TD SCH (00:09)
[2020-05-18] MEDS: LEVOTHYROXINE SODIUM 100 MCG TABLET PO SCH (05:39)
[2020-05-18 06:55] LABS: Hematocrit (blood only) 26.5 % (37-47); Hemoglobin 8.7 g/dL (12.0-16.0); Mean Corpuscular Hemoglobin 31.6 pg (25-34); Mean Corpuscular Hgb Conc 32.8 g/dL (32-36); Mean Corpuscular Volume 96.4 fL (80-100); Mean Platelet Volume 10.5 fL (7.4-10.4); Platelet Count 229 K/uL (130-400); RDW Coefficient of Variation 12.7 % (11.5-14.5); RDW Standard Deviation 44.3 fL (36.4-46.3); Red Blood Count 2.75 M/uL (4.2-5.4); White Blood Count 6.31 K/uL (4.8-10.8)
[2020-05-18 07:04] LABS: Partial Thromboplastin Ratio 1.2; Partial Thromboplastin Time 32.1 Seconds (21.0-31.0)
[2020-05-18 07:24] LABS: Albumin Level 2.2 gm/dl (3.4-5.0); BUN Creatinine Ratio 14.1 (10-20); Calcium 9.5 mg/dl (8.5-10.1); Creatinine Clr Calc Pharmacy 33.3 ml/min; Est GFR (African American) 40.6
[2020-05-18 07:27] LABS: Albumin Globulin Ratio 0.5 (0.9-2); Bilirubin,Total 0.2 mg/dl (0.2-1); Globulin 4.1 gm/dl (2.5-4.0); Phosphorus 2.5 mg/dl (2.5-4.9); Total Protein 6.3 gm/dl (6.4-8.2)
[2020-05-18] MEDS ORDERED: HEPARIN IV BOLUS 5,000 UNITS in SYRINGE 0 ML IV ONE (07:30)
[2020-05-18] MEDS: HEPARIN SODIUM/DEXTROSE 25,000 UNITS/500 ML BAG IV SCH (08:18)
[2020-05-18 09:07] LABS: Eosinophils # (auto) 0.25 K/uL (0-0.5); Eosinophils % (auto) 3.8 %; Immature Granulocytes # (auto) 0.01 K/uL (0.00-0.02); Immature Granulocytes % (auto) 0.2 %; Lymphocytes % (auto) 10.8 %; Monocytes # (auto) 0.98 K/uL (0.11-0.59); Monocytes % (auto) 15.1 %; Neutrophils # (auto) 4.57 K/uL (1.4-6.5); Neutrophils % (auto) 70.1 %
--- NOTE | 2020-05-18 09:51 | Electrocardiogram Report ---
Test Reason : Blood Pressure : / mmHG Vent. Rate : 082 BPM Atrial Rate : 108 BPM P-R Int : 000 ms QRS Dur : 090 ms QT Int : 426 ms P-R-T Axes : 000 009 179 degrees QTc Int : 497 ms Atrial fibrillation Prolonged QT Abnormal ECG When compared with ECG of 16-MAY-2020 08:51, T wave inversion no longer evident in Inferior leads T wave inversion more evident in Lateral leads Confirmed by Romario Moore [id number] on 05/18/2020 9:50:49 AM Referred By: REFERRED SELF Confirmed By:Romario Moore
[2020-05-18] MEDS: DOCUSATE SODIUM/SENNA 50/8.6MG TAB PO SCH ×2 (10:13→20:39)
[2020-05-18] MEDS: ROSUVASTATIN CALCIUM 5 MG TAB PO SCH (10:14)
[2020-05-18] MEDS: carBAMazepine 200 MG TABLET PO SCH (10:14)
[2020-05-18] MEDS: FOLIC ACID 400 MCG TAB PO SCH (10:14)
[2020-05-18] MEDS: ISOSORBIDE MONO EXTENDED REL 60 MG TABCR PO SCH (10:14)
[2020-05-18] MEDS: METOPROLOL TARTRATE 25 MG TAB PO SCH ×3 (10:14→20:39)
[2020-05-18] MEDS: ASPIRIN 81 MG ECTAB PO SCH (10:14)
[2020-05-18] MEDS: GABAPENTIN 800 MG TAB PO SCH ×3 (10:15→20:38)
[2020-05-18] MEDS: CHECK FENTANYL PATCH PLACEMENT SCH ×2 (10:15→16:07)
[2020-05-18] MEDS: INSULIN GLARGINE SOLOSTAR 100 UNITS/ML 3 ML PEN SC SCH ×2 (10:15→20:38)
[2020-05-18] MEDS: INSULIN ASPART 100 UNITS/ML 3 ML PEN SC SCH ×4 (10:16→20:40)
[2020-05-18] MEDS: ONDANSETRON 4 MG OD TAB PO SCH (10:23)
--- NOTE | 2020-05-18 11:08 | Cardiology Progress Note ---
Date of Service May 18, 2020 Assessment & Plan (1) Paroxysmal atrial fibrillation: (2) NSTEMI (non-ST elevated myocardial infarction): (3) Chronic diastolic heart failure: (4) Septicemia: (5) Acute on chronic renal failure: (6) Right ureteral stone: (7) Urinary tract infection: Titrate metoprolol tartrate to 25 mg 3 times daily. Continue IV amiodarone and heparin infusion. Consider transition to oral amiodarone in a.m. Patient chronically anticoagulated in the outpatient setting due to history of DVT. Respiratory status stable. Creatinine trending downward. Repeat chest x-ray today. Continue conservative medical management of NSTEMI at this time. Management of constipation/nausea as per internal medicine. Repeat blood and urine cultures negative from 05/15 and 05/16. Continue antibiotic therapy per direction of internal medicine. Admission and Anticipated Discharge Date Admission Date: May 13, 2020 Subjective Patient seen and examined the bedside. Complaining of nausea and abdominal discomfort this a.m. She has not had a bowel movement in 7 days. Denies recurrent chest pain or shortness of breath. No palpitations. Positional lightheadedness unchanged. Blood pressure trending upward. Telemetry reveals atrial fibrillation with heart rate averaging 90 to 95 bpm during periods of sleep however heart rates as high as 120 bpm recording during activity and agitation. Review of Systems Review of Systems: All systems reviewed & are unremarkable except as noted in HPI & below Physical Exam Constitutional: + obese; no acute distress Respiratory: no respiratory distress, no labored breathing, no retractions and does not use accessory muscles Auscultation: + crackles (Dry crackles at the bases bilateral); no rhonchi and no wheezes Cardiovascular: Rate/Rhythm: + tachycardic and + irregularly irregular Heart Sounds: normal S1 and normal S2; no murmur Vessels: + JVD (Difficult to assess due to body habitus.) and femoral pulses present; no carotid bruit and + radial pulses abnormal Extremities: no edema Gastrointestinal (Abdomen): Inspection/Auscultation: abdomen normal to inspection and normal bowel sounds; abdomen not distended Percussion/Palpation: abdomen soft; abdomen nontender, no guarding and abdomen not rigid Skin: no rashes, warm and dry Neurologic: moves all extremities; no focal motor deficits Psychiatric: A+Ox3, euthymic affect Results & Data ([facility]) Vital Signs (Past 12 Hours) Vital Signs Temp Pulse Pulse Resp BP Pulse Ox 05/18/20 08:15 36.7 C 109 H 18 148/70 H 95 05/18/20 04:00 36.8 C 112 H 19 121/77 94 05/18/20 00:17 36.6 C 87 18 116/80 97 05/18/20 00:13 91 H (1) Urinary tract infection Hematuria presence: without hematuria Urinary tract infection type: site unspecified Qualified Code(s): N39.0 - Urinary tract infection, site not specified
[2020-05-18] MEDS ORDERED: MAGNESIUM CITRATE 296 ML/BTL PO STA (12:46)
--- NOTE | 2020-05-18 12:46 | Hospitalist Progress Note ---
Date of Service May 18, 2020 Assessment & Plan (1) Acute and chronic respiratory failure with hypoxia: Acute resp failure AM of 05/15 2nd to NSTEMI, rapid a.fib, and acute/chronic diastolic CHF. - O2 sats stable on home O2 amount today. 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 (2) NSTEMI (non-ST elevated myocardial infarction): EKG changes, symptoms, and initial troponin of 1 in the setting of known, long-standing CAD c/w NSTEMI. After much discussion - in light of bacteremia, recent ureteral stent placement, poor kidney function, numerous comorbidities, decompensated CHF, etc -- cardiac cath deferred at this time. Risks felt > benefits. - Peak troponin 7.9 with downtrending seen. - Remains on heparin infusion x 48 hours (at this point, done with NSTEMI usage, but still in atrial fibrillation). - Continue aspirin, statin, Imdur, & metoprolol. (Metop adjusted by Dr. Varner today for better rate control.) (3) Paroxysmal atrial fibrillation: Recurrent rapid a.fib. - Continue amiodarone infusion - Remains on heparin drip as above - Continue beta silvia. Increased to 25 mg PO TID on 05/[address] Varner. - Will need to resume warfarin at some point, but not today. (4) Acute on chronic diastolic heart failure: Improving. - Holding PO Lasix and HCTZ. - Cont beta-silvia. (5) Urinary tract infection: Complicated by obstructing kidney stone on right and septicemia. Urine culture and blood culture from 05/13 growing E. coli. - Abx x 2 weeks per urology - End date: 05/27/2020. (6) Kidney stone on right side: S/p right-sided ureteral stent placement by Dr Salvador on 05/15/2020 - appreciate his assistance. - Definitive stone management in the future - Likely remove stent in 3-4 weeks and see if stone can pass spontaneously. (7) CKD (chronic kidney disease), stage III: Baseline Cr about 1.3 to 1.5. - Cr is 1.4 today. At baseline. - Monitor (8) Essential tremor: Noted. H/o Parkinsonian features. - Needs metoprolol for PAF rate control in lieu of propranolol. (9) Legally blind: Noted. (10) Multiple sclerosis: Noted. Follows with Dr. Pierce. Discussed with him today. Will contact with any needed changes. - PT/OT when able (11) DM type 2 (diabetes mellitus, type 2): A1c of 6.8% this admission. - Continue Lantus 10 units BID - Sliding scale insulin - Post-meals seem the highest point and drive the evening sugar. More stable today after changing meal-time. (12) Hypertension: BP stable today at 135/70. - Cont home meds but hold HCTZ (13) Interstitial lung disease: Likely cause of chronic hypoxic respiratory failure. (14) Hypothyroidism: TSH scantly elevated on 05/13/20 at 4.8. - Continue levothyroxine 100 mcg PO daily (15) History of DVT (deep vein thrombosis): On warfarin at home. INR was markedly supratherapeutic at admission s/p vit K for cystoscopy with stent placement. - Heparin drip initiated for PAF, NSTEMI, and h/o DVT Admission and Anticipated Discharge Date Admission Date: May 13, 2020 Subjective Still having abdominal pain. Reports no fevers/chills, chest pain, shortness of breath, nausea, or vomiting. Physical Exam Constitutional: WD/WN, vitals as above Eyes: EOM intact bilaterally; no conjunctival abnormality ENMT: external ear and nose normal, oropharynx normal Neck: trachea midline, no thyromegaly normal visual inspection Respiratory: normal respiratory effort, lungs clear to auscultation no respiratory distress Cardiovascular: Rate/Rhythm: + tachycardic and + irregularly irregular Heart Sounds: normal S1 and normal S2 Gastrointestinal (Abdomen): Inspection/Auscultation: abdomen normal to inspection; abdomen not distended Musculoskeletal: no cyanosis or clubbing, extremities motor strength 5/5 Skin: no rashes, warm and dry Neurologic: moves all extremities and awake Psychiatric: Orientation: alert, oriented to person and cooperative Results & Data Results & Data ([facility]) Vital Signs (Past 12 Hours) Vital Signs Temp Pulse Pulse Resp BP Pulse Ox 05/18/20 12:23 36.7 C 92 H 18 138/72 05/18/20 11:30 91 H 05/18/20 08:15 36.7 C 109 H 18 148/70 H 95 05/18/20 04:00 36.8 C 112 H 19 121/77 94 PG Care Time/CCT Total # of Minutes Spent Total Time Spent with Patient: Total time spent is greater than 50% in coordination of care (as documented) at patient's floor/unit and/or counseling patient: Coding Level of Care Code 98796 Subseq Hosp Care Lvl 3 Diagnoses Acute and chronic respiratory failure with hypoxia J96.21 NSTEMI (non-ST elevated myocardial infarction) I21.4 Paroxysmal atrial fibrillation I48.0 Acute on chronic diastolic heart failure I50.33 Urinary tract infection N39.0 Urinary tract infection type: site unspecified Hematuria presence: without hematuria Kidney stone on right side N20.0 CKD (chronic kidney disease), stage III N18.3 Essential tremor G25.0 Legally blind H54.8 Multiple sclerosis G35 DM type 2 (diabetes mellitus, type 2) E11.69 Diabetes mellitus keno terminal operator insulin use: without keno terminal operator use Diabetes mellitus complication status: with other specified complication Hypertension I10 Hypertension type: essential hypertension Interstitial lung disease J84.9 Hypothyroidism E03.9 Hypothyroidism type: acquired History of DVT (deep vein thrombosis) Z86.718 (1) Urinary tract infection Urinary tract infection type: site unspecified Hematuria presence: without hematuria Qualified Code(s): N39.0 - Urinary tract infection, site not specified (2) DM type 2 (diabetes mellitus, type 2) Diabetes mellitus keno terminal operator insulin use: without keno terminal operator use Diabetes mellitus complication status: with other specified complication Qualified Code(s): E11.69 - Type 2 diabetes mellitus with other specified complication (3) Hypertension Hypertension type: essential hypertension Qualified Code(s): I10 - Essential (primary) hypertension (4) Hypothyroidism Hypothyroidism type: acquired Qualified Code(s): E03.9 - Hypothyroidism, unsp ecified
[2020-05-18 14:57] LABS: Partial Thromboplastin Ratio 4.1
[2020-05-18 14:58] LABS: Partial Thromboplastin Time 114.2 Seconds (21.0-31.0)
[2020-05-18] MEDS: cefTRIAXone SODIUM 2,000 MG in DEXTROSE 5% 50 ML IV SCH (16:06)
[2020-05-18] MEDS: LORazepam 0.5 MG TAB PO PRN (20:38)
[2020-05-18] MEDS ORDERED: ONDANSETRON INJ 2 MG/ML 2 ML VIAL IV PRN (21:04)
[2020-05-18 22:20] LABS: Partial Thromboplastin Ratio 1.8; Partial Thromboplastin Time 49.5 Seconds (21.0-31.0)
[2020-05-19] MEDS: AMIODARONE / D5W 360 MG/200 ML BAG IV SCH (00:01)
[2020-05-19] MEDS: CHECK FENTANYL PATCH PLACEMENT SCH ×4 (00:01→23:19)
[2020-05-19 04:47] LABS: Hematocrit (blood only) 26.1 % (37-47); Hemoglobin 8.4 g/dL (12.0-16.0); Mean Corpuscular Hemoglobin 31.7 pg (25-34); Mean Corpuscular Hgb Conc 32.2 g/dL (32-36); Mean Corpuscular Volume 98.5 fL (80-100); Mean Platelet Volume 10.4 fL (7.4-10.4); Platelet Count 244 K/uL (130-400); RDW Coefficient of Variation 12.8 % (11.5-14.5); RDW Standard Deviation 45.3 fL (36.4-46.3); Red Blood Count 2.65 M/uL (4.2-5.4); White Blood Count 7.21 K/uL (4.8-10.8)
[2020-05-19 05:02] LABS: BUN Creatinine Ratio 14.9 (10-20); Calcium 8.6 mg/dl (8.5-10.1); Creatinine Clr Calc Pharmacy 34.7 ml/min; Est GFR (African American) 42.8; Est GFR (Non-African American) 36.9; Magnesium 2.3 mg/dl (1.8-2.4); Potassium 3.9 mmol/L (3.5-5.1)
[2020-05-19 05:05] LABS: Partial Thromboplastin Ratio 1.8
[2020-05-19 05:11] LABS: Troponin I 0.485 ng/ml (0-0.045)
[2020-05-19 05:19] LABS: Partial Thromboplastin Time 50.3 Seconds (21.0-31.0)
[2020-05-19] MEDS: LEVOTHYROXINE SODIUM 100 MCG TABLET PO SCH (05:54)
[2020-05-19] MEDS: HEPARIN SODIUM/DEXTROSE 25,000 UNITS/500 ML BAG IV SCH (08:35)
[2020-05-19] MEDS: ISOSORBIDE MONO EXTENDED REL 60 MG TABCR PO SCH (08:38)
[2020-05-19] MEDS: FOLIC ACID 400 MCG TAB PO SCH (08:38)
[2020-05-19] MEDS: ASPIRIN 81 MG ECTAB PO SCH (08:38)
[2020-05-19] MEDS: GABAPENTIN 800 MG TAB PO SCH ×3 (08:38→20:11)
[2020-05-19] MEDS: METOPROLOL TARTRATE 25 MG TAB PO SCH ×3 (08:38→20:10)
[2020-05-19] MEDS: carBAMazepine 200 MG TABLET PO SCH (08:38)
[2020-05-19] MEDS: ROSUVASTATIN CALCIUM 5 MG TAB PO SCH (08:38)
[2020-05-19] MEDS: INSULIN GLARGINE SOLOSTAR 100 UNITS/ML 3 ML PEN SC SCH ×2 (08:39→20:21)
[2020-05-19] MEDS: INSULIN ASPART 100 UNITS/ML 3 ML PEN SC SCH ×4 (08:39→20:22)
[2020-05-19] MEDS: DOCUSATE SODIUM/SENNA 50/8.6MG TAB PO SCH (08:42)
[2020-05-19] MEDS: ONDANSETRON 4 MG OD TAB PO SCH (08:44)
[2020-05-19] MEDS ORDERED: SODIUM CHLORIDE 0.9% 250 ML IV PRN (09:10)
--- NOTE | 2020-05-19 09:15 | Electrocardiogram Report ---
Test Reason : Blood Pressure : / mmHG Vent. Rate : 106 BPM Atrial Rate : 089 BPM P-R Int : 000 ms QRS Dur : 092 ms QT Int : 358 ms P-R-T Axes : 000 048 155 degrees QTc Int : 475 ms Atrial fibrillation with rapid ventricular response Abnormal ECG When compared with ECG of 17-MAY-2020 14:58, No significant change was found Confirmed by Rock Gabriel ([id number]) on 05/19/2020 9:15:27 AM Referred By: REFERRED SELF Confirmed By:Rock Gabriel
[2020-05-19] MEDS ORDERED: [UNRECOGNIZED DRUG - REMARK] IV ONE (09:16)
--- NOTE | 2020-05-19 09:29 | Electrocardiogram Report ---
Test Reason : Blood Pressure : / mmHG Vent. Rate : 098 BPM Atrial Rate : 111 BPM P-R Int : 000 ms QRS Dur : 092 ms QT Int : 394 ms P-R-T Axes : 000 010 172 degrees QTc Int : 503 ms Atrial fibrillation Prolonged QT Abnormal ECG When compared with ECG of 18-MAY-2020 09:58, (unconfirmed) No significant change was found Confirmed by Rock Gabriel ([id number]) on 05/19/2020 9:28:46 AM Referred By: REFERRED SELF Confirmed By:Rock Gabriel
--- NOTE | 2020-05-19 09:31 | Cardiology Progress Note ---
Date of Service May 19, 2020 Assessment & Plan (1) Paroxysmal atrial fibrillation: (2) NSTEMI (non-ST elevated myocardial infarction): (3) Chronic diastolic heart failure: (4) Septicemia: (5) Acute on chronic renal failure: (6) Right ureteral stone: (7) Urinary tract infection: (8) Anemia: Patient remains in rate controlled atrial fibrillation. continue metoprolol 25 mg TID. Stop IV amiodarone and transition to oral amiodarone 400 mg BID for now. Continue IV heparin to coumadin. Patient chronically anticoagulated in the outpatient setting due to history of DVT. Patient with slight decline in Hbg down to 8.4. Given recent NSTEMI, goal hbg around 10. Recommend transfusion of 1 PRBC. Ordered. consent signed. CBC in AM Respiratory status stable. Continue to hold diuretics for now. Monitor volume status closely post transfusion. Low threshold to resume diuretics if needed. Continue conservative medical management of NSTEMI at this time. Her episode of atypical chest pain last evening, likely non cardiac. No acute EKG changes. Troponin stable Management of constipation/nausea as per internal medicine. Constipation and nausea improving with BM last night. Repeat blood and urine cultures remain negative from 05/15 and 05/16. Continue antibiotic therapy per direction of internal medicine. Case discussed with Dr. Varner. Will follow. Admission and Anticipated Discharge Date Admission Date: May 13, 2020 Supervising Physician Co-Signing Physician Notes Patient seen and examined at the bedside. Feeling much better after a bowel movement yesterday. Previously reported nausea has resolved. Episode of epigastric discomfort noted prior to BM. No recurrent chest pain this morning. Fair heart rate control on telemetry. Troponins are not significantly elevated. PE: VSS. Gen: NAD, blind, AAOx3. Heart: Irregular, normal S1 and S2. No murmur appreciated. Lungs: Clear bilateral, no rales, rhonchi, wheeze. Abdomen: Soft, nontender, nondistended. Normal bowel sounds. Extremities: No clubbing, cyanosis, or edema. A/P: Agree with above PA-C history, physical exam, assessment and plan. IV amiodarone discontinued today. Will transition to p.o. amiodarone and continue to monitor telemetry. Patient appears compensated from a heart failure perspective today. Will not administer IV diuretic therapy. 1 unit packed red blood cells ordered due to anemia in the setting of recent NSTEMI, atrial fibrillation, and chronic anticoagulation. Repeat CBC in a.m. Discontinue IV heparin when INR is therapeutic. Subjective Patient resting in bed comfortably. She reported one episode of chest pain last night, however per description, appears to be more epigastric pain. EKG obtained, no acute changes. No elevation in troponin above baseline. Described as sharp/shooting pain. Lasting several seconds at a time. No SOB, diaphoresis, palpitations, dizziness at the time. Shortly after epigastric pain, she had several large BM's. Nausea improved this morning. No melena or hematochezia reported. Currently she is feeling well without complaints. No orthopnea, PND or edema. No SOB or chest pain. No palpitations or dizziness this morning. Review of Systems Review of Systems: All systems reviewed & are unremarkable except as noted in HPI & below Physical Exam Constitutional: WD/WN, vitals as above + obese; no acute distress Eyes: PERRL, conjunctivae normal, anicteric sclerae Neck: normal visual inspection Respiratory: normal respiratory effort, lungs clear to auscultation Auscultation: no rales, no rhonchi and no wheezes Cardiovascular: Rate/Rhythm: + irregularly irregular Heart Sounds: no murmur Vessels: no JVD Extremities: no edema Gastrointestinal (Abdomen): normal bowel sounds, soft, nontender, no hepatosplenomegaly Musculoskeletal: no cyanosis or clubbing, extremities motor strength 5/5 Skin: no rashes, warm and dry Neurologic: PERRL, EOMI, accommodation nl, no face palsy, no dysarthria Psychiatric: A+Ox3, euthymic affect Results & Data ([facility]) Vital Signs (Past 12 Hours) Vital Signs Temp Pulse Pulse Resp BP Pulse Ox 05/19/20 08:23 36.8 C 125 H 20 117/68 97 05/19/20 04:00 36.8 C 93 H 19 120/73 99 05/18/20 23:42 113 H 05/18/20 22:06 99 H 20 108/83 99 Laboratory Results 05/19/20 05/19/20 05/19/20 Range/Units 07:43 04:31 04:31 WBC (4.8-10.8) K/uL RBC (4.2-5.4) M/uL Hgb (12.0-16.0) g/dL Hct (37-47) % MCV (80-100) fL MCH (25-34) pg MCHC (32-36) g/dL RDW Std Deviation (36.4-46.3) fL RDW Coeff of Gillian (11.5-14.5) % Plt Count (130-400) K/uL MPV (7.4-10.4) fL APTT 50.3 H* (21.0-31.0) Seconds PTT Ratio 1.8 Sodium 131 L (136-145) mmol/L Potassium 3.9 (3.5-5.1) mmol/L Chloride 93 L (98-107) mmol/L Carbon Dioxide 34 H (21-32) mmol/L Anion Gap 4.0 (3-11) BUN 20 H (7-18) mg/dl Creatinine 1.36 H (0.6-1.2) mg/dl Est Cr Clr Drug Dosing 34.7 ml/min Est GFR ( Amer) 42.8 Est GFR (Non-Af Amer) 36.9 BUN/Creatinine Ratio 14.9 (10-20) Glucose 168 H (70-99) mg/dl POC Glucose 174 H (70-99) mg/dl Calcium 8.6 (8.5-10.1) mg/dl Magnesium 2.3 (1.8-2.4) mg/dl Troponin I 0.485 H* (0-0.045) ng/ml 05/19/20 05/18/20 05/18/20 Range/Units 04:31 22:41 21:47 WBC 7.21 (4.8-10.8) K/uL RBC 2.65 L (4.2-5.4) M/uL Hgb 8.4 L (12.0-16.0) g/dL Hct 26.1 L (37-47) % MCV 98.5 (80-100) fL MCH 31.7 (25-34) pg MCHC 32.2 (32-36) g/dL RDW Std Deviation 45.3 (36.4-46.3) fL RDW Coeff of Gillian 12.8 (11.5-14.5) % Plt Count 244 (130-400) K/uL MPV 10.4 (7.4-10.4) fL APTT 49.5 H* (21.0-31.0) Seconds PTT Ratio 1.8 Sodium (136-145) mmol/L Potassium (3.5-5.1) mmol/L Chloride (98-107) mmol/L Carbon Dioxide (21-32) mmol/L Anion Gap (3-11) BUN (7-18) mg/dl Creatinine (0.6-1.2) mg/dl Est Cr Clr Drug Dosing ml/min Est GFR ( Amer) Est GFR (Non-Af Amer) BUN/Creatinine Ratio (-20) Glucose (70-99) mg/dl POC Glucose (70-99) mg/dl Calcium (8.5-10.1) mg/dl Magnesium (1.8-2.4) mg/dl Troponin I 0.680 H* (0-0.045) ng/ml 05/18/20 05/18/20 05/18/20 Range/Units 20:37 16:18 14:20 WBC (4.8-10.8) K/uL RBC (4.2-5.4) M/uL Hgb (12.0-16.0) g/dL Hct (37-47) % MCV (80-100) fL MCH (25-34) pg MCHC (32-36) g/dL RDW Std Deviation (36.4-46.3) fL RDW Coeff of Gillian (11.5-14.5) % Plt Count (130-400) K/uL MPV (7.4-10.4) fL APTT 114.2 H* (21.0-31.0) Seconds PTT Ratio 4.1 Sodium (136-145) mmol/L Potassium (3.5-5.1) mmol/L Chloride (98-107) mmol/L Carbon Dioxide (21-32) mmol/L Anion Gap (3-11) BUN (7-18) mg/dl Creatinine (0.6-1.2) mg/dl Est Cr Clr Drug Dosing ml/min Est GFR ( Amer) Est GFR (Non-Af Amer) BUN/Creatinine Ratio (10-20) Glucose (70-99) mg/dl POC Glucose 207 H 183 H (70-99) mg/dl Calcium (8.5-10.1) mg/dl Magnesium (1.8-2.4) mg/dl Troponin I (0-0.045) ng/ml 05/18/20 Range/Units 11:26 WBC (4.8-10.8) K/uL RBC (4.2-5.4) M/uL Hgb (12.0-16.0) g/dL Hct (37-47) % MCV (80-100) fL MCH (25-34) pg MCHC (32-36) g/dL RDW Std Deviation (36.4-46.3) fL RDW Coeff of Gillian (11.5-14.5) % Plt Count (130-400) K/uL MPV (7.4-10.4) fL APTT (21.0-31.0) Seconds PTT Ratio Sodium (136-145) mmol/L Potassium (3.5-5.1) mmol/L Chloride (98-107) mmol/L Carbon Dioxide (21-32) mmol/L Anion Gap (3-11) BUN (7-18) mg/dl Creatinine (0.6-1.2) mg/dl Est Cr Clr Drug Dosing ml/min Est GFR ( Amer) Est GFR (Non-Af Amer) BUN/Creatinine Ratio (10-20) Glucose (70-99) mg/dl POC Glucose 255 H (70-99) mg/dl Calcium (8.5-10.1) mg/dl Magnesium (1.8-2.4) mg/dl Troponin I (0-0.045) ng/ml Diagnostic Findings EKG last evening reviewed: Afib controlled rates. Lateral ST/T wave abnormality, unchanged from prior EKG's Telemetry reviewed: Afib, rates controlled, ranging 70-100 bpm on average Medications Administered Current Inpatient Medications Acetaminophen (Acetaminophen 325 Mg Tab) 650 mg PO Q4H PRN PRN Reason: pain/fever Stop: 06/12/20 20:26 Last Admin: 05/16/20 01:02 Dose: 650 mg Documented by: Acetaminophen (Acetaminophen 325 Mg Tab) 650 mg PO Q6 PRN PRN Reason: Pain Stop: 06/13/20 23:34 Amiodarone HCl (Amiodarone 200 Mg Tab) 400 mg PO BID NATHANIEL Stop: 06/18/20 09:29 Aspirin (Aspirin 81 Mg Ectab) 81 mg PO DAILY [facility] Stop: 06/13/20 08:59 Last Admin: 05/19/20 08:38 Dose: 81 mg Documented by: Buspirone HCl (Buspirone 5 Mg Tab) 10 mg PO BID NATHANIEL Stop: 06/12/20 20:59 Last Admin: 05/19/20 08:38 Dose: 10 mg Documented by: Carbamazepine (Carbamazepine 200 Mg Tablet) 200 mg PO DAILY NATHANIEL Stop: 06/13/20 08:59 Last Admin: 05/19/20 08:38 Dose: 200 mg Documented by: Dextrose (Dextrose 50% 50 Ml Syringe) 25 - 50 ml IV UD PRN; Protocol PRN Reason: Hypoglycemia Protocol Stop: 06/12/20 20:26 Fentanyl (Fentanyl 25 Mcg/Hr Tdsy) 25 mcg TD Q72H NATHANIEL Stop: 05/29/20 00:59 Last Admin: 05/18/20 00:09 Dose: 25 mcg Documented by: Folic Acid (Folic Acid 400 Mcg Tab) 400 mcg PO DAILY NATHANIEL Stop: 06/13/20 08:59 Last Admin: 05/19/20 08:38 Dose: 400 mcg Documented by: Gabapentin (Gabapentin 800 Mg Tab) 800 mg PO TID NATHANIEL Stop: 06/12/20 20:59 Last Admin: 05/19/20 08:38 Dose: 800 mg Documented by: Glucagon (Glucagon For Inj 1 Mg Vial) 1 mg SQ UD PRN; Protocol PRN Reason: Hypoglycemia Protocol Stop: 06/12/20 20:26 Glucose (Glucose 10 Tabs/Tube) 4 - 8 tabs PO UD PRN; Protocol PRN Reason: Hypoglycemia Protocol Stop: 06/12/20 20:26 Glucose (Glucose 40% Gel 15 Gm Tube) 15 - 30 gm PO UD PRN; Protocol PRN Reason: Hypoglycemia Protocol Stop: 06/12/20 20:26 Hydromorphone HCl (Hydromorphone Inj 0.5 Mg/0.5 Ml Syr) 0.25 mg IV Q4H PRN PRN Reason: Pain Stop: 05/28/20 16:38 Last Admin: 05/14/20 17:02 Dose: 0.25 mg Documented by: Heparin Sodium/Dextrose (Heparin Sodium/Dextrose) 25,000 units in 500 mls @ 14 mls/hr IV .Q24H NATHANIEL; Protocol Stop: 06/14/20 09:44 Last Admin: 05/19/20 08:35 Dose: 700 units/hr, 14 mls/hr Documented by: Ceftriaxone Sodium 2,000 mg/ (Dextrose) 70 mls @ 140 mls/hr IV DAILY@1600 [facility] Stop: 05/28/20 15:59 Last Infusion: 05/18/20 16:47 Dose: Infused Documented by: Sodium Chloride (Nss) 250 mls @ 15 mls/hr IV .[id number] PRN PRN Reason: For Transfusion Stop: 05/19/20 19:11 Insulin Aspart (Insulin Aspart 100 Units/Ml 3 Ml Pen) 0 units SC ACHS [facility] Stop: 06/12/20 20:59 Last Admin: 05/19/20 08:39 Dose: 6 units Documented by: Insulin Glargine (Insulin Glargine Solostar 100 Units/Ml 3 Ml Pen) 10 units SC BID [facility] Stop: 06/15/20 20:59 Last Admin: 05/19/20 08:39 Dose: 10 units Documented by: Isosorbide Mononitrate (Isosorbide Jackson Extended Rel 60 Mg Tabcr) 120 mg PO DAILY NATHANIEL Stop: 06/13/20 08:59 Last Admin: 05/19/20 08:38 Dose: 120 mg Documented by: Levothyroxine Sodium (Levothyroxine Sodium 100 Mcg Tablet) 100 mcg PO DAILYBB [facility] Stop: 06/13/20 06:29 Last Admin: 05/19/20 05:54 Dose: 100 mcg Documented by: Lorazepam (Lorazepam 0.5 Mg Tab) 0.5 mg PO DAILY PRN PRN Reason: Anxiety Stop: 06/12/20 20:26 Last Admin: 05/18/20 20:38 Dose: 0.5 mg Documented by: Metoprolol Tartrate (Metoprolol Tartrate 25 Mg Tab) 25 mg PO TID [facility] Stop: 06/17/20 13:59 Last Admin: 05/19/20 08:38 Dose: 25 mg Documented by: Miscellaneous (Carbohydrates For Hypoglycemia ) 15 - 30 gm PO UD PRN PRN Reason: Hypoglycemia Protocol Stop: 06/12/20 20:26 Miscellaneous (Fentanyl Patch Remove & Waste) 1 ea N/A Q72H [facility] Stop: 06/14/20 00:58 Last Admin: 05/18/20 00:09 Dose: 1 ea Documented by: Miscellaneous (Check Fentanyl Patch Placement) 1 ea N/A QS [facility] Stop: 06/14/20 07:59 Last Admin: 05/19/20 08:36 Dose: 1 ea Documented by: Nitroglycerin (Nitroglycerin Sl 0.4 Mg/Tab Tab) 0.4 mg SL Q5M PRN PRN Reason: Chest Pain Stop: 06/13/20 23:34 Ondansetron HCl (Ondansetron 4 Mg Od Tab) 4 mg PO DAILY [facility] Stop: 06/14/20 08:59 Last Admin: 05/19/20 08:44 Dose: 4 mg Documented by: Ondansetron HCl (Ondansetron Inj 2 Mg/Ml 2 Ml Vial) 4 mg IV Q4H PRN PRN Reason: Nausea Stop: 06/17/20 21:03 Last Admin: 05/18/20 21:24 Dose: 4 mg Documented by: Polyethylene Glycol (Polyethylene (Miralax) 17 Gm Pack) 17 gm PO DAILY PRN PRN Reason: Constipation Stop: 06/16/20 14:21 Last Admin: 05/17/20 15:37 Dose: 17 gm Documented by: Rosuvastatin Calcium (Rosuvastatin Calcium 5 Mg Tab) 5 mg PO DAILY [facility] Stop: 06/13/20 08:59 Last Admin: 05/19/20 08:38 Dose: 5 mg Documented by: Senna/Docusate Sodium (Docusate Sodium/Senna 50/8.6mg Tab) 1 tab PO BID [facility] Stop: 06/16/20 20:59 Last Admin: 05/19/20 08:42 Dose: Not Given Documented by: (1) Urinary tract infection Hematuria presence: without hematuria Urinary tract infection type: site unspecified Qualified Code(s): N39.0 - Urinary tract infection, site not specified
[2020-05-19] MEDS: AMIODARONE 200 MG TAB PO SCH ×2 (09:44→20:10)
--- NOTE | 2020-05-19 15:15 | Hospitalist Progress Note ---
Date of Service May 19, 2020 Assessment & Plan (1) NSTEMI (non-ST elevated myocardial infarction): EKG changes, symptoms, and initial troponin of 1 in the setting of known, long-standing CAD c/w NSTEMI. After much discussion - in light of bacteremia, recent ureteral stent placement, poor kidney function, numerous comorbidities, decompensated CHF, etc -- cardiac cath deferred at this time. Risks felt > benefits. - Peak troponin 7.9 with downtrending seen. - Remains on heparin infusion x 48 hours (at this point, done with NSTEMI usage, but still in atrial fibrillation). - Continue aspirin, statin, Imdur, & metoprolol. (Metop adjusted by Dr. Varner on 05/18 for better rate control.) - Given 1 unit of PRBCs by cardiology today for hgb > 9. (2) Acute on chronic diastolic heart failure: Improving. - Holding PO Lasix and HCTZ. - Cont beta-silvia. - Will monitor after blood today. (3) Acute and chronic respiratory failure with hypoxia: Acute resp failure AM of 05/15 2nd to NSTEMI, rapid a.fib, and acute/chronic diastolic CHF. - O2 sats stable on home O2 amount today. 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 (4) Paroxysmal atrial fibrillation: Recurrent rapid a.fib. - Finished amiodarone infusion; now on PO. - Remains on heparin drip as above - Continue beta silvia. Increased to 25 mg PO TID on 05/[address] Varner. - Will resume warfarin today. (5) Urinary tract infection: Complicated by obstructing kidney stone on right and septicemia. Urine culture and blood culture from 05/13 growing E. coli. - Abx x 2 weeks per urology - End date: 05/27/2020. (6) Kidney stone on right side: S/p right-sided ureteral stent placement by Dr Salvador on 05/15/2020 - appreciate his assistance. - Definitive stone management in the future - Likely remove stent in 3-4 weeks and see if stone can pass spontaneously. (7) CKD (chronic kidney disease), stage III: Baseline Cr about 1.3 to 1.5. - Cr is 1.4 today. At baseline. - Monitor (8) Essential tremor: Noted. H/o Parkinsonian features. - Needs metoprolol for PAF rate control in lieu of propranolol. (9) Legally blind: Noted. (10) Multiple sclerosis: Noted. Follows with Dr. Pierce. Discussed with him today. Will contact with any needed changes. - PT/OT when able (11) DM type 2 (diabetes mellitus, type 2): A1c of 6.8% this admission. - Continue Lantus 10 units BID - Sliding scale insulin - Post-meals seem the highest point and drive the evening sugar. More stable to day after changing meal-time. (12) Hypertension: BP stable today at 135/70. - Cont home meds but hold HCTZ (13) Interstitial lung disease: Likely cause of chronic hypoxic respiratory failure. (14) Hypothyroidism: TSH scantly elevated on 05/13/20 at 4.8. - Continue levothyroxine 100 mcg PO daily (15) History of DVT (deep vein thrombosis): On warfarin at home. INR was markedly supratherapeutic at admission s/p vit K for cystoscopy with stent placement. - Heparin drip initiated for PAF, NSTEMI, and h/o DVT Admission and Anticipated Discharge Date Admission Date: May 13, 2020 Subjective No major issues today. Now having some diarrhea after all the stool softeners. Reports no fevers/chills, chest pain, shortness of breath, abdominal pain, nausea, or vomiting. Physical Exam Constitutional: WD/WN, vitals as above Eyes: EOM intact bilaterally; no conjunctival abnormality ENMT: external ear and nose normal, oropharynx normal Neck: trachea midline, no thyromegaly normal visual inspection Respiratory: normal respiratory effort, lungs clear to auscultation no respiratory distress Cardiovascular: RRR, no murmur, no edema Rate/Rhythm: + irregularly irregular; not tachycardic Heart Sounds: normal S1 and normal S2 Gastrointestinal (Abdomen): Inspection/Auscultation: abdomen normal to inspection; abdomen not distended Musculoskeletal: no cyanosis or clubbing, extremities motor strength 5/5 Skin: no rashes, warm and dry Neurologic: moves all extremities and awake Psychiatric: Orientation: alert, oriented to person and cooperative Results & Data Results & Data ([facility]) Vital Signs (Past 12 Hours) Vital Signs Temp Pulse Pulse Resp BP BP Pulse Ox 05/19/20 14:27 36.6 C 77 18 114/89 100 05/19/20 13:41 36.6 C 82 18 132/85 99 05/19/20 12:41 36.7 C 69 18 111/65 97 05/19/20 12:11 36.5 C 84 17 128/79 100 05/19/20 11:56 36.7 C 89 18 123/81 100 05/19/20 11:36 36.8 C 76 18 137/71 99 05/19/20 08:23 36.8 C 125 H 20 117/68 97 05/19/20 08:00 87 05/19/20 04:00 36.8 C 93 H 19 120/73 99 PG Care Time/CCT Total # of Minutes Spent Total Time Spent with Patient: Total time spent is greater than 50% in coordination of care (as documented) at patient's floor/unit and/or counseling patient: Coding Level of Care Code 59847 Subseq Hosp Care Lvl 2 Diagnoses NSTEMI (non-ST elevated myocardial infarction) I21.4 Acute on chronic diastolic heart failure I50.33 Acute and chronic respiratory failure with hypoxia J96.21 Paroxysmal atrial fibrillation I48.0 Urinary tract infection N39.0 Urinary tract infection type: site unspecified Hematuria presence: without hematuria Kidney stone on right side N20.0 CKD (chronic kidney disease), stage III N18.3 Essential tremor G25.0 Legally blind H54.8 Multiple sclerosis G35 DM type 2 (diabetes mellitus, type 2) E11.69 Diabetes mellitus long winder tender insulin use: without long winder tender use Diabetes mellitus complication status: with other specified complication Hypertension I10 Hypertension type: essential hypertension Interstitial lung disease J84.9 Hypothyroidism E03.9 Hypothyroidism type: acquired History of DVT (deep vein thrombosis) Z86.718 (1) Urinary tract infection Urinary tract infection type: site unspecified Hematuria presence: without hematuria Qualified Code(s): N39.0 - Urinary tract infection, site not specified (2) DM type 2 (diabetes mellitus, type 2) Diabetes mellitus long winder tender insulin use: without long winder tender use Diabetes mellitus complication status: with other specified complication Qualified Code(s): E11.69 - Type 2 diabetes mellitus with other specified complication (3) Hypertension Hypertension type: essential hypertension Qualified Code(s): I10 - Essential (primary) hypertension (4) Hypothyroidism Hypothyroidism type: acquired Qualified Code(s): E03.9 - Hypothyroidism, unspecified
[2020-05-19] MEDS: cefTRIAXone SODIUM 2,000 MG in DEXTROSE 5% 50 ML IV SCH (16:35)
[2020-05-19] MEDS: WARFARIN SOD 1 MG TAB PO SCH (16:37)
[2020-05-19] MEDS: LORazepam 0.5 MG TAB PO PRN (20:13)
[2020-05-20] MEDS: LEVOTHYROXINE SODIUM 100 MCG TABLET PO SCH (03:32)
[2020-05-20] MEDS: HEPARIN SODIUM/DEXTROSE 25,000 UNITS/500 ML BAG IV SCH (03:32)
[2020-05-20 06:32] LABS: Hematocrit (blood only) 31.2 % (37-47); Hemoglobin 10.3 g/dL (12.0-16.0); Mean Corpuscular Hemoglobin 31.7 pg (25-34); Mean Platelet Volume 10.4 fL (7.4-10.4); Platelet Count 264 K/uL (130-400); RDW Coefficient of Variation 13.7 % (11.5-14.5); RDW Standard Deviation 48.2 fL (36.4-46.3); Red Blood Count 3.25 M/uL (4.2-5.4); White Blood Count 7.16 K/uL (4.8-10.8)
[2020-05-20 06:47] LABS: Partial Thromboplastin Ratio 1.4; Partial Thromboplastin Time 38.2 Seconds (21.0-31.0); Prothrombin Time 10.3 Seconds (9.0-12.0)
[2020-05-20 07:07] LABS: BUN Creatinine Ratio 12.6 (10-20); Calcium 9.3 mg/dl (8.5-10.1); Creatinine Clr Calc Pharmacy 33.8 ml/min; Est GFR (Non-African American) 36.3; Magnesium 2.3 mg/dl (1.8-2.4); Potassium 4.4 mmol/L (3.5-5.1)
[2020-05-20] MEDS ORDERED: HEPARIN IV BOLUS 5,000 UNITS in SYRINGE 0 ML IV ONE (07:15)
[2020-05-20] MEDS: INSULIN ASPART 100 UNITS/ML 3 ML PEN SC SCH ×4 (07:59→20:24)
[2020-05-20] MEDS: INSULIN GLARGINE SOLOSTAR 100 UNITS/ML 3 ML PEN SC SCH ×2 (08:00→20:25)
[2020-05-20] MEDS: CHECK FENTANYL PATCH PLACEMENT SCH ×3 (08:03→23:38)
[2020-05-20] MEDS: AMIODARONE 200 MG TAB PO SCH ×2 (08:04→20:20)
[2020-05-20] MEDS: GABAPENTIN 800 MG TAB PO SCH ×3 (08:04→20:21)
[2020-05-20] MEDS: METOPROLOL TARTRATE 25 MG TAB PO SCH ×3 (08:06→20:20)
[2020-05-20] MEDS: carBAMazepine 200 MG TABLET PO SCH (08:06)
[2020-05-20] MEDS: ROSUVASTATIN CALCIUM 5 MG TAB PO SCH (08:07)
[2020-05-20] MEDS: FOLIC ACID 400 MCG TAB PO SCH (08:07)
[2020-05-20] MEDS: ISOSORBIDE MONO EXTENDED REL 60 MG TABCR PO SCH (08:07)
[2020-05-20] MEDS: ASPIRIN 81 MG ECTAB PO SCH (08:07)
[2020-05-20] MEDS: ONDANSETRON 4 MG OD TAB PO SCH (08:10)
--- NOTE | 2020-05-20 10:36 | Cardiology Progress Note ---
Date of Service May 20, 2020 Assessment & Plan (1) Paroxysmal atrial fibrillation: Atrial fibrillation currently persistent patient's rates coming under control with combination of metoprolol and amiodarone with anticipation of future attempt return to sinus rhythm. Anticoagulation with IV heparin with transition to warfarin ordered (2) NSTEMI (non-ST elevated myocardial infarction): Secondary to acute demand issues. No current symptoms of angina or congestive heart failure Patient on optimal regimen including beta-silvia WADE inhibitor nitrates statin and antiplatelet therapy We will continue conservative management and patient with elevated risk for intervention (3) Chronic diastolic heart failure: (4) Septicemia: (5) Acute on chronic renal failure: (6) Right ureteral stone: (7) Urinary tract infection: (8) Anemia: Hemoglobin is improved after transfusion. Patient does complain of persistent weakness will likely need physical therapy this admission Admission and Anticipated Discharge Date Admission Date: May 13, 2020 Subjective Constipation remains intermittently a problem Patient was seen and examined, chart, medications, telemetry reviewed. No chest pain or discomfort no cardiac complaints. Heart rates coming under better control. Amiodarone switched to oral Patient does note unsteadiness on standing and some difficulty with ambulation. No focal issues Constipation still an issue Physical Exam Constitutional: + obese; no acute distress Eyes: PERRL, conjunctivae normal, anicteric sclerae ENMT: external ear and nose normal, oropharynx normal Neck: + thick neck Respiratory: Auscultation: lungs clear to auscultation bilaterally Cardiovascular: Rate/Rhythm: + irregularly irregular Heart Sounds: normal S1 and normal S2; no murmur Extremities: no edema Gastrointestinal (Abdomen): Percussion/Palpation: abdomen soft; abdomen nontender Musculoskeletal: Head/Neck/Chest: normocephalic and head atraumatic Results & Data ([facility]) Vital Signs (Past 12 Hours) Vital Signs Temp Pulse Pulse Resp BP Pulse Ox 05/20/20 08:01 36.8 C 128 H 22 147/88 H 99 05/20/20 07:16 97 H 05/20/20 03:35 36.5 C 81 18 138/85 99 05/20/20 00:00 36.7 C 76 19 145/83 H 99 05/19/20 23:54 79 Laboratory Results Laboratory Results - last 24 hr 05/19/20 05/19/20 05/19/20 04:31 09:57 09:57 WBC RBC Hgb Hct MCV MCH MCHC RDW Std Deviation RDW Coeff of Gillian Plt Count MPV PT INR APTT PTT Ratio Sodium Potassium Chloride Carbon Dioxide Anion Gap BUN Creatinine Est Cr Clr Drug Dosing Est GFR ( Amer) Est GFR (Non-Af Amer) BUN/Creatinine Ratio Glucose POC Glucose Calcium Magnesium Troponin I 0.481 H* Blood Type A Positive Blood Type Recheck A Positive Antibody Screen NEGATIVE Crossmatch See Detail 05/19/20 05/19/20 05/19/20 11:38 16:22 20:17 WBC RBC Hgb Hct MCV MCH MCHC RDW Std Deviation RDW Coeff of Gillian Plt Count MPV PT INR APTT PTT Ratio Sodium Potassium Chloride Carbon Dioxide Anion Gap BUN Creatinine Est Cr Clr Drug Dosing Est GFR ( Amer) Est GFR (Non-Af Amer) BUN/Creatinine Ratio Glucose POC Glucose 237 H 218 H 254 H Calcium Magnesium Troponin I Blood Type Blood Type Recheck Antibody Screen Crossmatch 05/20/20 05/20/20 05/20/20 06:02 06:02 06:02 WBC 7.16 RBC 3.25 L Hgb 10.3 L Hct 31.2 L MCV 96.0 MCH 31.7 MCHC 33.0 RDW Std Deviation 48.2 H RDW Coeff of Gillian 13.7 Plt Count 264 MPV 10.4 PT 10.3 INR 1.0 APTT 38.2 H PTT Ratio 1.4 Sodium 133 L Potassium 4.4 Chloride 95 L Carbon Dioxide 34 H Anion Gap 4.0 BUN 17 Creatinine 1.38 H Est Cr Clr Drug Dosing 33.8 Est GFR ( Amer) 42.0 Est GFR (Non-Af Amer) 36.3 BUN/Creatinine Ratio 12.6 Glucose 141 H POC Glucose Calcium 9.3 Magnesium 2.3 Troponin I Blood Type Blood Type Recheck Antibody Screen Crossmatch 05/20/20 07:28 WBC RBC Hgb Hct MCV MCH MCHC RDW Std Deviation RDW Coeff of Gillian Plt Count MPV PT INR APTT PTT Ratio Sodium Potassium Chloride Carbon Dioxide Anion Gap BUN Creatinine Est Cr Clr Drug Dosing Est GFR ( Amer) Est GFR (Non-Af Amer) BUN/Creatinine Ratio Glucose POC Glucose 148 H Calcium Magnesium Troponin I Blood Type Blood Type Recheck Antibody Screen Crossmatch (1) Urinary tract infection Urinary tract infection type: site unspecified Hematuria presence: without hematuria Qualified Code(s): N39.0 - Urinary tract infection, site not specified
[2020-05-20 15:02] LABS: Partial Thromboplastin Ratio 3.6
[2020-05-20 15:15] LABS: Partial Thromboplastin Time 99.1 Seconds (21.0-31.0)
--- NOTE | 2020-05-20 16:26 | Hospitalist Progress Note ---
Date of Service May 20, 2020 Assessment & Plan (1) NSTEMI (non-ST elevated myocardial infarction): EKG changes, symptoms, and initial troponin of 1 in the setting of known, long-standing CAD c/w NSTEMI. After much discussion - in light of bacteremia, recent ureteral stent placement, poor kidney function, numerous comorbidities, decompensated CHF, etc -- cardiac cath deferred at this time. Risks felt > benefits. - Peak troponin on 05/15 at 7.9. - Remains on heparin infusion (at this point, done with NSTEMI usage, but still in atrial fibrillation). - Continue aspirin, statin, Imdur, & metoprolol. (Metop adjusted by Dr. Varner on 05/18 for better rate control.) - Given 1 unit of PRBCs by cardiology on 05/29 for hgb > 9. Hgb now 10.3. (2) Acute on chronic diastolic heart failure: Improving. - Holding PO Lasix and HCTZ. - Cont beta-silvia. - Monitor after blood on 05/15. Stable today. No LE edema. No rales to indicate overload. (3) Acute and chronic respiratory failure with hypoxia: Acute resp failure AM of 05/15 2nd to NSTEMI, rapid a.fib, and acute/chronic diastolic CHF. - O2 sats stable on home O2 amount today. 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 (4) Paroxysmal atrial fibrillation: Recurrent rapid a.fib. - Finished amiodarone infusion; now on PO. - Remains on heparin drip as above - Continue beta silvia. Increased to 25 mg PO TID on 05/[address] Varner. - Continue warfarin; monitor INR. (5) Urinary tract infection: Complicated by obstructing kidney stone on right and septicemia. Urine culture and blood culture from 05/13 growing E. coli. - Abx x 2 weeks per urology - End date: 05/27/2020. (6) Kidney stone on right side: S/p right-sided ureteral stent placement by Dr Salvador on 05/15/2020 - appreciate his assistance. - Definitive stone management in the future - Likely remove stent in 3-4 weeks and see if stone can pass spontaneously. (7) CKD (chronic kidney disease), stage III: Baseline Cr about 1.3 to 1.5. - Cr is 1.4 today. At baseline. - Monitor (8) Essential tremor: Noted. H/o Parkinsonian features. - Needs metoprolol for PAF rate control in lieu of propranolol. (9) Legally blind: Noted. (10) Multiple sclerosis: Noted. Follows with Dr. Pierce. Discussed with him today. Will contact with any needed changes. - PT/OT (11) DM type 2 (diabetes mellitus, type 2): A1c of 6.8% this admission. - Continue Lantus 10 units BID - Sliding scale insulin - Post-meals seem the highest point and drive the evening sugar. More stable today after changing meal-time. Sugars 150-200 today. (12) Hypertension: BP stable today at 125/70. - Cont home meds but hold HCTZ (13) Interstitial lung disease: Likely cause of chronic hypoxic respiratory failure. (14) Hypothyroidism: TSH scantly elevated on 05/13/20 at 4.8. - Continue levothyroxine 100 mcg PO daily (15) History of DVT (deep vein thrombosis): On warfarin at home. INR was markedly supratherapeutic at admission s/p vit K for cystoscopy with stent placement. - Heparin drip initiated for PAF, NSTEMI, and h/o DVT Admission and Anticipated Discharge Date Admission Date: May 13, 2020 Subjective Doing better than ever. She is in good spirits today. No further abdominal pain. Reports no fevers/chills, chest pain, shortness of breath, abdominal pain, nausea, or vomiting. Physical Exam Constitutional: WD/WN, vitals as above Eyes: EOM intact bilaterally; no conjunctival abnormality ENMT: external ear and nose normal, oropharynx normal Neck: trachea midline, no thyromegaly normal visual inspection Respiratory: normal respiratory effort, lungs clear to auscultation no respiratory distress Cardiovascular: RRR, no murmur, no edema Rate/Rhythm: + irregularly irregular; not tachycardic Heart Sounds: normal S1 and normal S2 Gastrointestinal (Abdomen): Inspection/Auscultation: abdomen normal to inspection; abdomen not distended Musculoskeletal: no cyanosis or clubbing, extremities motor strength 5/5 Skin: no rashes, warm and dry Neurologic: moves all extremities and awake Psychiatric: Orientation: alert, oriented to person and cooperative Results & Data Results & Data ([facility]) Vital Signs (Past 12 Hours) Vital Signs Temp Pulse Pulse Resp BP BP Pulse Ox 05/20/20 15:55 36.5 C 60 16 124/66 98 05/20/20 13:34 64 18 133/70 05/20/20 11:59 36.7 C 63 20 94/65 L 99 05/20/20 08:01 36.8 C 128 H 22 147/88 H 99 05/20/20 07:16 97 H PG Care Time/CCT Total # of Minutes Spent Total Time Spent with Patient: Total time spent is greater than 50% in coordination of care (as documented) at patient's floor/unit and/or counseling patient: Coding Level of Care Code 60131 Subseq Hosp Care Lvl 3 Diagnoses NSTEMI (non-ST elevated myocardial infarction) I21.4 Acute on chronic diastolic heart failure I50.33 Acute and chronic respiratory failure with hypoxia J96.21 Paroxysmal atrial fibrillation I48.0 Urinary tract infection N39.0 Urinary tract infection type: site unspecified Hematuria presence: without hematuria Kidney stone on right side N20.0 CKD (chronic kidney disease), stage III N18.3 Essential tremor G25.0 Legally blind H54.8 Multiple sclerosis G35 DM type 2 (diabetes mellitus, type 2) E11.69 Diabetes mellitus intermediate frame tender insulin use: without skilled nursing use Diabetes mellitus complication status: with other specified complication Hypertension I10 Hypertension type: essential hypertension Interstitial lung disease J84.9 Hypothyroidism E03.9 Hypothyroidism type: acquired History of DVT (deep vein thrombosis) Z86.718 (1) Urinary tract infection Urinary tract infection type: site unspecified Hematuria presence: without hematuria Qualified Code(s): N39.0 - Urinary tract infection, site not specified (2) DM type 2 (diabetes mellitus, type 2) Diabetes mellitus skilled nursing insulin use: without skilled nursing use Diabetes mellitus complication status: with other specified complication Qualified Code(s): E11.69 - Type 2 diabetes mellitus with other specified complication (3) Hypertension Hypertension type: essential hypertension Qualified Code(s): I10 - Essential (primary) hypertension (4) Hypothyroidism Hypothyroidism type: acquired Qualified Code(s): E03.9 - Hypothyroidism, unspecified
[2020-05-20] MEDS: WARFARIN SOD 1 MG TAB PO SCH (16:40)
[2020-05-20] MEDS: cefTRIAXone SODIUM 2,000 MG in DEXTROSE 5% 50 ML IV SCH (16:45)
[2020-05-20] MEDS: LORazepam 0.5 MG TAB PO PRN (20:31)
[2020-05-20 23:09] LABS: Partial Thromboplastin Ratio 1.8
[2020-05-20 23:29] LABS: Partial Thromboplastin Time 50.6 Seconds (21.0-31.0)
[2020-05-20] MEDS: fentaNYL 25 MCG/HR TDSY TD SCH (23:52)
[2020-05-21] MEDS: LEVOTHYROXINE SODIUM 100 MCG TABLET PO SCH (03:24)
[2020-05-21] MEDS: HEPARIN SODIUM/DEXTROSE 25,000 UNITS/500 ML BAG IV SCH (03:24)
[2020-05-21 07:32] LABS: Hematocrit (blood only) 30.1 % (37-47); Hemoglobin 9.6 g/dL (12.0-16.0); Mean Corpuscular Hemoglobin 31.4 pg (25-34); Mean Corpuscular Hgb Conc 31.9 g/dL (32-36); Mean Corpuscular Volume 98.4 fL (80-100); Platelet Count 302 K/uL (130-400); RDW Coefficient of Variation 13.6 % (11.5-14.5); RDW Standard Deviation 48.6 fL (36.4-46.3); Red Blood Count 3.06 M/uL (4.2-5.4); White Blood Count 8.24 K/uL (4.8-10.8)
[2020-05-21 07:56] LABS: Partial Thromboplastin Ratio 2.1; Prothrombin Time 10.5 Seconds (9.0-12.0)
[2020-05-21 07:57] LABS: Partial Thromboplastin Time 57.5 Seconds (21.0-31.0)
[2020-05-21 08:03] LABS: Est GFR (Non-African American) 36.3; Potassium 4.9 mmol/L (3.5-5.1)
[2020-05-21 08:04] LABS: BUN Creatinine Ratio 12.2 (10-20); Calcium 9.2 mg/dl (8.5-10.1); Creatinine Clr Calc Pharmacy 33.8 ml/min
[2020-05-21] MEDS: ROSUVASTATIN CALCIUM 5 MG TAB PO SCH (08:18)
[2020-05-21] MEDS: FOLIC ACID 400 MCG TAB PO SCH (08:19)
[2020-05-21] MEDS: ASPIRIN 81 MG ECTAB PO SCH (08:19)
[2020-05-21] MEDS: carBAMazepine 200 MG TABLET PO SCH (08:19)
[2020-05-21] MEDS: ISOSORBIDE MONO EXTENDED REL 60 MG TABCR PO SCH (08:19)
[2020-05-21] MEDS: CHECK FENTANYL PATCH PLACEMENT SCH ×2 (08:20→16:28)
[2020-05-21] MEDS: GABAPENTIN 800 MG TAB PO SCH ×3 (08:22→20:13)
[2020-05-21] MEDS: AMIODARONE 200 MG TAB PO SCH ×2 (08:22→20:12)
[2020-05-21] MEDS: METOPROLOL TARTRATE 25 MG TAB PO SCH (08:22)
[2020-05-21] MEDS: INSULIN GLARGINE SOLOSTAR 100 UNITS/ML 3 ML PEN SC SCH ×2 (08:24→20:46)
[2020-05-21] MEDS: INSULIN ASPART 100 UNITS/ML 3 ML PEN SC SCH ×4 (08:26→20:46)
[2020-05-21] MEDS: ONDANSETRON 4 MG OD TAB PO SCH (08:39)
--- NOTE | 2020-05-21 09:34 | Cardiology Progress Note ---
Date of Service May 21, 2020 Assessment & Plan (1) Paroxysmal atrial fibrillation: Atrial fibrillation currently persistent patient's rates coming under control with combination of metoprolol and amiodarone with anticipation of future attempt return to sinus rhythm. Anticoagulation with IV heparin with transition to warfarin ordered, INR still subtherapeutic Will simplify oral regimen Change metoprolol tartrate to metoprolol succinate 50 mg p.o. twice daily Amiodarone 200 mg p.o. twice daily to be continued as discharge dosing Patient l with indications for full anticoagulation from atrial fibrillation standpoint as well as past DVT Awaiting INR rise Continue increased activities and physical therapy (2) NSTEMI (non-ST elevated myocardial infarction): Secondary to acute demand issues. No current symptoms of angina or congestive heart failure Patient on optimal regimen including beta-silvia WADE inhibitor nitrates statin and antiplatelet therapy We will continue conservative management and patient with elevated risk for in tervention Patient agreeable with this plan (3) Chronic diastolic heart failure: (4) Septicemia: (5) Acute on chronic renal failure: (6) Right ureteral stone: (7) Urinary tract infection: (8) Anemia: Hemoglobin stable Admission and Anticipated Discharge Date Admission Date: May 13, 2020 Subjective Patient was seen and examined, chart, medications, telemetry reviewed. No chest pain or discomfort no cardiac complaints. Heart rates coming under better control. Patient feeling stronger today has ambulated in room. No fevers or chills. No dysuria No visualized bleeding issues Physical Exam Constitutional: + obese; no acute distress Eyes: PERRL, conjunctivae normal, anicteric sclerae ENMT: external ear and nose normal, oropharynx normal Neck: + thick neck Respiratory: Auscultation: lungs clear to auscultation bilaterally (Other than minimal crackles left base) Cardiovascular: Rate/Rhythm: + irregularly irregular Heart Sounds: normal S1 and normal S2; no murmur Extremities: no edema Gastrointestinal (Abdomen): Percussion/Palpation: abdomen soft; abdomen nontender Musculoskeletal: Head/Neck/Chest: normocephalic and head atraumatic Results & Data ([facility]) Vital Signs (Past 12 Hours) Vital Signs Temp Pulse Pulse Resp BP Pulse Ox 05/21/20 07:38 36.7 C 76 18 132/85 99 05/21/20 03:32 36.7 C 85 20 138/85 96 05/21/20 00:46 36.5 C 89 19 134/85 98 05/21/20 00:35 78 Laboratory Results Laboratory Results - last 24 hr 05/20/20 05/20/20 05/20/20 11:43 14:33 16:15 WBC RBC Hgb Hct MCV MCH MCHC RDW Std Deviation RDW Coeff of Gillian Plt Count MPV PT INR APTT 99.1 H* PTT Ratio 3.6 Sodium Potassium Chloride Carbon Dioxide Anion Gap BUN Creatinine Est Cr Clr Drug Dosing Est GFR ( Amer) Est GFR (Non-Af Amer) BUN/Creatinine Ratio Glucose POC Glucose 203 H 168 H Calcium 05/20/20 05/20/20 05/21/20 20:16 22:28 07:18 WBC 8.24 RBC 3.06 L Hgb 9.6 L Hct 30.1 L MCV 98.4 MCH 31.4 MCHC 31.9 L RDW Std Deviation 48.6 H RDW Coeff of Gillian 13.6 Plt Count 302 MPV 10.0 PT INR APTT 50.6 H* PTT Ratio 1.8 Sodium Potassium Chloride Carbon Dioxide Anion Gap BUN Creatinine Est Cr Clr Drug Dosing Est GFR ( Amer) Est GFR (Non-Af Amer) BUN/Creatinine Ratio Glucose POC Glucose 203 H Calcium 05/21/20 05/21/20 05/21/20 07:18 07:18 07:37 WBC RBC Hgb Hct MCV MCH MCHC RDW Std Deviation RDW Coeff of Gillian Plt Count MPV PT 10.5 INR 1.0 APTT 57.5 H* PTT Ratio 2.1 Sodium 135 L Potassium 4.9 Chloride 95 L Carbon Dioxide 34 H Anion Gap 6.0 BUN 17 Creatinine 1.38 H Est Cr Clr Drug Dosing 33.8 Est GFR ( Amer) 42.0 Est GFR (Non-Af Amer) 36.3 BUN/Creatinine Ratio 12.2 Glucose 138 H POC Glucose 158 H Calcium 9.2 (1) Urinary tract infection Urinary tract infection type: site unspecified Hematuria presence: without hematuria Qualified Code(s): N39.0 - Urinary tract infection, site not specified
[2020-05-21] MEDS ORDERED: METOPROLOL SUCC 25MG EXT REL TAB PO ONE (09:41)
--- NOTE | 2020-05-21 14:11 | Hospitalist Progress Note ---
Date of Service May 21, 2020 Assessment & Plan (1) NSTEMI (non-ST elevated myocardial infarction): EKG changes, symptoms, and initial troponin of 1 in the setting of known, long-standing CAD c/w NSTEMI. After much discussion - in light of bacteremia, recent ureteral stent placement, poor kidney function, numerous comorbidities, decompensated CHF, etc -- cardiac cath deferred at this time. Risks felt > benefits. - Peak troponin on 05/15 at 7.9. - Remains on heparin infusion (at this point, done with NSTEMI usage, but still in atrial fibrillation). Switch to Lovenox on discharge. - Continue aspirin, statin, Imdur, & metoprolol. - Doing well with no chest pain. (2) Acute on chronic diastolic heart failure: Improving. - Holding PO Lasix and HCTZ. - Cont beta-silvia. - Monitor after blood on 05/15. Stable today. No LE edema. No rales to indicate overload. (3) Acute and chronic respiratory failure with hypoxia: Acute resp failure AM of 05/15 2nd to NSTEMI, rapid a.fib, and acute/chronic diastolic CHF. - O2 sats stable on home O2 amount today. 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 (4) Paroxysmal atrial fibrillation: Recurrent rapid a.fib. - Finished amiodarone infusion; now on PO. - Remains on heparin drip as above; switch to Lovenox for discharge. - Continue beta silvia. Adjusted to metoprolol XL 50 mg PO BID by Dr. Borja. - Continue warfarin; monitor INR. (5) Urinary tract infection: Complicated by obstructing kidney stone on right and septicemia. Urine culture and blood culture from 05/13 growing E. coli. - Abx x 2 weeks per urology - Sent cefdinir 300 mg PO daily to pharmacy x 2 weeks (daily due to renal function). (6) Kidney stone on right side: S/p right-sided ureteral stent placement by Dr Salvador on 05/15/2020 - appreciate his assistance. - Definitive stone management in the future - Likely remove stent in 3-4 weeks and see if stone can pass spontaneously. (7) CKD (chronic kidney disease), stage III: Baseline Cr about 1.3 to 1.5. - Cr is 1.4 today. At baseline. - Monitor (8) Essential tremor: Noted. H/o Parkinsonian features. - Needs metoprolol for PAF rate control in lieu of propranolol. (9) Legally blind: Noted. (10) Multiple sclerosis: Noted. Follows with Dr. Pierce. Discussed with him on 05/18. Will contact with any needed changes. - PT/OT -> Doing well. (11) DM type 2 (diabetes mellitus, type 2): A1c of 6.8% this admission. - Continue Lantus 10 units BID - Sliding scale insulin - Post-meals seem the highest point and drive the evening sugar. More stable today after changing meal-time. Sugars 150-200 today. (12) Hypertension: BP stable today at 125/70. - Cont home meds but hold HCTZ (13) Interstitial lung disease: Likely cause of chronic hypoxic respiratory failure. (14) Hypothyroidism: TSH scantly elevated on 05/13/20 at 4.8. - Continue levothyroxine 100 mcg PO daily (15) History of DVT (deep vein thrombosis): On warfarin at home. INR was markedly supratherapeutic at admission s/p vit K for cystoscopy with stent placement. - Heparin drip initiated for PAF, NSTEMI, and h/o DVT Admission and Anticipated Discharge Date Admission Date: May 13, 2020 Subjective Doing well today. Ready to go home. Reports no fevers/chills, chest pain, shortness of breath, abdominal pain, nausea, or vomiting. Physical Exam Constitutional: WD/WN, vitals as above Eyes: EOM intact bilaterally; no conjunctival abnormality ENMT: external ear and nose normal, oropharynx normal Neck: trachea midline, no thyromegaly normal visual inspection Respiratory: normal respiratory effort, lungs clear to auscultation no respiratory distress Cardiovascular: RRR, no murmur, no edema Rate/Rhythm: + irregularly irregular; not tachycardic Heart Sounds: normal S1 and normal S2 Gastrointestinal (Abdomen): Inspection/Auscultation: abdomen normal to inspection; abdomen not distended Musculoskeletal: no cyanosis or clubbing, extremities motor strength 5/5 Skin: no rashes, warm and dry Neurologic: moves all extremities and awake Psychiatric: Orientation: alert, oriented to person and cooperative Results & Data Results & Data ([facility]) Vital Signs (Past 12 Hours) Vital Signs Temp Pulse Pulse Resp BP Pulse Ox 05/21/20 13:36 77 05/21/20 11:40 36.5 C 105 H 20 132/85 98 05/21/20 07:38 36.7 C 76 18 132/85 99 05/21/20 03:32 36.7 C 85 20 138/85 96 PG Care Time/CCT Total # of Minutes Spent Total Time Spent with Patient: Total time spent is greater than 50% in coordination of care (as documented) at patient's floor/unit and/or counseling patient: Coding Level of Care Code 78806 Subseq Hosp Care Lvl 2 Diagnoses NSTEMI (non-ST elevated myocardial infarction) I21.4 Acute on chronic diastolic heart failure I50.33 Acute and chronic respiratory failure with hypoxia J96.21 Paroxysmal atrial fibrillation I48.0 Urinary tract infection N39.0 Urinary tract infection type: site unspecified Hematuria presence: without hematuria Kidney stone on right side N20.0 CKD (chronic kidney disease), stage III N18.3 Essential tremor G25.0 Legally blind H54.8 Multiple sclerosis G35 DM type 2 (diabetes mellitus, type 2) E11.69 Diabetes mellitus halfway insulin use: without halfway use Diabetes mellitus complication status: with other specified complication Hypertension I10 Hypertension type: essential hypertension Interstitial lung disease J84.9 Hypothyroidism E03.9 Hypothyroidism type: acquired History of DVT (deep vein thrombosis) Z86.718 (1) Urinary tract infection Urinary tract infection type: site unspecified Hematuria presence: without hematuria Qualified Code(s): N39.0 - Urinary tract infection, site not specified (2) DM type 2 (diabetes mellitus, type 2) Diabetes mellitus halfway insulin use: without salvage determiner use Diabetes mellitus complication status: with other specified complication Qualified Code(s): E11.69 - Type 2 diabetes mellitus with other specified complication (3) Hypertension Hypertension type: essential hypertension Qualified Code(s): I10 - Essential (primary) hypertension (4) Hypothyroidism Hypothyroidism type: acquired Qualified Code(s): E03.9 - Hypothyroidism, unspecified
[2020-05-21] MEDS: WARFARIN SOD 1 MG TAB PO SCH (16:27)
[2020-05-21] MEDS: cefTRIAXone SODIUM 2,000 MG in DEXTROSE 5% 50 ML IV SCH (16:27)
--- NOTE | 2020-05-21 19:13 | XRay Report ---
KUB HISTORY: Follow up study in a patient with right ureteral calculus ureteral stone COMPARISON: CT abdomen and pelvis 05/14/2020 FINDINGS: The bowel gas pattern is non-obstructive. Right ureteral stent in place. 3 mm right renal c alculus redemonstrated. The previously noted ureteral calculus is not definitively seen. Moderate fec al retention limits the study. Moderate gaseous distention of the stomach. Cholecystectomy. No pneumo peritoneum or pneumatosis. No fracture. IMPRESSION: 1. Satisfactory positioning of the right ureteral stent. No definite ureteral calculus identified. 2. Right nephrolithiasis. 3. Moderate fecal retention limits the study. ACT 112: Negative or not required by law. The above report was generated using voice recognition software. It may contain grammatical, syntax o r spelling errors. Electronically signed by: Hal Pratt M.D. 05/21/2020 7:12 PM
[2020-05-21] MEDS: METOPROLOL SUCC 50MG EXT REL TAB PO SCH (20:13)
[2020-05-21] MEDS: LORazepam 0.5 MG TAB PO PRN (20:16)
--- NOTE | 2020-05-21 20:41 | Urology Progress Note ---
Date of Service May 21, 2020 Assessment & Plan (1) Right ureteral stone: (2) Urinary tract infection: Continue antibiotics Keflex 250 milligrams every 6 hours for a week and then start Macrodantin 50 mg at bedtime Patient will need phone visit in 2 to 3 weeks to set up possible cystoscopy and stent removal If stone fails to pass unfortunately would need urgent ureteroscopy but need to weigh this against the risk of general anesthesia for someone this ill who just had an OR Admission and Anticipated Discharge Date Admission Date: May 13, 2020 Subjective Pt states she is going home in am . Would continue keflex 250 mg q6 for 7 more days and then start macrodantin 50 mg hs. Kub tonite shows 4 to5 mm stone in r renal pelvis . Not sure pt could tolerate anesthesia for ureteroscopy . Might consider stent removal and trial of passage after a month. The stent would dilate the ureter and increase the chance that the stone might pass. Patient will need to follow-up with a phone visit in several weeks and if stable would consider cystoscopy stent removal in the office for trial of passage Results & Data ([facility]) Vital Signs (Past 12 Hours) Vital Signs Temp Pulse Pulse Resp BP Pulse Ox 05/21/20 19:27 36.6 C 100 H 18 154/92 H 99 05/21/20 18:59 90 05/21/20 14:58 36.5 C 96 H 18 146/79 H 97 05/21/20 13:36 77 05/21/20 11:40 36.5 C 105 H 20 132/85 98 PG Care Time/CCT Total # of Minutes Spent Total Time Spent with Patient: Total time spent is greater than 50% in coordination of care (as documented) at patient's floor/unit and/or counseling patient: Coding Level of Care Code 93573 Subseq Hosp Care Lvl 2 Diagnoses Right ureteral stone N20.1 Urinary tract infection N39.0 Urinary tract infection type: site unspecified Hematuria presence: without hematuria (1) Urinary tract infection Urinary tract infection type: site unspecified Hematuria presence: without hematuria Qualified Code(s): N39.0 - Urinary tract infection, site not specified
[2020-05-22] MEDS: CHECK FENTANYL PATCH PLACEMENT SCH ×2 (00:02→09:01)
[2020-05-22] MEDS: LEVOTHYROXINE SODIUM 100 MCG TABLET PO SCH (06:11)
[2020-05-22 07:22] LABS: Hemoglobin 9.4 g/dL (12.0-16.0); Mean Corpuscular Hemoglobin 31.2 pg (25-34); Mean Corpuscular Hgb Conc 31.3 g/dL (32-36); Mean Corpuscular Volume 99.7 fL (80-100); Platelet Count 323 K/uL (130-400); RDW Coefficient of Variation 13.5 % (11.5-14.5); RDW Standard Deviation 48.7 fL (36.4-46.3); Red Blood Count 3.01 M/uL (4.2-5.4); White Blood Count 8.02 K/uL (4.8-10.8)
[2020-05-22 07:41] LABS: Partial Thromboplastin Ratio 1.9; Prothrombin Time 10.4 Seconds (9.0-12.0)
[2020-05-22 07:49] LABS: Partial Thromboplastin Time 52.1 Seconds (21.0-31.0)
[2020-05-22 08:04] LABS: BUN Creatinine Ratio 15.2 (10-20); Calcium 9.4 mg/dl (8.5-10.1); Creatinine Clr Calc Pharmacy 40.4 ml/min; Est GFR (African American) 51.9; Est GFR (Non-African American) 44.7; Magnesium 2.1 mg/dl (1.8-2.4)
[2020-05-22] MEDS: METOPROLOL SUCC 50MG EXT REL TAB PO SCH (08:58)
[2020-05-22] MEDS: carBAMazepine 200 MG TABLET PO SCH (08:58)
[2020-05-22] MEDS: AMIODARONE 200 MG TAB PO SCH (08:59)
[2020-05-22] MEDS: GABAPENTIN 800 MG TAB PO SCH (08:59)
[2020-05-22] MEDS: ISOSORBIDE MONO EXTENDED REL 60 MG TABCR PO SCH (09:00)
[2020-05-22] MEDS: FOLIC ACID 400 MCG TAB PO SCH (09:00)
[2020-05-22] MEDS: INSULIN ASPART 100 UNITS/ML 3 ML PEN SC SCH ×2 (09:02→12:00)
[2020-05-22] MEDS: INSULIN GLARGINE SOLOSTAR 100 UNITS/ML 3 ML PEN SC SCH (09:06)
[2020-05-22] MEDS: ROSUVASTATIN CALCIUM 5 MG TAB PO SCH (09:08)
[2020-05-22] MEDS: ASPIRIN 81 MG ECTAB PO SCH (09:08)
[2020-05-22] MEDS: HEPARIN SODIUM/DEXTROSE 25,000 UNITS/500 ML BAG IV SCH (10:38)
--- NOTE | 2020-05-22 10:58 | Cardiology Progress Note ---
Date of Service May 22, 2020 Assessment & Plan (1) Paroxysmal atrial fibrillation: Atrial fibrillation currently persistent patient's rates coming under control with combination of metoprolol and amiodarone with anticipation of future attempt return to sinus rhythm. Anticoagulation with IV heparin with transition to warfarin ordered, INR still subtherapeutic Reviewed medications in detail with patient warfarin dosing prior to hospitalization was 4 mg alternating with 5 mg daily. Warfarin dosing will need to be increased from current order Continue increased activities and physical therapy (2) NSTEMI (non-ST elevated myocardial infarction): Secondary to acute demand issues. No current symptoms of angina or congestive heart failure Patient on optimal regimen including beta-silvia WADE inhibitor nitrates statin and antiplatelet therapy We will continue conservative management and patient with elevated risk for intervention Patient agreeable with this plan (3) Chronic diastolic heart failure: (4) Septicemia: (5) Acute on chronic renal failure: (6) Right ureteral stone: Currently not visualized on KUB. Ureteral stent in proper position (7) Urinary tract infection: (8) Anemia: Hemoglobin stable Admission and Anticipated Discharge Date Admission Date: May 13, 2020 Subjective Patient seen and examined, chart, medications, telemetry reviewed. Feels well this morning ambulatory in room anxious to be discharged. No urinary symptoms or back pain. Physical Exam Constitutional: + obese; no acute distress Eyes: PERRL, conjunctivae normal, anicteric sclerae ENMT: external ear and nose normal, oropharynx normal Neck: + thick neck Respiratory: Auscultation: lungs clear to auscultation bilaterally (Other than minimal crackles left base) Cardiovascular: Rate/Rhythm: + irregularly irregular Heart Sounds: normal S1 and normal S2; no murmur Extremities: no edema Gastrointestinal (Abdomen): Percussion/Palpation: abdomen soft; abdomen nontender Musculoskeletal: Head/Neck/Chest: normocephalic and head atraumatic Results & Data ([facility]) Vital Signs (Past 12 Hours) Vital Signs Temp Pulse Pulse Resp BP Pulse Ox 05/22/20 08:00 36.8 C 89 18 129/74 96 05/22/20 02:52 36.6 C 81 18 134/76 99 05/22/20 00:50 100 H (1) Urinary tract infection Urinary tract infection type: site unspecified Hematuria presence: without hematuria Qualified Code(s): N39.0 - Urinary tract infection, site not specified
[2020-05-22] MEDS ORDERED: ENOXAPARIN 80 MG/0.8 ML SYR SQ ONE (11:15)
[2020-05-22] MEDS: ONDANSETRON 4 MG OD TAB PO SCH (11:57)
--- NOTE | 2020-05-22 15:58 | Discharge Summary ---
Date of Service May 22, 2020 Admission HPI Per Admitting Provider Luisana Muhammad is a 80 yo female with h/o Multiple Sclerosis, CAD (3 stents in 2009), Diastolic Heart Failure, T2DM, CKD Stage III, history of DVT, who presents to [facility] after a fall at her home earlier today as well as recent history of UTI. Patient reports that she was standing up from a chair and walking to the kitchen table when she began to feel dizzy, lightheaded and nauseous. She subsequently lost her balance and fell on her backside; she was holding her walker to lighten the fall and denies associated LOC, head trauma, or hip/arm/leg pain after the fall. Reports that her symptoms quickly resolved after falling to the ground. Her was not able to lift her up, so they decided to call 911 and EMS transported the patient to the ED. Additionally, Ms. Muhammad reports urinary symptoms of dysuria, increased urinary frequency/urgency, flank pain and 100-101F fevers approximately 10 days ago; visited her PCP (Dr. Reis) who diagnosed her with UTI and gave her 5-day course of unknown medication (although upon searching the chart for recently filled medications, the patient filled a 5-day prescription of Amoxicillin on 05/09). The patient reports that she finished her antibiotics several days ago but her urinary symptoms only mildly improved. Denies further fevers since finishing antibiotics but reports that she has had decreased PO intake over the last several days due to feeling more fatigued. Patient reports occasional moderate substernal chest pain that radiates to her left arm, but says this has happened several times per month for ~1 year and rest/nitro completes resolves symptoms. Also reports using oxygen at home (3- 3.5L NC) due to chronic lung disease - denies past/present tobacco smoking. Chronically blind with bilateral lumbar radiculopathy, back/leg pain and facial/bilateral arm tremor secondary to MS. Occasional easy bruising secondary to warfarin use. Lives in [place], [place] with her , John, and two great-grandchildren (ages 20 and 17). Patient and her have been primary caregivers for the children. She does well with all ADLs and some iADLS but her and great- grandchildren help her with bills, transportation, shopping, etc. Denies alcohol/drug use. Principal Diagnosis UTI with sepsis NSTEMI Discharge Exam Constitutional WD/WN, vitals as above Eyes EOM intact bilaterally; no conjunctival abnormality ENMT external ear and nose normal, oropharynx normal Neck trachea midline, no thyromegaly normal visual inspection Respiratory normal respiratory effort, lungs clear to auscultation no respiratory distress Cardiovascular RRR, no murmur, no edema Rate/Rhythm: + irregularly irregular; not tachycardic Heart Sounds: normal S1 and normal S2 Gastrointestinal (Abdomen) Inspection/Auscultation: abdomen normal to inspection; abdomen not distended Musculoskeletal no cyanosis or clubbing, extremities motor strength 5/5 Skin no rashes, warm and dry Neurologic moves all extremities and awake Psychiatric Orientation: alert, oriented to person and cooperative Discharge Data Allergies Allergy/AdvReac Type Severity Reaction Status Date / Time allopurinol Allergy Unknown COUGH Verified 05/13/20 18:35 blue dye Allergy Unknown BRILLIANT Verified 05/13/20 18:35 BLUE FCF dimethyl fumarate Allergy Unknown UNKNOWN Verified 05/13/20 18:35 Consultations 05/13/20 17:13 ED Decision to Admit Stat 05/14/20 12:38 Consult Urology Routine 05/15/20 17:01 Consult Cardiology Routine Procedures Performed Operation Date: 05/14/20 19:30 Actual Procedures p Right Ureteral Stent Insertion(Right) - Nirmal Salvador MD s Cystoscopy, Bilateral Retrograde Pyelogram(Not Applicable) - Nirmal Salvador MD Ordered Studies 05/14/20 FL retrograde includes kub Routine 05/14/20 09:45 CT abd pelvis wo con Urgent Hospital Course (1) NSTEMI (non-ST elevated myocardial infarction): EKG changes, symptoms, and initial troponin of 1 in the setting of known, long-standing CAD c/w NSTEMI. After much discussion - in light of bacteremia, recent ureteral stent placement, poor kidney function, numerous comorbidities, decompensated CHF, etc -- cardiac cath deferred at this time. Risks felt > benefits. - Peak troponin on 05/15 at 7.9. - Continue aspirin, statin, Imdur, & metoprolol. Follow up with Dr. Borja in 1 week. (2) Acute on chronic diastolic heart failure: Improving. - Holding PO Lasix and HCTZ. - Cont beta-silvia. - Monitor after blood on 05/15. Stable today. No LE edema. No rales to indicate overload. Discharged on Lasix 40 mg PO PRN. Likely due to fluids from surgery, sepsis. (3) Acute and chronic respiratory failure with hypoxia: Acute resp failure AM of 05/15 2nd to NSTEMI, rapid a.fib, and acute/chronic diastolic CHF. - O2 sats stable on home O2 amount today. 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 (4) Paroxysmal atrial fibrillation: Recurrent rapid a.fib. - Finished amiodarone infusion; now on PO. - Adjusted to metoprolol XL 50 mg PO BID by Dr. Borja. - Continue warfarin; monitor INR. (5) Urinary tract infection: Complicated by obstructing kidney stone on right and septicemia. Urine culture and blood culture from 05/13 growing E. coli. - Abx x 2 weeks per urology - Sent cefdinir 300 mg PO daily to pharmacy x 2 weeks (daily due to renal function). (6) Kidney stone on right side: S/p right-sided ureteral stent placement by Dr Salvador on 05/15/2020 - appreciate his assistance. - Definitive stone management in the future - Likely remove stent in 3-4 weeks and see if stone can pass spontaneously. Given contact information for Urology office. (7) CKD (chronic kidney disease), stage III: Baseline Cr about 1.3 to 1.5. - Cr is 1.4 today. At baseline. - Monitor (8) Essential tremor: Noted. H/o Parkinsonian features. - Needs metoprolol for PAF rate control in lieu of propranolol. (9) Legally blind: Noted. (10) Multiple sclerosis: Noted. Follows with Dr. Pierce. Discussed with him on 05/18. Will contact with any needed changes. - PT/OT -> Doing well. (11) DM type 2 (diabetes mellitus, type 2): A1c of 6.8% this admission. - Return to home diabetic regimen given she is at goal. (12) Hypertension: BP stable today at 125/70. - Cont home meds but hold HCTZ and lisinopril on discharge. (13) Interstitial lung disease: Likely cause of chronic hypoxic respiratory failure. (14) Hypothyroidism: TSH scantly elevated on 05/13/20 at 4.8. - Continue levothyroxine 100 mcg PO daily (15) History of DVT (deep vein thrombosis): On warfarin at home. INR was markedly supratherapeutic at admission s/p vi t K for cystoscopy with stent placement. - Lovenox shots to warfarin at home. Total Time Total Time Spent Total Time Spent (In Minutes): 35 Discharge Plan Discharge Items Patient Disposition: Home - Home Health Services Reason For Visit: UTI Discharge Diagnosis: UTI and sepsis; resulting NSTEMI (heart attack) Activity: Resume your previous activity Non-emergency contact: Primary Care Provider and Swine Nutritionist Call non-emergency contact if: your symptoms worsen Follow-up/Referrals: Nirmal Salvador MD [Physician] - (Please see Dr. Salvador in 2-3 weeks to discuss stent removal. DR SESAY OFFICE WILL CALL YOU WITH AN APT DAY AND TIME) Perez Borja MD [Physician] - 06/06/20 3:00 pm (Please see Dr. Borja in 1-2 weeks to check on your heart and to check your INR.) Chris Reis PA-C [Primary Care Provider] - 06/02/20 10:00 am Diet: Carb Consistent or DM2 and Heart Healthy Addtl Attending Provider Instructions: Ms. Muhammad, You were admitted to the hospital for a UTI that was complicated by a kidney stone blocking the drainage of urine from the kidney. You required a stent to bypass the stone. You will need to be on antibiotics for 2 weeks and follow up with Dr. Salvador in the clinic to get the stent removed. You will take this antibiotic one time per day. After you finish this course of antibiotic (the cefdinir), you will take nitrofurantoin every evening before bedtime until instructed by the Urology team to stop. The stress from this illness caused a small heart attack. We had you on a heparin infusion through your IV to help keep your heart healthy. We are switching you back to warfarin to continue treatment. For the next 7 days, please use the Lovenox injections to keep your blood thin. Please follow up at Dr. Borja's office for an INR check this week or early next week to ensure your blood is reaching the right level. You will do the Lovenox injection once per day until your INR reaches 2-3. You reported that you and your have done these before, so hopefully this is not an issue. Your next injection will be tomorrow because your got your injection already today. Pending Studies at Discharge: No Stand-Alone Forms: My [facility], Smoking Cessation Medications and DC Order Prescriptions: New amiodarone 200 mg Tablet 200 mg PO BID Qty: 60 RF: 0 metoprolol succinate 50 mg Tablet Extended Release 24 Hr 50 mg PO BID Qty: 60 RF: 0 enoxaparin [Lovenox] 80 mg/0.8 mL syringe 80 mg subcut DAILY Qty: 8 RF: 0 cefdinir 300 mg capsule 300 mg PO DAILY Qty: 14 RF: 0 nitrofurantoin macrocrystal [Macrodantin] 50 mg capsule 50 mg PO HS Qty: 30 RF: 0 Continued fentanyl 25 mcg/hr patch 72 hour 1 patch TD .COMPLEX RF: 0 biotin 5 mg tablet 5 tab PO DAILY RF: 0 warfarin 1 mg tablet 0 mg PO DAILY RF: 0 aspirin 81 mg tablet,delayed release (DR/EC) 81 mg PO DAILY RF: 0 pioglitazone 15 mg tablet 15 mg PO DAILY RF: 0 (DME) Oxygen Home Liters Per Minute See Dose Instructions .ROUTE .MEDSUPPLY Qty: 1 RF: 0 buspirone 10 mg tablet 10 mg PO BID PRN (Reason: Anxiety) RF: 0 carbamazepine 200 mg tablet 200 mg PO DAILY RF: 0 glipizide 10 mg tablet 10 mg PO BID RF: 0 levothyroxine [Synthroid] 100 mcg tablet 100 mcg PO DAILY RF: 0 lorazepam 0.5 mg tablet 0.5 mg PO DAILY PRN (Reason: Anxiety) RF: 0 Trulicity 1.5 mg/0.5 mL pen injector 0 mg SQ WEEKLY RF: 0 metformin 500 mg tablet 500 mg PO BID RF: 0 nitroglycerin 0.4 mg tablet, sublingual 0.4 mg SL Q5M PRN (Reason: Chest Pain) RF: 0 gabapentin 800 mg tablet 800 mg PO TID Qty: 270 RF: 3 promethazine 12.5 mg tablet 12.5 mg PO DAILY RF: 0 senna 8.6 mg Capsule 8.6 mg PO BID PRN (Reason: Constipation) RF: 0 acetaminophen [Tylenol] 325 mg Tablet 650 mg PO Q6 PRN (Reason: Pain) RF: 0 folic acid 400 mcg Tablet 0.4 mg PO DAILY RF: 0 ergocalciferol (vitamin D2) [Vitamin D2] 1,250 mcg (50,000 unit) Capsule 1,250 mcg PO WK RF: 0 ondansetron HCl 4 mg tablet 4 mg PO DAILY RF: 0 isosorbide mononitrate 120 mg tablet extended release 24 hr 120 mg PO DAILY RF: 0 rosuvastatin 5 mg tablet 5 mg PO DAILY RF: 0 Linzess 72 mcg Capsule 0 mcg PO DAILY RF: 0 furosemide 40 mg tablet 40 mg PO DAILY PRN (Reason: Edema) RF: 0 Discontinued propranolol 80 mg capsule,extended release 24 hr 80 mg PO BID RF: 0 amoxicillin 500 mg capsule 500 mg PO BID RF: 0 lisinopril 2.5 mg tablet 2.5 mg PO DAILY RF: 0 hydrochlorothiazide 12.5 mg tablet 12.5 mg PO BID RF: 0 Discharge Orders: Discharge Order (Routine); Ordered 05/22/20 Ordered By: Joshua Szymanski/Other Patient Handouts: Managing Type 2 Diabetes, Urinary Tract Infections in Women Admission Data Admit Date/Time: 05/13/20 18:53 Attending Provider: Joshua Pozo Admit Provider: Joshua Pozo Primary Care Provider: Chris Reis Other Providers: Joshua Pozo ; Nirmal Salvador ; Kike Jacobson ; [facility] Other Interventions: Discharge Summary Assessment (RN) Last Done: 05/22/20 11:37 Coding Level of Care Code D/C Day Management >30 mins Diagnoses NSTEMI (non-ST elevated myocardial infarction) I21.4 Acute on chronic diastolic heart failure I50.33 Acute and chronic respiratory failure with hypoxia J96.21 Paroxysmal atrial fibrillation I48.0 Urinary tract infection N39.0 Urinary tract infection type: site unspecified Hematuria presence: without hematuria Kidney stone on right side N20.0 CKD (chronic kidney disease), stage III N18.3 Essential tremor G25.0 Legally blind H54.8 Multiple sclerosis G35 DM type 2 (diabetes mellitus, type 2) E11.69 Diabetes mellitus supervisor intermediates insulin use: without supervisor intermediates use Diabetes mellitus complication status: with other specified complication Hypertension I10 Hypertension type: essential hypertension Interstitial lung disease J84.9 Hypothyroidism E03.9 Hypothyroidism type: acquired History of DVT (deep vein thrombosis) Z86.718
== END 2020-05-22 14:22 | disposition home health service (06) | DRG 853 ==
LOC: ED 15:27 → 3W 18:53 → SUATTDRO 18:53 → 3W 20:00 → 2S 05-15 10:35

== ENCOUNTER 2020-05-26 07:32 | Inpatient (IN) ==
--- NOTE | 2020-05-26 07:42 | Emergency Department Note ---
History of Present Illness General Chief Complaint: Chest Pain Time Seen by Provider: 05/26/20 07:36 Source: patient, EMS, RN notes reviewed and old records reviewed Mode of arrival: EMS Limitations: no limitations History of Present Illness Provider Complaint: chest pain Onset (ago): hour(s) 4 Duration: now resolved Onset: during rest and awoke with symptoms Pain Location: substernal Pain Radiation: none Severity: moderate Current Pain Intensity: 0 Quality: + aching Relieved By: + nitroglycerin Exacerbated By: + nothing Context: + recent illness and + recent surgery Associated symptoms: + nausea and + vomiting Treatments prior to arrival: nitroglycerin This is a 80-year-old female who presents emergency department complaining of chest pain that awoke her in the middle of the night. The patient describes the pain as an ache with no radiation. Her then gave Her-2 nitro glycerin which took the pain away. The patient then became nauseated and weak and vomited. The patient recently had a hospitalization for infected kidney stone as well as urosepsis. Home Medications Home Medications Medication Instructions Recorded Confirmed Type aspirin 81 mg tablet,delayed 81 mg PO DAILY tab 05/25/19 05/26/20 History release biotin 5 mg tablet 5 tab PO DAILY tab 05/25/19 05/26/20 History fentanyl 25 mcg/hr transdermal 1 patch TD .COMPLEX ea 05/25/19 05/26/20 History patch pioglitazone 15 mg tablet 15 mg PO DAILY tab 05/25/19 05/26/20 History warfarin 1 mg tablet 0 mg PO DAILY tab 05/25/19 05/26/20 History buspirone 10 mg tablet 10 mg PO BID PRN 09/03/19 05/26/20 History carbamazepine 200 mg tablet 200 mg PO DAILY tab 09/03/19 05/26/20 History dulaglutide 1.5 mg/0.5 mL 0 mg SQ WEEKLY ml 09/03/19 05/26/20 History subcutaneous pen injector gabapentin 800 mg tablet 800 mg PO TID #270 tab 09/03/19 05/26/20 Rx glipizide 10 mg tablet 10 mg PO BID 09/03/19 05/26/20 History levothyroxine 100 mcg tablet 100 mcg PO DAILY 09/03/19 05/26/20 History lorazepam 0.5 mg tablet 0.5 mg PO DAILY PRN 09/03/19 05/26/20 History metformin 500 mg tablet 500 mg PO BID 09/03/19 05/26/20 History nitroglycerin 0.4 mg sublingual 0.4 mg SL Q5M PRN 09/03/19 05/26/20 History tablet acetaminophen [Tylenol] 650 mg PO Q6 PRN 09/19/19 05/26/20 History ergocalciferol (vitamin D2) 1,250 mcg PO WK 09/19/19 05/26/20 History [Vitamin D2] folic acid 0.4 mg PO DAILY 09/19/19 05/26/20 History promethazine 12.5 mg PO DAILY 09/19/19 05/26/20 History senna 8.6 mg PO BID PRN 09/19/19 05/26/20 History Linzess 0 mcg PO DAILY 05/13/20 05/26/20 History furosemide 40 mg PO DAILY PRN 05/13/20 05/26/20 History isosorbide mononitrate 120 mg PO DAILY 05/13/20 05/26/20 History ondansetron HCl 4 mg PO DAILY 05/13/20 05/26/20 History rosuvastatin 5 mg PO DAILY 05/13/20 05/26/20 History amiodarone 200 mg PO BID #60 tab 05/21/20 05/26/20 Rx cefdinir 300 mg PO DAILY #14 cap 05/21/20 05/26/20 Rx enoxaparin [Lovenox] 80 mg SUBCUT DAILY #8 ml 05/21/20 05/26/20 Rx metoprolol succinate 50 mg PO BID #60 tab 05/21/20 05/26/20 Rx nitrofurantoin macrocrystal 50 mg PO HS #30 cap 05/22/20 05/26/20 Rx [Macrodantin] Allergies Allergy/AdvReac Type Severity Reaction Status Date / Time allopurinol Allergy Unknown COUGH Verified 05/26/20 08:21 blue dye Allergy Unknown BRILLIANT Verified 05/26/20 08:21 BLUE FCF dimethyl fumarate Allergy Unknown UNKNOWN Verified 05/26/20 08:21 Past Med/Surg History Medical History CAD (coronary artery disease) July 2009 -NSTEMI 2009-2 KYLER to circumflex obtuse marginal, 1 KYLER to RCA Carotid artery stenosis CKD (chronic kidney disease), stage III DM type 2 (diabetes mellitus, type 2) Dyslipidemia History of DVT (deep vein thrombosis) Hypertension Hypothyroidism Interstitial lung disease Legally blind Multiple sclerosis Seizure disorder Surgical History History of hysterectomy History of tonsillectomy Hx of cholecystectomy Family History Mother Heart disease Social History Smoking Status: Never smoker Hx Alcohol Use: No Hx Substance Use: No Preferred Language: Albanian Communication Ability: Effective Communication Ability Comment: legally blind Manager Content Required: No Beliefs That Will Affect Care: None Current Living Situation: Spouse and Family Other Information That Helps Us Care for You: No Feels Safe at Home: Yes Safety Concerns: Feels Safe At This Time Assistive Devices: Denture - Upper, Denture - Lower, Oxygen - Continuous, Walker and Wheelchair Physical Exam Vital Signs Vital Signs - 24 hr 05/26/20 07:25 05/26/20 07:39 05/26/20 07:44 Temperature 37.2 C Temperature Source Oral Pulse Rate 60 Pulse Rate [Apical] Pulse Rate from SpO2 Sensor Respiratory Rate 18 Blood Pressure 119/76 Blood Pressure [Left Arm] Blood Pressure Mean 90 Blood Pressure Mean [Left Arm] Pulse Oximetry 87 L 99 87 L Oxygen Delivery Method Room Air Nasal Cannula Nasal Cannula Room Air Oxygen Flow Rate 0 3 Sepsis Recent Fever Within 48 Hours No Sepsis New/Unexplained Change in Mental Status No Sepsis Action Taken by Nursing No Action Required Oxygen Flow Rate - Titration 3 Pulse Oximetry Post Tiitration 99 05/26/20 09:25 05/26/20 11:00 Temperature Temperature Source Pulse Rate 60 Pulse Rate [Apical] 60 Pulse Rate from SpO2 Sensor 61 Respiratory Rate 18 21 Blood Pressure 147/73 H Blood Pressure [Left Arm] 153/67 H Blood Pressure Mean 82 Blood Pressure Mean [Left Arm] 95 Pulse Oximetry 98 99 Oxygen Delivery Method Nasal Cannula Nasal Cannula Oxygen Flow Rate 3 3.5 Sepsis Recent Fever Within 48 Hours Sepsis New/Unexplained Change in Mental Status Sepsis Action Taken by Nursing Oxygen Flow Rate - Titration Pulse Oximetry Post Tiitration Course Administered Medications Aspirin (Aspirin 81 Mg Ectab) 81 mg PO DAILY NATHANIEL Stop: 06/25/20 11:44 Last Admin: 05/26/20 13:39 Dose: 81 mg Documented by: [id number] Carbamazepine (Carbamazepine 200 Mg Tablet) 200 mg PO DAILY NATHANIEL Stop: 06/25/20 12:59 Last Admin: 05/26/20 13:41 Dose: Not Given Documented by: [id number] Enoxaparin Sodium (Enoxaparin 100 Mg/1ml Syr) 90 mg SQ Q12 NATHANIEL Stop: 06/25/20 12:59 Last Admin: 05/26/20 13:40 Dose: 90 mg Documented by: [id number] Fentanyl (Fentanyl 25 Mcg/Hr Tdsy) 25 mcg TD Q72H NATHANIEL Stop: 06/09/20 12:59 Last Admin: 05/26/20 13:40 Dose: 25 mcg Documented by: [id number] Gabapentin (Gabapentin 800 Mg Tab) 800 mg PO TID NATHANIEL Stop: 06/25/20 13:59 Last Admin: 05/26/20 13:41 Dose: 800 mg Documented by: [id number] Miscellaneous (Fentanyl Patch Remove & Waste) 1 ea N/A Q72H NATHANIEL Stop: 06/25/20 12:58 Last Admin: 05/26/20 13:40 Dose: 1 ea Documented by: [id number] Cosigned by: [id number] Discontinued Medications Furosemide (Furosemide 40 Mg/4 Ml Vial) 40 mg IV NOW STA Stop: 05/26/20 09:38 Last Admin: 05/26/20 10:13 Dose: 40 mg Documented by: [id number] Medical Decision Making Differential Diagnosis + fracture of rib, + pneumothorax, + stable angina, + unstable angina pectoris, + atypical chest pain, + st elevation myocardial infarction, + costochondritis, + chest pain, + cardiac ischemia, + myocarditis, + pericarditis, + costochondritis, + pleurisy, + aortic dissection, + pulmonary embolism, + pneumonia and + musculoskeletal Medical Records Attestation: I reviewed the patient's medical records. Home Medications Current Medication List: was personally reviewed by me Laboratory Data Result diagrams: 05/26/20 08:00 05/26/20 08:00 Labs: Lab Results 05/26/20 05/26/20 05/26/20 Range/Units 08:00 08:00 08:00 WBC 11.20 H (4.8-10.8) K/uL RBC 2.62 L (4.2-5.4) M/uL Hgb 8.3 L (12.0-16.0) g/dL Hct 26.2 L (37-47) % MCV 100.0 (80-100) fL MCH 31.7 (25-34) pg MCHC 31.7 L (32-36) g/dL RDW Std Deviation 50.6 H (36.4-46.3) fL RDW Coeff of Gillian 14.1 (11.5-14.5) % Plt Count 309 (130-400) K/uL MPV 10.0 (7.4-10.4) fL Immature Gran % (Auto) 0.4 % Neut % (Auto) 81.0 % Lymph % (Auto) 7.5 % [place] % (Auto) 10.4 % Eos % (Auto) 0.5 % Baso % (Auto) 0.2 % Neut # (Auto) 9.08 H (1.4-6.5) K/uL Lymph # (Auto) 0.84 L (1.2-3.4) K/uL [place] # (Auto) 1.16 H (0.11-0.59) K/uL Eos # (Auto) 0.06 (0-0.5) K/uL Baso # (Auto) 0.02 (0-0.2) K/uL Immature Gran # (Auto) 0.04 H (0.00-0.02) K/uL PT 14.2 H (9.0-12.0) Seconds INR 1.4 H (0.9-1.1) APTT 41.0 H (21.0-31.0) Seconds PTT Ratio 1.5 Sodium 135 L (136-145) mmol/L Potassium 5.4 H (3.5-5.1) mmol/L Chloride 98 (98-107) mmol/L Carbon Dioxide 25 (21-32) mmol/L Anion Gap 12.0 H (3-11) BUN 21 H (7-18) mg/dl Creatinine 1.41 H (0.6-1.2) mg/dl Est Cr Clr Drug Dosing 32.7 ml/min Est GFR ( Amer) 41.0 Est GFR (Non-Af Amer) 35.3 BUN/Creatinine Ratio 14.8 (10-20) Glucose 130 H (70-99) mg/dl Calcium 9.7 (8.5-10.1) mg/dl Total Bilirubin 0.5 (0.2-1) mg/dl AST 17 (15-37) U/L ALT 23 (12-78) U/L Alkaline Phosphatase 47 (45-117) U/L Total Creatine Kinase 46 (26-192) U/L CK-MB (CK-2) < 1.0 (0.5-3.6) ng/ml CK/CKMB % Calc TNP Troponin I 0.028 (0-0.045) ng/ml NT-Pro-B Natriuret Pep 7491 H (0-1800) pg/ml Total Protein 7.0 (6.4-8.2) gm/dl Albumin 2.7 L (3.4-5.0) gm/dl Globulin 4.3 H (2.5-4.0) gm/dl Albumin/Globulin Ratio 0.6 L (0.9-2) Lipase 151 (73-393) U/L Urine Color Urine Appearance (Clear) Urine pH (4.5-7.5) Ur Specific Bricelyn (1.000-1.030) Urine Protein (Negative) Urine Glucose (UA) (Negative) Urine Ketones (Negative) Urine Blood (Negative) Urine Nitrite (Negative) Urine Bilirubin (Negative) Urine Urobilinogen (Negative) Ur Leukocyte Esterase (Negative) Urine WBC (Auto) (0-5) /hpf Urine RBC (Auto) (0-4) /hpf U Hyaline Cast (Auto) (0-5) /lpf U Epithel Cells (Auto) (0-5) /lpf Urine Bacteria (Auto) (Negative) Ur Renal Epithelial Cell Blood Type Antibody Screen 05/26/20 05/26/20 Range/Units 08:20 09:50 WBC (4.8-10.8) K/uL RBC (4.2-5.4) M/uL Hgb (12.0-16.0) g/dL Hct (37-47) % MCV (80-100) fL MCH (25-34) pg MCHC (32-36) g/dL RDW Std Deviation (36.4-46.3) fL RDW Coeff of Gillian (11.5-14.5) % Plt Count (130-400) K/uL MPV (7.4-10.4) fL Immature Gran % (Auto) % Neut % (Auto) % Lymph % (Auto) % [place] % (Auto) % Eos % (Auto) % Baso % (Auto) % Neut # (Auto) (1.4-6.5) K/uL Lymph # (Auto) (1.2-3.4) K/uL [place] # (Auto) (0.11-0.59) K/uL Eos # (Auto) (0-0.5) K/uL Baso # (Auto) (0-0.2) K/uL Immature Gran # (Auto) (0.00-0.02) K/uL PT (9.0-12.0) Seconds INR (0.9-1.1) APTT (21.0-31.0) Seconds PTT Ratio Sodium (136-145) mmol/L Potassium (3.5-5.1) mmol/L Chloride (98-107) mmol/L Carbon Dioxide (21-32) mmol/L Anion Gap (3-11) BUN (7-18) mg/dl Creatinine (0.6-1.2) mg/dl Est Cr Clr Drug Dosing ml/min Est GFR ( Amer) Est GFR (Non-Af Amer) BUN/Creatinine Ratio (10-20) Glucose (70-99) mg/dl Calcium (8.5-10.1) mg/dl Total Bilirubin (0.2-1) mg/dl AST (15-37) U/L ALT (12-78) U/L Alkaline Phosphatase (45-117) U/L Total Creatine Kinase (26-192) U/L CK-MB (CK-2) (0.5-3.6) ng/ml CK/CKMB % Calc Troponin I (0-0.045) ng/ml NT-Pro-B Natriuret Pep (0-1800) pg/ml Total Protein (6.4-8.2) gm/dl Albumin (3.4-5.0) gm/dl Globulin (2.5-4.0) gm/dl Albumin/Globulin Ratio (0.9-2) Lipase (73-393) U/L Urine Color Yellow Urine Appearance Cloudy A (Clear) Urine pH 5.5 (4.5-7.5) Ur Specific Bricelyn 1.017 (1.000-1.030) Urine Protein 2+ H (Negative) Urine Glucose (UA) Negative (Negative) Urine Ketones Negative (Negative) Urine Blood 2+ H (Negative) Urine Nitrite Negative (Negative) Urine Bilirubin Negative (Negative) Urine Urobilinogen Negative (Negative) Ur Leukocyte Esterase 1+ H (Negative) Urine WBC (Auto) >30 H (0-5) /hpf Urine RBC (Auto) 5-10 H (0-4) /hpf U Hyaline Cast (Auto) 1-5 (0-5) /lpf U Epithel Cells (Auto) >30 H (0-5) /lpf Urine Bacteria (Auto) 1+ H (Negative) Ur Renal Epithelial Cell Not Reportable Blood Type A Positive Antibody Screen NEGATIVE Imaging Data CT scan - abdomen: Radiologist's impression: [place] [phone] CT Scan Report Patient: LAURYN JO Date: 05/26/20 MR#: [id number]: [address] Acct ID:[id number]: Date: [address] [place] [address] Zip: [place] [address] Age: 80Location: ED Sex: FRoom/Bed: Att Phy:Diagnosis: CHEST PAIN Karlee Phy: Chris Reis-CService Date: 05/26/20 Fam Phy:Interpreting Phy: Adam Khoury MD Admit Phy: Ordering Phy: Vanessa Scruggs MD cc: ~ CT SCAN OF THE ABDOMEN AND PELVIS WITHOUT CONTRAST CLINICAL HISTORY: vomiting, epigastric pain COMPARISON STUDY: 05/14/2020 TECHNIQUE: CT scan of the abdomen and pelvis was performed from the lung bases to the proximal femurs. Images are reviewed in the axial, sagittal, and coronal planes. IV contrast was not administered for this examination. A dose lowering technique was utilized adhering to the principles of ALARA. CT DOSE: 800.50 mGy.cm FINDINGS: Lower chest: There are coronary artery calcifications. There are small bilateral pleural effusions right greater than left. There are basilar airspace opacities, likely atelectatic. There are subtle groundglass opacities within the right middle lobe and lower lobe possibly representing edema. There is mild interlobular septal thickening. Liver: The unenhanced liver is normal in size, contour, and attenuation. There is no intrahepatic biliary ductal dilatation. Gallbladder: Surgically absent Spleen: Normal in size and attenuation. Pancreas: Unremarkable. Adrenal glands: Unremarkable. Kidneys: There is no hydronephrosis. There is a 3 mm calculus in the right renal pelvis. There is a 2 mm upper pole right renal calculus. There is a 2 mm lower pole right renal calculus. There is an indwelling right-sided nephroureteral stent. Bowel: There are no transition zones indicate bowel obstruction. By history the appendix is surgically absent. There is colonic diverticulosis. There is no evidence of acute diverticulitis. Peritoneum: There is no intraperitoneal free air or abdominal ascites. There is a tiny fat-containing ventral hernia Vasculature: The abdominal aorta is normal in course and caliber. Adenopathy: None. Pelvic viscera: There is a joint Gonzalez catheter. There is air within the bladder which is felt to be iatrogenic. Uterus appears surgically absent. Skeletal structures: No destructive osseous lesions are seen. IMPRESSION: 1. Bilateral nephrolithiasis. 2. Interval placement of a double pigtail right-sided nephroureteral stent 3. Tiny fat-containing ventral hernia 4. No evidence of bowel obstruction. No evidence of free air 5. Diverticulosis. No evidence of acute diverticulitis 6. Interval development of small bilateral pleural effusions. Congestive failure/fluid overload suspected. ACT 112: Negative or not required by law. Chest x-ray: [phone] XRay Report Patient: LAURYN JOmarilyn Date: 05/26/20 MR#: [id number]: [address] Acct ID:[id number]: Date: 1940[facility] [address] Age: 80Location: ED Sex: FRoom/Bed: Att Phy:Diagnosis: CHEST PAIN Karlee Phy: Chris Reis-CService Date: 05/26/20 Fam Phy:Interpreting Phy: Adam Khoury MD Admit Phy: Ordering Phy: Odell Naqvi MD cc: ~ XR chest 1V portable CLINICAL HISTORY: Atypical chest pain COMPARISON STUDY: 05/15/2020 FINDINGS: There is mildly enlarged. There is mild mediastinal fullness. Underlying adenopathy cannot be excluded. There are bilateral pulmonary opacities similar to the preceding study. This could represent pulmonary edema or a bilateral infectious/inflammatory process. There are no large pleural effusions.[ IMPRESSION: 1. Persistent bilateral pulmonary airspace opacities. This could represent pulmonary edema, or a bilateral infectious/inflammatory process. Clinical correlation radiographic follow-up recommended 2. Mild mediastinal fullness. Adenopathy cannot be excluded ACT 112: Negative or not required by law. Electronically signed by: Adam Khoury M.D. 05/26/2020 8:02 AM Dictated: 05/26/20 0800 Transcribed: 05/26/20 0800 ECG Data Attestation: I personally reviewed and interpreted this ECG as follows: Indication: chest pain Rate (beats per minute): 60 Rhythm: normal sinus Findings: + 1st degree AV block; no ST depression and no ST elevation Comparison ECG Date: from (05/18/2020) Change: the following changes noted (Sinus has replaced a fib) MDM Narrative Patient was seen and evaluated as above in room A10. Review was performed of nursing notes and vital signs. I did review pertinent previous visits and patient history. After obtaining a thorough history and physical examination the above work up was performed. This is a 80-year-old female who presents emergency department complaining of chest pain that was relieved by nitro this morning. Patient appears to be volume overloaded on CAT scan therefore she was given Lasix here. I did discuss the case with the hospitalist service who did agree to admit the patient. Patient's troponin is not quite 0. An order was placed for continuous cardiac monitoring. The monitor shows a rate of 62 with Normal SInus rhythm. The patient was evaluated during the global COVID-19 pandemic, and that diagnosis was suspected/considered upon their initial presentation. Their evaluation, treatment and testing was consistent with current guidelines for patients who present with complaints or symptoms that may be related to COVID- 19. Impression & Plan Chest pain, Unstable angina, Anemia Discharge Plan Visit Data Chief Complaint: Chest Pain ED Provider: Odell Naqvi Discharge Problem: Chest pain, Unstable angina, Anemia Patient Disposition: Admitted As Inpatient Discharge Instructions Interventions: ED Discharge Assessment Last Done: 05/26/20 11:49 Discharge Problem: Chest pain Qualifiers: Chest pain type: unspecified Qualified Code(s): R07.9 - Chest pain, unspecified Anemia Qualifiers: Anemia type: unspecified type Qualified Code(s): D64.9 - Anemia, unspecified
--- NOTE | 2020-05-26 08:03 | XRay Report ---
XR chest 1V portable CLINICAL HISTORY: Atypical chest pain COMPARISON STUDY: 05/15/2020 FINDINGS: There is mildly enlarged. There is mild mediastinal fullness. Underlying adenopathy cannot be excluded. There are bilateral pulmonary opacities similar to the preceding study. This could repre sent pulmonary edema or a bilateral infectious/inflammatory process. There are no large pleural effus ions.[ IMPRESSION: 1. Persistent bilateral pulmonary airspace opacities. This could represent pulmonary edema, or a bila teral infectious/inflammatory process. Clinical correlation radiographic follow-up recommended 2. Mild mediastinal fullness. Adenopathy cannot be excluded ACT 112: Negative or not required by law. Electronically signed by: Adam Khoury M.D. 05/26/2020 8:02 AM
[2020-05-26 08:29] LABS: Appearance Urine Cloudy (Clear); Bilirubin Urine Negative (Negative); Blood Urine 2+ (Negative); Color Urine Yellow; Epithelial Cell Urine Auto >30 /lpf (0-5); Glucose Urine UA Negative (Negative); Ketones Urine Negative (Negative); Leukocyte Esterase Urine 1+ (Negative); Nitrite Urine Negative (Negative); Protein Urine 2+ (Negative); Specific Gravity Urine 1.017 (1.000-1.030); Urobilinogen Urine Negative (Negative); pH Urine 5.5 (4.5-7.5)
[2020-05-26 08:38] LABS: Basophils # (auto) 0.02 K/uL (0-0.2); Basophils % (auto) 0.2 %; Eosinophils # (auto) 0.06 K/uL (0-0.5); Eosinophils % (auto) 0.5 %; Hematocrit (blood only) 26.2 % (37-47); Hemoglobin 8.3 g/dL (12.0-16.0); Immature Granulocytes # (auto) 0.04 K/uL (0.00-0.02); Immature Granulocytes % (auto) 0.4 %; Lymphocytes # (auto) 0.84 K/uL (1.2-3.4); Lymphocytes % (auto) 7.5 %; Mean Corpuscular Hemoglobin 31.7 pg (25-34); Mean Corpuscular Hgb Conc 31.7 g/dL (32-36); Monocytes # (auto) 1.16 K/uL (0.11-0.59); Monocytes % (auto) 10.4 %; Neutrophils # (auto) 9.08 K/uL (1.4-6.5); Platelet Count 309 K/uL (130-400); RDW Coefficient of Variation 14.1 % (11.5-14.5); RDW Standard Deviation 50.6 fL (36.4-46.3); Red Blood Count 2.62 M/uL (4.2-5.4)
[2020-05-26 08:51] LABS: Bacteria Urine Automated 1+ (Negative); WBC Urine Automated >30 /hpf (0-5)
[2020-05-26 08:56] LABS: INR 1.4 (0.9-1.1); Partial Thromboplastin Ratio 1.5; Prothrombin Time 14.2 Seconds (9.0-12.0)
[2020-05-26 09:25] LABS: Alanine Aminotransferase 23 U/L (12-78); Albumin Level 2.7 gm/dl (3.4-5.0); Aspartate Aminotransferase 17 U/L (15-37); BUN Creatinine Ratio 14.8 (10-20); Blood Urea Nitrogen 21 mg/dl (7-18); Calcium 9.7 mg/dl (8.5-10.1); Carbon Dioxide 25 mmol/L (21-32); Chloride 98 mmol/L (98-107); Creatinine Clr Calc Pharmacy 32.7 ml/min; Est GFR (Non-African American) 35.3; Glucose 130 mg/dl (70-99); Lipase 151 U/L (73-393); Potassium 5.4 mmol/L (3.5-5.1); Sodium 135 mmol/L (136-145)
[2020-05-26 09:30] LABS: Albumin Globulin Ratio 0.6 (0.9-2); Alkaline Phosphatase 47 U/L (45-117); Bilirubin,Total 0.5 mg/dl (0.2-1); Creatine Kinase 46 U/L (26-192); Creatine Kinase MB < 1.0 ng/ml (0.5-3.6); Globulin 4.3 gm/dl (2.5-4.0); NT Pro B Type Natriuretic Pept 7491 pg/ml (0-1800); Troponin I 0.028 ng/ml (0-0.045)
[2020-05-26] MEDS ORDERED: FUROSEMIDE 40 MG/4 ML VIAL IV STA ×2 (09:37→12:39)
--- NOTE | 2020-05-26 09:39 | Electrocardiogram Report ---
Test Reason : Blood Pressure : / mmHG Vent. Rate : 060 BPM Atrial Rate : 060 BPM P-R Int : 226 ms QRS Dur : 090 ms QT Int : 440 ms P-R-T Axes : 091 018 005 degrees QTc Int : 440 ms Poor data quality, interpretation may be adversely affected Sinus rhythm with 1st degree A-V block T wave abnormality, consider lateral ischemia Abnormal ECG When compared with ECG of 18-MAY-2020 21:59, Sinus rhythm has replaced Atrial fibrillation Vent. rate has decreased BY 38 BPM T wave inversion less evident in Lateral leads QT has shortened Confirmed by Nirmal Cummins ([id number]) on 05/26/2020 9:39:46 AM Referred By: REFERRED SELF Confirmed By:Nirmal Cummins
--- NOTE | 2020-05-26 09:40 | History & Physical Report ---
Date of Service May 26, 2020 Assessment & Plan (1) Chronic diastolic heart failure: (2) Paroxysmal atrial fibrillation: -Lovenox bridging to Coumadin -Continue metoprolol XL 50 p.o. BID -Follow daily INR, currently 1.4 on admission (3) NSTEMI (non-ST elevated myocardial infarction): -Diagnosed during last admission with elevated troponin, in the setting of longstanding CAD. Cardiac cath was deferred at that point in time due to risk being greater than the benefits in light of her recent bacteremia, ureteral stent placement, diminished kidney function and multiple comorbidities, decompensated CHF, -Was scheduled to follow-up with Dr. Borja within the week after discharge -Continue aspirin, statin, Imdur, & metoprolol. (4) CAD (coronary artery disease): -Medications as above (5) Hypertension: -BP 153/67, continue Metoprolol -Had held HCTZ and lisinopril on discharge during last admission, did not resume (6) Acute on chronic respiratory failure with hypoxia: -Continue 3 LNC, which is her baseline -CXR showing pulmonary congestion, appears worse compared to previous CXR (7) Interstitial lung disease: (8) DM type 2 (diabetes mellitus, type 2): -A1c = 6.8 during last admission -ISS with Accu-Cheks ACHS -Hold glipizide, metformin for now (9) CKD (chronic kidney disease), stage III: -Baseline creatinine 1.3-1.5, creatinine 1.41 on admission, at baseline -S/p right-sided ureteral stent placed by Dr. Salvador on 05/15/2020, anticipate stent removal in approximately 1 to 2 weeks -Follow-up with urology as outpatient (10) Anemia: -Hemoglobin of 8.3 on admission, appears that she was around 9.5-10 on last admission, possibly secondary to fluid hydration and frequent blood draws during last admission. No need for blood transfusion at this time, guaiac stools. -Chronic secondary to CKD (11) Hypothyroidism: -Continue levothyroxine 100 mcg daily, TSH during last admission on 05/13 = 4.8 (12) Multiple sclerosis: -Noted, follows with Dr. Pierce, neurology as outpatient. -PT/OT (13) Essential tremor: -Noted history of parkinsonian features, needs metoprolol for PAF for rate control in lieu of propranolol. (14) Seizure disorder: (15) Urinary tract infection: -UA appears better compared to previous admission, follow culture to be complete -Previously grew E. coli-- cont cefdinir 300 mg daily for 2 weeks * started , continue, was reduced due to renal function -Complicated by nephrolithiasis on the right and septicemia. (16) Right ureteral stone: - As above (17) Legally blind: - Noted (18) DVT prophylaxis: - teds, warfarin CODE: Dispo: From home, likely to remain in the hospital x 1-2 days History of Present Illness Primary Care Provider: Chris Reis This is a 80-year-old female with PMHx of multiple sclerosis, CAD (3 stents in 2009) on anticoagulation, diastolic CHF, paroxysmal A. fib, DM type II, CKD stage III, history of DVT, interstitial lung disease on 3 to 3.5 L NC at baseline, acute on chronic respiratory failure with hypoxia, lumbar r adiculopathy, chronic leg and back pain, fine arm tremor secondary to MS, hypothyroidism, and nephrolithiasis s/p ureteral stent. She recently was admitted for sepsis secondary to UTI, fall and NSTEMI from 05/13/2020 through 05/22/2020 and was discharged home with home health services. Allergies Allergy/AdvReac Type Severity Reaction Status Date / Time allopurinol Allergy Unknown COUGH Verified 05/26/20 08:21 blue dye Allergy Unknown BRILLIANT Verified 05/26/20 08:21 BLUE FCF dimethyl fumarate Allergy Unknown UNKNOWN Verified 05/26/20 08:21 Home Medications Home Medications Medication Instructions Recorded Confirmed Type aspirin 81 mg tablet,delayed 81 mg PO DAILY tab 05/25/19 05/26/20 History release biotin 5 mg tablet 5 tab PO DAILY tab 05/25/19 05/26/20 History fentanyl 25 mcg/hr transdermal 1 patch TD .COMPLEX ea 05/25/19 05/26/20 History patch pioglitazone 15 mg tablet 15 mg PO DAILY tab 05/25/19 05/26/20 History warfarin 1 mg tablet 0 mg PO DAILY tab 05/25/19 05/26/20 History buspirone 10 mg tablet 10 mg PO BID PRN 09/03/19 05/26/20 History carbamazepine 200 mg tablet 200 mg PO DAILY tab 09/03/19 05/26/20 History dulaglutide 1.5 mg/0.5 mL 0 mg SQ WEEKLY ml 09/03/19 05/26/20 History subcutaneous pen injector gabapentin 800 mg tablet 800 mg PO TID #270 tab 09/03/19 05/26/20 Rx glipizide 10 mg tablet 10 mg PO BID 09/03/19 05/26/20 History levothyroxine 100 mcg tablet 100 mcg PO DAILY 09/03/19 05/26/20 History lorazepam 0.5 mg tablet 0.5 mg PO DAILY PRN 09/03/19 05/26/20 History metformin 500 mg tablet 500 mg PO BID 09/03/19 05/26/20 History nitroglycerin 0.4 mg sublingual 0.4 mg SL Q5M PRN 09/03/19 05/26/20 History tablet acetaminophen [Tylenol] 650 mg PO Q6 PRN 09/19/19 05/26/20 History ergocalciferol (vitamin D2) 1,250 mcg PO WK 09/19/19 05/26/20 History [Vitamin D2] folic acid 0.4 mg PO DAILY 09/19/19 05/26/20 History promethazine 12.5 mg PO DAILY 09/19/19 05/26/20 History senna 8.6 mg PO BID PRN 09/19/19 05/26/20 History Linzess 0 mcg PO DAILY 05/13/20 05/26/20 History furosemide 40 mg PO DAILY PRN 05/13/20 05/26/20 History isosorbide mononitrate 120 mg PO DAILY 05/13/20 05/26/20 History ondansetron HCl 4 mg PO DAILY 05/13/20 05/26/20 History rosuvastatin 5 mg PO DAILY 05/13/20 05/26/20 History amiodarone 200 mg PO BID #60 tab 05/21/20 05/26/20 Rx cefdinir 300 mg PO DAILY #14 cap 05/21/20 05/26/20 Rx enoxaparin [Lovenox] 80 mg SUBCUT DAILY #8 ml 05/21/20 05/26/20 Rx metoprolol succinate 50 mg PO BID #60 tab 05/21/20 05/26/20 Rx nitrofurantoin macrocrystal 50 mg PO HS #30 cap 05/22/20 05/26/20 Rx [Macrodantin] Past Med/Surg History Medical History (Updated 05/26/20 @ 09:48 by Vanessa Bales PA-C) CAD (coronary artery disease) July 2009 -NSTEMI 2009-2 KYLER to circumflex obtuse marginal, 1 KYLER to RCA Carotid artery stenosis CKD (chronic kidney disease), stage III DM type 2 (diabetes mellitus, type 2) Dyslipidemia History of DVT (deep vein thrombosis) Hypertension Hypothyroidism Interstitial lung disease Legally blind Multiple sclerosis Seizure disorder Surgical History History of hysterectomy History of tonsillectomy Hx of cholecystectomy Family History Mother Heart disease Social History Smoking Status: Never smoker Hx Alcohol Use: No Hx Substance Use: No Preferred Language: Syriac Communication Ability: Effective Communication Ability Comment: legally blind Radial Router Operator Required: No Beliefs That Will Affect Care: None Current Living Situation: Spouse and Family Other Information That Helps Us Care for You: No Feels Safe at Home: Yes Safety Concerns: Feels Safe At This Time Assistive Devices: Denture - Upper, Denture - Lower, Oxygen - Continuous, Walker and Wheelchair Results & Data Results & Data ([facility]) Vital Signs (Past 12 Hours) Vital Signs Temp Pulse Resp BP Pulse Ox 05/26/20 07:44 37.2 C 60 18 119/76 87 L 05/26/20 07:39 99 05/26/20 07:25 87 L Diagnostic Findings XR chest 1V portable CLINICAL HISTORY: Atypical chest pain COMPARISON STUDY: 05/15/2020 FINDINGS: There is mildly enlarged. There is mild mediastinal fullness. Underlying adenopathy cannot be excluded. There are bilateral pulmonary opacities similar to the preceding study. This could represent pulmonary edema or a bilateral infectious/inflammatory process. There are no large pleural effusions.[ IMPRESSION: 1. Persistent bilateral pulmonary airspace opacities. This could represent pulmonary edema, or a bilateral infectious/inflammatory process. Clinical correlation radiographic follow-up recommended 2. Mild mediastinal fullness. Adenopathy cannot be excluded PG Care Time/CCT Total # of Minutes Spent Total Time Spent with Patient: Total time spent is greater than 50% in c oordination of care (as documented) at patient's floor/unit and/or counseling patient: Coding Diagnoses Chronic diastolic heart failure I50.32 Paroxysmal atrial fibrillation I48.0 NSTEMI (non-ST elevated myocardial infarction) I21.4 CAD (coronary artery disease) I25.119 Coronary Disease-Associated Artery/Lesion type: [place] artery [place] vs. transplanted heart: [place] heart Associated angina: with unspecified angina Hypertension I10 Hypertension type: essential hypertension Acute on chronic respiratory failure with hypoxia J96.21 Interstitial lung disease J84.9 DM type 2 (diabetes mellitus, type 2) E11.69 Diabetes mellitus intermediate insulin use: without buttermaker helper use Diabetes mellitus complication status: with other specified complication CKD (chronic kidney disease), stage III N18.3 Anemia D64.9 Hypothyroidism E03.9 Hypothyroidism type: acquired Multiple sclerosis G35 Essential tremor G25.0 Seizure disorder G40.909 Urinary tract infection N39.0 Urinary tract infection type: site unspecified Hematuria presence: without hematuria Right ureteral stone N20.1 Legally blind H54.8 DVT prophylaxis Z29.9 (1) Hypertension Hypertension type: essential hypertension Qualified Code(s): I10 - Essential (primary) hypertension (2) CAD (coronary artery disease) Coronary Disease-Associated Artery/Lesion type: [place] artery [place] vs. transplanted heart: [place] heart Associated angina: with unspecified angina Qualified Code(s): I25.119 - Atherosclerotic heart disease of [place] coronary artery with unspecified angina pectoris (3) Hypothyroidism Hypothyroidism type: acquired Qualified Code(s): E03.9 - Hypothyroidism, unspecified (4) Urinary tract infection Urinary tract infection type: site unspecified Hematuria presence: without hematuria Qualified Code(s): N39.0 - Urinary tract infection, site not specified (5) DM type 2 (diabetes mellitus, type 2) Diabetes mellitus buttermaker helper insulin use: without buttermaker helper use Diabetes mellitus complication status: with other specified complication Qualified Code(s): E11.69 - Type 2 diabetes mellitus with other specified complication
--- NOTE | 2020-05-26 11:23 | History & Physical Report ---
Date of Service May 26, 2020 Assessment & Plan (1) Unstable angina: 80 yo F with PMH significant for chronic diastolic CHF, paroxysmal A. fib on Coumadin, interstitial lung disease on chronic O2 3 LNC, CKD stage III, MS, seizure disorder, CAD status post KYLER x3, hypothyroidism, DM 2, H/O recurrent DVT, recently discharged from hospital for kidney stones requiring stent placement and bacteremia secondary to UTI as well as NSTEMI. She presents with unstable angina. Unstable Angina - Troponin 0.028, was 7 with NSTEMI last admission, opted for conservative management without cardiac catheterization at that time given bacteremia and hematuria - EKG showing questionable Afib vs. AV block? no ST segments elevation/depression. repeat EKG ordered. - hx 3 KYLER placed in 2009 - no chest pain currently - Cardiology consulted, appreciate recommendations, Catheterization planned for AM 05/27 - lovenox 1mg/kg BID and hold for cardiac catheterization in the morning - NPO at [place] Syncope - may be orthostatic/vasovagal when she is getting up to the toilet versus arrhythmia versus cardiac ischemia -Echocardiogram without significant valvular disease on recent admission - BP more hypertensive at this time - will get orthostatic vitals -Cardiology recommended lowering the dose of Toprol-XL down to 25 mg twice daily Chronic Anemia -Slowly worsening -Hg 8.3, 9.4 on discharge 05/22 - FOBT negative in ED, no report of hematochezia/hematemesis, - Anemia labs ordered Hx UTI and septicemia 2/2 kidney stone with stent - continue cefdinir 300 mg daily - per urology notes last admission, stent to be removed in 4-6 weeks from insertion - urology consulted given hematuria and complicated course Epigastric pain - similar to previous admission symptoms of CHF overload; resolved after diuresis -Could be related to angina -LFTs and lipase are normal - CT abd/pelv noncon: BL nephrolithiasis, no diverticulitis, CKD stage 3 - Cr 1.4, at baseline - guzman placed in ED Acute on chronic diastolic CHF - ECHO last admission 45-50%, no aortic stenosis, left ventricular hypertrophy and global left ventricular hypokinesis, - peripheral edema on exam, BNP 7.4k, previously 1.5k -Chest x-ray with chronic changes but difficult to rule out pulmonary edema - 1 dose 40 mg IV lasix in ED; will dose Lasix as needed day-to-day - daily I/Os, weights Paroxysmal Afib - warfarin held while on lovenox - PCU monitoring - continue amiodarone 200 mg BID metoprolol 50 mg BID for rhythm/rate control HTN - continue BP meds as above CAD-with history of KYLER x3, here with unstable angina as above - continue aspirin, rosuvastatin, metoprolol, isosorbide DM2 - pioglitazone, metformin, glipizide from home held - insulin sliding scale, will need to calc basal req going forward - A1c 6.8 last admission Constipation - sennosides, milk of mag, miralax ordered MS+ Seizure disorder - known to Dr. Pierce - continue carbamazepine, promethazine per home regimen ILD/chronic respiratory failure with hypoxia - on home o2 requirement of 3L NC, will monitor Legally blind - noted Lumbar and cervical radiculopathy - chronically on fentanyl patch for radicular pain control Hypothyroidism -TSH was recently normal -Continue home levothyroxine History of recurrent DVT -Continue bridging Lovenox but hold Coumadin for now for cardiac catheterization -Follow PT/INR in the morning FEN/GI: diabetic diet, NPO at [place] DVT ppx: therapeutic lovenox Code Status: DNR/DNI Dispo: PCU/Tele (2) Syncope: (3) Chronic diastolic heart failure: (4) Paroxysmal atrial fibrillation: (5) Right ureteral stone: (6) Essential tremor: (7) Legally blind: (8) CKD (chronic kidney disease), stage III: (9) Multiple sclerosis: (10) Seizure disorder: (11) History of DVT (deep vein thrombosis): (12) DM type 2 (diabetes mellitus, type 2): (13) Hypertension: (14) Interstitial lung disease: (15) CAD (coronary artery disease): History of Present Illness Chief Complaint: Syncope Primary Care Provider: Chris Reis Patient is a 80-year-old female with a past medical history of chronic diastolic CHF, paroxysmal A. fib on Coumadin, interstitial lung disease on chronic O2 3 LNC, CKD stage III, MS, seizure disorder, CAD status post KYLER x3, hypothyroidism, DM 2, H/O recurrent DVT, recently discharged from hospital for kidney stones requiring stent placement and bacteremia secondary to UTI as well as NSTEMI. She presented to the emergency department this morning with concern for chest pain and syncopal episode she was having at home. Chest pain started last night and was in her middle of her chest without radiation a pressure sensation that was relieved with nitroglycerin. She says that since coming home from the hospital she has had multiple episodes of syncope notably when she is either going to the bathroom or getting up from the bathroom. She states that she is unable to get up and walk around on her own and therefore cannot do much by herself however that is baseline for her. She denies any increasing fatigue or dizziness. She denies any visual blackouts prior to the syncopal episodes however patient is blind. She denies any current chest pain or any change in difficulty breathing. Allergies Allergy/AdvReac Type Severity Reaction Status Date / Time allopurinol Allergy Unknown COUGH Verified 05/26/20 08:21 blue dye Allergy Unknown BRILLIANT Verified 05/26/20 08:21 BLUE FCF dimethyl fumarate Allergy Unknown UNKNOWN Verified 05/26/20 08:21 Home Medications Home Medications Medication Instructions Recorded Confirmed Type aspirin 81 mg tablet,delayed 81 mg PO DAILY tab 05/25/19 05/26/20 History release biotin 5 mg tablet 5 tab PO DAILY tab 05/25/19 05/26/20 History fentanyl 25 mcg/hr transdermal 1 patch TD .COMPLEX ea 05/25/19 05/26/20 History patch pioglitazone 15 mg tablet 15 mg PO DAILY tab 05/25/19 05/26/20 History warfarin 1 mg tablet 0 mg PO DAILY tab 05/25/19 05/26/20 History buspirone 10 mg tablet 10 mg PO BID PRN 09/03/19 05/26/20 History carbamazepine 200 mg tablet 200 mg PO DAILY tab 09/03/19 05/26/20 History dulaglutide 1.5 mg/0.5 mL 0 mg SQ WEEKLY ml 09/03/19 05/26/20 History subcutaneous pen injector gabapentin 800 mg tablet 800 mg PO TID #270 tab 09/03/19 05/26/20 Rx glipizide 10 mg tablet 10 mg PO BID 09/03/19 05/26/20 History levothyroxine 100 mcg tablet 100 mcg PO DAILY 09/03/19 05/26/20 History lorazepam 0.5 mg tablet 0.5 mg PO DAILY PRN 09/03/19 05/26/20 History metformin 500 mg tablet 500 mg PO BID 09/03/19 05/26/20 History nitroglycerin 0.4 mg sublingual 0.4 mg SL Q5M PRN 09/03/19 05/26/20 History tablet acetaminophen [Tylenol] 650 mg PO Q6 PRN 09/19/19 05/26/20 History ergocalciferol (vitamin D2) 1,250 mcg PO WK 09/19/19 05/26/20 History [Vitamin D2] folic acid 0.4 mg PO DAILY 09/19/19 05/26/20 History promethazine 12.5 mg PO DAILY 09/19/19 05/26/20 History senna 8.6 mg PO BID PRN 09/19/19 05/26/20 History Linzess 0 mcg PO DAILY 05/13/20 05/26/20 History furosemide 40 mg PO DAILY PRN 05/13/20 05/26/20 History isosorbide mononitrate 120 mg PO DAILY 05/13/20 05/26/20 History ondansetron HCl 4 mg PO DAILY 05/13/20 05/26/20 History rosuvastatin 5 mg PO DAILY 05/13/20 05/26/20 History amiodarone 200 mg PO BID #60 tab 05/21/20 05/26/20 Rx cefdinir 300 mg PO DAILY #14 cap 05/21/20 05/26/20 Rx enoxaparin [Lovenox] 80 mg SUBCUT DAILY #8 ml 05/21/20 05/26/20 Rx metoprolol succinate 50 mg PO BID #60 tab 05/21/20 05/26/20 Rx nitrofurantoin macrocrystal 50 mg PO HS #30 cap 05/22/20 05/26/20 Rx [Macrodantin] Past Med/Surg History Medical History CAD (coronary artery disease) July 2009 -NSTEMI 2009-2 KYLER to circumflex obtuse marginal, 1 KYLER to RCA Carotid artery stenosis CKD (chronic kidney disease), stage III DM type 2 (diabetes mellitus, type 2) Dyslipidemia History of DVT (deep vein thrombosis) Hypertension Hypothyroidism Interstitial lung disease Legally blind Multiple sclerosis Seizure disorder Surgical History History of hysterectomy History of tonsillectomy Hx of cholecystectomy Family History Mother Heart disease Social History Smoking Status: Never smoker Hx Alcohol Use: No Hx Substance Use: No Preferred Language: Ukrainian Communication Ability: Effective Communication Ability Comment: legally blind Csm Consultant Required: No Beliefs That Will Affect Care: None Current Living Situation: Spouse and Family Other Information That Helps Us Care for You: No Feels Safe at Home: Yes Safety Concerns: Feels Safe At This Time Assistive Devices: Denture - Upper, Denture - Lower, Oxygen - Continuous, Walker and Wheelchair Review of Systems Constitutional: no fever, no body aches, no fatigue and no weakness Respiratory: no cough, no dyspnea and no pain on inspiration Cardiovascular: + chest pain; no dyspnea, no orthopnea, no palpitations, no lightheadedness and no edema Gastrointestinal: + vomiting and + constipation; no nausea, no coffee ground emesis, no hematemesis, no cramping, no diarrhea/loose stools and no blood in st ools Genitourinary: no hematuria Neurologic: + unsteadiness and + falls Physical Exam Physical Exam: Constitutional: obese, in no apparent distress, sitting comfortably in bed. HENT: normocephalic, nontender, Eyes: EOMI, pupils equal and reactive bilaterally, no scleral icterus Cardiac: RRR, no murmurs, gallops or rubs. Normal S1, S2 Pulm: CTA BL, no wheezes, rhonchi. fine crackles present at bases of both lungs. moving air well throughout. Abd: soft, highly tender in epigastric region, mild LLQ TTP, no suprapubic or RLQ tenderness. no rebound, no guarding. Extremities: poor peripheral pulses, 1+ pitting edema at ankles bilaterally : guzman placed in ED Psych: conversant, mood and affect congruent, Neuro: A&Ox3, moving both upper limbs, parkinsonian gian-facial movements, resting tremor Results & Data Results & Data ([facility]) Vital Signs (Past 12 Hours) Vital Signs Temp Pulse Pulse Resp BP BP Pulse Ox 05/26/20 09:25 60 18 153/67 H 98 05/26/20 07:44 37.2 C 60 18 119/76 87 L 05/26/20 07:39 99 05/26/20 07:25 87 L Laboratory Results WBC 11.20 K/uL (4.8-10.8) H 05/26/20 08:00 RBC 2.62 M/uL (4.2-5.4) L 05/26/20 08:00 Hgb 8.3 g/dL (12.0-16.0) L 05/26/20 08:00 Hct 26.2 % (37-47) L 05/26/20 08:00 MCV 100.0 fL (80-100) 05/26/20 08:00 MCH 31.7 pg (25-34) 05/26/20 08:00 MCHC 31.7 g/dL (32-36) L 05/26/20 08:00 RDW Std Deviation 50.6 fL (36.4-46.3) H 05/26/20 08:00 RDW Coeff of Gillian 14.1 % (11.5-14.5) 05/26/20 08:00 Plt Count 309 K/uL (130-400) 05/26/20 08:00 MPV 10.0 fL (7.4-10.4) 05/26/20 08:00 Immature Gran % (Auto) 0.4 % 05/26/20 08:00 Neut % (Auto) 81.0 % 05/26/20 08:00 Lymph % (Auto) 7.5 % 05/26/20 08:00 Petroleum % (Auto) 10.4 % 05/26/20 08:00 Eos % (Auto) 0.5 % 05/26/20 08:00 Baso % (Auto) 0.2 % 05/26/20 08:00 Neut # (Auto) 9.08 K/uL (1.4-6.5) H 05/26/20 08:00 Lymph # (Auto) 0.84 K/uL (1.2-3.4) L 05/26/20 08:00 Petroleum # (Auto) 1.16 K/uL (0.11-0.59) H 05/26/20 08:00 Eos # (Auto) 0.06 K/uL (0-0.5) 05/26/20 08:00 Baso # (Auto) 0.02 K/uL (0-0.2) 05/26/20 08:00 Immature Gran # (Auto) 0.04 K/uL (0.00-0.02) H 05/26/20 08:00 PT 14.2 Seconds (9.0-12.0) H 05/26/20 08:00 INR 1.4 (0.9-1.1) H 05/26/20 08:00 APTT 41.0 Seconds (21.0-31.0) H 05/26/20 08:00 PTT Ratio 1.5 05/26/20 08:00 Sodium 135 mmol/L (136-145) L 05/26/20 08:00 Potassium 5.4 mmol/L (3.5-5.1) H 05/26/20 08:00 Chloride 98 mmol/L (98-107) 05/26/20 08:00 Carbon Dioxide 25 mmol/L (21-32) 05/26/20 08:00 Anion Gap 12.0 (3-11) H 05/26/20 08:00 BUN 21 mg/dl (7-18) H 05/26/20 08:00 Creatinine 1.41 mg/dl (0.6-1.2) H 05/26/20 08:00 Est Cr Clr Drug Dosing 32.7 ml/min 05/26/20 08:00 Est GFR ( Amer) 41.0 05/26/20 08:00 Est GFR (Non-Af Amer) 35.3 05/26/20 08:00 BUN/Creatinine Ratio 14.8 (10-20) 05/26/20 08:00 Glucose 130 mg/dl (70-99) H 05/26/20 08:00 Calcium 9.7 mg/dl (8.5-10.1) 05/26/20 08:00 Total Bilirubin 0.5 mg/dl (0.2-1) 05/26/20 08:00 AST 17 U/L (15-37) 05/26/20 08:00 ALT 23 U/L (12-78) 05/26/20 08:00 Alkaline Phosphatase 47 U/L (45-117) 05/26/20 08:00 Total Creatine Kinase 46 U/L (26-192) 05/26/20 08:00 CK-MB (CK-2) < 1.0 ng/ml (0.5-3.6) 05/26/20 08:00 CK/CKMB % Calc TNP 05/26/20 08:00 Troponin I 0.028 ng/ml (0-0.045) 05/26/20 08:00 NT-Pro-B Natriuret Pep 7491 pg/ml (0-1800) H 05/26/20 08:00 Total Protein 7.0 gm/dl (6.4-8.2) 05/26/20 08:00 Albumin 2.7 gm/dl (3.4-5.0) L 05/26/20 08:00 Globulin 4.3 gm/dl (2.5-4.0) H 05/26/20 08:00 Albumin/Globulin Ratio 0.6 (0.9-2) L 05/26/20 08:00 Lipase 151 U/L (73-393) 05/26/20 08:00 Urine Color Yellow 05/26/20 08:20 Urine Appearance Cloudy (Clear) A 05/26/20 08:20 Urine pH 5.5 (4.5-7.5) 05/26/20 08:20 Ur Specific [place] 1.017 (1.000-1.030) 05/26/20 08:20 Urine Protein 2+ (Negative) H 05/26/20 08:20 Urine Glucose (UA) Negative (Negative) 05/26/20 08:20 Urine Ketones Negative (Negative) 05/26/20 08:20 Urine Blood 2+ (Negative) H 05/26/20 08:20 Urine Nitrite Negative (Negative) 05/26/20 08:20 Urine Bilirubin Negative (Negative) 05/26/20 08:20 Urine Urobilinogen Negative (Negative) 05/26/20 08:20 Ur Leukocyte Esterase 1+ (Negative) H 05/26/20 08:20 Urine WBC (Auto) >30 /hpf (0-5) H 05/26/20 08:20 Urine RBC (Auto) 5-10 /hpf (0-4) H 05/26/20 08:20 U Hyaline Cast (Auto) 1-5 /lpf (0-5) 05/26/20 08:20 U Epithel Cells (Auto) >30 /lpf (0-5) H 05/26/20 08:20 Urine Bacteria (Auto) 1+ (Negative) H 05/26/20 08:20 Ur Renal Epithelial Cell Not Reportable 05/26/20 08:20 Code Status & VTE Plan VTE Prophylaxis Plan VTE Prophylaxis will be ordered: Yes Supervising Physician Co-Signing Physician Notes I personally examined the patient and verified all wright points of history and exam, discussed case, and agree with decision making with Dr. Scruggs with the following additions/exceptions: This patient is a 80-year-old female with history noted as above who presents with several episodes of syncope upon standing and typical chest pain and epigastric pain that was relieved with nitroglycerin overnight. Since recent discharge 4 days ago where she had a prolonged hospitalization for right ureteral stone with stent placement, septicemia, UTI, and STEMI, and new onset atrial fibrillation, she has had several episodes of syncope. She denies any shortness of breath, however her weight is significantly up from previous and her proBNP is also elevated along with some peripheral edema. She was given a dose of IV Lasix in the ER. Her troponin was negative but not undetectable upon arrival. Chest x-ray shows chronic changes but difficult to rule out pulmonary edema. Her ECG showed likely sinus rhythm and no new ischemic changes but has persistent T wave inversions in the precordial leads from last time. Last admission, she was deemed not be a good candidate for cardiac catheterization given her other ongoing acute issues including hematuria and bacteremia. History and ROS reviewed as above Vitals reviewed Gen: AAOx3, NAD HEENT: Anicteric sclerae, EOMI CV: RRR no mgr nl S1S2 Pulm: CTAB no wcr Abd: +BS soft positive tenderness palpation epigastric region without guarding or rebound, ND no masses or hernias Ext: Trace to 1+ pitting edema of the ankles to the mid tibia bilaterally, 2+ DP pulses Skin: No rashes, warm/dry Neuro: Can move all extremities ECG personally reviewed-appears to be an sinus rhythm with at least first-degree AV block, T wave inversions in the precordial leads throughout similar to previous, no ST segment elevation or depression Laboratory values and chest x-ray image also personally reviewed by me 80-year-old female with history of CAD status post KYLER, DM 2, chronic diastolic CHF, paroxysmal atrial fibrillation on Coumadin and amiodarone therapy, CKD stage III, interstitial lung disease on chronic O2, seizure disorder, MS, and recent right ureterolithiasis with stent in place and E. coli septicemia on antibiotics, here with unstable angina and several episodes of syncope. Assessment and plan notations made to resident note as above In brief, will trend serial troponin ECG, consult cardiology for likely cardiac catheterization Continue bridging Lovenox but hold Coumadin for catheterization, hold Lovenox in the morning -Continue home aspirin, statin, decrease dose of metoprolol as per cardiology, continue isosorbide -Monitor on telemetry for arrhythmia -No need for echocardiogram at this time unless desired by cardiology as just had one 1 week ago during NSTEMI -Syncope could be from orthostasis versus arrhythmia or bradycardia-follow on telemetry, lowering dose of metoprolol, and will check orthostatic vital signs -Continue cefdinir for previous E. coli septicemia and has Guzman catheter in place as per ER-would recommend removing Guzman catheter as soon as possible but will defer to urology for further management of ureteral stent, Guzman catheter, and if has recurrent hematuria -For acute on chronic diastolic CHF, she was given 1 dose of IV Lasix in the ER for volume overload-we will hold off on any further IV Lasix at this time Lovenox for DVT prophylaxis Disposition-admit on observation to PCU Resident Activity Tracking Resident Involvement: Resident Care Provided Care Provided: Adult Hospital Medicine (1) DM type 2 (diabetes mellitus, type 2) Diabetes mellitus complication status: with other specified complication Diabetes mellitus fci insulin use: without fci use Qualified Code(s): E11.69 - Type 2 diabetes mellitus with other specified complication (2) CAD (coronary artery disease) Associated angina: with unspecified angina Coronary Disease-Associated Artery/Lesion type: [place] artery [place] vs. transplanted heart: [place] heart Qualified Code(s): I25.119 - Atherosclerotic heart disease of [place] coronary artery with unspecified angina pectoris (3) Hypertension Hypertension type: essential hypertension Qualified Code(s): I10 - Essential (primary) hypertension
--- NOTE | 2020-05-26 11:48 | CT Scan Report ---
CT SCAN OF THE ABDOMEN AND PELVIS WITHOUT CONTRAST CLINICAL HISTORY: vomiting, epigastric pain COMPARISON STUDY: 05/14/2020 TECHNIQUE: CT scan of the abdomen and pelvis was performed from the lung bases to the proximal femurs . Images are reviewed in the axial, sagittal, and coronal planes. IV contrast was not administered fo r this examination. A dose lowering technique was utilized adhering to the principles of ALARA. CT DOSE: 800.50 mGy.cm FINDINGS: Lower chest: There are coronary artery calcifications. There are small bilateral pleural effusions ri ght greater than left. There are basilar airspace opacities, likely atelectatic. There are subtle ginger undglass opacities within the right middle lobe and lower lobe possibly representing edema. There is mild interlobular septal thickening. Liver: The unenhanced liver is normal in size, contour, and attenuation. There is no intrahepatic page iary ductal dilatation. Gallbladder: Surgically absent Spleen: Normal in size and attenuation. Pancreas: Unremarkable. Adrenal glands: Unremarkable. Kidneys: There is no hydronephrosis. There is a 3 mm calculus in the right renal pelvis. There is a 2 mm upper pole right renal calculus. There is a 2 mm lower pole right renal calculus. There is an ind welling right-sided nephroureteral stent. Bowel: There are no transition zones indicate bowel obstruction. By history the appendix is surgicall y absent. There is colonic diverticulosis. There is no evidence of acute diverticulitis. Peritoneum: There is no intraperitoneal free air or abdominal ascites. There is a tiny fat-containing ventral hernia Vasculature: The abdominal aorta is normal in course and caliber. Adenopathy: None. Pelvic viscera: There is a joint Gonzalez catheter. There is air within the bladder which is felt to be iatrogenic. Uterus appears surgically absent. Skeletal structures: No destructive osseous lesions are seen. IMPRESSION: 1. Bilateral nephrolithiasis. 2. Interval placement of a double pigtail right-sided nephroureteral stent 3. Tiny fat-containing ventral hernia 4. No evidence of bowel obstruction. No evidence of free air 5. Diverticulosis. No evidence of acute diverticulitis 6. Interval development of small bilateral pleural effusions. Congestive failure/fluid overload suspe cted. ACT 112: Negative or not required by law. Electronically signed by: Adam Khoury M.D. 05/26/2020 11:47 AM
[2020-05-26] MEDS ORDERED: SENNA 8.6 MG TAB PO PRN (12:39)
[2020-05-26] MEDS ORDERED: NITROGLYCERIN SL 0.4 MG/TAB TAB SL PRN ×2 (12:39→13:12)
[2020-05-26] MEDS ORDERED: ENOXAPARIN 1 MG/KG SQ SCH (12:39)
[2020-05-26] MEDS ORDERED: fentaNYL 25 MCG/HR TDSY TD SCH (13:00)
[2020-05-26] MEDS ORDERED: GLUCOSE 10 TABS/TUBE PO PRN (13:12)
[2020-05-26] MEDS ORDERED: GLUCOSE 40% GEL 15 GM TUBE PO PRN (13:12)
[2020-05-26] MEDS ORDERED: GLUCAGON FOR INJ 1 MG VIAL SQ PRN (13:12)
[2020-05-26] MEDS ORDERED: DEXTROSE 50% 50 ML SYRINGE IV PRN (13:12)
[2020-05-26] MEDS ORDERED: ACETAMINOPHEN 325 MG TAB PO PRN (13:12)
[2020-05-26] MEDS ORDERED: CARBOHYDRATES FOR HYPOGLYCEMIA PO PRN (13:12)
[2020-05-26] MEDS ORDERED: MAGNESIUM HYDROXIDE SUSP 30 ML UDC PO PRN (13:12)
--- NOTE | 2020-05-26 13:22 | Cardiology Consultation ---
Date of Consultation May 26, 2020 Assessment & Plan (1) Syncope: Patient admitted with symptoms of chest pain and syncope as well as near syncope. Underlying known coronary artery disease and recent non-ST segment elevation myocardial infarction in setting of acute sepsis. Cardiac catheterization discussed last admission but patient managed conservatively given multiple risk factors including persistent bleeding with hematuria indwelling ureteral stent and acute on chronic renal insufficiency at that time. Symptoms remain concerning. No acute ST segment changes on EKG troponin mildly elevated but will be trended during this admission. Currently on subcutaneous Lovenox for anticoagulation. Mild congestive heart failure on chest x-ray with response to single dose IV diuretic Paroxysmal atrial fibrillation noted during last hospitalization and patient discharged in atrial fibrillation now returns in sinus rhythm on combination of amiodarone and metoprolol Plan: Maintain telemetry. Bradycardia not excluded as possible cause of complaints but high suspicion for underlying ischemic heart disease as cause We will tentatively schedule for diagnostic cardiac catheterization in a.m. depending on clinical course. Lovenox to be held in a.m., will reduce metoprolol to 25 mg twice per day we will continue current dose of amiodarone. Patient remains on antibiotic therapies after recent urosepsis and has indwelling ureteral stent which will ultimately need removal complicating management issues (2) Unstable angina: (3) Chronic diastolic heart failure: (4) Anemia: (5) Paroxysmal atrial fibrillation: (6) Interstitial lung disease: History of Present Illness Reason for Consultation: Chest pain, syncope Requesting Physician: Dr. Scruggs Attending Physician: Ginny Skaggs MD History of Present Illness Patient is a very complex 80-year-old female seen on readmission after recent hospitalization. Her underlying medical issues include 1. ASCVD. Non ST segment elevation RI in July 2009 and May 2020. 2. Cardiac catheterization, staged 2009 receiving a total of 3 drug eluting stents including 2 stents to the circumflex obtuse marginal territory in 1 drug eluting stent to the right coronary artery. 2. Chronic diastolic heart failure compensated with preserved ejection fraction 3. Chronic hypoxemic respiratory failure, on supplemental oxygen, 2 liters/minute via nasal cannula 28/03 4. Chronic interstitial lung disease 5. Moderate asymptomatic carotid artery stenosis 6. Hypertension 7. Dyslipidemia 8. Type 2 diabetes mellitus 9. History of multiple recurrent DVT's (RLE), on anticoagulation chronically with warfarin currently on subcutaneous Lovenox 10. Multiple sclerosis 11. History of seizure disorder. 12. Hypothyroidism 13. Obstructive uropathy with sepsis 05/13/2020 managed with ureteral stent 14. Paroxysmal atrial fibrillation complicating admission in May discharged on amiodarone and metoprolol therapy Patient presents now once again noting clinical decline. Has been experiencing symptoms of near syncope and syncope x2 days. Last evening after ambulation to bathroom had chest pain followed by nausea, nitroglycerin and subsequent syncopal event. Notes marked gait instability since hospital discharge. Difficulty walking independently. No fevers chills or unexplained infections. Patient blind but no noted bleeding issues. Appetite and weight stable. Breathing was slightly more difficult since hospital discharge, wearing oxygen faithfully. Allergies Allergy/AdvReac Type Severity Reaction Status Date / Time allopurinol Allergy Unknown COUGH Verified 05/26/20 08:21 blue dye Allergy Unknown BRILLIANT Verified 05/26/20 08:21 BLUE FCF dimethyl fumarate Allergy Unknown UNKNOWN Verified 05/26/20 08:21 Home Medications Home Medications Medication Instructions Recorded Confirmed Type aspirin 81 mg tablet,delayed 81 mg PO DAILY tab 05/25/19 05/26/20 History release biotin 5 mg tablet 5 tab PO DAILY tab 05/25/19 05/26/20 History fentanyl 25 mcg/hr transdermal 1 patch TD .COMPLEX ea 05/25/19 05/26/20 History patch pioglitazone 15 mg tablet 15 mg PO DAILY tab 05/25/19 05/26/20 History warfarin 1 mg tablet 0 mg PO DAILY tab 05/25/19 05/26/20 History buspirone 10 mg tablet 10 mg PO BID PRN 09/03/19 05/26/20 History carbamazepine 200 mg tablet 200 mg PO DAILY tab 09/03/19 05/26/20 History dulaglutide 1.5 mg/0.5 mL 0 mg SQ WEEKLY ml 09/03/19 05/26/20 History subcutaneous pen injector gabapentin 800 mg tablet 800 mg PO TID #270 tab 09/03/19 05/26/20 Rx glipizide 10 mg tablet 10 mg PO BID 09/03/19 05/26/20 History levothyroxine 100 mcg tablet 100 mcg PO DAILY 09/03/19 05/26/20 History lorazepam 0.5 mg tablet 0.5 mg PO DAILY PRN 09/03/19 05/26/20 History metformin 500 mg tablet 500 mg PO BID 09/03/19 05/26/20 History nitroglycerin 0.4 mg sublingual 0.4 mg SL Q5M PRN 09/03/19 05/26/20 History tablet acetaminophen [Tylenol] 650 mg PO Q6 PRN 09/19/19 05/26/20 History ergocalciferol (vitamin D2) 1,250 mcg PO WK 09/19/19 05/26/20 History [Vitamin D2] folic acid 0.4 mg PO DAILY 09/19/19 05/26/20 History promethazine 12.5 mg PO DAILY 09/19/19 05/26/20 History senna 8.6 mg PO BID PRN 09/19/19 05/26/20 History Linzess 0 mcg PO DAILY 05/13/20 05/26/20 History furosemide 40 mg PO DAILY PRN 05/13/20 05/26/20 History isosorbide mononitrate 120 mg PO DAILY 05/13/20 05/26/20 History ondansetron HCl 4 mg PO DAILY 05/13/20 05/26/20 History rosuvastatin 5 mg PO DAILY 05/13/20 05/26/20 History amiodarone 200 mg PO BID #60 tab 05/21/20 05/26/20 Rx cefdinir 300 mg PO DAILY #14 cap 05/21/20 05/26/20 Rx enoxaparin [Lovenox] 80 mg SUBCUT DAILY #8 ml 05/21/20 05/26/20 Rx metoprolol succinate 50 mg PO BID #60 tab 05/21/20 05/26/20 Rx nitrofurantoin macrocrystal 50 mg PO HS #30 cap 05/22/20 05/26/20 Rx [Macrodantin] Patient History Medical History CAD (coronary artery disease) July 2009 -NSTEMI 2009-2 KYLER to circumflex obtuse marginal, 1 KYLER to RCA Carotid artery stenosis CKD (chronic kidney disease), stage III DM type 2 (diabetes mellitus, type 2) Dyslipidemia History of DVT (deep vein thrombosis) Hypertension Hypothyroidism Interstitial lung disease Legally blind Multiple sclerosis Seizure disorder Surgical History History of hysterectomy History of tonsillectomy Hx of cholecystectomy Family History Mother Heart disease Social History Smoking Status: Never smoker Hx Alcohol Use: No Hx Substance Use: No Preferred Language: Sami Communication Ability: Effective Communication Ability Comment: legally blind 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 Beliefs That Will Affect Care: None Current Living Situation: Spouse and Family Other Information That Helps Us Care for You: No Feels Safe at Home: Yes Safety Concerns: Feels Safe At This Time Assistive Devices: Oxygen - Continuous Review of Systems Review of Systems: All systems reviewed & are unremarkable except as noted in HPI & below Physical Exam Constitutional: + obese; no acute distress Eyes: Visually impaired ENMT: external ear and nose normal, oropharynx normal Neck: + thick neck Respiratory: Fine crackles bilaterally with diminished breath sounds Cardiovascular: Rate/Rhythm: regular rate and regular rhythm Heart Sounds: normal S1 and normal S2 Gastrointestinal (Abdomen): Percussion/Palpation: abdomen soft; no hepatosplenomegaly Musculoskeletal: no cyanosis or clubbing, extremities motor strength 5/5 Neurologic: No focal deficits grossly with chronic visual impairment Psychiatric: A+Ox3, euthymic affect Results & Data ([facility]) Vital Signs (Past 12 Hours) Vital Signs Temp Pulse Pulse Resp BP BP Pulse Ox 05/26/20 12:50 37 C 62 20 157/77 H 99 05/26/20 12:37 61 05/26/20 11:56 61 22 158/68 H 99 05/26/20 11:42 62 24 100 05/26/20 11:00 60 21 147/73 H 99 05/26/20 09:25 60 18 153/67 H 98 05/26/20 07:44 37.2 C 60 18 119/76 87 L 05/26/20 07:39 99 05/26/20 07:25 87 L Laboratory Results Laboratory Results - last 24 hr 05/26/20 05/26/20 05/26/20 08:00 08:00 08:00 WBC 11.20 H RBC 2.62 L Hgb 8.3 L Hct 26.2 L MCV 100.0 MCH 31.7 MCHC 31.7 L RDW Std Deviation 50.6 H RDW Coeff of Gillian 14.1 Plt Count 309 MPV 10.0 Immature Gran % (Auto) 0.4 Neut % (Auto) 81.0 Lymph % (Auto) 7.5 [place] % (Auto) 10.4 Eos % (Auto) 0.5 Baso % (Auto) 0.2 Neut # (Auto) 9.08 H Lymph # (Auto) 0.84 L [place] # (Auto) 1.16 H Eos # (Auto) 0.06 Baso # (Auto) 0.02 Immature Gran # (Auto) 0.04 H PT 14.2 H INR 1.4 H APTT 41.0 H PTT Ratio 1.5 Sodium 135 L Potassium 5.4 H Chloride 98 Carbon Dioxide 25 Anion Gap 12.0 H BUN 21 H Creatinine 1.41 H Est Cr Clr Drug Dosing 32.7 Est GFR ( Amer) 41.0 Est GFR (Non-Af Amer) 35.3 BUN/Creatinine Ratio 14.8 Glucose 130 H POC Glucose Calcium 9.7 Total Bilirubin 0.5 AST 17 ALT 23 Alkaline Phosphatase 47 Total Creatine Kinase 46 CK-MB (CK-2) < 1.0 CK/CKMB % Calc TNP Troponin I 0.028 NT-Pro-B Natriuret Pep 7491 H Total Protein 7.0 Albumin 2.7 L Globulin 4.3 H Albumin/Globulin Ratio 0.6 L Lipase 151 Urine Color Urine Appearance Urine pH Ur Specific [place] Urine Protein Urine Glucose (UA) Urine Ketones Urine Blood Urine Nitrite Urine Bilirubin Urine Urobilinogen Ur Leukocyte Esterase Urine WBC (Auto) Urine RBC (Auto) U Hyaline Cast (Auto) U Epithel Cells (Auto) Urine Bacteria (Auto) Ur Renal Epithelial Cell Blood Type Antibody Screen 05/26/20 05/26/20 05/26/20 08:20 09:50 13:22 WBC RBC Hgb Hct MCV MCH MCHC RDW Std Deviation RDW Coeff of Gillian Plt Count MPV Immature Gran % (Auto) Neut % (Auto) Lymph % (Auto) [place] % (Auto) Eos % (Auto) Baso % (Auto) Neut # (Auto) Lymph # (Auto) [place] # (Auto) Eos # (Auto) Baso # (Auto) Immature Gran # (Auto) PT INR APTT PTT Ratio Sodium Potassium Chloride Carbon Dioxide Anion Gap BUN Creatinine Est Cr Clr Drug Dosing Est GFR ( Amer) Est GFR (Non-Af Amer) BUN/Creatinine Ratio Glucose POC Glucose 123 H Calcium Total Bilirubin AST ALT Alkaline Phosphatase Total Creatine Kinase CK-MB (CK-2) CK/CKMB % Calc Troponin I NT-Pro-B Natriuret Pep Total Protein Albumin Globulin Albumin/Globulin Ratio Lipase Urine Color Yellow Urine Appearance Cloudy A Urine pH 5.5 Ur Specific [place] 1.017 Urine Protein 2+ H Urine Glucose (UA) Negative Urine Ketones Negative Urine Blood 2+ H Urine Nitrite Negative Urine Bilirubin Negative Urine Urobilinogen Negative Ur Leukocyte Esterase 1+ H Urine WBC (Auto) >30 H Urine RBC (Auto) 5-10 H U Hyaline Cast (Auto) 1-5 U Epithel Cells (Auto) >30 H Urine Bacteria (Auto) 1+ H Ur Renal Epithelial Cell Not Reportable Blood Type A Positive Antibody Screen NEGATIVE (1) Syncope Syncope type: unspecified Qualified Code(s): R55 - Syncope and collapse
[2020-05-26] MEDS: ASPIRIN 81 MG ECTAB PO SCH (13:39)
[2020-05-26] MEDS: ENOXAPARIN 100 MG/1ML SYR SQ SCH ×2 (13:40→21:15)
[2020-05-26] MEDS: GABAPENTIN 800 MG TAB PO SCH ×2 (13:41→20:37)
[2020-05-26] MEDS: carBAMazepine 200 MG TABLET PO SCH (13:41)
[2020-05-26 14:06] LABS: Ferritin 165.9 ng/ml (8-388)
--- NOTE | 2020-05-26 14:47 | Billing Data ---
Date of Service May 26, 2020 Coding Level of Care Code 06420 OBS Care - Level 3
[2020-05-26] MEDS: CHECK FENTANYL PATCH PLACEMENT SCH ×2 (16:21→23:36)
[2020-05-26] MEDS: INSULIN ASPART 100 UNITS/ML 3 ML PEN SC SCH ×2 (17:01→20:41)
[2020-05-26 17:34] LABS: BUN Creatinine Ratio 13.1 (10-20); Calcium 9.9 mg/dl (8.5-10.1); Creatinine Clr Calc Pharmacy 27.9 ml/min; Est GFR (African American) 33.9; Est GFR (Non-African American) 29.2; Potassium 4.9 mmol/L (3.5-5.1)
[2020-05-26 17:38] LABS: Troponin I 0.023 ng/ml (0-0.045)
[2020-05-26 17:49] LABS: Vitamin B12 746 pg/ml (211-911)
[2020-05-26 17:50] LABS: Folate (Folic Acid) > 24.00 ng/ml (>5.38)
--- NOTE | 2020-05-26 19:59 | Urology Consultation ---
Date of Consultation May 26, 2020 Assessment & Plan (1) Right ureteral stone: Patient currently has stent in place which was placed during acute illness. Patient is currently dealing with exacerbation of underlying heart issues as well as acute illness and deconditioned state from severe illness a few weeks ago. Patient has not fully recovered. Plan is to have heart catheterization tomorrow per patient, nursing, and records. Patient may likely receive blood thinners afterwards. With this in mind as well as a stone will likely need to monitor closely and control any issues with hematuria at this point need for blood thinners will likely outweigh risks of hematuria. Patient is otherwise resting comfortably. She is tolerating catheter without major problems. Is tolerating stent without major problems. Patient will likely need intervention of stone at some point however due to her current other severe concerning medical issues will likely hold until patient is improved and stabilized. May need to maintain stent for period of time until able to safely proceed with intervention. Patient has acute on chronic issues related to kidney disease. We will need to monitor this as well. Maintain catheter for full drainage. Patient is complicated medical and surgical histories reviewed and summarized above. All imaging has been reviewed by myself. We will continue to monitor with plans to possibly reassess stent if patient has major ongoing issues. Will be available and plan to continue and agree with plans for supportive care. History of Present Illness Attending Physician: Ginny Skaggs MD History of Present Illness Consult for urinary issues with hematuria with catheter and stent in place. Patient had a severe obstructing stone with acute illness and was discharged home with plans for monitoring and eventual intervention. Patient had developed considerable acute issues of her chronic significant cardiac history and plans are to have a heart catheterization tomorrow per patient and records as well as nursing. Patient is currently tolerating catheter. Has not had considerable issues. Has been tolerating stent. Has been having nausea with some abdominal cramping and discomfort.. Patient has mild to moderate discomfort in pelvis and groin going to back and side in waves. Is dealing with acute illness related to her cardiac issues. Has been deconditioned from this. Has decreased mobility significantly with acute issues. Has not fully recovered from acute illness with recent sepsis and illness. Has had some minor urinary issues in the past. No severe nausea or vomiting. Currently no fevers. Is currently tolerating stent. Has not had intervention for stone Allergies Allergy/AdvReac Type Severity Reaction Status Date / Time allopurinol Allergy Unknown COUGH Verified 05/26/20 08:21 blue dye Allergy Unknown BRILLIANT Verified 05/26/20 08:21 BLUE FCF dimethyl fumarate Allergy Unknown UNKNOWN Verified 05/26/20 08:21 Home Medications Home Medications Medication Instructions Recorded Confirmed Type aspirin 81 mg tablet,delayed 81 mg PO DAILY tab 05/25/19 05/26/20 History release biotin 5 mg tablet 5 tab PO DAILY tab 05/25/19 05/26/20 History fentanyl 25 mcg/hr transdermal 1 patch TD .COMPLEX ea 05/25/19 05/26/20 History patch pioglitazone 15 mg tablet 15 mg PO DAILY tab 05/25/19 05/26/20 History warfarin 1 mg tablet 0 mg PO DAILY tab 05/25/19 05/26/20 History buspirone 10 mg tablet 10 mg PO BID PRN 09/03/19 05/26/20 History carbamazepine 200 mg tablet 200 mg PO DAILY tab 09/03/19 05/26/20 History dulaglutide 1.5 mg/0.5 mL 0 mg SQ WEEKLY ml 09/03/19 05/26/20 History subcutaneous pen injector gabapentin 800 mg tablet 800 mg PO TID #270 tab 09/03/19 05/26/20 Rx glipizide 10 mg tablet 10 mg PO BID 09/03/19 05/26/20 History levothyroxine 100 mcg tablet 100 mcg PO DAILY 09/03/19 05/26/20 History lorazepam 0.5 mg tablet 0.5 mg PO DAILY PRN 09/03/19 05/26/20 History metformin 500 mg tablet 500 mg PO BID 09/03/19 05/26/20 History nitroglycerin 0.4 mg sublingual 0.4 mg SL Q5M PRN 09/03/19 05/26/20 History tablet acetaminophen [Tylenol] 650 mg PO Q6 PRN 09/19/19 05/26/20 History ergocalciferol (vitamin D2) 1,250 mcg PO WK 09/19/19 05/26/20 History [Vitamin D2] folic acid 0.4 mg PO DAILY 09/19/19 05/26/20 History promethazine 12.5 mg PO DAILY 09/19/19 05/26/20 History senna 8.6 mg PO BID PRN 09/19/19 05/26/20 History Linzess 0 mcg PO DAILY 05/13/20 05/26/20 History furosemide 40 mg PO DAILY PRN 05/13/20 05/26/20 History isosorbide mononitrate 120 mg PO DAILY 05/13/20 05/26/20 History ondansetron HCl 4 mg PO DAILY 05/13/20 05/26/20 History rosuvastatin 5 mg PO DAILY 05/13/20 05/26/20 History amiodarone 200 mg PO BID #60 tab 05/21/20 05/26/20 Rx cefdinir 300 mg PO DAILY #14 cap 05/21/20 05/26/20 Rx enoxaparin [Lovenox] 80 mg SUBCUT DAILY #8 ml 05/21/20 05/26/20 Rx metoprolol succinate 50 mg PO BID #60 tab 05/21/20 05/26/20 Rx nitrofurantoin macrocrystal 50 mg PO HS #30 cap 05/22/20 05/26/20 Rx [Macrodantin] Patient History Medical History CAD (coronary artery disease) July 2009 -NSTEMI 2009-2 KYLER to circumflex obtuse marginal, 1 KYLER to RCA Carotid artery stenosis CKD (chronic kidney disease), stage III DM type 2 (diabetes mellitus, type 2) Dyslipidemia History of DVT (deep vein thrombosis) Hypertension Hypothyroidism Interstitial lung disease Legally blind Multiple sclerosis Seizure disorder Surgical History History of hysterectomy History of tonsillectomy Hx of cholecystectomy Family History Mother Heart disease Social History Smoking Status: Never smoker Hx Alcohol Use: No Hx Substance Use: No Preferred Language: Spanish Communication Ability: Effective Communication Ability Comment: legally blind 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 Advanced age. Chronic Medical issues. Severely deconditioned. Poor historian with recent severe acute illness HEENT: Normocephalic. Inspection normal. Cranial Nerves 2-12 Grossly intact with some hearing issues. Normal inspection of face. Normal inspection of neck. Psychologic: Normal affect. Baseline issues with memory. Respiratory: Nonlabored. No use of accessory muscles. No tachypnea or dyspnea. Cardiovascular: No tachycardia Skin: [place] and Dry. No rashes or visible lesions. Extremities/Lymphatics: Minor Mobility issues. Slow Gait. Abdomen: Soft Non-distended. No rebound or guarding. : Gonzalez in place draining clear yellow urine Results & Data ([facility]) Vital Signs (Past 12 Hours) Vital Signs Temp Pulse Pulse Resp BP BP BP 05/26/20 16:02 36.9 C 66 17 151/74 H 05/26/20 15:47 64 05/26/20 12:50 37 C 62 20 157/77 H 05/26/20 12:37 61 05/26/20 11:56 61 22 158/68 H 05/26/20 11:42 62 24 05/26/20 11:00 60 21 147/73 H 05/26/20 09:25 60 18 153/67 H Pulse Ox 05/26/20 16:02 97 05/26/20 15:47 05/26/20 12:50 99 05/26/20 12:37 05/26/20 11:56 99 05/26/20 11:42 100 05/26/20 11:00 99 05/26/20 09:25 98 PG Care Time/CCT Total # of Minutes Spent Total Time Spent with Patient: Total time spent is greater than 50% in coordination of care (as documented) at patient's floor/unit and/or counseling patient: Coding Level of Care Code 43009 Inpt Consult Level 5 Diagnoses Right ureteral stone N20.1
[2020-05-26] MEDS: AMIODARONE 200 MG TAB PO SCH (20:36)
[2020-05-26] MEDS: METOPROLOL SUCC 25MG EXT REL TAB PO SCH (20:37)
[2020-05-26] MEDS ORDERED: METOPROLOL SUCC 50MG EXT REL TAB PO SCH (21:00)
[2020-05-27] MEDS: LEVOTHYROXINE SODIUM 100 MCG TABLET PO SCH (05:37)
[2020-05-27 05:43] LABS: Basophils # (auto) 0.02 K/uL (0-0.2); Basophils % (auto) 0.2 %; Eosinophils # (auto) 0.16 K/uL (0-0.5); Eosinophils % (auto) 1.8 %; Hematocrit (blood only) 25.8 % (37-47); Hemoglobin 8.4 g/dL (12.0-16.0); Immature Granulocytes # (auto) 0.01 K/uL (0.00-0.02); Immature Granulocytes % (auto) 0.1 %; Lymphocytes # (auto) 0.52 K/uL (1.2-3.4); Lymphocytes % (auto) 5.8 %; Mean Corpuscular Hemoglobin 32.2 pg (25-34); Mean Corpuscular Hgb Conc 32.6 g/dL (32-36); Mean Corpuscular Volume 98.9 fL (80-100); Mean Platelet Volume 9.8 fL (7.4-10.4); Monocytes # (auto) 1.21 K/uL (0.11-0.59); Monocytes % (auto) 13.4 %; Neutrophils % (auto) 78.7 %; Platelet Count 281 K/uL (130-400); RDW Coefficient of Variation 13.9 % (11.5-14.5); RDW Standard Deviation 49.8 fL (36.4-46.3); Red Blood Count 2.61 M/uL (4.2-5.4); White Blood Count 9.02 K/uL (4.8-10.8)
[2020-05-27 05:51] LABS: INR 1.6 (0.9-1.1); Prothrombin Time 16.2 Seconds (9.0-12.0)
[2020-05-27 06:20] LABS: Albumin Level 2.6 gm/dl (3.4-5.0); BUN Creatinine Ratio 15.2 (10-20); Calcium 9.1 mg/dl (8.5-10.1); Creatinine Clr Calc Pharmacy 33.9 ml/min; Est GFR (African American) 42.8; Est GFR (Non-African American) 36.9; Potassium 4.9 mmol/L (3.5-5.1)
[2020-05-27 06:23] LABS: Albumin Globulin Ratio 0.6 (0.9-2); Bilirubin,Total 0.5 mg/dl (0.2-1); Globulin 4.3 gm/dl (2.5-4.0); Total Protein 6.9 gm/dl (6.4-8.2)
[2020-05-27] MEDS: CHECK FENTANYL PATCH PLACEMENT SCH ×3 (07:36→23:52)
[2020-05-27] MEDS: ROSUVASTATIN CALCIUM 5 MG TAB PO SCH (07:37)
[2020-05-27] MEDS: PROMETHAZINE HCL 25 MG TAB PO SCH (07:37)
[2020-05-27] MEDS: CEFDINIR 300 MG CAP PO SCH (07:37)
[2020-05-27] MEDS: carBAMazepine 200 MG TABLET PO SCH (07:38)
[2020-05-27] MEDS: ISOSORBIDE MONO EXTENDED REL 60 MG TABCR PO SCH (07:38)
[2020-05-27] MEDS: ASPIRIN 81 MG ECTAB PO SCH (07:39)
[2020-05-27] MEDS: METOPROLOL SUCC 25MG EXT REL TAB PO SCH ×2 (07:40→20:43)
[2020-05-27] MEDS: FOLIC ACID 400 MCG TAB PO SCH (07:40)
[2020-05-27] MEDS: GABAPENTIN 800 MG TAB PO SCH ×3 (07:40→20:44)
[2020-05-27] MEDS: AMIODARONE 200 MG TAB PO SCH ×2 (07:40→20:43)
[2020-05-27] MEDS: ONDANSETRON 4 MG OD TAB PO SCH (07:41)
[2020-05-27] MEDS: INSULIN ASPART 100 UNITS/ML 3 ML PEN SC SCH ×4 (07:51→20:37)
[2020-05-27] MEDS ORDERED: FUROSEMIDE 40 MG in SYRINGE 0 ML IV SCH (09:00)
[2020-05-27] MEDS ORDERED: BIOTIN PO SCH (09:00)
[2020-05-27] MEDS ORDERED: NiCARDipine HCL INJ 2.5 MG/ML 10 ML AMP ONE (10:03)
[2020-05-27] MEDS ORDERED: MIDAZOLAM HCL 1 MG/ML 2ML VIAL ONE ×2 (10:03→12:07)
[2020-05-27] MEDS ORDERED: HEPARIN (PORCINE) 1000 UNIT/ML 10 ML (CATH LAB USE ONLY) ONE (10:03)
[2020-05-27] MEDS ORDERED: fentaNYL citrate 100 MCG/2 ML VIAL ONE (10:03)
[2020-05-27] MEDS ORDERED: NITROGLYCERIN/D5W 100MCG/ML 20ML SYR ONE (10:04)
--- NOTE | 2020-05-27 10:29 | Cardiology Progress Note ---
Date of Service May 27, 2020 Assessment & Plan (1) Syncope: Patient admitted with symptoms of chest pain and syncope as well as near syncope. Underlying known coronary artery disease and recent non-ST segment elevation myocardial infarction in setting of acute sepsis. Cardiac catheterization discussed last admission but patient managed conservatively given multiple risk factors including persistent bleeding with hematuria indwelling ureteral stent and acute on chronic renal insufficiency at that time. Symptoms remain concerning. No acute ST segment changes on EKG troponin mildly elevated but will be trended during this admission. Currently on subcutaneous Lovenox for anticoagulation. Mild congestive heart failure on chest x-ray with response to single dose IV diuretic Paroxysmal atrial fibrillation noted during last hospitalization and patient discharged in atrial fibrillation now returns in sinus rhythm on combination of amiodarone and metoprolol Plan: Discussed above findings in detail with patient and daughter chest pain with syncope concerning with lateral T wave inversion on EKGs. Recent non-ST segment elevation myocardial infarction in the setting of acute sepsis. Symptoms now recurrent and reflect failed conservative medical management. Discussed proceeding with diagnostic cardiac catheterization in detail noting increased risk given underlying medical morbidities. Management plans and also will need to include treatment of underlying nephrolithiasis and doing indwelling ureteral stent as sequela of recent admission. Proceed with diagnostic cardiac catheterization today and plan any coronary intervention to be done with bare-metal stents Patient agreeable Discussed with Dr. Chris Hernandez,will perform procedure (2) Unstable angina: (3) Chronic diastolic heart failure: (4) Anemia: (5) Paroxysmal atrial fibrillation: Remains in sinus rhythm on combination of metoprolol and amiodarone. No tachycardia or bradycardia arrhythmias on telemetry. Metoprolol dosing reduced on admission, QT corrected within normal limits (6) Interstitial lung disease: Admission and Anticipated Discharge Date Admission Date: May 26, 2020 Subjective Patient seen and examined, chart, medications, telemetry reviewed. Anxious but no symptoms overnight no chest pains no syncope no tachyp alpitations. Telemetry reveals no arrhythmias No fevers chills unexplained infections. Troponins detectable but flat EKG sinus rhythm with first-degree AV block with lateral T wave inversion Physical Exam Constitutional: + obese; no acute distress ENMT: external ear and nose normal, oropharynx normal Neck: + thick neck Cardiovascular: Rate/Rhythm: regular rate and regular rhythm Heart Sounds: normal S1 and normal S2 Gastrointestinal (Abdomen): Percussion/Palpation: abdomen soft; no hepatosplenomegaly Musculoskeletal: no cyanosis or clubbing, extremities motor strength 5/5 Psychiatric: A+Ox3, euthymic affect Results & Data ([facility]) Vital Signs (Past 12 Hours) Vital Signs Temp Pulse Resp BP Pulse Ox 05/27/20 07:35 36.9 C 67 20 150/72 H 96 05/27/20 03:37 36.9 C 68 20 162/79 H 95 05/27/20 00:35 36.6 C 69 18 159/94 H 98 Laboratory Results Laboratory Results - last 24 hr 05/26/20 05/26/20 05/26/20 09:50 13:15 13:15 WBC RBC Hgb Hct MCV MCH MCHC RDW Std Deviation RDW Coeff of Gillian Plt Count MPV Immature Gran % (Auto) Neut % (Auto) Lymph % (Auto) Gibson % (Auto) Eos % (Auto) Baso % (Auto) Neut # (Auto) Lymph # (Auto) Gibson # (Auto) Eos # (Auto) Baso # (Auto) Immature Gran # (Auto) PT INR Sodium Potassium Chloride Carbon Dioxide Anion Gap BUN Creatinine Est Cr Clr Drug Dosing Est GFR ( Amer) Est GFR (Non-Af Amer) BUN/Creatinine Ratio Glucose POC Glucose Calcium Iron 27 L TIBC 289 Transferrin 227 Ferritin 165.9 Total Bilirubin AST ALT Alkaline Phosphatase Troponin I Total Protein Albumin Globulin Albumin/Globulin Ratio Triglycerides Cholesterol LDL Cholesterol, Calc VLDL Cholesterol, Calc HDL Cholesterol Cholesterol/HDL Ratio Vitamin B12 Cancelled Folate Cancelled Blood Type A Positive Antibody Screen NEGATIVE 05/26/20 05/26/20 05/26/20 13:22 16:16 16:52 WBC RBC Hgb Hct MCV MCH MCHC RDW Std Deviation RDW Coeff of Gillian Plt Count MPV Immature Gran % (Auto) Neut % (Auto) Lymph % (Auto) Gibson % (Auto) Eos % (Auto) Baso % (Auto) Neut # (Auto) Lymph # (Auto) Gibson # (Auto) Eos # (Auto) Baso # (Auto) Immature Gran # (Auto) PT INR Sodium 136 Potassium 4.9 Chloride 96 L Carbon Dioxide 32 Anion Gap 8.0 BUN 22 H Creatinine 1.65 H Est Cr Clr Drug Dosing 27.9 Est GFR ( Amer) 33.9 Est GFR (Non-Af Amer) 29.2 BUN/Creatinine Ratio 13.1 Glucose 119 H POC Glucose 123 H 147 H Calcium 9.9 Iron TIBC Transferrin Ferritin Total Bilirubin AST ALT Alkaline Phosphatase Troponin I 0.023 Total Protein Albumin Globulin Albumin/Globulin Ratio Triglycerides Cholesterol LDL Cholesterol, Calc VLDL Cholesterol, Calc HDL Cholesterol Cholesterol/HDL Ratio Vitamin B12 Folate Blood Type Antibody Screen 05/26/20 05/26/20 05/26/20 16:52 20:24 23:18 WBC RBC Hgb Hct MCV MCH MCHC RDW Std Deviation RDW Coeff of Gillian Plt Count MPV Immature Gran % (Auto) Neut % (Auto) Lymph % (Auto) Gibson % (Auto) Eos % (Auto) Baso % (Auto) Neut # (Auto) Lymph # (Auto) Gibson # (Auto) Eos # (Auto) Baso # (Auto) Immature Gran # (Auto) PT INR Sodium Potassium Chloride Carbon Dioxide Anion Gap BUN Creatinine Est Cr Clr Drug Dosing Est GFR ( Amer) Est GFR (Non-Af Amer) BUN/Creatinine Ratio Glucose POC Glucose 133 H Calcium Iron TIBC Transferrin Ferritin Total Bilirubin AST ALT Alkaline Phosphatase Troponin I 0.024 Total Protein Albumin Globulin Albumin/Globulin Ratio Triglycerides Cholesterol LDL Cholesterol, Calc VLDL Cholesterol, Calc HDL Cholesterol Cholesterol/HDL Ratio Vitamin B12 746 Folate > 24.00 Blood Type Antibody Screen 05/27/20 05/27/20 05/27/20 05:32 05:32 05:32 WBC 9.02 RBC 2.61 L Hgb 8.4 L Hct 25.8 L MCV 98.9 MCH 32.2 MCHC 32.6 RDW Std Deviation 49.8 H RDW Coeff of Gillian 13.9 Plt Count 281 MPV 9.8 Immature Gran % (Auto) 0.1 Neut % (Auto) 78.7 Lymph % (Auto) 5.8 Gibson % (Auto) 13.4 Eos % (Auto) 1.8 Baso % (Auto) 0.2 Neut # (Auto) 7.10 H Lymph # (Auto) 0.52 L Gibson # (Auto) 1.21 H Eos # (Auto) 0.16 Baso # (Auto) 0.02 Immature Gran # (Auto) 0.01 PT 16.2 H INR 1.6 H Sodium 135 L Potassium 4.9 Chloride 98 Carbon Dioxide 31 Anion Gap 6.0 BUN 21 H Creatinine 1.36 H Est Cr Clr Drug Dosing 33.9 Est GFR ( Amer) 42.8 Est GFR (Non-Af Amer) 36.9 BUN/Creatinine Ratio 15.2 Glucose 139 H POC Glucose Calcium 9.1 Iron TIBC Transferrin Ferritin Total Bilirubin 0.5 AST 10 L ALT 20 Alkaline Phosphatase 47 Troponin I Total Protein 6.9 Albumin 2.6 L Globulin 4.3 H Albumin/Globulin Ratio 0.6 L Triglycerides 86 Cholesterol 130 LDL Cholesterol, Calc 41 VLDL Cholesterol, Calc 17 HDL Cholesterol 72 Cholesterol/HDL Ratio 2 Vitamin B12 Folate Blood Type Antibody Screen 05/27/20 07:26 WBC RBC Hgb Hct MCV MCH MCHC RDW Std Deviation RDW Coeff of Gillian Plt Count MPV Immature Gran % (Auto) Neut % (Auto) Lymph % (Auto) Gibson % (Auto) Eos % (Auto) Baso % (Auto) Neut # (Auto) Lymph # (Auto) Gibson # (Auto) Eos # (Auto) Baso # (Auto) Immature Gran # (Auto) PT INR Sodium Potassium Chloride Carbon Dioxide Anion Gap BUN Creatinine Est Cr Clr Drug Dosing Est GFR ( Amer) Est GFR (Non-Af Amer) BUN/Creatinine Ratio Glucose POC Glucose 149 H Calcium Iron TIBC Transferrin Ferritin Total Bilirubin AST ALT Alkaline Phosphatase Troponin I Total Protein Albumin Globulin Albumin/Globulin Ratio Triglycerides Cholesterol LDL Cholesterol, Calc VLDL Cholesterol, Calc HDL Cholesterol Cholesterol/HDL Ratio Vitamin B12 Folate Blood Type Antibody Screen ECG Additional Comments: 26-MAY-2020 15:01:17 [facility]-CCU ROUTINE RETRIEVAL Sinus rhythm with 1st degree A-V block T wave abnormality, consider anterolateral ischemia Abnormal ECG When compared with ECG of 26-MAY-2020 07:39 QT corrected 460 (1) Syncope Syncope type: unspecified Qualified Code(s): R55 - Syncope and collapse (2) Anemia Anemia type: unspecified type Qualified Code(s): D64.9 - Anemia, unspecified
--- NOTE | 2020-05-27 11:26 | Pre Anesthesia Assessment ---
Date of Service May 27, 2020 Pre Sedation Assessment Vital Signs Temp Pulse Pulse Resp BP BP BP 05/27/20 10:35 60 22 219/73 H 05/27/20 07:35 98.4 F 67 20 150/72 H 05/27/20 03:37 98.4 F 68 20 162/79 H 05/27/20 00:35 97.9 F 69 18 159/94 H 05/26/20 19:56 99.0 F 71 23 165/78 H 05/26/20 16:02 98.4 F 66 17 151/74 H 05/26/20 15:47 64 05/26/20 12:50 98.6 F 62 20 157/77 H 05/26/20 12:37 61 05/26/20 11:56 61 22 158/68 H 05/26/20 11:42 62 24 Pulse Ox 05/27/20 10:35 97 05/27/20 07:35 96 05/27/20 03:37 95 05/27/20 00:35 98 05/26/20 19:56 97 05/26/20 16:02 97 05/26/20 15:47 05/26/20 12:50 99 05/26/20 12:37 05/26/20 11:56 99 05/26/20 11:42 100 Cardiovascular RRR, no murmur, no edema Respiratory normal respiratory effort, lungs clear to auscultation Pre-Sedation Airway Assessment Smoking Status: Never smoker Hx Sleep Apnea: No Short, Thick Neck: No Oral Cavity: + WNL Mallampati Class: III ASA: ASA4 NPO Status Date of Last Intake of Fluids: 05/26/20 Date of Last Intake of Solid Food: 05/26/20 Procedure Planning Contraindications for Sedation: none Current Medications Reviewed: Yes Notes The planned sedation has been discussed with the patient. Informed Consent was obtained. I have identified the patient, determined the appropriateness of sedation and have assessed the patient immediately prior to the procedure. All medicine(s) and interventions are by my order.
[2020-05-27] MEDS ORDERED: CLOPIDOGREL BISULFATE 300 MG TAB ONE (12:49)
--- NOTE | 2020-05-27 12:49 | Urology Progress Note ---
Date of Service May 27, 2020 Assessment & Plan Admission and Anticipated Discharge Date Admission Date: May 26, 2020 Subjective Attempted to see the patient twice today, however she has been down the cardiac catheterization lab for the majority of the morning We will likely not see her until tomorrow but we will continue to follow closely Results & Data ([facility]) Vital Signs (Past 12 Hours) Vital Signs Temp Pulse Resp BP Pulse Ox 05/27/20 10:35 60 22 219/73 H 97 05/27/20 07:35 36.9 C 67 20 150/72 H 96 05/27/20 03:37 36.9 C 68 20 162/79 H 95 PG Care Time/CCT Total # of Minutes Spent Total Time Spent with Patient: Total time spent is greater than 50% in coordination of care (as documented) at patient's floor/unit and/or counseling patient: Coding Level of Care Code None
--- NOTE | 2020-05-27 13:00 | Post Anesthesia Assessment ---
Date of Service May 27, 2020 Post Sedation Assessment Vital Signs Temp Pulse Pulse Resp BP Pulse Ox 05/27/20 10:35 60 22 219/73 H 97 05/27/20 07:35 98.4 F 67 20 150/72 H 96 05/27/20 03:37 98.4 F 68 20 162/79 H 95 05/27/20 00:35 97.9 F 69 18 159/94 H 98 05/26/20 19:56 99.0 F 71 23 165/78 H 97 05/26/20 16:02 98.4 F 66 17 151/74 H 97 05/26/20 15:47 64 Recovery Score Activity: Moves 4 extremities Respiration: Deep Breath/Cough Circulation: +/-20% PreAnes Value Consciousness: Fully Awake Oxygen Saturation: O2 needed for >90% Discharge Sedation Level of Care: Fast Track Phase II Post Sedation Plan On clinical assessment, the patient appears to have tolerated the sedation without complications. Patient is recovering as anticipated. Patient will continue to be monitored by nursing and may be discharged when sedation discharge criteria are met per below protocol. Upon Completions of procedure up to 15 minutes continue every 5 minute vital signs and the P.A.R. score; then discharge to a Phase I or Fast Track to Phase II per the following guidelines: * Discharge Patient to appropriate Phase II area if PAR is 8 or greater or return to pre- procedure baseline. The post - procedure orders will be as directed. * If PAR score is less than 8 or not return to pre-procedure baseline then patient will follow Phase I monitoring till PAR is reached for Phase II. The Phase I may be done in procedure room or may call to secure a Phase I area. * If naloxone or flumazenil are used for reversal, hold in Phase I for continued monitoring from when last reversal dose was given for a minimum of 60 minutes or longer pending the nurse and/or physician discretion of patient condition before discharge to Phase II. Please call the Sedation Physician to re-evaluate and complete post-note for discharge to Phase II area. Do NOT discharge from procedure sedation or Phase 1 until post- sedation evaluation note is complete by procedure /sedation MD Sedation Discharge Instructions to be given to the patient at discharge to home.
--- NOTE | 2020-05-27 13:22 | Cardiac Catheterization ---
[facility] Data: Transportation Attendant Cardiac Status Clinical evaluation leading to the procedure CAD Presenation: Non STEMI Anginal Classification: CCS IV Heart Failure: NYHA Class: CCS III Cardiogenic Shock within 24 Hours: No Cardiac Arrest within 24 Hours: No Imaging Studies Past 6 Months: Yes Stress Studies Past 6 Months: No Diagnostic Physicians Name: Ashwin Hernandez MD Status: Elective Closure Device Percutaneous Entry Location: Ulnar Closure Device: Radial Band Recommendations: PCI without planned CABG PCI Indication: PCI for high risk Non-DILLON Lesion Segment Name: mid LAD Culprit Artery: Yes Stenosis Prior to Rx (%): 95 Chronic Total Occlusion: No IVUS: No FFR: No Pre-Procedure CHELI Flow: 3 Previously Treated Lesion: No Lesion Complexity: Non-High/Non-C Lesion Length (mm): 15 Thrombus Present: Yes Bifurcation Lesion: Yes Guidewire Across Lesion: Stenosis Post-Procedure (%): 0 Post-Procedure CHELI Flow: 3 Devices(s) Deployed: Yes Yes Intraprocedure Events Significant Disection: No Perforation: No Cardiac Cath Procedure Full Procedure Date May 27, 2020 Pre-Procedure Diagnosis Pre-Procedure Diagnosis: Non STEMI AUC Score AUC Score: 8 Post-Procedure Diagnosis Post-Procedure Diagnosis: Severe CAD, Successful PCI and Elevated Intracardiac Pressures Procedure(s) Performed Procedure(s) Performed: Coronary Angiography, Left Heart Cath, Drug Eluting Stent and Ultrasound Guided Vascular Access As[employer]er [employer] Ashwin Hernandez MD Estimated Blood Loss Estimated Blood Loss: 21 Medication(s) Medication(s): Clopidogrel, Fentanyl, Heparin, Lidocaine 1%, Nicardipine and Nitroglycerin Summary of Findings Indication: Syncope, acute coronary syndrome Recent urosepsis with obstructive kidney stone post right ureteral stent Access: 6 Fr slender left ulnar artery under ultrasound guidance Catheters: JL4, JR4, EBU 3.5 guide Findings: LM -Short, almost separate ostium, no significant disease LAD -medium caliber, diffuse proximal to mid disease with focal 95% hazy/thrombotic stenosis at takeoff of first septal/diagonal. Late mid to distal vessel without significant disease and wraps around apex. Second diagonal without significant disease Circumflex -medium caliber, 30 to 40% stenosis proximal to mid stent which is widely patent with minimal in-stent restenosis, short distal stent into OM 3 without significant disease. Jailed takeoff of small distal vessel into left PLB with 80% ostial stenosis. Medium caliber OM 2 with 60% proximal disease. RCA -dominant, medium caliber, 50% proximal stenosis, mid RCA stent widely patent, diffuse latemid to distal disease up to 90% distally. Right PDA without significant disease LVEDP -21 -- PCI -- Antithrombotic therapy: Heparin, clopidogrel Procedure: Left main cannulated with EBU 3.5 guide Director [employer] 50 wire passed across lesion into distal vessel Mid LAD lesion predilated with 2.0 compliant balloon Dilated lesion stented with 2.5 x 22 mm integrity bare-metal stent Stent post-dilated with 2.5 noncompliant balloon Residual, hazy stenosis just proximal to stent Second bare-metal stent (2.75 x 12 mm integrity) placed from proximal LAD, overlapping initial stent IC vasodilators administered for spasm Post procedure CHELI 3 flow, stents well expanded with minimal residual stenosis and no apparent cardiac complications. Arterial Closure: TR band Summary: 1. Severe multi-vessel coronary artery disease -95% acute lateproximal/mid LAD 40% proximal circumflex, patent mid and distal stents. OM2 70% proximal, 80% ostial small left PLB Patent mid RCA stent, diffuse latemid to distal disease up to 90% distally 2. Elevated intracardiac filling pressure 3. Successful PCI of proximal to mid LAD with 2 overlapping bare-metal stents (2.75 x 12, 2.5 x 22 integrity). Recommendations: To PCU for continued monitoring Loaded with clopidogrel 600 mg in Transportation Attendant Continue dual-antiplatelet therapy for at least 1 year Antiplatelet therapy can be safely interrupted after 1 month for planned ureteral stent removal Continue statin, and ASCVD risk factor modification Consult cardiac Rehab Medically manage residual RCA disease. If after urologic issues resolved and still having refractory anginal symptoms PCI with long KYLER to mid/distal RCA could be considered. Hemodynamics Rest Ao:: 153/51/104 Final Ao: 164/58/95 LV: 165/21 Recommendations Recommendations: PCI without planned CABG Specimens Specimens: None Radiation Exposure (mGy) 2662 Contrast (mls) 115 Fluids (cc crystalloids) Fluids (cc crystalloids): 133 Drains Drains: none Anesthesia moderate Procedural Complication(s) None Disposition PCU I attest to the content of the Intraoperative Record and any orders documented therein. Any exceptions are noted below. [employer] Card Cath Procedure Codes Cardiac Catheterization Procedure 1: Cardiovascular Cath Procedures: 10676 Coronaries and LHC (+/-LV) Therapeutic Services & Ancillary Proc Procedure 1: Cardiovascular Tx and Anc Procedures: 13828 Ultrasonic Guidance Vascular Access Moderate Sedation Procedure 1: Sedation/Anesthesia: 78352 Mod Sedation by the same physician;Init15 Min Child Age 5 & Up Procedure 2: Sedation/Anesthesia: 61162 Mod Sedation by the same physician; Ea [id number] Minutes Stenting Procedure 1: Cardiovascular Stent Procedures: 40887 Perc transcatheter placement of intracoronary stent(s), with ang PG Care Time/CCT Total # of Minutes Spent Total Time Spent with Patient: Total time spent is greater than 50% in coordination of care (as documented) at patient's floor/unit and/or counseling patient:
[2020-05-27] MEDS ORDERED: SODIUM CHLORIDE 0.9% 1000ML 1,000 ML IV SCH (13:30)
[2020-05-27] MEDS: POLYETHYLENE (MIRALAX) 17 GM PACK PO SCH (20:43)
--- NOTE | 2020-05-27 23:21 | Hospitalist Progress Note ---
Date of Service May 27, 2020 Assessment & Plan (1) Unstable angina: 80 yo F with PMH significant for chronic diastolic CHF, paroxysmal A. fib on Coumadin, interstitial lung disease on chronic O2 3 LNC, CKD stage III, MS, seizure disorder, CAD status post KYLER x3, hypothyroidism, DM 2, H/O recurrent DVT, recently discharged from hospital for kidney stones requiring stent placement and bacteremia secondary to UTI as well as NSTEMI. She presents with unstable angina. Unstable Angina Severe multi-vessel coronary artery disease -95% acute lateproximal/mid LAD 40% proximal circumflex, patent mid and distal stents. OM2 70% proximal, 80% ostial small left PLB Patent mid RCA stent, diffuse latemid to distal disease up to 90% distally 2. Elevated intracardiac filling pressure 3. Successful PCI of proximal to mid LAD with 2 overlapping bare-metal stents (2.75 x 12, 2.5 x 22 integrity). Recommendations: To PCU for continued monitoring Loaded with clopidogrel 600 mg in Sccm Administrator Continue dual-antiplatelet therapy for at least 1 year Antiplatelet therapy can be safely interrupted after 1 month for planned ureteral stent removal Continue statin, and ASCVD risk factor modification Consult cardiac Rehab Epigastric pain - similar to previous admission symptoms of CHF overload; resolved after diuresis -Could be related to angina -LFTs and lipase are normal - CT abd/pelv noncon: BL nephrolithiasis, no diverticulitis, CKD stage 3 - Cr 1.4, at baseline - guzman placed in ED HTN - continue BP meds as above CAD-with history of KYLER x3, here with unstable angina as above - continue aspirin, rosuvastatin, metoprolol, isosorbide DM2 - pioglitazone, metformin, glipizide from home held - insulin sliding scale, will need to calc basal req going forward - A1c 6.8 last admission Constipation - sennosides, milk of mag, miralax ordered MS+ Seizure disorder - known to Dr. Pierce - continue carbamazepine, promethazine per home regimen ILD/chronic respiratory failure with hypoxia - on home o2 requirement of 3L NC, will monitor Legally blind - noted Lumbar and cervical radiculopathy - chronically on fentanyl patch for radicular pain control Hypothyroidism -TSH was recently normal -Continue home levothyroxine History of recurrent DVT -Continue bridging Lovenox but hold Coumadin for now for cardiac catheterization -Follow PT/INR in the morning FEN/GI: diabetic diet, NPO at MN DVT ppx: therapeutic lovenox Code Status: DNR/DNI Dispo: PCU/Tele (2) Syncope: - may be orthostatic/vasovagal when she is getting up to the toilet versus arrhythmia versus cardiac ischemia -Echocardiogram without significant valvular disease on recent admission - BP more hypertensive at this time - will get orthostatic vitals -Cardiology recommended lowering the dose of Toprol-XL down to 25 mg twice daily (3) Chronic diastolic heart failure: Acute on chronic diastolic CHF - ECHO last admission 45-50%, no aortic stenosis, left ventricular hypertrophy and global left ventricular hypokinesis, - peripheral edema on exam, BNP 7.4k, previously 1.5k -Chest x-ray with chronic changes but difficult to rule out pulmonary edema - 1 dose 40 mg IV lasix in ED; will dose Lasix as needed day-to-day - daily I/Os, weights (4) Paroxysmal atrial fibrillation: -Lovenox bridging to Coumadin -Continue metoprolol XL 50 p.o. BID -Follow daily INR, currently 1.4 on admission (5) Right ureteral stone: - As above - continue cefdinir 300 mg daily as per previous UTI. - per urology notes last admission, stent to be removed in 4-6 weeks from insertion - urology consulted given hematuria and complicated course (6) Essential tremor: -Noted history of parkinsonian features, needs metoprolol for PAF for rate control in lieu of propranolol. (7) Legally blind: - Noted (8) CKD (chronic kidney disease), stage III: -Baseline creatinine 1.3-1.5, creatinine 1.41 on admission, at baseline -S/p right-sided ureteral stent placed by Dr. Salvador on 05/15/2020, anticipate stent removal in approximately 1 to 2 weeks -Follow-up with urology as outpatient (9) Multiple sclerosis: -Noted, follows with Dr. Pierce, neurology as outpatient. -PT/OT (10) Seizure disorder: (11) History of DVT (deep vein thrombosis): (12) DM type 2 (diabetes mellitus, type 2): -A1c = 6.8 during last admission -ISS with Accu-Cheks ACHS -Hold glipizide, metformin for now (13) Hypertension: -BP 153/67, continue Metoprolol -Had held HCTZ and lisinopril on discharge during last admission, did not resume (14) Interstitial lung disease: (15) CAD (coronary artery disease): -Medications as above (16) Anemia: Chronic Anemia -Slowly worsening -Hg 8.3, 9.4 on discharge 05/22 - FOBT negative in ED, no report of hematochezia/hematemesis, - Anemia labs ordered will monitor Admission and Anticipated Discharge Date Admission Date: May 26, 2020 Subjective 80 yo female states she is anxious. Currently though she is not having any chest pain, SOB at rest. She reports though that the cardiac cath was very painful. Review of Systems Review of Systems: All systems reviewed & are unremarkable except as noted in HPI & below Physical Exam Physical Exam: Constitutional: obese, in no apparent distress, sitting comfortably in bed. HENT: normocephalic, nontender, Eyes: EOMI, pupils equal and reactive bilaterally, no scleral icterus Cardiac: RRR, no murmurs, gallops or rubs. Normal S1, S2 Pulm: CTA BL, no wheezes, rhonchi. fine crackles present at bases of both lungs. moving air well throughout. Abd: soft, highly tender in epigastric region, mild LLQ TTP, no suprapubic or RLQ tenderness. no rebound, no guarding. Extremities: poor peripheral pulses, 1+ pitting edema at ankles bilaterally : guzman placed in ED Psych: conversant, mood and affect congruent, Neuro: A&Ox3, moving both upper limbs, parkinsonian gian-facial movements, resting tremor Results & Data Results & Data ([facility]) Vital Signs (Past 12 Hours) Vital Signs Temp Pulse Resp BP Pulse Ox 05/27/20 19:58 36.8 C 67 21 147/69 H 97 05/27/20 18:45 36.8 C 70 20 131/63 96 05/27/20 17:38 69 20 118/77 98 05/27/20 16:24 36.6 C 68 20 148/65 H 98 05/27/20 15:38 69 20 125/56 L 97 05/27/20 15:00 64 20 130/70 99 05/27/20 14:25 36.8 C 68 18 163/77 H 95 05/27/20 14:06 36.8 C 62 20 139/62 100 05/27/20 13:49 66 20 143/61 H 92 05/27/20 13:30 36.7 C 67 20 146/73 H 92 05/27/20 13:12 65 20 160/80 H 100 05/27/20 13:02 65 20 169/64 H 100 PG Care Time/CCT Total # of Minutes Spent Total Time Spent with Patient: Total time spent is greater than 50% in coordination of care (as documented) at patient's floor/unit and/or counseling patient: Coding Level of Care Code 05803 Subseq Obs Care Lvl 3 Diagnoses Unstable angina I20.0 Syncope R55 Syncope type: unspecified Chronic diastolic heart failure I50.32 Paroxysmal atrial fibrillation I48.0 Right ureteral stone N20.1 Essential tremor G25.0 Legally blind H54.8 CKD (chronic kidney disease), stage III N18.3 Multiple sclerosis G35 Seizure disorder G40.909 History of DVT (deep vein thrombosis) Z86.718 DM type 2 (diabetes mellitus, type 2) E11.69 Diabetes mellitus complication status: with other specified complication Diabetes mellitus rodent exterminator insulin use: without rodent exterminator use Hypertension I10 Hypertension type: essential hypertension Interstitial lung disease J84.9 CAD (coronary artery disease) I25.119 Associated angina: with unspecified angina Coronary Disease-Associated Artery/Lesion type: [place] artery [place] vs. transplanted heart: [place] heart Anemia D64.9 Anemia type: unspecified type Time Spent (min) 35 (1) DM type 2 (diabetes mellitus, type 2) Diabetes mellitus complication status: with other specified complication Diabetes mellitus retirement insulin use: without retirement use Qualified Code(s): E11.69 - Type 2 diabetes mellitus with other specified complication (2) CAD (coronary artery disease) Associated angina: with unspecified angina Coronary Disease-Associated A rtery/Lesion type: [place] artery [place] vs. transplanted heart: [place] heart Qualified Code(s): I25.119 - Atherosclerotic heart disease of [place] coronary artery with unspecified angina pectoris (3) Syncope Syncope type: unspecified Qualified Code(s): R55 - Syncope and collapse (4) Hypertension Hypertension type: essential hypertension Qualified Code(s): I10 - Essential (primary) hypertension (5) Anemia Anemia type: unspecified type Qualified Code(s): D64.9 - Anemia, unspecified
[2020-05-28] MEDS: LEVOTHYROXINE SODIUM 100 MCG TABLET PO SCH (05:57)
[2020-05-28] MEDS: PROMETHAZINE HCL 25 MG TAB PO SCH (08:54)
[2020-05-28] MEDS: POLYETHYLENE (MIRALAX) 17 GM PACK PO SCH (08:54)
[2020-05-28] MEDS: AMIODARONE 200 MG TAB PO SCH ×2 (08:55→20:02)
[2020-05-28] MEDS: FOLIC ACID 400 MCG TAB PO SCH (08:55)
[2020-05-28] MEDS: GABAPENTIN 800 MG TAB PO SCH ×3 (08:55→20:02)
[2020-05-28] MEDS: METOPROLOL SUCC 25MG EXT REL TAB PO SCH ×2 (08:56→20:04)
[2020-05-28] MEDS: carBAMazepine 200 MG TABLET PO SCH (08:56)
[2020-05-28] MEDS: ISOSORBIDE MONO EXTENDED REL 60 MG TABCR PO SCH (08:56)
[2020-05-28] MEDS: CEFDINIR 300 MG CAP PO SCH (08:56)
[2020-05-28] MEDS: ASPIRIN 81 MG ECTAB PO SCH (08:57)
[2020-05-28] MEDS: ROSUVASTATIN CALCIUM 5 MG TAB PO SCH (08:57)
[2020-05-28] MEDS: CLOPIDOGREL BISULFATE 75 MG TAB PO SCH (08:57)
[2020-05-28] MEDS: INSULIN ASPART 100 UNITS/ML 3 ML PEN SC SCH ×4 (08:58→21:02)
[2020-05-28] MEDS: CHECK FENTANYL PATCH PLACEMENT SCH ×3 (08:59→23:31)
[2020-05-28] MEDS: ONDANSETRON 4 MG OD TAB PO SCH (10:12)
--- NOTE | 2020-05-28 10:22 | Urology Progress Note ---
Date of Service May 28, 2020 Assessment & Plan (1) Right ureteral stone: 80yo F who is s/p Cysto, Right Stent placement on 05/13/20 admitted with syncope and unstable angina for cardiac work-up -Reviewed plan of care with Dr. Guallpa -Patient remains afebrile, WBC is stable -Creatinine is improving -Continue Gonzalez catheter -Continue management per primary team -No indication for acute Urologic intervention -Will continue to follow while inpatient Admission and Anticipated Discharge Date Admission Date: May 26, 2020 Subjective 80yo F who is s/p Cysto, Right Stent placement on 05/13/20 admitted for syncope and unstable angina for cardiac work-up -Doing well from a perspective -Denies any pain/discomfort currently -Gonzalez catheter intact, draining clear, yellow urine -Tolerating stent well -Denies fevers or chills -No nausea or vomiting No additional Urological concerns today Review of Systems Constitutional: as per Subjective / HPI Gastrointestinal: as per Subjective / HPI Genitourinary: as per Subjective / HPI Physical Exam Constitutional: well developed and well nourished; no acute distress Respiratory: normal respiratory effort and able to speak in complete sentences Gastrointestinal (Abdomen): Inspection/Auscultation: abdomen normal to inspection; abdomen not distended Skin: warm and dry, normal color Neurologic: awake; not confused Psychiatric: Orientation: alert, oriented x 3 and cooperative Genitourinary: Gonzalez catheter intact, draining clear, yellow urine Results & Data ([facility]) Vital Signs (Past 12 Hours) Vital Signs Temp Pulse Resp BP Pulse Ox 05/28/20 06:58 36.8 C 68 18 178/72 H 100 05/28/20 04:41 164/81 H 05/28/20 03:34 36.6 C 67 16 179/82 H 98 05/27/20 23:19 36.7 C 86 22 164/79 H 99 PG Care Time/CCT Total # of Minutes Spent Total Time Spent with Patient: Total time spent is greater than 50% in coordination of care (as documented) at patient's floor/unit and/or counseling patient: Coding Level of Care Code 97197 Subseq Hosp Care Lvl 2 Diagnoses Right ureteral stone N20.1
[2020-05-28] MEDS ORDERED: LORazepam 0.5 MG TAB SL STA (10:30)
--- NOTE | 2020-05-28 13:46 | Electrocardiogram Report ---
Test Reason : Blood Pressure : / mmHG Vent. Rate : 063 BPM Atrial Rate : 063 BPM P-R Int : 220 ms QRS Dur : 090 ms QT Int : 450 ms P-R-T Axes : 078 015 -13 degrees QTc Int : 460 ms Sinus rhythm with 1st degree A-V block T wave abnormality, consider anterolateral ischemia Abnormal ECG When compared with ECG of 26-MAY-2020 07:39, No significant change was found Confirmed by Nirmal Cummins ([id number]) on 05/28/2020 1:46:33 PM Referred By: REFERRED SELF Confirmed By:Nirmal Cummins
--- NOTE | 2020-05-28 14:54 | Cardiology Progress Note ---
Date of Service May 28, 2020 Assessment & Plan (1) Syncope: Patient admitted with symptoms of chest pain and syncope as well as near syncope. Underlying known coronary artery disease and recent non-ST segment elevation myocardial infarction in setting of acute sepsis. Cardiac catheterization discussed last admission but patient managed conservatively given multiple risk factors including persistent bleeding with hematuria indwelling ureteral stent and acute on chronic renal insufficiency at that time. Symptoms remain concerning. No acute ST segment changes on EKG troponin mildly elevated but will be trended during this admission. Currently on subcutaneous Lovenox for anticoagulation. Mild congestive heart failure on chest x-ray with response to single dose IV diuretic Paroxysmal atrial fibrillation noted during last hospitalization and patient discharged in atrial fibrillation now returns in sinus rhythm on combination of amiodarone and metoprolol Plan: Patient underwent diagnostic cardiac catheterization yesterday and demonstrating likely culprit lesion in mid left anterior descending receiving bare-metal stent successfully. Patient poorly tolerant of the procedure. Diffuse distal right coronary disease noted and not addressed interventionally to be managed medically. Patient will require triple therapy aspirin clopidogrel and anticoagulation with warfarin for 1 month prior to any urinary interventions. Ultimately patient will require lithotripsy of renal stone and renal stent removal after 4-week observation. Blood pressure is elevated today we will check BMP and CBC and likely resume lisinopril if renal function remains stable Warfarin will be reinstituted. Note outpatient dosing 4 mg p.o. daily (2) Unstable angina: (3) Chronic diastolic heart failure: (4) Anemia: Lab work rechecked today (5) Paroxysmal atrial fibrillation: Remains in sinus rhythm on combination of metoprolol and amiodarone. Metoprolol used on admission. No arrhythmias on telemetry. Anticipate discharging at home on amiodarone 200mg/day (6) Interstitial lung disease: Using oxygen at home Admission and Anticipated Discharge Date Admission Date: May 26, 2020 Subjective Patient seen and examined, chart, medications, telemetry reviewed. Patient this morning angry and anxious regarding multiple past and current planned procedures. No chest pain or worsening shortness of breath although blood pressure labile. No bleeding issues aware. No hematuria observed Blood pressure is elevated Patient did respond nicely to lorazepam earlier today regarding stress and anxiety issues. No lab work yet today Physical Exam Constitutional: + obese; no acute distress ENMT: external ear and nose normal, oropharynx normal Neck: + thick neck Cardiovascular: Rate/Rhythm: regular rate and regular rhythm Heart Sounds: normal S1 and normal S2 Vessels: radial pulses present (Left ulnar access site healing well) Gastrointestinal (Abdomen): Percussion/Palpation: abdomen soft; no hepatosplenomegaly Musculoskeletal: no cyanosis or clubbing, extremities motor strength 5/5 Psychiatric: A+Ox3, euthymic affect Results & Data ([facility]) Vital Signs (Past 12 Hours) Vital Signs Temp Pulse Pulse Resp BP Pulse Ox 05/28/20 08:00 69 05/28/20 06:58 36.8 C 68 18 178/72 H 100 05/28/20 04:41 164/81 H 05/28/20 03:34 36.6 C 67 16 179/82 H 98 Laboratory Results Laboratory Results - last 24 hr 05/27/20 05/27/20 05/28/20 16:22 20:18 08:55 POC Glucose 228 H 154 H 257 H 05/28/20 11:40 POC Glucose 222 H (1) Syncope Syncope type: unspecified Qualified Code(s): R55 - Syncope and collapse (2) Anemia Anemia type: unspecified type Qualified Code(s): D64.9 - Anemia, unspecified
[2020-05-28 15:13] LABS: Basophils # (auto) 0.02 K/uL (0-0.2); Basophils % (auto) 0.3 %; Eosinophils # (auto) 0.17 K/uL (0-0.5); Eosinophils % (auto) 2.1 %; Hematocrit (blood only) 23.9 % (37-47); Hemoglobin 7.7 g/dL (12.0-16.0); Immature Granulocytes # (auto) 0.01 K/uL (0.00-0.02); Immature Granulocytes % (auto) 0.1 %; Lymphocytes # (auto) 0.56 K/uL (1.2-3.4); Mean Corpuscular Hgb Conc 32.2 g/dL (32-36); Mean Corpuscular Volume 99.2 fL (80-100); Mean Platelet Volume 9.7 fL (7.4-10.4); Monocytes # (auto) 0.98 K/uL (0.11-0.59); Monocytes % (auto) 12.3 %; Neutrophils # (auto) 6.24 K/uL (1.4-6.5); Neutrophils % (auto) 78.2 %; Platelet Count 285 K/uL (130-400); RDW Coefficient of Variation 13.5 % (11.5-14.5); RDW Standard Deviation 48.8 fL (36.4-46.3); Red Blood Count 2.41 M/uL (4.2-5.4); White Blood Count 7.98 K/uL (4.8-10.8)
[2020-05-28 15:33] LABS: BUN Creatinine Ratio 14.7 (10-20); Calcium 9.5 mg/dl (8.5-10.1); Creatinine Clr Calc Pharmacy 34.1 ml/min; Est GFR (African American) 44.4; Est GFR (Non-African American) 38.3; Potassium 4.2 mmol/L (3.5-5.1)
[2020-05-28 15:50] LABS: RBC Morphology Unremarkable
[2020-05-28] MEDS ORDERED: WARFARIN SOD 5 MG TAB PO ONE (16:00)
--- NOTE | 2020-05-28 23:51 | Hospitalist Progress Note ---
Date of Service May 28, 2020 Assessment & Plan (1) Unstable angina: 80 yo F with PMH significant for chronic diastolic CHF, paroxysmal A. fib on Coumadin, interstitial lung disease on chronic O2 3 LNC, CKD stage III, MS, seizure disorder, CAD status post KYLER x3, hypothyroidism, DM 2, H/O recurrent DVT, recently discharged from hospital for kidney stones requiring stent placement and bacteremia secondary to UTI as well as NSTEMI. She presents with unstable angina. Unstable Angina Severe multi-vessel coronary artery disease -95% acute lateproximal/mid LAD 40% proximal circumflex, patent mid and distal stents. OM2 70% proximal, 80% ostial small left PLB Patent mid RCA stent, diffuse latemid to distal disease up to 90% distally 2. Elevated intracardiac filling pressure 3. Successful PCI of proximal to mid LAD with 2 overlapping bare-metal stents (2.75 x 12, 2.5 x 22 integrity). Recommendations: To PCU for continued monitoring Loaded with clopidogrel 600 mg in Eligibility Services Representative Continue dual-antiplatelet therapy for at least 1 year Antiplatelet therapy can be safely interrupted after 1 month for planned ureteral stent removal Continue statin, and ASCVD risk factor modification Consult cardiac Rehab Hemoglobin dropped a bit today, maybe secondary to procedure, will continue to place on warfarin as patient is high risk for dvt and monitor. will need to be discharged on 4 mg of coumadin Epigastric pain - similar to previous admission symptoms of CHF overload; resolved after diuresis -Could be related to angina -LFTs and lipase are normal - CT abd/pelv noncon: BL nephrolithiasis, no diverticulitis, CKD stage 3 - Cr 1.4, at baseline - guzman placed in ED HTN - continue BP meds as above CAD-with history of KYLER x3, here with unstable angina as above - continue aspirin, rosuvastatin, metoprolol, isosorbide DM2 - pioglitazone, metformin, glipizide from home held - insulin sliding scale, will need to calc basal req going forward - A1c 6.8 last admission Constipation - sennosides, milk of mag, miralax ordered MS+ Seizure disorder - known to Dr. Pierce - continue carbamazepine, promethazine per home regimen ILD/chronic respiratory failure with hypoxia - on home o2 requirement of 3L NC, will monitor Legally blind - noted Lumbar and cervical radiculopathy - chronically on fentanyl patch for radicular pain control Hypothyroidism -TSH was recently normal -Continue home levothyroxine History of recurrent DVT -Continue bridging Lovenoxand restarted coumadin -Follow PT/INR in the morning FEN/GI: diabetic diet, NPO at MN DVT ppx: therapeutic lovenox Code Status: DNR/DNI Dispo: PCU/Tele (2) Syncope: - may be orthostatic/vasovagal when she is getting up to the toilet versus arrhythmia versus cardiac ischemia -Echocardiogram without significant valvular disease on recent admission - BP more hypertensive at this time -Cardiology recommended lowering the dose of Toprol-XL down to 25 mg twice daily (3) Chronic diastolic heart failure: Acute on chronic diastolic CHF - ECHO last admission 45-50%, no aortic stenosis, left ventricular hypertrophy and global left ventricular hypokinesis, - peripheral edema on exam, BNP 7.4k, previously 1.5k -Chest x-ray with chronic changes but difficult to rule out pulmonary edema - 1 dose 40 mg IV lasix in ED; will dose Lasix as needed day-to-day - daily I/Os, weights (4) Paroxysmal atrial fibrillation: -Lovenox bridging to Coumadin -Continue metoprolol XL 50 p.o. BID -Follow daily INR, currently 1.4 on admission (5) Right ureteral stone: - As above - continue cefdinir 300 mg daily as per previous UTI. - per urology notes last admission, stent to be removed in 4-6 weeks from insertion - urology consulted given hematuria and complicated course (6) Essential tremor: -Noted history of parkinsonian features, needs metoprolol for PAF for rate control in lieu of propranolol. (7) Legally blind: - Noted (8) CKD (chronic kidney disease), stage III: -Baseline creatinine 1.3-1.5, creatinine 1.41 on admission, at baseline -S/p right-sided ureteral stent placed by Dr. Salvador on 05/15/2020, anticipate stent removal in approximately 1 to 2 weeks -Follow-up with urology as outpatient (9) Multiple sclerosis: -Noted, follows with Dr. Pierce, neurology as outpatient. -PT/OT (10) Seizure disorder: (11) History of DVT (deep vein thrombosis): (12) DM type 2 (diabetes mellitus, type 2): -A1c = 6.8 during last admission -ISS with Accu-Cheks ACHS -Hold glipizide, metformin for now (13) Hypertension: -BP 153/67, continue Metoprolol -Had held HCTZ and lisinopril on discharge during last admission, did not resume (14) Interstitial lung disease: (15) CAD (coronary artery disease): -Medications as above (16) Anemia: Chronic Anemia -Slowly worsening -Hg 8.3, 9.4 on discharge 05/22 -Now 7.7, will monitor - FOBT negative in ED, no report of hematochezia/hematemesis, - Anemia labs ordered Admission and Anticipated Discharge Date Admission Date: May 28, 2020 Subjective Patient reports feeling better today, less anxious, less chest pain. Review of Systems Review of Systems: All systems reviewed & are unremarkable except as noted in HPI & below Physical Exam Physical Exam: Constitutional: obese, in no apparent distress, sitting comfortably in bed. HENT: normocephalic, nontender, Eyes: EOMI, pupils equal and reactive bilaterally, no scleral icterus Cardiac: RRR, no murmurs, gallops or rubs. Normal S1, S2 Pulm: CTA BL, no wheezes, rhonchi. moving air well throughout. Abd: soft, nontender, no suprapubic or RLQ tenderness. no rebound, no guarding. Extremities: poor peripheral pulses, 1+ pitting edema at ankles bilaterally Psych: conversant, mood and affect congruent, Neuro: A&Ox3, moving both upper limbs, parkinsonian gian-facial movements, resting tremor Results & Data Results & Data ([facility]) Vital Signs (Past 12 Hours) Vital Signs Temp Pulse Pulse Resp BP Pulse Ox 05/28/20 23:28 36.8 C 64 21 150/56 H 99 05/28/20 19:21 37.1 C 63 20 179/69 H 100 05/28/20 16:16 36.6 C 58 L 16 153/68 H 100 05/28/20 16:00 61 PG Care Time/CCT Total # of Minutes Spent Total Time Spent with Patient: Total time spent is greater than 50% in coordination of care (as documented) at patient's floor/unit and/or counseling patient: Coding Level of Care Code 11513 Subseq Hosp Care Lvl 2 Diagnoses Unstable angina I20.0 Syncope R55 Syncope type: unspecified Chronic diastolic heart failure I50.32 Paroxysmal atrial fibrillation I48.0 Right ureteral stone N20.1 Essential tremor G25.0 Legally blind H54.8 CKD (chronic kidney disease), stage III N18.3 Multiple sclerosis G35 Seizure disorder G40.909 History of DVT (deep vein thrombosis) Z86.718 DM type 2 (diabetes mellitus, type 2) E11.69 Diabetes mellitus complication status: with other specified complication Diabetes mellitus terminal supervisor insulin use: without terminal supervisor use Hypertension I10 Hypertension type: essential hypertension Interstitial lung disease J84.9 CAD (coronary artery disease) I25.119 Associated angina: with unspecified angina Coronary Disease-Associated Artery/Lesion type: [place] artery [place] vs. transplanted heart: [place] heart Anemia D64.9 Anemia type: unspecified type (1) DM type 2 (diabetes mellitus, type 2) Diabetes mellitus complication status: with other specified complication Diabetes mellitus fci insulin use: without fci use Qualified Code(s): E11.69 - Type 2 diabetes mellitus with other specified complication (2) CAD (coronary artery disease) Associated angina: with unspecified angina Coronary Disease-Associated Artery/Lesion type: [place] artery [place] vs. transplanted heart: [place] heart Qualified Code(s): I25.119 - Atherosclerotic heart disease of [place] coronary artery with unspecified angina pectoris (3) Anemia Anemia type: unspecified type Qualified Code(s): D64.9 - Anemia, unspecified (4) Syncope Syncope type: unspecified Qualified Code(s): R55 - Syncope and collapse (5) Hypertension Hypertension type: essential hypertension Qualified Code(s): I10 - Essential (primary) hypertension
[2020-05-29] MEDS: LEVOTHYROXINE SODIUM 100 MCG TABLET PO SCH (05:39)
[2020-05-29 06:51] LABS: Hematocrit (blood only) 26.5 % (37-47); Hemoglobin 8.4 g/dL (12.0-16.0); Mean Corpuscular Hemoglobin 31.3 pg (25-34); Mean Corpuscular Hgb Conc 31.7 g/dL (32-36); Mean Corpuscular Volume 98.9 fL (80-100); Mean Platelet Volume 9.7 fL (7.4-10.4); Platelet Count 305 K/uL (130-400); RDW Coefficient of Variation 13.7 % (11.5-14.5); RDW Standard Deviation 48.8 fL (36.4-46.3); Red Blood Count 2.68 M/uL (4.2-5.4)
[2020-05-29 07:03] LABS: INR 1.6 (0.9-1.1); Prothrombin Time 16.8 Seconds (9.0-12.0)
[2020-05-29 07:22] LABS: BUN Creatinine Ratio 12.8 (10-20); Calcium 9.5 mg/dl (8.5-10.1); Creatinine Clr Calc Pharmacy 38.1 ml/min; Est GFR (African American) 50.8; Est GFR (Non-African American) 43.8; Potassium 4.5 mmol/L (3.5-5.1)
[2020-05-29] MEDS: POLYETHYLENE (MIRALAX) 17 GM PACK PO SCH (08:30)
[2020-05-29] MEDS: GABAPENTIN 800 MG TAB PO SCH (08:31)
[2020-05-29] MEDS: ASPIRIN 81 MG ECTAB PO SCH (08:31)
[2020-05-29] MEDS: AMIODARONE 200 MG TAB PO SCH (08:31)
[2020-05-29] MEDS: ROSUVASTATIN CALCIUM 5 MG TAB PO SCH (08:31)
[2020-05-29] MEDS: ISOSORBIDE MONO EXTENDED REL 60 MG TABCR PO SCH (08:31)
[2020-05-29] MEDS: carBAMazepine 200 MG TABLET PO SCH (08:31)
[2020-05-29] MEDS: FOLIC ACID 400 MCG TAB PO SCH (08:31)
[2020-05-29] MEDS: METOPROLOL SUCC 25MG EXT REL TAB PO SCH (08:31)
[2020-05-29] MEDS: CLOPIDOGREL BISULFATE 75 MG TAB PO SCH (08:31)
[2020-05-29] MEDS: CEFDINIR 300 MG CAP PO SCH (08:31)
[2020-05-29] MEDS: PROMETHAZINE HCL 25 MG TAB PO SCH (08:32)
[2020-05-29] MEDS: CHECK FENTANYL PATCH PLACEMENT SCH (08:32)
[2020-05-29] MEDS: INSULIN ASPART 100 UNITS/ML 3 ML PEN SC SCH (08:42)
[2020-05-29] MEDS: ONDANSETRON 4 MG OD TAB PO SCH (08:47)
--- NOTE | 2020-05-29 11:33 | Discharge Summary ---
Date of Service May 29, 2020 Admission HPI Per Admitting Provider Patient is a 80-year-old female with a past medical history of chronic diastolic CHF, paroxysmal A. fib on Coumadin, interstitial lung disease on chronic O2 3 LNC, CKD stage III, MS, seizure disorder, CAD status post KYLER x3, hypothyroidism, DM 2, H/O recurrent DVT, recently discharged from hospital for kidney stones requiring stent placement and bacteremia secondary to UTI as well as NSTEMI. She presented to the emergency department this morning with concern for chest pain and syncopal episode she was having at home. Chest pain started last night and was in her middle of her chest without radiation a pressure sensation that was relieved with nitroglycerin. She says that since coming home from the hospital she has had multiple episodes of syncope notably when she is either going to the bathroom or getting up from the bathroom. She states that she is unable to get up and walk around on her own and therefore cannot do much by herself however that is baseline for her. She denies any increasing fatigue or dizziness. She denies any visual blackouts prior to the syncopal episodes however patient is blind. She denies any current chest pain or any change in difficulty breathing. Principal Diagnosis Pt states she feels at her usual. She states no further chest pain or syncope since having her stent placed. She has been tolerating PO without issue stating "I eat everything". Pt denies fever, SOB, abd pain, n/v/c/d, LE pain. She would like to go home and is taking off her gown in preparation to do so during our discussion. She does note her usual level of b/l LE swelling. Discharge Exam Constitutional WD/WN, vitals as above Eyes normal visual tamayo by confrontation and + anicteric sclerae Neck normal visual inspection and trachea midline Respiratory normal respiratory effort, lungs clear to auscultation Cardiovascular Rate/Rhythm: regular rate and regular rhythm Trace b/l LE swelling Gastrointestinal (Abdomen) Inspection/Auscultation: abdomen not distended Percussion/Palpation: abdomen soft; abdomen nontender Musculoskeletal Head/Neck/Chest: normocephalic and head atraumatic Skin no rashes, warm and dry Neurologic awake; not confused Speech / Cognition: normal speech Psychiatric A+Ox3, euthymic affect Discharge Data Allergies Allergy/AdvReac Type Severity Reaction Status Date / Time allopurinol Allergy Unknown COUGH Verified 05/26/20 08:21 blue dye Allergy Unknown BRILLIANT Verified 05/26/20 08:21 BLUE FCF dimethyl fumarate Allergy Unknown UNKNOWN Verified 05/26/20 08:21 Consultations 05/26/20 09:38 ED Decision to Admit Stat 05/26/20 11:21 Consult Cardiology Routine 05/26/20 13:14 Consult Case Management - Discharge Planning Routine 05/26/20 14:17 Consult Urology Routine 05/27/20 13:23 Consult Cardiac Rehabilitation Routine Procedures Performed Operation Date: 05/27/20 09:30 Actual Procedures p Cath, Left with Cors and Vent - Ayan Hernandez MD s Cineradiography w/Routine Exam - Ayan Hernandez MD s Bare Metal Stent SGL Vessel - Ayan Hernandez MD Ordered Studies 05/26/20 11:11 CT abd pelvis wo con Stat 05/27/20 06:37 CL Cath Imgs for PACS use only Routine 05/27/20 10:24 CL Cath Imgs for PACS use only Stat Hospital Course (1) Unstable angina: 80 yo F with PMH significant for chronic diastolic CHF, paroxysmal A. fib on Coumadin, interstitial lung disease on chronic O2 3 LNC, CKD stage III, MS, seizure disorder, CAD status post KYLER x3, hypothyroidism, DM 2, H/O recurrent DVT, recently discharged from hospital for kidney stones requiring stent placement and bacteremia secondary to UTI as well as NSTEMI. She presents with unstable angina. Unstable Angina/afib Severe multi-vessel coronary artery disease -95% acute lateproximal/mid LAD 40% proximal circumflex, patent mid and distal stents. OM2 70% proximal, 80% ostial small left PLB Patent mid RCA stent, diffuse latemid to distal disease up to 90% distally 2. Elevated intracardiac filling pressure 3. Successful PCI of proximal to mid LAD with 2 overlapping bare-metal stents (2.75 x 12, 2.5 x 22 integrity). Recommendations: Loaded with clopidogrel 600 mg in Adding Machine Mechanic Continue dual-antiplatelet therapy for at least 1 year Antiplatelet therapy can be safely interrupted after 1 month for planned ureteral stent removal Continue statin, and ASCVD risk factor modification Consult cardiac Rehab Will need to continue coumadin as well. 1.6 on d/c HHN to check INR tomorrow with results to PCP Advised to take 5mg coumadin today and will bridge with lovenox as was doing prior to re-admission Epigastric pain - similar to previous admission symptoms of CHF overload; resolved after diuresis -Could be related to angina -LFTs and lipase are normal - CT abd/pelv noncon: BL nephrolithiasis, no diverticulitis, DM2 - pioglitazone, metformin, glipizide from home held - insulin sliding scale, will need to calc basal req going forward - A1c 6.8 last admission Constipation - sennosides, milk of mag, miralax ordered ILD/chronic respiratory failure with hypoxia - on home o2 requirement of 3L NC, will monitor Lumbar and cervical radiculopathy - chronically on fentanyl patch for radicular pain control Hypothyroidism -TSH was recently normal -Continue home levothyroxine History of recurrent DVT -Continue bridging Lovenox and restarted coumadin -Follow PT/INR in the morning (2) Syncope: - may be orthostatic/vasovagal when she is getting up to the toilet versus arrhythmia versus cardiac ischemia -Echocardiogram without significant valvular disease on recent admission - BP more hypertensive at this time -Cardiology recommended lowering the dose of Toprol-XL down to 25 mg twice daily (3) Chronic diastolic heart failure: Acute on chronic diastolic CHF - ECHO last admission 45-50%, no aortic stenosis, left ventricular hypertrophy and global left ventricular hypokinesis, - peripheral edema on exam, BNP 7.4k, previously 1.5k -Chest x-ray with chronic changes but difficult to rule out pulmonary edema (4) Paroxysmal atrial fibrillation: -Lovenox bridging to Coumadin -Continue metoprolol XL 50 p.o. BID -Follow daily INR, 1.6 on d/c (5) Right ureteral stone: - As above - continue cefdinir 300 mg daily as per previous UTI. - per urology notes last admission, stent to be removed in 4-6 weeks from insertion - urology consulted given hematuria and complicated course (6) Essential tremor: -Noted history of parkinsonian features, needs metoprolol for PAF for rate control in lieu of propranolol. (7) Legally blind: - Noted (8) CKD (chronic kidney disease), stage III: -Baseline creatinine 1.3-1.5, creatinine 1.41 on admission, at baseline -S/p right-sided ureteral stent placed by Dr. Salvador on 05/15/2020, will need addressed, but timeline now 4 weeks to allow for 4 weeks of DESHAWN -Follow-up with urology as outpatient (9) Multiple sclerosis: -Noted, follows with Dr. Pierce, neurology as outpatient. -PT/OT (10) Seizure disorder: (11) History of DVT (deep vein thrombosis): (12) DM type 2 (diabetes mellitus, type 2): -A1c = 6.8 during last admission -ISS with Accu-Cheks ACHS -Resume home medications on d/c (13) Hypertension: -BP 153/67, continue Metoprolol -Had held HCTZ and lisinopril on discharge during last admission, did not resume (14) Interstitial lung disease: (15) CAD (coronary artery disease): -Medications as above (16) Anemia: Chronic Anemia -Slowly worsening -Hg 8.3, 9.4 on discharge 05/22, currently stable at 8.4 on d/c today - FOBT negative in ED, no report of hematochezia/hematemesis, MCV elevated with B12 WNL Total Time Total Time Spent Total Time Spent (In Minutes): >30 Discharge Plan Discharge Items Patient Disposition: Home - Home Health Services Reason For Visit: CHEST PAIN Activity: Resume your previous activity Non-emergency contact: Primary Care Provider and Resilient Tile Installer Call non-emergency contact if: you have any medication questions, your symptoms worsen and your pain is not controlled Follow-up/Referrals: Tyrone Cortez [Physician [employer] Roller] - 06/06/20 3:00 pm Chris Reis PA-C [Primary Care Provider] - 06/02/20 10:00 am (3-5 days) Diet: Regular and Carb Consistent or DM2 Ambulatory Orders: Prothrombin Time INR (Timed) Timeframe: 1 Day Location: Outside Location Ordered By: Kataj De La Cruz Attending Provider Instructions: Your INR is a bit low. You should take coumadin 5mg tonight. You will have your INR checked tomorrow with Home Health with results to Chris Reis's office. They will call you to let you know what dose you should take tomorrow. You should call their office in the afternoon to discuss this with them. You will need to continue with the lovenox injections until your INR is between 2-3 for 48 hours. You should also discuss this with Mr. Reis when you discuss your coumadin dosing. You should be seen by Mr. Reis in 3-5 days. You should be seen by Dr. Borja in 3-5 days. Pending Studies at Discharge: No Stand-Alone Forms: [facility], Smoking Cessation Medications and DC Order Prescriptions: New clopidogrel 75 mg Tablet 75 mg PO QAM Qty: 30 RF: 0 metoprolol succinate 25 mg Tablet Extended Release 24 Hr 25 mg PO BID Qty: 60 RF: 0 lisinopril 2.5 mg Tablet 2.5 mg PO QAM Qty: 30 RF: 0 warfarin 4 mg tablet 4 mg PO DAILY Qty: 30 RF: 0 Continued fentanyl 25 mcg/hr patch 72 hour 1 patch TD .COMPLEX RF: 0 biotin 5 mg tablet 5 tab PO DAILY RF: 0 warfarin 1 mg tablet 0 mg PO DAILY RF: 0 aspirin 81 mg tablet,delayed release (DR/EC) 81 mg PO DAILY RF: 0 pioglitazone 15 mg tablet 15 mg PO DAILY RF: 0 buspirone 10 mg tablet 10 mg PO BID PRN (Reason: Anxiety) RF: 0 carbamazepine 200 mg tablet 200 mg PO DAILY RF: 0 glipizide 10 mg tablet 10 mg PO BID RF: 0 levothyroxine [Synthroid] 100 mcg tablet 100 mcg PO DAILY RF: 0 lorazepam 0.5 mg tablet 0.5 mg PO DAILY PRN (Reason: Anxiety) RF: 0 Trulicity 1.5 mg/0.5 mL pen injector 0 mg SQ WEEKLY RF: 0 metformin 500 mg tablet 500 mg PO BID RF: 0 nitroglycerin 0.4 mg tablet, sublingual 0.4 mg SL Q5M PRN (Reason: Chest Pain) RF: 0 gabapentin 800 mg tablet 800 mg PO TID Qty: 270 RF: 3 promethazine 12.5 mg tablet 12.5 mg PO DAILY RF: 0 senna 8.6 mg Capsule 8.6 mg PO BID PRN (Reason: Constipation) RF: 0 acetaminophen [Tylenol] 325 mg Tablet 650 mg PO Q6 PRN (Reason: Pain) RF: 0 folic acid 400 mcg Tablet 0.4 mg PO DAILY RF: 0 ergocalciferol (vitamin D2) [Vitamin D2] 1,250 mcg (50,000 unit) Capsule 1,250 mcg PO WK RF: 0 ondansetron HCl 4 mg tablet 4 mg PO DAILY RF: 0 isosorbide mononitrate 120 mg tablet extended release 24 hr 120 mg PO DAILY RF: 0 rosuvastatin 5 mg tablet 5 mg PO DAILY RF: 0 Linzess 72 mcg Capsule 0 mcg PO DAILY RF: 0 furosemide 40 mg tablet 40 mg PO DAILY PRN (Reason: Edema) RF: 0 amiodarone 200 mg Tablet 200 mg PO BID Qty: 60 RF: 0 enoxaparin [Lovenox] 80 mg/0.8 mL syringe 80 mg subcut DAILY Qty: 8 RF: 0 cefdinir 300 mg capsule 300 mg PO DAILY Qty: 14 RF: 0 Discontinued metoprolol succinate 50 mg Tablet Extended Release 24 Hr 50 mg PO BID Qty: 60 RF: 0 nitrofurantoin macrocrystal [Macrodantin] 50 mg capsule 50 mg PO HS Qty: 30 RF: 0 Discharge Orders: Discharge Order (Routine); Ordered 05/29/20 Ordered By: Katja Capps Admission Data Admit Date/Time: 05/28/20 16:02 Attending Provider: Katja Capps Admit Provider: Vanessa Scruggs Primary Care Provider: Chris Reis Other Providers: Perez Borja ; Ginny Skaggs ; Fletcher Guallpa ; [facility] Other Interventions: Discharge Summary Assessment (RN) Last Done: 05/29/20 11:25 Coding Level of Care Code D/C Day Management >30 mins Diagnoses Unstable angina I20.0 Syncope R55 Syncope type: unspecified Chronic diastolic heart failure I50.32 Paroxysmal atrial fibrillation I48.0 Right ureteral stone N20.1 Essential tremor G25.0 Legally blind H54.8 CKD (chronic kidney disease), stage III N18.3 Multiple sclerosis G35 Seizure disorder G40.909 History of DVT (deep vein thrombosis) Z86.718 DM type 2 (diabetes mellitus, type 2) E11.69 Diabetes mellitus complication status: with other specified complication Diabetes 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 transplanted heart: [place] heart Anemia D64.9 Anemia type: unspecified type
== END 2020-05-29 11:59 | disposition home health service (06) | DRG 246 ==
LOC: 2S 07:32 → ED 07:32 → SUATTDRO 11:22 → 2S 11:49 → SUATTDRO 05-28 16:02

== ENCOUNTER 2020-06-12 14:05 | Inpatient (IN) ==
--- NOTE | 2020-06-12 14:26 | Emergency Department Note ---
Impression & Plan Hematoma of left hip, Anemia, Supratherapeutic INR, Fall, CVA (cerebral vascular accident) ED Provider Note INFORMANT: Patient ED PROVIDER(S): Mike Bernal MD CHIEF COMPLAINT: Fall PLAN: Disposition: Admitted Condition: Good MEDICAL DECISION MAKING: Patient presented because of a fall. She had a hematoma of the left hip. CT imaging of her head revealed a age-indeterminate infarct. This will need furt her evaluation. The patient's CBC showed a moderate anemia. Slightly worse than prior. Her chemistry panel was unremarkable. She had a supratherapeutic INR. She was given oral vitamin K. The patient also appears to have a UTI and was treated with IV Rocephin. She was treated with IV morphine for pain control. Given her supratherapeutic INR and her anemia with the hematoma on the left hip she will need further management in the hospital. She may require transfusion. There was no fracture seen on the hip CT. I discussed the case with the hospitalist service. Patient was admitted for further management. Triage Nursing notes reviewed and agree them. Additional history obtained from Prior medical records reviewed, longstanding anemia. Vital Signs: reviewed and remarkable for no significant abnormalities Differential diagnosis: Hematoma, CHI, fracture, subluxation, dislocation, contusion, ligamentous injury, neurovascular, compartment syndrome, rhabdomyolysis, as well as other pathologies. Diagnostics interpreted by me: Cardiac Monitoring: Cardiac monitoring ordered by me: The patient was placed on continuous cardiac monitoring and observed. It revealed a normal sinus rhythm at 62 beats per minute without ectopy or evidence of dysrhythmia. Imaging studies: Head CT: A noncontrast CT scan of the head was performed and was negative for tumor, fracture, intracranial hemorrhage, or other acute pathology. Age-indeterminate infarct noted in the right. CT imaging of the left hip reveals soft tissue edema. No fracture or d islocation. X-ray imaging of the left tib-fib is negative for fracture or dislocation. Consultation(s): Dr. Angela, hospital service HPI: The patient is a 80-year-old female with a past medical history of chronic diastolic CHF, paroxysmal A. fib on Coumadin, interstitial lung disease on chronic O2 3 LNC, CKD stage III, MS, seizure disorder, CAD status post KYLER x3, hypothyroidism, DM 2, H/O recurrent DVT,who presents to the Emergency Room with complaints of a fall last night. This occurred last night while trying to climb into bed. She states she simply lost her balance and fell onto her left hip. The patient also notes the following associated symptoms, swelling and bruising around the left hip, minor head impact, mild nausea, and left sky pain. The patient has been using her fentanyl patch for relieving factors. Current pain is rated as 6/10. Patient had difficulty walking today and the hematoma was ge tting larger. She presented to the ER for further evaluation. Pt denies LOC, headache, fevers, chills, diaphoresis, visual changes, neck pain, chest pain, breathing difficulties, vomiting, abdominal pain, back pain, melena, hematochezia, urinary symptoms, numbness, weakness, lymphadenopathy, rash, or other complaints. ROS: See above HPI for pertinent positives & negatives. A total of 10 systems reviewed and were otherwise negative. PAST MEDICAL HISTORY:See Below, CHF, anticoagulated, A. fib PAST SURGICAL HISTORY:See Below, FAMILY HISTORY:See Below SOCIAL HISTORY:See Below, HOME MEDICATIONS:See Below ALLERGIES:See Below VITALS:See Below PHYSICAL EXAMINATION: GENERAL: Awake, alert, uncomfortable-appearing, in no distress HENT: Normocephalic, atraumatic. Oropharynx unremarkable. EYES: Normal conjunctiva. Sclera non-icteric. NECK: Inspection normal. Non-tender. Supple. No nuchal rigidity. FROM. No masses. RESPIRATORY: Clear to auscultation. No wheezes. No rales. Normal respiratory effort. CARDIAC: Normal rate. Irregular rhythm. No murmurs. No rubs. Extremities warm and well perfused. Pulses equal. No JVD. GI: Soft, non-distended. No tenderness to palpation. No rebound or guarding. No masses. RECTAL: Deferred. MUSCULOSKELETAL: There is a large hematoma over the left hip. Range of motion is somewhat limited secondary to pain although not significantly limited. There is tenderness about the tibia and fibula on the left side without gross deformity or hematoma. Chest examination reveals no tenderness. The back is symmetrical on inspection without obvious abnormality. There is no CVA tenderness to palpation. No joint edema. LOWER EXTREMITIES: Calves are equal size bilaterally and non-tender. No edema. No discoloration. NEURO: Normal sensorium. No sensory or motor deficits noted. SKIN: No rash or jaundice noted. Mike Bernal MD Past Med/Surg History Medical History CAD (coronary artery disease) July 2009 -NSTEMI 2009-2 KYLER to circumflex obtuse marginal, 1 KYLER to RCA Carotid artery stenosis CKD (chronic kidney disease), stage III DM type 2 (diabetes mellitus, type 2) Dyslipidemia History of DVT (deep vein thrombosis) Hypertension Hypothyroidism Interstitial lung disease Legally blind Multiple sclerosis Seizure disorder Surgical History History of hysterectomy History of tonsillectomy Hx of cholecystectomy Family History Mother Heart disease Social History Smoking Status: Never smoker Hx Alcohol Use: No Hx Substance Use: No Preferred Language: Sami Communication Ability: Effective Industrial Tech Instructor Required: No Beliefs That Will Affect Care: None Current Living Situation: Spouse and Family Feels Safe at Home: Yes Assistive Devices: Walker Allergies Allergies Allergy/AdvReac Type Severity Reaction Status Date / Time allopurinol Allergy Unknown COUGH Verified 06/12/20 17:31 blue dye Allergy Unknown BRILLIANT Verified 06/12/20 17:31 BLUE FCF dimethyl fumarate Allergy Unknown UNKNOWN Verified 06/12/20 17:31 Home Meds Home Medications Medication Instructions Recorded Confirmed aspirin 81 mg tablet,delayed 81 mg PO DAILY tab 05/25/19 06/12/20 release biotin 5 mg tablet 5 tab PO DAILY tab 05/25/19 06/12/20 fentanyl 25 mcg/hr transdermal 1 patch TD .COMPLEX ea 05/25/19 06/12/20 patch pioglitazone 15 mg tablet 15 mg PO DAILY tab 05/25/19 06/12/20 buspirone 10 mg tablet 10 mg PO BID PRN 09/03/19 06/12/20 carbamazepine 200 mg tablet 200 mg PO DAILY tab 09/03/19 06/12/20 dulaglutide 1.5 mg/0.5 mL 0 mg SQ WEEKLY ml 09/03/19 06/12/20 subcutaneous pen injector glipizide 10 mg tablet 10 mg PO BID 09/03/19 06/12/20 levothyroxine 100 mcg tablet 100 mcg PO DAILY 09/03/19 06/12/20 lorazepam 0.5 mg tablet 0.5 mg PO DAILY PRN 09/03/19 06/12/20 metformin 500 mg tablet 500 mg PO QAM 09/03/19 06/12/20 nitroglycerin 0.4 mg sublingual 0.4 mg SL Q5M PRN 09/03/19 06/12/20 tablet acetaminophen [Tylenol] 650 mg PO Q6 PRN 09/19/19 06/12/20 ergocalciferol (vitamin D2) 1,250 mcg PO WK 09/19/19 06/12/20 [Vitamin D2] folic acid 0.4 mg PO DAILY 09/19/19 06/12/20 senna 8.6 mg PO BID PRN 09/19/19 06/12/20 furosemide 40 mg PO DAILY PRN 05/13/20 06/12/20 isosorbide mononitrate 120 mg PO DAILY 05/13/20 06/12/20 rosuvastatin 5 mg PO HS 05/13/20 06/12/20 amiodarone 200 mg PO DAILY 06/12/20 06/12/20 diclofenac sodium 2 g TOPICAL QID PRN 06/12/20 06/12/20 potassium chloride [Klor-Con M10] 10 meq PO DAILY PRN 06/12/20 06/12/20 propranolol 60 mg PO QAM 06/12/20 06/12/20 warfarin 4 mg PO QPM 06/12/20 06/12/20 Previous Rx's Medication Instructions Recorded gabapentin 800 mg tablet 800 mg PO TID #270 tab 09/03/19 clopidogrel 75 mg PO QAM #30 tab 05/29/20 Results & Data (ED) Vital Signs Vital Signs - 24 hr 06/12/20 14:10 06/12/20 17:00 06/12/20 18:00 Temperature 37.2 C Temperature Source Oral Pulse Rate 54 L 54 L Pulse Rate [Radial] 57 L 55 L Pulse Rhythm Regular Pulse Rhythm [Radial] Regular Regular Pulse Strength [Radial] Normal Respiratory Rate 18 18 20 Respiratory Effort / Characteristics Non-Labored Spontaneous Non-Labored Spontaneous Respiratory Depth Normal Normal Respiratory Pattern Regular Regular Blood Pressure 176/59 H Blood Pressure [Right Arm] 196/113 H 159/78 H Blood Pressure Mean 98 Blood Pressure Mean [Right Arm] 140 105 Pulse Oximetry 100 100 94 Oxygen Delivery Method Nasal Cannula Nasal Cannula Nasal Cannula Oxygen Flow Rate 3 3 3 Sepsis Recent Fever Within 48 Hours No Sepsis New/Unexplained Change in Mental Status No Sepsis Action Taken by Nursing No Action Required Laboratory Data Result diagrams: 06/12/20 16:30 Lab Results 06/12/20 06/12/20 06/12/20 Range/Units 16:30 16:30 16:46 WBC 6.92 (4.8-10.8) K/uL RBC 2.48 L (4.2-5.4) M/uL Hgb 7.8 L (12.0-16.0) g/dL Hct 24.6 L (37-47) % MCV 99.2 (80-100) fL MCH 31.5 (25-34) pg MCHC 31.7 L (32-36) g/dL RDW Std Deviation 52.0 H (36.4-46.3) fL RDW Coeff of Gillian 14.5 (11.5-14.5) % Plt Count 342 (130-400) K/uL MPV 9.5 (7.4-10.4) fL Immature Gran % (Auto) 0.1 % Neut % (Auto) 72.7 % Lymph % (Auto) 10.5 % Posey % (Auto) 12.9 % Eos % (Auto) 3.5 % Baso % (Auto) 0.3 % Neut # (Auto) 5.03 (1.4-6.5) K/uL Lymph # (Auto) 0.73 L (1.2-3.4) K/uL Posey # (Auto) 0.89 H (0.11-0.59) K/uL Eos # (Auto) 0.24 (0-0.5) K/uL Baso # (Auto) 0.02 (0-0.2) K/uL Immature Gran # (Auto) 0.01 (0.00-0.02) K/uL Ovalocytes 1+ PT 73.4 H (9.0-12.0) Seconds INR 7.8 H* (0.9-1.1) Urine Color Dark Yellow Urine Appearance Cloudy A (Clear) Urine pH 6.0 (4.5-7.5) Ur Specific [place] 1.011 (1.000-1.030) Urine Protein 1+ H (Negative) Urine Glucose (UA) Negative (Negative) Urine Ketones Negative (Negative) Urine Blood 3+ H (Negative) Urine Nitrite Positive A (Negative) Urine Bilirubin Negative (Negative) Urine Urobilinogen Negative (Negative) Ur Leukocyte Esterase 3+ H (Negative) Urine WBC (Auto) >30 H (0-5) /hpf Urine RBC (Auto) >30 H (0-4) /hpf U Hyaline Cast (Auto) 0 (0-5) /lpf U Epithel Cells (Auto) 5-10 H (0-5) /lpf Urine Bacteria (Auto) Negative (Negative) Urine Yeast Budding A (None Prsent) Administered Medications Discontinued Medications Ceftriaxone Sodium (Rocephin) 1,000 mg in 50 mls @ 100 mls/hr IV NOW STA Stop: 06/12/20 18:38 Last Infusion: 06/12/20 19:03 Dose: 0 mls/hr Documented by: [id number] Admin: 06/12/20 18:23 Dose: 100 mls/hr Documented by: [id number] Morphine Sulfate (Morphine Sulfate 4 Mg/Ml 1 Ml Carp\Vial) 4 mg IV NOW STA Stop: 06/12/20 14:57 Last Admin: 06/12/20 17:01 Dose: 4 mg Documented by: [id number] Morphine Sulfate (Morphine Sulfate 2 Mg/Ml Carp) 2 mg IV NOW STA Stop: 06/12/20 18:53 Last Admin: 06/12/20 19:03 Dose: 2 mg Documented by: [id number] Ondansetron HCl (Ondansetron Inj 2 Mg/Ml 2 Ml Vial) 4 mg IV NOW STA Stop: 06/12/20 14:57 Last Admin: 06/12/20 17:00 Dose: 4 mg Documented by: [id number] Phytonadione (Phytonadione 5 Mg Tab) 2.5 mg PO NOW STA Stop: 06/12/20 17:34 Last Admin: 06/12/20 18:23 Dose: 2.5 mg Documented by: [id number] Discharge Plan Visit Data Chief Complaint: Fall ED Provider: Mike Bernal Discharge Problem: Hematoma of left hip, Anemia, Supratherapeutic INR, Fall, CVA (cerebral vascular accident) Patient Disposition: Admitted As Inpatient Discharge Instructions Interventions: ED Discharge Assessment Last Done: 06/12/20 22:56
[2020-06-12] MEDS ORDERED: MoRPHine SULFATE 4 MG/ML 1 ML CARP\\VIAL IV STA (14:56)
[2020-06-12] MEDS ORDERED: ONDANSETRON INJ 2 MG/ML 2 ML VIAL IV STA (14:56)
--- NOTE | 2020-06-12 15:14 | XRay Report ---
XR tibia fibula LT 2V HISTORY: 80 years-old Female fall acute left lower leg pain status post fall COMPARISON: None TECHNIQUE: 2 views of the left tibia and fibula FINDINGS: Mild to moderate diffuse soft tissue prominence. Osteoarthritis of the knee and ankle. No acute fract ure, dislocation or opaque foreign body. IMPRESSION: Diffuse soft tissue prominence without acute fracture or dislocation. ACT 112: Negative or not required by law. The above report was generated using voice recognition software. It may contain grammatical, syntax o r spelling errors. Electronically signed by: Hal Pratt M.D. 06/12/2020 3:13 PM
--- NOTE | 2020-06-12 15:23 | CT Scan Report ---
CT head/brain wo con CLINICAL HISTORY: 80 years-old Female with fall. Acute head injury status post fall TECHNIQUE: Multiple axial CT images of the head were obtained without contrast. A dose lowering tech nique was utilized adhering to the principles of ALARA. CT DOSE: 537.48 mGy.cm COMPARISON: Head CT 11/18/2017 FINDINGS: No acute intracranial hemorrhage, midline shift, intracranial mass, hydrocephalus, territorial ischem ia or abnormal extra-axial collection. Age-related involutional changes. Extensive patchy white matte r hypodensities are suggestive of chronic microvascular ischemic disease. Cerebral vascular calcifica tions. 5 mm hypodensity of the right lentiform nucleus, image 11 series 2 is new from comparison sugg estive of an age-indeterminate lacunar infarct. The calvarium is intact. Moderate left mastoid effusion. Right mastoid air cells are clear. Prior bi lateral lens replacement. Unremarkable soft tissues. IMPRESSION: 1. No acute intrathoracic abnormality or acute calvarial fracture. 2. 5 mm hypodensity of the right lentiform nucleus is new from 11/18/2017 suggestive of an age-indeter minate lacunar infarct. ACT 112: Negative or not required by law. The above report was generated using voice recognition software. It may contain grammatical, syntax o r spelling errors. Electronically signed by: Hal Pratt M.D. 06/12/2020 3:22 PM
--- NOTE | 2020-06-12 15:25 | CT Scan Report ---
CT hip LT wo con CT DOSE: 505.32 mGy.cm CLINICAL HISTORY: Left hip pain status post trauma. TECHNIQUE: Helical images were acquired in transverse plane. Sagittal coronal reformatted images were acquired. A dose lowering technique was utilized adhering to the principles of ALARA. COMPARISON STUDY: CT scan dated 05/26/2020 FINDINGS: Incidental note is made of a right-sided nephroureteral stent. No fractures of the left hip are visualized. There are mild osteoarthritic changes. There is a subcut aneous soft tissue hematoma within the left upper thigh laterally. This is only partially visualized. This measures 2 cm. There is edema present within the subcutaneous soft tissues of the lateral hip. There is mild trochanteric spurring. IMPRESSION: 1. No left hip fractures identified on CT scanning. 2. Partially visualized subcutaneous soft tissue hematoma within the left upper thigh laterally ACT 112: Negative or not required by law. Electronically signed by: Adam Khoury M.D. 06/12/2020 3:24 PM
[2020-06-12 16:43] LABS: Basophils # (auto) 0.02 K/uL (0-0.2); Basophils % (auto) 0.3 %; Eosinophils # (auto) 0.24 K/uL (0-0.5); Eosinophils % (auto) 3.5 %; Hematocrit (blood only) 24.6 % (37-47); Hemoglobin 7.8 g/dL (12.0-16.0); Immature Granulocytes # (auto) 0.01 K/uL (0.00-0.02); Immature Granulocytes % (auto) 0.1 %; Lymphocytes # (auto) 0.73 K/uL (1.2-3.4); Lymphocytes % (auto) 10.5 %; Mean Corpuscular Hemoglobin 31.5 pg (25-34); Mean Corpuscular Hgb Conc 31.7 g/dL (32-36); Mean Corpuscular Volume 99.2 fL (80-100); Mean Platelet Volume 9.5 fL (7.4-10.4); Monocytes # (auto) 0.89 K/uL (0.11-0.59); Monocytes % (auto) 12.9 %; Neutrophils # (auto) 5.03 K/uL (1.4-6.5); Neutrophils % (auto) 72.7 %; Platelet Count 342 K/uL (130-400); RDW Coefficient of Variation 14.5 % (11.5-14.5); Red Blood Count 2.48 M/uL (4.2-5.4); White Blood Count 6.92 K/uL (4.8-10.8)
[2020-06-12 17:01] LABS: Prothrombin Time 73.4 Seconds (9.0-12.0)
[2020-06-12 17:02] LABS: Ovalocytes 1+
[2020-06-12 17:17] LABS: INR 7.8 (0.9-1.1)
[2020-06-12] MEDS ORDERED: PHYTONADIONE 5 MG TAB PO STA (17:33)
[2020-06-12 17:53] LABS: Appearance Urine Cloudy (Clear); Bacteria Urine Automated Negative (Negative); Bilirubin Urine Negative (Negative); Blood Urine 3+ (Negative); Color Urine Dark Yellow; Glucose Urine UA Negative (Negative); Ketones Urine Negative (Negative); Leukocyte Esterase Urine 3+ (Negative); Nitrite Urine Positive (Negative); Protein Urine 1+ (Negative); RBC Urine Automated >30 /hpf (0-4); Specific Gravity Urine 1.011 (1.000-1.030); Urobilinogen Urine Negative (Negative); WBC Urine Automated >30 /hpf (0-5)
[2020-06-12] MEDS ORDERED: cefTRIAXone SODIUM 1,000 MG/50 ML BAG IV STA (18:09)
[2020-06-12 18:16] LABS: Cast Urine Automated 0 /lpf (0-5)
--- NOTE | 2020-06-12 18:51 | History & Physical Report ---
Date of Service June 12, 2020 Assessment & Plan (1) Hematoma of left thigh: Traumatic due to falling back on her left side out of bed. - Hgb slightly below baseline of 8-10, at 7.8. - Monitor hgb; transfuse for hgb < 7 - Patient consented for blood if needed; in chart - Patient's INR reversed in ED with vitamin K 2.5 mg IV (2) Anemia: Baseline hgb ~8-9. Due to CKD/chronic disease and now due to acute blood loss anemia. - On admission, down to 7.8. - Transfuse for hgb > 7 (3) Supratherapeutic INR: On warfarin for hx of DVT and paroxysmal afib. Reversed in the ED with vitamin K 2.5 mg IV x 1. - Hold warfarin - Closely monitor INR - Given very high bleed risk, will repeat CT head in 12 hours. (4) Syncope: Unclear etiology as the patient cannot give much history. Possibly due to vasovagal vs. seizure vs. arrythmia. - Monitor on telemetry - Monitor for seizure (5) CAD (coronary artery disease): Recent NSTEMI with troponin up to 7.9. Cath on 05/27 with bare metal stent to the LAD. Given recent stent, CANNOT stop DAPT unless cardiology approves. - Continue ASA/Plavix - Continue beta-silvia, statin - Cardiology consulted to weigh in on DAPT. (6) Hypertension: BP is 160/80 in the ED. - Continue beta-silvia, Imdur (7) DM type 2 (diabetes mellitus, type 2): A1c was 6.8% in 05/2020. - Hold home oral meds - Sliding scale insulin (8) Chronic diastolic heart failure: (9) Interstitial lung disease: Noted. - Continue O2 as needed (10) Multiple sclerosis: Follows with Dr. Pierce. - No inpatient needs (11) Seizure disorder: Unclear if loss of consciousness is seizure, as no corroborating witnesses to her fall. - Continue carbamazepine - Monitor for any seizure activity -> Consider neurology consult if so (12) Hypothyroidism: TSH was 4.8 in 05/2020. No signs/symptoms of hypo-/hyperthyroidism. - Continue home Synthroid 100 mcg (13) CKD (chronic kidney disease), stage III: Baseline Cr about 1.3 to 1.5. - Cr is 1.2 today. At baseline. - Monitor (14) Legally blind: Noted (15) Paroxysmal atrial fibrillation: In normal sinus on presentation. - Continue beta-silvia - Monitor INR (16) Right ureteral stone: Multiple recent admissions with UTI. Presently has a right-sided ureteral stent to be removed in 4-6 weeks. Dose of ceftriaxone given in the ED; however, no present symptoms of UTI and the UA looks dirty to me. - Monitor urine culture - Hold abx at this time (17) Essential tremor: Noted on exam today in the ED. - Continue beta-silvia (18) DVT prophylaxis: SCDs DNR/DNI - Confirmed with the patient. History of Present Illness Primary Care Provider: Chris Reis 80yo F w/ hx of MS, HTN, ILD, CAD, and blindness who presents with fall and left thigh hematoma. The patient reports that she had used the restroom and was walking back to her bed. She has a stool that she uses to get into bed because it is high. She reports that "everything disappeared" and she fell backwards onto her left side and struck her head. She does feel she passed out during this episode, though she is not sure how long she was unconscious for. Upon awaking, she had pain in the left hip area. Reports no fevers/chills, chest pain, shortness of breath, abdominal pain, nausea, or vomiting. Allergies Allergy/AdvReac Type Severity Reaction Status Date / Time allopurinol Allergy Unknown COUGH Verified 06/12/20 17:31 blue dye Allergy Unknown BRILLIANT Verified 06/12/20 17:31 BLUE FCF dimethyl fumarate Allergy Unknown UNKNOWN Verified 06/12/20 17:31 Home Medications Home Medications Medication Instructions Recorded Confirmed Type aspirin 81 mg tablet,delayed 81 mg PO DAILY tab 05/25/19 06/12/20 History release biotin 5 mg tablet 5 tab PO DAILY tab 05/25/19 06/12/20 History fentanyl 25 mcg/hr transdermal 1 patch TD .COMPLEX ea 05/25/19 06/12/20 History patch pioglitazone 15 mg tablet 15 mg PO DAILY tab 05/25/19 06/12/20 History buspirone 10 mg tablet 10 mg PO BID PRN 09/03/19 06/12/20 History carbamazepine 200 mg tablet 200 mg PO DAILY tab 09/03/19 06/12/20 History dulaglutide 1.5 mg/0.5 mL 0 mg SQ WEEKLY ml 09/03/19 06/12/20 History subcutaneous pen injector gabapentin 800 mg tablet 800 mg PO TID #270 tab 09/03/19 06/12/20 Rx glipizide 10 mg tablet 10 mg PO BID 09/03/19 06/12/20 History levothyroxine 100 mcg tablet 100 mcg PO DAILY 09/03/19 06/12/20 History lorazepam 0.5 mg tablet 0.5 mg PO DAILY PRN 09/03/19 06/12/20 History metformin 500 mg tablet 500 mg PO QAM 09/03/19 06/12/20 History nitroglycerin 0.4 mg sublingual 0.4 mg SL Q5M PRN 09/03/19 06/12/20 History tablet acetaminophen [Tylenol] 650 mg PO Q6 PRN 09/19/19 06/12/20 History ergocalciferol (vitamin D2) 1,250 mcg PO WK 09/19/19 06/12/20 History [Vitamin D2] folic acid 0.4 mg PO DAILY 09/19/19 06/12/20 History senna 8.6 mg PO BID PRN 09/19/19 06/12/20 History furosemide 40 mg PO DAILY PRN 05/13/20 06/12/20 History isosorbide mononitrate 120 mg PO DAILY 05/13/20 06/12/20 History rosuvastatin 5 mg PO HS 05/13/20 06/12/20 History clopidogrel 75 mg PO QAM #30 tab 05/29/20 06/12/20 Rx amiodarone 200 mg PO DAILY 06/12/20 06/12/20 History diclofenac sodium 2 g TOPICAL QID PRN 06/12/20 06/12/20 History potassium chloride [Klor-Con M10] 10 meq PO DAILY PRN 06/12/20 06/12/20 History propranolol 60 mg PO QAM 06/12/20 06/12/20 History warfarin 4 mg PO QPM 06/12/20 06/12/20 History Past Med/Surg History Medical History CAD (coronary artery disease) July 2009 -NSTEMI 2009-2 KYLER to circumflex obtuse marginal, 1 KYLER to RCA Carotid artery stenosis CKD (chronic kidney disease), stage III DM type 2 (diabetes mellitus, type 2) Dyslipidemia History of DVT (deep vein thrombosis) Hypertension Hypothyroidism Interstitial lung disease Legally blind Multiple sclerosis Seizure disorder Surgical History History of hysterectomy History of tonsillectomy Hx of cholecystectomy Family History Mother Heart disease Social History Smoking Status: Never smoker Hx Alcohol Use: No Hx Substance Use: No Preferred Language: Malagasy Communication Ability: Effective Cupola Charger Required: No Beliefs That Will Affect Care: None Current Living Situation: Spouse and Family Feels Safe at Home: Yes Assistive Devices: Walker Review of Systems Review of Systems: All systems reviewed & are unremarkable except as noted in HPI & below Physical Exam Constitutional: WD/WN, vitals as above Eyes: EOM intact bilaterally; no conjunctival abnormality ENMT: external ear and nose normal, oropharynx normal Neck: trachea midline, no thyromegaly normal visual inspection Respiratory: normal respiratory effort, lungs clear to auscultation no respiratory distress Cardiovascular: RRR, no murmur, no edema Gastrointestinal (Abdomen): Inspection/Auscultation: abdomen normal to inspection; abdomen not distended Musculoskeletal: no cyanosis or clubbing, extremities motor strength 5/5 Skin: no rashes, warm and dry Neurologic: moves all extremities and awake Psychiatric: Orientation: alert, oriented to person and cooperative Results & Data Results & Data ([facility]) Vital Signs (Past 12 Hours) Vital Signs Temp Pulse Pulse Resp BP BP Pulse Ox 06/12/20 18:00 55 L 20 159/78 H 94 06/12/20 17:00 54 L 57 L 18 196/113 H 100 06/12/20 14:10 37.2 C 54 L 18 176/59 H 100 PG Care Time/CCT Total # of Minutes Spent Total Time Spent with Patient: Total time spent is greater than 50% in coordination of care (as documented) at patient's floor/unit and/or counseling patient: Coding Level of Care Code 83753 Initial Inpt Care Lvl 3 Diagnoses Hematoma of left thigh S70.12XA Anemia D64.9 Anemia type: unspecified type Supratherapeutic INR R79.1 Syncope R55 Syncope type: unspecified CAD (coronary artery disease) I25.119 Coronary Disease-Associated Artery/Lesion type: [place] artery [place] vs. transplanted heart: [place] heart Associated angina: with unspecified angina Hypertension I10 Hypertension type: essential hypertension DM type 2 (diabetes mellitus, type 2) E11.69 Diabetes mellitus watermelon harvesting supervisor insulin use: without senior living use Diabetes mellitus complication status: with other specified complication Chronic diastolic heart failure I50.32 Interstitial lung disease J84.9 Multiple sclerosis G35 Seizure disorder G40.909 Hypothyroidism E03.9 Hypothyroidism type: acquired CKD (chronic kidney disease), stage III N18.3 Legally blind H54.8 Paroxysmal atrial fibrillation I48.0 Right ureteral stone N20.1 Essential tremor G25.0 DVT prophylaxis Z29.9 (1) CAD (coronary artery disease) Coronary Disease-Associated Artery/Lesion type: [place] artery [place] vs. transplanted heart: [place] heart Associated angina: with unspecified angina Qualified Code(s): I25.119 - Atherosclerotic heart disease of [place] coronary artery with unspecified angina pectoris (2) Hypertension Hypertension type: essential hypertension Qualified Code(s): I10 - Essential (primary) hypertension (3) DM type 2 (diabetes mellitus, type 2) Diabetes mellitus watermelon harvesting supervisor insulin use: without senior living use Diabetes mellitus complication status: with other specified complication Qualified Code(s): E11.69 - Type 2 diabetes mellitus with other specified complication (4) Hypothyroidism Hypothyroidism type: acquired Qualified Code(s): E03.9 - Hypothyroidism, unspecified (5) Anemia Anemia type: unspecified type Qualified Code(s): D64.9 - Anemia, unspecified (6) Syncope Syncope type: unspecified Qualified Code(s): R55 - Syncope and collapse
[2020-06-12] MEDS ORDERED: MoRPHine SULFATE 2 MG/ML CARP IV STA (18:52)
[2020-06-12] MEDS ORDERED: GLUCOSE 40% GEL 15 GM TUBE PO PRN (23:35)
[2020-06-12] MEDS ORDERED: MoRPHine SULFATE 4 MG/ML 1 ML CARP\\VIAL IV PRN (23:35)
[2020-06-12] MEDS ORDERED: busPIRone 5 MG TAB PO PRN (23:35)
[2020-06-12] MEDS ORDERED: GLUCAGON FOR INJ 1 MG VIAL SQ PRN (23:35)
[2020-06-12] MEDS ORDERED: CARBOHYDRATES FOR HYPOGLYCEMIA PO PRN (23:35)
[2020-06-12] MEDS ORDERED: DEXTROSE 50% 50 ML SYRINGE IV PRN (23:35)
[2020-06-12] MEDS ORDERED: LORazepam 0.5 MG TAB PO PRN (23:35)
[2020-06-12] MEDS ORDERED: GLUCOSE 10 TABS/TUBE PO PRN (23:35)
[2020-06-13] MEDS: INSULIN ASPART 100 UNITS/ML 3 ML PEN SC SCH ×5 (01:05→20:49)
[2020-06-13] MEDS: ROSUVASTATIN CALCIUM 5 MG TAB PO SCH ×2 (01:05→20:46)
[2020-06-13] MEDS: GABAPENTIN 800 MG TAB PO SCH ×4 (01:05→20:47)
[2020-06-13 01:27] LABS: Hematocrit (blood only) 26.4 % (37-47); Hemoglobin 8.2 g/dL (12.0-16.0)
[2020-06-13] MEDS ORDERED: PNEUMOCOCCAL ADMINISTRATION CHARGE ONE (03:13)
[2020-06-13] MEDS ORDERED: PNEUMOCOCCAL POLYSACCHARIDES 25 MCG/0.5 ML VIAL/SYR IM ONE (03:13)
[2020-06-13] MEDS ORDERED: fentaNYL 25 MCG/HR TDSY TD SCH (06:00)
[2020-06-13] MEDS: LEVOTHYROXINE SODIUM 100 MCG TABLET PO SCH (06:32)
--- NOTE | 2020-06-13 08:12 | CT Scan Report ---
CT head/brain wo con CLINICAL HISTORY: Head trauma. COMPARISON STUDY: 06/12/2020 TECHNIQUE: Axial CT of the brain is performed from the vertex to the skull base. IV contrast was not administered for this examination. A dose lowering technique was utilized adhering to the principles of ALARA. CT DOSE: 795.47 mGy.cm FINDINGS: No intra or extra-axial mass lesions are visualized. There is no CT evidence of acute cortical infarc tion. There is no evidence of midline shift. There is no acute hemorrhage. No calvarial fractures ar e visualized. There are moderate white matter hypodensities likely on a small vessel basis. There is basal ganglial lacunar infarcts similar to the prior study. There is no evidence of pathologic ventricular dilatation. There is no evidence of acute sinusitis IMPRESSION: No acute intracranial findings ACT 112: Negative or not required by law. Electronically signed by: Adam Khoury M.D. 06/13/2020 8:10 AM
[2020-06-13 08:27] LABS: INR 4.6 (0.9-1.1); Prothrombin Time 44.5 Seconds (9.0-12.0)
[2020-06-13 08:38] LABS: BUN Creatinine Ratio 10.2 (10-20); Calcium 9.4 mg/dl (8.5-10.1); Creatinine Clr Calc Pharmacy 34.5 ml/min; Est GFR (African American) 44.8; Est GFR (Non-African American) 38.6; Magnesium 1.7 mg/dl (1.8-2.4)
[2020-06-13] MEDS: CHECK fentaNYL PATCH PLACEMENT SCH ×2 (08:45→16:59)
[2020-06-13] MEDS: carBAMazepine 200 MG TABLET PO SCH (08:46)
[2020-06-13] MEDS: ASPIRIN 81 MG ECTAB PO SCH (08:46)
[2020-06-13] MEDS: CLOPIDOGREL BISULFATE 75 MG TAB PO SCH (08:46)
[2020-06-13] MEDS: METOPROLOL SUCC 25MG EXT REL TAB PO SCH (08:47)
[2020-06-13] MEDS: AMIODARONE 200 MG TAB PO SCH (08:47)
[2020-06-13] MEDS: ISOSORBIDE MONO EXTENDED REL 60 MG TABCR PO SCH (08:48)
[2020-06-13 10:06] LABS: Hematocrit (blood only) 23.8 % (37-47); Hemoglobin 7.6 g/dL (12.0-16.0); Mean Corpuscular Hemoglobin 31.7 pg (25-34); Mean Corpuscular Hgb Conc 31.9 g/dL (32-36); Mean Corpuscular Volume 99.2 fL (80-100); Mean Platelet Volume 9.8 fL (7.4-10.4); Platelet Count 351 K/uL (130-400); RDW Coefficient of Variation 14.3 % (11.5-14.5); RDW Standard Deviation 51.5 fL (36.4-46.3); White Blood Count 7.46 K/uL (4.8-10.8)
--- NOTE | 2020-06-13 11:58 | Cardiology Consultation ---
Date of Consultation June 13, 2020 Assessment & Plan (1) Hematoma of left hip: (2) Anemia: (3) Supratherapeutic INR: (4) Fall: (5) Paroxysmal atrial fibrillation: (6) Right ureteral stone: (7) NSTEMI (non-ST elevated myocardial infarction): (8) Stented coronary artery: I agree with holding the patient's warfarin until we establish hemostasis, especially in light of her anemia. I would continue the dual antiplatelet therapy as we are in a very critical time in regard to her stent. It is a bare- metal stent and therefore the guideline recommendation is 4 to 6 weeks of antiplatelet therapy prior to proceeding to a surgery that will require stopping these medications. I believe that was the plan in regard to her renal calculi when she was discharged following her stent placement. She is currently stable hemodynamically. History of Present Illness Attending Physician: Jose Wood History of Present Illness This is a 80-year-old female who usually follows with Perez Borja through our clinic. She has had a complex recent history with a ureteral calculi requiring a surgical intervention with stent placement. She was experiencing unstable cardiac symptoms around that time and underwent a cardiac catheterization and underwent a bare-metal stent placement in the mid LAD. This procedure was completed at the end of May and it is only been approximately 2 weeks. The patient was discharged on Coumadin, Plavix and aspirin. The Coumadin is for paroxysmal atrial fibrillation with a high Rayray Vas score and a history of previous DVTs. The patient was getting into bed and fell injuring her left hip. She has a large orange size hematoma on the lateral portion of her left proximal thigh. She had no fractures just soft tissue injuries. She has no ongoing cardiac complaints. Her INR was 4.3 on admission and she is anemic. Her warfarin has been held. Past medical history: 1.ASCVD. Non ST segment elevation [place] in July 2009. Cardiac catheterization at [facility] in 2009 receiving a total of 3 drug eluting stents including 2 stents to the circumflex obtuse marginal territory in 1 drug eluting stent to the right coronary artery. 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 . 9.Multiple sclerosis 10.History of seizure disorder. 11.Hypothyroidism 12. Chronic diastolic heart failure compensated with preserved ejection fraction 13. Paroxysmal atrial fibrillation with acute exacerbation during hospitalization 14. Obstructive uropathy with recent urosepsis treated with ureteral stent. Allergies Allergy/AdvReac Type Severity Reaction Status Date / Time allopurinol Allergy Unknown COUGH Verified 06/12/20 17:31 blue dye Allergy Unknown BRILLIANT Verified 06/12/20 17:31 BLUE FCF dimethyl fumarate Allergy Unknown UNKNOWN Verified 06/12/20 17:31 Home Medications Home Medications Medication Instructions Recorded Confirmed Type aspirin 81 mg tablet,delayed 81 mg PO DAILY tab 05/25/19 06/12/20 History release biotin 5 mg tablet 5 tab PO DAILY tab 05/25/19 06/12/20 History fentanyl 25 mcg/hr transdermal 1 patch TD .COMPLEX ea 05/25/19 06/12/20 History patch pioglitazone 15 mg tablet 15 mg PO DAILY tab 05/25/19 06/12/20 History buspirone 10 mg tablet 10 mg PO BID PRN 09/03/19 06/12/20 History carbamazepine 200 mg tablet 200 mg PO DAILY tab 09/03/19 06/12/20 History dulaglutide 1.5 mg/0.5 mL 0 mg SQ WEEKLY ml 09/03/19 06/12/20 History subcutaneous pen injector gabapentin 800 mg tablet 800 mg PO TID #270 tab 09/03/19 06/12/20 Rx glipizide 10 mg tablet 10 mg PO BID 09/03/19 06/12/20 History levothyroxine 100 mcg tablet 100 mcg PO DAILY 09/03/19 06/12/20 History lorazepam 0.5 mg tablet 0.5 mg PO DAILY PRN 09/03/19 06/12/20 History metformin 500 mg tablet 500 mg PO QAM 09/03/19 06/12/20 History nitroglycerin 0.4 mg sublingual 0.4 mg SL Q5M PRN 09/03/19 06/12/20 History tablet acetaminophen [Tylenol] 650 mg PO Q6 PRN 09/19/19 06/12/20 History ergocalciferol (vitamin D2) 1,250 mcg PO WK 09/19/19 06/12/20 History [Vitamin D2] folic acid 0.4 mg PO DAILY 09/19/19 06/12/20 History senna 8.6 mg PO BID PRN 09/19/19 06/12/20 History furosemide 40 mg PO DAILY PRN 05/13/20 06/12/20 History isosorbide mononitrate 120 mg PO DAILY 05/13/20 06/12/20 History rosuvastatin 5 mg PO HS 05/13/20 06/12/20 History clopidogrel 75 mg PO QAM #30 tab 05/29/20 06/12/20 Rx amiodarone 200 mg PO DAILY 06/12/20 06/12/20 History diclofenac sodium 2 g TOPICAL QID PRN 06/12/20 06/12/20 History potassium chloride [Klor-Con M10] 10 meq PO DAILY PRN 06/12/20 06/12/20 History propranolol 60 mg PO QAM 06/12/20 06/12/20 History warfarin 4 mg PO QPM 06/12/20 06/12/20 History Patient History Medical History CAD (coronary artery disease) July 2009 -NSTEMI 2009-2 KYLER to circumflex obtuse marginal, 1 KYLER to RCA Carotid artery stenosis CKD (chronic kidney disease), stage III DM type 2 (diabetes mellitus, type 2) Dyslipidemia History of DVT (deep vein thrombosis) Hypertension Hypothyroidism Interstitial lung disease Legally blind Multiple sclerosis Seizure disorder Surgical History History of hysterectomy History of tonsillectomy Hx of cholecystectomy Family History Mother Heart disease Social History Smoking Status: Never smoker Hx Alcohol Use: No Hx Substance Use: No Preferred Language: [place] Communication Ability: Effective Automatic Furnace Operator Required: No Beliefs That Will Affect Care: None marital status: Current Living Situation: Spouse How many Children do You have: 4 Feels Safe at Home: No Is there a partner from a previous relationship who is making you feel unsafe now?: No Assistive Devices: Oxygen - Continuous, Walker and Wheelchair Review of Systems Review of Systems: All systems reviewed & are unremarkable except as noted in HPI & below Nothing additional to add. Physical Exam Physical Exam: General: no acute distress and stated age Head: normocephalic, no masses, lesions, tenderness or abnormalities Eyes: conjunctiva are pink and non-injected, sclera clear Neck: supple, no adenopathy, no bruits, normal jugular venous pulse, no hepatojugular reflux Chest: normal shape and normal respiratory effort Lungs: clear to auscultation and percussion Cardiac Exam: - regular rate & rhythm, no murmurs gallops or rubs - normal S1, normal S2 Pulses: 2(+) throughout Abdomen: abdomen soft, non-tender, no abnormal masses and no hepatosplenomegaly Musculoskeletal: no gait disturbance, no joint inflammation, no deforming arthritis Extremities: Large orange size hematoma on the lateral left hip. Neuro: grossly normal exam Results & Data ([facility]) Vital Signs (Past 12 Hours) Vital Signs Temp Pulse Pulse Resp BP Pulse Ox 06/13/20 08:44 37.0 C 59 L 20 171/72 H 95 06/13/20 07:00 61 06/13/20 03:15 37.6 C H 63 18 157/69 H 95 Laboratory Results Laboratory Results - last 24 hr 06/12/20 06/12/20 06/12/20 16:30 16:30 16:46 WBC 6.92 RBC 2.48 L Hgb 7.8 L Hct 24.6 L MCV 99.2 MCH 31.5 MCHC 31.7 L RDW Std Deviation 52.0 H RDW Coeff of Gillian 14.5 Plt Count 342 MPV 9.5 Immature Gran % (Auto) 0.1 Neut % (Auto) 72.7 Lymph % (Auto) 10.5 [place] % (Auto) 12.9 Eos % (Auto) 3.5 Baso % (Auto) 0.3 Neut # (Auto) 5.03 Lymph # (Auto) 0.73 L [place] # (Auto) 0.89 H Eos # (Auto) 0.24 Baso # (Auto) 0.02 Immature Gran # (Auto) 0.01 Ovalocytes 1+ PT 73.4 H INR 7.8 H* Sodium Potassium Chloride Carbon Dioxide Anion Gap BUN Creatinine Est Cr Clr Drug Dosing Est GFR ( Amer) Est GFR (Non-Af Amer) BUN/Creatinine Ratio Glucose POC Glucose Calcium Magnesium Urine Color Dark Yellow Urine Appearance Cloudy A Urine pH 6.0 Ur Specific [place] 1.011 Urine Protein 1+ H Urine Glucose (UA) Negative Urine Ketones Negative Urine Blood 3+ H Urine Nitrite Positive A Urine Bilirubin Negative Urine Urobilinogen Negative Ur Leukocyte Esterase 3+ H Urine WBC (Auto) >30 H Urine RBC (Auto) >30 H U Hyaline Cast (Auto) 0 U Epithel Cells (Auto) 5-10 H Urine Bacteria (Auto) Negative Urine Yeast Budding A 06/13/20 06/13/20 06/13/20 00:22 01:04 07:07 WBC 7.46 RBC 2.40 L Hgb 8.2 L 7.6 L Hct 26.4 L 23.8 L MCV 99.2 MCH 31.7 MCHC 31.9 L RDW Std Deviation 51.5 H RDW Coeff of Gillian 14.3 Plt Count 351 MPV 9.8 Immature Gran % (Auto) Neut % (Auto) Lymph % (Auto) [place] % (Auto) Eos % (Auto) Baso % (Auto) Neut # (Auto) Lymph # (Auto) [place] # (Auto) Eos # (Auto) Baso # (Auto) Immature Gran # (Auto) Ovalocytes PT INR Sodium Potassium Chloride Carbon Dioxide Anion Gap BUN Creatinine Est Cr Clr Drug Dosing Est GFR ( Amer) Est GFR (Non-Af Amer) BUN/Creatinine Ratio Glucose POC Glucose 105 H Calcium Magnesium Urine Color Urine Appearance Urine pH Ur Specific [place] Urine Protein Urine Glucose (UA) Urine Ketones Urine Blood Urine Nitrite Urine Bilirubin Urine Urobilinogen Ur Leukocyte Esterase Urine WBC (Auto) Urine RBC (Auto) U Hyaline Cast (Auto) U Epithel Cells (Auto) Urine Bacteria (Auto) Urine Yeast 06/13/20 06/13/20 06/13/20 07:07 07:07 12:18 WBC RBC Hgb Hct MCV MCH MCHC RDW Std Deviation RDW Coeff of Gillian Plt Count MPV Immature Gran % (Auto) Neut % (Auto) Lymph % (Auto) [place] % (Auto) Eos % (Auto) Baso % (Auto) Neut # (Auto) Lymph # (Auto) [place] # (Auto) Eos # (Auto) Baso # (Auto) Immature Gran # (Auto) Ovalocytes PT 44.5 H INR 4.6 H Sodium 136 Potassium 5.0 Chloride 102 Carbon Dioxide 30 Anion Gap 4.0 BUN 13 Creatinine 1.31 H Est Cr Clr Drug Dosing 34.5 Est GFR ( Amer) 44.8 Est GFR (Non-Af Amer) 38.6 BUN/Creatinine Ratio 10.2 Glucose 145 H POC Glucose 183 H Calcium 9.4 Magnesium 1.7 L Urine Color Urine Appearance Urine pH Ur Specific [place] Urine Protein Urine Glucose (UA) Urine Ketones Urine Blood Urine Nitrite Urine Bilirubin Urine Urobilinogen Ur Leukocyte Esterase Urine WBC (Auto) Urine RBC (Auto) U Hyaline Cast (Auto) U Epithel Cells (Auto) Urine Bacteria (Auto) Urine Yeast Medications Administered Current Inpatient Medications Acetaminophen (Acetaminophen 325 Mg Tab) 650 mg PO Q4H PRN PRN Reason: Pain Stop: 07/12/20 23:34 Amiodarone HCl (Amiodarone 200 Mg Tab) 200 mg PO DAILY [facility] Stop: 07/13/20 08:59 Last Admin: 06/13/20 08:47 Dose: 200 mg Documented by: Aspirin (Aspirin 81 Mg Ectab) 81 mg PO DAILY [facility] Stop: 07/13/20 08:59 Last Admin: 06/13/20 08:46 Dose: 81 mg Documented by: Buspirone HCl (Buspirone 5 Mg Tab) 10 mg PO BID PRN PRN Reason: Anxiety Stop: 07/12/20 23:34 Carbamazepine (Carbamazepine 200 Mg Tablet) 200 mg PO DAILY [facility] Stop: 07/13/20 08:59 Last Admin: 06/13/20 08:46 Dose: 200 mg Documented by: Clopidogrel Bisulfate (Clopidogrel Bisulfate 75 Mg Tab) 75 mg PO QAM [facility] Stop: 07/13/20 08:59 Last Admin: 06/13/20 08:46 Dose: 75 mg Documented by: Dextrose (Dextrose 50% 50 Ml Syringe) 25 - 50 ml IV UD PRN; Protocol PRN Reason: Hypoglycemia Protocol Stop: 07/12/20 23:34 Fentanyl (Fentanyl 25 Mcg/Hr Tdsy) 25 mcg TD Q72H [facility] Stop: 06/27/20 05:59 Last Admin: 06/13/20 06:32 Dose: 25 mcg Documented by: Gabapentin (Gabapentin 800 Mg Tab) 800 mg PO TID [facility] Stop: 07/12/20 23:34 Last Admin: 06/13/20 08:49 Dose: 800 mg Documented by: Glucagon (Glucagon For Inj 1 Mg Vial) 1 mg SQ UD PRN; Protocol PRN Reason: Hypoglycemia Protocol Stop: 07/12/20 23:34 Glucose (Glucose 10 Tabs/Tube) 4 - 8 tabs PO UD PRN; Protocol PRN Reason: Hypoglycemia Protocol Stop: 07/12/20 23:34 Glucose (Glucose 40% Gel 15 Gm Tube) 15 - 30 gm PO UD PRN; Protocol PRN Reason: Hypoglycemia Protocol Stop: 07/12/20 23:34 Insulin Aspart (Insulin Aspart 100 Units/Ml 3 Ml Pen) 0 units SC ACHS NATHANIEL Stop: 07/12/20 23:34 Last Admin: 06/13/20 12:19 Dose: 3 units Documented by: Isosorbide Mononitrate (Isosorbide [place] Extended Rel 60 Mg Tabcr) 120 mg PO DAILY [facility]ATH[facility]EL Stop: 07/13/20 08:59 Last Admin: 06/13/20 08:48 Dose: 120 mg Documented by: Levothyroxine Sodium (Levothyroxine Sodium 100 Mcg Tablet) 100 mcg PO DAILYBB NATHANIEL Stop: 07/13/20 06:29 Last Admin: 06/13/20 06:32 Dose: 100 mcg Documented by: Lorazepam (Lorazepam 0.5 Mg Tab) 0.5 mg PO DAILY PRN PRN Reason: Anxiety Stop: 07/12/20 23:34 Metoprolol Succinate (Metoprolol Succ 25mg Ext Rel Tab) 25 mg PO QAM [facility] Stop: 07/13/20 08:59 Last Admin: 06/13/20 08:47 Dose: 25 mg Documented by: Miscellaneous (Fentanyl Patch Remove & Waste) 1 ea N/A Q72H [facility] Stop: 07/13/20 05:58 Last Admin: 06/13/20 06:41 Dose: 1 ea Documented by: Miscellaneous (Check Fentanyl Patch Placement) 1 ea N/A QS [facility] Stop: 07/13/20 07:59 Last Admin: 06/13/20 08:45 Dose: 1 ea Documented by: Miscellaneous (Carbohydrates For Hypoglycemia ) 15 - 30 gm PO UD PRN PRN Reason: Hypoglycemia Protocol Stop: 07/12/20 23:34 Morphine Sulfate (Morphine Sulfate 4 Mg/Ml 1 Ml Carp\Vial) 4 mg IV Q4H PRN PRN Reason: Pain Stop: 06/26/20 23:34 Ondansetron HCl (Ondansetron Inj 2 Mg/Ml 2 Ml Vial) 4 mg IV Q4H PRN PRN Reason: Nausea Stop: 07/12/20 23:34 Rosuvastatin Calcium (Rosuvastatin Calcium 5 Mg Tab) 5 mg PO HS NATHANIEL Stop: 07/12/20 23:34 Last Admin: 06/13/20 01:05 Dose: 5 mg Documented by:
[2020-06-13] MEDS ORDERED: PHYTONADIONE 5 MG TAB PO STA (19:02)
[2020-06-13] MEDS: SENNA 8.6 MG TAB PO SCH (20:46)
--- NOTE | 2020-06-13 23:34 | Hospitalist Progress Note ---
Date of Service June 13, 2020 Assessment & Plan (1) Hematoma of left thigh: Traumatic due to falling back on her left side out of bed. - Hgb slightly below baseline of 8-10, at 7.8. - Monitor hgb; transfuse for hgb < 7 - Patient consented for blood if needed; in chart - Patient's INR reversed in ED with vitamin K 2.5 mg IV (2) Anemia: Baseline hgb ~8-9. Due to CKD/chronic disease and now due to acute blood loss anemia. - On admission, down to 7.8. - Transfuse for hgb > 7 (3) Supratherapeutic INR: On warfarin for hx of DVT and paroxysmal afib. Reversed in the ED with vitamin K 2.5 mg IV x 1. - Hold warfarin - Closely monitor INR - Given very high bleed risk, CT head: was negative. (4) Syncope: Unclear etiology as the patient cannot give much history. Possibly due to vasovagal vs. seizure vs. arrythmia. - Monitor on telemetry - Monitor for seizure (5) CAD (coronary artery disease): Recent NSTEMI with troponin up to 7.9. Cath on 05/27 with bare metal stent to the LAD. Given recent stent, CANNOT stop DAPT unless cardiology approves. - Continue ASA/Plavix - Continue beta-silvia, statin - Cardiology consulted to weigh in on DAPT. (6) Hypertension: BP is 160/80 in the ED. - Continue beta-silvia, Imdur (7) DM type 2 (diabetes mellitus, type 2): A1c was 6.8% in 05/2020. - Hold home oral meds - Sliding scale insulin (8) Chronic diastolic heart failure: (9) Interstitial lung disease: Noted. - Continue O2 as needed (10) Multiple sclerosis: Follows with Dr. Pierce. - No inpatient needs (11) Seizure disorder: Unclear if loss of consciousness is seizure, as no corroborating witnesses to her fall. - Continue carbamazepine - Monitor for any seizure activity (12) Hypothyroidism: TSH was 4.8 in 05/2020. No signs/symptoms of hypo-/hyperthyroidism. - Continue home Synthroid 100 mcg (13) CKD (chronic kidney disease), stage III: Baseline Cr about 1.3 to 1.5. - Cr is 1.2 today. At baseline. - Monitor (14) Legally blind: Noted (15) Paroxysmal atrial fibrillation: In normal sinus on presentation. - Continue beta-silvia - Monitor INR (16) Right ureteral stone: Multiple recent admissions with UTI. Presently has a right-sided ureteral stent to be removed in 4-6 weeks. Dose of ceftriaxone given in the ED; however, no present symptoms of UTI and the UA looks dirty to me. - Monitor urine culture - Hold abx at this time (17) Essential tremor: Noted on exam today in the ED. - Continue beta-silvia (18) DVT prophylaxis: SCDs DNR/DNI - Confirmed with the patient. Admission and Anticipated Discharge Date Admission Date: June 12, 2020 Subjective 80 yo female reports no new symptoms. Review of Systems Review of Systems: All systems reviewed & are unremarkable except as noted in HPI & below Physical Exam Physical Exam: Constitutional: WD/WN, vitals as above Eyes: EOM intact bilaterally; no conjunctival abnormality ENMT: external ear and nose normal, oropharynx normal Neck: trachea midline, no thyromegaly normal visual inspection Respiratory: normal respiratory effort, lungs clear to auscultation no respiratory distress Cardiovascular: RRR, no murmur, no edema Gastrointestinal (Abdomen): Inspection/Auscultation: abdomen normal to inspection; abdomen not distended Musculoskeletal: \no cyanosis or clubbing, extremities motor strength 5/5 Skin: no rashes, warm and dry Neurologic: moves all extremities and awake Psychiatric: Orientation: alert, oriented to person and cooperative Results & Data Results & Data ([facility]) Vital Signs (Past 12 Hours) Vital Signs Temp Pulse Pulse Resp BP BP Pulse Ox 06/13/20 20:18 36.9 C 55 L 18 152/79 H 99 06/13/20 15:39 36.7 C 54 L 20 122/70 95 06/13/20 15:00 56 L 06/13/20 12:05 36.8 C 54 L 20 150/65 H 96 PG Care Time/CCT Total # of Minutes Spent Total Time Spent with Patient: Total time spent is greater than 50% in coordination of care (as documented) at patient's floor/unit and/or counseling patient: Coding Level of Care Code 47667 Subseq Hosp Care Lvl 3 Diagnoses Hematoma of left thigh S70.12XA Anemia D64.9 Anemia type: unspecified type Supratherapeutic INR R79.1 Syncope R55 Syncope type: unspecified CAD (coronary artery disease) I25.119 Associated angina: with unspecified angina Coronary Disease-Associated Artery/Lesion type: [place] artery [place] vs. transplanted heart: [place] heart Hypertension I10 Hypertension type: essential hypertension DM type 2 (diabetes mellitus, type 2) E11.69 Diabetes mellitus complication status: with other specified complication Diabetes mellitus exterminator helper insulin use: without exterminator helper use Chronic diastolic heart failure I50.32 Interstitial lung disease J84.9 Multiple sclerosis G35 Seizure disorder G40.909 Hypothyroidism E03.9 Hypothyroidism type: acquired CKD (chronic kidney disease), stage III N18.3 Legally blind H54.8 Paroxysmal atrial fibrillation I48.0 Right ureteral stone N20.1 Essential tremor G25.0 DVT prophylaxis Z29.9 Time Spent (min) 35 (1) DM type 2 (diabetes mellitus, type 2) Diabetes mellitus complication status: with other specified complication Diabetes mellitus exterminator helper insulin use: without exterminator helper use Qualified Code(s): E11.69 - Type 2 diabetes mellitus with other specified complication (2) CAD (coronary artery disease) Associated angina: with unspecified angina Coronary Disease-Associated Artery/Lesion type: [place] artery [place] vs. transplanted heart: [place] heart Qualified Code(s): I25.119 - Atherosclerotic heart disease of [place] coronary artery with unspecified angina pectoris (3) Anemia Anemia type: unspecified type Qualified Code(s): D64.9 - Anemia, unspecified (4) Hypothyroidism Hypothyroidism type: acquired Qualified Code(s): E03.9 - Hypothyroidism, unspecified (5) Syncope Syncope type: unspecified Qualified Code(s): R55 - Syncope and collapse (6) Hypertension Hypertension type: essential hypertension Qualified Code(s): I10 - Essential (primary) hypertension
[2020-06-14] MEDS: CHECK fentaNYL PATCH PLACEMENT SCH ×3 (00:05→16:11)
[2020-06-14] MEDS: LEVOTHYROXINE SODIUM 100 MCG TABLET PO SCH (06:04)
[2020-06-14] MEDS: carBAMazepine 200 MG TABLET PO SCH (08:38)
[2020-06-14] MEDS: METOPROLOL SUCC 25MG EXT REL TAB PO SCH (08:38)
[2020-06-14] MEDS: GABAPENTIN 800 MG TAB PO SCH ×3 (08:38→20:39)
[2020-06-14] MEDS: ISOSORBIDE MONO EXTENDED REL 60 MG TABCR PO SCH (08:38)
[2020-06-14] MEDS: SENNA 8.6 MG TAB PO SCH ×2 (08:38→20:39)
[2020-06-14] MEDS: CLOPIDOGREL BISULFATE 75 MG TAB PO SCH (08:38)
[2020-06-14] MEDS: AMIODARONE 200 MG TAB PO SCH (08:39)
[2020-06-14] MEDS: INSULIN ASPART 100 UNITS/ML 3 ML PEN SC SCH ×4 (08:39→20:39)
[2020-06-14] MEDS: ASPIRIN 81 MG ECTAB PO SCH (08:39)
[2020-06-14 10:09] LABS: Hematocrit (blood only) 25.4 % (37-47); Hemoglobin 8.1 g/dL (12.0-16.0); Mean Corpuscular Hemoglobin 31.4 pg (25-34); Mean Corpuscular Hgb Conc 31.9 g/dL (32-36); Mean Corpuscular Volume 98.4 fL (80-100); Mean Platelet Volume 9.1 fL (7.4-10.4); Platelet Count 310 K/uL (130-400); RDW Coefficient of Variation 14.4 % (11.5-14.5); RDW Standard Deviation 51.4 fL (36.4-46.3); Red Blood Count 2.58 M/uL (4.2-5.4); White Blood Count 7.32 K/uL (4.8-10.8)
[2020-06-14 10:20] LABS: INR 1.6 (0.9-1.1); Prothrombin Time 16.7 Seconds (9.0-12.0)
[2020-06-14 10:43] LABS: BUN Creatinine Ratio 9.7 (10-20); Calcium 9.3 mg/dl (8.5-10.1); Creatinine Clr Calc Pharmacy 30.4 ml/min; Est GFR (African American) 39.3; Est GFR (Non-African American) 33.9; Potassium 4.6 mmol/L (3.5-5.1)
--- NOTE | 2020-06-14 12:04 | Cardiology Progress Note ---
Date of Service June 14, 2020 Assessment & Plan (1) Hematoma of left thigh: Patient on Coumadin due to history of atrial fibrillation and DVT. Coumadin currently on hold, INR reversed. Anemia has been an ongoing issue dating back to previous hospital stays. Hemoglobin relatively stable today. (2) Stented coronary artery: Continue dual antiplatelet therapy given recent intracoronary stent. Admission and Anticipated Discharge Date Admission Date: June 12, 2020 Subjective Patient seen in cardiology follow-up with Dr. Croft having performed initial consultation yesterday. She complains of ongoing left posterior thigh, buttock pain at the site of her hematoma. Physical Exam Physical Exam: Temp Pulse Resp BP Pulse Ox 37.1 C 60 20 133/64 97 06/14/20 11:47 06/14/20 11:47 06/14/20 11:47 06/14/20 11:47 06/14/20 11:47 Constitutional: WD/WN, vitals as above Respiratory: normal respiratory effort, lungs clear to auscultation Cardiovascular: RRR, no murmur, no edema Gastrointestinal (Abdomen): normal bowel sounds, soft, nontender, no hepatosplenomegaly Musculoskeletal: Left posterior thigh ecchymosis, hematoma Results & Data ([facility]) Vital Signs (Past 12 Hours) Vital Signs Temp Pulse Pulse Resp BP Pulse Ox 06/14/20 11:47 37.1 C 60 20 133/64 97 06/14/20 07:40 36.9 C 59 L 20 163/103 H 97 06/14/20 03:36 36.7 C 56 L 18 185/66 H 98 06/14/20 00:37 148/79 H 06/14/20 00:00 55 L Laboratory Results INR today 1.6 Hemoglobin 8.1, increased compared to 7.6 yesterday. Creatinine 1.4, compared to 1.31 yesterday.
[2020-06-14] MEDS ORDERED: Nursing to Pharmacy Communication SCH (16:15)
[2020-06-14] MEDS: fentaNYL 25 MCG/HR TDSY TD SCH (17:15)
[2020-06-14 18:06] LABS: Appearance Urine Turbid (Clear); Bacteria Urine Automated Negative (Negative); Bilirubin Urine Negative (Negative); Blood Urine 3+ (Negative); Color Urine Dark Yellow; Epithelial Cell Urine Auto >30 /lpf (0-5); Glucose Urine UA Negative (Negative); Ketones Urine Trace (Negative); Leukocyte Esterase Urine 3+ (Negative); Nitrite Urine Negative (Negative); Protein Urine 3+ (Negative); RBC Urine Automated >30 /hpf (0-4); Specific Gravity Urine 1.021 (1.000-1.030); Urobilinogen Urine Negative (Negative); WBC Urine Automated >30 /hpf (0-5)
[2020-06-14 18:40] LABS: Cast Urine Automated 0 /lpf (0-5)
[2020-06-14] MEDS: ROSUVASTATIN CALCIUM 5 MG TAB PO SCH (20:39)
--- NOTE | 2020-06-14 21:30 | Urology Consultation ---
Date of Consultation June 14, 2020 Assessment & Plan (1) Kidney stone on right side: Patient admitted due to hematoma of the leg. Patient is still dealing with major issues from major cardiac event. Patient had developed severe sepsis after an obstructing stone. Has had multiple comorbidities and issues after. Has been mainly held up due to to the severe cardiac and other concerns. Patient still has stent in place as stone has yet to be treated. Patient has been admitted multiple times. Does frequently have issues with urgency and frequency. Has not had severe episodes. Has been very concerned about possible development of UTI. We discussed possible issues and concerns. Major concern is that without stone treatment possibility that patient may develop another obstructing stone which would lead to another severe episode of sepsis or possibly worse issues such as multiorgan failure or . Patient is still recovering from major cardiac event and has dealt with multiple morbidities and other issues. We will need to consider different options moving forward. Would likely need to determine if patient is a possible candidate for surgical intervention with destruction of stone with plans to leave stent want tether that can be removed as soon as possible afterwards. Patient would require general anesthesia. We will need to consider effect on heart and lungs as well as patient's other issues. Also need to consider risk of possible stent removal without treatment of stone. We will plan to monitor for now. Will consider options moving forward. Possibly consider intervention depending on patient's ability to tolerate intervention/anesthesia (2) Right ureteral stone: (3) Hematuria, gross: History of Present Illness Attending Physician: Jose Wood History of Present Illness Consult for urinary issues with hematuria. Patient had developed issues after an obstructing stone with sepsis and had a stent placed. Patient subsequently developed an acute IN and has since been dealing with multiple issues and multiple hospitalizations since that. Patient is severely deconditioned. Patient has mild to moderate discomfort in pelvis and groin going to back and side in waves. Is dealing with acute illness. Has been deconditioned from this. Has decreased mobility significantly with acute issues. Denies significant previous episodes of hematuria. Is still able to void but does have considerable leakage at times. Stone has yet to be treated. And patient's major episode started with an acute episode of pyelonephritis secondary to obstructing stone. Has had some minor urinary issues in the past prior to major episode of severe sepsis and the multiple issues after her major event. No severe nausea or vomiting. Currently no fevers. No significant family history of malignancy. Allergies Allergy/AdvReac Type Severity Reaction Status Date / Time allopurinol Allergy Unknown COUGH Verified 06/12/20 17:31 blue dye Allergy Unknown BRILLIANT Verified 06/12/20 17:31 BLUE FCF dimethyl fumarate Allergy Unknown UNKNOWN Verified 06/12/20 17:31 Home Medications Home Medications Medication Instructions Recorded Confirmed Type aspirin 81 mg tablet,delayed 81 mg PO DAILY tab 05/25/19 06/12/20 History release biotin 5 mg tablet 5 tab PO DAILY tab 05/25/19 06/12/20 History fentanyl 25 mcg/hr transdermal 1 patch TD .COMPLEX ea 05/25/19 06/12/20 History patch pioglitazone 15 mg tablet 15 mg PO DAILY tab 05/25/19 06/12/20 History buspirone 10 mg tablet 10 mg PO BID PRN 09/03/19 06/12/20 History carbamazepine 200 mg tablet 200 mg PO DAILY tab 09/03/19 06/12/20 History dulaglutide 1.5 mg/0.5 mL 0 mg SQ WEEKLY ml 09/03/19 06/12/20 History subcutaneous pen injector gabapentin 800 mg tablet 800 mg PO TID #270 tab 09/03/19 06/12/20 Rx glipizide 10 mg tablet 10 mg PO BID 09/03/19 06/12/20 History levothyroxine 100 mcg tablet 100 mcg PO DAILY 09/03/19 06/12/20 History lorazepam 0.5 mg tablet 0.5 mg PO DAILY PRN 09/03/19 06/12/20 History metformin 500 mg tablet 500 mg PO QAM 09/03/19 06/12/20 History nitroglycerin 0.4 mg sublingual 0.4 mg SL Q5M PRN 09/03/19 06/12/20 History tablet acetaminophen [Tylenol] 650 mg PO Q6 PRN 09/19/19 06/12/20 History ergocalciferol (vitamin D2) 1,250 mcg PO WK 09/19/19 06/12/20 History [Vitamin D2] folic acid 0.4 mg PO DAILY 09/19/19 06/12/20 History senna 8.6 mg PO BID PRN 09/19/19 06/12/20 History furosemide 40 mg PO DAILY PRN 05/13/20 06/12/20 History isosorbide mononitrate 120 mg PO DAILY 05/13/20 06/12/20 History rosuvastatin 5 mg PO HS 05/13/20 06/12/20 History clopidogrel 75 mg PO QAM #30 tab 05/29/20 06/12/20 Rx amiodarone 200 mg PO DAILY 06/12/20 06/12/20 History diclofenac sodium 2 g TOPICAL QID PRN 06/12/20 06/12/20 History potassium chloride [Klor-Con M10] 10 meq PO DAILY PRN 06/12/20 06/12/20 History propranolol 60 mg PO QAM 06/12/20 06/12/20 History warfarin 4 mg PO QPM 06/12/20 06/12/20 History Patient History Medical History CAD (coronary artery disease) July 2009 -NSTEMI 2009-2 KYLER to circumflex obtuse marginal, 1 KYLER to RCA Carotid artery stenosis CKD (chronic kidney disease), stage III DM type 2 (diabetes mellitus, type 2) Dyslipidemia History of DVT (deep vein thrombosis) Hypertension Hypothyroidism Interstitial lung disease Legally blind Multiple sclerosis Seizure disorder Surgical History History of hysterectomy History of tonsillectomy Hx of cholecystectomy Family History Mother Heart disease Social History Smoking Status: Never smoker Hx Alcohol Use: No Hx Substance Use: No Preferred Language: Luxembourgish Communication Ability: Effective Aerobics Instructor Required: No Beliefs That Will Affect Care: None marital status: Current Living Situation: Spouse How many Children do You have: 4 Feels Safe at Home: No Is there a partner from a previous relationship who is making you feel unsafe now?: No Assistive Devices: Oxygen - Continuous and Walker Review of Systems Review of Systems: All systems reviewed & are unremarkable except as noted in HPI & below Physical Exam Physical Exam: General: Alert in no acute distress. Advanced age. Chronic Medical issues. HEENT: Normocephalic. Inspection normal. Cranial Nerves 2-12 Grossly intact with some hearing issues. Normal inspection of face. Normal inspection of neck. Psychologic: Normal affect. Baseline issues with memory. Respiratory: Nonlabored. No use of accessory muscles. No tachypnea or dyspnea. Cardiovascular: No tachycardia Skin: [place] and Dry. No rashes or visible lesions. Extremities/Lymphatics: Minor Mobility issues. Slow Gait. Abdomen: Soft Non-distended. No rebound or guarding. Obese. Results & Data ([facility]) Vital Signs (Past 12 Hours) Vital Signs Temp Pulse Pulse Resp BP Pulse Ox 06/14/20 19:25 37.0 C 65 18 154/69 H 100 06/14/20 15:10 37.1 C 59 L 20 116/68 98 06/14/20 15:00 63 06/14/20 11:47 37.1 C 60 20 133/64 97 PG Care Time/CCT Total # of Minutes Spent Total Time Spent with Patient: Total time spent is greater than 50% in coordination of care (as documented) at patient's floor/unit and/or counseling patient: Coding Level of Care Code 05622 Inpt Consult Level 5 Diagnoses Kidney stone on right side N20.0 Right ureteral stone N20.1 Hematuria, gross R31.0
--- NOTE | 2020-06-14 22:48 | Hospitalist Progress Note ---
Date of Service June 14, 2020 Assessment & Plan (1) Hematoma of left thigh: Traumatic due to falling back on her left side out of bed. - Hgb slightly below baseline of 8-10, at 8.1 - Monitor hgb; transfuse for hgb < 7 - Patient consented for blood if needed; in chart - INR is currently reversed. will continue to hold INR for now. (2) Anemia: Baseline hgb ~8-9. Due to CKD/chronic disease and now due to acute blood loss anemia. - at 8.1 - Transfuse for hgb > 7 (3) Supratherapeutic INR: On warfarin for hx of DVT and paroxysmal afib. Reversed in the ED with vitamin K 2.5 mg IV x 1. - Hold warfarin - Closely monitor INR - Given very high bleed risk, CT head: was negative. (4) Syncope: Unclear etiology as the patient cannot give much history. Possibly due to vasovagal vs. seizure vs. arrythmia. - Monitor on telemetry - Monitor for seizure (5) CAD (coronary artery disease): Recent NSTEMI with troponin up to 7.9. Cath on 05/27 with bare metal stent to the LAD. Given recent stent, CANNOT stop DAPT unless cardiology approves. - Continue ASA/Plavix - Continue beta-silvia, statin - Cardiology consulted to weigh in on DAPT. (6) Hypertension: BP is 160/80 in the ED. - Continue beta-silvia, Imdur (7) DM type 2 (diabetes mellitus, type 2): A1c was 6.8% in 05/2020. - Hold home oral meds - Sliding scale insulin (8) Chronic diastolic heart failure: (9) Interstitial lung disease: Noted. - Continue O2 as needed (10) Multiple sclerosis: Follows with Dr. Pierce. - No inpatient needs (11) Seizure disorder: Unclear if loss of consciousness is seizure, as no corroborating witnesses to her fall. - Continue carbamazepine - Monitor for any seizure activity (12) Hypothyroidism: TSH was 4.8 in 05/2020. No signs/symptoms of hypo-/hyperthyroidism. - Continue home Synthroid 100 mcg (13) CKD (chronic kidney disease), stage III: Baseline Cr about 1.3 to 1.5. - Cr is 1.2 today. At baseline. - Monitor (14) Legally blind: Noted (15) Paroxysmal atrial fibrillation: In normal sinus on presentation. - Continue beta-silvia - Monitor INR (16) Right ureteral stone: Multiple recent admissions with UTI. Presently has a right-sided ureteral stent to be removed in 4-6 weeks. Dose of ceftriaxone given in the ED; however, no present symptoms of UTI and the UA looks dirty to me. - Monitor urine culture - Hold abx at this time (17) Essential tremor: Noted on exam today in the ED. - Continue beta-silvia (18) DVT prophylaxis: SCDs DNR/DNI - Confirmed with the patient. will obtain PT/OT. Admission and Anticipated Discharge Date Admission Date: June 12, 2020 Subjective Patient reports no new symptoms currently. Review of Systems Review of Systems: All systems reviewed & are unremarkable except as noted in HPI & below Physical Exam Physical Exam: Constitutional: WD/WN, vitals as above Eyes: EOM intact bilaterally; no conjunctival abnormality ENMT: external ear and nose normal, oropharynx normal Neck: trachea midline, no thyromegaly normal visual inspection Respiratory: normal respiratory effort, lungs clear to auscultation no respiratory distress Cardiovascular: RRR, no murmur, no edema Gastrointestinal (Abdomen): Inspection/Auscultation: abdomen normal to inspection; abdomen not distended Musculoskeletal: no cyanosis or clubbing, extremities motor strength 5/5 Skin: no rashes, warm and dry Neurologic: moves all extremities and awake Psychiatric: Orientation: alert, oriented to person and cooperative Results & Data Results & Data ([facility]) Vital Signs (Past 12 Hours) Vital Signs Temp Pulse Pulse Resp BP Pulse Ox 06/14/20 19:25 37.0 C 65 18 154/69 H 100 06/14/20 15:10 37.1 C 59 L 20 116/68 98 06/14/20 15:00 63 06/14/20 11:47 37.1 C 60 20 133/64 97 PG Care Time/CCT Total # of Minutes Spent Total Time Spent with Patient: Total time spent is greater than 50% in coordination of care (as documented) at patient's floor/unit and/or counseling patient: Coding Level of Care Code 26281 Subseq Hosp Care Lvl 2 Diagnoses Hematoma of left thigh S70.12XA Anemia D64.9 Anemia type: unspecified type Supratherapeutic INR R79.1 Syncope R55 Syncope type: unspecified CAD (coronary artery disease) I25.119 Associated angina: with unspecified angina Coronary Disease-Associated Artery/Lesion type: [place] artery [place] vs. transplanted heart: [place] heart Hypertension I10 Hypertension type: essential hypertension DM type 2 (diabetes mellitus, type 2) E11.69 Diabetes mellitus complication status: with other specified complication Diabetes mellitus correction insulin use: without correction use Chronic diastolic heart failure I50.32 Interstitial lung disease J84.9 Multiple sclerosis G35 Seizure disorder G40.909 Hypothyroidism E03.9 Hypothyroidism type: acquired CKD (chronic kidney disease), stage III N18.3 Legally blind H54.8 Paroxysmal atrial fibrillation I48.0 Right ureteral stone N20.1 Essential tremor G25.0 DVT prophylaxis Z29.9 Time Spent (min) 25 (1) DM type 2 (diabetes mellitus, type 2) Diabetes mellitus complication status: with other specified complication Diabetes mellitus rodent exterminator insulin use: without correction use Qualified Code(s): E11.69 - Type 2 diabetes mellitus with other specified complication (2) CAD (coronary artery disease) Associated angina: with unspecified angina Coronary Disease-Associated Artery/Lesion type: [place] artery [place] vs. transplanted heart: [place] heart Qualified Code(s): I25.119 - Atherosclerotic heart disease of [place] coronary artery with unspecified angina pectoris (3) Anemia Anemia type: unspecified type Qualified Code(s): D64.9 - Anemia, unspecified (4) Hypothyroidism Hypothyroidism type: acquired Qualified Code(s): E03.9 - Hypothyroidism, unspecified (5) Syncope Syncope type: unspecified Qualified Code(s): R55 - Syncope and collapse (6) Hypertension Hypertension type: essential hypertension Qualified Code(s): I10 - Essential (primary) hypertension
[2020-06-15] MEDS: CHECK fentaNYL PATCH PLACEMENT SCH ×3 (00:03→15:49)
[2020-06-15] MEDS: LEVOTHYROXINE SODIUM 100 MCG TABLET PO SCH (06:30)
[2020-06-15 07:55] LABS: Hematocrit (blood only) 23.7 % (37-47); Hemoglobin 7.6 g/dL (12.0-16.0); Mean Corpuscular Hemoglobin 31.8 pg (25-34); Mean Corpuscular Hgb Conc 32.1 g/dL (32-36); Mean Corpuscular Volume 99.2 fL (80-100); Mean Platelet Volume 9.5 fL (7.4-10.4); Platelet Count 306 K/uL (130-400); RDW Coefficient of Variation 14.3 % (11.5-14.5); RDW Standard Deviation 51.7 fL (36.4-46.3); Red Blood Count 2.39 M/uL (4.2-5.4); White Blood Count 5.93 K/uL (4.8-10.8)
[2020-06-15 08:21] LABS: INR 1.2 (0.9-1.1); Prothrombin Time 12.4 Seconds (9.0-12.0)
[2020-06-15 08:27] LABS: BUN Creatinine Ratio 10.9 (10-20); Calcium 9.6 mg/dl (8.5-10.1); Creatinine Clr Calc Pharmacy 34.1 ml/min; Est GFR (African American) 45.2; Potassium 4.4 mmol/L (3.5-5.1)
[2020-06-15] MEDS: INSULIN ASPART 100 UNITS/ML 3 ML PEN SC SCH ×4 (08:44→21:11)
[2020-06-15] MEDS: METOPROLOL SUCC 25MG EXT REL TAB PO SCH (08:45)
[2020-06-15] MEDS: GABAPENTIN 800 MG TAB PO SCH ×3 (08:45→21:11)
[2020-06-15] MEDS: CLOPIDOGREL BISULFATE 75 MG TAB PO SCH (08:45)
[2020-06-15] MEDS: AMIODARONE 200 MG TAB PO SCH (08:45)
[2020-06-15] MEDS: carBAMazepine 200 MG TABLET PO SCH (08:45)
[2020-06-15] MEDS: SENNA 8.6 MG TAB PO SCH ×2 (08:45→21:11)
[2020-06-15] MEDS: ISOSORBIDE MONO EXTENDED REL 60 MG TABCR PO SCH (08:45)
[2020-06-15] MEDS: ASPIRIN 81 MG ECTAB PO SCH (08:45)
--- NOTE | 2020-06-15 15:24 | Cardiology Progress Note ---
Date of Service June 15, 2020 Assessment & Plan (1) Hematoma of left hip: (2) Chronic diastolic heart failure: (3) Stented coronary artery: (4) Hematuria, gross: Urology input noted and appreciated. Patient remains off of anticoagulation with hemoglobin of 7.6, INR down to 1.2 status post vitamin K. Creatinine stable at 1.3. As well described in the urology note from today patient had developed sepsis after an obstructing stone and has a ureter stent in place and the stone is still present. During that admission for sepsis she developed a non-STEMI, with initial attempts at conservative therapy unsuccessful, ultimately prompting repeat admission, cardiac catheterization 05/27/2020 with findings of severe multivessel coronary heart disease including a acute 95% proximal mid LAD lesion treated with 2 overlapping bare-metal stents. Tentative plan was to interrupt antiplatelet therapy at a 1 month interval, (around 06/26/2020) to allow urology procedure to treat ureter stone. And to resume dual antiplatelet therapy for a year. She is anticoagulated with Coumadin due to recent development of paroxysmal atrial fibrillation in May, as well as past history of DVT. Continue observation. At present, I believe it is too early to safely interrupt her dual antiplatelet therapy, for fear of acute stent thrombosis. Admission and Anticipated Discharge Date Admission Date: June 12, 2020 Subjective Patient seen and examined. Feels more comfortable today. Telemetry reveals stable sinus rhythm in the 60 to 80 bpm range. Physical Exam Physical Exam: Temp Pulse Resp BP Pulse Ox 36.8 C 63 20 171/59 H 98 06/15/20 08:14 06/15/20 15:00 06/15/20 08:14 06/15/20 08:14 06/15/20 08:14 Constitutional: Chronically ill in appearance, no acute distress Respiratory: normal respiratory effort, lungs clear to auscultation Cardiovascular: RRR, no murmur, no edema Gastrointestinal (Abdomen): normal bowel sounds, soft, nontender, no hepatosplenomegaly Musculoskeletal: Left upper thigh, buttock hematoma with ecchymosis Neurologic: PERRL, EOMI, accommodation nl, no face palsy, no dysarthria Results & Data ([facility]) Vital Signs (Past 12 Hours) Vital Signs Temp Pulse Pulse Resp BP BP Pulse Ox 06/15/20 15:00 63 06/15/20 08:14 36.8 C 57 L 20 171/59 H 98 06/15/20 03:52 36.9 C 76 20 142/78 H 95
[2020-06-15] MEDS: POLYETHYLENE (MIRALAX) 17 GM PACK PO SCH (17:08)
[2020-06-15] MEDS: MELATONIN 3 MG TAB PO PRN (21:11)
[2020-06-15] MEDS: FLUCONAZOLE 200 MG/5 ML UDP PO SCH (21:11)
[2020-06-15] MEDS: ROSUVASTATIN CALCIUM 5 MG TAB PO SCH (21:13)
--- NOTE | 2020-06-15 21:54 | Hospitalist Progress Note ---
Date of Service June 15, 2020 Assessment & Plan (1) Hematoma of left thigh: Traumatic due to falling back on her left side out of bed. - Hgb slightly below baseline of 8-10, at 7.6 - Monitor hgb; transfuse for hgb < 7 - Patient consented for blood if needed; in chart - INR is currently reversed. will continue to hold warfarin for now. (2) Anemia: Baseline hgb ~8-9. Due to CKD/chronic disease and now due to acute blood loss anemia. - at 7.6 - Transfuse for hgb > 7 (3) Supratherapeutic INR: On warfarin for hx of DVT and paroxysmal afib. Reversed in the ED with vitamin K 2.5 mg IV x 1. - Hold warfarin - Closely monitor INR - Given very high bleed risk, CT head: was negative. (4) Syncope: Unclear etiology as the patient cannot give much history. Possibly due to vasovagal vs. seizure vs. arrythmia. - Monitor on telemetry - Monitor for seizure (5) CAD (coronary artery disease): Recent NSTEMI with troponin up to 7.9. Cath on 05/27 with bare metal stent to the LAD. Given recent stent, CANNOT stop DAPT unless cardiology approves. - Continue ASA/Plavix - Continue beta-silvia, statin - Cardiology consulted to weigh in on DAPT. (6) Hypertension: BP is 160/80 in the ED. - Continue beta-silvia, Imdur (7) DM type 2 (diabetes mellitus, type 2): A1c was 6.8% in 05/2020. - Hold home oral meds - Sliding scale insulin (8) Chronic diastolic heart failure: (9) Interstitial lung disease: Noted. - Continue O2 as needed (10) Multiple sclerosis: Follows with Dr. Pierce. - No inpatient needs (11) Seizure disorder: Unclear if loss of consciousness is seizure, as no corroborating witnesses to her fall. - Continue carbamazepine - Monitor for any seizure activity (12) Hypothyroidism: TSH was 4.8 in 05/2020. No signs/symptoms of hypo-/hyperthyroidism. - Continue home Synthroid 100 mcg (13) CKD (chronic kidney disease), stage III: Baseline Cr about 1.3 to 1.5. - Cr is 1.3 today. At baseline. - Monitor (14) Legally blind: Noted (15) Paroxysmal atrial fibrillation: In normal sinus on presentation. - Continue beta-silvia - Monitor INR (16) Right ureteral stone: Multiple recent admissions with UTI. Presently has a right-sided ureteral stent to be removed in 4-6 weeks. Dose of ceftriaxone given in the ED; however, no present symptoms of UTI and the UA looks dirty to me. - Monitor urine culture - Hold abx at this time -patient now having dysuria, consulted Urology. -Placed on fluconazole for positive urine culture. (17) Essential tremor: Noted on exam today in the ED. - Continue beta-silvia (18) DVT prophylaxis: SCDs DNR/DNI - Confirmed with the patient. will obtain PT/OT. Admission and Anticipated Discharge Date Admission Date: June 12, 2020 Subjective 80 yo female reports that her only complaint is dysuria, which she had the day prior. Review of Systems Review of Systems: All systems reviewed & are unremarkable except as noted in HPI & below Physical Exam Physical Exam: Constitutional: WD/WN, vitals as above Eyes: EOM intact bilaterally; no conjunctival abnormality ENMT: external ear and nose normal, oropharynx normal Neck: trachea midline, no thyromegaly normal visual inspection Respiratory: normal respiratory effort, lungs clear to auscultation no respiratory distress Cardiovascular: RRR, no murmur, no edema Gastrointestinal (Abdomen): Inspection/Auscultation: abdomen normal to inspection; abdomen not distended Musculoskeletal: no cyanosis or clubbing, extremities motor strength 5/5 Skin: no rashes, warm and dry Neurologic: moves all extremities and awake Psychiatric: Orientation: alert, oriented to person and cooperative Results & Data Results & Data ([facility]) Vital Signs (Past 12 Hours) Vital Signs Temp Pulse Pulse Resp BP Pulse Ox 06/15/20 19:29 36.7 C 63 18 157/73 H 99 06/15/20 15:00 63 PG Care Time/CCT Total # of Minutes Spent Total Time Spent with Patient: Total time spent is greater than 50% in coordination of care (as documented) at patient's floor/unit and/or counseling patient: Coding Level of Care Code 97802 Subseq Hosp Care Lvl 2 Diagnoses Hematoma of left thigh S70.12XA Anemia D64.9 Anemia type: unspecified type Supratherapeutic INR R79.1 Syncope R55 Syncope type: unspecified CAD (coronary artery disease) I25.119 Associated angina: with unspecified angina Coronary Disease-Associated Artery/Lesion type: [place] artery [place] vs. transplanted heart: [place] heart Hypertension I10 Hypertension type: essential hypertension DM type 2 (diabetes mellitus, type 2) E11.69 Diabetes mellitus complication status: with other specified complication Diabetes mellitus equipment operator intermodal yard insulin use: without equipment operator intermodal yard use Chronic diastolic heart failure I50.32 Interstitial lung disease J84.9 Multiple sclerosis G35 Seizure disorder G40.909 Hypothyroidism E03.9 Hypothyroidism type: acquired CKD (chronic kidney disease), stage III N18.3 Legally blind H54.8 Paroxysmal atrial fibrillation I48.0 Right ureteral stone N20.1 Essential tremor G25.0 DVT prophylaxis Z29.9 Time Spent (min) 25 (1) DM type 2 (diabetes mellitus, type 2) Diabetes mellitus complication status: with other specified complication Diabetes mellitus equipment operator intermodal yard insulin use: without snf use Qualified Code(s): E11.69 - Type 2 diabetes mellitus with other specified complication (2) CAD (coronary artery disease) Associated angina: with unspecified angina Coronary Disease-Associated Ar josiah/Lesion type: [place] artery [place] vs. transplanted heart: [place] heart Qualified Code(s): I25.119 - Atherosclerotic heart disease of [place] coronary artery with unspecified angina pectoris (3) Anemia Anemia type: unspecified type Qualified Code(s): D64.9 - Anemia, unspecified (4) Hypothyroidism Hypothyroidism type: acquired Qualified Code(s): E03.9 - Hypothyroidism, unspecified (5) Syncope Syncope type: unspecified Qualified Code(s): R55 - Syncope and collapse (6) Hypertension Hypertension type: essential hypertension Qualified Code(s): I10 - Essential (primary) hypertension
[2020-06-16] MEDS: CHECK fentaNYL PATCH PLACEMENT SCH ×3 (01:10→15:52)
[2020-06-16] MEDS: LEVOTHYROXINE SODIUM 100 MCG TABLET PO SCH (05:55)
[2020-06-16] MEDS: ONDANSETRON INJ 2 MG/ML 2 ML VIAL IV PRN ×2 (07:34→21:07)
[2020-06-16] MEDS: ACETAMINOPHEN 325 MG TAB PO PRN ×2 (07:36→18:00)
[2020-06-16] MEDS: METOPROLOL SUCC 25MG EXT REL TAB PO SCH ×2 (07:37→08:04)
[2020-06-16] MEDS: carBAMazepine 200 MG TABLET PO SCH (07:37)
[2020-06-16] MEDS: ASPIRIN 81 MG ECTAB PO SCH (07:42)
[2020-06-16] MEDS: CLOPIDOGREL BISULFATE 75 MG TAB PO SCH (07:42)
[2020-06-16] MEDS: SENNA 8.6 MG TAB PO SCH ×2 (07:42→21:07)
[2020-06-16] MEDS: AMIODARONE 200 MG TAB PO SCH (07:42)
[2020-06-16] MEDS: GABAPENTIN 800 MG TAB PO SCH ×3 (07:42→21:07)
[2020-06-16] MEDS: ISOSORBIDE MONO EXTENDED REL 60 MG TABCR PO SCH (07:42)
[2020-06-16] MEDS: POLYETHYLENE (MIRALAX) 17 GM PACK PO SCH (07:43)
[2020-06-16] MEDS: INSULIN ASPART 100 UNITS/ML 3 ML PEN SC SCH ×4 (08:05→21:05)
[2020-06-16 09:47] LABS: Hemoglobin 7.4 g/dL (12.0-16.0); Mean Corpuscular Hemoglobin 31.6 pg (25-34); Mean Corpuscular Hgb Conc 32.2 g/dL (32-36); Mean Corpuscular Volume 98.3 fL (80-100); Mean Platelet Volume 9.5 fL (7.4-10.4); Platelet Count 341 K/uL (130-400); RDW Coefficient of Variation 14.4 % (11.5-14.5); RDW Standard Deviation 51.4 fL (36.4-46.3); Red Blood Count 2.34 M/uL (4.2-5.4); White Blood Count 6.92 K/uL (4.8-10.8)
[2020-06-16 10:22] LABS: BUN Creatinine Ratio 9.6 (10-20); Calcium 9.7 mg/dl (8.5-10.1); Creatinine Clr Calc Pharmacy 31.8 ml/min; Est GFR (African American) 41.7; Potassium 4.8 mmol/L (3.5-5.1)
--- NOTE | 2020-06-16 15:01 | Cardiology Progress Note ---
Date of Service June 16, 2020 Assessment & Plan (1) Hematoma of left hip: (2) Chronic diastolic heart failure: (3) Stented coronary artery: (4) Hematuria, gross: Hemoglobin 7.4 today, 06/16/2020, having been 7.6 yesterday. Remains off Coumadin, INR has been reversed with vitamin K earlier this hospital stay. Patient had previously been on Coumadin for remote lower extremity DVT. Developed atrial fibrillation, new onset, May,, in sinus rhythm now on amiodarone, with sinus bradycardia in the 50s noted. At present, recommend patient remains off of Coumadin. Add SCDs for DVT prophylaxis while hospitalized. As of 06/26/2020 patient will be 4 weeks removed from overlapping bare-metal stents to high-grade LAD stenosis, and brief interruption could be considered to allow for lithotripsy for ureter stone if felt to be indicated. Admission and Anticipated Discharge Date Admission Date: June 12, 2020 Subjective Patient denies chest discomfort or palpitations. She feels that her left upper thigh, buttock/hip is improving status post fall. Telemetry reveals sinus bradycardia 59 bpm. Physical Exam Physical Exam: Temp Pulse Resp BP Pulse Ox 36.4 C L 50 L 18 159/72 H 98 06/16/20 11:30 06/16/20 11:30 06/16/20 11:30 06/16/20 11:30 06/16/20 11:30 Constitutional: WD/WN, vitals as above Respiratory: normal respiratory effort, lungs clear to auscultation Cardiovascular: RRR, no murmur, no edema Gastrointestinal (Abdomen): normal bowel sounds, soft, nontender, no hepatosplenomegaly Neurologic: PERRL, EOMI, accommodation nl, no face palsy, no dysarthria Results & Data ([facility]) Vital Signs (Past 12 Hours) Vital Signs Temp Pulse Resp BP BP Pulse Ox 06/16/20 11:30 36.4 C L 50 L 18 159/72 H 98 06/16/20 07:52 36.6 C 62 18 182/72 H 99 06/16/20 03:34 36.8 C 58 L 18 184/78 H 99
[2020-06-16] MEDS: ROSUVASTATIN CALCIUM 5 MG TAB PO SCH (21:07)
[2020-06-16] MEDS: MELATONIN 3 MG TAB PO PRN (21:07)
[2020-06-16] MEDS: FLUCONAZOLE 200 MG/5 ML UDP PO SCH (21:07)
--- NOTE | 2020-06-16 21:39 | Hospitalist Progress Note ---
Date of Service June 16, 2020 Assessment & Plan (1) Hematoma of left thigh: Traumatic due to falling back on her left side out of bed. - Hgb slightly below baseline of 8-10, at 7.6 - Monitor hgb; transfuse for hgb < 7 - Patient consented for blood if needed; in chart - INR is currently reversed. will continue to hold warfarin for now. (2) Anemia: Baseline hgb ~8-9. Due to CKD/chronic disease and now due to acute blood loss anemia. - at 7.6 - Transfuse for hgb > 7 (3) Supratherapeutic INR: On warfarin for hx of DVT and paroxysmal afib. Reversed in the ED with vitamin K 2.5 mg IV x 1. - Hold warfarin - Closely monitor INR: now subtherapuetic - Given very high bleed risk, CT head: was negative. (4) Syncope: Unclear etiology as the patient cannot give much history. Possibly due to vasovagal vs. seizure vs. arrythmia. - Monitor on telemetry - Monitor for seizure (5) CAD (coronary artery disease): Recent NSTEMI with troponin up to 7.9. Cath on 05/27 with bare metal stent to the LAD. Given recent stent, CANNOT stop DAPT unless cardiology approves. - Continue ASA/Plavix - Continue beta-silvia, statin - Cardiology consulted to weigh in on DAPT. (6) Hypertension: BP is 160/80 in the ED. - Continue beta-silvia, Imdur (7) DM type 2 (diabetes mellitus, type 2): A1c was 6.8% in 05/2020. - Hold home oral meds - Sliding scale insulin (8) Chronic diastolic heart failure: (9) Interstitial lung disease: Noted. - Continue O2 as needed (10) Multiple sclerosis: Follows with Dr. Pierce. - No inpatient needs (11) Seizure disorder: Unclear if loss of consciousness is seizure, as no corroborating witnesses to her fall. - Continue carbamazepine - Monitor for any seizure activity (12) Hypothyroidism: TSH was 4.8 in 05/2020. No signs/symptoms of hypo-/hyperthyroidism. - Continue home Synthroid 100 mcg (13) CKD (chronic kidney disease), stage III: Baseline Cr about 1.3 to 1.5. - Cr is 1.3 today. At baseline. - Monitor (14) Legally blind: Noted (15) Paroxysmal atrial fibrillation: In normal sinus on presentation. - Continue beta-silvia - Monitor INR (16) Right ureteral stone: Multiple recent admissions with UTI. Presently has a right-sided ureteral stent to be removed in 4-6 weeks. Dose of ceftriaxone given in the ED; however, no present symptoms of UTI and the UA looks dirty to me. - Monitor urine culture - Hold abx at this time -patient now having dysuria, consulted Urology. -Placed on fluconazole for positive urine culture. may need stent removed, Cardio recommends that this get removed despite high cardiac risk given likely complications if not removed. (17) Essential tremor: Noted on exam today in the ED. - Continue beta-silvia (18) DVT prophylaxis: SCDs DNR/DNI - Confirmed with the patient. will obtain PT/OT. Admission and Anticipated Discharge Date Admission Date: June 12, 2020 Subjective 80 yo female reports that her main complaint was epigastric abd. pain which was short lived. She reported feeling well for the majority of the day. Review of Systems Review of Systems: All systems reviewed & are unremarkable except as noted in HPI & below Physical Exam Physical Exam: Constitutional: WD/WN, vitals as above Eyes: EOM intact bilaterally; no conjunctival abnormality ENMT: external ear and nose normal, oropharynx normal Neck: trachea midline, no thyromegaly normal visual inspection Respiratory: normal respiratory effort, lungs clear to auscultation no respiratory distress Cardiovascular: RRR, no murmur, no edema Gastrointestinal (Abdomen): Inspection/Auscultation: abdomen normal to inspection; abdomen not distended Musculoskeletal: no cyanosis or clubbing, extremities motor strength 5/5 Skin: no rashes, warm and dry Neurologic: moves all extremities and awake Psychiatric: Orientation: alert, oriented to person and cooperative Results & Data Results & Data ([facility]) Vital Signs (Past 12 Hours) Vital Signs Temp Pulse Pulse Resp BP BP Pulse Ox 06/16/20 20:03 36.8 C 57 L 18 164/68 H 97 06/16/20 16:13 36.8 C 63 18 171/67 H 99 06/16/20 16:00 58 L 06/16/20 11:30 36.4 C L 50 L 18 159/72 H 98 PG Care Time/CCT Total # of Minutes Spent Total Time Spent with Patient: Total time spent is greater than 50% in coordination of care (as documented) at patient's floor/unit and/or counseling patient: Coding Level of Care Code 99635 Subseq Hosp Care Lvl 3 Diagnoses Hematoma of left thigh S70.12XA Anemia D64.9 Anemia type: unspecified type Supratherapeutic INR R79.1 Syncope R55 Syncope type: unspecified CAD (coronary artery disease) I25.119 Associated angina: with unspecified angina Coronary Disease-Associated Artery/Lesion type: [place] artery [place] vs. transplanted heart: [place] heart Hypertension I10 Hypertension type: essential hypertension DM type 2 (diabetes mellitus, type 2) E11.69 Diabetes mellitus complication status: with other specified complication Diabetes mellitus development specialist insulin use: without residential use Chronic diastolic heart failure I50.32 Interstitial lung disease J84.9 Multiple sclerosis G35 Seizure disorder G40.909 Hypothyroidism E03.9 Hypothyroidism type: acquired CKD (chronic kidney disease), stage III N18.3 Legally blind H54.8 Paroxysmal atrial fibrillation I48.0 Right ureteral stone N20.1 Essential tremor G25.0 DVT prophylaxis Z29.9 Time Spent (min) 35 (1) DM type 2 (diabetes mellitus, type 2) Diabetes mellitus complication status: with other specified complication Diabetes mellitus residential insulin use: without residential use Qualified Code(s): E11.69 - Type 2 diabetes mellitus with other specified complication (2) CAD (coronary artery disease) Associated angina: with unspecified angina Coronary Disease-Associated Artery/Lesion type: [place] artery [place] vs. transplanted heart: [place] heart Qualified Code(s): I25.119 - Atherosclerotic heart disease of [place] coronary artery with unspecified angina pectoris (3) Anemia Anemia type: unspecified type Qualified Code(s): D64.9 - Anemia, unspecified (4) Hypothyroidism Hypothyroidism type: acquired Qualified Code(s): E03.9 - Hypothyroidism, unspecified (5) Syncope Syncope type: unspecified Qualified Code(s): R55 - Syncope and collapse (6) Hypertension Hypertension type: essential hypertension Qualified Code(s): I10 - Essential (primary) hypertension
[2020-06-17] MEDS: CHECK fentaNYL PATCH PLACEMENT SCH ×3 (00:07→15:45)
[2020-06-17] MEDS: LEVOTHYROXINE SODIUM 100 MCG TABLET PO SCH (05:45)
[2020-06-17] MEDS: GABAPENTIN 800 MG TAB PO SCH ×3 (08:21→20:07)
[2020-06-17] MEDS: carBAMazepine 200 MG TABLET PO SCH (08:21)
[2020-06-17] MEDS: SENNA 8.6 MG TAB PO SCH ×2 (08:21→20:07)
[2020-06-17] MEDS: CLOPIDOGREL BISULFATE 75 MG TAB PO SCH (08:21)
[2020-06-17] MEDS: AMIODARONE 200 MG TAB PO SCH (08:21)
[2020-06-17] MEDS: ISOSORBIDE MONO EXTENDED REL 60 MG TABCR PO SCH (08:21)
[2020-06-17] MEDS: ASPIRIN 81 MG ECTAB PO SCH (08:22)
[2020-06-17] MEDS: POLYETHYLENE (MIRALAX) 17 GM PACK PO SCH ×2 (08:22→08:36)
[2020-06-17] MEDS: INSULIN ASPART 100 UNITS/ML 3 ML PEN SC SCH ×4 (08:29→20:23)
[2020-06-17] MEDS: METOPROLOL SUCC 25MG EXT REL TAB PO SCH (08:30)
[2020-06-17 08:40] LABS: BUN Creatinine Ratio 9.1 (10-20); Creatinine Clr Calc Pharmacy 35.8 ml/min; Est GFR (African American) 47.4; Est GFR (Non-African American) 40.9; Potassium 4.8 mmol/L (3.5-5.1)
[2020-06-17 08:58] LABS: Basophils # (auto) 0.03 K/uL (0-0.2); Basophils % (auto) 0.5 %; Eosinophils # (auto) 0.25 K/uL (0-0.5); Eosinophils % (auto) 4.4 %; Hematocrit (blood only) 23.6 % (37-47); Hemoglobin 7.6 g/dL (12.0-16.0); Immature Granulocytes # (auto) 0.01 K/uL (0.00-0.02); Immature Granulocytes % (auto) 0.2 %; Lymphocytes # (auto) 0.56 K/uL (1.2-3.4); Lymphocytes % (auto) 9.9 %; Mean Corpuscular Hemoglobin 31.7 pg (25-34); Mean Corpuscular Hgb Conc 32.2 g/dL (32-36); Mean Corpuscular Volume 98.3 fL (80-100); Mean Platelet Volume 9.4 fL (7.4-10.4); Monocytes # (auto) 0.72 K/uL (0.11-0.59); Monocytes % (auto) 12.7 %; Neutrophils % (auto) 72.3 %; Platelet Count 335 K/uL (130-400); RDW Coefficient of Variation 14.3 % (11.5-14.5); RDW Standard Deviation 51.6 fL (36.4-46.3); White Blood Count 5.67 K/uL (4.8-10.8)
[2020-06-17 09:43] LABS: RBC Morphology Unremarkable
--- NOTE | 2020-06-17 12:24 | Anesthesiology Consultation ---
Date of Service June 17, 2020 Elderly female with significant PMH including CAD, NSTEMI with stent 05/27/20. Also has ureteral calculus with stent in place. Scheduled for cystoscopy 06/18/20. Pt high risk due to recent VT. However indwelling ureteral stent and calculus pose risk of sepsis and further morbidity, so cystocopy is deemed neccesary. Discussed with pt and daughter at bedside who expressed understanding. Further discussion, plan and consent will be managed DOS by attending anesthesiologist. History Height/Weight Height: 5 ft Weight: 87.3 kg Allergies Allergy/AdvReac Type Severity Reaction Status Date / Time allopurinol Allergy Unknown COUGH Verified 06/12/20 17:31 blue dye Allergy Unknown BRILLIANT Verified 06/12/20 17:31 BLUE FCF dimethyl fumarate Allergy Unknown UNKNOWN Verified 06/12/20 17:31 Medications Home Medications Medication Instructions Recorded Confirmed Last Taken aspirin 81 mg tablet,delayed 81 mg PO DAILY tab 05/25/19 06/12/20 06/12/20 release biotin 5 mg tablet 5 tab PO DAILY tab 05/25/19 06/12/20 06/12/20 fentanyl 25 mcg/hr transdermal 1 patch TD .COMPLEX ea 05/25/19 06/12/20 05/12/20 patch pioglitazone 15 mg tablet 15 mg PO DAILY tab 05/25/19 06/12/20 06/12/20 buspirone 10 mg tablet 10 mg PO BID PRN 09/03/19 06/12/20 Unknown carbamazepine 200 mg tablet 200 mg PO DAILY tab 09/03/19 06/12/20 06/12/20 dulaglutide 1.5 mg/0.5 mL 0 mg SQ WEEKLY ml 09/03/19 06/12/20 Unknown subcutaneous pen injector gabapentin 800 mg tablet 800 mg PO TID #270 tab 09/03/19 06/12/20 06/12/20 08:00 glipizide 10 mg tablet 10 mg PO BID 09/03/19 06/12/20 06/12/20 08:00 levothyroxine 100 mcg tablet 100 mcg PO DAILY 09/03/19 06/12/20 06/12/20 lorazepam 0.5 mg tablet 0.5 mg PO DAILY PRN 09/03/19 06/12/20 Unknown metformin 500 mg tablet 500 mg PO QAM 09/03/19 06/12/20 06/12/20 nitroglycerin 0.4 mg sublingual 0.4 mg SL Q5M PRN 09/03/19 06/12/20 Unknown tablet acetaminophen [Tylenol] 650 mg PO Q6 PRN 09/19/19 06/12/20 Unknown ergocalciferol (vitamin D2) 1,250 mcg PO WK 09/19/19 06/12/20 06/06/20 [Vitamin D2] folic acid 0.4 mg PO DAILY 09/19/19 06/12/20 06/12/20 senna 8.6 mg PO BID PRN 09/19/19 06/12/20 Unknown furosemide 40 mg PO DAILY PRN 05/13/20 06/12/20 Unknown isosorbide mononitrate 120 mg PO DAILY 05/13/20 06/12/20 06/12/20 rosuvastatin 5 mg PO HS 05/13/20 06/12/20 06/11/20 clopidogrel 75 mg PO QAM #30 tab 05/29/20 06/12/20 06/12/20 amiodarone 200 mg PO DAILY 06/12/20 06/12/20 06/12/20 diclofenac sodium 2 g TOPICAL QID PRN 06/12/20 06/12/20 Unknown potassium chloride [Klor-Con M10] 10 meq PO DAILY PRN 06/12/20 06/12/20 Unknown propranolol 60 mg PO QAM 06/12/20 06/12/20 06/12/20 08:00 warfarin 4 mg PO QPM 06/12/20 06/12/20 06/11/20 Active Medications Generic Name Dose Route Start Last Admin Trade Name [facility] PRN Reason Stop Dose Admin Acetaminophen 650 mg 06/12/20 23:35 06/16/20 18:00 Acetaminophen 325 Mg Tab PO 07/12/20 23:34 650 mg Q4H PRN Administration Pain Amiodarone HCl 200 mg 06/13/20 09:00 06/17/20 08:21 Amiodarone 200 Mg Tab PO 07/13/20 08:59 200 mg DAILY NATHANIEL Administration Aspirin 81 mg 06/13/20 09:00 06/17/20 08:22 Aspirin 81 Mg Ectab PO 07/13/20 08:59 81 mg DAILY NATHANIEL Administration Carbamazepine 200 mg 06/13/20 09:00 10/13/20 08:21 Carbamazepine 200 Mg Tablet PO 07/13/20 08:59 200 mg DAILY NATHANIEL Administration Clopidogrel Bisulfate 75 mg 06/13/20 09:00 06/17/20 08:21 Clopidogrel Bisulfate 75 Mg Tab PO 07/13/20 08:59 75 mg QAM NATHANIEL Administration Fentanyl 25 mcg 06/14/20 16:30 06/14/20 17:15 Fentanyl 25 Mcg/Hr Tdsy TD 06/28/20 16:29 25 mcg Q72H NATHANIEL Administration Fluconazole 200 mg 06/15/20 21:00 06/16/20 21:07 Fluconazole 200 Mg/5 Ml Udp PO 06/20/20 20:59 200 mg QPM NATHANIEL Administration Protocol Gabapentin 800 mg 06/12/20 23:35 06/17/20 08:21 Gabapentin 800 Mg Tab PO 07/12/20 23:34 800 mg TID NATHANIEL Administration Insulin Aspart 0 units 06/12/20 23:35 06/17/20 12:13 Insulin Aspart 100 Units/Ml 3 Ml Pen SC 07/12/20 23:34 6 units ACHS NATHANIEL Administration Isosorbide Mononitrate 120 mg 06/13/20 09:00 06/17/20 08:21 Isosorbide [place] Extended Rel 60 Mg Tabcr PO 07/13/20 08:59 120 mg DAILY NATHANIEL Administration Levothyroxine Sodium 100 mcg 06/13/20 06:30 06/17/20 05:45 Levothyroxine Sodium 100 Mcg Tablet PO 07/13/20 06:29 100 mcg DAILYBB NATHANIEL Administration Melatonin 3 mg 06/15/20 21:04 06/16/20 21:07 Melatonin 3 Mg Tab PO 07/15/20 21:03 3 mg HS PRN Administration Sleep Metoprolol Succinate 25 mg 06/13/20 09:00 06/17/20 08:30 Metoprolol Succ 25mg Ext Rel Tab PO 07/13/20 08:59 25 mg QAM NATHANIEL Administration Miscellaneous 1 ea 06/13/20 08:00 06/17/20 08:22 Check Fentanyl Patch Placement N/A 07/13/20 07:59 1 ea QS NATHANIEL Administration Ondansetron HCl 4 mg 06/12/20 23:35 06/16/20 21:07 Ondansetron Inj 2 Mg/Ml 2 Ml Vial IV 07/12/20 23:34 4 mg Q4H PRN Administration Nausea Polyethylene Glycol 17 gm 10/11/20 16:15 06/17/20 08:36 Polyethylene (Miralax) 17 Gm Pack PO 07/15/20 16:14 Not Given DAILY NATHANIEL Rosuvastatin Calcium 5 mg 06/12/20 23:35 06/16/20 21:07 Rosuvastatin Calcium 5 Mg Tab PO 07/12/20 23:34 5 mg HS NATHANIEL Administration Sennosides 8.6 mg 06/13/20 20:30 06/17/20 08:21 Senna 8.6 Mg Tab PO 07/13/20 20:29 8.6 mg BID NATHANIEL Administration Past Medical History Medical History CAD (coronary artery disease) July 2009 -NSTEMI 2009-2 KYLER to circumflex obtuse marginal, 1 KYLER to RCA Carotid artery stenosis CKD (chronic kidney disease), stage III DM type 2 (diabetes mellitus, type 2) Dyslipidemia History of DVT (deep vein thrombosis) Hypertension Hypothyroidism Interstitial lung disease Legally blind Multiple sclerosis Seizure disorder Past Family History Family History Mother Heart disease Past Surgical History Surgical History History of hysterectomy History of tonsillectomy Hx of cholecystectomy Social History Smoking Status: Never smoker Hx Alcohol Use: No Hx Substance Use: No Physical Exam Vital Signs Last Vital Signs Temp 36.8 C 06/17/20 11:53 Pulse 57 L 06/17/20 11:53 Resp 20 06/17/20 11:53 BP 125/76 06/17/20 11:53 Pulse Ox 98 06/17/20 11:53 Testing Laboratory Results 06/17/20 08:01 06/17/20 07:54 PT 12.4 Seconds (9.0-12.0) H 06/15/20 07:31 INR 1.2 (0.9-1.1) H 06/15/20 07:31 Urine Color Dark Yellow 06/14/20 17:50 Urine Appearance Turbid (Clear) A 06/14/20 17:50 Urine pH 5.0 (4.5-7.5) 06/14/20 17:50 Ur Specific [place] 1.021 (1.000-1.030) 06/14/20 17:50 Urine Protein 3+ (Negative) H 06/14/20 17:50 Urine Glucose (UA) Negative (Negative) 06/14/20 17:50 Urine Ketones Trace (Negative) H 06/14/20 17:50 Urine Nitrite Negative (Negative) 06/14/20 17:50 Ur Leukocyte Esterase 3+ (Negative) H 06/14/20 17:50 Urine WBC (Auto) >30 /hpf (0-5) H 06/14/20 17:50 Urine RBC (Auto) >30 /hpf (0-4) H 06/14/20 17:50 U Hyaline Cast (Auto) 0 /lpf (0-5) 06/14/20 17:50 U Epithel Cells (Auto) >30 /lpf (0-5) H 06/14/20 17:50 Urine Bacteria (Auto) Negative (Negative) 06/14/20 17:50 06/14/20 17:50 Urine Culture - Final Urine,Straight Cath Nuris albicans/dubliniensis 06/12/20 16:46 Urine Culture - Final Urine,Clean Catch Three types or organisms present, all moderate counts probable skin albert. No further identifications or sensitivities to follow. 06/17/20 06/17/20 11:40 07:39 POC Glucose 209 H 149 H
--- NOTE | 2020-06-17 15:44 | Cardiology Progress Note ---
Date of Service June 17, 2020 Assessment & Plan (1) Stented coronary artery: (2) Hematuria, gross: Patient status post overlapping bare-metal stents 05/27/2020. Has recurrent gross hematuria, known ureter stone, ureter stent. Her blood pressure was uncharacteristically high for her on her most recent reading 180/102, otherwise they have been relatively well controlled. There is no room to go up on her beta-silvia as she has baseline sinus bradycardia. We will proceed with preprocedure EKG tomorrow in the morning, 06/18/2020. She is deemed high risk for anesthesia for cystoscopy, however as noted, also at risk for sepsis and ongoing anemia related to hematuria. If we can perform the said procedure on dual antiplatelet therapy that would be most ideal. His treatment for kidney stone, to include lithotripsy is necessary, will cautiously interrupt aspirin clopidogrel as necessary. Admission and Anticipated Discharge Date Admission Date: June 12, 2020 Subjective Patient seen in follow-up. She is accompanied by her daughter at the bedside. Feeling well at present. Denies dysuria. Notes occasional discomfort at the inferior border of her left breast when she is sleeping, but none while awake, she has not really been active, has only been in bed, chair, and ambulating to the bathroom minimally. Review of Systems Review of Systems: All systems reviewed & are unremarkable except as noted in HPI & below Physical Exam Physical Exam: Temp Pulse Resp BP Pulse Ox 36.5 C 59 L 16 180/102 H 97 06/17/20 15:08 06/17/20 15:22 06/17/20 15:08 06/17/20 15:08 06/17/20 15:08 Constitutional: WD/WN, vitals as above Respiratory: normal respiratory effort, lungs clear to auscultation Cardiovascular: RRR, no murmur, no edema Neurologic: PERRL, EOMI, accommodation nl, no face palsy, no dysarthria Legally blind Results & Data ([facility]) Vital Signs (Past 12 Hours) Vital Signs Temp Pulse Pulse Resp BP BP Pulse Ox 06/17/20 15:22 59 L 06/17/20 15:08 36.5 C 58 L 16 180/102 H 97 06/17/20 11:53 36.8 C 57 L 20 125/76 98 06/17/20 07:50 36.7 C 58 L 22 150/68 H 99 06/17/20 07:13 59 L 06/17/20 04:31 36.4 C L 57 L 16 159/82 H 99 Laboratory Results Cardiac Enzymes 06/17/20 Range/Units 07:45 Troponin I 0.032 (0-0.045) ng/ml CBC 06/17/20 Range/Units 08:01 WBC 5.67 (4.8-10.8) K/uL RBC 2.40 L (4.2-5.4) M/uL Hgb 7.6 L (12.0-16.0) g/dL Hct 23.6 L (37-47) % Plt Count 335 (130-400) K/uL Neut # (Auto) 4.10 (1.4-6.5) K/uL Lymph # (Auto) 0.56 L (1.2-3.4) K/uL [place] # (Auto) 0.72 H (0.11-0.59) K/uL Eos # (Auto) 0.25 (0-0.5) K/uL Baso # (Auto) 0.03 (0-0.2) K/uL Comprehensive Metabolic Panel 06/17/20 Range/Units 07:54 Sodium 136 (136-145) mmol/L Potassium 4.8 (3.5-5.1) mmol/L Chloride 101 (98-107) mmol/L Carbon Dioxide 31 (21-32) mmol/L BUN 11 (7-18) mg/dl Creatinine 1.25 H (0.6-1.2) mg/dl Glucose 141 H (70-99) mg/dl Calcium 10.0 (8.5-10.1) mg/dl Intake and Output 06/17/20 06/17/20 06/17/20 06:59 14:59 22:59 Intake Total 100 / 620 480 / 480 Balance 100 / 619 480 / 480 Intake: Oral 100 / 620 480 / 480 Other: # Unmeasured Voids 2 Weight 87.3 kg 87.3 kg Weight Measurement Method Built in [facility] Patient Weight 06/18/20 06:59 Weight 87.3 kg
[2020-06-17] MEDS: fentaNYL 25 MCG/HR TDSY TD SCH (15:47)
[2020-06-17] MEDS: ALUMINUM/MAGNESIUM SUSP 30 ML UDC PO STA ×2 (19:58→20:14)
[2020-06-17] MEDS: FLUCONAZOLE 200 MG/5 ML UDP PO SCH (20:06)
[2020-06-17] MEDS: ROSUVASTATIN CALCIUM 5 MG TAB PO SCH (20:06)
[2020-06-17] MEDS: ACETAMINOPHEN 325 MG TAB PO PRN (21:33)
[2020-06-17] MEDS: MELATONIN 3 MG TAB PO PRN (22:13)
--- NOTE | 2020-06-17 23:34 | Hospitalist Progress Note ---
Date of Service June 17, 2020 Assessment & Plan (1) Hematoma of left thigh: Traumatic due to falling back on her left side out of bed. - Hgb slightly below baseline of 8-10, at 7.6 - Monitor hgb; transfuse for hgb < 7 - Patient consented for blood if needed; in chart - INR is currently reversed. will continue to hold warfarin for now. (2) Right ureteral stone: Multiple recent admissions with UTI. Presently has a right-sided ureteral stent to be removed in 4-6 weeks. Dose of ceftriaxone given in the ED; however, no present symptoms of UTI and the UA looks dirty to me. - Monitor urine culture - Hold abx at this time -patient now having dysuria, consulted Urology. -Placed on fluconazole for positive urine culture. -may need stent removed, Cardio recommends that this get removed despite high cardiac risk given likely complications if not removed: hematuria worsening anemia, sepsis. -consulted anesthesiology for input. -d/w nurse appears procedure is scheduled for 06/18 (3) Anemia: Baseline hgb ~8-9. Due to CKD/chronic disease and now due to acute blood loss anemia. - at 7.6 - Transfuse for hgb > 7 (4) Supratherapeutic INR: On warfarin for hx of DVT and paroxysmal afib. Reversed in the ED with vitamin K 2.5 mg IV x 1. - Hold warfarin - Closely monitor INR: now subtherapuetic - Given very high bleed risk, CT head: was negative. (5) Syncope: Unclear etiology as the patient cannot give much history. Possibly due to vasovagal vs. seizure vs. arrythmia. - Monitor on telemetry - Monitor for seizure (6) CAD (coronary artery disease): Recent NSTEMI with troponin up to 7.9. Cath on 05/27 with bare metal stent to the LAD. Given recent stent, CANNOT stop DAPT unless cardiology approves. - Continue ASA/Plavix - Continue beta-silvia, statin - Cardiology consulted to weigh in on DAPT. (7) Hypertension: BP is 160/80 in the ED. - Continue beta-silvia, Imdur (8) DM type 2 (diabetes mellitus, type 2): A1c was 6.8% in 05/2020. - Hold home oral meds - Sliding scale insulin (9) Chronic diastolic heart failure: (10) Interstitial lung disease: Noted. - Continue O2 as needed (11) Multiple sclerosis: Follows with Dr. Pierce. - No inpatient needs (12) Seizure disorder: Unclear if loss of consciousness is seizure, as no corroborating witnesses to her fall. - Continue carbamazepine - Monitor for any seizure activity (13) Hypothyroidism: TSH was 4.8 in 05/2020. No signs/symptoms of hypo-/hyperthyroidism. - Continue home Synthroid 100 mcg (14) CKD (chronic kidney disease), stage III: Baseline Cr about 1.3 to 1.5. - Cr is 1.3 today. At baseline. - Monitor (15) Legally blind: Noted (16) Paroxysmal atrial fibrillation: In normal sinus on presentation. - Continue beta-silvia - Monitor INR (17) Essential tremor: Noted on exam today in the ED. - Continue beta-silvia (18) DVT prophylaxis: SCDs DNR/DNI - Confirmed with the patient. will obtain PT/OT. Admission and Anticipated Discharge Date Admission Date: June 12, 2020 Subjective Patient reports no new symptoms today. Review of Systems Review of Systems: All systems reviewed & are unremarkable except as noted in HPI & below Physical Exam Physical Exam: Constitutional: WD/WN, vitals as above Eyes: EOM intact bilaterally; no conjunctival abnormality ENMT: external ear and nose normal, oropharynx normal Neck: trachea midline, no thyromegaly normal visual inspection Respiratory: normal respiratory effort, lungs clear to auscultation no respiratory distress Cardiovascular: RRR, no murmur, no edema Gastrointestinal (Abdomen): Inspection/Auscultation: abdomen normal to inspection; abdomen not distended Musculoskeletal: no cyanosis or clubbing, extremities motor strength 5/5 Skin: no rashes, warm and dry Neurologic: moves all extremities and awake Psychiatric: Orientation: alert, oriented to person and cooperative Results & Data Results & Data ([facility]) Vital Signs (Past 12 Hours) Vital Signs Temp Pulse Pulse Resp BP Pulse Ox 06/17/20 23:17 36.6 C 67 18 132/77 93 06/17/20 19:48 36.6 C 62 18 174/76 H 99 06/17/20 16:30 54 L 156/69 H 06/17/20 15:22 59 L 06/17/20 15:08 36.5 C 58 L 16 180/102 H 97 06/17/20 11:53 36.8 C 57 L 20 125/76 98 PG Care Time/CCT Total # of Minutes Spent Total Time Spent with Patient: Total time spent is greater than 50% in coordination of care (as documented) at patient's floor/unit and/or counseling patient: Coding Level of Care Code 12871 Subseq Hosp Care Lvl 2 Diagnoses Hematoma of left thigh S70.12XA Right ureteral stone N20.1 Anemia D64.9 Anemia type: unspecified type Supratherapeutic INR R79.1 Syncope R55 Syncope type: unspecified CAD (coronary artery disease) I25.119 Associated angina: with unspecified angina Coronary Disease-Associated Artery/Lesion type: [place] artery [place] vs. transplanted heart: [place] heart Hypertension I10 Hypertension type: essential hypertension DM type 2 (diabetes mellitus, type 2) E11.69 Diabetes mellitus complication status: with other specified complication Diabetes mellitus moth exterminator insulin use: without moth exterminator use Chronic diastolic heart failure I50.32 Interstitial lung disease J84.9 Multiple sclerosis G35 Seizure disorder G40.909 Hypothyroidism E03.9 Hypothyroidism type: acquired CKD (chronic kidney disease), stage III N18.3 Legally blind H54.8 Paroxysmal atrial fibrillation I48.0 Essential tremor G25.0 DVT prophylaxis Z29.9 Time Spent (min) 25 (1) DM type 2 (diabetes mellitus, type 2) Diabetes mellitus complication status: with other specified complication Diabetes mellitus halfway insulin use: without moth exterminator use Qualified Code(s): E11.69 - Type 2 diabetes mellitus with other specified complication (2) CAD (coronary artery disease) Associated angina: with unspecified angina Coronary Disease-Associated Artery/Lesion type: [place] artery [place] vs. transplanted heart: [place] heart Qualified Code(s): I25.119 - Atherosclerotic heart disease of [place] coronary artery with unspecified angina pectoris (3) Anemia Anemia type: unspecified type Qualified Code(s): D64.9 - Anemia, unspecified (4) Hypothyroidism Hypothyroidism type: acquired Qualified Code(s): E03.9 - Hypothyroidism, unspecified (5) Syncope Syncope type: unspecified Qualified Code(s): R55 - Syncope and collapse (6) Hypertension Hypertension type: essential hypertension Qualified Code(s): I10 - Essential (primary) hypertension
[2020-06-18] MEDS: CHECK fentaNYL PATCH PLACEMENT SCH ×3 (01:00→19:23)
[2020-06-18] MEDS: LEVOTHYROXINE SODIUM 100 MCG TABLET PO SCH (06:22)
[2020-06-18 07:16] LABS: Creatinine Clr Calc Pharmacy 31.7 ml/min; Est GFR (Non-African American) 35.3
[2020-06-18 07:46] LABS: Hematocrit (blood only) 22.8 % (37-47); Hemoglobin 7.1 g/dL (12.0-16.0); Mean Corpuscular Hgb Conc 31.1 g/dL (32-36); Mean Corpuscular Volume 99.6 fL (80-100); Mean Platelet Volume 9.4 fL (7.4-10.4); Platelet Count 324 K/uL (130-400); RDW Coefficient of Variation 14.7 % (11.5-14.5); RDW Standard Deviation 52.3 fL (36.4-46.3); Red Blood Count 2.29 M/uL (4.2-5.4); White Blood Count 5.95 K/uL (4.8-10.8)
[2020-06-18 08:04] LABS: BUN Creatinine Ratio 10.2 (10-20); Calcium 9.3 mg/dl (8.5-10.1); Est GFR (African American) 41.3; Est GFR (Non-African American) 35.6; Magnesium 1.7 mg/dl (1.8-2.4); Potassium 4.4 mmol/L (3.5-5.1)
[2020-06-18] MEDS: SENNA 8.6 MG TAB PO SCH ×2 (08:06→20:22)
[2020-06-18] MEDS: GABAPENTIN 800 MG TAB PO SCH ×3 (08:06→20:23)
[2020-06-18] MEDS: METOPROLOL SUCC 25MG EXT REL TAB PO SCH (08:07)
[2020-06-18] MEDS: ISOSORBIDE MONO EXTENDED REL 60 MG TABCR PO SCH (08:07)
[2020-06-18] MEDS: ASPIRIN 81 MG ECTAB PO SCH (08:07)
[2020-06-18] MEDS: AMIODARONE 200 MG TAB PO SCH (08:07)
[2020-06-18] MEDS: CLOPIDOGREL BISULFATE 75 MG TAB PO SCH (08:08)
[2020-06-18] MEDS: carBAMazepine 200 MG TABLET PO SCH (08:08)
[2020-06-18] MEDS: INSULIN ASPART 100 UNITS/ML 3 ML PEN SC SCH ×4 (08:11→20:30)
--- NOTE | 2020-06-18 08:58 | Urology Progress Note ---
Date of Service June 18, 2020 Assessment & Plan (1) Right ureteral stone: 80 yo F with multiple comorbidities admitted for fall and left leg hematoma. - Pt with multiple comorbidities including recent hospitalizations for urosepsis secondary to right ureteral stone s/p right ureteral stent placement and subsequent NSTEMI s/p coronary artery stent placement. - Pt would like stent removed under anesthesia during hospitalization. - She is high risk surgical candidate in setting of recent cardiac event and coronary stent. - Reviewed cardiology notes, discussed case with hospital team - they feel she is optimized for procedure. - Stone not visualized on KUB this AM. - Case discussed with Dr. Guallpa. - Proceed with cystoscopy, right ureteroscopy, laser lithotripsy, stone extraction, and stent exchange. - Keep NPO. - Risks and benefits to be reviewed with patient by Dr. Guallpa. - OR notified. EKG and CXR up to date on chart. Will cover with IV Ciprofloxacin preoperatively. - Plan is to leave a tethered stent which likely will be removed prior to discharge. - She is agreeable to plan, all questions answered. Admission and Anticipated Discharge Date Admission Date: June 12, 2020 Supervising Physician Co-Signing Physician Notes Patient is extremely high risk. Had talked with cardiology as well as the hospitalist. Patient is not tolerating stent well. Did explain to her that stent related discomfort and other issues are to be expected with this. Patient had a severe episode of sepsis which led to a major cardiac event and is still in the recovery phase of this. Patient is continuing to not tolerate stent. Different options were discussed. Patient understands extreme risk of possible issues related to anesthesia and intervention. Understands possibility of major complications. Understands concerns and issues. Discussed need for stone treatment as patient will be extremely high risk to develop obstruction and sepsis again without drainage. Risk and benefits are discussed at length. Patient understands and is agreeable. He does understand that this does have an extremely high risk moving forward. We will plan for cystoscopy and treatment of stones with likely stent exchange. Plan to leave the stent on tether so that it can be removed bedside after the procedure Subjective Pt examined this AM. Awake, sitting up in bedside chair. Appears comfortable. No issues overnight. No abdominal, flank or suprapubic pain. Voiding spontaneously. No hematuria. Mild dysuria. No fever or chills. No nausea or vomiting. Tolerating her stent, though adamant about having it removed during hospitalization. Chart review: Afebrile. Creatinine 1.40, WBC 5.95, Hgb 7.1. KUB demonstrated right ureteral stent in place. No urinary calculi identified. Small right renal pelvis and right renal calculi on CT of May 26, 2020 not visualized on this exam, possibly due to technique. No additional concerns today. Review of Systems Constitutional: as per Subjective / HPI Gastrointestinal: as per Subjective / HPI Genitourinary: as per Subjective / HPI Physical Exam Constitutional: well developed and well nourished; no acute distress and not ill appearing Respiratory: normal respiratory effort and able to speak in complete sentences; no respiratory distress and no labored breathing Cardiovascular: Extremities: no pedal edema Gastrointestinal (Abdomen): Inspection/Auscultation: abdomen normal to inspection; abdomen not distended Percussion/Palpation: abdomen soft; abdomen nontender and no guarding Musculoskeletal: Head/Neck/Chest: normocephalic and head atraumatic Extr emities: extremities normal to inspection Skin: warm and dry Neurologic: moves all extremities and awake Psychiatric: Orientation: alert and oriented x 3 Genitourinary: no CVA tenderness Results & Data ([facility]) Vital Signs (Past 12 Hours) Vital Signs Temp Pulse Pulse Resp BP Pulse Ox 06/18/20 07:42 36.4 C L 73 16 189/78 H 96 06/18/20 04:00 36.4 C L 56 L 18 180/78 H 98 06/18/20 01:55 56 L 06/17/20 23:17 36.6 C 67 18 132/77 93 PG Care Time/CCT Total # of Minutes Spent Total Time Spent with Patient: Total time spent is greater than 50% in coordination of care (as documented) at patient's floor/unit and/or counseling patient: Coding Level of Care Code 52309 Subseq Hosp Care Lvl 3 Diagnoses Right ureteral stone N20.1
--- NOTE | 2020-06-18 09:40 | XRay Report ---
KUB CLINICAL HISTORY: right ureteral stone COMPARISON STUDY: KUB May 21, 2020. CT of the abdomen and pelvis May 26, 2020. FINDINGS: Right ureteral stent remains in place. The small right renal pelvis and right renal calculi shown on CT of May 26, 2020 are not visualized on this exam. The pelvic calcifications reflect vascular calcifications and phleboliths. The bowel gas pattern is normal. IMPRESSION: Right ureteral stent in place. No urinary calculi identified. Small right renal pelvis a nd right renal calculi on CT of May 26, 2020 not visualized on this exam, possibly due to techn ique. ACT 112: Negative or not required by law. Electronically signed by: Kd Collins M.D. 06/18/2020 9:39 AM
[2020-06-18] MEDS ORDERED: CIPROFLOXACIN / D5W 400 MG/200 ML BAG IV SCH (11:30)
--- NOTE | 2020-06-18 11:33 | Cardiology Progress Note ---
Date of Service June 18, 2020 Assessment & Plan (1) Stented coronary artery: Continue dual antiplatelet therapy given recent intracoronary stent. (2) Hematuria, gross: Patient status post overlapping bare-metal stents 05/27/2020. Has recurrent gross hematuria, known ureter stone, ureter stent. Her blood pressure was uncharacteristically high for her on the evening of 06/17 and again early this morning 06/18/2020, but much improved now with most recent reading of 115/76. The patient expressed frustration, as she thought that perhaps she was having cystoscopy today, she was offered reassurance, with regards to making sure that she is optimized from a cardiac and noncardiac status prior to proposed sedation/procedure. Although she has had several brief episodes of chest discomfort, I do not think she is having acute coronary syndrome, and she remains on aspirin and clopidogrel without interruption. As previously noted, if treatment for the ureter stone requires interruption in her antiplatelet therapy, we could proceed with this with caution to allow the most minimal amount of time off of the medications. Continue amiodarone for arrhythmia suppression, new onset atrial fibrillation noted in May, in sinus rhythm having converted on amiodarone during previous hospital stay. Given history of syncopal episodes, we need to continue to monitor her heart rhythm closely as she is at risk for bradycardia arrhythmias on her current dose of metoprolol and amiodarone. She had previously been on Coumadin prior to the diagnosis of atrial fibrillation for past history of lower extremity DVT. Coumadin on hold given anemia, and left hip/thigh hematoma, continue SCDs when in bed. Admission and Anticipated Discharge Date Admission Date: June 12, 2020 Subjective Patient seen in follow-up, Dr. Ana Pozo also at bedside at the time of my interview/assessment as was the patient's daughter. Telemetry reveals sinus rhythm in the 50s to 60s. EKG performed this morning 06/18/2020 reveals sinus bradycardia 59 bpm with first-degree AV block, ME interval 230 ms, diffuse nonspecific T wave flattening. Compared to prior EKG dating back to 05/26 the previously noted lateral T wave inversions have resolved. Physical Exam Physical Exam: Temp Pulse Resp BP Pulse Ox 36.5 C 72 16 115/76 96 06/18/20 11:21 06/18/20 11:21 06/18/20 11:21 06/18/20 11:21 06/18/20 11:21 Constitutional: WD/WN, vitals as above Respiratory: normal respiratory effort, lungs clear to auscultation Cardiovascular: RRR, no murmur, no edema Neurologic: Chronic visual impairment, unchanged, no focal deficits Results & Data ([facility]) Vital Signs (Past 12 Hours) Vital Signs Temp Pulse Pulse Resp BP Pulse Ox 06/18/20 11:21 36.5 C 72 16 115/76 96 06/18/20 07:42 36.4 C L 73 16 189/78 H 96 06/18/20 04:00 36.4 C L 56 L 18 180/78 H 98 06/18/20 01:55 56 L
[2020-06-18] MEDS: POLYETHYLENE (MIRALAX) 17 GM PACK PO SCH (12:00)
[2020-06-18] MEDS: MAGNESIUM OXIDE 400 MG TAB PO SCH ×2 (12:01→20:23)
--- NOTE | 2020-06-18 12:31 | Hospitalist Progress Note ---
Date of Service June 18, 2020 Assessment & Plan (1) Right ureteral stone: Multiple recent admissions with UTI. Presently has a right-sided ureteral stent to be removed in 4-6 weeks. - Monitor urine culture from 06/14 - Growing Nuris albicans/dubliniesis again (multiple cultures with this). - Presently on fluconazole and prophylactic ciprofloxacin - Plan for stent removal today with urology. (2) Hematoma of left thigh: Traumatic due to falling back on her left side out of bed. - Hgb slightly below baseline of 8-10, at 7.1 today. - Monitor hgb; transfuse for hgb < 7 - Patient consented for blood if needed; in chart - Patient's INR reversed in ED - Now 1.2. (3) Anemia: Baseline hgb ~8-9. Due to CKD/chronic disease and now due to acute blood loss anemia. - On admission, down to 7.8; now 7.1. - Transfuse for hgb > 7 (4) Syncope: Unclear etiology as the patient cannot give much history. Possibly due to vasovagal vs. seizure vs. arrythmia. - Monitor on telemetry - Monitor for seizure - None so far (5) CAD (coronary artery disease): Recent NSTEMI with troponin up to 7.9. Cath on 05/27 with bare metal stent to the LAD. Given recent stent, CANNOT stop DAPT unless cardiology approves. - Continue ASA/Plavix - Continue beta-silvia, statin - Cardiology consulted to weigh in on DAPT - Appreciate recs. For now will continue. If risks>benefits in the near future, could consider pausing, but continue at present. (6) Hypertension: BP is 160/80 in the ED. Now at 115/75. - Continue beta-silvia, Imdur (7) DM type 2 (diabetes mellitus, type 2): A1c was 6.8% in 05/2020. - Hold home oral meds - Sliding scale insulin - Overall in good range in last 24 hours. (8) Chronic diastolic heart failure: No indication of volume overload at present. - Monitor (9) Interstitial lung disease: Noted. - Continue O2 as needed (10) Multiple sclerosis: Follows with Dr. Pierce. - No inpatient needs (11) Seizure disorder: Unclear if loss of consciousness is seizure, as no corroborating witnesses to her fall. - Continue carbamazepine - Monitor for any seizure activity -> Consider neurology consult if so (12) Hypothyroidism: TSH was 4.8 in 05/2020. No signs/symptoms of hypo-/hyperthyroidism. - Continue home Synthroid 100 mcg (13) CKD (chronic kidney disease), stage III: Baseline Cr about 1.3 to 1.5. - Cr is 1.4 today. At baseline. - Monitor (14) Legally blind: Noted (15) Paroxysmal atrial fibrillation: In normal sinus on presentation. - Continue beta-silvia - Monitor INR (16) Essential tremor: Noted on exam today in the ED. - Continue beta-silvia (17) DVT prophylaxis: SCDs DNR/DNI - Confirmed with the patient. Admission and Anticipated Discharge Date Admission Date: June 12, 2020 Subjective Pain in left hip is tolerable, and really only present on palpations. She is frustrated by the delays in surgery. Reports no fevers/chills, chest pain, shortness of breath, abdominal pain, nausea, or vomiting. Physical Exam Constitutional: WD/WN, vitals as above Eyes: EOM intact bilaterally; no conjunctival abnormality ENMT: external ear and nose normal, oropharynx normal Neck: trachea midline, no thyromegaly normal visual inspection Respiratory: normal respiratory effort, lungs clear to auscultation no respiratory distress Cardiovascular: RRR, no murmur, no edema Gastrointestinal (Abdomen): Inspection/Auscultation: abdomen normal to inspection; abdomen not distended Musculoskeletal: no cyanosis or clubbing, extremities motor strength 5/5 Extremities: + extremities abnormal to inspection (Left thigh hematoma) Skin: no rashes, warm and dry Neurologic: moves all extremities and awake Psychiatric: Orientation: alert, oriented to person and cooperative Results & Data Results & Data ([facility]) Vital Signs (Past 12 Hours) Vital Signs Temp Pulse Pulse Resp BP Pulse Ox 06/18/20 11:21 36.5 C 72 16 115/76 96 06/18/20 08:00 44 L 06/18/20 07:42 36.4 C L 73 16 189/78 H 96 06/18/20 04:00 36.4 C L 56 L 18 180/78 H 98 06/18/20 01:55 56 L PG Care Time/CCT Total # of Minutes Spent Total Time Spent with Patient: Total time spent is greater than 50% in coordination of care (as documented) at patient's floor/unit and/or counseling patient: Coding Level of Care Code 97801 Subseq Hosp Care Lvl 3 Diagnoses Right ureteral stone N20.1 Hematoma of left thigh S70.12XA Anemia D64.9 Anemia type: unspecified type Syncope R55 Syncope type: unspecified CAD (coronary artery disease) I25.119 Coronary Disease-Associated Artery/Lesion type: [place] artery [place] vs. transplanted heart: [place] heart Associated angina: with unspecified angina Hypertension I10 Hypertension type: essential hypertension DM type 2 (diabetes mellitus, type 2) E11.69 Diabetes mellitus fdc insulin use: without predatory animal exterminator use Diabetes mellitus complication status: with other specified complication Chronic diastolic heart failure I50.32 Interstitial lung disease J84.9 Multiple sclerosis G35 Seizure disorder G40.909 Hypothyroidism E03.9 Hypothyroidism type: acquired CKD (chronic kidney disease), stage III N18.3 Legally blind H54.8 Paroxysmal atrial fibrillation I48.0 Essential tremor G25.0 DVT prophylaxis Z29.9 (1) Anemia Anemia type: unspecified type Qualified Code(s): D64.9 - Anemia, unspecified (2) Syncope Syncope type: unspecified Qualified Code(s): R55 - Syncope and collapse (3) CAD (coronary artery disease) Coronary Disease-Associated Artery/Lesion type: [place] artery [place] vs. transplanted heart: [place] heart Associated angina: with unspecified angina Qualified Code(s): I25.119 - Atherosclerotic heart disease of [place] coronary artery with unspecified angina pectoris (4) Hypertension Hypertension type: essential hypertension Qualified Code(s): I10 - Essential (primary) hypertension (5) DM type 2 (diabetes mellitus, type 2) Diabetes mellitus predatory animal exterminator insulin use: without predatory animal exterminator use Diabetes mellitus complication status: with other specified complication Qualified Code(s): E11.69 - Type 2 diabetes mellitus with other specified complication (6) Hypothyroidism Hypothyroidism type: acquired Qualified Code(s): E03.9 - Hypothyroidism, unspecified
--- NOTE | 2020-06-18 13:07 | Electrocardiogram Report ---
Test Reason : Blood Pressure : / mmHG Vent. Rate : 060 BPM Atrial Rate : 060 BPM P-R Int : 200 ms QRS Dur : 090 ms QT Int : 452 ms P-R-T Axes : 071 022 039 degrees QTc Int : 452 ms Normal sinus rhythm Nonspecific T wave abnormality Abnormal ECG When compared with ECG of 26-MAY-2020 15:01, T wave inversion no longer evident in Anterolateral leads Confirmed by Rock Gabriel ([id number]) on 06/18/2020 1:07:03 PM Referred By: REFERRED SELF Confirmed By:Rock Gabriel
--- NOTE | 2020-06-18 13:16 | Electrocardiogram Report ---
Test Reason : Blood Pressure : / mmHG Vent. Rate : 059 BPM Atrial Rate : 059 BPM P-R Int : 230 ms QRS Dur : 092 ms QT Int : 450 ms P-R-T Axes : 082 034 028 degrees QTc Int : 445 ms Sinus bradycardia with 1st degree A-V block Otherwise normal ECG When compared with ECG of 17-JUN-2020 20:11, (unconfirmed) ME interval has increased Confirmed by Rock Gabriel ([id number]) on 06/18/2020 1:16:28 PM Referred By: REFERRED SELF Confirmed By:Rock Gabriel
[2020-06-18] MEDS ORDERED: LIDOCAINE HCL 2% 2 ML VIAL/AMP(20MG/ML) INFIL ONE (15:16)
[2020-06-18] MEDS ORDERED: PROPOFOL IV EMULSION 10 MG/ML 20 ML VIAL IV ONE (15:16)
[2020-06-18] MEDS ORDERED: fentaNYL citrate 100 MCG/2 ML VIAL ONE (15:17)
[2020-06-18] MEDS ORDERED: ONDANSETRON INJ 2 MG/ML 2 ML VIAL IV PRN (15:54)
[2020-06-18] MEDS ORDERED: ATROPINE SULFATE 0.1 MG/ML 10ML SYR IV PRN (15:54)
[2020-06-18] MEDS ORDERED: ePHEDrine sulfate 50 MG/ML AMP IV PRN (15:54)
[2020-06-18] MEDS ORDERED: fentaNYL citrate 100 MCG/2 ML VIAL IV PRN (15:54)
[2020-06-18] MEDS ORDERED: PROMETHAZINE HCL 12.5 MG in SODIUM CHLORIDE 0.9% 50 ML IV PRN (15:54)
[2020-06-18] MEDS ORDERED: ONDANSETRON INJ 2 MG/ML 2 ML VIAL ONE ×2 (16:37)
--- NOTE | 2020-06-18 17:04 | Operative Report ---
PG Post Operative Report Pre & Post Diagnosis Operation Date: 06/18/20 10:20 Pre-Op Diagnosis: Right ureteral stone Post-Op Diagnosis: Right ureteral stone I identified the patient and participated in the time-out.: Yes Procedure Operation Date: 06/18/20 10:20 Actual Procedures p Cystoscopy, Right Ureteroscopy, Right Ureteral Dilation, Right Stent Exchange, Right Basket Stone Extraction(Right) - Fletcher Guallpa DO Surgeon Fletcher Guallpa, II, DO Awning Craftsman None Estimated Blood Loss 1 Findings Consistent with Post-Op Diagnosis Stone fragments removed. Specimens Stone Fragments Drains 6 Fr Multilength on tether Anesthesia Type General Complications none Disposition Disposition: Recovery Room Indications Patient with bothersome stones. Risks and benefits discussed at length. Description of Procedure Patient was consented and brought back to the operating room. Patient was placed under anesthesia in the supine position and moved to the dorsal lithotomy position. Patient was prepped and draped in the regular sterile fashion. A time out was completed identifying the correct patient and procedure. A 30degree Cystoscope was placed into the bladder and the entire bladder was examined. The UO's were identified. The stent was grasped partially removed and a wire placed The UO was cannulized with a catheter over the wire and a retrograde pyelogram was completed. A second wire was then placed. A ureteral access sheath and second safety wire was placed. Ureter had to be dilated. The flexible ureteroscope was taken into the ureter. The entire ureter and renal pelvis were examined. The stones were identified. The stones were found in the upper pole and consisted of one larger approximately 3 mm stone and 2 smaller stones each approximately 1 mm. The stones were grasped and removed and sent for analysis. The entire area was once again examined. No residual large fragments or areas of concern were noted. Additional stones were attempted to be found throughout the renal pelvis but no other stones were discovered. The scope was slowly removed with the wire left in place. Contrast was placed through the scope for a pyelogram to assist in stent placement. The entire ureter was examined as the scope was slowly removed. The area of narrowing was noted in the distal/mid ureter. This was the area that had been dilated. No obstructions or other areas of concern were noted. With the wire in place, a 6 Fr Double J stent was placed. This was attached to the skin. It was confirmed with fluoroscopy. With the stent in place, the bladder was emptied. The scope was removed. The patient was cleaned, aroused from anesthesia, and transferred to the pacu in stable condition having tolerated the procedure well with no complications. I was present and participated in all aspects of the procedure. The patient will be monitored in the PACU until transferred. I attest to the content of the Intraoperative Record and any orders documented therein. Any exceptions are noted below.
[2020-06-18] MEDS ORDERED: DIATRIZOATE MEGLUMINE 30% 100ML VIAL INSTIL ONE (17:11)
--- NOTE | 2020-06-18 17:23 | Fluoroscopy Report ---
FL retrograde includes kub CLINICAL HISTORY: RIGHT CYSTO/STENT/LASER COMPARISON STUDY: 06/18/2020 FLUOROSCOPY TIME: 37 seconds. NUMBER OF FLUOROSCOPIC IMAGES: 3 FINDINGS: 3 fluoroscopic spot images are provided for interpretation. Image #1 demonstrates a guidewi re with an upper pole calyx. There is a cystoscope at the L4-5 level. Image #2 demonstrates the dista l portion of a right-sided nephroureteral stent. Image #3 demonstrates the proximal portion of a doub le pigtail nephroureteral stent. There is contrast within the right renal pelvis. IMPRESSION: Intraprocedural fluoroscopic spot images obtained during right-sided retrograde study st one extraction and stent placement. ACT 112: Negative or not required by law. Electronically signed by: Adam Khoury M.D. 06/18/2020 5:22 PM
--- NOTE | 2020-06-18 17:54 | Anesthesiology Progress Note ---
Date of Service June 18, 2020 Anesthesia Post Procedure Vital Signs Vital Signs: Temp Pulse Pulse Resp BP Pulse Ox 06/18/20 17:35 57 L 18 119/54 L 98 06/18/20 17:25 55 L 18 165/68 H 98 06/18/20 17:19 37.0 C 57 L 20 172/68 H 100 06/18/20 15:45 37.4 C 58 L 20 176/95 H 99 06/18/20 15:33 36.9 C 87 16 121/71 96 06/18/20 11:21 36.5 C 72 16 115/76 96 06/18/20 08:00 44 L 06/18/20 07:42 36.4 C L 73 16 189/78 H 96 06/18/20 04:00 36.4 C L 56 L 18 180/78 H 98 06/18/20 01:55 56 L 06/17/20 23:17 36.6 C 67 18 132/77 93 06/17/20 19:48 36.6 C 62 18 174/76 H 99 Pain Intensity Hip: Pain Intensity: 3 Right Head: Pain Intensity: 0 Transfer of Care Handoff Completed per policy Notes Mental Status: alert / awake / arousable Patient Amnestic to Procedure: Yes Nausea / Vomiting: adequately controlled Pain: adequately controlled Airway Patency, RR, SpO2: stable & adequate BP & HR: stable & adequate Hydration State: stable & adequate Anesthetic Complications: no major complications apparent
[2020-06-18] MEDS: ONDANSETRON INJ 2 MG/ML 2 ML VIAL IV PRN (18:51)
[2020-06-18] MEDS ORDERED: fentaNYL 25 MCG/HR TDSY TD SCH (20:00)
[2020-06-18] MEDS: ROSUVASTATIN CALCIUM 5 MG TAB PO SCH (20:22)
[2020-06-18] MEDS: FLUCONAZOLE 200 MG/5 ML UDP PO SCH (20:23)
[2020-06-18] MEDS: MELATONIN 3 MG TAB PO PRN (20:24)
[2020-06-19] MEDS: CHECK fentaNYL PATCH PLACEMENT SCH ×2 (00:32→08:42)
[2020-06-19] MEDS: LEVOTHYROXINE SODIUM 100 MCG TABLET PO SCH (05:36)
[2020-06-19 07:58] LABS: Hematocrit (blood only) 23.4 % (37-47); Hemoglobin 7.5 g/dL (12.0-16.0); Mean Corpuscular Hemoglobin 32.1 pg (25-34); Mean Corpuscular Hgb Conc 32.1 g/dL (32-36); Mean Platelet Volume 9.3 fL (7.4-10.4); Platelet Count 311 K/uL (130-400); RDW Coefficient of Variation 14.9 % (11.5-14.5); RDW Standard Deviation 53.5 fL (36.4-46.3); Red Blood Count 2.34 M/uL (4.2-5.4); White Blood Count 7.09 K/uL (4.8-10.8)
[2020-06-19 08:25] LABS: BUN Creatinine Ratio 8.6 (10-20); Calcium 9.4 mg/dl (8.5-10.1); Creatinine Clr Calc Pharmacy 35.8 ml/min; Est GFR (African American) 47.4; Est GFR (Non-African American) 40.9; Magnesium 1.7 mg/dl (1.8-2.4); Potassium 4.4 mmol/L (3.5-5.1)
[2020-06-19] MEDS: INSULIN ASPART 100 UNITS/ML 3 ML PEN SC SCH ×2 (08:43→12:11)
[2020-06-19] MEDS: METOPROLOL SUCC 25MG EXT REL TAB PO SCH (08:47)
[2020-06-19] MEDS: SENNA 8.6 MG TAB PO SCH (08:47)
[2020-06-19] MEDS: CLOPIDOGREL BISULFATE 75 MG TAB PO SCH (08:47)
[2020-06-19] MEDS: carBAMazepine 200 MG TABLET PO SCH (08:47)
[2020-06-19] MEDS: MAGNESIUM OXIDE 400 MG TAB PO SCH (08:48)
[2020-06-19] MEDS: ISOSORBIDE MONO EXTENDED REL 60 MG TABCR PO SCH (08:48)
[2020-06-19] MEDS: AMIODARONE 200 MG TAB PO SCH (08:48)
[2020-06-19] MEDS: ASPIRIN 81 MG ECTAB PO SCH (08:48)
[2020-06-19] MEDS: POLYETHYLENE (MIRALAX) 17 GM PACK PO SCH (08:49)
[2020-06-19] MEDS: GABAPENTIN 800 MG TAB PO SCH ×2 (08:49→13:39)
--- NOTE | 2020-06-19 11:02 | Urology Progress Note ---
Date of Service June 19, 2020 Assessment & Plan (1) Right ureteral stone: 80 yo F POD #1 s/p cystoscopy, right ureteral dilation, right ureteroscopy, stone basket extraction, and right stent exchange. - Doing well post-op - Creatinine improved to 1.25 today - Tolerating stent with minimal bother - Will plan to remove tethered stent prior to her discharge, will coordinate with hospital team - Contacted by Dr. Joshua Pozo at 1420 that patient was ready for discharge - I personally removed tethered stent at bedside at 1440, removed without difficulty, no complications and patient tolerated well - Plan to follow-up outpatient with our service in 1 month with [facility] Admission and Anticipated Discharge Date Admission Date: June 12, 2020 Subjective 80 yo F POD #1 s/p cystoscopy, right ureteral dilation, right ureteroscopy, stone basket extraction, and right stent exchange. Pt sleeping on arrival and daughter at bedside. Doing well this AM. No pain or complaints at present. No flank or abdominal pain. Tolerating stent with minimal bother. Tolerating diet, no nausea or vomiting. Voiding spontaneously. Notes some incontinence. No hematuria per daughter's report. Some dysuria. No f/c/n/v. Chart review: Creatinine 1.25, WBC 7.09, Hgb 7.5 Review of Systems Constitutional: as per Subjective / HPI Gastrointestinal: as per Subjective / HPI Genitourinary: as per Subjective / HPI Physical Exam Constitutional: well developed and well nourished; no acute distress and not ill appearing Respiratory: normal respiratory effort and able to speak in complete sentences; no respiratory distress and no labored breathing Cardiovascular: Extremities: no pedal edema Gastrointestinal (Abdomen): Inspection/Auscultation: abdomen normal to inspection; abdomen not distended Percussion/Palpation: abdomen soft; abdomen nontender Musculoskeletal: Head/Neck/Chest: normocephalic and head atraumatic Skin: warm and dry Neurologic: awake Psychiatric: A+Ox3, euthymic affect Genitourinary: no CVA tenderness Results & Data ([facility]) Vital Signs (Past 12 Hours) Vital Signs Temp Pulse Pulse Resp BP BP Pulse Ox 06/19/20 07:41 36.9 C 80 20 138/65 96 06/19/20 07:36 67 06/19/20 04:00 36.7 C 61 18 128/75 94 06/19/20 02:43 60 06/19/20 00:00 36.7 C 62 18 117/64 96 PG Care Time/CCT Total # of Minutes Spent Total Time Spent with Patient: Total time spent is greater than 50% in coordination of care (as documented) at patient's floor/unit and/or counseling patient: Coding Level of Care Code 20158 Subseq Hosp Care Lvl 3 Diagnoses Right ureteral stone N20.1
--- NOTE | 2020-06-19 13:02 | Cardiology Progress Note ---
Date of Service June 19, 2020 Assessment & Plan (1) Stented coronary artery: (2) Hematoma of left hip: (3) Anemia: (4) Hematuria, gross: (5) Paroxysmal atrial fibrillation: Status post cystoscopy with ureter stent exchange, retrieval of ureter stone 06/18/2020 which she tolerated well. Ongoing anemia, hemoglobin 7.5, relatively stable compared to previous, no current angina. At present I am in favor of continuing dual antiplatelet therapy with aspirin and clopidogrel. Continue to hold Coumadin. In terms of stroke prophylaxis she is in sinus rhythm on amiodarone. Was previously on Coumadin for lower extremity DVT, and given recent bleeding issues, and it is most prudent to continue present without Coumadin therapy. Has outpatient follow-up scheduled Dr. Borja on 07/08/2020. Admission and Anticipated Discharge Date Admission Date: June 12, 2020 Subjective Patient seen in follow-up. Daughter at bedside. She tolerated cystoscopy well yesterday. Telemetry reveals ongoing sinus rhythm in the range of 50 to 60 bpm. No angina. Continues to complain of mild dysuria. Notes mild urinary incontinence. Physical Exam Physical Exam: Temp Pulse Resp BP Pulse Ox 36.8 C 63 20 128/44 L 93 06/19/20 12:15 06/19/20 12:15 06/19/20 12:15 06/19/20 12:15 06/19/20 12:15 Constitutional: WD/WN, vitals as above Cardiovascular: RRR, no murmur, no edema Gastrointestinal (Abdomen): normal bowel sounds, soft, nontender, no hepatosplenomegaly Neurologic: Legally blind. No focal motor deficits. Fluent speech. Results & Data ([facility]) Vital Signs (Past 12 Hours) Vital Signs Temp Pulse Pulse Resp BP BP Pulse Ox 06/19/20 12:15 36.8 C 63 20 128/44 L 93 06/19/20 07:41 36.9 C 80 20 138/65 96 06/19/20 07:36 67 06/19/20 04:00 36.7 C 61 18 128/75 94 06/19/20 02:43 60 Laboratory Results CBC 06/19/20 Range/Units 07:26 WBC 7.09 (4.8-10.8) K/uL RBC 2.34 L (4.2-5.4) M/uL Hgb 7.5 L (12.0-16.0) g/dL Hct 23.4 L (37-47) % Plt Count 311 (130-400) K/uL Comprehensive Metabolic Panel 06/19/20 Range/Units 07:26 Sodium 137 (136-145) mmol/L Potassium 4.4 (3.5-5.1) mmol/L Chloride 101 (98-107) mmol/L Carbon Dioxide 31 (21-32) mmol/L BUN 11 (7-18) mg/dl Creatinine 1.25 H (0.6-1.2) mg/dl Glucose 127 H (70-99) mg/dl Calcium 9.4 (8.5-10.1) mg/dl Intake and Output 06/18/20 06/19/20 06/19/20 22:59 06:59 14:59 Intake Total 800 / 800 Output Total 200 / 600 400 / 600 Balance 600 / 200 -400 / 200 Intake: IV 200 / 200 CIPRO / D5W 400 mg In 200 ml @ 200 / 200 100 mls/hr IV PREOP [facility] Rx#: [id number] IV Perioperative 500 / 500 Oral 100 / 100 Output: Urine 200 / 600 400 / 600 Other: Other Intake Source SIPS Weight 87.1 kg 87 kg Weight Measurement Method Built in [facility]
--- NOTE | 2020-06-19 16:04 | Discharge Summary ---
Date of Service June 19, 2020 Admission HPI Per Admitting Provider 80yo F w/ hx of MS, HTN, ILD, CAD, and blindness who presents with fall and left thigh hematoma. The patient reports that she had used the restroom and was walking back to her bed. She has a stool that she uses to get into bed because it is high. She reports that "everything disappeared" and she fell backwards onto her left side and struck her head. She does feel she passed out during this episode, though she is not sure how long she was unconscious for. Upon awaking, she had pain in the left hip area. Reports no fevers/chills, chest pain, shortness of breath, abdominal pain, nausea, or vomiting. Principal Diagnosis Left hip hematoma Kidney stones Discharge Exam Constitutional WD/WN, vitals as above Eyes EOM intact bilaterally; no conjunctival abnormality ENMT external ear and nose normal, oropharynx normal Neck trachea midline, no thyromegaly normal visual inspection Respiratory normal respiratory effort, lungs clear to auscultation no respiratory distress Cardiovascular RRR, no murmur, no edema Gastrointestinal (Abdomen) Inspection/Auscultation: abdomen normal to inspection; abdomen not distended Musculoskeletal no cyanosis or clubbing, extremities motor strength 5/5 Extremities: + extremities abnormal to inspection (Left thigh hematoma) Skin no rashes, warm and dry Neurologic moves all extremities and awake Psychiatric Orientation: alert, oriented to person and cooperative Discharge Data Allergies Allergy/AdvReac Type Severity Reaction Status Date / Time allopurinol Allergy Unknown COUGH Verified 06/12/20 17:31 blue dye Allergy Unknown BRILLIANT Verified 06/12/20 17:31 BLUE FCF dimethyl fumarate Allergy Unknown UNKNOWN Verified 06/12/20 17:31 Consultations 06/12/20 17:02 ED Decision to Admit Stat 06/12/20 23:35 Consult Cardiology Routine 06/14/20 17:28 Consult Urology Routine 06/17/20 09:34 Consult Anesthesiology Routine Procedures Performed Operation Date: 06/18/20 10:20 Actual Procedures p Cystoscopy, Right Ureteroscopy, Right Ureteral Dilation, Right Stent Exchange, Right Basket Stone Extraction - Fletcher Guallpa, Ordered Studies 06/12/20 14:36 CT head/brain wo con Stat CT hip LT wo con Stat 06/13/20 08:00 CT head/brain wo con Routine 06/18/20 FL retrograde includes kub Routine Hospital Course (1) Right ureteral stone: Multiple recent admissions with UTI. Presently has a right-sided ureteral stent to be removed in 4-6 weeks. - Monitor urine culture from 06/14 - Growing Nuris albicans/dubliniesis again (multiple cultures with this). - Stones removed on 06/18 with temporary stent placed. This was removed prior to discharge. - Given no indication of active funguria, stopped fluconazole on discharge. She is already on amiodarone and concern for QTc prolongation without benefit. - Follow up with urology in the clinic. (2) Hematoma of left thigh: Traumatic due to falling back on her left side out of bed. - Hgb slightly below baseline of 8-10, at 7.5 today. - Patient's INR reversed in ED - Now 1.2. - Discussed with Dr. Jacobson; for her afib, she is now in sinus rhythm from the amiodarone. For her hx of DVTs, this is quite remote. At present risks > benefits from anticoagulation. Patient and were in agreement with holding the warfarin. This certainly raises the risk of DVT, but providers and patient in agreement that right now this is appropriate. If hgb remains stable and she doesn't have further falls (and can stop either ASA or Plavix), could re-assess at that time. (3) Anemia: Baseline hgb ~8-9. Due to CKD/chronic disease and now due to acute blood loss anemia. - On admission, down to 7.8; now 7.5. - Transfuse for hgb > 7; none on discharge. (4) Syncope: Unclear etiology as the patient cannot give much history. Possibly due to vasovagal vs. seizure vs. arrythmia. - Monitor on telemetry - Monitor for seizure - None so far (5) CAD (coronary artery disease): Recent NSTEMI with troponin up to 7.9. Cath on 05/27 with bare metal stent to the LAD. Given recent stent, CANNOT stop DAPT unless cardiology approves. - Continue ASA/Plavix - Continue beta-silvia, statin - Cardiology consulted to weigh in on DAPT - Appreciate recs. For now will continue. If risks>benefits in the near future, could consider pausing, but continue at present. (6) Hypertension: BP is 160/80 in the ED. Now at 115/75. - Continue beta-silvia, Imdur (7) DM type 2 (diabetes mellitus, type 2): A1c was 6.8% in 05/2020. - Hold home oral meds - Sliding scale insulin - Overall in good range in last 24 hours. (8) Chronic diastolic heart failure: No indication of volume overload at present. - Monitor (9) Interstitial lung disease: Noted. - Continue O2 as needed (10) Multiple sclerosis: Follows with Dr. Pierce. - No inpatient needs (11) Seizure disorder: Unclear if loss of consciousness is seizure, as no corroborating witnesses to her fall. - Continue carbamazepine - Monitor for any seizure activity -> Consider neurology consult if so (12) Hypothyroidism: TSH was 4.8 in 05/2020. No signs/symptoms of hypo-/hyperthyroidism. - Continue home Synthroid 100 mcg (13) CKD (chronic kidney disease), stage III: Baseline Cr about 1.3 to 1.5. - Cr is 1.25 today. At baseline. - Monitor (14) Legally blind: Noted (15) Paroxysmal atrial fibrillation: In normal sinus on presentation. - Continue beta-silvia - Monitor INR (16) Essential tremor: Noted on exam today in the ED. - Continue beta-silvia (17) DVT prophylaxis: SCDs DNR/DNI - Confirmed with the patient. Total Time Total Time Spent Total Time Spent (In Minutes): 35 Discharge Plan Discharge Items Patient Disposition: Home - Home Health Services Reason For Visit: FALL HEMATOMA Discharge Diagnosis: Hematoma after a fall Urinary issues Activity: Resume your previous activity Non-emergency contact: Primary Care Provider, Sanitary Engineer and Urologist Call non-emergency contact if: your symptoms worsen Follow-up/Referrals: Fletcher Guallpa DO [Physician] - (Please call the urology office to make a follow-up appointment.) Kike Jacobson DO [Sanitary Engineer] - (Please call the cardiology office to make a follow-up appointment.) Chris Reis PA-C [Primary Care Provider] - (Please call and schedule an appt with your PCP) Diet: Carb Consistent or DM2 and Heart Healthy Addtl Attending Provider Instructions: Ms. Muhammad, You were admitted after a fall at home that caused a big bruise on your left thigh. This was due to being on the aspirin, Plavix, and warfarin all at once. We stopped the warfarin, and the thigh is slowly improving. Please STOP your warfarin all together in hopes of not having any further bleeding. Please CONTINUE your aspirin and Plavix because these help keep your stent open and your heart happy. Please follow up with Dr. Jacobson in the office in 2 weeks to be sure you are doing well. While you were in the hospital, the urology team was able to break up and remove 3 small stones. You had a new stent, but this was removed before you were discharged. Please follow up with Dr. Guallpa in the office in a few weeks. Pending Studies at Discharge: No Stand-Alone Forms: My [facility] [employer], Smoking Cessation Medications and DC Order Prescriptions: New metoprolol succinate 25 mg Tablet Extended Release 24 Hr 25 mg PO QAM Qty: 1 RF: 0 Continued fentanyl 25 mcg/hr patch 72 hour 1 patch TD .COMPLEX RF: 0 biotin 5 mg tablet 5 tab PO DAILY RF: 0 aspirin 81 mg tablet,delayed release (DR/EC) 81 mg PO DAILY RF: 0 pioglitazone 15 mg tablet 15 mg PO DAILY RF: 0 buspirone 10 mg tablet 10 mg PO BID PRN (Reason: Anxiety) RF: 0 carbamazepine 200 mg tablet 200 mg PO DAILY RF: 0 glipizide 10 mg tablet 10 mg PO BID RF: 0 levothyroxine [Synthroid] 100 mcg tablet 100 mcg PO DAILY RF: 0 lorazepam 0.5 mg tablet 0.5 mg PO DAILY PRN (Reason: Anxiety) RF: 0 Trulicity 1.5 mg/0.5 mL pen injector 0 mg SQ WEEKLY RF: 0 metformin 500 mg tablet 500 mg PO QAM RF: 0 nitroglycerin 0.4 mg tablet, sublingual 0.4 mg SL Q5M PRN (Reason: Chest Pain) RF: 0 gabapentin 800 mg tablet 800 mg PO TID Qty: 270 RF: 3 senna 8.6 mg Capsule 8.6 mg PO BID PRN (Reason: Constipation) RF: 0 acetaminophen [Tylenol] 325 mg Tablet 650 mg PO Q6 PRN (Reason: Pain) RF: 0 folic acid 400 mcg Tablet 0.4 mg PO DAILY RF: 0 ergocalciferol (vitamin D2) [Vitamin D2] 1,250 mcg (50,000 unit) Capsule 1,250 mcg PO WK RF: 0 potassium chloride [Klor-Con M10] 10 mEq Tablet,Er Particles/Crystals 10 meq PO DAILY PRN (Reason: WHEN TAKES LASIX.) RF: 0 diclofenac sodium 1 % Gel 2 g TOPICAL QID PRN (Reason: Pain) RF: 0 amiodarone 200 mg tablet 200 mg PO DAILY RF: 0 isosorbide mononitrate 120 mg tablet extended release 24 hr 120 mg PO DAILY RF: 0 rosuvastatin 5 mg tablet 5 mg PO HS RF: 0 furosemide 40 mg tablet 40 mg PO DAILY PRN (Reason: Edema) RF: 0 clopidogrel 75 mg Tablet 75 mg PO QAM Qty: 30 RF: 0 Discontinued propranolol 60 mg capsule,extended release 24 hr 60 mg PO QAM RF: 0 warfarin 4 mg tablet 4 mg PO QPM RF: 0 Discharge Orders: Discharge Order (Routine); Ordered 06/19/20 Ordered By: Joshua Pozo Admission Data Admit Date/Time: 06/12/20 18:52 Attending Provider: Joshua Pozo Admit Provider: Joshua Pozo Primary Care Provider: Chris Reis Other Providers: [facility] ; Joshua Pozo ; Andrea Angela Sheldon D ; Nirmal Salvador ; Jeremi Monroe ; Fei Pozo I. ; Ayan Solis ; Valerie Camacho ; Rachael Francisco ; Fletcher Guallpa ; Bonny Jamil ; Mey Casillas ; Winifred Alfonso ; Kaden Cline ; Abi Hernández ; Radha Rubio ; Geno Nash ; Sonia Phelps ; Meredith Ch ; Sheila Kim ; Lucie Phan ; Deedee Combs ; Duke Hudson ; Giovanni Murphy ; Chuck Lee ; Kristopher Trivedi ; Brook Trivedi ; Eladio Steele ; Winifred Welch ; Tylor Durán ; El Ely ; Simone Bedolla ; Dash Capps ; Stefanie Miller ; Tyrone Madera ; Hui Flores ; Rachael Madera ; Francesco Beard ; Neha Becerra ; George Gutierrez ; Melany Joseph ; Betty Tena ; Neha Abraham. ; Delfina Alfonso ; Jeremi Camacho ; Maggie Lanier ; Lilia Jesus ; Vickie Lan ; Blanka Nazario ; Catracho Nazario V ; Tony Colindres ; Meredith Vick ; Reed Pandya ; John Smith ; Devika Mad[place] ; Millie Pickard ; Catracho Snowden ; Camilo Miller ; Enzo Sibley ; Delilah Guallpa ; Vickie Escoto ; Chuck Roberts ; Shari Key ; Kike Ceja ; Mike Capps ; Monica Arroyo ; Ayan Faith ; Juan Lobo ; Arun Wang ; Juanito Bowman ; Rachael Blair Other Interventions: Discharge Summary Assessment (RN) Last Done: 06/19/20 14:56 Coding Level of Care Code D/C Day Management >30 mins Diagnoses Right ureteral stone N20.1 Hematoma of left thigh S70.12XA Anemia D64.9 Anemia type: unspecified type Syncope R55 Syncope type: unspecified CAD (coronary artery disease) I25.119 Coronary Disease-Associated Artery/Lesion type: [place] artery [place] vs. transplanted heart: [place] heart Associated angina: with unspecified angina Hypertension I10 Hypertension type: essential hypertension DM type 2 (diabetes mellitus, type 2) E11.69 Diabetes mellitus assisted insulin use: without assisted use Diabetes mellitus complication status: with other specified complication Chronic diastolic heart failure I50.32 Interstitial lung disease J84.9 Multiple sclerosis G35 Seizure disorder G40.909 Hypothyroidism E03.9 Hypothyroidism type: acquired CKD (chronic kidney disease), stage III N18.3 Legally blind H54.8 Paroxysmal atrial fibrillation I48.0 Essential tremor G25.0 DVT prophylaxis Z29.9
[2020-06-23 01:20] LABS: Component 2 DNR; Source RIGHT URETER STONE
== END 2020-06-19 15:07 | disposition home health service (06) | DRG 660 ==
LOC: ED 14:05 → 2W 18:52 → SUATTDRO 18:52 → 2W 22:56

== ENCOUNTER 2020-07-15 17:52 | Inpatient (IN) ==
[2020-07-15] MEDS ORDERED: ONDANSETRON INJ 2 MG/ML 2 ML VIAL IV STA ×2 (18:06→20:34)
[2020-07-15] MEDS ORDERED: SODIUM CHLORIDE 0.9% 1000ML 1,000 ML IV SCH (18:15)
[2020-07-15 18:25] LABS: Basophils # (auto) 0.01 K/uL (0-0.2); Basophils % (auto) 0.1 %; Eosinophils # (auto) 0.05 K/uL (0-0.5); Eosinophils % (auto) 0.6 %; Hematocrit (blood only) 29.6 % (37-47); Hemoglobin 9.6 g/dL (12.0-16.0); Immature Granulocytes # (auto) 0.01 K/uL (0.00-0.02); Immature Granulocytes % (auto) 0.1 %; Lymphocytes % (auto) 7.2 %; Mean Corpuscular Hemoglobin 32.1 pg (25-34); Mean Corpuscular Hgb Conc 32.4 g/dL (32-36); Monocytes # (auto) 0.55 K/uL (0.11-0.59); Monocytes % (auto) 6.6 %; Neutrophils # (auto) 7.09 K/uL (1.4-6.5); Neutrophils % (auto) 85.4 %; Platelet Count 318 K/uL (130-400); RDW Coefficient of Variation 14.7 % (11.5-14.5); RDW Standard Deviation 52.9 fL (36.4-46.3); Red Blood Count 2.99 M/uL (4.2-5.4); White Blood Count 8.31 K/uL (4.8-10.8)
--- NOTE | 2020-07-15 18:26 | XRay Report ---
XR chest 1V portable CLINICAL HISTORY: weakness COMPARISON STUDY: 05/26/2020 FINDINGS: The heart is enlarged. There is marked improvement in the previously described pulmonary ed lindsey/congestive failure. There is no lobar consolidation. There is a trace right pleural effusion. Med iastinum appears less prominent on the current study.[ IMPRESSION: 1. Marked improvement in the previously described bilateral pulmonary airspace opacities, likely seco ndary to resolving congestive failure/pulmonary edema. Trace right pleural effusion. No evidence of l obar consolidation ACT 112: Negative or not required by law. Electronically signed by: Adam Khoury M.D. 07/15/2020 6:24 PM
[2020-07-15 18:34] LABS: INR 0.9 (0.9-1.1); Partial Thromboplastin Ratio 0.8; Partial Thromboplastin Time 21.8 Seconds (21.0-31.0)
[2020-07-15 18:39] LABS: Albumin Level 3.9 gm/dl (3.4-5.0); Calcium 9.6 mg/dl (8.5-10.1); Creatinine Clr Calc Pharmacy 27.6 ml/min; Est GFR (African American) 33.9; Est GFR (Non-African American) 29.2; Magnesium 1.6 mg/dl (1.8-2.4); Potassium 5.7 mmol/L (3.5-5.1)
[2020-07-15 18:49] LABS: Albumin Globulin Ratio 0.9 (0.9-2); Bilirubin,Total 0.5 mg/dl (0.2-1); Globulin 4.5 gm/dl (2.5-4.0); Thyroid Stimulating Hormone 5.18 uIu/ml (0.300-4.500); Total Protein 8.4 gm/dl (6.4-8.2); Troponin I 0.036 ng/ml (0-0.045)
[2020-07-15 19:01] LABS: T4 Free Thyroxine 1.23 ng/dl (0.8-1.6)
--- NOTE | 2020-07-15 19:20 | Emergency Department Note ---
Impression & Plan Fall, Contusion of flank, Vomiting, MARY (acute kidney injury), Acute hyponatremia, Anemia, Acute hyperkalemia ED Provider Note NAME: LAURYN JO AGE: 80 SEX: F : 1940 ARRIVES VIA: Ambulance INFORMANT: Patient, ED PROVIDER(S): Rock Corona DO CHIEF COMPLAINT: Right flank pain HPI: The patient is a 80-year-old female who presented to the emergency department via ambulance for an evaluation of right flank pain. The patient had a fall where she struck her right side. She has ecchymosis over her right flank. She was also complaining of difficulty urinating. She was diagnosed with urinary tract infection by her primary care physician. She was started on an antibiotic but has been unable to take the antibiotic because of nausea vomiting. She denies having any rectal bleeding. She does complain of right-sided chest pain especially with deep breathing. She denies any head injury or loss of consciousness. She denies having any neck pain. The patient states that she been having worsening weakness. Because of the weakness as well as the vomiting she presented to the emergency department via ambulance. She denies having any fever or neck pain. ROS: See above HPI for pertinent positives & negatives. A total of 10 systems reviewed and were otherwise negative. PAST MEDICAL HISTORY: See Below PAST SURGICAL HISTORY: See Below FAMILY HISTORY: See Below SOCIAL HISTORY: See Below HOME MEDICATIONS: See Below ALLERGIES: See Below VITALS: See Below PHYSICAL EXAMINATION: GENERAL: The patient is awake and alert. She is somewhat anxious appearing. EYES: The conjunctivae are clear. The pupils are round and reactive. EARS, NOSE, MOUTH AND THROAT: The nose is without any evidence of any deformity. NECK: The neck is nontender and supple. RESPIRATORY: Normal respiratory effort is noted there is no evidence of wheezing rhonchi or rales CARDIOVASCULAR: Regular rate and rhythm noted there no murmurs rubs or gallops normal S1 normal S2. GASTROINTESTINAL: The abdomen is soft and nondistended. There is right-sided tenderness to palpation. There is ecchymosis over the right flank. BACK: No midline tenderness or or step-off noted range of motion in flexion extension as well as rotation no signs of muscle spasm noted MUSCULOSKELETAL/EXTREMITIES: There is no evidence of gross deformity full range of motion is noted in the hips and shoulders. SKIN: Pedal edema was noted bilaterally. Skin was warm and dry. NEUROLOGIC: Patient is awake alert and oriented x3. Strength was symmetric but diminished. MEDICAL DECISION MAKING: The patient is a 80-year-old female who presented to the emergency department for an evaluation of right-sided abdominal pain and flank pain. The patient has a history of frequent falls. She fell recently sustaining a right sided injury. Since that time she has been having problems with nausea and vomiting. She was started on an antibiotic for presumed urinary tract infection by her primary car e physician but could not tolerate the antibiotic so she was sent to the emergency department for further evaluation. The patient was treated with IV fluids and IV antiemetics. I discussed the patient's laboratory and radiographic studies with her. She was found to have signs of dehydration on la boratory studies but also hyponatremia. On CT scan she may have signs of mesenteric contusion which may explain patient's vomiting but she has no signs of obstruction. I discussed the patient's condition with the on-call [facility] hospitalist. They have agreed to evaluate the patient in the emergency department for further management and disposition. Triage Nursing notes reviewed. Prior medical records reviewed Vital Signs: reviewed and remarkable for elevated blood pressure and bradycardia. Differential diagnosis: Fracture, dislocation, contusion, intra-abdominal, pneumothorax, intrathoracic, intracranial, neurologic, compartment syndrome, rhabdomyolysis, as well as other pathologies. ER treatment provided: See below Diagnostics interpreted by me: ECG: EKG was obtained in the emergency department. My interpretation is sinus bradycardia at 48 bpm. There is a first-degree AV block noted. Inferior and low lateral ST depressions were noted. This was compared to a tracing from June 18, 2020. No significant changes were noted. Cardiac Monitoring: An order was placed for continuous cardiac monitoring. The monitor shows a rate of 58 bpm with sinus bradycardia rhythm. Laboratory studies: As stated above and show below. Imaging studies: See below Consultation(s): I discussed this case with Dr. Keita Past Med/Surg History Medical History (Updated 07/15/20 @ 22:51 by Rock Corona DO) CAD (coronary artery disease) July 2009 -NSTEMI 2009-2 KYLER to circumflex obtuse marginal, 1 KYLER to RCA Carotid artery stenosis CKD (chronic kidney disease), stage III DM type 2 (diabetes mellitus, type 2) Dyslipidemia History of DVT (deep vein thrombosis) Hypertension Hypothyroidism Interstitial lung disease Legally blind Multiple sclerosis Seizure disorder Surgical History History of hysterectomy History of tonsillectomy Hx of cholecystectomy Family History Mother Heart disease Social History Smoking Status: Never smoker Hx Alcohol Use: No Hx Substance Use: No Preferred Language: Turkish Communication Ability: Effective Nerve Specialist Required: No Beliefs That Will Affect Care: None marital status: Current Living Situation: Spouse How many Children do You have: 4 Feels Safe at Home: Yes Assistive Devices: Oxygen - Continuous and Walker Allergies Allergies Allergy/AdvReac Type Severity Reaction Status Date / Time allopurinol Allergy Unknown COUGH Verified 07/15/20 22:15 blue dye Allergy Unknown BRILLIANT Verified 07/15/20 22:15 BLUE FCF dimethyl fumarate Allergy Unknown UNKNOWN Verified 07/15/20 22:15 Home Meds Home Medications Medication Instructions Recorded Confirmed aspirin 81 mg tablet,delayed 81 mg PO DAILY tab 05/25/19 07/15/20 release biotin 5 mg tablet 5 tab PO DAILY tab 05/25/19 07/15/20 pioglitazone 15 mg tablet 15 mg PO DAILY tab 05/25/19 07/15/20 buspirone 10 mg tablet 10 mg PO BID PRN 09/03/19 07/15/20 dulaglutide 1.5 mg/0.5 mL 0 mg SQ WEEKLY ml 09/03/19 07/15/20 subcutaneous pen injector glipizide 10 mg tablet 10 mg PO BID 09/03/19 07/15/20 levothyroxine 100 mcg tablet 100 mcg PO DAILY 09/03/19 07/15/20 lorazepam 0.5 mg tablet 0.5 mg PO DAILY PRN 09/03/19 07/15/20 metformin 500 mg tablet 500 mg PO QAM 09/03/19 07/15/20 nitroglycerin 0.4 mg sublingual 0.4 mg SL Q5M PRN 09/03/19 07/15/20 tablet acetaminophen [Tylenol] 650 mg PO Q6 PRN 09/19/19 07/15/20 ergocalciferol (vitamin D2) 1,250 mcg PO WK 09/19/19 07/15/20 [Vitamin D2] folic acid 0.4 mg PO DAILY 09/19/19 07/15/20 senna 8.6 mg PO BID PRN 09/19/19 07/15/20 furosemide 40 mg PO DAILY PRN 05/13/20 07/15/20 isosorbide mononitrate 120 mg PO DAILY 05/13/20 07/15/20 rosuvastatin 5 mg PO HS 05/13/20 07/15/20 amiodarone 100 mg PO DAILY 06/12/20 07/15/20 diclofenac sodium 2 g TOPICAL QID PRN 06/12/20 07/15/20 potassium chloride [Klor-Con M10] 10 meq PO DAILY PRN 06/12/20 07/15/20 albuterol sulfate 2.5 mg INHALATION Q4H PRN 07/15/20 07/15/20 amlodipine [Norvasc] 10 mg PO DAILY 07/15/20 07/15/20 carbamazepine [Tegretol] 200 mg PO DAILY 07/15/20 07/15/20 docusate sodium 100 mg PO TID 07/15/20 07/15/20 fentanyl [Duragesic] 25 mcg TOPICAL [id number] 07/15/20 07/15/20 lisinopril 5 mg PO DAILY 07/15/20 07/15/20 omeprazole 40 mg PO DAILY 07/15/20 07/15/20 propranolol [Inderal LA] 60 mg PO DAILY 07/15/20 07/15/20 sulfamethoxazole-trimethoprim 1 tab PO BID 07/15/20 07/15/20 vitamin E 1,000 tab PO DAILY 07/15/20 07/15/20 warfarin [Jantoven] 1 mg PO .DAILY UD 07/15/20 07/15/20 Previous Rx's Medication Instructions Recorded gabapentin 800 mg tablet 800 mg PO TID #270 tab 09/03/19 clopidogrel 75 mg PO QAM #30 tab 05/29/20 metoprolol succinate 25 mg PO QAM #1 tab 06/19/20 Results & Data (ED) Vital Signs Vital Signs - 24 hr 07/15/20 18:03 07/15/20 18:10 07/15/20 18:30 Temperature 36.8 C Temperature Source Oral Pulse Rate 48 L 48 L Pulse Rate [Apical] Pulse Rate from SpO2 Sensor 47 L Pulse Rhythm Regular Pulse Strength Normal Respiratory Rate 20 22 Respiratory Effort / Characteristics Non-Labored Spontaneous Respiratory Depth Normal Respiratory Pattern Regular Blood Pressure 145/68 H Blood Pressure [Left Arm] Blood Pressure Mean 93 Blood Pressure Mean [Left Arm] Blood Pressure Position Lying Pulse Oximetry 100 100 Oxygen Delivery Method Nasal Cannula Nasal Cannula Oxygen Flow Rate 3 3 Sepsis Recent Fever Within 48 Hours No Sepsis New/Unexplained Change in Mental Status N/A Sepsis Action Taken by Nursing No Action Required 07/15/20 19:00 07/15/20 19:55 07/15/20 20:01 Temperature Temperature Source Pulse Rate 50 L 50 L Pulse Rate [Apical] 48 L Pulse Rate from SpO2 Sensor 48 L Pulse Rhythm Pulse Strength Respiratory Rate 24 20 20 Respiratory Effort / Characteristics Respiratory Depth Respiratory Pattern Blood Pressure 130/60 Blood Pressure [Left Arm] 128/46 L Blood Pressure Mean 67 Blood Pressure Mean [Left Arm] 73 Blood Pressure Position Pulse Oximetry 95 Oxygen Delivery Method Nasal Cannula Oxygen Flow Rate 3 Sepsis Recent Fever Within 48 Hours Sepsis New/Unexplained Change in Mental Status Sepsis Action Taken by Nursing 07/15/20 20:31 07/15/20 21:00 07/15/20 21:02 Temperature Temperature Source Pulse Rate 61 Pulse Rate [Apical] Pulse Rate from SpO2 Sensor Pulse Rhythm Pulse Strength Respiratory Rate 20 28 H 26 H Respiratory Effort / Characteristics Respiratory Depth Respiratory Pattern Blood Pressure 113/108 H Blood Pressure [Left Arm] Blood Pressure Mean 110 Blood Pressure Mean [Left Arm] Blood Pressure Position Pulse Oximetry Oxygen Delivery Method Oxygen Flow Rate Sepsis Recent Fever Within 48 Hours Sepsis New/Unexplained Change in Mental Status Sepsis Action Taken by Nursing 07/15/20 21:30 07/15/20 21:46 07/15/20 21:47 Temperature Temperature Source Pulse Rate 50 L 50 L Pulse Rate [Apical] 50 L Pulse Rate from SpO2 Sensor Pulse Rhythm Pulse Strength Respiratory Rate 20 20 23 Respiratory Effort / Characteristics Respiratory Depth Respiratory Pattern Blood Pressure 156/87 H Blood Pressure [Left Arm] 156/87 H Blood Pressure Mean 126 Blood Pressure Mean [Left Arm] 110 Blood Pressure Position Pulse Oximetry 97 Oxygen Delivery Method Nasal Cannula Oxygen Flow Rate 3 Sepsis Recent Fever Within 48 Hours Sepsis New/Unexplained Change in Mental Status Sepsis Action Taken by Nursing 07/15/20 22:00 07/15/20 22:01 07/15/20 22:30 Temperature Temperature Source Pulse Rate 50 L 50 L 51 L Pulse Rate [Apical] Pulse Rate from SpO2 Sensor Pulse Rhythm Pulse Strength Respiratory Rate 20 20 17 Respiratory Effort / Characteristics Respiratory Depth Respiratory Pattern Blood Pressure 158/76 H Blood Pressure [Left Arm] Blood Pressure Mean 113 Blood Pressure Mean [Left Arm] Blood Pressure Position Pulse Oximetry Oxygen Delivery Method Oxygen Flow Rate Sepsis Recent Fever Within 48 Hours Sepsis New/Unexplained Change in Mental Status Sepsis Action Taken by [facility] Medications Current Medication List: was personally reviewed by me Laboratory Data Attestation: I reviewed the patient's lab results. Result diagrams: 07/15/20 18:00 07/15/20 18:00 Lab Results 07/15/20 07/15/20 07/15/20 Range/Units 18:00 18:00 18:00 WBC 8.31 (4.8-10.8) K/uL RBC 2.99 L (4.2-5.4) M/uL Hgb 9.6 L (12.0-16.0) g/dL Hct 29.6 L (37-47) % MCV 99.0 (80-100) fL MCH 32.1 (25-34) pg MCHC 32.4 (32-36) g/dL RDW Std Deviation 52.9 H (36.4-46.3) fL RDW Coeff of Gillian 14.7 H (11.5-14.5) % Plt Count 318 (130-400) K/uL MPV 11.0 H (7.4-10.4) fL Immature Gran % (Auto) 0.1 % Neut % (Auto) 85.4 % Lymph % (Auto) 7.2 % Bosque % (Auto) 6.6 % Eos % (Auto) 0.6 % Baso % (Auto) 0.1 % Neut # (Auto) 7.09 H (1.4-6.5) K/uL Lymph # (Auto) 0.60 L (1.2-3.4) K/uL Bosque # (Auto) 0.55 (0.11-0.59) K/uL Eos # (Auto) 0.05 (0-0.5) K/uL Baso # (Auto) 0.01 (0-0.2) K/uL Immature Gran # (Auto) 0.01 (0.00-0.02) K/uL PT 10.0 (9.0-12.0) Seconds INR 0.9 (0.9-1.1) APTT 21.8 (21.0-31.0) Seconds PTT Ratio 0.8 Sodium 128 L (136-145) mmol/L Potassium 5.7 H (3.5-5.1) mmol/L Chloride 97 L (98-107) mmol/L Carbon Dioxide 25 (21-32) mmol/L Anion Gap 6.0 (3-11) BUN 22 H (7-18) mg/dl Creatinine 1.65 H (0.6-1.2) mg/dl Est Cr Clr Drug Dosing 27.6 ml/min Est GFR ( Amer) 33.9 Est GFR (Non-Af Amer) 29.2 BUN/Creatinine Ratio 13.0 (10-20) Glucose 125 H (70-99) mg/dl Calcium 9.6 (8.5-10.1) mg/dl Magnesium 1.6 L (1.8-2.4) mg/dl Total Bilirubin 0.5 (0.2-1) mg/dl AST 17 (15-37) U/L ALT 28 (12-78) U/L Alkaline Phosphatase 65 (45-117) U/L Total Creatine Kinase 70 (26-192) U/L Troponin I 0.036 (0-0.045) ng/ml Total Protein 8.4 H (6.4-8.2) gm/dl Albumin 3.9 (3.4-5.0) gm/dl Globulin 4.5 H (2.5-4.0) gm/dl Albumin/Globulin Ratio 0.9 (0.9-2) TSH 5.180 H (0.300-4.500) uIu/ml Free T4 1.23 (0.8-1.6) ng/dl Urine Color Urine Appearance (Clear) Urine pH (4.5-7.5) Ur Specific Monument (1.000-1.030) Urine Protein (Negative) Urine Glucose (UA) (Negative) Urine Ketones (Negative) Urine Blood (Negative) Urine Nitrite (Negative) Urine Bilirubin (Negative) Urine Urobilinogen (Negative) Ur Leukocyte Esterase (Negative) Urine WBC (Auto) (0-5) /hpf Urine RBC (Auto) (0-4) /hpf U Hyaline Cast (Auto) (0-5) /lpf U Epithel Cells (Auto) (0-5) /lpf Urine Bacteria (Auto) (Negative) Ur Renal Epithelial Cell Calcium Oxalate Crystal (None Prsent) Carbamazepine (4-12) mcg/ml 07/15/20 07/15/20 Range/Units 18:00 21:28 WBC (4.8-10.8) K/uL RBC (4.2-5.4) M/uL Hgb (12.0-16.0) g/dL Hct (37-47) % MCV (80-100) fL MCH (25-34) pg MCHC (32-36) g/dL RDW Std Deviation (36.4-46.3) fL RDW Coeff of Gillian (11.5-14.5) % Plt Count (130-400) K/uL MPV (7.4-10.4) fL Immature Gran % (Auto) % Neut % (Auto) % Lymph % (Auto) % Bosque % (Auto) % Eos % (Auto) % Baso % (Auto) % Neut # (Auto) (1.4-6.5) K/uL Lymph # (Auto) (1.2-3.4) K/uL Bosque # (Auto) (0.11-0.59) K/uL Eos # (Auto) (0-0.5) K/uL Baso # (Auto) (0-0.2) K/uL Immature Gran # (Auto) (0.00-0.02) K/uL PT (9.0-12.0) Seconds INR (0.9-1.1) APTT (21.0-31.0) Seconds PTT Ratio Sodium (136-145) mmol/L Potassium (3.5-5.1) mmol/L Chloride (98-107) mmol/L Carbon Dioxide (21-32) mmol/L Anion Gap (3-11) BUN (7-18) mg/dl Creatinine (0.6-1.2) mg/dl Est Cr Clr Drug Dosing ml/min Est GFR ( Amer) Est GFR (Non-Af Amer) BUN/Creatinine Ratio (10-20) Glucose (70-99) mg/dl Calcium (8.5-10.1) mg/dl Magnesium (1.8-2.4) mg/dl Total Bilirubin (0.2-1) mg/dl AST (15-37) U/L ALT (12-78) U/L Alkaline Phosphatase (45-117) U/L Total Creatine Kinase (26-192) U/L Troponin I (0-0.045) ng/ml Total Protein (6.4-8.2) gm/dl Albumin (3.4-5.0) gm/dl Globulin (2.5-4.0) gm/dl Albumin/Globulin Ratio (0.9-2) TSH (0.300-4.500) uIu/ml Free T4 (0.8-1.6) ng/dl Urine Color Dark Yellow Urine Appearance Clear (Clear) Urine pH 5.0 (4.5-7.5) Ur Specific Monument 1.026 (1.000-1.030) Urine Protein Trace H (Negative) Urine Glucose (UA) Negative (Negative) Urine Ketones Trace H (Negative) Urine Blood Negative (Negative) Urine Nitrite Negative (Negative) Urine Bilirubin Negative (Negative) Urine Urobilinogen Negative (Negative) Ur Leukocyte Esterase Trace H (Negative) Urine WBC (Auto) 1-5 (0-5) /hpf Urine RBC (Auto) 0-4 (0-4) /hpf U Hyaline Cast (Auto) 1-5 (0-5) /lpf U Epithel Cells (Auto) >30 H (0-5) /lpf Urine Bacteria (Auto) Negative (Negative) Ur Renal Epithelial Cell Not Reportable Calcium Oxalate Crystal Present A (None Prsent) Carbamazepine 12.0 (4-12) mcg/ml Administered Medications Discontinued Medications Sodium Chloride (Nss 1000ml) 1,000 mls @ 999 mls/hr IV .Q1H1M NATHANIEL Stop: 07/15/20 19:15 Last Infusion: 07/15/20 19:38 Dose: 0 mls/hr Documented by: [id number] Admin: 07/15/20 18:37 Dose: 999 mls/hr Documented by: [id number] Sodium Chloride (Nss 1000ml) 500 mls @ 999 mls/hr IV .Q31M ONE Stop: 07/15/20 21:23 Last Infusion: 07/15/20 21:31 Dose: 0 mls/hr Documented by: [id number] Admin: 07/15/20 21:00 Dose: 999 mls/hr Documented by: [id number] Ondansetron HCl (Ondansetron Inj 2 Mg/Ml 2 Ml Vial) 4 mg IV NOW STA Stop: 07/15/20 18:07 Last Admin: 07/15/20 18:37 Dose: 4 mg Documented by: [id number] Ondansetron HCl (Ondansetron Inj 2 Mg/Ml 2 Ml Vial) 4 mg IV NOW STA Stop: 07/15/20 20:35 Last Admin: 07/15/20 20:42 Dose: 4 mg Documented by: [id number] Imaging Data Radiologist's Impression: Patient: LAURYN JO Admit Date: 07/15/20 MR#: [id number] Address1: [address] Acct ID:[id number] Address2: Date: 1940 [facility] Zip: [place] [id number] Age: 80 Location: ED Sex: F Room/Bed: Att Phy: Diagnosis: RIGHT SIDE PAIN, NAUSEA, VOMITING Karlee Phy: Chris Reis PA-C Service Date: 07/15/20 Fam Phy: Chris Reis PA-C Interpreting Phy: Adma Khoury MD Admit Phy: Ordering Phy: Rock Corona DO cc: ~ CT head/brain wo con CLINICAL HISTORY: Trauma COMPARISON STUDY: 06/13/2020 TECHNIQUE: Axial CT of the brain is performed from the vertex to the skull base. IV contrast was not administered for this examination. A dose lowering karthik hnique was utilized adhering to the principles of ALARA. CT DOSE: FINDINGS: No intra or extra-axial mass lesions are visualized. There is no CT evidence of acute cortical infarction. There is no evidence of midline shift. There is no acute hemorrhage. No calvarial fractures are visualized. There are moderate white matter hypodensities likely on a small vessel basis. 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 There is no evidence of pathologic ventricular dilatation. There is a small chronic left mastoid effusion. IMPRESSION: No acute intracranial findings ACT 112: Negative or not required by law. Electronically signed by: Adam Khoury M.D. 07/15/2020 7:49 PM Dictated: 07/15/201946 Transcribed: 07/15/201947 Patient: LAURYN JO Admit Date: 07/15/20 MR#: [id number] Address1: [address] Acct ID:[id number] Address2: Date: 1940 [facility] Zip: [place] Age: 80 Location: ED Sex: F Room/Bed: Att Phy: Diagnosis: RIGHT SIDE PAIN, NAUSEA, VOMITING Karlee Phy: Chris Reis PA-C Service Date: 07/15/20 Fam Phy: Chris Reis PA-C Interpreting Phy: Adam Khoury MD Admit Phy: Ordering Phy: Rock Corona DO cc: ~ CT chest wo con CLINICAL HISTORY: Right-sided chest pain. Trauma. COMPARISON STUDY: May 2015 CT DOSE: TECHNIQUE: CT of the thorax was performed from the thoracic inlet to the lung bases. Images are reviewed in the axial, sagittal, and coronal planes. IV contrast was not administered for this examination. A dose lowering technique was utilized adhering to the principles of ALARA. FINDINGS: Thyroid: Imaged portions of the thyroid gland are normal in appearance. Thoracic aorta: The thoracic aorta is normal in course and caliber, noting standard 3 vessel arch anatomy. Heart: There are coronary artery calcifications. There is borderline dilatation of main pulmonary artery segment. Lungs and pleural spaces: There are small bilateral pleural effusions. There is mild septal edema. There are groundglass pulmonary opacities with a mosaic distribution. This likely represents pulmonary edema the setting of airway disease. There is mild lower lobe bronchial wall thickening. Mediastinum: There are mildly enlarged mediastinal lymph nodes measuring up to 12 mm in short axis. Cari: Hilar lymph nodes are felt to be the upper limits of normal in size Axilla: There is no evidence of pathologic axillary lymphadenopathy Upper abdomen: The gallbladder appears surgically absent. Skeletal structures: No acute fractures are visualized. IMPRESSION: 1. No evidence of acute intrathoracic injury given the limitations of a noncontrast study 2. Cardiomegaly, small bilateral pleural effusions, coronary artery calcifications. 3. Bilateral groundglass pulmonary opacities with mild septal edema. The findings likely represent mild cardiogenic pulmonary edema. 4. Mild lower lobe bronchial wall thickening 5. Mild mediastinal lymphadenopathy 6. No acute fractures identified. ACT 112: Negative or not required by law. Electronically signed by: Adam Khoury M.D. 07/15/2020 7:58 PM Dictated: 07/15/201953 Transcribed: 07/15/201953 Patient: LAURYN JO Admit Date: 07/15/20 MR#: [id number] Address1: [address] Acct ID:[id number] Address2: Date: 1940 [facility] Zip: [place] [address] Age: 80 Location: ED Sex: F Room/Bed: Att Phy: Diagnosis: RIGHT SIDE PAIN, NAUSEA, VOMITING Karlee Phy: Chris Reis PA-C Service Date: 07/15/20 Fam Phy: Chris Reis PA-C Interpreting Phy: Adam Khoury MD Admit Phy: Ordering Phy: Rock Corona DO cc: ~ CT OF THE CERVICAL SPINE CLINICAL HISTORY: Neck pain status post trauma COMPARISON STUDY: MRI performed March 2020 CT DOSE: TECHNIQUE: CT scan of the cervical spine was performed from the skull base to the thoracic inlet. Images are reviewed in the axial, sagittal, and coronal planes. IV contrast was not administered for this examination. A dose lowering technique was utilized adhering to the principles of ALARA. FINDINGS: There is no apical pneumothorax. There are groundglass apical opacities with a mosaic distribution. There is a left mastoid effusion The prevertebral soft tissues are normal. No fractures or subluxations are visualized. There are multilevel degenerative changes IMPRESSION: 1. No acute fractures or traumatic subluxations identified 2. Left mastoid effusion 3. Biapical pulmonary groundglass opacities with a mosaic distribution ACT 112: Negative or not required by law. Electronically signed by: Adam Khoury M.D. 07/15/2020 7:54 PM Dictated: 07/15/201949 Transcribed: 07/15/201951 Patient: LAURYN JO Admit Date: 07/15/20 MR#: [id number] Address1: [address] Acct ID:[id number] Address2: Date: 1940 [facility] Zip: [place] [address] Age: 80 Location: ED Sex: F Room/Bed: Att Phy: Diagnosis: RIGHT SIDE PAIN, NAUSEA, VOMITING Karlee Phy: Chris Reis PA-C Service Date: 07/15/20 [facility] Phy: Interpreting Phy: Adam Khoury MD Admit Phy: Ordering Phy: Rock Corona DO cc: ~ XR chest 1V portable CLINICAL HISTORY: weakness COMPARISON STUDY: 05/26/2020 FINDINGS: The heart is enlarged. There is marked improvement in the previously described pulmonary edema/congestive failure. There is no lobar consolidation. There is a trace right pleural effusion. Mediastinum appears less prominent on the current study.[ IMPRESSION: 1. Marked improvement in the previously described bilateral pulmonary airspace opacities, likely secondary to resolving congestive failure/pulmonary edema. Trace right pleural effusion. No evidence of lobar consolidation ACT 112: Negative or not required by law. Electronically signed by: Adam Khoury M.D. 07/15/2020 6:24 PM Dictated: 07/15/201822 Transcribed: 07/15/201822 Patient: LAURYN JO Admit Date: 07/15/20 MR#: [id number] Address1: [facility] [address] Acct ID:[id number] Address2: Date: 1940 [facility] Zip: [place] [address] Age: 80 Location: ED Sex: F Room/Bed: Att Phy: Diagnosis: RIGHT SIDE PAIN, NAUSEA, VOMITING Karlee Phy: Chris Reis PA-C Service Date: 07/15/20 [facility] Phy: Chris Reis PA-C Interpreting Phy: Adam Khoury MD Admit Phy: Ordering Phy: Rock Corona DO cc: ~ CT SCAN OF THE ABDOMEN AND PELVIS WITHOUT CONTRAST CLINICAL HISTORY: Abdominal pain status post trauma. History of renal infection. COMPARISON STUDY: May 26, 2020 TECHNIQUE: CT scan of the abdomen and pelvis was performed from the lung bases to the proximal femurs. Images are reviewed in the axial, sagittal, and coronal planes. IV contrast was not administered for this examination. A dose lowering technique was utilized adhering to the principles of ALARA. CT DOSE: FINDINGS: Lower chest: There are coronary artery calcifications. There are small bilateral pleural effusions. There is basilar atelectasis. There is mild septal edema. Liver: The unenhanced liver is normal in size, contour, and attenuation. There is no intrahepatic biliary ductal dilatation. Gallbladder: Surgically absent Spleen: Normal in size and attenuation. Pancreas: Unremarkable. Adrenal glands: Unremarkable. Kidneys: There is a nonobstructing 2 mm left renal calculus. There is no hydron ephrosis. No ureteral or bladder calculi are visualized. Bowel: There are no transition zones to indicate bowel obstruction. There is no evidence of acute diverticulitis. By history the appendix is surgically absent. There are no extraluminal gas collections. There is mild focal mesenteric edema adjacent to left mid abdominal small bowel loops. Close clinical follow-up is advocated given the history of trauma. Peritoneum: There is trace free pelvic fluid. There is no free intraperitoneal air. Vasculature: The abdominal aorta is normal in course and caliber. Adenopathy: None. Pelvic viscera: The uterus appears surgically absent. Skeletal structures: No fractures are visualized. IMPRESSION: 1. Mild focal mesenteric edema adjacent to left mid abdominal small bowel loops. This is a very nonspecific finding but in the setting of trauma, one cannot exclude a mesenteric injury. Clinical follow-up will be necessary 2. No evidence of bowel obstruction. No evidence of free air 3. Nonobstructing left renal calculus 4. No fractures identified 5. Small bilateral pleural effusions. Basilar septal edema. ACT 112: Negative or not required by law. Electronically signed by: Adam Khoury M.D. 07/15/2020 8:05 PM Dictated: 07/15/201957 Transcribed: 07/15/201957 Blood Pressure Blood Pressure Findings: Elevated blood pressure Blood Pressure Disposition: further management by hospitalist Discharge Plan Visit Data Chief Complaint: Abdominal Pain Stated Complaint: RIGHT SIDE PAIN, NAUSEA, VOMITING ED Provider: Rock Corona Discharge Problem: Fall, Contusion of flank, Vomiting, MARY (acute kidney injury), Acute hyponatremia, Anemia, Acute hyperkalemia Patient Disposition: Being Evaluated by Hospitalist Condition: Good Forms Stand Alone Forms: My [facility] Nephros Prescriptions Prescriptions: No Action biotin 5 mg tablet 5 tab PO DAILY RF: 0 aspirin 81 mg tablet,delayed release (DR/EC) 81 mg PO DAILY RF: 0 pioglitazone 15 mg tablet 15 mg PO DAILY RF: 0 buspirone 10 mg tablet 10 mg PO BID PRN (Reason: Anxiety) RF: 0 glipizide 10 mg tablet 10 mg PO BID RF: 0 levothyroxine [Synthroid] 100 mcg tablet 100 mcg PO DAILY RF: 0 lorazepam 0.5 mg tablet 0.5 mg PO DAILY PRN (Reason: Anxiety) RF: 0 Trulicity 1.5 mg/0.5 mL pen injector 0 mg SQ WEEKLY RF: 0 metformin 500 mg tablet 500 mg PO QAM RF: 0 nitroglycerin 0.4 mg tablet, sublingual 0.4 mg SL Q5M PRN (Reason: Chest Pain) RF: 0 gabapentin 800 mg tablet 800 mg PO TID Qty: 270 RF: 3 senna 8.6 mg Capsule 8.6 mg PO BID PRN (Reason: Constipation) RF: 0 acetaminophen [Tylenol] 325 mg Tablet 650 mg PO Q6 PRN (Reason: Pain) RF: 0 folic acid 400 mcg Tablet 0.4 mg PO DAILY RF: 0 ergocalciferol (vitamin D2) [Vitamin D2] 1,250 mcg (50,000 unit) Capsule 1,250 mcg PO WK RF: 0 potassium chloride [Klor-Con M10] 10 mEq Tablet,Er Particles/Crystals 10 meq PO DAILY PRN (Reason: WHEN TAKES LASIX.) RF: 0 diclofenac sodium 1 % Gel 2 g TOPICAL QID PRN (Reason: Pain) RF: 0 amiodarone 200 mg tablet 100 mg PO DAILY RF: 0 metoprolol succinate 25 mg Tablet Extended Release 24 Hr 25 mg PO QAM Qty: 1 RF: 0 isosorbide mononitrate 120 mg tablet extended release 24 hr 120 mg PO DAILY RF: 0 rosuvastatin 5 mg tablet 5 mg PO HS RF: 0 furosemide 40 mg tablet 40 mg PO DAILY PRN (Reason: Edema) RF: 0 clopidogrel 75 mg Tablet 75 mg PO QAM Qty: 30 RF: 0 albuterol sulfate 2.5 mg /3 mL (0.083 %) Solution For Nebulization 2.5 mg INHALATION Q4H PRN (Reason: Shortness Of Breath Or Wheezing) RF: 0 propranolol [Inderal LA] 60 mg capsule,extended release 24 hr 60 mg PO DAILY RF: 0 amlodipine [Norvasc] 5 mg tablet 10 mg PO DAILY RF: 0 sulfamethoxazole-trimethoprim 800-160 mg tablet 1 tab PO BID RF: 0 omeprazole 40 mg capsule,delayed release(DR/EC) 40 mg PO DAILY RF: 0 carbamazepine [Tegretol] 200 mg Tablet 200 mg PO DAILY RF: 0 docusate sodium 100 mg Capsule 100 mg PO TID RF: 0 warfarin [Jantoven] 1 mg Tablet 1 mg PO .DAILY UD RF: 0 fentanyl [Duragesic] 25 mcg/hr patch 72 hour 25 mcg topical [id number] RF: 0 lisinopril 2.5 mg tablet 5 mg PO DAILY RF: 0 vitamin E 1,000 unit Tablet 1,000 tab PO DAILY RF: 0 Referrals Referrals: Chris Reis PA-C [Primary Care Provider] -
--- NOTE | 2020-07-15 19:52 | CT Scan Report ---
CT head/brain wo con CLINICAL HISTORY: Trauma COMPARISON STUDY: 06/13/2020 TECHNIQUE: Axial CT of the brain is performed from the vertex to the skull base. IV contrast was not administered for this examination. A dose lowering technique was utilized adhering to the principles of ALARA. CT DOSE: FINDINGS: No intra or extra-axial mass lesions are visualized. There is no CT evidence of acute cortical infarc tion. There is no evidence of midline shift. There is no acute hemorrhage. No calvarial fractures ar e visualized. There are moderate white matter hypodensities likely on a small vessel basis. There are old basal татьяна glia lacunar infarcts. There is no evidence of pathologic ventricular dilatation. There is a small chronic left mastoid effusion. IMPRESSION: No acute intracranial findings ACT 112: Negative or not required by law. Electronically signed by: Adam Khoury M.D. 07/15/2020 7:49 PM
--- NOTE | 2020-07-15 19:55 | CT Scan Report ---
CT OF THE CERVICAL SPINE CLINICAL HISTORY: Neck pain status post trauma COMPARISON STUDY: MRI performed March 2020 CT DOSE: TECHNIQUE: CT scan of the cervical spine was performed from the skull base to the thoracic inlet. Shawna ges are reviewed in the axial, sagittal, and coronal planes. IV contrast was not administered for thi s examination. A dose lowering technique was utilized adhering to the principles of ALARA. FINDINGS: There is no apical pneumothorax. There are groundglass apical opacities with a mosaic distribution. T here is a left mastoid effusion The prevertebral soft tissues are normal. No fractures or subluxations are visualized. There are multilevel degenerative changes IMPRESSION: 1. No acute fractures or traumatic subluxations identified 2. Left mastoid effusion 3. Biapical pulmonary groundglass opacities with a mosaic distribution ACT 112: Negative or not required by law. Electronically signed by: Adam Khoury M.D. 07/15/2020 7:54 PM
--- NOTE | 2020-07-15 19:59 | CT Scan Report ---
CT chest wo con CLINICAL HISTORY: Right-sided chest pain. Trauma. COMPARISON STUDY: May 2015 CT DOSE: TECHNIQUE: CT of the thorax was performed from the thoracic inlet to the lung bases. Images are revi ewed in the axial, sagittal, and coronal planes. IV contrast was not administered for this examinatio n. A dose lowering technique was utilized adhering to the principles of ALARA. FINDINGS: Thyroid: Imaged portions of the thyroid gland are normal in appearance. Thoracic aorta: The thoracic aorta is normal in course and caliber, noting standard 3 vessel arch jhonathan maria de jesus. Heart: There are coronary artery calcifications. There is borderline dilatation of main pulmonary art valorie segment. Lungs and pleural spaces: There are small bilateral pleural effusions. There is mild septal edema. Th ere are groundglass pulmonary opacities with a mosaic distribution. This likely represents pulmonary edema the setting of airway disease. There is mild lower lobe bronchial wall thickening. Mediastinum: There are mildly enlarged mediastinal lymph nodes measuring up to 12 mm in short axis. Cari: Hilar lymph nodes are felt to be the upper limits of normal in size Axilla: There is no evidence of pathologic axillary lymphadenopathy Upper abdomen: The gallbladder appears surgically absent. Skeletal structures: No acute fractures are visualized. IMPRESSION: 1. No evidence of acute intrathoracic injury given the limitations of a noncontrast study 2. Cardiomegaly, small bilateral pleural effusions, coronary artery calcifications. 3. Bilateral groundglass pulmonary opacities with mild septal edema. The findings likely represent mi ld cardiogenic pulmonary edema. 4. Mild lower lobe bronchial wall thickening 5. Mild mediastinal lymphadenopathy 6. No acute fractures identified. ACT 112: Negative or not required by law. Electronically signed by: Adam Khoury M.D. 07/15/2020 7:58 PM
--- NOTE | 2020-07-15 20:06 | CT Scan Report ---
CT SCAN OF THE ABDOMEN AND PELVIS WITHOUT CONTRAST CLINICAL HISTORY: Abdominal pain status post trauma. History of renal infection. COMPARISON STUDY: May 26, 2020 TECHNIQUE: CT scan of the abdomen and pelvis was performed from the lung bases to the proximal femurs . Images are reviewed in the axial, sagittal, and coronal planes. IV contrast was not administered fo r this examination. A dose lowering technique was utilized adhering to the principles of ALARA. CT DOSE: FINDINGS: Lower chest: There are coronary artery calcifications. There are small bilateral pleural effusions. T here is basilar atelectasis. There is mild septal edema. Liver: The unenhanced liver is normal in size, contour, and attenuation. There is no intrahepatic page iary ductal dilatation. Gallbladder: Surgically absent Spleen: Normal in size and attenuation. Pancreas: Unremarkable. Adrenal glands: Unremarkable. Kidneys: There is a nonobstructing 2 mm left renal calculus. There is no hydronephrosis. No ureteral or bladder calculi are visualized. Bowel: There are no transition zones to indicate bowel obstruction. There is no evidence of acute div erticulitis. By history the appendix is surgically absent. There are no extraluminal gas collections. There is mild focal mesenteric edema adjacent to left mid abdominal small bowel loops. Close clinica l follow-up is advocated given the history of trauma. Peritoneum: There is trace free pelvic fluid. There is no free intraperitoneal air. Vasculature: The abdominal aorta is normal in course and caliber. Adenopathy: None. Pelvic viscera: The uterus appears surgically absent. Skeletal structures: No fractures are visualized. IMPRESSION: 1. Mild focal mesenteric edema adjacent to left mid abdominal small bowel loops. This is a very nonsp ecific finding but in the setting of trauma, one cannot exclude a mesenteric injury. Clinical follow- up will be necessary 2. No evidence of bowel obstruction. No evidence of free air 3. Nonobstructing left renal calculus 4. No fractures identified 5. Small bilateral pleural effusions. Basilar septal edema. ACT 112: Negative or not required by law. Electronically signed by: Adam Khoury M.D. 07/15/2020 8:05 PM
[2020-07-15] MEDS ORDERED: SODIUM CHLORIDE 0.9% 1000ML 500 ML IV ONE (20:53)
[2020-07-15 21:47] LABS: Appearance Urine Clear (Clear); Bacteria Urine Automated Negative (Negative); Blood Urine Negative (Negative); Color Urine Dark Yellow; Epithelial Cell Urine Auto >30 /lpf (0-5); Glucose Urine UA Negative (Negative); Ketones Urine Trace (Negative); Leukocyte Esterase Urine Trace (Negative); Nitrite Urine Negative (Negative); Protein Urine Trace (Negative); RBC Urine Automated 0-4 /hpf (0-4); Specific Gravity Urine 1.026 (1.000-1.030); Urobilinogen Urine Negative (Negative)
[2020-07-15 21:55] LABS: Bilirubin Urine Negative (Negative); Ictotest Urine Negative (Negative)
[2020-07-15 22:22] LABS: Calcium Oxalate Crystals Urine Present (None Prsent)
--- NOTE | 2020-07-15 23:39 | History & Physical Report ---
Date of Service July 15, 2020 Assessment & Plan (1) Fall: (2) Contusion of flank: (3) Vomiting: Luisana Muhammad is a 80-year-old female with past medical history of recurrent falls, anemia, supratherapeutic INR, CVA, chronic diastolic heart failure, CKD, A. 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 Nausea/vomiting -No leukocytosis CTA: Mild focal mesenteric edema adjacent to left mid abdominal small bowel loops. This is a very nonspecific finding but in the setting of trauma, cannot exclude a mesenteric injury. No evidence of bowel obstruction. No evidence of free air Nonobstructing left renal calculus No fractures identified Small bilateral pleural effusions. Basilar septal edema. 4 to 5 days of constipation Denies prior illness Patient is hemodynamically stable at time of assessment. No signs of advanced ischemia or free air in the abdomen. Continue fluid therapy, serial exams, Zofran as needed. If clinical suspicion arises for intestinal ischemia without obvious peritoneal bleed may follow-up with mesenteric arteriogram and consult. CTcontrast deferred in the setting of MARY -Clear liquid diet Fall - 3 prior admission - Hgb stable, hematoma present without acute bleeding. CT with no evidence of intraabdominal bleeding. 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 Patient reports she is able to feel sensation in her feet, but is unable to correctly localize hallux proprioception. Hold oral antiglycemic's Insulin glargine 8u BID Insulin aspart ratio 15, CF 60 Glucose checks AC/at bedtime BMP daily CAD with chronic diastolic heart failure Metoprolol 25 mg p.o. every morning Lisinopril 5 mg p.o. daily held Aspirin 81 mg daily Rosuvastatin 5 mg p.o. nightly Isosorbide mononitrate 120 mg p.o. daily Lasix held for MARY A. fib Pt stopped on coumadin due to multiple falls and was told she was switched to Plaavix for ppx. Amlodipine, metoprolol as otherwise noted above Continue amiodarone 100 mg p.o. daily Hypertension Amlodipine milligrams daily Aspirin as above Lisinopril as above Metoprolol as above Dysuria Patient reports that she had a positive UA indicative of a urinary tract infection at her PCPs last week, and was prescribed antibiotics but has not been able to take them due to nausea and vomiting. She does not recall the name of the antibiotic she was prescribed. UA on admission shows trace ketones, trace leukocyte esterase, epithelial cells, no bacteria, and calcium oxalate crystals Patient had stone removal 1 month ago GERD Convert omeprazole to Protonix 40 mg daily Covid assessment: Patient with nausea/vomiting following a fall. She denies fever, chills, sweats, shortness of breath, difficulty breathing, change in sense of taste or smell, exposure to Covid positive person or PUI. She had a negative Covid test 1 month ago. Dry cough in AM. Repeat COVID ordered. DVT: SQ heparin Dispo: [facility] Diet: HH/DM CODE: DNR/DNI (4) MARY (acute kidney injury): (5) Acute hyponatremia: (6) Anemia: (7) Hematoma of left hip: (8) Paroxysmal atrial fibrillation: (9) NSTEMI (non-ST elevated myocardial infarction): (10) Right ureteral stone: History of Present Illness Chief Complaint: Falls, pain Primary Care Provider: Chris Reis Luisana Muhammad is a 80-year-old female with past medical history of recurrent falls, anemia, supratherapeutic INR, CVA, chronic diastolic heart failure, CKD, A. 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 Patient reports that she has regular recurrent falls several times a week. She feels that she has had more falls in the last week, and has felt globally weak for 2-1/2 weeks. She was seen as an outpatient for difficulty urinating and was diagnosed with a urinary tract infection for which she was prescribed antibiotics, but which she did not take because she had a fall to her right side with ecchymoses and subsequent onset of nausea and vomiting. She reports that she fell 4 days ago (Tuesday) and had pain in her right abdomen across to the left abdomen. She has an overlying bruise. She reports she is not sure why she fell, but notes it is not uncommon for her. She reports she is blind at baseline due to diabetic complications and can only see shadows and lights. She lives in a 1 floor flume with her and 2 grandchildren. She denies prior illnesses, and denies fever, chills, diarrhea. She is constipated and last had a bowel movement 4 to 5 days ago. She has felt lightheaded or dizzy a couple of times a month for "a while ". Since Tuesday she has had increased nausea and vomiting worsened with food. She is not in any pain at rest, but she has 7/10 pain with movement. Her belly feels diffusely tender. She endorses a dry cough in the morning which she thinks is allergies and improves throughout the day, denies productive cough. She has not had any night sweats. Medical history: Reviewed Medications: Reviewed in EMR, patient is a poor historian of her medications Surgical history: Reviewed Social: Denies tobacco, alcohol, recreational drug use. She lives with 2 grandchildren and her . CODE STATUS: DNR/DNI, may want to patient for declining respiratory status. Allergies Allergy/AdvReac Type Severity Reaction Status Date / Time allopurinol Allergy Unknown COUGH Verified 07/15/20 22:15 blue dye Allergy Unknown BRILLIANT Verified 07/15/20 22:15 BLUE FCF dimethyl fumarate Allergy Unknown UNKNOWN Verified 07/15/20 22:15 Home Medications Home Medications Medication Instructions Recorded Confirmed Type aspirin 81 mg tablet,delayed 81 mg PO DAILY tab 05/25/19 07/15/20 History release biotin 5 mg tablet 5 tab PO DAILY tab 05/25/19 07/15/20 History pioglitazone 15 mg tablet 15 mg PO DAILY tab 05/25/19 07/15/20 History buspirone 10 mg tablet 10 mg PO BID PRN 09/03/19 07/15/20 History dulaglutide 1.5 mg/0.5 mL 0 mg SQ WEEKLY ml 09/03/19 07/15/20 History subcutaneous pen injector gabapentin 800 mg tablet 800 mg PO TID #270 tab 09/03/19 07/15/20 Rx glipizide 10 mg tablet 10 mg PO BID 09/03/19 07/15/20 History levothyroxine 100 mcg tablet 100 mcg PO DAILY 09/03/19 07/15/20 History lorazepam 0.5 mg tablet 0.5 mg PO DAILY PRN 09/03/19 07/15/20 History metformin 500 mg tablet 500 mg PO QAM 09/03/19 07/15/20 History nitroglycerin 0.4 mg sublingual 0.4 mg SL Q5M PRN 09/03/19 07/15/20 History tablet acetaminophen [Tylenol] 650 mg PO Q6 PRN 09/19/19 07/15/20 History ergocalciferol (vitamin D2) 1,250 mcg PO WK 09/19/19 07/15/20 History [Vitamin D2] folic acid 0.4 mg PO DAILY 09/19/19 07/15/20 History senna 8.6 mg PO BID PRN 09/19/19 07/15/20 History furosemide 40 mg PO DAILY PRN 05/13/20 07/15/20 History isosorbide mononitrate 120 mg PO DAILY 05/13/20 07/15/20 History rosuvastatin 5 mg PO HS 05/13/20 07/15/20 History clopidogrel 75 mg PO QAM #30 tab 05/29/20 07/15/20 Rx amiodarone 100 mg PO DAILY 06/12/20 07/15/20 History diclofenac sodium 2 g TOPICAL QID PRN 06/12/20 07/15/20 History potassium chloride [Klor-Con M10] 10 meq PO DAILY PRN 06/12/20 07/15/20 History metoprolol succinate 25 mg PO QAM #1 tab 06/19/20 07/15/20 Rx albuterol sulfate 2.5 mg INHALATION Q4H PRN 07/15/20 07/15/20 History amlodipine [Norvasc] 10 mg PO DAILY 07/15/20 07/15/20 History carbamazepine [Tegretol] 200 mg PO DAILY 07/15/20 07/15/20 History docusate sodium 100 mg PO TID 07/15/20 07/15/20 History fentanyl [Duragesic] 25 mcg TOPICAL [id number] 07/15/20 07/15/20 History lisinopril 5 mg PO DAILY 07/15/20 07/15/20 History omeprazole 40 mg PO DAILY 07/15/20 07/15/20 History propranolol [Inderal LA] 60 mg PO DAILY 07/15/20 07/15/20 History sulfamethoxazole-trimethoprim 1 tab PO BID 07/15/20 07/15/20 History vitamin E 1,000 tab PO DAILY 07/15/20 07/15/20 History warfarin [Jantoven] 1 mg PO .DAILY UD 07/15/20 07/15/20 History Past Med/Surg History Medical History (Updated 07/17/20 @ 14:31 by Steve Velez MD) Acute systolic CHF (congestive heart failure) Anemia of chronic disease Atrial fibrillation Bradycardia CAD (coronary artery disease) July 2009 -NSTEMI 2009-2 KYLER to circumflex obtuse marginal, 1 KYLER to RCA Carotid artery stenosis CKD (chronic kidney disease), stage III DM type 2 (diabetes mellitus, type 2) Dyslipidemia History of DVT (deep vein thrombosis) Hypertension Hypothyroidism Interstitial lung disease Legally blind Multiple sclerosis Obesity (BMI 30-39.9) Seizure disorder Shortness of breath Surgical History History of hysterectomy History of tonsillectomy Hx of cholecystectomy Family History Mother Heart disease Social History Smoking Status: Never smoker Hx Alcohol Use: No Hx Substance Use: No Preferred Language: Citizen Of [place] Communication Ability: Impaired Buttermaker Continuous Churn Required: No Beliefs That Will Affect Care: None marital status: Current Living Situation: Spouse and Family How many Children do You have: 4 Other Information That Helps Us Care for You: No Feels Safe at Home: Yes Safety Concerns: Feels Safe At This Time Assistive Devices: Oxygen - Continuous Review of Systems Review of Systems: See HPI Physical Exam Physical Exam: General: Patient is alert and oriented to name, place, and date. No acute distress. Thought process linear. HEENT: Atraumatic, normocephalic. Pupils equal and reactive to light and accommodation. Patient visual acuity severely impaired, only able to see shadows. Hearing grossly intact. Pulm: CTAB A&P. -wheezes, -rales, -rhonchi. Symmetrical chest rise. No increase work of breathing. No respiratory distress. Cardiac: RRR, -mrg. Radial pulses intact and symmetrical. Abdominal: Diffusely tender to palpation, nonrigid, no rebound. Hematoma overlying right lower abdomen/flank. No CVA tenderness. Extremities: Minister Assistant strength, ankle plantarflexion/dorsiflexion with full strength and intact bilaterally. Patient reports she is able to sense soft touch with her eyes closed and is able to localize which foot is being touched with her eyes closed, but incorrectly guesses at proprioception of hallux bilaterally. Results & Data Results & Data ([facility]) Vital Signs (Past 12 Hours) Vital Signs Temp Pulse Pulse Resp BP BP Pulse Ox 07/15/20 23:00 50 L 23 159/97 H 07/15/20 22:30 51 L 17 07/15/20 22:01 50 L 20 158/76 H 07/15/20 22:00 50 L 20 07/15/20 21:47 50 L 23 156/87 H 07/15/20 21:46 50 L 20 156/87 H 97 07/15/20 21:30 50 L 20 07/15/20 21:02 26 H 07/15/20 21:00 28 H 07/15/20 20:31 61 20 113/108 H 07/15/20 20:01 50 L 20 130/60 07/15/20 19:55 48 L 20 128/46 L 95 07/15/20 19:00 50 L 24 07/15/20 18:30 48 L 22 07/15/20 18:10 100 07/15/20 18:03 36.8 C 48 L 20 145/68 H 100 Supervising Physician Co-Signing Physician Notes Attending addendum: I have physically seen this patient, have supervised the medical residents activities, and agree with the H&P unless as otherwise noted. Assessment and Plan: Increasing frequency of falls- Had 3 falls prior to this admission. CT head and cervical spine are negative. Consult PT and OT. Most recent admissions: 05/13-05/22, 05/26-05/29, and 06/12-06/19. Intractable nausea and vomiting- CT shows mild focal mesenteric edema on left side. Question secondary to trauma or blood flow. Would order mesenteric Dopplers for further assessment Acute kidney injury- Creatinine 1.6 with baseline 1.25. Hold pioglitazone, Metformin, lisinopril and furosemide. Follow laboratory serially CAD/HFpEF- Continue metoprolol, aspirin, isosorbide mononitrate, amiodarone, amlodipine and rosuvastatin. Hold lisinopril as noted above Remaining orders and notations as noted Resident Activity Tracking Resident Involvement: Resident Care Provided Care Provided: Adult Hospital Medicine (1) Contusion of flank Encounter type: initial encounter Qualified Code(s): S30.1XXA - Contusion of abdominal wall, initial encounter (2) Anemia Anemia type: unspecified type Qualified Code(s): D64.9 - Anemia, unspecified (3) Vomiting Nausea presence: with nausea Vomiting Intractability: non-intractable Vomiting type: unspecified Qualified Code(s): R11.2 - Nausea with vomiting, unspecified (4) Fall Encounter type: initial encounter Qualified Code(s): W19.XXXA - Unspecified fall, initial encounter
[2020-07-16] MEDS ORDERED: GLUCOSE 40% GEL 15 GM TUBE PO PRN (00:10)
[2020-07-16] MEDS ORDERED: DEXTROSE 50% 50 ML SYRINGE IV PRN (00:10)
[2020-07-16] MEDS ORDERED: GLUCOSE 10 TABS/TUBE PO PRN (00:10)
[2020-07-16] MEDS ORDERED: CARBOHYDRATES FOR HYPOGLYCEMIA PO PRN (00:10)
[2020-07-16] MEDS ORDERED: GLUCAGON FOR INJ 1 MG VIAL SQ PRN (00:10)
[2020-07-16] MEDS: ONDANSETRON INJ 2 MG/ML 2 ML VIAL IV SCH ×6 (03:55→23:47)
[2020-07-16] MEDS: NSS + 20MEQ KCL 20 MEQ/1,000 ML BAG IV SCH ×2 (03:55→14:36)
[2020-07-16] MEDS: CHECK fentaNYL PATCH PLACEMENT SCH ×3 (04:00→15:57)
[2020-07-16] MEDS: LEVOTHYROXINE SODIUM 100 MCG TABLET PO SCH (06:26)
[2020-07-16] MEDS: carBAMazepine 200 MG TABLET PO SCH (08:49)
[2020-07-16] MEDS: PANTOprazole 40 MG TAB PO SCH (08:49)
[2020-07-16] MEDS: HEPARIN SOD 5,000 UNIT/0.5 ML VIAL SQ SCH ×2 (08:50→20:33)
[2020-07-16] MEDS: ISOSORBIDE MONO EXTENDED REL 60 MG TABCR PO SCH (08:50)
[2020-07-16] MEDS: ASPIRIN 81 MG ECTAB PO SCH (08:51)
[2020-07-16] MEDS: AMIODARONE 200 MG TAB PO SCH (08:51)
[2020-07-16] MEDS: CLOPIDOGREL BISULFATE 75 MG TAB PO SCH (08:51)
[2020-07-16] MEDS: FOLIC ACID 400 MCG TAB PO SCH (08:51)
[2020-07-16] MEDS: busPIRone 5 MG TAB PO PRN (08:51)
[2020-07-16] MEDS: amLODIPine BESYLATE 5 MG TAB PO SCH (08:52)
[2020-07-16] MEDS: METOPROLOL SUCC 25MG EXT REL TAB PO SCH (08:53)
[2020-07-16] MEDS: INSULIN GLARGINE SOLOSTAR 100 UNITS/ML 3 ML PEN SC SCH ×2 (08:54→20:36)
[2020-07-16] MEDS: INSULIN ASPART 100 UNITS/ML 3 ML PEN SC SCH ×4 (08:56→20:27)
[2020-07-16] MEDS: fentaNYL 25 MCG/HR TDSY TD SCH (09:01)
[2020-07-16 09:08] LABS: Estimated Average Glucose 111 mg/dl; Hemoglobin A1C 5.5 % (4.5-5.6)
[2020-07-16 09:32] LABS: BUN Creatinine Ratio 13.5 (10-20); Calcium 8.5 mg/dl (8.5-10.1); Est GFR (African American) 37.4; Est GFR (Non-African American) 32.3; Potassium 5.5 mmol/L (3.5-5.1)
--- NOTE | 2020-07-16 15:58 | Electrocardiogram Report ---
Test Reason : Blood Pressure : / mmHG Vent. Rate : 048 BPM Atrial Rate : 048 BPM P-R Int : 262 ms QRS Dur : 110 ms QT Int : 508 ms P-R-T Axes : 067 010 042 degrees QTc Int : 453 ms Sinus bradycardia with 1st degree A-V block Cannot rule out Anterior infarct , age undetermined Abnormal ECG When compared with ECG of 18-JUN-2020 06:41, No significant change was found Confirmed by Nirmal Cummins ([id number]) on 07/16/2020 3:57:56 PM Referred By: Chris Reis Confirmed By:Nirmal Cummins
[2020-07-16 16:12] LABS: BUN Creatinine Ratio 12.6 (10-20); Calcium 8.5 mg/dl (8.5-10.1); Creatinine Clr Calc Pharmacy 31.4 ml/min; Est GFR (African American) 39.6; Est GFR (Non-African American) 34.2; Potassium 5.6 mmol/L (3.5-5.1)
[2020-07-16] MEDS ORDERED: MICONAZOLE NITRATE POWDER 43 GM EXT PRN (17:35)
[2020-07-16] MEDS: LORazepam 0.5 MG TAB PO PRN ×2 (17:50→21:35)
--- NOTE | 2020-07-16 19:29 | Hospitalist Progress Note ---
Date of Service July 16, 2020 Assessment & Plan (1) Fall: weakness/deconditioning PT/OT eval and treat (2) Contusion of flank: and abd. fortunately no worrisome features on exam serial exam, low threshold to repeat CT if any worsening (3) Vomiting: suspect mostly from constipation, possibly some from upset stomach from abx from UTI -symptomatic and supportive care (4) MARY (acute kidney injury): suspect dry from vomiting/poor intake - superimpsoed on CKD3. improved some w fluids. given concern on CHF as well (chronic diastolic) will stop fluids and follow cautiously. improving though (5) Acute hyponatremia: likely from vomiting. has improved some (6) Acute and chronic respiratory failure with hypoxia: ILD, chronic diastolic CHF. CT chest shows some degree of a wash of pulmonary edema, but clinical picture appears a little more dry. see above- had gentle fluids now on hold follow, O2, supportive care (7) Paroxysmal atrial fibrillation: rate controlled, not on anticoagulation now due to multiple falls. (8) CKD (chronic kidney disease), stage III: (9) DM type 2 (diabetes mellitus, type 2): sugars reasonable, continue current and follow (10) CAD (coronary artery disease): no angina (11) Acute hyperkalemia: improving. no EKG changes (12) Dysuria: questionable at this point - no overt s/s infection. follow. (13) DVT prophylaxis: heparin SQ (14) Discharge planning issues: PT/OT eval and treat, anticipate need for rehab Admission and Anticipated Discharge Date Admission Date: July 16, 2020 Subjective generally feels lousy all over sob - notes that this has been worse the last few weeks than before. no cough/fc/s. normally wears O2 ~3L. just more sob lately still no bm nausae a little better - able to tolerate clears without vomiting but still feels fairly sick to her stomach weakness significant - really really weak over the last few weeks and worse than before, frequent falls Review of Systems Review of Systems: All systems reviewed & are unremarkable except as noted in HPI & below Physical Exam Physical Exam: gen aaox3 pleasant but fatigued and appears in a mild degree of either respiratory or nausea distress heent nc at mmm cardio reg no r/m/g lungs coarse but overall clear no r//r/w good effort abd soft mild diffuse mid abd tenderness no guarding no rebound no rigidity ext no c/c, maybe trace edema neuro no focal deficits, does have intention tremor skin no rashes no pallor or icterus Results & Data Results & Data ([facility]) Vital Signs (Past 12 Hours) Vital Signs Temp Pulse Pulse Pulse Resp BP BP 07/16/20 16:23 97.5 F L 50 L 18 139/58 L 07/16/20 11:49 98.2 F 58 L 18 119/47 L 07/16/20 08:17 97.5 F L 79 18 127/63 07/16/20 07:22 50 L Pulse Ox 07/16/20 16:23 97 07/16/20 11:49 98 07/16/20 08:17 94 07/16/20 07:22 PG Care Time/CCT Total # of Minutes Spent Total Time Spent with Patient: Total time spent is greater than 50% in coordination of care (as documented) at patient's floor/unit and/or counseling patient: Coding Level of Care Code 99501 Subseq Hosp Care Lvl 3 Diagnoses Fall W19.XXXA Encounter type: initial encounter Contusion of flank S30.1XXA Encounter type: initial encounter Vomiting R11.2 Nausea presence: with nausea Vomiting Intractability: non-intractable Vomiting type: unspecified MARY (acute kidney injury) N17.9 Acute hyponatremia E87.1 Acute and chronic respiratory failure with hypoxia J96.21 Paroxysmal atrial fibrillation I48.0 CKD (chronic kidney disease), stage III N18.3 DM type 2 (diabetes mellitus, type 2) E11.69 Diabetes mellitus news content specialist insulin use: without news content specialist use Diabetes mellitus complication status: with other specified complication CAD (coronary artery disease) I25.119 Coronary Disease-Associated Artery/Lesion type: [place] artery [place] vs. transplanted heart: [place] heart Associated angina: with unspecified angina Acute hyperkalemia E87.5 Dysuria R30.0 DVT prophylaxis Z29.9 Discharge planning issues Z02.9 (1) Fall Encounter type: initial encounter Qualified Code(s): W19.XXXA - Unspecified fall, initial encounter (2) Contusion of flank Encounter type: initial encounter Qualified Code(s): S30.1XXA - Contusion of abdominal wall, initial encounter (3) Vomiting Nausea presence: with nausea Vomiting Intractability: non-intractable Vomiting type: unspecified Qualified Code(s): R11.2 - Nausea with vomiting, unspecified (4) DM type 2 (diabetes mellitus, type 2) Diabetes mellitus senior care insulin use: without news content specialist use Diabetes mellitus complication status: with other specified complication Qualified Code(s): E11.69 - Type 2 diabetes mellitus with other specified complication (5) CAD (coronary artery disease) Coronary Disease-Associated Artery/Lesion type: [place] artery [place] vs. transplanted heart: [place] heart Associated angina: with unspecified angina Qualified Code(s): I25.119 - Atherosclerotic heart disease of [place] coronary artery with unspecified angina pectoris
[2020-07-16] MEDS: ROSUVASTATIN CALCIUM 5 MG TAB PO SCH (20:32)
[2020-07-16] MEDS: POLYETHYLENE (MIRALAX) 17 GM PACK PO SCH (20:40)
[2020-07-16] MEDS: FAMOTIDINE 20 MG in SYRINGE 3 ML IV SCH (21:41)
[2020-07-16] MEDS ORDERED: ALBUT/IPRATROP 3MG/0.5MG NEB 3 ML VIAL NEB STA (23:50)
[2020-07-17] MEDS ORDERED: OLANZapine 5 MG TABLET PO STA (00:07)
[2020-07-17] MEDS ORDERED: HALOPERIDOL LACTATE 5 MG/ML 1 ML VIAL IM STA ×2 (00:12→02:50)
[2020-07-17] MEDS ORDERED: LORazepam 1 MG/2 ML VIAL IV ONE (02:51)
[2020-07-17] MEDS: ONDANSETRON INJ 2 MG/ML 2 ML VIAL IV SCH ×4 (03:45→17:05)
[2020-07-17] MEDS: LEVOTHYROXINE SODIUM 100 MCG TABLET PO SCH (05:43)
[2020-07-17] MEDS: INSULIN ASPART 100 UNITS/ML 3 ML PEN SC SCH ×4 (08:50→20:52)
[2020-07-17] MEDS: busPIRone 5 MG TAB PO PRN ×2 (08:51→20:50)
[2020-07-17] MEDS: FOLIC ACID 400 MCG TAB PO SCH (08:52)
[2020-07-17] MEDS: carBAMazepine 200 MG TABLET PO SCH (08:52)
[2020-07-17] MEDS: AMIODARONE 200 MG TAB PO SCH (08:52)
[2020-07-17] MEDS: ASPIRIN 81 MG ECTAB PO SCH (08:53)
[2020-07-17] MEDS: amLODIPine BESYLATE 5 MG TAB PO SCH (08:53)
[2020-07-17] MEDS: ISOSORBIDE MONO EXTENDED REL 60 MG TABCR PO SCH (08:54)
[2020-07-17] MEDS: CLOPIDOGREL BISULFATE 75 MG TAB PO SCH (08:55)
[2020-07-17] MEDS: PANTOprazole 40 MG TAB PO SCH (08:55)
[2020-07-17] MEDS: METOPROLOL SUCC 25MG EXT REL TAB PO SCH (08:55)
[2020-07-17] MEDS: HEPARIN SOD 5,000 UNIT/0.5 ML VIAL SQ SCH ×2 (08:56→20:51)
[2020-07-17] MEDS: CHECK fentaNYL PATCH PLACEMENT SCH ×4 (08:56→23:54)
[2020-07-17] MEDS: INSULIN GLARGINE SOLOSTAR 100 UNITS/ML 3 ML PEN SC SCH ×2 (08:56→20:53)
[2020-07-17] MEDS: POLYETHYLENE (MIRALAX) 17 GM PACK PO SCH ×2 (09:24→20:51)
[2020-07-17 10:19] LABS: Basophils # (auto) 0.01 K/uL (0-0.2); Basophils % (auto) 0.1 %; Hematocrit (blood only) 23.8 % (37-47); Hemoglobin 7.7 g/dL (12.0-16.0); Lymphocytes # (auto) 0.24 K/uL (1.2-3.4); Lymphocytes % (auto) 3.2 %; Mean Corpuscular Hemoglobin 31.7 pg (25-34); Mean Corpuscular Hgb Conc 32.4 g/dL (32-36); Mean Corpuscular Volume 97.9 fL (80-100); Mean Platelet Volume 10.3 fL (7.4-10.4); Monocytes # (auto) 0.88 K/uL (0.11-0.59); Monocytes % (auto) 11.6 %; Neutrophils # (auto) 6.48 K/uL (1.4-6.5); Neutrophils % (auto) 85.1 %; Platelet Count 262 K/uL (130-400); RDW Coefficient of Variation 14.4 % (11.5-14.5); RDW Standard Deviation 51.6 fL (36.4-46.3); Red Blood Count 2.43 M/uL (4.2-5.4); White Blood Count 7.61 K/uL (4.8-10.8)
[2020-07-17 10:42] LABS: RBC Morphology Unremarkable
[2020-07-17] MEDS ORDERED: busPIRone 5 MG TAB PO STA ×2 (10:49→10:51)
[2020-07-17 10:51] LABS: BUN Creatinine Ratio 15.3 (10-20); Calcium 8.6 mg/dl (8.5-10.1); Creatinine Clr Calc Pharmacy 32.4 ml/min; Est GFR (African American) 41.7; Potassium 5.6 mmol/L (3.5-5.1)
[2020-07-17] MEDS ORDERED: FUROSEMIDE 40 MG in SYRINGE 0 ML IV ONE (14:00)
[2020-07-17] MEDS: LORazepam 0.5 MG TAB PO PRN (14:33)
--- NOTE | 2020-07-17 14:37 | Pulmonary Consultation ---
Date of Consultation July 17, 2020 Assessment & Plan (1) Shortness of breath: The patient's shortness of breath and hypoxia is likely multifactorial related to her combined systolic and diastolic heart failure. Her proBNP is very elevated currently. She is roughly 2.4 L positive since hospital admission. I would recommend a trial of Lasix. This was communicated to the hospitalist. She does have ongoing sinus bradycardia and is currently on metoprolol and amiodarone. It may be worth decreasing the dose of metoprolol to 12.5 and discussing with cardiology. Her TSH was only slightly elevated I doubt this is playing a role in her bradycardia. She does have diffuse groundglass fi ndings on the CT chest which are most likely related to CHF statistically (especially given the small bilateral effusions), but amiodarone related lung toxicity is difficult to rule out. She is on a very low-dose of amiodarone and this does seem to be less likely. She also has an ongoing anemia likely related to anemia of chronic disease and her recent hematoma. However, it is difficult to completely rule out diffuse alveolar hemorrhage. I don't think a bronchoscopy is indicated currently and could possibly lead to altered mental status and worsening hypoxemia given her underlying issues. She denies hemoptysis. Notably, she is on aspirin and Plavix. Her INR is within normal limits. DAH also seems less likely, however. Lastly, she does have a history of DVT. Chronic thromboembolic pulmonary hypertension can certainly be a cause of her dyspnea, however, her most recent echocardiogram in May did not reveal any significant pulmonary hypertension. I do not think that the patient will be able to complete a pulmonary function test. I think that a palliative care consult would be very beneficial in this case. Her prognosis overall is guarded. Pulmonary will continue to follow from all standpoint. Please call with questions. Thank you for the consult. (2) Acute systolic CHF (congestive heart failure): (3) Anemia of chronic disease: (4) Bradycardia: (5) Atrial fibrillation: (6) Obesity (BMI 30-39.9): History of Present Illness Reason for Consultation: Shortness of breath Requesting Physician: Modesto Pate DO Attending Physician: Modesto Pate DO History of Present Illness This is a 80-year-old female with a past medical history of atrial fibrillation on amiodarone, systolic heart failure with an EF of 45 to 50%, diastolic heart failure, history of lower extremity DVT, anemia of chronic disease, obesity with a BMI of 37.9, CVA, Parkinson's disease, blindness due to diabetic retinopathy, type 2 diabetes mellitus and a reported history of possible interstitial lung disease who presented to the hospital on 07/15/2020 due to recurrent falls. She apparently also had nausea and vomiting and underwent a CT abdomen that demonstrated mesenteric edema. She has had 4 to 5 days of constipation. Notably, she was just in the hospital on 06/19/2020 for right ureteral stone with temporary stent placement. She also had a hematoma of her left thigh with evidence of a supratherapeutic INR. Her hemoglobin has been trending downwards. The patient is quite debilitated at baseline and essentially has been sedentary for the last 2 months. She gets around in a powered wheelchair. Her is present during today's visit. The patient is complaining of pain in her belly and hip from her recent fall. She describes that she has shortness of breath at all times even at rest. She is normally on 3 L of oxygen at baseline. She is currently on 5 L of oxygen. The seems quite overwhelmed about the issues at home. They have a 16-year-old great grandson at home as well. There is 1 small dog outside. Patient has very significant essential tremors and Parkinson's-like tremors with lipsmacking behaviors. The notes that her speech patterns, tremors and thinking have all deteriorated over the last several months. I asked him whether they have any thoughts regarding hospice or palliative care and they indicated that they would like to talk with the palliative care provider. Her most recent echocardiogram was which demonstrated an EF of 45 to 50% with moderate concentric hypertrophy. No significant valvulopathy was seen. She was evaluated by cardiology on 06/19/2020 due to concerns of ongoing anemia. Cardiology recommended continuing aspirin and Plavix. They also recommended continuing amiodarone. proBNP today was 11,245 which is the highest it has been since September. EKG on admission with evidence of first-degree AV block and sinus bradycardia. Her heart rate has been in the high 40s and low 50s. Her CT chest on 07/15/2020 demonstrated cardiomegaly with small bilateral effusions and bilateral groundglass opacities with septal thickening suggestive of CHF. She is 2.4 L positive since admission. Allergies Allergy/AdvReac Type Severity Reaction Status Date / Time allopurinol Allergy Unknown COUGH Verified 07/15/20 22:15 blue dye Allergy Unknown BRILLIANT Verified 07/15/20 22:15 BLUE FCF dimethyl fumarate Allergy Unknown UNKNOWN Verified 07/15/20 22:15 Home Medications Home Medications Medication Instructions Recorded Confirmed Type aspirin 81 mg tablet,delayed 81 mg PO DAILY tab 05/25/19 07/15/20 History release biotin 5 mg tablet 5 tab PO DAILY tab 05/25/19 07/15/20 History pioglitazone 15 mg tablet 15 mg PO DAILY tab 05/25/19 07/15/20 History buspirone 10 mg tablet 10 mg PO BID PRN 09/03/19 07/15/20 History dulaglutide 1.5 mg/0.5 mL 0 mg SQ WEEKLY ml 09/03/19 07/15/20 History subcutaneous pen injector gabapentin 800 mg tablet 800 mg PO TID #270 tab 09/03/19 07/15/20 Rx glipizide 10 mg tablet 10 mg PO BID 09/03/19 07/15/20 History levothyroxine 100 mcg tablet 100 mcg PO DAILY 09/03/19 07/15/20 History lorazepam 0.5 mg tablet 0.5 mg PO DAILY PRN 09/03/19 07/15/20 History metformin 500 mg tablet 500 mg PO QAM 09/03/19 07/15/20 History nitroglycerin 0.4 mg sublingual 0.4 mg SL Q5M PRN 09/03/19 07/15/20 History tablet acetaminophen [Tylenol] 650 mg PO Q6 PRN 09/19/19 07/15/20 History ergocalciferol (vitamin D2) 1,250 mcg PO WK 09/19/19 07/15/20 History [Vitamin D2] folic acid 0.4 mg PO DAILY 09/19/19 07/15/20 History senna 8.6 mg PO BID PRN 09/19/19 07/15/20 History furosemide 40 mg PO DAILY PRN 05/13/20 07/15/20 History isosorbide mononitrate 120 mg PO DAILY 05/13/20 07/15/20 History rosuvastatin 5 mg PO HS 05/13/20 07/15/20 History clopidogrel 75 mg PO QAM #30 tab 05/29/20 07/15/20 Rx amiodarone 100 mg PO DAILY 06/12/20 07/15/20 History diclofenac sodium 2 g TOPICAL QID PRN 06/12/20 07/15/20 History potassium chloride [Klor-Con M10] 10 meq PO DAILY PRN 06/12/20 07/15/20 History metoprolol succinate 25 mg PO QAM #1 tab 06/19/20 07/15/20 Rx albuterol sulfate 2.5 mg INHALATION Q4H PRN 07/15/20 07/15/20 History amlodipine [Norvasc] 10 mg PO DAILY 07/15/20 07/15/20 History carbamazepine [Tegretol] 200 mg PO DAILY 07/15/20 07/15/20 History docusate sodium 100 mg PO TID 07/15/20 07/15/20 History fentanyl [Duragesic] 25 mcg TOPICAL [id number] 07/15/20 07/15/20 History lisinopril 5 mg PO DAILY 07/15/20 07/15/20 History omeprazole 40 mg PO DAILY 07/15/20 07/15/20 History propranolol [Inderal LA] 60 mg PO DAILY 07/15/20 07/15/20 History sulfamethoxazole-trimethoprim 1 tab PO BID 07/15/20 07/15/20 History vitamin E 1,000 tab PO DAILY 07/15/20 07/15/20 History warfarin [Jantoven] 1 mg PO .DAILY UD 07/15/20 07/15/20 History Patient History Medical History (Updated 07/17/20 @ 14:31 by Steve Velez MD) Acute systolic CHF (congestive heart failure) Anemia of chronic disease Atrial fibrillation Bradycardia CAD (coronary artery disease) July 2009 -NSTEMI 2009-2 KYLER to circumflex obtuse marginal, 1 KYLER to RCA Carotid artery stenosis CKD (chronic kidney disease), stage III DM type 2 (diabetes mellitus, type 2) Dyslipidemia History of DVT (deep vein thrombosis) Hypertension Hypothyroidism Interstitial lung disease Legally blind Multiple sclerosis Obesity (BMI 30-39.9) Seizure disorder Shortness of breath Surgical History History of hysterectomy History of tonsillectomy Hx of cholecystectomy Family History Mother Heart disease Social History Smoking Status: Never smoker Hx Alcohol Use: No Hx Substance Use: No Preferred Language: [place] Communication Ability: Impaired Damage Cutter Required: No Beliefs That Will Affect Care: None marital status: Current Living Situation: Spouse and Family How many Children do You have: 4 Other Information That Helps Us Care for You: No Feels Safe at Home: Yes Safety Concerns: Feels Safe At This Time Assistive Devices: Oxygen - Continuous Review of Systems Review of Systems: All systems reviewed & are unremarkable except as noted in HPI & below Results & Data Results & Data ([facility]) Vital Signs (Past 12 Hours) Vital Signs Temp Pulse Pulse Resp BP BP Pulse Ox 07/17/20 13:50 07/17/20 12:08 97.9 F 62 22 193/60 H 93 07/17/20 07:47 58 L 07/17/20 07:45 97.7 F 84 22 195/83 H 90 07/17/20 04:45 58 L 158/64 H 93 07/17/20 03:15 Pulse Ox Pulse Ox 07/17/20 13:50 92 07/17/20 12:08 07/17/20 07:47 07/17/20 07:45 07/17/20 04:45 07/17/20 03:15 97 I personally reviewed the CT chest which demonstrated evidence of congestive heart failure. I reviewed the labs and vital signs as well. PG Care Time/CCT Total # of Minutes Spent Total Time Spent with Patient: Total time spent is greater than 50% in coordination of care (as documented) at patient's floor/unit and/or counseling patient: Coding Level of Care Code 81811 Inpt Consult Level 5 Diagnoses Shortness of breath R06.02 Acute systolic CHF (congestive heart failure) I50.21 Anemia of chronic disease D63.8 Bradycardia R00.1 Atrial fibrillation I48.91 Obesity (BMI 30-39.9) E66.9
--- NOTE | 2020-07-17 18:49 | Hospitalist Progress Note ---
Date of Service July 17, 2020 Assessment & Plan (1) Fall: weakness/deconditioning PT/OT eval and treat and anticipate need for some form of rehab at de (2) Contusion of flank: and abd. fortunately no worrisome features on exam serial exams, low threshold to repeat CT if any worsening but seems stable (3) Vomiting: suspect mostly from constipation, possibly some from upset stomach from abx from UTI -symptomatic and supportive care - late in [facility] informs me that she's feeling hungry (4) MARY (acute kidney injury): ?dry fits hx but wet / poor forward flow fits chronic diseases and CT chest. fluids didn't change situation much, maybe breathing sl more labored - agree w pulmonary trial of diuretics (5) Acute hyponatremia: likely from vomiting. possibly from fluid overload (6) Acute and chronic respiratory failure with hypoxia: ILD, chronic diastolic CHF. CT chest shows some degree of a wash of pulmonary edema, but clinical picture did appear a little more dry. see above - since clnical picture appeared dry initially was given fluids but with breathing the same to maybe slighty worse change course to diurese (7) Paroxysmal atrial fibrillation: rate controlled, not on anticoagulation now due to multiple falls. (8) CKD (chronic kidney disease), stage III: (9) DM type 2 (diabetes mellitus, type 2): sugars ok, continue current and follow (10) CAD (coronary artery disease): no angina (11) Acute hyperkalemia: improving. no EKG changes (12) Dysuria: questionable at this point - no overt s/s infection. follow. (13) DVT prophylaxis: heparin SQ (14) Discharge planning issues: PT/OT eval and treat, anticipate need for rehab Admission and Anticipated Discharge Date Admission Date: July 16, 2020 Subjective no real changes w breathing - still feels more sob than before per . dw pulmonary - -input greatly appreciated seems like nausea might be better sleeping comfortably Review of Systems Review of Systems: Other Physical Exam Physical Exam: gen nad heent nc at mmm breathing unlabored no accessory muscles good effort skin no pallor or icterus Results & Data Results & Data ([facility]) Vital Signs (Past 12 Hours) Vital Signs Temp Pulse Pulse Resp BP BP Pulse Ox 07/17/20 16:03 97.7 F 69 28 H 171/71 H 100 07/17/20 13:50 07/17/20 12:08 97.9 F 62 22 193/60 H 93 07/17/20 07:47 58 L 07/17/20 07:45 97.7 F 84 22 195/83 H 90 Pulse Ox 07/17/20 16:03 07/17/20 13:50 92 07/17/20 12:08 07/17/20 07:47 07/17/20 07:45 PG Care Time/CCT Total # of Minutes Spent Total Time Spent with Patient: Total time spent is greater than 50% in coordination of care (as documented) at patient's floor/unit and/or counseling patient: Coding Level of Care Code 08305 Subseq Hosp Care Lvl 2 Diagnoses Fall W19.XXXA Encounter type: initial encounter Contusion of flank S30.1XXA Encounter type: initial encounter Vomiting R11.2 Nausea presence: with nausea Vomiting Intractability: non-intractable Vomiting type: unspecified MARY (acute kidney injury) N17.9 Acute hyponatremia E87.1 Acute and chronic respiratory failure with hypoxia J96.21 Paroxysmal atrial fibrillation I48.0 CKD (chronic kidney disease), stage III N18.3 DM type 2 (diabetes mellitus, type 2) E11.69 Diabetes mellitus penitentiary insulin use: without penitentiary use Diabetes mellitus complication status: with other specified complication CAD (coronary artery disease) I25.119 Coronary Disease-Associated Artery/Lesion type: [place] artery [place] vs. transplanted heart: [place] heart Associated angina: with unspecified angina Acute hyperkalemia E87.5 Dysuria R30.0 DVT prophylaxis Z29.9 Discharge planning issues Z02.9 (1) Fall Encounter type: initial encounter Qualified Code(s): W19.XXXA - Unspecified fall, initial encounter (2) Contusion of flank Encounter type: initial encounter Qualified Code(s): S30.1XXA - Contusion of abdominal wall, initial encounter (3) Vomiting Nausea presence: with nausea Vomiting Intractability: non-intractable Vomiting type: unspecified Qualified Code(s): R11.2 - Nausea with vomiting, unspecified (4) DM type 2 (diabetes mellitus, type 2) Diabetes mellitus penitentiary insulin use: without penitentiary use Diabetes mellitus complication status: with other specified complication Qualified Code(s): E11.69 - Type 2 diabetes mellitus with other specified complication (5) CAD (coronary artery disease) Coronary Disease-Associated Artery/Lesion type: [place] artery [place] vs. transplanted heart: [place] heart Associated angina: with unspecified angina Qualified Code(s): I25.119 - Atherosclerotic heart disease of [place] coronary artery with unspecified angina pectoris
[2020-07-17] MEDS: ROSUVASTATIN CALCIUM 5 MG TAB PO SCH (20:52)
[2020-07-17] MEDS ORDERED: OLANZapine 5 MG TABLET PO SCH (21:00)
[2020-07-17] MEDS: FAMOTIDINE 20 MG in SYRINGE 3 ML IV SCH (21:05)
--- NOTE | 2020-07-17 21:19 | Billing Data ---
Date of Service July 17, 2020 Coding Level of Care Code 24473 Initial Inpt Care Lvl 3
[2020-07-18] MEDS: LORazepam 0.5 MG TAB PO PRN (01:59)
[2020-07-18] MEDS ORDERED: diphenhydrAMINE 50 MG/ML VIAL IV STA (02:18)
[2020-07-18] MEDS ORDERED: LORazepam 1 MG/2 ML VIAL IV STA (02:18)
[2020-07-18] MEDS ORDERED: diphenhydrAMINE 50 MG/ML VIAL ONE (02:22)
[2020-07-18] MEDS: ONDANSETRON INJ 2 MG/ML 2 ML VIAL IV PRN (05:21)
[2020-07-18] MEDS: LEVOTHYROXINE SODIUM 100 MCG TABLET PO SCH (06:20)
[2020-07-18] MEDS: CHECK fentaNYL PATCH PLACEMENT SCH ×2 (08:33→16:00)
[2020-07-18] MEDS: AMIODARONE 200 MG TAB PO SCH (08:43)
[2020-07-18] MEDS: POLYETHYLENE (MIRALAX) 17 GM PACK PO SCH ×2 (08:43→21:08)
[2020-07-18] MEDS: ASPIRIN 81 MG ECTAB PO SCH (08:43)
[2020-07-18] MEDS: amLODIPine BESYLATE 5 MG TAB PO SCH (08:43)
[2020-07-18] MEDS: HEPARIN SOD 5,000 UNIT/0.5 ML VIAL SQ SCH ×2 (08:43→21:08)
[2020-07-18] MEDS: ISOSORBIDE MONO EXTENDED REL 60 MG TABCR PO SCH (08:43)
[2020-07-18] MEDS: carBAMazepine 200 MG TABLET PO SCH (08:43)
[2020-07-18] MEDS: CLOPIDOGREL BISULFATE 75 MG TAB PO SCH (08:43)
[2020-07-18] MEDS: FOLIC ACID 400 MCG TAB PO SCH (08:43)
[2020-07-18] MEDS: METOPROLOL SUCC 25MG EXT REL TAB PO SCH (08:43)
[2020-07-18] MEDS: PANTOprazole 40 MG TAB PO SCH (08:43)
[2020-07-18] MEDS: INSULIN ASPART 100 UNITS/ML 3 ML PEN SC SCH ×4 (08:44→21:09)
[2020-07-18] MEDS: INSULIN GLARGINE SOLOSTAR 100 UNITS/ML 3 ML PEN SC SCH ×2 (08:44→21:08)
[2020-07-18] MEDS ORDERED: FUROSEMIDE 40 MG in SYRINGE 0 ML IV SCH (09:00)
[2020-07-18 09:44] LABS: Basophils # (auto) 0.01 K/uL (0-0.2); Basophils % (auto) 0.1 %; Eosinophils # (auto) 0.07 K/uL (0-0.5); Hematocrit (blood only) 24.1 % (37-47); Hemoglobin 8.1 g/dL (12.0-16.0); Immature Granulocytes # (auto) 0.01 K/uL (0.00-0.02); Immature Granulocytes % (auto) 0.1 %; Lymphocytes # (auto) 0.45 K/uL (1.2-3.4); Lymphocytes % (auto) 6.5 %; Mean Corpuscular Hemoglobin 32.3 pg (25-34); Mean Corpuscular Hgb Conc 33.6 g/dL (32-36); Mean Platelet Volume 10.3 fL (7.4-10.4); Monocytes # (auto) 0.96 K/uL (0.11-0.59); Monocytes % (auto) 13.8 %; Neutrophils # (auto) 5.44 K/uL (1.4-6.5); Neutrophils % (auto) 78.5 %; Platelet Count 274 K/uL (130-400); RDW Coefficient of Variation 14.2 % (11.5-14.5); RDW Standard Deviation 50.1 fL (36.4-46.3); Red Blood Count 2.51 M/uL (4.2-5.4); White Blood Count 6.94 K/uL (4.8-10.8)
[2020-07-18 09:58] LABS: Partial Thromboplastin Time 28.6 Seconds (21.0-31.0); Prothrombin Time 10.8 Seconds (9.0-12.0)
[2020-07-18 10:19] LABS: BUN Creatinine Ratio 11.3 (10-20); Calcium 9.1 mg/dl (8.5-10.1); Creatinine Clr Calc Pharmacy 32.1 ml/min; Est GFR (Non-African American) 36.3; Magnesium 1.4 mg/dl (1.8-2.4); Potassium 4.5 mmol/L (3.5-5.1)
--- NOTE | 2020-07-18 15:54 | Pulmonology Progress Note ---
Date of Service July 18, 2020 Assessment & Plan (1) Shortness of breath: The patient's shortness of breath and hypoxia is likely multifactorial related to her combined systolic and diastolic heart failure, obesity, deconditioning, anemia, bradycardia, AF, etc. Her proBNP was very elevated. Diuresing with lasix. Dyspnea improved. Underlying ILD difficult to rule out. ??Parkinson's disease. Patient's with parkison's have higher risk for chronic aspiration and ILD. Recommend aspiration precautions. No signs of acute pneumonia. Continue supplemental O2 to maintain sats above 88%. Sleep disordered breathing remains a possibility. Can consider sleep study as outpatient. PCP can order. Discussed with bedside RN and hospitalist in person. Pulm will sign off. Please call with questions. Thank you for the consult. (2) Acute systolic CHF (congestive heart failure): (3) Anemia of chronic disease: (4) Bradycardia: (5) Atrial fibrillation: (6) Obesity (BMI 30-39.9): Admission and Anticipated Discharge Date Admission Date: July 16, 2020 Subjective Shortness of breath improved today. Able to sit up in a chair this morning. No chest pain, fevers or chills. Review of Systems Review of Systems: All systems reviewed & are unremarkable except as noted in HPI & below Physical Exam Constitutional: + obese chronically ill appearing. NAD Eyes: PERRL, conjunctivae normal, anicteric sclerae ENMT: Continuous lip smacking Neck: + thick neck Respiratory: normal respiratory effort; no cough Cardiovascular: RRR, no murmur, no edema Gastrointestinal (Abdomen): normal bowel sounds, soft, nontender, no hepatosplenomegaly Musculoskeletal: no cyanosis or clubbing, extremities motor strength 5/5 Skin: no rashes, warm and dry Neurologic: CN's II-XI intact bilaterally Psychiatric: A+Ox3, euthymic affect Results & Data Results & Data ([facility]) Vital Signs (Past 12 Hours) Vital Signs Temp Pulse Pulse Resp BP Pulse Ox 07/18/20 14:35 98.1 F 56 L 18 151/68 H 97 07/18/20 12:09 98.4 F 61 20 153/50 H 98 07/18/20 07:31 98.4 F 126 H 18 180/64 H 93 07/18/20 04:50 162/84 H 07/18/20 03:52 56 L vs, labs, imaging personally revieed PG Care Time/CCT Total # of Minutes Spent Total Time Spent with Patient: Total time spent is greater than 50% in coordination of care (as documented) at patient's floor/unit and/or counseling patient: Coding Level of Care Code 41666 Subseq Hosp Care Lvl 2 Diagnoses Shortness of breath R06.02 Acute systolic CHF (congestive heart failure) I50.21 Anemia of chronic disease D63.8 Bradycardia R00.1 Atrial fibrillation I48.91 Obesity (BMI 30-39.9) E66.9
--- NOTE | 2020-07-18 18:31 | Hospitalist Progress Note ---
Date of Service July 18, 2020 Assessment & Plan (1) Fall: weakness/deconditioning as cause PT/OT eval and treat and anticipate need for some form of rehab at dc (2) Contusion of flank: and abd. fortunately no worrisome features on exam serial exams, low threshold to repeat CT if any worsening but has been (3) Vomiting: suspect mostly from constipation, possibly some from upset stomach from abx from UTI -improved (4) MARY (acute kidney injury): difficutl to discern fluid balance - may even have some elements of being wet (lungs) and dry (arterial) at the same time - but breathing improving and cr somewhat improved w lasix - so continue and follow (5) Acute hyponatremia: likely from vomiting. possibly from fluid overload. continue to follow. (6) Anemia: (7) Hematoma of left hip: (8) Paroxysmal atrial fibrillation: rate controlled, not on anticoagulation now due to multiple falls. (9) NSTEMI (non-ST elevated myocardial infarction): (10) Right ureteral stone: Admission and Anticipated Discharge Date Admission Date: July 16, 2020 Subjective breathing feels back to baseline. eating better and belly feels better nausea basically better. still very weak "why am i so weak?" no other new complaints Review of Systems Review of Systems: All systems reviewed & are unremarkable except as noted in HPI & below Physical Exam Physical Exam: gen aaox3 pleasant nad heent nc at mmm lungs clear but faintly coarse bl no r/r/w good effort skin no rashes no pallor or icterus neuro no focal deficits Results & Data Results & Data ([facility]) Vital Signs (Past 12 Hours) Vital Signs Temp Pulse Resp BP Pulse Ox 07/18/20 14:35 98.1 F 56 L 18 151/68 H 97 07/18/20 12:09 98.4 F 61 20 153/50 H 98 07/18/20 07:31 98.4 F 126 H 18 180/64 H 93 PG Care Time/CCT Total # of Minutes Spent Total Time Spent with Patient: Total time spent is greater than 50% in coordination of care (as documented) at patient's floor/unit and/or counseling patient: Coding Level of Care Code 00919 Subseq Hosp Care Lvl 3 Diagnoses Fall W19.XXXA Encounter type: initial encounter Contusion of flank S30.1XXA Encounter type: initial encounter Vomiting R11.2 Nausea presence: with nausea Vomiting Intractability: non-intractable Vomiting type: unspecified MARY (acute kidney injury) N17.9 Acute hyponatremia E87.1 Anemia D64.9 Anemia type: unspecified type Hematoma of left hip S70.02XA Paroxysmal atrial fibrillation I48.0 NSTEMI (non-ST elevated myocardial infarction) I21.4 Right ureteral stone N20.1 (1) Fall Encounter type: initial encounter Qualified Code(s): W19.XXXA - Unspecified fall, initial encounter (2) Contusion of flank Encounter type: initial encounter Qualified Code(s): S30.1XXA - Contusion of abdominal wall, initial encounter (3) Vomiting Nausea presence: with nausea Vomiting Intractability: non-intractable Vomiting type: unspecified Qualified Code(s): R11.2 - Nausea with vomiting, unspecified (4) Anemia Anemia type: unspecified type Qualified Code(s): D64.9 - Anemia, unspecified
[2020-07-18] MEDS: ROSUVASTATIN CALCIUM 5 MG TAB PO SCH (21:07)
[2020-07-18] MEDS: MAGNESIUM OXIDE 400 MG TAB PO SCH (21:07)
[2020-07-18] MEDS: ACETAMINOPHEN 325 MG TAB PO PRN (21:07)
[2020-07-19] MEDS: ONDANSETRON INJ 2 MG/ML 2 ML VIAL IV PRN (01:51)
[2020-07-19] MEDS ORDERED: ALUMINUM/MAGNESIUM/SIMETH (MAALOX MAX) 30 ML UDC PO PRN (02:05)
[2020-07-19] MEDS ORDERED: CALCIUM CARBONATE 500 MG CHEWABLE TAB PO PRN (02:05)
[2020-07-19] MEDS: LEVOTHYROXINE SODIUM 100 MCG TABLET PO SCH (05:56)
[2020-07-19] MEDS: POLYETHYLENE (MIRALAX) 17 GM PACK PO SCH ×2 (07:51→19:53)
[2020-07-19 07:55] LABS: BUN Creatinine Ratio 9.5 (10-20); Creatinine Clr Calc Pharmacy 33.4 ml/min; Est GFR (African American) 44.8; Est GFR (Non-African American) 38.6; Potassium 4.1 mmol/L (3.5-5.1)
[2020-07-19] MEDS: amLODIPine BESYLATE 5 MG TAB PO SCH (07:58)
[2020-07-19] MEDS: ASPIRIN 81 MG ECTAB PO SCH (07:58)
[2020-07-19] MEDS: carBAMazepine 200 MG TABLET PO SCH (07:59)
[2020-07-19] MEDS: AMIODARONE 200 MG TAB PO SCH (07:59)
[2020-07-19] MEDS: ISOSORBIDE MONO EXTENDED REL 60 MG TABCR PO SCH (08:00)
[2020-07-19] MEDS: PANTOprazole 40 MG TAB PO SCH (08:00)
[2020-07-19] MEDS: FUROSEMIDE 40 MG TAB PO SCH (08:01)
[2020-07-19] MEDS: METOPROLOL SUCC 25MG EXT REL TAB PO SCH (08:01)
[2020-07-19] MEDS: MAGNESIUM OXIDE 400 MG TAB PO SCH ×2 (08:02→19:54)
[2020-07-19] MEDS: CLOPIDOGREL BISULFATE 75 MG TAB PO SCH (08:02)
[2020-07-19] MEDS: FOLIC ACID 400 MCG TAB PO SCH (08:03)
[2020-07-19] MEDS: HEPARIN SOD 5,000 UNIT/0.5 ML VIAL SQ SCH ×2 (08:03→19:54)
[2020-07-19] MEDS: CHECK fentaNYL PATCH PLACEMENT SCH ×5 (08:04→23:26)
[2020-07-19] MEDS: fentaNYL 25 MCG/HR TDSY TD SCH (08:05)
[2020-07-19] MEDS: INSULIN ASPART 100 UNITS/ML 3 ML PEN SC SCH ×4 (08:06→20:38)
[2020-07-19] MEDS: INSULIN GLARGINE SOLOSTAR 100 UNITS/ML 3 ML PEN SC SCH ×2 (08:07→20:38)
--- NOTE | 2020-07-19 18:47 | Hospitalist Progress Note ---
Date of Service July 19, 2020 Assessment & Plan (1) Fall: weakness/deconditioning as cause PT/OT eval and treat and anticipate need for some form of rehab at [place] -- see below on "discharge planning issues" (2) Contusion of flank: and abd. fortunately no worrisome features on exam serial exams, low threshold to repeat CT if any worsening but has been (3) Vomiting: resolved. probably constipation and med ADR from antibiotic as outpt (4) MARY (acute kidney injury): now ok - follow - on diuretics but doing better (5) Acute hyponatremia: likely from vomiting. possibly from fluid overload. continue to follow periodically (6) Anemia: (7) Hematoma of left hip: (8) Paroxysmal atrial fibrillation: rate controlled, not on anticoagulation now due to multiple falls. (9) NSTEMI (non-ST elevated myocardial infarction): (10) Right ureteral stone: (11) Chronic diastolic heart failure: acute on chronic mixed systolic and diastolic CHF was cause of dyspnea - now improved w diuretics, follow (12) Discharge planning issues: discussed with patient repeatedly and increasingly bluntly that i harbor grave concerns about her being safe at home - her weakness, PT evals, and current track record of falls is very concerning for fall with trauma that might be worse than what she's already suffered, and easily could be enough to forever take away her independence. she is desperate to go home and as we try to discuss things further she really just centers on begging and pleading. i inform her that she is free to make her own decisions but this is one that i strongly disagree with. she can choose to go home, but i would refuse to recommend it as i believe it is absolutely not in her best interest, and quite dangerous. she continues to beg/plead but i inform her that i can't force her to do anything but also cannot change my recommendations because it is not what she would want to hear. encouraged that it would be ok for "me to be the bad adela" if we both believe that this is what is right for her. Admission and Anticipated Discharge Date Admission Date: July 16, 2020 Subjective hard to get true HPI or ROS from pt - repeatedly asking to go home, when trying to discuss situation she mostly turns up intensity of desperation in her pleas rather than discussing things rationally. breathign seems better and eating seems ok. no clear sign that she's any less weak. disucssed with twice on the phone today - he really doesn't feel like she is safe at home. worried about falls. wants her to get stronger - really wants her to go to rehab. later i'm asked to call him again - he calls her while i'm in the room so i discuss with both of them - although mostly she tries to talk over the situation to bargain and beg. he seems to feel pressured but really doesn't want her home until he's safe. she doesn't really have any m eaningful discussions on fall risk and seems to blind herself to the recent falls she has - instead promising that she won't fall, promising that she won't break anything, but not really acknowledging that she has had so many falls vitals noted no physical distress, saw 3 different times today to try to discuss dispo- each time she deteriorates into essentially loudly and repetitively begging heent nc at mmm breathing unlabored no accessory muscles no conversational dyspnea skin no rashes no pallor or icterus ongoing tremor still weak - when i ask her to stand she nearly falls backwards within 1 second of her first attempt Review of Systems Review of Systems: All systems reviewed & are unremarkable except as noted in HPI & below essentially unable to obtain due to her fixation on begging for discharge Physical Exam Physical Exam: as above accidentally texted in "subjective' portion as well Results & Data Results & Data ([facility]) Vital Signs (Past 12 Hours) Vital Signs Temp Pulse Resp BP BP Pulse Ox 07/19/20 16:20 98.2 F 65 18 159/65 H 97 07/19/20 11:51 97.5 F L 71 20 153/63 H 92 07/19/20 09:14 76 145/66 H 07/19/20 07:51 98.1 F 82 20 170/68 H 92 PG Care Time/CCT Total # of Minutes Spent Total Time Spent with Patient: Total time spent is greater than 50% in coordination of care (as documented) at patient's floor/unit and/or counseling p atient: greater than 30 spread across 3 separate visits to the patient as well as a separate 10+ min phone call w (second phone call w was at the same time i was in the room for third visit w patient) Coding Level of Care Code 11761 Subseq Hosp Care Lvl 2 Diagnoses Fall W19.XXXA Encounter type: initial encounter Contusion of flank S30.1XXA Encounter type: initial encounter Vomiting R11.2 Nausea presence: with nausea Vomiting Intractability: non-intractable Vomiting type: unspecified MARY (acute kidney injury) N17.9 Acute hyponatremia E87.1 Anemia D64.9 Anemia type: unspecified type Hematoma of left hip S70.02XA Paroxysmal atrial fibrillation I48.0 NSTEMI (non-ST elevated myocardial infarction) I21.4 Right ureteral stone N20.1 Chronic diastolic heart failure I50.32 Discharge planning issues Z02.9 (1) Fall Encounter type: initial encounter Qualified Code(s): W19.XXXA - Unspecified fall, initial encounter (2) Contusion of flank Encounter type: initial encounter Qualified Code(s): S30.1XXA - Contusion of abdominal wall, initial encounter (3) Vomiting Nausea presence: with nausea Vomiting Intractability: non-intractable Vomiting type: unspecified Qualified Code(s): R11.2 - Nausea with vomiting, unspecified (4) Anemia Anemia type: unspecified type Qualified Code(s): D64.9 - Anemia, unspecified
--- NOTE | 2020-07-19 19:03 | Billing Data ---
Date of Service July 19, 2020 Coding Level of Care Code 53635 Prolonged Care (int'l)
[2020-07-19] MEDS: LORazepam 0.5 MG TAB PO PRN (19:53)
[2020-07-19] MEDS: ROSUVASTATIN CALCIUM 5 MG TAB PO SCH (19:55)
[2020-07-20] MEDS: LEVOTHYROXINE SODIUM 100 MCG TABLET PO SCH (05:56)
[2020-07-20] MEDS: CHECK fentaNYL PATCH PLACEMENT SCH ×2 (07:55→15:34)
[2020-07-20] MEDS: carBAMazepine 200 MG TABLET PO SCH (07:56)
[2020-07-20] MEDS: amLODIPine BESYLATE 5 MG TAB PO SCH (07:56)
[2020-07-20] MEDS: ISOSORBIDE MONO EXTENDED REL 60 MG TABCR PO SCH (07:57)
[2020-07-20] MEDS: ASPIRIN 81 MG ECTAB PO SCH (07:58)
[2020-07-20] MEDS: PANTOprazole 40 MG TAB PO SCH (07:58)
[2020-07-20] MEDS: AMIODARONE 200 MG TAB PO SCH (07:59)
[2020-07-20] MEDS: METOPROLOL SUCC 25MG EXT REL TAB PO SCH (08:00)
[2020-07-20] MEDS: MAGNESIUM OXIDE 400 MG TAB PO SCH (08:00)
[2020-07-20] MEDS: FOLIC ACID 400 MCG TAB PO SCH (08:00)
[2020-07-20] MEDS: HEPARIN SOD 5,000 UNIT/0.5 ML VIAL SQ SCH (08:01)
[2020-07-20] MEDS: FUROSEMIDE 40 MG TAB PO SCH (08:01)
[2020-07-20] MEDS: POLYETHYLENE (MIRALAX) 17 GM PACK PO SCH (08:02)
[2020-07-20] MEDS: CLOPIDOGREL BISULFATE 75 MG TAB PO SCH (08:02)
[2020-07-20] MEDS: INSULIN GLARGINE SOLOSTAR 100 UNITS/ML 3 ML PEN SC SCH (08:05)
[2020-07-20] MEDS: INSULIN ASPART 100 UNITS/ML 3 ML PEN SC SCH ×2 (08:06→11:45)
[2020-07-20] MEDS: ACETAMINOPHEN 325 MG TAB PO PRN (15:33)
--- NOTE | 2020-07-20 19:44 | Discharge Summary ---
Date of Service July 20, 2020 Admission HPI Per Admitting Provider Luisana Muhammad is a 80-year-old female with past medical history of recurrent falls, anemia, supratherapeutic INR, CVA, chronic diastolic heart failure, CKD, A. 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 Patient reports that she has regular recurrent falls several times a week. She feels that she has had more falls in the last week, and has felt globally weak for 2-1/2 weeks. She was seen as an outpatient for difficulty urinating and was diagnosed with a urinary tract infection for which she was prescribed antibiotics, but which she did not take because she had a fall to her right side with ecchymoses and subsequent onset of nausea and vomiting. She reports that she fell 4 days ago (Tuesday) and had pain in her right abdomen across to the left abdomen. She has an overlying bruise. She reports she is not sure why she fell, but notes it is not uncommon for her. She reports she is blind at baseline due to diabetic complications and can only see shadows and lights. She lives in a 1 floor flume with her and 2 grandchildren. She denies prior illnesses, and denies fever, chills, diarrhea. She is constipated and last had a bowel movement 4 to 5 days ago. She has felt lightheaded or dizzy a couple of times a month for "a while ". Since Tuesday she has had increased nausea and vomiting worsened with food. She is not in any pain at rest, but she has 7/10 pain with movement. Her belly feels diffusely tender. She endorses a dry cough in the morning which she thinks is allergies and improves throughout the day, denies productive cough. She has not had any night sweats. Medical history: Reviewed Medications: Reviewed in EMR, patient is a poor historian of her medications Surgical history: Reviewed Social: Denies tobacco, alcohol, recreational drug use. She lives with 2 grandchildren and her . CODE STATUS: DNR/DNI, may want to patient for declining respiratory status. Principal Diagnosis weakness/deconditioning acute on chronic systolic chf Discharge Exam gen - awake and alert, angry but no physical distress. heent nc at mmm breathing unlabored no accessory muscles good effort skin no rashes no pallor or icterus. ongoing essential tremor. Discharge Data Allergies Allergy/AdvReac Type Severity Reaction Status Date / Time allopurinol Allergy Unknown COUGH Verified 07/15/20 22:15 blue dye Allergy Unknown BRILLIANT Verified 07/15/20 22:15 BLUE FCF dimethyl fumarate Allergy Unknown UNKNOWN Verified 07/15/20 22:15 Consultations 07/15/20 20:53 ED Decision to Admit Stat 07/17/20 13:30 Consult Pulmonology Routine Ordered Studies 07/15/20 18:06 CT abd pelvis wo con Stat 07/15/20 18:10 CT cervical spine wo con Stat CT chest wo con Stat CT head/brain wo con Stat Hospital Course (1) Fall: weakness/deconditioning as cause PT/OT eval and treat and going to rehab (2) Contusion of flank: and abd. fortunately no worrisome features on exam clinically this essentially has appeared to resolve (3) Vomiting: resolved. probably constipation and med ADR from antibiotic as outpt (4) MARY (acute kidney injury): now ok - but follow closely - BMP ~2-3 days at rehab (5) Acute hyponatremia: likely from vomiting. possibly from fluid overload. continue to follow periodically - as above w BMP (6) Anemia: (7) Hematoma of left hip: (8) Paroxysmal atrial fibrillation: rate controlled, not on anticoagulation now due to multiple falls. (and given the severity of her falls, this situation actually appears reasonable to be holding anticoagulation) (9) NSTEMI (non-ST elevated myocardial infarction): (10) Right ureteral stone: (11) Chronic diastolic heart failure: acute on chronic mixed systolic and diastolic CHF was cause of dyspnea - now improved w diuretics, follow - lasix 40mg daily scheduled for now, follow BMP every 2-3 days for now. low Na (12) Discharge planning issues: bitterly (her own choice of terminology) accepts going to rehab. home situation with her severity of weakness appears that it would be imminently dangerous but she was very adamant about wanting to go home. spoke w on phone several times last 2 days and he was fearful of her having serious falls. extensive discussions w pt - who finally begrudgingly accepted going to rehab. Total Time Total Time Spent Total Time Spent (In Minutes): >30 Discharge Plan Discharge Items Patient Disposition: Transfer Inpatient Rehab Fac Reason For Visit: FALL, ABDOMINAL PAIN Discharge Diagnosis: fall, weakness, CHF Condition on Discharge: Good Activity: Per Instructions section Activity Comment: per PT and OT Non-emergency contact: Primary Care Provider Call non-emergency contact if: you have any medication questions and your symptoms worsen Follow-up/Referrals: Chris Reis PA-C [Primary Care Provider] - Diet: Low Sodium (2gm) Addtl Attending Provider Instructions: falls and weakness -has had an overall decline w deconditioning and weakness - appears that a few medical insults (acute on chronic CHF, nausea/vomitign) hastened her decline, but generally and overall she shows significant weakness - but has the goal of being able to get back home again and therefore PT/OT assistance at rehab is requested -please note that she is quite upset about not being able to be home, and may require significant redirection to keep her on track - she does seem to respond to nausea/vomiting -resolved and now she is eating well - this appeared to be partly from side effect of antibiotic (prescribed as an outpt ~1wk prior to admission) and one part constipation (so please follow bowels and adjust bowel regimen accordingly) acute on chronic mixed CHF - came in w mild pulmonary edema causing worsening of her chronic dyspnea; outpatient regimen is 40mg lasix daily PRN -- here after an initial IV diuresis (a few days of 40mg IV) we've had her on 40mg po daily and she is doing well - since this is a relative increase from her home dosing, would follow closely and check BMP every 2-3 days for now Pending Studies at Discharge: No Stand-Alone Forms: My [facility] Skilled Items Patient informed of condition?: Yes DNR: Yes Discharge Level of Care: Acute rehab Communicable Disease: No Discharge Prognosis: Stable Lines: None Urinary Catheter: Yes Medications and DC Order Prescriptions: New furosemide 40 mg Tablet 40 mg PO QAM Qty: 30 RF: 0 insulin aspart U-100 [Novolog Flexpen U-100 Insulin] 100 unit/mL (3 mL) Insulin Pen 1 unit SC ACHS Qty: 1 RF: 0 Lantus Solostar U-100 Insulin 100 unit/mL (3 mL) Insulin Pen 8 unit SC BID Qty: 1 RF: 0 Continued biotin 5 mg tablet 5 tab PO DAILY RF: 0 aspirin 81 mg tablet,delayed release (DR/EC) 81 mg PO DAILY RF: 0 buspirone 10 mg tablet 10 mg PO BID PRN (Reason: Anxiety) RF: 0 levothyroxine [Synthroid] 100 mcg tablet 100 mcg PO DAILY RF: 0 lorazepam 0.5 mg tablet 0.5 mg PO DAILY PRN (Reason: Anxiety) RF: 0 nitroglycerin 0.4 mg tablet, sublingual 0.4 mg SL Q5M PRN (Reason: Chest Pain) RF: 0 senna 8.6 mg Capsule 8.6 mg PO BID PRN (Reason: Constipation) RF: 0 acetaminophen [Tylenol] 325 mg Tablet 650 mg PO Q6 PRN (Reason: Pain) RF: 0 folic acid 400 mcg Tablet 0.4 mg PO DAILY RF: 0 ergocalciferol (vitamin D2) [Vitamin D2] 1,250 mcg (50,000 unit) Capsule 1,250 mcg PO WK RF: 0 diclofenac sodium 1 % Gel 2 g TOPICAL QID PRN (Reason: Pain) RF: 0 amiodarone 200 mg tablet 100 mg PO DAILY RF: 0 metoprolol succinate 25 mg Tablet Extended Release 24 Hr 25 mg PO QAM Qty: 1 RF: 0 isosorbide mononitrate 120 mg tablet extended release 24 hr 120 mg PO DAILY RF: 0 rosuvastatin 5 mg tablet 5 mg PO HS RF: 0 clopidogrel 75 mg Tablet 75 mg PO QAM Qty: 30 RF: 0 albuterol sulfate 2.5 mg /3 mL (0.083 %) Solution For Nebulization 2.5 mg INHALATION Q4H PRN (Reason: Shortness Of Breath Or Wheezing) RF: 0 amlodipine [Norvasc] 5 mg tablet 10 mg PO DAILY RF: 0 omeprazole 40 mg capsule,delayed release(DR/EC) 40 mg PO DAILY RF: 0 carbamazepine [Tegretol] 200 mg Tablet 200 mg PO DAILY RF: 0 docusate sodium 100 mg Capsule 100 mg PO TID RF: 0 fentanyl [Duragesic] 25 mcg/hr patch 72 hour 25 mcg topical [id number] RF: 0 lisinopril 2.5 mg tablet 5 mg PO DAILY RF: 0 vitamin E 1,000 unit Tablet 1,000 tab PO DAILY RF: 0 Discontinued pioglitazone 15 mg tablet 15 mg PO DAILY RF: 0 glipizide 10 mg tablet 10 mg PO BID RF: 0 Trulicity 1.5 mg/0.5 mL pen injector 0 mg SQ WEEKLY RF: 0 metformin 500 mg tablet 500 mg PO QAM RF: 0 gabapentin 800 mg tablet 800 mg PO TID Qty: 270 RF: 3 potassium chloride [Klor-Con M10] 10 mEq Tablet,Er Particles/Crystals 10 meq PO DAILY PRN (Reason: WHEN TAKES LASIX.) RF: 0 furosemide 40 mg tablet 40 mg PO DAILY PRN (Reason: Edema) RF: 0 propranolol [Inderal LA] 60 mg capsule,extended release 24 hr 60 mg PO DAILY RF: 0 sulfamethoxazole-trimethoprim 800-160 mg tablet 1 tab PO BID RF: 0 warfarin [Jantoven] 1 mg Tablet 1 mg PO .DAILY UD RF: 0 Discharge Orders: Discharge Order (Routine); Ordered 07/20/20 Ordered By: Modesto Szymanski/Other Patient Handouts: Long-Term Complications of Diabetes, Managing Type 2 Diabetes Admission Data Admit Date/Time: 07/16/20 00:09 Attending Provider: Modesto Pate Admit Provider: Roland Campos Primary Care Provider: Chris Reis Other Providers: He Marinelli ; Steve Velez ; [facility] Other Interventions: Discharge Summary Assessment (RN) Last Done: 07/20/20 15:52 Coding Level of Care Code D/C Day Management >30 mins Diagnoses Fall W19.XXXA Encounter type: initial encounter Contusion of flank S30.1XXA Encounter type: initial encounter Vomiting R11.2 Nausea presence: with nausea Vomiting Intractability: non-intractable Vomiting type: unspecified MARY (acute kidney injury) N17.9 Acute hyponatremia E87.1 Anemia D64.9 Anemia type: unspecified type Hematoma of left hip S70.02XA Paroxysmal atrial fibrillation I48.0 NSTEMI (non-ST elevated myocardial infarction) I21.4 Right ureteral stone N20.1 Chronic diastolic heart failure I50.32 Discharge planning issues Z02.9
--- NOTE | 2020-08-04 11:21 | Coding Query ---
PRESENT ON ADMISSION QUERY To promote full compliance with coding requirements relating to pateint care, physician participation is requested in all cases of rivet catcher uncertainty. Please assist us with the question(s) below: Please place an X within the parenthesis (x). The following diagnosis(es) listed in this patient's medical record require physician assistance to determine if they were present on admission (POA) or not. Please advise for each diagnosis whether it was present on admission, not present on admission, or if it was clinically undetermined. 1. ACUTE AND CHRONIC RESPIRATORY FAILURE (regarding the Acute Respiratory Failure diagnosis - documentation begins on PN 07/16/20) ( x) Present On Admission ( ) Not Present On Admission ( ) Clinically Undetermined 2. ACUTE ON CHRONIC MIXED SYSTOLIC AND DIASTOLIC CHF (regarding the Acute CHF - documentation begins on PN 07/19/20) (x ) Present On Admission ( ) Not Present On Admission ( ) Clinically Undetermined Thank you Belinda Flynn *Definition of the present on admission (POA)-Present on admission is defined as present at the time the order for inpatient admission occurs. Conditions that develop during an outpatient encounter prior to a written order for inpatient admission (including emergency department, observation, or outpatient surgery) are considered present on admission. MTDD
--- NOTE | 2020-08-04 11:25 | Coding Query ---
CODING QUERY To promote full compliance with coding requirements relating to patient care, provider participation is requested in all cases of sleep tech uncertainty. Please assist us with the question(s) below: Coding Question(s): NSTEMI is documented in the record and on the Discharge Summary as well as documentation of history of NSTEMI in July 2009. Please specify below, in your clinical opinion, regarding NSTEMI documentation. ( ) Acute NSTEMI treated this admission ( x) History of NSTEMI ( ) Other: Please Specify Physician's Response(s): Thank you Belinda Flynn Principal Diagnosis: "that condition established after study, to be chiefly responsible for occasioning the admission of the patient to the hospital for care." Co-Existing Principal Diagnosis: "when two or more diagnoses equally meet the criteria for principal diagnosis as determined by the circumstances of admission, diagnostic work up, and/or therapy provided, and the Alphabetic Index, Tabular List, or another coding guideline does not provide sequencing direction, any one of the diagnoses may be sequenced first." "When the physician has documented what appears to be a current diagnosis in the body of the record, but has not included the diagnosis in the final diagnostic statement, the physician should be asked whether the diagnosis should be added." ([facility]oding [facility] 2 QTR90. p3-4) MANA
== END 2020-07-20 17:03 | DRG 91 ==
LOC: ED 17:52 → 2W 07-16 00:09 → SUATTDRO 07-16 00:09 → 2W 07-16 02:40

== ENCOUNTER 2020-07-30 15:05 | Inpatient (IN) ==
--- NOTE | 2020-07-30 15:31 | Emergency Department Note ---
Impression & Plan Acute confusion, Anemia, Hypotension, MARY (acute kidney injury), Syncope, Acute dehydration ED Provider Note NAME: LAURYN JO AGE: 80 SEX: F : 1940 ARRIVES VIA: Ambulance INFORMANT: [Patient][ems, nursing] ED PROVIDER(S): [Marty Shore MD] CHIEF COMPLAINT: Confusion HISTORY OF PRESENT ILLNESS: The patient is a 80-year-old female presents to the ER with a bout of confusion. She was by report, found by her family moaning and confused. EMS was summoned. She was confused upon EMS arrival. The patient does have a fentanyl patch and her pupils were reported to be pinpoint. She was given 0.2 mg of Narcan IV and the patient became more awake and interactive. She is now complaining of being cold and having the shivers and complaining of some pain throughout her body. Patient states that she does not need to be here, she was just in the hospital and does not feel she needs to come back into the hospital. Patient currently denies any headache or chest pain, she is not short of breath, she has no abdominal pain. The patient states that she is more agitated that she is here at the hospital than anything. Of note, the BSG was recorded to be 87. She was given a 500 cc saline bolus for a reported low blood pressure. The patient's arrived and states that in the last few days, the patient has passed out twice. He has noticed some confusion at times, especially today. REVIEW OF SYSTEMS: See HPI for pertinent positives and negatives. A total of ten systems were reviewed and were otherwise negative. PMHx/PSHx: See Below SOCIAL HISTORY: See Below. PHYSICAL EXAM: GENERAL: Patient is in mild distress, seems agitated and upset. HEENT: No acute trauma, normocephalic atraumatic, mucous membranes moist, no nasal congestion, no scleral icterus. NECK: No stridor, no adenopathy, no meningismus, trachea is midline. LUNGS: Clear to auscultation bilaterally, no wheeze, no rhonchi, breath sounds equal. HEART: No obvious murmur but her heart tones are distant. There seems to be a regular rate and rhythm. ABDOMEN: Soft, nontender, bowel sounds positive, no hernias, no peritonitis. EXTREMITIES: No cyanosis or edema, full range of motion of all the joints without pain or difficulty, no signs for acute trauma. NEUROLOGIC: Oriented x 3, no acute motor or sensory deficits, no focal weakness. She is in general just trembling. SKIN: No rash, no jaundice, no diaphoresis. DIFFERENTIAL DIAGNOSIS: Infection, dehydration, metabolic abnormality, accidental narcotic overdose, stroke, TIA, intracranial bleeding, UTI, hypo/hyperglycemia, electrolyte disturbance, anemia, hypoxia, cardiac sources, intracerebral event, toxicologic, neurologic, as well as other pathologies. EMERGENCY DEPARTMENT COURSE/PROCEDURES: ECG: Indication was confusion and weakness. The ECG shows a sinus bradycardia with a first-degree AV block. The rate is 54. There is no ST elevation, no PVCs. The QTc is 458. Continuous Cardiac Monitoring: An order was placed for continuous cardiac monitoring. The monitor shows a rate of 64 with sinus rhythm with a first- degree AV block. Critical Care Note: I have personally spent 39 minutes of critical care time in the direct management of this patient. This includes bedside care, interp retation of diagnostic studies, and testing, discussion with consultants, patient, and family members, and other required patient management activities. This 39 minutes is in excess of all separately billable procedures. MEDICAL DECISION MAKING: There is no leukocytosis. The patient is anemic, she does have a history of the same although, today's value is somewhat lower than baseline. There is a normal platelet count. No coagulopathy. There is evidence for acute kidney injury/dehydration with a creatinine of 3.5. Ammonia level is not elevated. There is no concerning liver enzyme elevation. The patient's TSH was somewhat elevated however, the T4 was normal. Urinalysis does not show infection. Brain CT does not show any acute bleed or mass-effect. Chest film did not show pneumonia or significant CHF. Covid testing was negative. On exam, there were no focal neurologic deficits. Patient received IV saline, she received a total of 1 L. She was given IV Toradol for pain, IV Tylenol for pain. Patient had a change in mental status. She was moaning and unresponsive. She received Narcan IV and seemed to come around. She does wear a fentanyl patch. She was hypotensive initially as per EMS. The patient's mental state has improved significantly, she has not been confused since she has been here in the ED. Her blood pressure is improved since receiving IV fluids. Given her syncope reported by the , given the acute kidney injury, her low blood pressure, her confusion, I do think a hospital stay is warranted. I spoke to the patient's family, I spoke to the patient. I did talk with case management. The on-call hospitalist was consulted. Past Med/Surg History Medical History Acute systolic CHF (congestive heart failure) MARY (acute kidney injury) Anemia of chronic disease Atrial fibrillation Bradycardia CAD (coronary artery disease) July 2009 -NSTEMI 2009-2 KYLER to circumflex obtuse marginal, 1 KYLER to RCA Carotid artery stenosis CKD (chronic kidney disease), stage III DM type 2 (diabetes mellitus, type 2) Dyslipidemia History of DVT (deep vein thrombosis) Hypertension Hypothyroidism Interstitial lung disease Legally blind Multiple sclerosis Obesity (BMI 30-39.9) Seizure disorder Shortness of breath Surgical History History of hysterectomy History of tonsillectomy Hx of cholecystectomy Family History Mother Heart disease Social History Smoking Status: Unknown if ever smoked Hx Alcohol Use: No Hx Substance Use: No Preferred Language: Yoruba Communication Ability: Impaired Church History Teacher Required: No Beliefs That Will Affect Care: None marital status: Current Living Situation: Spouse and Family How many Children do You have: 4 Feels Safe at Home: Yes Assistive Devices: Denture - Upper, Denture - Lower, Hearing Aid - Bilateral, Oxygen - Continuous and Walker Allergies Allergies Allergy/AdvReac Type Severity Reaction Status Date / Time allopurinol Allergy Unknown COUGH Verified 07/15/20 22:15 blue dye Allergy Unknown BRILLIANT Verified 07/15/20 22:15 BLUE FCF dimethyl fumarate Allergy Unknown UNKNOWN Verified 07/15/20 22:15 Home Meds Home Medications Medication Instructions Recorded Confirmed aspirin 81 mg tablet,delayed 81 mg PO DAILY tab 05/25/19 07/15/20 release biotin 5 mg tablet 5 tab PO DAILY tab 05/25/19 07/15/20 buspirone 10 mg tablet 10 mg PO BID PRN 09/03/19 07/15/20 levothyroxine 100 mcg tablet 100 mcg PO DAILY 09/03/19 07/15/20 lorazepam 0.5 mg tablet 0.5 mg PO DAILY PRN 09/03/19 07/15/20 nitroglycerin 0.4 mg sublingual 0.4 mg SL Q5M PRN 09/03/19 07/15/20 tablet acetaminophen [Tylenol] 650 mg PO Q6 PRN 09/19/19 07/15/20 ergocalciferol (vitamin D2) 1,250 mcg PO WK 09/19/19 07/15/20 [Vitamin D2] folic acid 0.4 mg PO DAILY 09/19/19 07/15/20 senna 8.6 mg PO BID PRN 09/19/19 07/15/20 isosorbide mononitrate 120 mg PO DAILY 05/13/20 07/15/20 rosuvastatin 5 mg PO HS 05/13/20 07/15/20 amiodarone 100 mg PO DAILY 06/12/20 07/15/20 diclofenac sodium 2 g TOPICAL QID PRN 06/12/20 07/15/20 albuterol sulfate 2.5 mg INHALATION Q4H PRN 07/15/20 07/15/20 amlodipine [Norvasc] 10 mg PO DAILY 07/15/20 07/15/20 carbamazepine [Tegretol] 200 mg PO DAILY 07/15/20 07/15/20 docusate sodium 100 mg PO TID 07/15/20 07/15/20 fentanyl [Duragesic] 25 mcg TOPICAL [id number] 07/15/20 07/15/20 lisinopril 5 mg PO DAILY 07/15/20 07/15/20 omeprazole 40 mg PO DAILY 07/15/20 07/15/20 vitamin E 1,000 tab PO DAILY 07/15/20 07/15/20 insulin glargine [Lantus Solostar 16 unit SC BID 07/30/20 07/30/20 U-100 Insulin] promethazine 12.5 mg PO Q6H PRN 07/30/20 07/30/20 propranolol 80 mg PO BID 07/30/20 07/30/20 Previous Rx's Medication Instructions Recorded clopidogrel 75 mg PO QAM #30 tab 05/29/20 metoprolol succinate 25 mg PO QAM #1 tab 06/19/20 furosemide 40 mg PO QAM #30 tab 07/20/20 Results & Data (ED) Vital Signs Vital Signs - 24 hr 07/30/20 15:31 07/30/20 15:41 07/30/20 15:46 Temperature 36.7 C Temperature Source Oral Pulse Rate 53 L 53 L Pulse Rate from SpO2 Sensor Respiratory Rate 24 23 Respiratory Effort / Characteristics Non-Labored Spontaneous Respiratory Depth Normal Respiratory Pattern Regular Blood Pressure 68/54 L 109/49 L Blood Pressure Mean 58 65 Blood Pressure Position Lying Pulse Oximetry 100 100 97 Oxygen Delivery Method Nasal Cannula Nasal Cannula Nasal Cannula Oxygen Flow Rate 3 3 3 Sepsis Recent Fever Within 48 Hours No Sepsis New/Unexplained Change in Mental Status N/A Sepsis Action Taken by Nursing No Action Required 07/30/20 16:40 07/30/20 16:50 07/30/20 17:12 Temperature Temperature Source Pulse Rate 53 L 55 L 53 L Pulse Rate from SpO2 Sensor Respiratory Rate 22 20 24 Respiratory Effort / Characteristics Respiratory Depth Respiratory Pattern Blood Pressure 118/52 L Blood Pressure Mean 83 Blood Pressure Position Pulse Oximetry 97 95 99 Oxygen Delivery Method Nasal Cannula Nasal Cannula Nasal Cannula Oxygen Flow Rate 3 3 3 Sepsis Recent Fever Within 48 Hours Sepsis New/Unexplained Change in Mental Status Sepsis Action Taken by Nursing 07/30/20 18:08 07/30/20 19:03 07/30/20 20:00 Temperature Temperature Source Pulse Rate 54 L 64 Pulse Rate from SpO2 Sensor 60 Respiratory Rate 19 19 21 Respiratory Effort / Characteristics Respiratory Depth Respiratory Pattern Blood Pressure 118/52 L 125/76 Blood Pressure Mean 83 81 Blood Pressure Position Pulse Oximetry 96 95 96 Oxygen Delivery Method Nasal Cannula Nasal Cannula Nasal Cannula Oxygen Flow Rate 3 3 3 Sepsis Recent Fever Within 48 Hours Sepsis New/Unexplained Change in Mental Status Sepsis Action Taken by Residential Medications Current Medication List: was personally reviewed by me Laboratory Data Attestation: I reviewed the patient's lab results. Result diagrams: 07/30/20 16:45 07/30/20 16:45 Lab Results 07/30/20 07/30/20 07/30/20 Range/Units 16:45 16:45 16:45 WBC 10.60 (4.8-10.8) K/uL RBC 2.35 L (4.2-5.4) M/uL Hgb 7.6 L (12.0-16.0) g/dL Hct 23.7 L (37-47) % MCV 100.9 H (80-100) fL MCH 32.3 (25-34) pg MCHC 32.1 (32-36) g/dL RDW Std Deviation 51.8 H (36.4-46.3) fL RDW Coeff of Gillian 14.1 (11.5-14.5) % Plt Count 267 (130-400) K/uL MPV 10.3 (7.4-10.4) fL Immature Gran % (Auto) 0.2 % Neut % (Auto) 86.1 % Lymph % (Auto) 4.6 % Lyman % (Auto) 8.2 % Eos % (Auto) 0.8 % Baso % (Auto) 0.1 % Neut # (Auto) 9.13 H (1.4-6.5) K/uL Lymph # (Auto) 0.49 L (1.2-3.4) K/uL Lyman # (Auto) 0.87 H (0.11-0.59) K/uL Eos # (Auto) 0.08 (0-0.5) K/uL Baso # (Auto) 0.01 (0-0.2) K/uL Immature Gran # (Auto) 0.02 (0.00-0.02) K/uL RBC Morphology Unremarkable PT (9.0-12.0) Seconds INR (0.9-1.1) APTT (21.0-31.0) Seconds PTT Ratio Sodium 132 L (136-145) mmol/L Potassium 5.4 H (3.5-5.1) mmol/L Chloride 100 (98-107) mmol/L Carbon Dioxide 28 (21-32) mmol/L Anion Gap 4.0 (3-11) BUN 47 H (7-18) mg/dl Creatinine 3.50 H (0.6-1.2) mg/dl Est Cr Clr Drug Dosing 13.1 ml/min Est GFR ( Amer) 13.6 Est GFR (Non-Af Amer) 11.8 BUN/Creatinine Ratio 13.3 (10-20) Glucose 127 H (70-99) mg/dl Calcium 8.6 (8.5-10.1) mg/dl Magnesium 2.1 (1.8-2.4) mg/dl Total Bilirubin 0.3 (0.2-1) mg/dl AST 18 (15-37) U/L ALT 25 (12-78) U/L Alkaline Phosphatase 71 (45-117) U/L Ammonia < 10.0 L (11-32) umol/L Troponin I 0.022 (0-0.045) ng/ml Total Protein 6.3 L (6.4-8.2) gm/dl Albumin 3.0 L (3.4-5.0) gm/dl Globulin 3.3 (2.5-4.0) gm/dl Albumin/Globulin Ratio 0.9 (0.9-2) TSH 10.900 H (0.300-4.500) uIu/ml Free T4 1.04 (0.8-1.6) ng/dl Urine Color Urine Appearance (Clear) Urine pH (4.5-7.5) Ur Specific [place] (1.000-1.030) Urine Protein (Negative) Urine Glucose (UA) (Negative) Urine Ketones (Negative) Urine Blood (Negative) Urine Nitrite (Negative) Urine Bilirubin (Negative) Urine Urobilinogen (Negative) Ur Leukocyte Esterase (Negative) Urine RBC (0-4) /hpf Urine WBC (0-5) /hpf Ur Epithelial Cells (0-5) /lpf Ur Renal Epithelial Cell (0-5) /lpf Urine Bacteria (Negative) Hyaline Casts (0-5) /lpf SARS-CoV-2 Ag (Rapid) (Negative) 07/30/20 07/30/20 07/30/20 Range/Units 16:47 17:19 19:00 WBC (4.8-10.8) K/uL RBC (4.2-5.4) M/uL Hgb (12.0-16.0) g/dL Hct (37-47) % MCV (80-100) fL MCH (25-34) pg MCHC (32-36) g/dL RDW Std Deviation (36.4-46.3) fL RDW Coeff of Gillian (11.5-14.5) % Plt Count (130-400) K/uL MPV (7.4-10.4) fL Immature Gran % (Auto) % Neut % (Auto) % Lymph % (Auto) % Lyman % (Auto) % Eos % (Auto) % Baso % (Auto) % Neut # (Auto) (1.4-6.5) K/uL Lymph # (Auto) (1.2-3.4) K/uL Lyman # (Auto) (0.11-0.59) K/uL Eos # (Auto) (0-0.5) K/uL Baso # (Auto) (0-0.2) K/uL Immature Gran # (Auto) (0.00-0.02) K/uL RBC Morphology PT 10.6 (9.0-12.0) Seconds INR 1.0 (0.9-1.1) APTT 22.9 (21.0-31.0) Seconds PTT Ratio 0.8 Sodium (136-145) mmol/L Potassium (3.5-5.1) mmol/L Chloride (98-107) mmol/L Carbon Dioxide (21-32) mmol/L Anion Gap (3-11) BUN (7-18) mg/dl Creatinine (0.6-1.2) mg/dl Est Cr Clr Drug Dosing ml/min Est GFR ( Amer) Est GFR (Non-Af Amer) BUN/Creatinine Ratio (10-20) Glucose (70-99) mg/dl Calcium (8.5-10.1) mg/dl Magnesium (1.8-2.4) mg/dl Total Bilirubin (0.2-1) mg/dl AST (15-37) U/L ALT (12-78) U/L Alkaline Phosphatase (45-117) U/L Ammonia (11-32) umol/L Troponin I (0-0.045) ng/ml Total Protein (6.4-8.2) gm/dl Albumin (3.4-5.0) gm/dl Globulin (2.5-4.0) gm/dl Albumin/Globulin Ratio (0.9-2) TSH (0.300-4.500) uIu/ml Free T4 (0.8-1.6) ng/dl Urine Color Yellow Urine Appearance Clear (Clear) Urine pH 5.5 (4.5-7.5) Ur Specific [place] 1.020 (1.000-1.030) Urine Protein Negative (Negative) Urine Glucose (UA) Negative (Negative) Urine Ketones Negative (Negative) Urine Blood Negative (Negative) Urine Nitrite Negative (Negative) Urine Bilirubin Negative (Negative) Urine Urobilinogen Negative (Negative) Ur Leukocyte Esterase Trace H (Negative) Urine RBC 0-4 (0-4) /hpf Urine WBC 5-10 H (0-5) /hpf Ur Epithelial Cells 0-5 (0-5) /lpf Ur Renal Epithelial Cell 0-5 (0-5) /lpf Urine Bacteria Negative (Negative) Hyaline Casts 0-5 (0-5) /lpf SARS-CoV-2 Ag (Rapid) Negative (Negative) Administered Medications Sodium Chloride (Nss) 500 mls @ 80 mls/hr IV .Q6H15M NATHANIEL Stop: 08/29/20 19:29 Last Admin: 07/30/20 19:32 Dose: 80 mls/hr Documented by: [id number] Discontinued Medications Acetaminophen (Acetaminophen 1000 Mg/100 Ml Iv) 1,000 mg IV NOW STA Stop: 07/30/20 15:58 Last Admin: 07/30/20 16:15 Dose: 1,000 mg Documented by: [id number] Sodium Chloride (Nss 1000ml) 500 mls @ 999 mls/hr IV .Q31M ONE Stop: 07/30/20 16:28 Last Infusion: 07/30/20 16:46 Dose: 0 mls/hr Documented by: [id number] Admin: 07/30/20 16:15 Dose: 999 mls/hr Documented by: [id number] Sodium Chloride (Nss 1000ml) 500 mls @ 999 mls/hr IV .Q31M ONE Stop: 07/30/20 17:58 Last Infusion: 07/30/20 18:05 Dose: 0 mls/hr Documented by: [id number] Admin: 07/30/20 17:34 Dose: 999 mls/hr Documented by: [id number] Ketorolac Tromethamine (Ketorolac Tromethamine 15 Mg/Ml Vial) 10 mg IV NOW ONE Stop: 07/30/20 15:58 Last Admin: 07/30/20 16:15 Dose: 10 mg Documented by: [id number] Imaging Data Radiologist's Impression: XR chest 1V portable CLINICAL HISTORY: weakness COMPARISON STUDY: 07/15/2020 FINDINGS: The heart remains borderline enlarged. There is mild pulmonary vascular prominence with residual mild pulmonary venous hypertension. There is no overt edema. There are no pleural effusions. There is no focal pulmonary cons olidation.[ IMPRESSION: 1. Cardiomegaly and radiographic evidence of mild pulmonary venous hypertension. No evidence of focal pulmonary consolidation CT head/brain wo con CLINICAL HISTORY: confusion ACUTE CHANGE IN MENTAL STATUS COMPARISON STUDY: 07/15/2020 TECHNIQUE: Axial CT of the brain is performed from the vertex to the skull base. IV contrast was not administered for this examination. A dose lowering technique was utilized adhering to the principles of ALARA. CT DOSE: 853.38 mGy.cm FINDINGS: No intra or extra-axial mass lesions are visualized. There is no CT evidence of acute cortical infarction. There is no evidence of midline shift. There is no acute hemorrhage. No calvarial fractures are visualized. There are moderately extensive white matter hypodensities likely on a small vessel basis. 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 There is no evidence of pathologic ventricular dilatation. There is no evidence of acute sinusitis IMPRESSION: No acute intracranial findings Discharge Plan Visit Data Chief Complaint: Altered Mental Status Stated Complaint: AMS ED Provider: Marty Shore Discharge Problem: Acute confusion, Anemia, Hypotension, MARY (acute kidney injury), Syncope, Acute dehydration Patient Disposition: Admitted As Inpatient Condition: Fair Forms Stand Alone Forms: [facility] Prescriptions Prescriptions: No Action biotin 5 mg tablet 5 tab PO DAILY RF: 0 aspirin 81 mg tablet,delayed release (DR/EC) 81 mg PO DAILY RF: 0 buspirone 10 mg tablet 10 mg PO BID PRN (Reason: Anxiety) RF: 0 levothyroxine [Synthroid] 100 mcg tablet 100 mcg PO DAILY RF: 0 lorazepam 0.5 mg tablet 0.5 mg PO QPM PRN (Reason: Anxiety) RF: 0 nitroglycerin 0.4 mg tablet, sublingual 0.4 mg SL Q5M PRN (Reason: Chest Pain) RF: 0 senna 8.6 mg Capsule 8.6 mg PO BID PRN (Reason: Constipation) RF: 0 acetaminophen [Tylenol] 325 mg Tablet 650 mg PO Q6 PRN (Reason: Pain) RF: 0 folic acid 400 mcg Tablet 0.4 mg PO DAILY RF: 0 ergocalciferol (vitamin D2) [Vitamin D2] 1,250 mcg (50,000 unit) Capsule 1,250 mcg PO WK RF: 0 diclofenac sodium 1 % Gel 2 g TOPICAL QID PRN (Reason: Pain) RF: 0 amiodarone 200 mg tablet 100 mg PO DAILY RF: 0 metoprolol succinate 25 mg Tablet Extended Release 24 Hr 25 mg PO QAM Qty: 1 RF: 0 Lantus Solostar U-100 Insulin 100 unit/mL (3 mL) insulin pen 16 unit SC BID RF: 0 propranolol 80 mg tablet 80 mg PO BID RF: 0 promethazine 12.5 mg tablet 12.5 mg PO Q6H PRN (Reason: Nausea) RF: 0 isosorbide mononitrate 120 mg tablet extended release 24 hr 120 mg PO DAILY RF: 0 rosuvastatin 5 mg tablet 5 mg PO HS RF: 0 clopidogrel 75 mg Tablet 75 mg PO QAM Qty: 30 RF: 0 albuterol sulfate 2.5 mg /3 mL (0.083 %) Solution For Nebulization 2.5 mg INHALATION Q4H PRN (Reason: Shortness Of Breath Or Wheezing) RF: 0 amlodipine [Norvasc] 5 mg tablet 10 mg PO DAILY RF: 0 omeprazole 40 mg capsule,delayed release(DR/EC) 40 mg PO DAILY RF: 0 carbamazepine [Tegretol] 200 mg Tablet 200 mg PO DAILY RF: 0 docusate sodium 100 mg Capsule 100 mg PO TID RF: 0 fentanyl [Duragesic] 25 mcg/hr patch 72 hour 25 mcg topical [id number] RF: 0 lisinopril 2.5 mg tablet 5 mg PO DAILY RF: 0 vitamin E 1,000 unit Tablet 1,000 tab PO DAILY RF: 0 furosemide 40 mg Tablet 40 mg PO QAM Qty: 30 RF: 0 Referrals Referrals: Chris Reis PA-C [Primary Care Provider] -
[2020-07-30] MEDS ORDERED: ACETAMINOPHEN 1000 MG/100 ML IV IV STA (15:57)
[2020-07-30] MEDS ORDERED: KETOROLAC TROMETHAMINE 15 MG/ML VIAL IV ONE (15:57)
[2020-07-30] MEDS ORDERED: SODIUM CHLORIDE 0.9% 1000ML 500 ML IV ONE ×2 (15:58→17:28)
[2020-07-30 16:57] LABS: Basophils # (auto) 0.01 K/uL (0-0.2); Basophils % (auto) 0.1 %; Eosinophils # (auto) 0.08 K/uL (0-0.5); Eosinophils % (auto) 0.8 %; Hematocrit (blood only) 23.7 % (37-47); Hemoglobin 7.6 g/dL (12.0-16.0); Immature Granulocytes # (auto) 0.02 K/uL (0.00-0.02); Immature Granulocytes % (auto) 0.2 %; Lymphocytes # (auto) 0.49 K/uL (1.2-3.4); Lymphocytes % (auto) 4.6 %; Mean Corpuscular Hemoglobin 32.3 pg (25-34); Mean Corpuscular Hgb Conc 32.1 g/dL (32-36); Mean Corpuscular Volume 100.9 fL (80-100); Mean Platelet Volume 10.3 fL (7.4-10.4); Monocytes # (auto) 0.87 K/uL (0.11-0.59); Monocytes % (auto) 8.2 %; Neutrophils # (auto) 9.13 K/uL (1.4-6.5); Neutrophils % (auto) 86.1 %; Platelet Count 267 K/uL (130-400); RDW Coefficient of Variation 14.1 % (11.5-14.5); RDW Standard Deviation 51.8 fL (36.4-46.3); Red Blood Count 2.35 M/uL (4.2-5.4)
--- NOTE | 2020-07-30 17:01 | XRay Report ---
XR chest 1V portable CLINICAL HISTORY: weakness COMPARISON STUDY: 07/15/2020 FINDINGS: The heart remains borderline enlarged. There is mild pulmonary vascular prominence with res idual mild pulmonary venous hypertension. There is no overt edema. There are no pleural effusions. Th ere is no focal pulmonary consolidation.[ IMPRESSION: 1. Cardiomegaly and radiographic evidence of mild pulmonary venous hypertension. No evidence of focal pulmonary consolidation ACT 112: Negative or not required by law. Electronically signed by: Adam Khoury M.D. 07/30/2020 4:59 PM
--- NOTE | 2020-07-30 17:08 | CT Scan Report ---
CT head/brain wo con CLINICAL HISTORY: confusion ACUTE CHANGE IN MENTAL STATUS COMPARISON STUDY: 07/15/2020 TECHNIQUE: Axial CT of the brain is performed from the vertex to the skull base. IV contrast was not administered for this examination. A dose lowering technique was utilized adhering to the principles of ALARA. CT DOSE: 853.38 mGy.cm FINDINGS: No intra or extra-axial mass lesions are visualized. There is no CT evidence of acute cortical infarc tion. There is no evidence of midline shift. There is no acute hemorrhage. No calvarial fractures ar e visualized. There are moderately extensive white matter hypodensities likely on a small vessel basis. There are o ld basal ganglia lacunar infarcts. There is no evidence of pathologic ventricular dilatation. There is no evidence of acute sinusitis IMPRESSION: No acute intracranial findings ACT 112: Negative or not required by law. Electronically signed by: Adam Khoury M.D. 07/30/2020 5:06 PM
[2020-07-30 17:13] LABS: RBC Morphology Unremarkable
[2020-07-30 17:21] LABS: BUN Creatinine Ratio 13.3 (10-20); Calcium 8.6 mg/dl (8.5-10.1); Creatinine Clr Calc Pharmacy 13.1 ml/min; Est GFR (African American) 13.6; Est GFR (Non-African American) 11.8; Magnesium 2.1 mg/dl (1.8-2.4); Potassium 5.4 mmol/L (3.5-5.1)
[2020-07-30 17:32] LABS: Albumin Globulin Ratio 0.9 (0.9-2); Bilirubin,Total 0.3 mg/dl (0.2-1); Globulin 3.3 gm/dl (2.5-4.0); Thyroid Stimulating Hormone 10.9 uIu/ml (0.300-4.500); Total Protein 6.3 gm/dl (6.4-8.2); Troponin I 0.022 ng/ml (0-0.045)
[2020-07-30 17:34] LABS: Appearance Urine Clear (Clear); Bilirubin Urine Negative (Negative); Blood Urine Negative (Negative); Color Urine Yellow; Glucose Urine UA Negative (Negative); Ketones Urine Negative (Negative); Leukocyte Esterase Urine Trace (Negative); Nitrite Urine Negative (Negative); Protein Urine Negative (Negative); Urobilinogen Urine Negative (Negative); pH Urine 5.5 (4.5-7.5)
[2020-07-30 17:47] LABS: T4 Free Thyroxine 1.04 ng/dl (0.8-1.6)
[2020-07-30 17:53] LABS: Bacteria Urine Negative (Negative); Epithelial Cell Urine 0-5 /lpf (0-5); Hyaline Casts Urine 0-5 /lpf (0-5); RBC Urine 0-4 /hpf (0-4); Renal Epithelial Cells Urine 0-5 /lpf (0-5)
[2020-07-30] MEDS ORDERED: ACETAMINOPHEN 325 MG TAB PO PRN (19:22)
[2020-07-30] MEDS: SODIUM CHLORIDE 0.9% 500 ML IV SCH (19:32)
--- NOTE | 2020-07-30 19:35 | History & Physical Report ---
Date of Service July 30, 2020 Assessment & Plan (1) Altered mental status: Luisana Muhammad is a 80 yo female with complex PMHx including recurrent falls, parkinsonism, MS, T2DM c/b retinopathy and blindness, ILD, chronic systolic CHF (last echo 05/2020 EF 45-50%), paroxysmal a-fib (rate-controlled) who presented to [facility] ED on 07/30/2020 for altered mental status. AMS - per EMS, patient had Fentanyl patch in place (uses this chronically) and had pinpoint pupils - arousable and quick improvement in mental status after administration of Narcan x1 - A+Ox3 in the ED, Na 132, no sign of hypervolemia or infection, no recent changes in medications per patient's - suspect AMS 2/2 narcotic overdose as Fentanyl patch has 75% urinary excretion and patient has MARY on CKD (see below) --> suspect dehydration is contributing as well - Decreased home Fentanyl patch to 12.5mcg - started light IVFs NSS 80cc/hr - follow A+O status - trend BMP daily MARY on CKD - Cr 3.5, baseline 1.3-1.5 - on home lasix and reports daily vomiting as will be described below - suspect pre-renal injury 2/2 dehydration - light IVFs as above - held nephrotoxic home meds - Lisinopril and Lasix - trend BMP as above Vomiting - NBNB vomiting once daily for several weeks, was on chronic PPI for years but stopped taking this recently - suspect dehydration and subsequent MARY 2/2 vomiting - started Protonix 40 mg PO daily, fluids as above - continue home Promethazine 12.5 mg PO Q6H PRN for N/V - follow for improvement GERD - uncontrolled, with daily symptoms --> re-started PPI with Protonix 40 mg PO daily as above Electrolyte Abnormalities - Na 132 and K 5.4 - suspect 2/2 CKD vs hypovolemic hyponatremia - held nephrotoxic meds and started fluids as above - trend BMP as above Paroxysmal Atrial Fibrillation - currently sinus rhythm - no anti-coagulation via Warfarin or DOAC as patient frequently has severe falls - patient does not take Toprol although listed in our med list; takes Propranolol 80mg PO BID for "a while" and takes Amiodarone - continue home Propranolol and Amiodarone Chronic Systolic CHF - last TTE on 05/16/2020 showed EF 45-50% and decreased systolic function - not hypervolemic on exam - held Lisinopril and Lasix as above - continue home Imdur 120 mg - cautious use of IVFs - currently at 80cc/hr - monitor volume status clinically - strict I/Os, daily weights, sodium-restricted diet CAD - NSTEMI and stents placed in 2009 - continue home Plavix 75 mg PO daily T2DM - A1c 5.5 on 07/16 - basal insulin + SSI while hospitalized Anxiety - continue home Buspar and Ativan Interstitial Lung Disease - no current cough or wheezing - PRN duo nebs ordered Seizure Disorder - continue Carbamazepine 200mg PO daily Hypothyroidism - TSH 10.9 (was 5.18 on 07/15), Free T4 1.04 - continue Synthroid 100 mcg daily - recommend f/u TSH/free T4 as outpatient Normocytic Anemia - no signs of active bleeding, coags WNL, suspect anemia of chronic disease - trend CBC daily HLD - continue Rosuvastatin 5 mg PO QHS FEN/GI: DM2/heart-healthy/sodium-restricted, NSS @ 80cc/hr DVT Prophylaxis: Plavix 75 mg PO daily Code Status: DNR/DNI Disposition: med/surg with tele (2) Acute on chronic renal failure: (3) Vomiting: (4) Atrial fibrillation: (5) Anemia of chronic disease: (6) Acute hyponatremia: (7) Acute hyperkalemia: (8) Chronic diastolic heart failure: (9) History of recent fall: (10) Multiple sclerosis: (11) Hypertension: (12) Interstitial lung disease: (13) Seizure disorder: (14) Hypothyroidism: (15) Legally blind: (16) CAD (coronary artery disease): History of Present Illness Chief Complaint: [facility] Primary Care Provider: Chris Reis Luisana Muhammad is a 80 yo female with complex PMHx including recurrent falls, parkinsonism, MS, T2DM c/b retinopathy and blindness, ILD, chronic systolic CHF (last echo 05/2020 EF 45-50%), paroxysmal a-fib (rate-controlled) who presented to [facility] ED on 07/30/2020 for altered mental status - she is accompanied by her . Patient was recently discharged from [facility] on 07/20 - was here for acute on chronic systolic CHF. Went to [facility] acute rehab for 5 days and then returned home. Patient's reports that she fell once several days ago at home but denies associated head trauma or LOC. Of note, the patient However patient's reports that she "passed out" two times in the last several days. During both occasions they were sitting on the couch when the noticed that the patient was sleeping and not easily arousable. During the first event, the patient woke up after several minutes and was at previous baseline; however earlier today the patient was not arousable and the called EMS - patient was taken to the ambulance and was given Narcan which reportedly led to rapid improvement in mental status. Patient woke up and reported being cold. Patient denies fever/chills, chest pain/palpitations, SOB, cough, nausea, abdominal pain. Of note, patient has had chronic NBNB vomiting, usually once per day, for several weeks - was previously on Omeprazole 40 mg PO daily but stopped taking this medication recently. In the ED, the patient had BSG of 87 and was hy potensive - BP improved with NSS 500cc bolus x2. Allergies Allergy/AdvReac Type Severity Reaction Status Date / Time allopurinol Allergy Unknown COUGH Verified 07/15/20 22:15 blue dye Allergy Unknown BRILLIANT Verified 07/15/20 22:15 BLUE FCF dimethyl fumarate Allergy Unknown UNKNOWN Verified 07/15/20 22:15 Home Medications Medication Instructions Recorded Confirmed Type aspirin 81 mg tablet,delayed 81 mg PO DAILY tab 05/25/19 07/30/20 History release biotin 5 mg tablet 5 tab PO DAILY tab 05/25/19 07/30/20 History buspirone 10 mg tablet 10 mg PO BID PRN 09/03/19 07/30/20 History levothyroxine 100 mcg tablet 100 mcg PO DAILY 09/03/19 07/30/20 History lorazepam 0.5 mg tablet 0.5 mg PO QPM PRN 09/03/19 07/30/20 History nitroglycerin 0.4 mg sublingual 0.4 mg SL Q5M PRN 09/03/19 07/30/20 History tablet acetaminophen [Tylenol] 650 mg PO Q6 PRN 09/19/19 07/30/20 History ergocalciferol (vitamin D2) 1,250 mcg PO WK 09/19/19 07/30/20 History [Vitamin D2] folic acid 0.4 mg PO DAILY 09/19/19 07/30/20 History senna 8.6 mg PO BID PRN 09/19/19 07/30/20 History isosorbide mononitrate 120 mg PO DAILY 05/13/20 07/30/20 History rosuvastatin 5 mg PO HS 05/13/20 07/30/20 History clopidogrel 75 mg PO QAM #30 tab 05/29/20 07/30/20 Rx amiodarone 100 mg PO DAILY 06/12/20 07/30/20 History diclofenac sodium 2 g TOPICAL QID PRN 06/12/20 07/30/20 History metoprolol succinate 25 mg PO QAM #1 tab 06/19/20 07/30/20 Rx albuterol sulfate 2.5 mg INHALATION Q4H PRN 07/15/20 07/30/20 History amlodipine [Norvasc] 10 mg PO DAILY 07/15/20 07/30/20 History carbamazepine [Tegretol] 200 mg PO DAILY 07/15/20 07/30/20 History docusate sodium 100 mg PO TID 07/15/20 07/30/20 History fentanyl [Duragesic] 25 mcg TOPICAL [id number] 07/15/20 07/30/20 History lisinopril 5 mg PO DAILY 07/15/20 07/30/20 History omeprazole 40 mg PO DAILY 07/15/20 07/30/20 History vitamin E 1,000 tab PO DAILY 07/15/20 07/30/20 History furosemide 40 mg PO QAM #30 tab 07/20/20 07/30/20 Rx insulin glargine [Lantus Solostar 16 unit SC BID 07/30/20 07/30/20 History U-100 Insulin] promethazine 12.5 mg PO Q6H PRN 07/30/20 07/30/20 History propranolol 80 mg PO BID 07/30/20 07/30/20 History Past Med/Surg History Medical History Acute systolic CHF (congestive heart failure) MARY (acute kidney injury) Anemia of chronic disease Atrial fibrillation Bradycardia CAD (coronary artery disease) July 2009 -NSTEMI 2009-2 KYLER to circumflex obtuse marginal, 1 KYLER to RCA Carotid artery stenosis CKD (chronic kidney disease), stage III DM type 2 (diabetes mellitus, type 2) Dyslipidemia History of DVT (deep vein thrombosis) Hypertension Hypothyroidism Interstitial lung disease Legally blind Multiple sclerosis Obesity (BMI 30-39.9) Seizure disorder Shortness of breath Surgical History History of hysterectomy History of tonsillectomy Hx of cholecystectomy Family History Mother Heart disease Social History Smoking Status: Unknown if ever smoked Hx Alcohol Use: No Hx Substance Use: No Preferred Language: Armenian Communication Ability: Impaired [employer] Required: No Beliefs That Will Affect Care: None marital status: Current Living Situation: Spouse and Family How many Children do You have: 4 Feels Safe at Home: Yes Assistive Devices: Denture - Upper, Denture - Lower, Hearing Aid - Bilateral, Oxygen - Continuous and Walker Review of Systems Constitutional: no fever and no chills Eyes: blind Respiratory: no cough and no dyspnea Cardiovascular: + syncope; no chest pain, no orthopnea, no palpitations and no edema Gastrointestinal: + vomiting; no abdominal pain, no nausea and no diarrhea/loose stools Genitourinary: no dysuria, no urinary frequency and no flank pain Musculoskeletal: + back pain (chronic) Hematologic / Lymphatic: + easy bruising; no easy bleeding Physical Exam Constitutional: + obese; no acute distress Eyes: PERRL, conjunctivae normal, anicteric sclerae Respiratory: normal respiratory effort, lungs clear to auscultation Cardiovascular: Rate/Rhythm: regular rhythm and + bradycardic Heart Sounds: normal S1 and normal S2; no murmur Vessels: no JVD Extremities: no edema Gastrointestinal (Abdomen): normal bowel sounds, soft, nontender, no hepatosplenomegaly Skin: several hematomas on right abdomen - mildly TTP Neurologic: lip-smacking and bilateral resting hand tremors Psychiatric: A+Ox3, euthymic affect Results & Data Results & Data ([facility]) Vital Signs (Past 12 Hours) Vital Signs Temp Pulse Resp BP Pulse Ox 07/30/20 19:03 64 19 125/76 95 07/30/20 18:08 54 L 19 118/52 L 96 07/30/20 17:12 53 L 24 118/52 L 99 07/30/20 16:50 55 L 20 95 07/30/20 16:40 53 L 22 97 07/30/20 15:46 53 L 23 109/49 L 97 07/30/20 15:41 100 07/30/20 15:31 36.7 C 53 L 24 68/54 L 100 Code Status & VTE Plan Code Status DNR/DNI VTE Prophylaxis Plan VTE Prophylaxis will be ordered: Yes Supervising Physician Co-Signing Physician Notes Patient seen and examined, chart reviewed, case discussed with Dr. Smith and I agree with his assessment and plan as documented above. Briefly, patient is a 71yo female with multiple medical problems, recent hospital admission for nausea, vomiting and po intolerance. Patient was discharged to rehab in stable condition - was to have outpatinet monitoring of renal function Returns today with weakness, fatigue and episodes of somnolence and altered mental status. Clinical condition improved after administration of Narcan in the field. Hypotensive on arrival now improved. On exam she is afebrile, HD stable, NAD Skin - no rash HEENT - NC/AT, PERRL, EOMI, Neck supple Heart -+S1/S2 Lungs - CTA Abd - +BS, soft, NT/ND Ext - no edema Labs and images reviewed, Stable macrocytic anemia - had normal B12 and Folate levels in the past, Elevated BUN and Cr Rapid antigen testing in ER for Covid-19 NEGATIVE Assessment/Plan - ?volume contraction, medication effects, poor PO intake - elevated BUN and Cr ?medication effects from Fentanyl - will attempt to reduce patch Gentle IVF, monitor electrolytes and renal function Remainder of plan as above Resident Activity Tracking Resident Involvement: Resident Care Provided Care Provided: Adult Hospital Medicine (1) CAD (coronary artery disease) Associated angina: with unspecified angina Coronary Disease-Associated Artery/Lesion type: [place] artery [place] vs. transplanted heart: [place] heart Qualified Code(s): I25.119 - Atherosclerotic heart disease of [place] coronary artery with unspecified angina pectoris (2) Hypothyroidism Hypothyroidism type: acquired Qualified Code(s): E03.9 - Hypothyroidism, unspecified (3) Hypertension Hypertension type: essential hypertension Qualified Code(s): I10 - Essential (primary) hypertension (4) Vomiting Nausea presence: with nausea Vomiting Intractability: non-intractable Vomiting type: unspecified Qualified Code(s): R11.2 - Nausea with vomiting, unspecified
[2020-07-30] MEDS ORDERED: PROMETHAZINE HCL 25 MG TAB PO PRN (19:40)
[2020-07-30 19:47] LABS: Partial Thromboplastin Ratio 0.8; Partial Thromboplastin Time 22.9 Seconds (21.0-31.0); Prothrombin Time 10.6 Seconds (9.0-12.0)
--- NOTE | 2020-07-30 21:00 | Billing Data ---
Date of Service July 30, 2020 Coding Level of Care Code 54072 Initial Inpt Care Lvl 3
[2020-07-30] MEDS ORDERED: GLUCOSE 40% GEL 15 GM TUBE PO PRN (21:29)
[2020-07-30] MEDS ORDERED: DICLOFENAC SOD 1% GEL 100 GM TUBE EXT PRN (21:29)
[2020-07-30] MEDS ORDERED: GLUCOSE 10 TABS/TUBE PO PRN (21:29)
[2020-07-30] MEDS ORDERED: busPIRone 5 MG TAB PO PRN (21:29)
[2020-07-30] MEDS ORDERED: DEXTROSE 50% 50 ML SYRINGE IV PRN (21:29)
[2020-07-30] MEDS ORDERED: NITROGLYCERIN SL 0.4 MG/TAB TAB SL PRN (21:29)
[2020-07-30] MEDS ORDERED: GLUCAGON FOR INJ 1 MG VIAL SQ PRN (21:29)
[2020-07-30] MEDS ORDERED: ALBUTEROL 0.083% NEBU SOLN 3 ML VIAL INH PRN (21:29)
[2020-07-30] MEDS ORDERED: CARBOHYDRATES FOR HYPOGLYCEMIA PO PRN (21:29)
[2020-07-30] MEDS ORDERED: PHARMACY GLYCEMIC MGMT CONSULT PRN (21:48)
[2020-07-30] MEDS ORDERED: SENNA 8.6 MG TAB PO PRN (21:48)
[2020-07-30] MEDS ORDERED: fentaNYL 12 MCG/HR TDSY TD SCH (22:00)
--- NOTE | 2020-07-30 22:11 | Electrocardiogram Report ---
Test Reason : Blood Pressure : / mmHG Vent. Rate : 054 BPM Atrial Rate : 054 BPM P-R Int : 282 ms QRS Dur : 112 ms QT Int : 484 ms P-R-T Axes : 087 000 033 degrees QTc Int : 458 ms Sinus bradycardia with 1st degree A-V block Otherwise normal ECG When compared with ECG of 15-JUL-2020 18:20, No significant change was found Confirmed by Dennis Olivas ([id number]) on 07/30/2020 10:10:51 PM Referred By: ED Confirmed By:Dennis Olivas
[2020-07-30] MEDS: INSULIN ASPART 100 UNITS/ML 3 ML PEN SC SCH (22:41)
[2020-07-30] MEDS: ROSUVASTATIN CALCIUM 5 MG TAB PO SCH (22:42)
[2020-07-30] MEDS ORDERED: INSULIN GLARGINE SOLOSTAR 100 UNITS/ML 3 ML PEN SC ONE (22:45)
[2020-07-31] MEDS: PROPRANOLOL HCL 80 MG TAB PO SCH ×3 (00:50→20:35)
[2020-07-31] MEDS: CHECK fentaNYL PATCH PLACEMENT SCH ×2 (00:51→08:45)
[2020-07-31] MEDS: LORazepam 0.5 MG TAB PO PRN (02:13)
[2020-07-31] MEDS: SODIUM CHLORIDE 0.9% 1000ML 1,000 ML IV SCH (04:40)
[2020-07-31 04:44] LABS: Basophils # (auto) 0.01 K/uL (0-0.2); Basophils % (auto) 0.1 %; Eosinophils # (auto) 0.11 K/uL (0-0.5); Eosinophils % (auto) 1.5 %; Hematocrit (blood only) 22.1 % (37-47); Hemoglobin 7.1 g/dL (12.0-16.0); Immature Granulocytes # (auto) 0.02 K/uL (0.00-0.02); Immature Granulocytes % (auto) 0.3 %; Lymphocytes # (auto) 0.81 K/uL (1.2-3.4); Lymphocytes % (auto) 11.3 %; Mean Corpuscular Hemoglobin 31.8 pg (25-34); Mean Corpuscular Hgb Conc 32.1 g/dL (32-36); Mean Corpuscular Volume 99.1 fL (80-100); Mean Platelet Volume 10.3 fL (7.4-10.4); Monocytes # (auto) 0.89 K/uL (0.11-0.59); Monocytes % (auto) 12.4 %; Neutrophils # (auto) 5.31 K/uL (1.4-6.5); Neutrophils % (auto) 74.4 %; Platelet Count 217 K/uL (130-400); RDW Coefficient of Variation 14.2 % (11.5-14.5); RDW Standard Deviation 51.2 fL (36.4-46.3); Red Blood Count 2.23 M/uL (4.2-5.4); White Blood Count 7.15 K/uL (4.8-10.8)
[2020-07-31 05:01] LABS: Partial Thromboplastin Ratio 0.8; Partial Thromboplastin Time 22.5 Seconds (21.0-31.0); Prothrombin Time 10.4 Seconds (9.0-12.0)
[2020-07-31 05:06] LABS: RBC Morphology Unremarkable
[2020-07-31 05:09] LABS: BUN Creatinine Ratio 14.7 (10-20); Calcium 8.5 mg/dl (8.5-10.1); Est GFR (African American) 14.4; Est GFR (Non-African American) 12.4; Magnesium 2.1 mg/dl (1.8-2.4); Phosphorus 3.8 mg/dl (2.5-4.9); Potassium 5.1 mmol/L (3.5-5.1)
[2020-07-31] MEDS: LEVOTHYROXINE SODIUM 100 MCG TABLET PO SCH (06:27)
[2020-07-31] MEDS: INSULIN ASPART 100 UNITS/ML 3 ML PEN SC SCH ×4 (08:44→20:37)
[2020-07-31] MEDS: FOLIC ACID 400 MCG TAB PO SCH (08:55)
[2020-07-31] MEDS: AMIODARONE 200 MG TAB PO SCH (08:56)
[2020-07-31] MEDS: carBAMazepine 200 MG TABLET PO SCH (08:57)
[2020-07-31] MEDS: PANTOprazole 40 MG TAB PO SCH (08:57)
[2020-07-31] MEDS: ISOSORBIDE MONO EXTENDED REL 60 MG TABCR PO SCH (08:57)
[2020-07-31] MEDS: CLOPIDOGREL BISULFATE 75 MG TAB PO SCH (08:57)
[2020-07-31] MEDS: FERROUS SULFATE 325 MG TAB PO SCH (10:17)
--- NOTE | 2020-07-31 10:17 | Hospitalist Progress Note ---
Date of Service July 31, 2020 Assessment & Plan (1) Altered mental status: Luisana Muhammad is a 80 yo female with complex PMHx who was recently admitted 07/15/20 -07/20/20 for progressive weakness and multiple falls - she was discharged to [facility] for rehab (was only there for 5 days). She was readmitted 07/30/2020 for altered mental status. AMS - improving - per EMS, patient had Fentanyl patch in place (uses this chronically) and had pinpoint pupils on initial assessment - arousable and quick improvement in mental status after administration of Narcan x1 - suspect AMS 2/2 narcotic overdose as Fentanyl patch has 75% urinary excretion and patient has MARY on CKD (see below) - Decreased home Fentanyl patch to 12.5mcg - Head CT negative on admission - afebrile, WBC normal, no evidence of infection - Electrolytes normal, but Cr elevated - LFTs normal, ammonia not elevated, hepatic etiology unlikely MARY on CKD - baseline Cr 1.3-1.5 - Cr 3.5 on admission, down to 3.35 today - BUN/Cr ratio at 14 - on home lasix and reports daily vomiting as will be described below - suspect pre-renal injury 2/2 dehydration - patient was given bolus in the ED, now on gentle fluids with IV saline 80mls/hr - held nephrotoxic home meds - Lisinopril and Lasix - trend BMP daily Vomiting - history reveals non-bloody, non-bilious vomiting once daily for several weeks, was on chronic PPI for years but stopped taking this recently - likely contributing to MARY (volume loss) - started Protonix 40 mg PO daily - conitnue IV normal saline - continue home Promethazine 12.5 mg PO Q6H PRN GERD - uncontrolled, with daily symptoms --> re-started PPI with Protonix 40 mg PO daily as above Electrolyte Abnormalities - resolving - Na 132 on admission, up to 134 today - K 5.4 on admission, down to 5.1 today - suspect 2/2 CKD vs hypovolemic hyponatremia - held nephrotoxic meds and started fluids as above - trend BMP as above Paroxysmal Atrial Fibrillation - currently sinus rhythm - no anti-coagulation via Warfarin or DOAC as patient frequently has severe falls - continue home Propranolol for rate control (AM dose held due to HR of 54) - continue home amiodarone for rate/rhythm control Chronic Systolic CHF - last TTE on 05/16/2020 showed EF 45-50% and decreased systolic function - not hypervolemic on exam - continue to hold Lisinopril and Lasix in setting of MARY - continue home Imdur 120 mg - cautious use of IVFs - currently at 80cc/hr - monitor volume status clinically - strict I/Os, daily weights, sodium-restricted diet CAD - NSTEMI and stents placed in 2009 - continue home Plavix 75 mg PO daily and rosuvastatin T2DM - A1c 5.5 on 07/16; at goal - basal insulin + SSI while hospitalized - recommend against adding pharmacotherapy at this time Anxiety - continue home Buspar and Ativan Interstitial Lung Disease - no current cough or wheezing - PRN duo nebs ordered Seizure Disorder - continue Carbamazepine 200mg PO daily Hypothyroidism - TSH 10.9 (was 5.18 on 07/15), Free T4 1.04 - continue Synthroid 100 mcg daily - recommend f/u TSH/free T4 as outpatient Normocytic Anemia - Hgb at 7.1 today, down from 8.1 on admission - MCV 99 - chart review shows normal B12 and folate levels in 05/2020. Normal ferritin, but low iron level 05/2020. - coags WNL - ordered ferrous sulfate supplement - nursing reported red stool this am, guiac ordered - blood consent obtained; transfuse if < 7 - trend CBC daily HLD - continue Rosuvastatin 5 mg PO QHS Parkinsons Disease - tremor on exam - patient does not appear to be on any home medications FEN/GI: DM2/heart-healthy/sodium-restricted, NSS @ 80cc/hr DVT Prophylaxis: Plavix 75 mg PO daily Code Status: DNR/DNI Disposition: med/surg with tele (2) Acute on chronic renal failure: (3) Vomiting: (4) Atrial fibrillation: (5) Anemia of chronic disease: (6) Acute hyponatremia: (7) Acute hyperkalemia: (8) Chronic diastolic heart failure: (9) History of recent fall: (10) Multiple sclerosis: (11) Hypertension: (12) Interstitial lung disease: (13) Seizure disorder: (14) Hypothyroidism: (15) Legally blind: (16) CAD (coronary artery disease): Admission and Anticipated Discharge Date Admission Date: July 30, 2020 Supervising Physician Co-Signing Physician Notes Resident Physician Supervision Note: I was present with Dr. Kayla Goss during the history and exam. I discussed the case with the resident and agree with the findings and plan as documented in the note. Any exceptions or clarifications are listed here: None Pt was intermittently confused during visit, initially laying across, but did ambulate to bathroom with 2 person assist, no focal complaints vitals reviewed exam is not revealing maybe mary from atn due to diuretics and star, complicated by transderm fentanyl reduced clearance by renal disease causing toxic encephalopathy, the toxic encephalopathy has resolved and are completing workup for other causes of metabolic encephalopathy Documented By: Kaden Chavez MD Subjective Patient adamantly requests to go home today - she wants to be home with her grandkids on . She does not want to be sent back to rehab. She continues to say "i am not that sick." Review of Systems Eyes: blind Physical Exam Constitutional: WD/WN, vitals as above cooperative Eyes: + anicteric sclerae ENMT: external ear and nose normal, oropharynx normal Neck: normal visual inspection and trachea midline Respiratory: normal respiratory effort, lungs clear to auscultation Cardiovascular: Rate/Rhythm: regular rhythm and + bradycardic Heart Sounds: normal S1 and normal S2 Gastrointestinal (Abdomen): Inspection/Auscultation: normal bowel sounds Skin: no rashes, warm and dry Neurologic: Motor/Sensory: + tremor (tongue, face) Psychiatric: Orientation: alert, oriented to person and oriented to place; + not oriented to time (knew the year, when asked what holiday it was, she replied "new years" ) Results & Data Results & Data ([facility]) Vital Signs (Past 12 Hours) Vital Signs Temp Pulse Pulse Resp BP Pulse Ox 07/31/20 07:41 54 L 07/31/20 07:00 37.0 C 56 L 20 116/60 96 07/31/20 04:00 37.1 C 89 20 112/70 93 07/31/20 03:32 55 L Resident Activity Tracking Resident Involvement: Resident Care Provided Care Provided: Adult Hospital Medicine (1) CAD (coronary artery disease) Associated angina: with unspecified angina Coronary Disease-Associated Artery/Lesion type: [place] artery [place] vs. transplanted heart: [place] heart Qualified Code(s): I25.119 - Atherosclerotic heart disease of [place] coronary artery with unspecified angina pectoris (2) Hypothyroidism Hypothyroidism type: acquired Qualified Code(s): E03.9 - Hypothyroidism, unspecified (3) Hypertension Hypertension type: essential hypertension Qualified Code(s): I10 - Essential (primary) hypertension (4) Vomiting Nausea presence: with nausea Vomiting Intractability: non-intractable Vomiting type: unspecified Qualified Code(s): R11.2 - Nausea with vomiting, unspecified
--- NOTE | 2020-07-31 11:50 | Pharmacy Report ---
Pharmacy Glycemic Short Note 2 - Date of Service July 31, 2020 - Glycemic Short BSG Results (Last 24 hours): 07/30/20 07/30/20 07/31/20 16:45 22:13 04:22 Glucose 127 H 60 L POC Glucose 120 H 07/31/20 07:35 Glucose POC Glucose 73 OUTPATIENT ANTIDIABETIC REGIMEN: * Lantus 16 units SQ BID * A1c = 5.5% on 07/16/20 ASSESSMENT: * 80yo T2DM female with adequate outpatient control per A1c. Outpatient control may be too tight for patient based on age/co-morbidities. * Scr significantly elevated from baseline - ARF can result in increased insulin sensitivity due to pharmacodynamic changes with insulin response. * Pt was given a reduced outpatient dose of Lantus last evening - 10 units instead of 16 units. AM fasting BSG LOW this AM at 60mg/dl. Will hold off on further basal insulin. Basal insulin may not even be needed based on A1c. * Will continue bolus insulin monotherapy and titrate based on BSG trends. PLAN FOR INPATIENT GLYCEMIC CONTROL: * Basal insulin * DC Lantus * Bolus insulin * NovoLog per scale ACHS or Q6hrs while NPO * Goal Range: Low 110 mg/dL - High 140 mg/dL * Correction Factor: 25 mg/dL/unit * Nutritional / Prandial insulin per carb ratio of 1 unit per 10 grams CHO consumed PLAN FOR DISCHARGE: * May consider dose reduction of Lantus to prevent outpatient hypoglycemia.
--- NOTE | 2020-07-31 13:50 | Billing Data ---
Date of Service July 31, 2020 Coding Level of Care Code 42100 Subseq Hosp Care Lvl 3
[2020-07-31] MEDS ORDERED: MELATONIN 3 MG TAB PO PRN (14:56)
[2020-07-31] MEDS ORDERED: SODIUM CHLORIDE 0.9% 250 ML IV PRN ×2 (15:03→16:08)
[2020-07-31] MEDS: SODIUM CHLORIDE 0.9% 500 ML IV SCH (15:37)
[2020-07-31] MEDS: ROSUVASTATIN CALCIUM 5 MG TAB PO SCH (20:36)
[2020-08-01] MEDS: SODIUM CHLORIDE 0.9% 1000ML 1,000 ML IV SCH ×2 (00:06→13:24)
[2020-08-01] MEDS: LEVOTHYROXINE SODIUM 100 MCG TABLET PO SCH (06:13)
[2020-08-01] MEDS: LORazepam 0.5 MG TAB PO PRN ×2 (06:13→20:17)
[2020-08-01] MEDS: INSULIN ASPART 100 UNITS/ML 3 ML PEN SC SCH ×4 (09:18→20:19)
[2020-08-01] MEDS: CLOPIDOGREL BISULFATE 75 MG TAB PO SCH (09:23)
[2020-08-01] MEDS: AMIODARONE 200 MG TAB PO SCH (09:23)
[2020-08-01] MEDS: carBAMazepine 200 MG TABLET PO SCH (09:23)
[2020-08-01] MEDS: FERROUS SULFATE 325 MG TAB PO SCH (09:23)
[2020-08-01] MEDS: FOLIC ACID 400 MCG TAB PO SCH (09:23)
[2020-08-01] MEDS: ISOSORBIDE MONO EXTENDED REL 60 MG TABCR PO SCH (09:23)
[2020-08-01] MEDS: PROPRANOLOL HCL 80 MG TAB PO SCH ×2 (09:23→20:17)
[2020-08-01] MEDS: PANTOprazole 40 MG TAB PO SCH (09:23)
[2020-08-01 09:59] LABS: Basophils # (auto) 0.01 K/uL (0-0.2); Basophils % (auto) 0.1 %; Eosinophils # (auto) 0.11 K/uL (0-0.5); Eosinophils % (auto) 1.4 %; Hematocrit (blood only) 29.8 % (37-47); Hemoglobin 9.8 g/dL (12.0-16.0); Immature Granulocytes # (auto) 0.02 K/uL (0.00-0.02); Immature Granulocytes % (auto) 0.2 %; Lymphocytes # (auto) 0.63 K/uL (1.2-3.4); Lymphocytes % (auto) 7.8 %; Mean Corpuscular Hemoglobin 31.7 pg (25-34); Mean Corpuscular Hgb Conc 32.9 g/dL (32-36); Mean Corpuscular Volume 96.4 fL (80-100); Mean Platelet Volume 10.4 fL (7.4-10.4); Monocytes # (auto) 0.65 K/uL (0.11-0.59); Monocytes % (auto) 8.1 %; Neutrophils # (auto) 6.61 K/uL (1.4-6.5); Neutrophils % (auto) 82.4 %; Platelet Count 196 K/uL (130-400); RDW Coefficient of Variation 15.2 % (11.5-14.5); RDW Standard Deviation 53.5 fL (36.4-46.3); Red Blood Count 3.09 M/uL (4.2-5.4); White Blood Count 8.03 K/uL (4.8-10.8)
[2020-08-01 10:25] LABS: BUN Creatinine Ratio 16.9 (10-20); Calcium 8.9 mg/dl (8.5-10.1); Creatinine Clr Calc Pharmacy 19.7 ml/min; Est GFR (African American) 23.4; Est GFR (Non-African American) 20.2; Potassium 5.2 mmol/L (3.5-5.1)
--- NOTE | 2020-08-01 10:46 | Hospitalist Progress Note ---
Date of Service August 01, 2020 Assessment & Plan (1) Altered mental status: Luisana Muhammad is a 80 yo female with complex PMHx who was recently admitted 07/15/20 -07/20/20 for progressive weakness and multiple falls - she was discharged to [facility] for rehab (was only there for 5 days). She was readmitted 07/30/2020 for altered mental status - etiology thought to be from narcotic overuse (fentanyl patch in the setting of MARY; impaired renal clearance causing relative increase in fentanyl level). Patch now removed with report of increased leg pain. Hemoglobin appropriately increased with 2 units of pRBC transfusion. Her cognition level is unclear - she is alert and oriented x 2 and answers some questions appropriately and some inappropriately. There is question if she is truly able to comprehend cause and effect, and thus of competence. This will likely become pertinent when she is medically stable for placement (rehab). AMS - improving - per EMS, patient had Fentanyl patch in place (uses this chronically) and had pinpoint pupils on initial assessment - arousable and quick improvement in mental status after administration of Narcan x1 - suspect AMS 2/2 narcotic overdose as Fentanyl patch has 75% urinary excretion and patient has MARY on CKD (see below) - Fentanyl patch discontinued. - Head CT negative on admission - afebrile, WBC normal, no evidence of infection - Electrolytes normal, but Cr elevated - LFTs normal, ammonia not elevated, hepatic etiology unlikely - patient continues to oriented x 2 (two days in a row she reported it was "new years," rather than Thanksgiving. This is concerning for possible underlying dementia/cognitive degeneration. MOCHA was conducted in an effort to get a baseline, but tested was limited give her sensory impairment (legally blind). MARY on CKD - baseline Cr 1.3-1.5 - Cr 3.5 on admission, down to 2.24 today - on home lasix and reports daily vomiting as will be described below - suspect pre-renal injury 2/2 dehydration - patient was given bolus in the ED, now on gentle fluids with IV saline 80mls/hr - held nephrotoxic home meds - Lisinopril and Lasix (but will restart Lasix if volume status changes) - trend BMP daily Vomiting - history reveals non-bloody, non-bilious vomiting once daily for several weeks, was on chronic PPI for years but stopped taking this recently - likely contributing to MARY (volume loss) - started Protonix 40 mg PO daily - continue IV normal saline - continue home Promethazine 12.5 mg PO Q6H PRN GERD - uncontrolled, with daily symptoms --> re-started PPI with Protonix 40 mg PO da dick as above Electrolyte Abnormalities - resolving - Na 132 on admission, up to 134 today - K 5.4 on admission, down to 5.2 today - suspect 2/2 CKD vs hypovolemic hyponatremia - held nephrotoxic meds and started fluids as above - trend BMP as above Paroxysmal Atrial Fibrillation - currently sinus rhythm - no anti-coagulation via Warfarin or DOAC as patient frequently has severe falls - continue home Propranolol for rate control - continue home amiodarone for rate/rhythm control Chronic Systolic CHF - last TTE on 05/16/2020 showed EF 45-50% and decreased systolic function - not hypervolemic on exam - continue to hold Lisinopril and Lasix in setting of MARY - continue home Imdur 120 mg - cautious use of IVFs - currently at 80cc/hr - monitor volume status clinically - strict I/Os, daily weights, sodium-restricted diet CAD - NSTEMI and stents placed in 2009 - continue home Plavix 75 mg PO daily and rosuvastatin T2DM - A1c 5.5 on 07/16; at goal - basal insulin + SSI while hospitalized - recommend against adding pharmacotherapy at this time Anxiety - continue home Buspar and Ativan Interstitial Lung Disease - no current cough or wheezing - PRN duo nebs ordered Seizure Disorder - continue Carbamazepine 200mg PO daily Hypothyroidism - TSH 10.9 (was 5.18 on 07/15), Free T4 1.04 - continue Synthroid 100 mcg daily - recommend f/u TSH/free T4 as outpatient Normocytic Anemia - Hgb up to 9.8 today from 6.5 yesterday; s/p transfusion of 2 units - chart review shows normal B12 and folate levels in 05/2020. Normal ferritin, but low iron level 05/2020. - coags WNL - guiac stool positive - continue ferrous sulfate supplement - blood consent signed and in chart; transfuse if < 7 - trend CBC HLD - continue Rosuvastatin 5 mg PO QHS Parkinsons Disease - tremor on exam - patient does not appear to be on any home medications FEN/GI: DM2/heart-healthy/sodium-restricted, NSS @ 80cc/hr DVT Prophylaxis: Plavix 75 mg PO daily Code Status: DNR/DNI Disposition: med/surg with tele. PT/OT ordered (2) Acute on chronic renal failure: (3) Vomiting: (4) Atrial fibrillation: (5) Anemia of chronic disease: (6) Acute hyponatremia: (7) Acute hyperkalemia: (8) Chronic diastolic heart failure: (9) History of recent fall: (10) Multiple sclerosis: (11) Hypertension: (12) Interstitial lung disease: (13) Seizure disorder: (14) Hypothyroidism: (15) Legally blind: (16) CAD (coronary artery disease): Admission and Anticipated Discharge Date Admission Date: July 30, 2020 Supervising Physician Co-Signing Physician Notes I personally examined the patient and verified all wright points of history and exam, discussed case, and agree with decision making with Dr Goss. feeling ok. breathing more or less OK although vaguely references maybe a degree of orthopnea. no new/worse/different leg pain than is her normal. no new complaints otherwise. does ask to go home, although not quite as forcefully as when we last talked last admission. when asked what she's been doing /how long it took her to get home after i last saw her, she notes she's been spending time with her 6 great grandkids, and that it took her "about 26 minutes" to get home (although i was trying to ask about her rehab stay). dr goss to call vitals noted nad heent nc at mmm breathing unlabored no accessory muscles good effort skin no rashes no pallor or icterus neuro visually impaired no acute focal neuro deficits AMS - ARF + fentanyl patch. improving ARF - ?most likely meds/volume of intake related leading to prerenal situation. improving. have to follow closely since she is fairly brittle w CHF as well - would hold fluids for now and follow w correction by med changes and PO fluids alone leg pain - still had 12.5mcg patch on when i saw her - re-ordered to dc - but no significant worsening noted in leg pain at least as of yet, no withdrawal sx noted as of yet either weakness - seems to lack insight into how weak she is - hard to tell how much is denial and strong desire to get home vs trying to gauge her capacity given a degree of erraticness and inconsistency in some of her answers and behaviors. due to vision, MOCA and MMSE are of limited utility. conversationally she is tough to read. will continue to follow closely. PT/OT eval and treat. otherwise as above Subjective no acute events overnight. eating well. ambulating to bathroom and back with assistance. Patient was transfused two units of blood last night. Patient continues to beg to be sent home - repeatedly calling her and asking him to come get her. Review of Systems Eyes: blind Physical Exam Constitutional: WD/WN, vitals as above cooperative Eyes: + anicteric sclerae ENMT: external ear and nose normal, oropharynx normal Neck: normal visual inspection and trachea midline Respiratory: normal respiratory effort, lungs clear to auscultation Cardiovascular: Rate/Rhythm: regular rhythm and + bradycardic Heart Sounds: normal S1 and normal S2 Gastrointestinal (Abdomen): Inspection/Auscultation: normal bowel sounds Skin: no rashes, warm and dry Neurologic: Motor/Sensory: + tremor (tongue, face) Psychiatric: Orientation: alert, oriented to person and oriented to place; + not oriented to time (knew the year, when asked what holiday it was, she replied "new years" ) Results & Data Results & Data ([facility]) Vital Signs (Past 12 Hours) Vital Signs Temp Pulse Pulse Resp BP BP Pulse Ox 08/01/20 07:32 36.7 C 60 18 168/74 H 98 08/01/20 03:04 36.9 C 58 L 16 163/74 H 95 08/01/20 00:04 36.8 C 59 L 18 162/65 H 97 07/31/20 23:13 53 L Resident Activity Tracking Resident Involvement: Resident Care Provided Care Provided: Adult Hospital Medicine (1) CAD (coronary artery disease) Associated angina: with unspecified angina Coronary Disease-Associated Artery/Lesion type: [place] artery [place] vs. transplanted heart: [place] heart Qualified Code(s): I25.119 - Atherosclerotic heart disease of [place] coronary artery with unspecified angina pectoris (2) Hypothyroidism Hypothyroidism type: acquired Qualified Code(s): E03.9 - Hypothyroidism, unspecified (3) Hypertension Hypertension type: essential hypertension Qualified Code(s): I10 - Essential (primary) hypertension (4) Vomiting Nausea presence: with nausea Vomiting Intractability: non-intractable Vomiting type: unspecified Qualified Code(s): R11.2 - Nausea with vomiting, unspecified
--- NOTE | 2020-08-01 14:21 | Pharmacy Report ---
Pharmacy Glycemic Sign Off Nt - Date of Service August 01, 2020 - Assessment & Plan ASSESSMENT: * Pharmacy was consulted by Dr Smith on 07/30/20 for glycemic control and to write orders per [facility] inpatient glycemic control protocol. * Major changes made by pharmacy to antidiabetic regimen include: * Holding outpatient basal insulin and utilizing bolus insulin monotherapy * Patient has been receiving/requiring 8 units of insulin per day for adequate glycemic control * BSGs ranging 73 - 164 mg/dl * Regimen has only required minor adjustments over the past 48hrs to achieve this level of control * Do not anticipate further changes in patient status that would quickly deter iorate glycemic control (i.e. patient to be NPO for upcoming procedure, steroids tapering, starting tube feedings, etc). * Please see recommendations for outpatient antidiabetic regimen below. PLAN FOR INPATIENT GLYCEMIC CONTROL: No changes needed to current regimen. * Continue to hold basal insulin * Continue NovoLog per scale ACHS/Q6hrs while NPO * Goal range = 120 - 160 mg/dl * CF = 25 mg/dl/unit * CR = 1 unit for ever 10 g CHO consumed * Pharmacy is signing off of glycemic consult and will no longer be making adjustments to inpatient regimen. Please feel free to re-consult if needed. Thank you. DISCHARGE RECOMMENDATIONS: * A1c 5.5 % on 07/16/20 * This is likely too tight of glycemic control for patient based on age and co- morbidities. Recommend decreasing outpatient insulin regimen to prevent hypoglycemia. Could consider just doing Lantus 16 units daily instead of BID.
--- NOTE | 2020-08-01 15:57 | Billing Data ---
Date of Service August 01, 2020 Coding Level of Care Code 61827 Subseq Hosp Care Lvl 3
[2020-08-01] MEDS: ROSUVASTATIN CALCIUM 5 MG TAB PO SCH (20:17)
--- NOTE | 2020-08-01 23:11 | Communication Note ---
Date of Service: August 01, 2020 acute fall reported as patient quickly got out of bed before staff could arrive to prevent. There was no acute injury sustained. Patient was witnessed by staff to slid onto butt out of bed and staff was able to assist back to bed. There was no head injury sustained or other acute symptoms. BP elevated acutely from anxiety related to fall. Patient with anxiety that fall on record would cause her to go to rehab, which she does not want. She requested nursing staff to not "tell on her." No further orders at this time. There was already a 1:1 PRN order available if staffing could permit a sitter to help prevent but there aren't any available aides as already with other patients. Discussed with nursing staff, will make sure bed alarm is on most sensitive setting so that if she lifts a leg it will go off. Resident Activity Tracking Resident Involvement: Resident Care Provided Care Provided: Adult Hospital Medicine
[2020-08-02] MEDS ORDERED: SODIUM CHLORIDE 0.65% NA SOLN 45 ML (OCEAN) PRN (03:24)
[2020-08-02] MEDS ORDERED: SODIUM CHLORIDE 0.65% NA SOLN 45 ML (OCEAN) ONE (03:30)
[2020-08-02] MEDS: LEVOTHYROXINE SODIUM 100 MCG TABLET PO SCH (06:03)
[2020-08-02] MEDS: AMIODARONE 200 MG TAB PO SCH (08:11)
[2020-08-02] MEDS: ISOSORBIDE MONO EXTENDED REL 60 MG TABCR PO SCH (08:12)
[2020-08-02] MEDS: carBAMazepine 200 MG TABLET PO SCH (08:12)
[2020-08-02] MEDS: CLOPIDOGREL BISULFATE 75 MG TAB PO SCH (08:13)
[2020-08-02] MEDS: FOLIC ACID 400 MCG TAB PO SCH (08:13)
[2020-08-02] MEDS: FERROUS SULFATE 325 MG TAB PO SCH (08:13)
[2020-08-02] MEDS: PANTOprazole 40 MG TAB PO SCH (08:13)
[2020-08-02] MEDS: PROPRANOLOL HCL 80 MG TAB PO SCH (08:13)
[2020-08-02 08:28] LABS: Basophils # (auto) 0.01 K/uL (0-0.2); Basophils % (auto) 0.1 %; Eosinophils # (auto) 0.14 K/uL (0-0.5); Eosinophils % (auto) 1.9 %; Hematocrit (blood only) 30.9 % (37-47); Immature Granulocytes # (auto) 0.01 K/uL (0.00-0.02); Immature Granulocytes % (auto) 0.1 %; Lymphocytes # (auto) 0.89 K/uL (1.2-3.4); Mean Corpuscular Hemoglobin 31.8 pg (25-34); Mean Corpuscular Hgb Conc 32.4 g/dL (32-36); Mean Corpuscular Volume 98.4 fL (80-100); Mean Platelet Volume 10.8 fL (7.4-10.4); Monocytes # (auto) 0.44 K/uL (0.11-0.59); Monocytes % (auto) 5.9 %; Neutrophils # (auto) 5.95 K/uL (1.4-6.5); Platelet Count 223 K/uL (130-400); RDW Coefficient of Variation 14.7 % (11.5-14.5); RDW Standard Deviation 52.4 fL (36.4-46.3); Red Blood Count 3.14 M/uL (4.2-5.4); White Blood Count 7.44 K/uL (4.8-10.8)
[2020-08-02] MEDS: INSULIN ASPART 100 UNITS/ML 3 ML PEN SC SCH ×2 (08:31→12:05)
[2020-08-02 08:42] LABS: BUN Creatinine Ratio 15.7 (10-20); Calcium 9.7 mg/dl (8.5-10.1); Creatinine Clr Calc Pharmacy 26.3 ml/min; Est GFR (African American) 33.4; Est GFR (Non-African American) 28.8; Potassium 4.9 mmol/L (3.5-5.1)
--- NOTE | 2020-08-02 11:01 | Discharge Summary ---
Date of Service August 02, 2020 Admission HPI Per Admitting Provider Luisana Muhammad is a 80 yo female with complex PMHx including recurrent falls, parkinsonism, MS, T2DM c/b retinopathy and blindness, ILD, chronic systolic CHF (last echo 05/2020 EF 45-50%), paroxysmal a-fib (rate-controlled) who presented to [facility] ED on 07/30/2020 for altered mental status - she is accompanied by her . Patient was recently discharged from [facility] on 07/20 - was here for acute on chronic systolic CHF. Went to [facility] acute rehab for 5 days and then returned home. Patient's reports that she fell once several days ago at home but denies associated head trauma or LOC. Of note, the patient However patient's reports that she "passed out" two times in the last several days. During both occasions they were sitting on the couch when the noticed that the patient was sleeping and not easily arousable. During the first event, the patient woke up after several minutes and was at previous baseline; however earlier today the patient was not arousable and the called EMS - patient was taken to the ambulance and was given Narcan which reportedly led to rapid improvement in mental status. Patient woke up and reported being cold. Patient denies fever/chills, chest pain/palpitations, SOB, cough, nausea, abdominal pain. Of note, patient has had chronic NBNB vomiting, usually once per day, for several weeks - was previously on Omeprazole 40 mg PO daily but stopped taking this medication recently. In the ED, the patient had BSG of 87 and was hypotensive - BP improved with NSS 500cc bolus x2. Admission Exam Per Admitting Provider Constitutional: + obese; no acute distress Eyes: PERRL, conjunctivae normal, anicteric sclerae Respiratory: normal respiratory effort, lungs clear to auscultation Cardiovascular: Rate/Rhythm: regular rhythm and + bradycardic Heart Sounds: normal S1 and normal S2; no murmur Vessels: no JVD Extremities: no edema Gastrointestinal (Abdomen): normal bowel sounds, soft, nontender, no hepatosplenomegaly Skin: several hematomas on right abdomen - mildly TTP Neurologic: lip-smacking and bilateral resting hand tremors Psychiatric: A+Ox3, euthymic affect Principal Diagnosis AMS, ARF Discharge Exam Constitutional WD/WN, vitals as above + obese and cooperative; no acute distress Eyes PERRL, conjunctivae normal, anicteric sclerae + anicteric sclerae ENMT external ear and nose normal, oropharynx normal Neck normal visual inspection and trachea midline Respiratory normal respiratory effort, lungs clear to auscultation Cardiovascular Rate/Rhythm: regular rhythm and + bradycardic Heart Sounds: normal S1 and normal S2; no murmur Vessels: no JVD Extremities: no edema Gastrointestinal (Abdomen) normal bowel sounds, soft, nontender, no hepatosplenomegaly Skin no rashes, warm and dry Neurologic Motor/Sensory: + tremor (tongue, face) Psychiatric A+Ox3, euthymic affect Discharge Data Allergies Allergy/AdvReac Type Severity Reaction Status Date / Time allopurinol Allergy Unknown COUGH Verified 07/15/20 22:15 blue dye Allergy Unknown BRILLIANT Verified 07/15/20 22:15 BLUE FCF dimethyl fumarate Allergy Unknown UNKNOWN Verified 07/15/20 22:15 Consultations 07/30/20 17:37 ED Decision to Admit Stat 07/30/20 19:23 Consult Case Management - Discharge Planning Routine Ordered Studies 07/30/20 15:26 CT head/brain wo con Stat Hospital Course (1) Altered mental status: Luisana Muhammad is a 80 yo female with complex PMHx who was recently admitted 07/15/20 -07/20/20 for progressive weakness and multiple falls - she was discharged to [facility] for rehab (was only there for 5 days). She was readmitted 07/30/2020 for altered mental status - etiology thought to be from narcotic overuse (fentanyl patch in the setting of MARY; impaired renal clearance causing relative increase in fentanyl level). Patch now removed with report of increased leg pain. AMS - per EMS, patient had Fentanyl patch in place (uses this chronically) and had pinpoint pupils on initial assessment - arousable and quick improvement in mental status after administration of Narcan x1 - suspect AMS 2/2 narcotic overdose as Fentanyl patch has 75% urinary excretion and patient has MARY on CKD (see below) - Fentanyl patch discontinued on 08/01/20 - Head CT negative on admission - MOCHA was conducted in an effort to get a baseline, but tested was limited give her sensory impairment (legally blind). MARY on CKD - baseline Cr 1.3-1.5 - Cr 3.5 on admission, down to 1.6 on day of discharge - suspected pre-renal injury 2/2 dehydration - patient was given bolus in the ED and gentle IVF with close monitoring for fluid status - held nephrotoxic home meds - Lisinopril and Lasix - Resumed home meds on discharge - Recommend biweekly BMP's with home nursing after discharge. Vomiting - history revealed non-bloody, non-bilious vomiting once daily for several weeks, was on chronic PPI for years but stopped taking this recently - likely contributing to MARY (volume loss) - started Protonix 40 mg PO daily, continued on discharge. - continue home Promethazine 12.5 mg PO Q6H PRN GERD - uncontrolled, with daily symptoms --> re-started PPI with Protonix 40 mg PO daily as above Electrolyte Abnormalities - resolving - Resolved Paroxysmal Atrial Fibrillation - sinus rhythm on discharge - no anti-coagulation via Warfarin or DOAC as patient frequently has severe falls - continued home Propranolol for rate control - continued home amiodarone for rate/rhythm control - Patient with relatively high risk for stroke, while understandable that there are concerns for falls would revisit anticoagulation for stroke prevention at follow up with PCP. Chronic Systolic CHF - last TTE on 05/16/2020 showed EF 45-50% and decreased systolic function - Held Lisinopril and Lasix in setting of MARY, resumed on discharge. - continued home Imdur 120 mg - strict I/Os, daily weights, sodium-restricted diet CAD - NSTEMI and stents placed in 2009 - continued home Plavix 75 mg PO daily and rosuvastatin T2DM - A1c 5.5 on 07/16; at goal - basal insulin + SSI while hospitalized Anxiety - continued home Buspar and Ativan Interstitial Lung Disease - no current cough or wheezing - PRN duo nebs ordered Seizure Disorder - continued Carbamazepine 200mg PO daily Hypothyroidism - TSH 10.9 (was 5.18 on 07/15), Free T4 1.04 - continued Synthroid 100 mcg daily - recommend f/u TSH/free T4 as outpatient Normocytic Anemia - Was transfused 2 units of PRBC due to anemia of hgb 6.5 - Hgb 10 on day of discharge HLD - continued Rosuvastatin 5 mg PO QHS Parkinsons Disease - tremor on exam - patient does not appear to be on any home medications (2) Acute on chronic renal failure: (3) Vomiting: (4) Atrial fibrillation: (5) Anemia of chronic disease: (6) Acute hyponatremia: (7) Acute hyperkalemia: (8) Chronic diastolic heart failure: (9) History of recent fall: (10) Multiple sclerosis: (11) Hypertension: (12) Interstitial lung disease: (13) Seizure disorder: (14) Hypothyroidism: (15) Legally blind: (16) CAD (coronary artery disease): Total Time Total Time Spent Total Time Spent (In Minutes): <30 Discharge Plan Discharge Items Patient Disposition: Home - Home Health Services Reason For Visit: AMS Discharge Diagnosis: Acute Kidney Injury Condition on Discharge: Fair Activity: Per Instructions section Non-emergency contact: Primary Care Provider Call non-emergency contact if: you have any medication questions and your symptoms worsen Follow-up/Referrals: Chris Reis PA-C [Primary Care Provider] - Diet: Low Sodium (2gm) Addtl Attending Provider Instructions: Ms. Muhammad, It was our pleasure caring for you at [facility] from 07/30- 08/02 for your acute kidney injury and altered mental status. Please see below for a summary of your care and future instructions: Altered Mental Status -On admission you were found to have passed out at home and EMS was called -There was concerns for for an opioid overdose and you were given Narcan by the EMS which woke you up -It is believed that this occurred due to the Fentanyl patch you had been using which is primarily excreted (removed from the body) by your kidneys. -Since your kidneys were not working as well (please see below for MARY), less of the Fentanyl was being removed and as a result you had higher levels of Fentanyl in your body and blood. -You were weaned off of the Fentanyl patch while inpatient and have been doing well. Acute Kidney Injury (MARY) -At your admission your kidney function was impaired, we suspect this was secondary to dehydration. -You had noted that you had been vomiting significantly prior to your admission and this was likely a cause to your dehydration. -We held your blood pressure medications while you were inpatient to prevent worsening of your kidney function. -You were also given IV fluids to hep rehydrate you. -At discharge, your kidney function is almost entirely back to normal. -We recommend that you have home nursing draw BMPs (basic metabolic panels) biweekly until you see your PCP again to ensure that your kidney function continues to improve. GERD -You had been on a PPI in the past for your GERD symptoms -Due to a worsening of your symptoms, you were restarted on Protonix 40mg by mouth daily -Please continue Protonix 40mg by mouth daily, this was sent to your pharmacy. Chronic Systolic CHF -We held your Lisinopril and Lasix due to your kidney function while inpatient. Please resume these at home. -Please continue your Imdur -Continue to follow a low sodium diet. Hypothyroidism -Your TSH was elevated at 10.9 while inpatient with Free T4 1.04. -We would recommend that you have your TSH and Free T4 checked again in roughly 1 month outpatient -Please continue your Synthroid 100mcg daily otherwise Normocytic Anemia -While inpatient you were seen to be anemic -You were given 2 units of packed red blood cells -Please continue your iron supplement, this was sent to your pharmacy Please continue your remaining home medications as prescribed. Please follow up with your PCP in the next 1-2 weeks. Please have home nursing draw biweekly BMPs to ensure your kidney function is improving. Pending Studies at Discharge: No Stand-Alone Forms: [facility], Smoking Cessation Medications and DC Order Prescriptions: New pantoprazole 40 mg Tablet,Delayed Release (Dr/Ec) 40 mg PO DAILY 30 Days Qty: 30 RF: 0 ferrous sulfate 325 mg (65 mg iron) Tablet,Delayed Release (Dr/Ec) 325 mg PO QAM Qty: 30 RF: 0 Continued biotin 5 mg tablet 5 tab PO DAILY RF: 0 aspirin 81 mg tablet,delayed release (DR/EC) 81 mg PO DAILY RF: 0 buspirone 10 mg tablet 10 mg PO BID PRN (Reason: Anxiety) RF: 0 levothyroxine [Synthroid] 100 mcg tablet 100 mcg PO DAILY RF: 0 lorazepam 0.5 mg tablet 0.5 mg PO QPM PRN (Reason: Anxiety) RF: 0 nitroglycerin 0.4 mg tablet, sublingual 0.4 mg SL Q5M PRN (Reason: Chest Pain) RF: 0 senna 8.6 mg Capsule 8.6 mg PO BID PRN (Reason: Constipation) RF: 0 acetaminophen [Tylenol] 325 mg Tablet 650 mg PO Q6 PRN (Reason: Pain) RF: 0 folic acid 400 mcg Tablet 0.4 mg PO DAILY RF: 0 ergocalciferol (vitamin D2) [Vitamin D2] 1,250 mcg (50,000 unit) Capsule 1,250 mcg PO WK RF: 0 diclofenac sodium 1 % Gel 2 g TOPICAL QID PRN (Reason: Pain) RF: 0 amiodarone 200 mg tablet 100 mg PO DAILY RF: 0 metoprolol succinate 25 mg Tablet Extended Release 24 Hr 25 mg PO QAM Qty: 1 RF: 0 Lantus Solostar U-100 Insulin 100 unit/mL (3 mL) insulin pen 16 unit SC PM RF: 0 propranolol 80 mg tablet 80 mg PO BID RF: 0 promethazine 12.5 mg tablet 12.5 mg PO Q6H PRN (Reason: Nausea) RF: 0 isosorbide mononitrate 120 mg tablet extended release 24 hr 120 mg PO DAILY RF: 0 rosuvastatin 5 mg tablet 5 mg PO HS RF: 0 clopidogrel 75 mg Tablet 75 mg PO QAM Qty: 30 RF: 0 albuterol sulfate 2.5 mg /3 mL (0.083 %) Solution For Nebulization 2.5 mg INHALATION Q4H PRN (Reason: Shortness Of Breath Or Wheezing) RF: 0 amlodipine [Norvasc] 5 mg tablet 10 mg PO DAILY RF: 0 omeprazole 40 mg capsule,delayed release(DR/EC) 40 mg PO DAILY RF: 0 carbamazepine [Tegretol] 200 mg Tablet 200 mg PO DAILY RF: 0 docusate sodium 100 mg Capsule 100 mg PO TID RF: 0 lisinopril 2.5 mg tablet 5 mg PO DAILY RF: 0 vitamin E 1,000 unit Tablet 1,000 tab PO DAILY RF: 0 furosemide 40 mg Tablet 40 mg PO QAM Qty: 30 RF: 0 Discontinued fentanyl [Duragesic] 25 mcg/hr patch 72 hour 25 mcg topical [id number] RF: 0 Discharge Orders: Discharge Order (Routine); Ordered 08/02/20 Ordered By: Kaden Iverson Admission Data Admit Date/Time: 07/30/20 19:35 Attending Provider: Modesto Pate Admit Provider: Lico Smith Primary Care Provider: Chris Reis Other Providers: Kaden Chavez ; Maggie Shah Other Interventions: Discharge Summary Assessment (RN) Last Done: 08/02/20 12:23 Supervising Physician Co-Signing Physician Notes I personally examined the patient and verified all wright points of history and exam, discussed case, and agree with decision making with Dr Moreno. overnight events noted. feels OK now. really wants to go home. no new complaints vitals noted nad heent nc at mmm breathing unlabored no accessory muscles good effort skin no rashes no pallor or icterus neuro visually impaired no acute focal neuro deficits AMS - ARF + fentanyl patch. improved ARF - ?most likely meds/volume of intake related leading to prerenal situation. improving. home on meds as outlined, but close follow up, biweekly BMP leg pain - fentanyl patch stopped, pt not noting any increase in pain weakness - after questioning/following/considering - does appear she has capacity, just fairly bad judgement. with pt wanting to go home and willing to take her - obligated to dc home. w 6-clicks for PT being 20, she has potential to do OK. emphasized safety adamantly to pt - expressed legitimate concern that she is high risk for serious fall and serious (permanent) consequences. otherwise as above Resident Activity Tracking Resident Involvement: Resident Care Provided Care Provided: Adult Hospital Medicine
--- NOTE | 2020-08-02 18:29 | Billing Data ---
Date of Service August 02, 2020 Coding Level of Care Code D/C Day Management <30 mins
--- NOTE | 2020-08-12 10:33 | Coding Query ---
To promote full compliance with coding requirements relating to patient care, provider participation is requested in all cases of band saw operator uncertainty. Please assist us with the question(s) below: Coding Question(s): The diagnosis(es) below was documented in the SUPERVISING PHYSICIAN DOCUMENTATION ON THE 07/31/20 PROGRESS NOTE WITH DOCUMENTATION OF, "maybe jaky from atn due to diuretics and star, complicated by transderm fentanyl reduced clearance by renal disease causing toxic encephalopathy, the toxic encephalopathy has resolved and are completing workup for other causes of metabolic encephalopathy", then subsequently fell off all further documentation. Please indicate if it is still a possible diagnosis or ruled out. Physician's Response(s): POSSIBLE ATN ( ) Diagnosed and POA ( ) Diagnosed and not POA ( ) Ruled out ( x ) Other (please specify) possible but not confirmed TOXIC ENCEPHALOPATHY ( x ) Diagnosed and POA ( ) Diagnosed and not POA ( ) Ruled out ( ) Other (please specify) METABOLIC ENCEPHALOPATHY ( x ) Diagnosed and POA ( ) Diagnosed and not POA ( ) Ruled out ( ) Other (please specify) MTDD
== END 2020-08-02 13:42 | disposition home health service (06) | DRG 682 ==
LOC: ED 15:05 → 2W 19:35 → SUATTDRO 19:35 → 2W 20:51